=== PATIENT | female | born 1940 | race Caucasian/White ===

== ENCOUNTER 2019-12-03 08:39 | Outpatient (CLI) | payer MEDICARE, OTHER, SELFPAY ==
--- NOTE | ~2019-12-03 | MM_ITS ---
EXAMINATION: MM screening [place] [facility] w christofer HISTORY: Screening TECHNIQUE: Craniocaudal and mediolateral oblique 3-D tomosynthesis images were obtained and synthetic 2-D images were generated. CAD analysis was submitted and interpreted. COMPARISON: Comparison to multiple prior studies sequentially, with oldest reviewed study dated 02/02. BREAST PARENCHYMAL COMPOSITION: The breasts are heterogeneously dense, which may obscure small masses . FINDINGS: There stable benign breast calcifications. There is no evidence of suspicious mass, calcifi cation, or architectural distortion to suggest malignancy in either breast. There has been no suspici ous interval change. IMPRESSION: 1. No mammographic evidence of malignancy. 2. Recommend routine screening mammography in one year. BI-RADS Category 2: Benign finding(s). Reviewed, dictated and finalized at location A.
== END 2019-12-03 08:40 | disposition home or self-care (01) ==
PROVIDERS: PCP Obstetrics & Gynecology; Visit Provider Obstetrics & Gynecology
DX: Z12.31 Encounter for screening mammogram for malignant neoplasm of breast (principal)
CPT/HCPCS: 77063; 77067

== ENCOUNTER 2020-08-28 22:29 | Inpatient (IN) | payer MEDICARE, OTHER, SELFPAY ==
--- NOTE | ~2020-08-28 | US_ITS ---
EXAMINATION: US renal BI DATE: 08/29/2020 14:56 INDICATION: Severe right hydronephrosis TECHNIQUE: Multiple ultrasound grayscale images of the kidneys were obtained. COMPARISON: CT dated 08/28/2020 FINDINGS: The right kidney measures 12.4 x 5.9 x 7.7 cm. The left kidney which was severely atrophic with mild hydronephrosis on the prior CT images was unable to be visualized. There is increased cortical echoge nicity at the right kidney consistent with medical renal disease. 9 mm anechoic cyst at the lateral l ower pole of the right kidney. No shadowing nephrolithiasis. There is diffuse mild wall thickening th e bladder which remains fluid-filled despite the presence of a Hammer catheter. Some mobile hypoechoic clot is also seen within the bladder. IMPRESSION: 1. Slight improvement in still moderate right hydronephrosis which may be related to outlet obstruct ion with persistent fluid within the bladder despite the presence of a Hammer catheter. There is also some potentially obstructing hypoechoic clot within the bladder and would consider bladder irrigation . 2. Increased right renal cortical echogenicity consistent with medical renal disease. 3. Nonvisualized left kidney likely due to severe atrophy as seen on prior CT. Reviewed, dictated and finalized at location A. IMPRESSION: 1. Slight improvement in still moderate right hydronephrosis which may be rela stan to outlet obstruction with persistent fluid within the bladder despite the presence of a Hammer catheter. There is also some potentially obstructing hypoec hoic clot within the bladder and would consider bladder irrigation. 2. Increased right renal cortical echogenicity consistent with medical renal di sease. 3. Nonvisualized left kidney likely due to severe atrophy as seen on prior CT.
--- NOTE | ~2020-08-28 | CT_ITS ---
EXAMINATION: CT abdomen pelvis wo con DATE: 08/28/2020 23:31 INDICATION: Abdominal pain TECHNIQUE: Computed tomography (CT) of the abdomen and pelvis was performed without intravenous contr ast. The dose-length product was 417.58 mGy-cm. Automated exposure control and iterative reconstructi on technique were employed. COMPARISON: None. FINDINGS: There is right lower lobe atelectasis. Cardiomegaly. Small pericardial effusion. No signifi cant pleural effusion. There are extensive surgical changes in the upper abdomen suggesting gastric b ypass surgery. The liver, pancreas, adrenal glands are unremarkable. Severely atrophic left kidney wi th dilated renal pelvis. Possible left UPJ obstruction. There is severe right hydroureteronephrosis. The distal aspect of the ureter is not identifiable due to severe distention of the bladder. The this creates significant mass effect on the surrounding bowel. There is questionable gas in the posterior bladder wall, suspicious for emphysematous cystitis. There is a bone marrow donor site along the rig ht ilium. There are fusion changes at L5-S1 with bilateral cage prosthetic disc devices at L3-4 and L 4-5. IMPRESSION: 1. Severely dilated bladder with possible emphysematous cystitis. 2: Severe right hydroureteronephrosis. Distal aspect of the right ureter is not well visualized due t o bladder distention. 3: Severely atrophic left kidney with possible left UPJ obstruction. 4: Cardiomegaly with small pericardial effusion. Reviewed, dictated and finalized at location A. IMPRESSION: 1. Severely dilated bladder with possible emphysematous cystitis. 2: Severe right hydroureteronephrosis. Distal aspect of the right ureter is not well visualized due to bladder distention. 3: Severely atrophic left kidney with possible left UPJ obstruction. 4: Cardiomegaly with small pericardial effusion.
[2020-08-28 22:30] VITALS: BP 164/96; PULSE 72; RESP 20; TEMP 36.5; O2SAT 99
--- NOTE | 2020-08-28 22:40 | ED.ABDPAIN ---
HPI - Abdominal Pain General Chief Complaint: Abdominal Pain Stated Complaint: abd pain Time Seen by Provider: 08/28/20 22:40 Source: patient and family Mode of arrival: ambulatory Limitations: no limitations History of Present Illness HPI narrative: Patient is a 80-year-old female with a history of ischemic stroke 08/14/20, hospitalized at [facility], gastric bypass, bowel obstruction, hypertension who presents for evaluation of abdominal pain and distension. Patient has significant expressive aphasia secondary to her recent CVA, thus family provides the history. Patient reportedly has had lower abdominal pain and distention this evening with moaning and grimacing towards the abdomen. She has had decreased oral intake. No vomiting. Family is unsure the last time the patient had a bowel movement. She does have history of bowel obstruction in the past secondary to her gastric bypass surgery many years ago. Family is unsure the hospital that performed the gastric bypass. No fever, chills, cough or shortness of breath. Patient has been compliant with her medication. Pt with recent CVA, was given TPA and thrombectomy at [facility] with pt discharged home two weeks ago. Related Data Home Medications Medication Instructions Recorded Confirmed ascorbic acid (vitamin C) 500 mg mg PO 11/05/19 capsule atenolol 50 mg tablet 50 mg PO DAILY 11/05/19 calcium citrate 315 mg-vitamin D3 1 tablet PO TID 11/05/19 5 mcg (200 unit) tablet cholecalciferol (vitamin D3) 10 10 mcg PO DAILY 11/05/19 mcg (400 unit) capsule losartan 50 mg-hydrochlorothiazide 1 tablet PO DAILY 11/05/19 12.5 mg tablet mecobalamin (vitamin B12) 1,000 1,000 mcg SUBLINGUAL DAILY 11/05/19 mcg disintegrating tablet,sublingual misoprostol 200 mcg tablet 200 mcg PO QAM AND QHS 11/05/19 multivit with min-folic 1 tablet PO DAILY 11/05/19 acid-lutein 400 mcg-250 mcg chewable tablet omega 9-tch-ycz-fish oil 1,200 mg cap PO 11/05/19 (144 mg-216 mg) capsule vitamin B complex 1 tablet PO DAILY 11/05/19 vitamin E (dl, acetate) 90 mg (200 200 unit PO DAILY 11/05/19 unit) capsule Allergies Allergy/AdvReac Type Severity Reaction Status Date / Time naproxen Allergy Severe cardiac Verified 11/05/19 09:24 arrest NSAIDS (Non-Steroidal Allergy Severe cardiac Verified 11/05/19 09:24 Anti-Inflamma arrest morphine Allergy Mild unknown Verified 11/05/19 09:24 Review of Systems Review of Systems: ROS unobtainable: Yes unobtainable due to medical condition PMFSH Past Medical History Medical History History of gastroscopy 08/18/09, 09/09/09, with structure Hypertension Iron (Fe) deficiency anemia Kidney congenitally absent, 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 Vaginal delivery [birth year], , full term, female, 7#10 1970, , full term, female, 7#10 Surgical History Surgical History H/O rectal polypectomy 11/13/08, 08/27/03 H/O right heart catheterization 12/17/08 unsure if lt or rt History of breast biopsy 06/09/10, stereotactic, biopsy rt breast History of cholecystectomy 05/09/09 History of endoscopy 12/16/09, 02/10/10, 08/25/10, 04/26/18 History of esophagogastroduodenoscopy (EGD) 04/25/12, with upper GI History of eye surgery 11/05/14 cataract right eye, 11/20/14 cataract left eye, 07/28/18 bilateral removal of scar tissue 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pinal fusion 03/14/98 cervical discectomy and fusion of c4-6
[2020-08-28 22:50] LABS: Basophils Absolute Auto 0.1 K/mm3 (0.0-0.1); Basophils Percent Auto 0.7 % (0.2-1.2); Eosinophils Absolute Auto 0.2 K/mm3 (0-0.3); Eosinophils Percent Auto 2.2 % (0-4.4); Hematocrit 34.6 % (37.0-47.0); Hemoglobin 11.5 g/dL (12.0-15.0); Immature Granulocyte Absolute 0.04 K/mm3 (0.00-0.031); Immature Granulocyte Percent A 0.4 % (0-0.5); Lymphocytes Absolute Auto 1.35 K/mm3 (0.9-3.2); Lymphocytes Percent Auto 14.8 % (18.3-44.2); Mean Corpuscular HGB Conc 33.2 g/dl (32-36); Mean Corpuscular Hemoglobin 30.6 pg (26-34); Mean Platelet Volume 9.6 fl (7.4-10.4); Monocytes Absolute Auto 0.9 K/mm3 (0.1-0.6); Monocytes Percent Auto 9.4 % (2.6-8.5); Neutrophils Absolute Auto 6.6 K/mm3 (1.3-6.7); Neutrophils Percent Auto 72.5 % (45.5-73.1); Platelet Count Result 334 k/mm3 (150-375); Red Blood Count 3.76 M/mm3 (4.2-5.4); Red Cell Distribution Width 11.8 % (11.5-14.5); White Blood Count 9.1 K/mm3 (4.5-10.0)
[2020-08-28 23:00] LABS: Alanine Aminotransferase 12 U/L (4-35); Albumin Level 3.5 g/dL (3.5-5.1); Alkaline Phosphatase 85 U/L (38-126); Anion Gap 8 mmol/L (8-16); Aspartate Amino Transferase 23 U/L (14-36); Bilirubin,Total 0.6 mg/dL (0.2-1.3); Blood Urea Nitrogen 36 mg/dL (7-17); Carbon Dioxide 26 mmol/L (22-30); Chloride 101 mmol/L (98-107); Estimated CRCL calculation 10 ml/min; Estimated Glomerular Filt Rate 14; Glucose 124 mg/dL (65-105); Lipase 126 U/L (23-300); Sodium 135 mmol/L (137-145)
[2020-08-28 23:04] LABS: Atypical Lymphocytes Present; Platelet Estimate Adequate (Adequate)
[2020-08-28] MEDS: ONDANSETRON INJ 4 MG/2 ML VIAL IV PUSH (23:08)
[2020-08-28] MEDS: SODIUM CHLORIDE 0.9% IV 1,000 ML 999 ML IV CONT (23:08)
[2020-08-28] MEDS: HYDROmorphone HCL INJ (*CRX) 1 MG/ML SYR 0.5 MG IV PUSH (23:14)
--- NOTE | 2020-08-28 23:57 | PC.NURSE ---
2500ml of urine out via catheter at this time. sample sent to lab for UA and culture. RN clamped catheter at this time.
[2020-08-29] VITALS (8 sets, daily range): BP systolic 146–166; BP diastolic 67–83; PULSE 63–78; RESP 12–18; TEMP 35.8–36.6; O2SAT 94–99; BMI 23.0
[2020-08-29 00:17] LABS: Add Urine Microscopic? YES; Appearance Urine Clear (Clear); Bacteria Urine Trace /hpf; Bilirubin Urine Negative (Negative); Blood Urine Negative (Negative); Color Urine Straw (Yellow); Glucose Urine UA Negative (Negative); Ketones Urine Negative (Negative); Leukocyte Esterase Ur 2+ LEU/UL (Negative); Nitrate Urine Negative (Negative); Protein Urine Negative (Negative); Specific Grav Ur 1.006 (1.001-1.035); Squamous Epithelial Cell Urine Rare /hpf (Few); Urobilinogen Urine Negative mg/dL (<2.0); WBC Urine 16-20 /hpf
[2020-08-29 00:45] LABS: Lactic Acid Reflex 0.7 mmol/L (0.7-2.1)
--- NOTE | 2020-08-29 01:33 | PC.NURSE ---
Pt arrived from personal residence c daughter who reports pt has increased c/o abd pain and discomfort today. Per daughter, pt had a cva 07/2020 and was given tpa. currently lives at home c 24hour care. daughter denies that pt has any physical deficits, and pt able to ambulate independently. pt does have delayed speech, unsure if expressive or receptive aphasia. pt able to answer yes or no questions appropriately. abd hard on arrival. stone placed with output of >2500 ml urine. pt reports to this RN she feels better. Pt's daughter at bedside.
--- NOTE | 2020-08-29 02:10 | ADMGEN ---
This patient, Nicole Patricia, was admitted to Medical Room 347-01. Patient/family oriented to hospital policies and general routines including ID bracelet, bed and alarms, visiting hours, pain management, procedures, bathroom and other care routines, personal items, smoking policy, room service/diet, and visiting hours. Information on how to activate the Rapid Response Team has been discussed. Patient/Family are encouraged to report perceived risks to care and to ask questions if they do not understand what they are told or what they should do.
--- NOTE | 2020-08-29 02:18 | PC.NURSE ---
Prior to transport to Room 347-1, this RN was getting pt ready and upon assessing stone bag output, urine noted to now be bright red with visible clots approx size of a dime in catheter tubing. prior to this, urine appeared clear and yellow. ED MD Vaz notified of change, as well as admitting RN. No new orders provided. pt denies pain and does not appear to be in any distress. pt transported to 347 without difficulty.
--- NOTE | 2020-08-29 03:06 | PC.NURSE ---
Tried to obtain health history from patient when doing admission but patient kept saying no for every question and does not know home medications. Call placed to Patient's daughter and a message was left asking her to call us back at the nursing station to go over patients past medical history and medications. Will await call from daughter and then complete admission.
--- NOTE | 2020-08-29 06:40 | WPDURCON ---
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 Right hydronephrosis and renal dysfunction likely resulting from incomplete bladder emptying. Await repeat labs to see if her renal function is improved with bladder drainage. Will also schedule a renal ultrasound to follow-up on right hydronephrosis. This may not completely resolve if she has had long-standing upper tract distention. Complete atrophy of her left kidney appears to be a longstanding process, likely resulting from ischemia. There is nothing to do for this at this point. My anticipation is that her renal function and hydronephrosis will resolve with catheter placement. She will likely need to have a catheter indwelling until she can follow-up for outpatient urodynamics. Urology Consult Note HPI Date Seen: 08/29/20 Requesting Physician: Irina Kendrick DO Primary Care Provider: FEATHER BONER PHYSICIAN Consult Narrative Narrative: Nicole Patricia is a 80 year old female, previously a known to our practice, who is confused and unable to supply a reliable history. She has multiple comorbidities as outlined elsewhere. She presented to the emergency department with suggestion of abdominal discomfort. With examination she was easily noticed to have bladder distention, confirmed by CT scan. Catheter placement her abdominal distention resolved and she appears to be feeling better. CT imaging reveals massive bladder distention with right hydronephrosis and an atrophic left kidney. 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 Vaginal delivery 1960, , full term, female, 7#10 1969, , full term, female, 7#10 Surgical History Surgical History H/O rectal polypectomy 11/13/08, 08/27/03 H/O right heart catheterization 12/17/08 unsure if lt or rt History of breast biopsy 06/09/10, stereotactic, biopsy rt breast History of cholecystectomy 05/09/09 History of endoscopy 12/16/09, 02/10/10, 08/25/10, 04/26/18 History of esophagogastroduodenoscopy (EGD) 04/25/12, with upper GI History of eye surgery 11/05/14 cataract right eye, 11/20/14 cataract left eye, 07/28/18 bilateral removal of scar tissue 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ing MARCUS L4-5, L3-4, Doscectomy/fusion lt iliac crest graft 10/12/01 cervical discectomy and fusion of c6-7 History of spinal surgery 02/10/16 lumbar decompressive laminectomy, transformal lumbar interbody fusion with PEEK spacers, posterior intertransverse fusion, posterior spinal instrumentation, harvesting bone graft History of stress incontinence procedure usin
--- NOTE | 2020-08-29 07:06 | PM.IMHP ---
H&P: HPI History of Present Illness Date/Time: 08/29/20 06:30 Chief Complaint: Abdominal pain Narrative: 80-year-old female with past medical history of ischemic stroke 08/14/2020, gastric bypass procedure of prior bowel obstruction and hypertension who presented to the ER from home with abdominal pain and distension. Source of information is ER records as the patient has significant expressive aphasia and difficulty following commands following her recent CVA. Nursing staff attempted to contact the family but there was no response. The patient's family told the ER staff that the patient had been moaning and grimacing and gesturing towards her abdomen. She had had decreased oral intake. She had not been having any vomiting. The family was unsure as to when the patient had had her last bowel movement. In the ER noncontrast CT scan was performed of the abdomen which demonstrated marked dilatation of the bladder and significant right hydroureter. Her left kidney was noted to be atrophic. 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 A Hammer catheter was placed in the ER and the patient had immediate return of 2.5 L of urine. They did not clamped the patient's Hammer catheter. By the time patient arrived to the medical floor she had bloody urine in the Hammer bag with a few blood clots. The patient was treated at [facility] for her ischemic stroke 08/14/2020. She had tPA and thrombectomy. She was discharged home 2 weeks ago. The patient has difficulty following commands with the left side of her body. 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 She mostly speaks in word salad. She will answer yes and no questions with her responses seeming appropriate. Review of Systems Review of Systems: ROS unobtainable: Yes unobtainable due to medical condition (Expressive aphasia) [facility] Past Medical History Medical History (Updated 08/29/20 @ 07:22 by Irina Kendrick DO) Atrophy of left kidney History of gastroscopy 08/18/09, 09/09/09, with structure Hypertension Iron (Fe) deficiency anemia Ischemic cerebrovascular accident (CVA) (08/14/20) Treated with tPA and thrombectomy Vaginal delivery 1960, , full term, female, 7#10 1970, , full term, female, 7#10 Surgical History Surgical History H/O rectal polypectomy 11/13/08, 08/27/03 H/O right heart catheterization 12/17/08 unsure if lt or rt History of breast biopsy 06/09/10, stereotactic, biopsy rt breast History of cholecystectomy 05/09/09 History of endoscopy 12/16/09, 02/10/10, 08/25/10, 04/26/18 History of esophagogastroduodenoscopy (EGD) 04/25/12, with upper GI History of eye surgery 11/05/14 cataract right eye, 11/20/14 cataract left eye, 07/28/18 bilateral removal of scar tissue 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ing MARCUS L4-5, L3-4, Doscectomy/fusion lt iliac crest graft 10/12/01 cervical discectomy and fusion of c6-7 History of spinal surgery 02/10/16 lumbar decompressive laminectomy, transformal lumbar interbody fusion with PEEK spacers, posterior intertransverse fusion, posterior spinal instrumentation, harvesting bone graft History of stress incontinence procedure using tension free vaginal tape 05/18/01 Hx of breast surgery 07/27/10, mastopexy Family History Family History Grandparent Family history of malignant neoplasm of ovary
[2020-08-29] MEDS: SODIUM CHLORIDE 0.9% IV 1,000 ML 100 ML IV CONT (07:47)
[2020-08-29 08:14] LABS: Anion Gap 5 mmol/L (8-16); Blood Urea Nitrogen 30 mg/dL (7-17); Calcium 8.6 mg/dL (8.4-10.2); Carbon Dioxide 29 mmol/L (22-30); Chloride 106 mmol/L (98-107); Estimated CRCL calculation 11 ml/min; Estimated Glomerular Filt Rate 15; Glucose 91 mg/dL (65-105); Potassium 4.9 mmol/L (3.4-5.0); Sodium 140 mmol/L (137-145)
[2020-08-29 08:17] LABS: Hematocrit 29.6 % (37.0-47.0); Hemoglobin 9.9 g/dL (12.0-15.0); Mean Corpuscular HGB Conc 33.4 g/dl (32-36); Mean Corpuscular Hemoglobin 30.9 pg (26-34); Mean Corpuscular Volume 92.5 fl (80-100); Mean Platelet Volume 10.3 fl (7.4-10.4); Platelet Count Result 303 k/mm3 (150-375); Red Cell Distribution Width 11.7 % (11.5-14.5); White Blood Count 6.6 K/mm3 (4.5-10.0)
--- NOTE | 2020-08-29 09:22 | PC.NURSE ---
Patient's daughter called for status update; PMH reviewed and medication list updated per daughter.
--- NOTE | 2020-08-29 11:07 | PM.IMPN ---
Progress Note: A&P Assessment and Plan (1) Hydronephrosis, right: Code(s): N13.30 - Unspecified hydronephrosis Status: Acute (2) Acute urinary retention: Code(s): R33.8 - Other retention of urine Status: Acute (3) Acute kidney injury: Code(s): N17.9 - Acute kidney failure, unspecified Status: Acute (4) Emphysematous cystitis: Code(s): N30.80 - Other cystitis without hematuria Status: Acute (5) Hematuria, gross: Code(s): R31.0 - Gross hematuria Status: Acute Additional Plan Patiet presents with abdoinal pain and found to have acute urinary retention resulting in obstructive uropathy and severe right hydronephrosis in setting with the patient with an atrophic left kidney. The patient had rapid decompression of her bladder and subsequently has developed hematuria. UA noted. She was started on Rocephin for suspected emphysematous cystitis. Urine cultures are pending. Cr 3. on admission but already trended down. Baseline Cr unknown. Will need old records to review. Urology has been consulted. Resume home medications but hold Plavix. Also on Atenolol and Coreg and will continue the latter of the two. Hold Losartan and HCTZ for now. Resume PT/OT. Subjective Date/time seen: 08/29/20 11:07 Interval history: 80yo female with hx of CVA and has expressive aphasia here for abdominal pain. Patient is alert but aphasic and have difficulty obtaining hx. She denies chest pain. No further abd pain. Eating okay and denies n/v. Exam Narrative: Exam Narrative: AF 97.7 148/80 68 17 98% ra Gen - NARD Chest - decreased BS in the bases o/w clear. nmlRR CV - RRR S1/S2 Abd - Soft, NT/ND, Positive BS - Hammer secured with gross hematuria and clots in the urine Ext - No pedal edema Neuro - Alert. aphasic. difficulty following commands. right sided 4/5 weakness. Psych - pleasant and cooperative Skin - Warm and dry Objective Data Vital Signs Vital Signs: Vital Signs - 24 hr 08/28/20 22:30 08/29/20 00:16 08/29/20 01:26 Temperature 97.7 F Pulse Rate 72 78 63 Respiratory Rate 20 12 16 Blood Pressure 164/96 H 161/80 H 162/70 H Pulse Oximetry 99 99 94 08/29/20 01:53 08/29/20 05:12 Temperature 97.7 F Pulse Rate 63 68 Respiratory Rate 16 17 Blood Pressure 150/69 H 148/80 H Pulse Oximetry 94 98 Intake/Output Intake/Output: Intake & Output 08/26/20 08/27/20 08/28/20 08/29/20 23:59 23:59 23:59 23:59 Intake Total 1170 Output Total 1550 Balance -380 Meds/Results Medications: Active Medications Generic Name Dose Route Start Last Admin Trade Name Freq PRN Reason Stop Dose Admin Sodium Chloride 1,000 mls @ 100 mls/hr 08/29/20 07:25 08/29/20 07:47 Normal Saline Iv IV CONT 100 mls/hr .Q10H MADY Administration Ceftriaxone Sodium/Dextrose 1 gm in 50 mls @ 100 mls/hr 08/30/20 05:00 Rocephin 1 Gm/D5w 50 Ml IVPB Q24H [facility] Radiology Results: ITS Impressions Abdomen/Pelvis CT 08/28/20 23:33 IMPRESSION: 1. Severely dilated bladder with possible emphysematous cystitis. 2: Severe right hydroureteronephrosis. Distal aspect of the right ureter is not well visualized due to bladder distention. 3: Severely atrophic left kidney with possible left UPJ obstruction. 4: Cardiomegaly with small pericardial effusion. Labs Labs: Laboratory Results - last 24 hr 08/28/20 08/28/20 08/28/20 22:46 22:46 23:56 WBC 9.1 RBC 3.76 L Hgb 11.5 L Hct 34.6 L MCV 92.0 MCH 30.6 MCHC 33.2 RDW 11.8 Plt Count 334 MPV 9.6 Immature Gran % (Auto) 0.4 Neut % (Auto) 72.5 Lymph % (Auto) 14.8 L [place] % (Auto) 9.4 H Eos % (Auto) 2.2 Baso % (Auto) 0.7 Lymph # (Auto) 1.35 [place] # (Auto) 0.9 H Eos # (Auto) 0.2 Baso # (Auto) 0.1 Abs Immat Gran (auto) 0.04 H Absolute Neuts (auto) 6.6 Absolute Nucleated RBC 0.0 Nucleated RBC % 0.0 Atypical Lymph
--- NOTE | 2020-08-29 14:38 | PCOTNOTE ---
OT evaluation attempted. Patient down for testing. Will attempt at later time.
[2020-08-29] MEDS: carvediloL 25 MG TABLET PO ×2 (16:18→21:13)
[2020-08-30 05:40] LABS: Hemoglobin 10.4 g/dL (12.0-15.0); Mean Corpuscular HGB Conc 33.5 g/dl (32-36); Mean Corpuscular Hemoglobin 30.7 pg (26-34); Mean Corpuscular Volume 91.4 fl (80-100); Mean Platelet Volume 9.9 fl (7.4-10.4); Platelet Count Result 321 k/mm3 (150-375); Red Blood Count 3.39 M/mm3 (4.2-5.4); Red Cell Distribution Width 11.7 % (11.5-14.5); White Blood Count 7.4 K/mm3 (4.5-10.0)
[2020-08-30 05:49] LABS: Alanine Aminotransferase 10 U/L (4-35); Albumin Level 2.9 g/dL (3.5-5.1); Alkaline Phosphatase 77 U/L (38-126); Anion Gap 4 mmol/L (8-16); Aspartate Amino Transferase 23 U/L (14-36); Bilirubin,Total 0.3 mg/dL (0.2-1.3); Blood Urea Nitrogen 25 mg/dL (7-17); Calcium 8.7 mg/dL (8.4-10.2); Carbon Dioxide 29 mmol/L (22-30); Chloride 105 mmol/L (98-107); Estimated CRCL calculation 15 ml/min; Estimated Glomerular Filt Rate 21; Glucose 97 mg/dL (65-105); Phosphorus 5.2 mg/dL (2.5-4.5); Potassium 4.6 mmol/L (3.4-5.0); Sodium 138 mmol/L (137-145)
[2020-08-30 05:55] VITALS: BP 137/83; PULSE 74; RESP 16; TEMP 36.5; O2SAT 98
--- NOTE | 2020-08-30 07:21 | WPDUROPN2 ---
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 Right hydronephrosis and renal dysfunction likely resulting from incomplete bladder emptying. Await repeat labs to see if her renal function is improved with bladder drainage. Will also schedule a renal ultrasound to follow-up on right hydronephrosis. This may not completely resolve if she has had long-standing upper tract distention. Complete atrophy of her left kidney appears to be a longstanding process, likely resulting from ischemia. There is nothing to do for this at this point. My anticipation is that her renal function and hydronephrosis will resolve with catheter placement. She will likely need to have a catheter indwelling until she can follow-up for outpatient urodynamics. 08/30/20 Yesterday, based on renal ultrasound results showing possible clots in her bladder, I irrigated several clots without difficulty at the bedside. Ever since, her urine has been draining freely and is now clear. . Serum creatinine improved significantly today. As above, will plan to leave catheter in snf, at least until she can have outpatient urodynamics. Subjective Subjective Date/Time Seen: 08/30/20 07:21 Comfortable, catheter draining well - urine clear. Review of Systems Review of Systems: ROS unobtainable: Yes unobtainable due to mental status Exam Const: General: no acute distress Resp: Effort & Inspection: normal respiratory effort GI: Inspection: non-distended GI Palp: No abdominal tenderness and No Guarding due to palpation present (GI) Auscultation: normal bowel sounds Objective Data Vital Signs Vital Signs: Vital Signs - 24 hr 08/29/20 16:01 08/29/20 16:18 08/29/20 21:12 Temperature 96.5 F L 97.8 F Pulse Rate 64 64 66 Respiratory Rate 18 15 Blood Pressure 166/83 H 146/67 H Pulse Oximetry 96 97 08/29/20 21:13 08/30/20 05:55 Temperature 97.7 F Pulse Rate 64 74 Respiratory Rate 16 Blood Pressure 137/83 Pulse Oximetry 98 Intake/Output Intake/Output: Intake & Output 08/27/20 08/28/20 08/29/20 08/30/20 23:59 23:59 23:59 23:59 Intake Total 1824 400 Output Total 3500 1999 Balance -4504 -1600 Meds/Results Medications: Active Medications Generic Name Dose Route Start Last Admin Trade Name Freq PRN Reason Stop Dose Admin Atorvastatin Calcium 80 mg 08/30/20 09:00 Atorvastatin 40 Mg Tablet PO DAILY MADY Carvedilol 25 mg 08/29/20 11:15 08/29/20 21:13 Carvedilol 25 Mg Tablet PO 25 mg Q12HR MADY Administration Ceftriaxone Sodium/Dextrose 1 gm in 50 mls @ 100 mls/hr 08/30/20 05:00 08/30/20 05:33 Rocephin 1 Gm/D5w 50 Ml IVPB Infused Q24H MADY Infusion Pantoprazole Sodium 40 mg 08/30/20 09:00 Pantoprazole 40 Mg Tablet PO DAILY [facility] Radiology Results: ITS Impressions Abdomen/Pelvis CT 08/28/20 23:33 IMPRESSION: 1. Severely dilated bladder with possible emphysematous cystitis. 2: Severe right hydroureteronephrosis. Distal aspect of the right ureter is not well visualized due to bladder distention. 3: Severely atrophic left kidney with possible left UPJ obstruction. 4: Cardiomegaly with small pericardial effusion. Renal Ultrasound 08/29/20 14:58 IMPRESSION: 1. Slight improvement in still moderate right hydronephrosis which may be related to outlet obstruction with persistent fluid within the bladder despite the p
[2020-08-30] MEDS: PANTOPRAZOLE 40 MG TABLET PO (09:27)
[2020-08-30] MEDS: ATORVASTATIN 40 MG TABLET 80 MG PO (09:27)
[2020-08-30 09:28] VITALS: PULSE 80
[2020-08-30] MEDS: carvediloL 25 MG TABLET PO ×2 (09:28→20:31)
--- NOTE | 2020-08-30 11:12 | PM.IMPN ---
Progress Note: A&P Assessment and Plan (1) Acute urinary retention: Code(s): R33.8 - Other retention of urine Status: Acute Assessment and Plan: Likely due to recent CVA--neurogenic bladder? -Hammer in place and the plan is for her to be discharged on this -Pt's bladder was decompressed rapidly which likely caused the hematuria/clots -u/s 08/29 showed slight improvement in moderate right hydronephrosis. Urology flushed the catheter and did gets some clots out. Hopefully this will improve her hydronephrosis. (2) Acute kidney injury: Code(s): N17.9 - Acute kidney failure, unspecified Status: Acute Assessment and Plan: Unclear of baseline at this time -May have some component of CKD since she has severe atrophy of her left kidney -Will give her 500mls of LR at 50mls/hr to see if this will improve her kidney function, will monitor for fluid overload. Daughter denies hx of CHF -await records -continue to hold losartan and chorthalidone at this time (3) Hydronephrosis, right: Code(s): N13.30 - Unspecified hydronephrosis Status: Acute Assessment and Plan: Likely due to urinary retention -continue ceftriaxone for possible infection although UA looks okay -Hammer catheter was flushed 08/29/20 by urology and her creatinine improved with this (4) Hematuria, gross: Code(s): R31.0 - Gross hematuria Status: Acute Assessment and Plan: As above -because of her recent stroke (07/15/20) will restart plavix and monitor for symptoms. Spoke with Dr. chávez about this plan. (5) History of recent stroke: Code(s): Z86.73 - Personal history of transient ischemic attack (TIA), and cerebral infarction without residual deficits Status: Acute Assessment and Plan: Pt [facility] 07[facility] where she had tPa and thrombectomy -She continues to have expressive aphasia but no other significant deficits -Will restart plavix at this time -continue PT/OT/ST (6) Atrophy of left kidney: Code(s): N26.1 - Atrophy of kidney (terminal) Status: Acute Assessment and Plan: Noted on imaging -she will need routine monitoring of her kidney function outpt (7) Expressive aphasia: Code(s): R47.01 - Aphasia Status: Acute Assessment and Plan: Unchanged since her stroke last month -Continue ST (8) Hypertension: Code(s): I10 - Essential (primary) hypertension Status: Acute Assessment and Plan: last bp 137/83 -continue coreg -hold losartan -plan to d/c atenolol at discharge Time Spent With Patient Time with patient: 25 - 35 minutes Subjective Date/time seen: 08/30/20 11:12 Interval history: Pt is a 80-year-old female here for hydronephrosis, MARIELLA, and bladder clots. Patient was seen today and has some baseline expressive aphasia but is able to answer yes or no questions and hold a conversation. Patient states she is doing well and is currently not in any pain. Pt denies nausea, vomiting, fevers, chills, constipation, diarrhea, chest pain, sob, or abdominal pain. She is eating and drinking well. Review of Systems Review of Systems: All systems reviewed & are unremarkable except as noted in HPI and below Exam Narrative: Exam Narrative: General: Well developed well nourished patient in NAD HEENT: normocephalic Neck: supple Neuro: Expressive aphasia. Equal strength the upper lower extremities 5/5 CV:RRR Resp:CTA Abd: Soft, non distended. No pain to palpation. Positive bowel sounds Extremities: No swelling, erythema, or pain to palpation. Objective Data Vital Signs Vital Signs: Vital Signs - 24 hr 08/29/20 16:01 08/29/20 16:18 08/29/20 21:12 Temperature 96.5 F L 97.8 F Pulse Rate 64 64 66 Respiratory Rate 18 15 Blood Pressure 166/83 H 146/67 H Pulse Oximetry 96 97 08/29/20 21:13 08/30/20 05:55 08/30/20 09:28 Temperature 97.7 F Pulse Rate 64
[2020-08-30] MEDS: CLOPIDOGREL BISULFATE 75 MG TABLET PO (12:00)
[2020-08-30] MEDS: LACTATED RINGERS 500 ML 50 ML IV CONT (12:00)
[2020-08-30 14:00] VITALS: BP 127/72; PULSE 75; RESP 16; TEMP 37; O2SAT 98
[2020-08-30] MEDS: CYCLOBENZAPRINE HCL 10 MG TABLET PO (17:21)
[2020-08-30 20:07] VITALS: BP 136/78; PULSE 76; RESP 16; TEMP 36.2; O2SAT 94
[2020-08-30 20:31] VITALS: PULSE 76
[2020-08-31 05:52] VITALS: BP 151/79; PULSE 70; RESP 16; TEMP 36; O2SAT 97
[2020-08-31 05:52] LABS: Anion Gap 3 mmol/L (8-16); Blood Urea Nitrogen 22 mg/dL (7-17); Calcium 8.5 mg/dL (8.4-10.2); Carbon Dioxide 28 mmol/L (22-30); Chloride 106 mmol/L (98-107); Estimated CRCL calculation 18 ml/min; Estimated Glomerular Filt Rate 26; Glucose 93 mg/dL (65-105); Potassium 3.8 mmol/L (3.4-5.0); Sodium 137 mmol/L (137-145)
[2020-08-31 08:09] VITALS: PULSE 78
[2020-08-31] MEDS: ATORVASTATIN 40 MG TABLET 80 MG PO (08:09)
[2020-08-31] MEDS: carvediloL 25 MG TABLET PO ×2 (08:09→20:43)
[2020-08-31] MEDS: PANTOPRAZOLE 40 MG TABLET PO (08:09)
[2020-08-31] MEDS: CLOPIDOGREL BISULFATE 75 MG TABLET PO (08:09)
--- NOTE | 2020-08-31 09:25 | WPDUROPN2 ---
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 Right hydronephrosis and renal dysfunction likely resulting from incomplete bladder emptying. Await repeat labs to see if her renal function is improved with bladder drainage. Will also schedule a renal ultrasound to follow-up on right hydronephrosis. This may not completely resolve if she has had long-standing upper tract distention. Complete atrophy of her left kidney appears to be a longstanding process, likely resulting from ischemia. There is nothing to do for this at this point. My anticipation is that her renal function and hydronephrosis will resolve with catheter placement. She will likely need to have a catheter indwelling until she can follow-up for outpatient urodynamics. 08/30/20 Yesterday, based on renal ultrasound results showing possible clots in her bladder, I irrigated several clots without difficulty at the bedside. Ever since, her urine has been draining freely and is now clear. . Serum creatinine improved significantly today. As above, will plan to leave catheter in snf, at least until she can have outpatient urodynamics. 08/31/20 Urine remains clear following resumption of anticoagulation. Subjective Subjective Date/Time Seen: 08/31/20 09:25 Exam Const: General: comfortable, no acute distress and confusion Nutritional Appearance: average body habitus Orientation/consciousness: No oriented to place, No oriented to time and confusion HENMT: Head: normal to inspection Resp: Effort & Inspection: normal respiratory effort GI: Inspection: normal to inspection and non-distended Auscultation: normal bowel sounds Urinary Catheter: Urinary Catheter: patent and draining and urine pink Neuro: General: No oriented to place, No oriented to time and confusion Objective Data Vital Signs Vital Signs: Vital Signs - 24 hr 08/30/20 09:28 08/30/20 14:00 08/30/20 20:07 Temperature 98.6 F 97.2 F L Pulse Rate 80 75 76 Respiratory Rate 16 16 Blood Pressure 127/72 136/78 Pulse Oximetry 98 94 08/30/20 20:31 08/31/20 05:52 08/31/20 08:09 Temperature 96.8 F L Pulse Rate 76 70 78 Respiratory Rate 16 Blood Pressure 151/79 H Pulse Oximetry 97 Intake/Output Intake/Output: Intake & Output 08/28/20 08/29/20 08/30/20 08/31/20 23:59 23:59 23:59 23:59 Intake Total 1824 1730 200 Output Total 3500 2850 1350 [facility] [id number] [id number] [id number] Meds/Results Medications: Active Medications Generic Name Dose Route Start Last Admin Trade Name Freq PRN Reason Stop Dose Admin Atorvastatin Calcium 80 mg 08/30/20 09:00 08/31/20 08:09 Atorvastatin 40 Mg Tablet PO 80 mg DAILY MADY Administration Carvedilol 25 mg 08/29/20 11:15 08/31/20 08:09 Carvedilol 25 Mg Tablet PO 25 mg Q12HR MADY Administration Clopidogrel Bisulfate 75 mg 08/30/20 11:20 08/31/20 08:09 Clopidogrel Bisulfate 75 Mg Tablet PO 75 mg DAILY MADY Administration Cyclobenzaprine HCl 10 mg 08/30/20 16:53 08/30/20 17:21 Cyclobenzaprine Hcl 10 Mg Tablet PO 10 mg Q8H PRN Administration Muscle Spasm Ceftriaxone Sodium/Dextrose 1 gm in 50 mls @ 100 mls/hr 08/30/20 05:00 08/31/20 04:41 Rocephin 1 Gm/D5w 50 Ml IVPB Infused Q24H MADY Infusion Pantoprazole Sodium 40 mg 08/30/20 09:00 08/31/20 08:09 Pantoprazole 40 Mg Tablet PO 40 mg DAILY MAYD Administration
--- NOTE | 2020-08-31 12:27 | PM.IMPN ---
Progress Note: A&P Assessment and Plan (1) Acute urinary retention: Code(s): R33.8 - Other retention of urine Status: Acute Assessment and Plan: Likely due to recent CVA--neurogenic/atonic bladder? -Stone in place and the plan is for her to be discharged on this -Pt's bladder was decompressed rapidly which likely caused the hematuria/clots -u/s 08/29 showed slight improvement in moderate right hydronephrosis. Urology flushed the catheter and did gets some clots out. Hopefully this will improve her hydronephrosis. (2) Acute kidney injury: Code(s): N17.9 - Acute kidney failure, unspecified Status: Acute Assessment and Plan: improving daily, Cr 1.9 today down from 3.3 on admission - Unclear of baseline at this time -May have some component of CKD since she has severe atrophy of her left kidney -Will give her another 500mls of LR at 50mls/hr to see if this will improve her kidney function, will monitor for fluid overload. Daughter denies hx of CHF -await records -continue to hold losartan and chorthalidone at this time (3) Hydronephrosis, right: Code(s): N13.30 - Unspecified hydronephrosis Status: Acute Assessment and Plan: Likely due to urinary retention -continue ceftriaxone for possible infection although UA looks okay -Stone catheter was flushed 08/29/20 by urology and her creatinine improved with this (4) Hematuria, gross: Code(s): R31.0 - Gross hematuria Status: Acute Assessment and Plan: As above -because of her recent stroke (07/15/20) plavix was restarted 08/30 -no further hematuria (5) History of recent stroke: Code(s): Z86.73 - Personal history of transient ischemic attack (TIA), and cerebral infarction without residual deficits Status: Acute Assessment and Plan: Pt had a stroke at [facility] where she had tPa and thrombectomy -She continues to have expressive aphasia but no other significant deficits -continue plavix at this time -continue PT/OT/ST (6) Atrophy of left kidney: Code(s): N26.1 - Atrophy of kidney (terminal) Status: Acute Assessment and Plan: Noted on imaging -she will need routine monitoring of her kidney function outpt (7) Expressive aphasia: Code(s): R47.01 - Aphasia Status: Acute Assessment and Plan: Unchanged since her stroke last month -Continue ST (8) Hypertension: Code(s): I10 - Essential (primary) hypertension Status: Acute Assessment and Plan: last bp 151/79 -continue coreg -hold losartan -plan to d/c atenolol at discharge Subjective Date/time seen: 08/31/20 12:27 Interval history: Pt is a 80-year-old female here for hydronephrosis, MARIELLA, and bladder clots. Patient was seen today and has some baseline expressive aphasia but is able to answer yes or no questions. Patient states she is doing well and is currently not in any pain. Pt denies nausea, vomiting, fevers, chills, constipation, diarrhea, chest pain, sob, or abdominal pain. She is eating and drinking well. Exam Narrative: Exam Narrative: General: Well developed well nourished patient in NAD HEENT: normocephalic Neck: supple Neuro: Expressive aphasia. Equal strength the upper lower extremities 5/5 CV:RRR Resp:CTA Abd: Soft, non distended. No pain to palpation. Positive bowel sounds Extremities: No swelling, erythema, or pain to palpation. stone: clear yellow urine, very few clots Objective Data Vital Signs Vital Signs: Vital Signs - 24 hr 08/30/20 14:00 08/30/20 20:07 08/30/20 20:31 Temperature 98.6 F 97.2 F L Pulse Rate 75 76 76 Respiratory Rate 16 16 Blood Pressure 127/72 136/78 Pulse Oximetry 98 94 08/31/20 05:52 08/31/20 08:09 Temperature 96.8 F L Pulse Rate 70 78 Respiratory Rate 16 Blood Pressure 151/79 H Pulse Oximetry 97 Intake/Output Intake/Output: Intake & Output 08/28/20
[2020-08-31] MEDS: LACTATED RINGERS 500 ML 50 ML IV CONT (13:31)
[2020-08-31 14:00] VITALS: BP 147/80; PULSE 84; RESP 18; TEMP 36.9; O2SAT 97
[2020-08-31] MEDS: CYCLOBENZAPRINE HCL 10 MG TABLET PO (15:23)
[2020-08-31 20:27] VITALS: BP 130/74; PULSE 87; RESP 16; TEMP 36.2; O2SAT 97
[2020-08-31 20:43] VITALS: PULSE 87
[2020-09-01 05:04] VITALS: BP 139/76; PULSE 72; RESP 16; TEMP 36.3; O2SAT 97
[2020-09-01 05:39] LABS: Hematocrit 30.8 % (37.0-47.0); Hemoglobin 10.4 g/dL (12.0-15.0)
[2020-09-01 06:01] LABS: Anion Gap 5 mmol/L (8-16); Blood Urea Nitrogen 20 mg/dL (7-17); Calcium 8.6 mg/dL (8.4-10.2); Carbon Dioxide 27 mmol/L (22-30); Chloride 103 mmol/L (98-107); Estimated CRCL calculation 21 ml/min; Estimated Glomerular Filt Rate 31; Glucose 94 mg/dL (65-105); Potassium 3.4 mmol/L (3.4-5.0); Sodium 135 mmol/L (137-145)
[2020-09-01 09:03] VITALS: PULSE 72
[2020-09-01] MEDS: carvediloL 25 MG TABLET PO (09:03)
[2020-09-01] MEDS: CLOPIDOGREL BISULFATE 75 MG TABLET PO (09:03)
[2020-09-01] MEDS: PANTOPRAZOLE 40 MG TABLET PO (09:03)
[2020-09-01] MEDS: POTASSIUM CHLORIDE 20 MEQ TABLET PO (09:03)
[2020-09-01] MEDS: ATORVASTATIN 40 MG TABLET 80 MG PO (09:03)
--- NOTE | 2020-09-01 12:32 | PM.DS ---
DS: Admitting Diagnosis Admitting Diagnosis Admitting Diagnosis: urinary retention DS: Discharge Diagnosis Discharge Diagnosis (1) Acute urinary retention: Code(s): R33.8 - Other retention of urine Status: Acute Assessment and Plan: Likely due to recent CVA--neurogenic/atonic bladder? -Hammer in place and was discharged on this until she follows up with urology for urodynamics and outpt evaluation. -Pt's bladder was decompressed rapidly when admitted which likely caused the hematuria/clots -u/s 08/29 showed slight improvement in moderate right hydronephrosis. Urology flushed the catheter and did gets some clots out. This improved her kidney function. (2) Acute kidney injury: Code(s): N17.9 - Acute kidney failure, unspecified Status: Acute Assessment and Plan: improving daily, Cr 1.6 at discharge down from 3.3 on admission -anticipate this will improve overtime. Will repeat BMP in one week and urology will follow -hold chlorthalidone and losartan for 3 days while kidneys recover then restart outpt -May have some component of CKD since she has severe atrophy of her left kidney (3) Hydronephrosis, right: Code(s): N13.30 - Unspecified hydronephrosis Status: Acute Assessment and Plan: Likely due to urinary retention -Ucx neg, she was given 4 days of abx and no further abx needed. -Hammer catheter was flushed 08/29/20 by urology and her creatinine improved with this -follow up as stated above (4) Hematuria, gross: Code(s): R31.0 - Gross hematuria Status: Acute Assessment and Plan: As above -because of her recent stroke (07/15/20) plavix was restarted 08/30 with no hematuria (5) History of recent stroke: Code(s): Z86.73 - Personal history of transient ischemic attack (TIA), and cerebral infarction without residual deficits Status: Acute Assessment and Plan: Pt had a stroke at [facility] 07/15/20 where she had tPa and thrombectomy -She continues to have expressive aphasia but no other significant deficits -continue plavix at this time -continue PT/OT/ST per outpt (6) Atrophy of left kidney: Code(s): N26.1 - Atrophy of kidney (terminal) Status: Acute Assessment and Plan: Noted on imaging -she will need routine monitoring of her kidney function outpt (7) Expressive aphasia: Code(s): R47.01 - Aphasia Status: Acute Assessment and Plan: Unchanged since her stroke last month (8) Hypertension: Code(s): I10 - Essential (primary) hypertension Status: Acute Assessment and Plan: last bp 139/76 -continue coreg -hold losartan and chlorthalidone until 09/04/20 to help kidneys recover - atenolol stopped at d/c since she was on coreg DS: Summary Hospital Course Hospital Course: Patient is a 80-year-old female with a recent history of CVA who presented to the emergency room for abdominal pain and distension found to have significant urine retention. Vitals in the ER were temperature 36.5?, pulse 72, respiratory rate 20, blood pressure 164/96, pulse ox 99 on room air. Vitals in the ER were white blood cell count 9.1, hemoglobin 11.5, hematocrit 34.6, platelets 334. BMP showed acute kidney injury with a creatinine at 3.3 and a BUN of 36. Abdominal CT showed severely distended bladder, severe right hydronephrosis, atrophic left kidney, and cardiomegaly with small pericardial effusion. Patient was admitted to the hospital service and of Hammer catheter was placed. She had rapid decompression which cause some hematuria. She was seen by Urology who flush the catheter and this improved. Her creatinine improved with the catheter placement and was 1.6 at discharge. I suspect this will continue to improve and she will need a BMP in 1 week. The results will be sent to Dr. Castanon who agreed to follow this. I also held some medications as stated above. I also stopped her
== END 2020-09-01 11:55 | disposition home or self-care (01) | DRG 690 ==
LOC: ANHED 08-29 01:13 → ANH3MED 08-29 01:21
PROVIDERS: Emergency Medicine; Internal Medicine; Physician Assistant; Admitting Provider Internal Medicine; Emergency Provider Emergency Medicine; Visit Provider Family Medicine
DX: N30.81 Other cystitis with hematuria (principal); Q60.0 Renal agenesis, unilateral; N13.30 Unspecified hydronephrosis; N17.9 Acute kidney failure, unspecified; Z98.84 Bariatric surgery status; I69.320 Aphasia following cerebral infarction; I12.9 Hypertensive chronic kidney disease with stage 1 through stage 4 chronic kidney disease, or unspecified chronic kidney disease; N18.9 Chronic kidney disease, unspecified
CPT/HCPCS: 36415; 74176; 76775; 80048; 80053; 80076; 81001; 83605; 83690; 83735; 84100; 85014; 85018; 85025; 85027; 87086; 92507; 92523; 96361; 96365; 96375; 96376; 97161; 97165; 99285; A9270; G0378; J0696; J1170; J2405; J7030; J7120

== ENCOUNTER 2020-09-01 13:26 | Emergency (ER) | payer MEDICARE, OTHER, SELFPAY ==
[2020-09-01 13:58] VITALS: BP 137/86; PULSE 75; RESP 20; TEMP 36.2; O2SAT 100
--- NOTE | 2020-09-01 16:12 | ED.GENADULT ---
HPI - General Adult General Chief complaint: Unspecified Stated complaint: GROIN PAIN Time Seen by Provider: 09/01/20 15:02 Source: patient and family Mode of arrival: wheelchair Limitations: other (History of expressive aphasia after recent stroke) History of Present Illness HPI narrative: This is a 80 year old female that presents to the ER for rectal pain since this afternoon. Patient with history of recent stroke and expressive aphasia. History given by her daughter and her boyfriend. Reports she was just released from the hospital today with a urinary catheter after having urinary retention. She had a bowel movement at home and since has been complaining of rectal pain. Is afebrile here. Denies any abdominal pain. Related Data Home Medications Medication Instructions Recorded Confirmed ascorbic acid (vitamin C) 500 mg 500 mg PO DAILY 11/05/19 08/29/20 capsule calcium citrate 315 mg-vitamin D3 1 tablet PO TID 11/05/19 08/29/20 5 mcg (200 unit) tablet cholecalciferol (vitamin D3) 10 10 mcg PO DAILY 11/05/19 08/29/20 mcg (400 unit) capsule mecobalamin (vitamin B12) 1,000 1,000 mcg SUBLINGUAL DAILY 11/05/19 08/29/20 mcg disintegrating tablet,sublingual misoprostol 200 mcg tablet 200 mcg PO QAM AND QHS 11/05/19 08/29/20 multivit with min-folic 1 tablet PO DAILY 11/05/19 08/29/20 acid-lutein 400 mcg-250 mcg chewable tablet omega 5-[id number]-mab-fish oil 1,200 mg 1 cap PO DAILY 11/05/19 08/29/20 (144 mg-216 mg) capsule vitamin B complex 1 tablet PO DAILY 11/05/19 08/29/20 vitamin E (dl, acetate) 90 mg (200 200 unit PO DAILY 11/05/19 08/29/20 unit) capsule Effer-K 20 meq PO BID 08/29/20 08/29/20 atorvastatin 80 mg PO DAILY 08/29/20 08/29/20 carvedilol 25 mg PO BID 08/29/20 08/29/20 chlorthalidone 25 mg DAILY 08/29/20 08/29/20 clopidogrel 75 mg PO DAILY 08/29/20 08/29/20 losartan 100 mg PO DAILY 08/29/20 08/29/20 pantoprazole 40 mg PO DAILY 08/29/20 08/29/20 Allergies Allergy/AdvReac Type Severity Reaction Status Date / Time naproxen Allergy Severe cardiac Verified 09/01/20 15:49 arrest NSAIDS (Non-Steroidal Allergy Severe cardiac Verified 09/01/20 15:49 Anti-Inflamma arrest morphine Allergy Mild unknown Verified 09/01/20 15:49 Review of Systems Review of Systems: Narrative: CONSTITUTIONAL: Denies fever GASTROINTESTINAL: Denies abdominal pain, nausea, vomiting All systems reviewed & are unremarkable except as noted in HPI and below PMFSH Past Medical History Medical History (Updated 09/01/20 @ 16:20 by Hilaria Patterson, PAJaidenC) Atrophy of left kidney Expressive aphasia History of gastroscopy 08/18/09, 09/09/09, with structure Hypertension Iron (Fe) deficiency anemia Ischemic cerebrovascular accident (CVA) (08/14/20) Treated with tPA and thrombectomy Vaginal delivery 1960, , full term, female, 7#10 1969, , full term, female, 7#10 Surgical History Surgical History H/O rectal polypectomy 11/13/08, 08/27/03 H/O right heart catheterization 12/17/08 unsure if lt or rt History of breast biopsy 06/09/10, stereotactic, biopsy rt breast History of cholecystectomy 05/09/09 History of endoscopy 12/16/09, 02/10/10, 08/25/10, 04/26/18 History of esophagogastroduodenoscopy (EGD) 04/25/12, with upper GI History of eye surgery 11/05/14 cataract right eye, 11/20/14 cataract left eye, 07/28/18 bilateral removal of scar tissue 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
[2020-09-01 16:25] VITALS: BP 138/75; PULSE 75; RESP 18; O2SAT 100
[2020-09-01] MEDS: ACETAMINOPHEN 500 MG TABLET 1000 MG PO (16:38)
== END 2020-09-01 16:39 | disposition home or self-care (01) ==
PROVIDERS: Emergency Provider Emergency Medicine
DX: K64.8 Other hemorrhoids (principal); I69.920 Aphasia following unspecified cerebrovascular disease; N26.1 Atrophy of kidney (terminal); I10 Essential (primary) hypertension; D50.9 Iron deficiency anemia, unspecified; Z87.19 Personal history of other diseases of the digestive system; Z98.42 Cataract extraction status, left eye; Z98.41 Cataract extraction status, right eye; Z96.653 Presence of artificial knee joint, bilateral; Z98.1 Arthrodesis status
CPT/HCPCS: 99283; A9270

== ENCOUNTER → 2020-09-19 10:32 | Outpatient (CLI) | payer MEDICARE, OTHER, SELFPAY ==
--- NOTE | ~2020-09-19 | US_ITS ---
EXAMINATION: US renal BI DATE: 09/19/2020 11:08 INDICATION: Right hydronephrosis TECHNIQUE: Multiple ultrasound grayscale images of the kidneys were obtained. COMPARISON: Ultrasound dated 08/29/[address] dated 08/28/2020. FINDINGS: The right kidney measures 10.6 x 4.0 x 4.8 cm. The left kidney is not visualized likely due to severe atrophy as seen on the prior CT. Borderline increased right renal cortical echogenicity which is iso echoic to the liver. 8 mm anechoic right renal cyst. The prior hydronephrosis of the right kidney has resolved. No stones identified. The bladder is decompressed around a Hammer catheter which limits gloria luation. IMPRESSION: 1. Resolution of prior right hydronephrosis. 2. Borderline increased right renal cortical echogenicity consistent with medical renal disease. 3. Nonvisualized left kidney likely due to severe atrophy as seen on prior CT. Reviewed, dictated and finalized at location A. IMPRESSION: 1. Resolution of prior right hydronephrosis. 2. Borderline increased right renal cortical echogenicity consistent with medic al renal disease. 3. Nonvisualized left kidney likely due to severe atrophy as seen on prior CT.
== END ==
PROVIDERS: PCP Internal Medicine Gastroenterology; Visit Provider Urology
DX: N13.30 Unspecified hydronephrosis (principal); N28.1 Cyst of kidney, acquired
CPT/HCPCS: 76775

== ENCOUNTER → 2020-09-30 11:00 | Outpatient (CLI) | payer MEDICARE, OTHER, SELFPAY ==
--- NOTE | ~2020-09-30 | CT_ITS ---
EXAMINATION: CT abdomen pelvis wo con EXAM DATE: 09/30/2020 11:16 INDICATION: Neurogenic bladder due to old stroke. One kidney from . History gastric bypass with complications. Being evaluated for suprapubic catheter. TECHNIQUE: Spiral CT of the abdomen and pelvis was performed without contrast. Axial, coronal and s agittal images of the abdomen and pelvis were reviewed. The dose-length product (DLP) for this exami nation was 221.90 mGy-cm. The exposure was tailored according to patient size (auto mA exposure cont rol), and iterative reconstruction (ASIR) was used as additional dose reduction technique. Comparison is made to prior examination from 08/28/2020. FINDINGS: The liver, spleen, adrenal glands and pancreas are unremarkable. Gallbladder is unremarkab le. No biliary obstruction. There is 2.5 mm right inferior calyceal nonobstructing stone. No hydron ephrosis. Left kidney not identified. The uterus is not identified and has likely been surgically re sected. There is Hammer catheter within a collapsed bladder. There are multiple loops of small bowel i nterposed between the collapsed bladder and the suprapubic region. The bladder is unremarkable. The re is no retroperitoneal or pelvic lymphadenopathy. There are no findings to suggest appendicitis. There are surgical changes from intact gastric bypass surgery. There is expected amount of colonic stool. There is mild sigmoid colonic diverticulosis. There is no adjacent inflammatory change to suggest diverticulitis. No free intraperitoneal gas. C ardiomegaly with left ventricular enlargement. Left basilar compressive atelectasis. There are no o steoblastic or osteolytic lesions identified. Right iliac bone harvest site. Interbody fusion L3-4 an d L4-5. Posterior fusion L5-S1, with L5 laminectomies. IMPRESSION: 1. Surgical changes. 2. Sigmoid diverticulosis. 3. Small right nephrolithiasis. 4. Left ventricular enlargement. Reviewed, dictated and finalized at location A.
== END ==
PROVIDERS: Visit Provider Urology
DX: I69.398 Other sequelae of cerebral infarction (principal); Z98.890 Other specified postprocedural states; K57.90 Diverticulosis of intestine, part unspecified, without perforation or abscess without bleeding; N20.0 Calculus of kidney; I51.7 Cardiomegaly
CPT/HCPCS: 74176

== ENCOUNTER 2020-10-27 12:30 | Outpatient (RCR) | payer MEDICARE, OTHER, SELFPAY ==
--- NOTE | 2020-08-04 11:46 | OTOPEVAL ---
OCCUPATIONAL THERAPY INITIAL EVALUATION: 08/04/2020 Thank you for referring Nicole Patricia to [facility].? The patient is scheduled to be seen for skilled occupational therapy? 1x/week for 4 weeks. Please review, sign, date and return this plan of care ANY. I agree with and certify that the following plan of care is medically necessary. Referring Physician Date Attending Provider: PHYSICIAN NOT ON STAFF Referring Provider: Stepan Grijalva *OT Outpatient Evaluation Start: 08/04/20 10:37 Freq: Status: Active Protocol: Document 08/04/20 10:35 KJL (Rec: 08/04/20 11:44 KJL [id number]) Therapy Assessment Status Assessment Status Assessment Status Evaluation Outpatient Past Medical History Neurological History Hx Cerebrovascular Accident (CVA) Yes Evaluation Information Problem Diagnosis CVA Additional Evaluation Detail Patient had a CVA July 15, 2020 received TPA at [facility] and has residual R dominant side weakness. Subjective Information Patient has expressive aphagia Query Text:As Reported By Patient/ . per daughter, patient was Family independent prior to CVA living alone, now has difficulty with R UE strength, coordination, decreased independence with cooking tasks Prior Level of Function Activity Level (Last 3 Months) Hand Dominance Right Activity of Daily Living Ability Independent Indoor/Home Mobility Independent Community Mobility Independent Stairs Ability Independent Functional Cognition (Planning, Shopping Independent , Taking Medications) Cooking Yes Cleaning Yes Laundry Yes Shopping Yes Driving Yes Home Setting Home Type House,Multiple Levels Environmental Barriers Stairs, Greater than 4 Living Situation Alone Support Available Local Family Support Mobility Assistive Devices (Used Last 3 None Months) Bathroom Environment Bathtub, Standard,Tub/Shower, Door Bathing Equipment Hand Held Shower Toileting Equipment None Comments Additional Prior Level of Function Prior to CVA patient Comments independent with all ADLs and IADLs, no device for functional mobility Pain Assessment Timing of Pain Assessment Timing of Pain Assessment Assessment Pennie
--- NOTE | 2020-08-04 13:13 | STOPEVAL ---
SPEECH THERAPY INITIAL EVALUATION: Thank you for referring Nicole Patricia to [facility].? The patient is scheduled to be seen for therapy? 2x/week for 4 weeks. Please review, sign, date and return this plan of care ANY. I agree with and certify that the following plan of care is medically necessary. Referring Physician Date Attending Provider: PHYSICIAN NOT ON STAFF Referring Provider: Stepan Grijalva Language Evaluation Auditory Comprehension Body Part Identification (% Accuracy (0- 70 100)) Object Identification (% Accuracy (0-100 33 )) Object/Picture Identification Comments identifying 5 pictures on same page via pointin% accuracy Simple Yes/No Questions (% Accuracy (0- 80 100)) Auditory Comprehension One-Step 50 Directives (% Accuracy (0-100)) Factors Limiting Auditory Comprehension Aphasia Overall Auditory Comprehension Ability mod/severe Additional Auditory Comprehension extremely perseverative and Comments echolalic; usually attempts to repeat question and direction versus answering or following through. Responses are perseverative on I can then an attempt at repeating. Pt appears to have increased level of comprehension in functional interactions versus in formal contexts. Reading Comprehension Name Recognition Yes: field of 3 Numeral Comprehension Comments Pt is unable to correctly identify numbers, letters or shapes; but was able to match a single word from a field of 2 to a picture with 75% accuracy Single Word Comprehension (% Accuracy (0 25 -100)) Comprehension of Functional Reading Severe Deficits Materials Response Latency Moderate Deficits Factors Limiting Reading Comprehension Aphasia Overall Reading Comprehension Ability Severe Deficits Verbal Expression Vowel Imitation (% Accuracy (0-100)) 25 [place] Speech Severe Deficits Automatic Cued Speech (% Accuracy (0-100 80 )) Open Ended Cued Speech (% Accuracy (0- 30 100)) WH Questions (% Accuracy (0-100)) 33 Confrontational Naming (% Accuracy (0- 40 100)) Confrontational Naming Comments very deliberate slow speech; paraphasic errors and jargon. unable to self correct. nonfluent
--- NOTE | 2020-08-11 13:29 | PTOPEVAL ---
PHYSICAL THERAPY EVALUATION/ DISCHARGE 08-11-20 Thank you for referring Nicole Patricia to [facility], s/p CVA. Mrs. Patricia is doing well with her mobility and balance; further PT treatment is not indicated. Therefore, she will be discharged from PT services. Please review, sign, date and return this evaluation/discharge ANY. I agree with and certify that the following plan of care is medically necessary. Referring Physician Date Referring Provider: Stepan Grijalva MD *PT Outpatient Evaluation/Discharge Start: 08/11/20 12:45 Document 08/11/20 12:35 TYRONE (Rec: 08/11/20 13:19 TYRONE [id number]) Outpatient Past Medical History Past Medical History Source of Past Medical History Recalled from Previous Visit, Confirmed with Patient/Family Neurological History Hx Cerebrovascular Accident (CVA) Yes: this admission, due to cardiac arrest/ had TPA Cardiovascular History Hx Hypertension Yes Gastrointestinal History Hx Cholecystectomy Yes Hx Gastric Bypass Surgery Yes Hx Hernia Yes: surgical repair Musculoskeletal History Hx Orthopedic Surgery Yes: B TKR; cervical fusion, lumbar fusion; pin R thumb Evaluation Information Problem Diagnosis s/p CVA Onset 07-15-20 Subjective Information her live in friend stated she Query Text:As Reported By Patient/ is doing well with her Family mobility at home; has not had any falls; is also receiving OT and Speech therapy services; Prior Level of Function Activity Level (Last 3 Months) Occupation works, but not able to state what she did Hand Dominance Right Activity of Daily Living Ability Independent Indoor/Home Mobility Independent Community Mobility Independent Stairs Ability Independent Functional Cognition (Planning, Shopping Independent , Taking Medications) Cooking Yes Cleaning Yes Laundry Yes Shopping Yes Driving Yes Home Setting Home Type House,Multiple Levels Environmental Barriers Stairs, Greater than 4 Living Situation With Friend Support Available Local Family Support Mobility Assistive Devices (Used Last 3 None Months) Bathroom Environment Bathtub, Standard,Tub/Shower, Door Bathing Equipment Hand Held Shower Toileting Equipment None Comments Addition
--- NOTE | 2020-09-02 14:10 | PCOTNOTE ---
Patient's daughter called & cancelled scheduled OT appointment this date due to patient being in the hospital over the weekend.
--- NOTE | 2020-09-02 16:16 | PCSTNOTE ---
Patient called & cancelled scheduled appointment this date due to being in hospital over the weekend and still feeling tired.
--- NOTE | 2020-09-03 14:10 | STOPEVAL ---
SPEECH THERAPY PROGRESS NOTE AND PLAN OF CARE UPDATE: Thank you for referring Nicole Patricia to [facility].? The patient is scheduled to be seen for therapy?3x/week for 4 weeks. Please review, sign, date and return this plan of care ANY. I agree with and certify that the following plan of care is medically necessary. Referring Physician Date Attending Provider: PHYSICIAN NOT ON STAFF Referring Provider: Stepan Grijalva * Outpatient RE Evaluation Language Evaluation: Auditory Comprehension Body Part Identification (% Accuracy (0- 90 100)) Object Identification (% Accuracy (0-100 90 )) Simple Yes/No Questions (% Accuracy (0- 70 100)) Moderate Yes/No Questions (% Accuracy (0 40 -100)) Auditory Comprehension One-Step 60 Directives (% Accuracy (0-100)) Factors Limiting Auditory Comprehension Aphasia,Apraxia Additional Auditory Comprehension Pt had has a recent hospital Comments readmission at reportedly having a bad day this date; overall, pt is progressing in the area of auditory comprehension Reading Comprehension Name Recognition Yes Numeral Comprehension Comments Pt is able to identify numbers from 1-20 from field of 4 with 100% accuracy However, letter identification in a field of 3 is at 38% accuracy. She is able to identify food words with 100% accuracy in a field of 3 but household object words with 25 % accuracy Response Latency Mild Deficits Factors Limiting Reading Comprehension Aphasia,Apraxia Overall Reading Comprehension Ability mod/severe Verbal Expression Vowel Imitation (% Accuracy (0-100)) 100 Automatic Speech Ability Moderate Deficits [place] Speech fluctuates Single Word Imitation (% Accuracy (0-100 100 )) Automatic Cued Speech (% Accuracy (0-100 90 )) Open Ended Cued Speech (% Accuracy (0- 60 100)) WH Questions (% Accuracy (0-100)) 40 Confrontational Naming (% Accuracy (0- 60 100)) Confrontational Naming Comments fluctuates Factors Limiting Verbal Function Aphasia,Apraxia Overall Verbal Expression Ability Moderate Deficits Comments Related to Verbal Expression /wh/ questions re immediate environment and/or self: 75% accuracy Written Expression Ability to Copy able to copy words; Letters to Di
--- NOTE | 2020-09-08 15:27 | PCSTNOTE ---
Patient called & cancelled scheduled appointment this date due to not feeling well and going to see the Dr ]
--- NOTE | 2020-09-10 15:52 | OTOPEVAL ---
OCCUPATIONAL THERAPY DISCHARGE SUMMARY 09/10/20 As described below, OT re-evaluation today shows improved strength and functional coordination of the right UE. No further skilled OT is indicated at this time. Thank you for referring Nicole Patricia to [facility].?Please review, sign, date and return this plan of care ANY. I agree with and certify that the following plan of care is medically necessary. Referring Physician Date Referring Provider: Stepan Grijalva MD *OT Outpatient Evaluation Start: 08/04/20 10:37 Evaluation Information Problem Diagnosis s/p CVA Onset 07-15-20 Additional Evaluation Detail Patient's initial OT evaluation was on 08/04/20. She has participated in 3 treatment sessions. Overall patient has improved to being independent with ADLs and states her strength has returned. Subjective Information Patient reports no Query Text:As Reported By Patient/ difficulties with bathing, Family dressing, and feeding herself. Pain Assessment Timing of Pain Assessment Timing of Pain Assessment Re-assessment Self Report Self Report Pain Level 0 Pain Score Pain Score 0: Self Report Upper Extremity Range of Motion General Upper Extremity Range of Motion Reason Not Measured WNL/Left,WNL/Right Upper Extremity Muscle Strength Testing General Upper Extremity Strength Reason Not Measured WNL/Left,WNL/Right Gross Upper Extremity Strength Comments Bilat UEs are 4+/5. Strength is symmetrical. Hand Scout/Pinch Strength Assessment Hand Right Scout Strength (lbs) 38.66 Lateral Pinch Strength (lbs) 9.33 Palmar Pinch Strength (lbs) 3.66 Hand Scout/Pinch Strength Comments Scout improved from 31 lbs. Lateral improved from 8 lbs. Palmar remained unchanged. 9-Hole Peg Hand Test Hand Right Hand Dominance Right Scoring Time (seconds) 31 Interpretation Within Normal Range Comments Improved by 10 seconds. OT Clinical Summary Clinical Summary Protocol: [facility]TE[facility]ODES OT Clinical Summary Patient presents for OT re- evaluation today. Strength and functional coordination have improved to normal limits and is symmetrical to the left UE. She has returned to being independent with ADLs. She states she feels stronger and is able to use her hands for
--- NOTE | 2020-09-24 14:41 | PCSTNOTE ---
Pt arrived for therapy but prior to being brought back for her session, she reported that she did not feel well and decided to leave.
--- NOTE | 2020-10-02 15:26 | STOPEVAL ---
SPEECH THERAPY PROGRESS NOTE AND PLAN OF CARE UPDATE: Thank you for referring Nicole Patricia to [facility].? Pt continues to exhibit improvement in all areas of language; therefore, continue ST is warranted. The patient is scheduled to be seen for therapy? 3x/week for 4 weeks. Please review, sign, date and return this plan of care ANY. I agree with and certify that the following plan of care is medically necessary. Referring Physician Date Attending Provider: Stepan Grijalva Referring Provider: Stepan Grijalva Language RE Evaluation Auditory Comprehension Moderate Yes/No Questions (% Accuracy (0 60 -100)) Auditory Comprehension One-Step 90 Directives (% Accuracy (0-100)) Additional Auditory Comprehension Pt is exhibiting improved Comments comprehension in conversational speech. Overall mild to moderate deficits remain Reading Comprehension Name Recognition Yes Letter Comprehension (% Accuracy (0-100) 100 ) Single Word Comprehension (% Accuracy (0 100 -100)) Comprehension: 3-4 Words (% Accuracy (0- 83 100)) Comprehension: 5-7 Words (% Accuracy (0- 25 100)) Response Latency Mild Deficits Factors Limiting Reading Comprehension Aphasia Overall Reading Comprehension Ability Moderate Deficits Comments Related to Reading Improvement is exhibited in Comprehension comprehension of phrases and short sentences Verbal Expression Vowel Imitation (% Accuracy (0-100)) 100 Automatic Speech Ability WFL [place] Speech WFL Single Word Imitation (% Accuracy (0-100 100 )) Automatic Cued Speech (% Accuracy (0-100 100 )) Open Ended Cued Speech (% Accuracy (0- 75 100)) WH Questions (% Accuracy (0-100)) 70 Confrontational Naming (% Accuracy (0- 65 100)) Confrontational Naming Comments Common objects Comments Related to Verbal Expression WH ?'s re self: 70-80% accuracy. Written Expression Ability to Copy able to copy words; Letters to Dictation (% Accuracy (0-100) 50 ) Numbers to Dictation (% Accuracy (0-100) 60 ) Single Word Dictation (% Accuracy (0-100 100 )) Written Confrontational Naming 60% accuracy common pictures Phrase Production 20 Functional Writing pt is able to write her first and last name and & age Response Latency Moderate Deficits Factors Limiting Written Function Aphasia,Apraxia Overall Written Expression Ability Moderate Deficits Co
--- NOTE | 2020-10-27 14:18 | PCSTNOTE ---
SPEECH THERAPY 10TH VISIT PROGRESS NOTE: 10th visit Progress Note: Subjective: Pleasant and very cooperative. Pt is very motivated to improve. Summary of Progress: Auditory Comprehension: Pt exhibits improved ability to follow functional conversation; however, ability to follow multi step and complex directions is inconsistent. She is able to respond accurately to complex yes/no questions within functional contexts (not as accurate in structured/out of context questions) with approximately 90% accuracy Reading Comprehension: Pt is able to comprehend 3-4 word (simple) sentence s. she to match 5-7 word sentences to a picture (field of 3) with 82% accuracy. Verbal expression: Pt presents with ability to participate in more slightly more detailed conversational exchanges; pt demonstrates less struggle behaviors, and is increasingly able to formulate sentences. Dysfluency, multi attempts, &/or paraphasic errors are exhibited but has decreased by approximately 40-50%. Written expression: Pt demonstrates ability to write phrases to dictation with 50% accuracy. Recommendations: Pt is being seen by ST 3x/week which will be continued due to progression and goal achievements.
--- NOTE | 2020-10-29 13:03 | PCSTNOTE ---
This treatment is being continued on visit number [id number]. Please see documentation on both accounts to view progress. Completed interventions, outcomes, and problems have been marked as Inactive to facilitate the copying of the Care plan routine for recurring accounts.
== END 2020-10-27 14:02 | disposition home or self-care (01) ==
LOC: ANHST 12:30
PROVIDERS: PCP Obstetrics & Gynecology
DX: I69.320 Aphasia following cerebral infarction (principal)
CPT/HCPCS: 92507; 92523; 97110; 97161; 97165; 97530

== ENCOUNTER 2020-11-18 12:06 | Emergency (ER) | payer MEDICARE, OTHER, SELFPAY ==
[2020-11-18] VITALS (8 sets, daily range): BP systolic 127–183; BP diastolic 69–77; PULSE 58–67; RESP 16–21; TEMP 36.3–37.1; O2SAT 94–100
--- NOTE | ~2020-11-18 | XR_ITS ---
EXAMINATION: XR chest 2V DATE: 11/18/2020 12:26 INDICATION: Dyspnea on exertion. TECHNIQUE: Frontal and lateral views of the chest were obtained. COMPARISON: CT abdomen and pelvis 09/22/2020 FINDINGS: There is no pneumonia, pleural effusion, or pneumothorax. Cardiomegaly is present. There is an electronic implant in left anterior chest wall. There are surgical clips in the abdomen. IMPRESSION: 1. Cardiomegaly. Reviewed, dictated and finalized at location B. IMPRESSION: 1. Cardiomegaly.
--- NOTE | 2020-11-18 12:14 | ECG_ITS ---
Measurements Intervals [place] Rate: 60 P: 55 WA: 158 QRS: 26 QRSD: 90 T: 53 QT: 430 QTc: 431 Interpretive Statements SINUS RHYTHM BORDERLINE ST-T WAVE ABNORMALITY- HIGH LATERAL LEADS BASELINE ARTIFACT- I, II, III, AVR, AVL, AVF BORDERLINE ECG Electronically Signed On 11-18-2020 12:52:07 CDT by Cristian Joya D.O.
[2020-11-18 13:11] LABS: Basophils Absolute Auto 0.1 K/mm3 (0.0-0.1); Eosinophils Absolute Auto 0.1 K/mm3 (0-0.3); Eosinophils Percent Auto 1.2 % (0-4.4); Hematocrit 26.3 % (37.0-47.0); Hemoglobin 8.5 g/dL (12.0-15.0); Immature Granulocyte Absolute 0.01 K/mm3 (0.00-0.031); Immature Granulocyte Percent A 0.2 % (0-0.5); Lymphocytes Absolute Auto 1.29 K/mm3 (0.9-3.2); Lymphocytes Percent Auto 25.1 % (18.3-44.2); Mean Corpuscular HGB Conc 32.3 g/dl (32-36); Mean Corpuscular Hemoglobin 31.5 pg (26-34); Mean Corpuscular Volume 97.4 fl (80-100); Mean Platelet Volume 10.5 fl (7.4-10.4); Monocytes Absolute Auto 0.4 K/mm3 (0.1-0.6); Monocytes Percent Auto 8.4 % (2.6-8.5); Neutrophils Absolute Auto 3.3 K/mm3 (1.3-6.7); Neutrophils Percent Auto 64.1 % (45.5-73.1); Platelet Count Result 272 k/mm3 (150-375); Red Cell Distribution Width 12.8 % (11.5-14.5); White Blood Count 5.1 K/mm3 (4.5-10.0)
[2020-11-18 13:22] LABS: Anion Gap 4 mmol/L (8-16); Blood Urea Nitrogen 19 mg/dL (7-17); Calcium 9.2 mg/dL (8.4-10.2); Carbon Dioxide 26 mmol/L (22-30); Chloride 105 mmol/L (98-107); Estimated CRCL calculation 23 ml/min; Estimated Glomerular Filt Rate 36; Glucose 104 mg/dL (65-110); Potassium 4.3 mmol/L (3.4-5.0); Sodium 135 mmol/L (137-145)
--- NOTE | 2020-11-18 15:09 | ED.SOB ---
HPI - SOB/Dyspnea General Chief Complaint: Shortness of Breath/Dyspnea Stated Complaint: SOB x 1 Month Time Seen by Provider: 11/18/20 15:03 History of Present Illness HPI Narrative: 80 yo female w/ h/o CVA presents to the ED c/o a breathing attack. She reportedly has frequent episodes of shortness of breath. These are worsened with exertion and heat. During these she will point to her mouth and throat. She also reports some epigastric discomfort. History limited by aphasia. Related Data Home Medications Medication Instructions Recorded Confirmed ascorbic acid (vitamin C) 500 mg 500 mg PO DAILY 11/05/19 08/29/20 capsule calcium citrate 315 mg-vitamin D3 1 tablet PO TID 11/05/19 08/29/20 5 mcg (200 unit) tablet cholecalciferol (vitamin D3) 10 10 mcg PO DAILY 11/05/19 08/29/20 mcg (400 unit) capsule mecobalamin (vitamin B12) 1,000 1,000 mcg SUBLINGUAL DAILY 11/05/19 08/29/20 mcg disintegrating tablet,sublingual misoprostol 200 mcg tablet 200 mcg PO QAM AND QHS 11/05/19 08/29/20 multivit with min-folic 1 tablet PO DAILY 11/05/19 08/29/20 acid-lutein 400 mcg-250 mcg chewable tablet omega 3-htk-skj-fish oil 1,200 mg 1 cap PO DAILY 11/05/19 08/29/20 (144 mg-216 mg) capsule vitamin B complex 1 tablet PO DAILY 11/05/19 08/29/20 vitamin E (dl, acetate) 90 mg (200 200 unit PO DAILY 11/05/19 08/29/20 unit) capsule Effer-K 20 meq PO BID 08/29/20 08/29/20 atorvastatin 80 mg PO DAILY 08/29/20 08/29/20 carvedilol 25 mg PO BID 08/29/20 08/29/20 chlorthalidone 25 mg DAILY 08/29/20 08/29/20 clopidogrel 75 mg PO DAILY 08/29/20 08/29/20 losartan 100 mg PO DAILY 08/29/20 08/29/20 pantoprazole 40 mg PO DAILY 08/29/20 08/29/20 Allergies Allergy/AdvReac Type Severity Reaction Status Date / Time naproxen Allergy Severe cardiac Verified 09/01/20 15:49 arrest NSAIDS (Non-Steroidal Allergy Severe cardiac Verified 09/01/20 15:49 Anti-Inflamma arrest morphine Allergy Mild unknown Verified 09/01/20 15:49 Review of Systems Review of Systems: All systems reviewed & are unremarkable except as noted in HPI and below Constitutional: Constitutional: Denies fever(s) Cardiovascular: Cardiovascular: Denies chest pain Respiratory: Respiratory: Reports dyspnea Gastrointestinal: Gastrointestinal: Reports abdominal pain, Denies nausea and Denies vomiting Genitourinary: Genitourinary: Reports no additional female genitourinary complaints Neurologic: Denies weakness [facility] Past Medical History Medical History Atrophy of left kidney Expressive aphasia History of gastroscopy 08/18/09, 09/09/09, with structure Hypertension Iron (Fe) deficiency anemia Ischemic cerebrovascular accident (CVA) (08/14/20) Treated with tPA and thrombectomy Vaginal delivery 196, , full term, female, 7#10 1969, , full term, female, 7#10 Surgical History Surgical History H/O rectal polypectomy 11/13/08, 08/27/03 H/O right heart catheterization 12/17/08 unsure if lt or rt History of breast biopsy 06/09/10, stereotactic, biopsy rt breast History of cholecystectomy 05/09/09 History of endoscopy 12/16/09, 02/10/10, 08/25/10, 04/26/18 History of esophagogastroduodenoscopy (EGD) 04/25/12, with upper GI History of eye surgery 11/05/14 cataract right eye, 11/20/14 cataract left eye, 07/28/18 bilateral removal of scar tissue 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
--- NOTE | 2020-11-18 15:50 | PC.NURSE ---
Talked to Korin in lab-15:50 to add PT INR PTT and Trop I baseline
[2020-11-18 16:13] LABS: Prothrombin Time 13.1 Seconds (11.1-14.7)
[2020-11-18 16:14] LABS: Partial Thromboplastin Time 28.3 SECONDS (22.3-36.8)
[2020-11-18 16:30] LABS: Troponin I < 0.012 ng/mL (0.000-0.034)
--- NOTE | 2020-11-18 16:51 | PC.NURSE ---
SpO2 walking test completed, remained >96% for entire walk. Denies shortness of breath.
== END 2020-11-18 17:05 | disposition home or self-care (01) ==
PROVIDERS: Emergency Medicine; Emergency Provider Emergency Medicine
DX: D64.9 Anemia, unspecified (principal); R06.02 Shortness of breath; I10 Essential (primary) hypertension
CPT/HCPCS: 36415; 71046; 80048; 84484; 85025; 85610; 85730; 93005; 99284

== ENCOUNTER 2020-12-05 08:39 | Outpatient (CLI) | payer MEDICARE, OTHER, SELFPAY ==
--- NOTE | ~2020-12-05 | MM_ITS ---
EXAMINATION: MM screening [place] [facility] w christofer HISTORY: Screening TECHNIQUE: Craniocaudal and mediolateral oblique 3-D tomosynthesis images were obtained and synthetic 2-D images were generated. CAD analysis was submitted and interpreted. COMPARISON: Comparison to multiple prior studies sequentially, with oldest reviewed study dated 02/02. BREAST PARENCHYMAL COMPOSITION: The breasts are extremely dense, which lowers the sensitivity of mamm ography FINDINGS: There is no evidence of suspicious mass, calcification, or architectural distortion to sugg est malignancy in either breast. There has been no suspicious interval change. IMPRESSION: 1. No mammographic evidence of malignancy. 2. Recommend routine screening mammography in one year. BI-RADS Category 2: Benign finding(s). Reviewed, dictated and finalized at location A.
== END 2020-12-05 08:40 | disposition home or self-care (01) ==
LOC: ANHIMG 08:41
PROVIDERS: PCP Internal Medicine Gastroenterology; Visit Provider Internal Medicine Gastroenterology
DX: Z12.31 Encounter for screening mammogram for malignant neoplasm of breast (principal)
CPT/HCPCS: 77063; 77067

== ENCOUNTER 2021-01-04 09:47 | Emergency (ER) | payer MEDICARE, OTHER, SELFPAY ==
[2021-01-04 09:51] VITALS: BP 152/84; PULSE 67; RESP 16; TEMP 36.7; O2SAT 100
--- NOTE | 2021-01-04 10:03 | PC.NURSE ---
pt seen ambulating in waiting room with wheeled walker to snack machine.
--- NOTE | 2021-01-04 11:25 | PC.NURSE ---
pt amb to desk stating she is going to leave.
== END 2021-01-04 12:54 | disposition left against medical advice (07) ==
LOC: ANHED 12:54
PROVIDERS: PCP Internal Medicine Gastroenterology
DX: M25.552 Pain in left hip (principal)
CPT/HCPCS: 99199

== ENCOUNTER 2021-01-15 14:36 | Outpatient (CLI) | payer MEDICARE, OTHER, SELFPAY ==
[2021-01-15 14:57] LABS: Basophils Absolute Auto 0.1 K/mm3 (0.0-0.1); Basophils Percent Auto 1.1 % (0.2-1.2); Eosinophils Absolute Auto 0.1 K/mm3 (0-0.3); Eosinophils Percent Auto 0.9 % (0-4.4); Hematocrit 37.8 % (37.0-47.0); Hemoglobin 12.5 g/dL (12.0-15.0); Immature Granulocyte Absolute 0.01 K/mm3 (0.00-0.031); Immature Granulocyte Percent A 0.2 % (0-0.5); Lymphocytes Absolute Auto 1.36 K/mm3 (0.9-3.2); Lymphocytes Percent Auto 21.3 % (18.3-44.2); Mean Corpuscular HGB Conc 33.1 g/dl (32-36); Mean Corpuscular Hemoglobin 31.6 pg (26-34); Mean Corpuscular Volume 95.5 fl (80-100); Mean Platelet Volume 10.5 fl (7.4-10.4); Monocytes Absolute Auto 0.5 K/mm3 (0.1-0.6); Monocytes Percent Auto 7.7 % (2.6-8.5); Neutrophils Absolute Auto 4.4 K/mm3 (1.3-6.7); Neutrophils Percent Auto 68.8 % (45.5-73.1); Platelet Count Result 225 k/mm3 (150-375); Red Blood Count 3.96 M/mm3 (4.2-5.4); Red Cell Distribution Width 11.9 % (11.5-14.5); White Blood Count 6.4 K/mm3 (4.5-10.0)
== END 2021-01-15 14:37 | disposition home or self-care (01) ==
LOC: ANHLAB 14:42
PROVIDERS: PCP Internal Medicine Gastroenterology; Visit Provider Internal Medicine Pulmonary Disease
DX: D64.9 Anemia, unspecified (principal); N17.9 Acute kidney failure, unspecified
CPT/HCPCS: 36415; 85025

== ENCOUNTER 2021-01-20 13:00 | Outpatient (RCR) | payer MEDICARE, OTHER, SELFPAY ==
--- NOTE | 2020-10-29 13:18 | PCSTNOTE ---
The treatment documented on this account is a continuation of the treatment documented on visit number [id number]. Please see documentation on both accounts to view progress. The Plan of Care has been transitioned and updated within the new V#. I have addressed and agree with the discipline specific Problems, Interventions, and Goals for the current certification period. Completed interventions, outcomes, and problems have been marked as Inactive to facilitate the copying of the Care plan routine for recurring accounts.
--- NOTE | 2020-10-29 13:36 | PCSTNOTE ---
COPY of most recent 10th visit note: Nicole Patricia Female : 1940 Emr# [id number] 10/27/20 14:18 - Speech Therapy Note by PENG Peres Previous Acct Num: [id number] Patient Age: 80 SPEECH THERAPY 10TH VISIT PROGRESS NOTE: 10th visit Progress Note: Subjective: Pleasant and very cooperative. Pt is very motivated to improve. Summary of Progress: Auditory Comprehension: Pt exhibits improved ability to follow functional conversation; however, ability to follow multi step and complex directions is inconsistent. She is able to respond accurately to complex yes/no questions within functional contexts (not as accurate in structured/out of context questions) with approximately 90% accuracy Reading Comprehension: Pt is able to comprehend 3-4 word (simple) sentence s. she to match 5-7 word sentences to a picture (field of 3) with 82% accuracy. Verbal expression: Pt presents with ability to participate in more slightly more detailed conversational exchanges; pt demonstrates less struggle behaviors, and is increasingly able to formulate sentences. Dysfluency, multi attempts, &/or paraphasic errors are exhibited but has decreased by approximately 40-50%. Written expression: Pt demonstrates ability to write phrases to dictation with 50% accuracy. Recommendations: Pt is being seen by ST 3x/week which will be continued due to progression and goal achievements. Initialized on 10/27/20 14:18 - END OF NOTE
--- NOTE | 2020-10-29 13:37 | PCSTNOTE ---
COPIED FROM PREVIOUS ACCOUNT: Nicole Patricia Female : 1940 Emr# [id number] 10/02/20 15:26 - ST OP Evaluation by Sherrie Loyd, PROCESS CONTROL SPECIALIST Acct Num: [id number] : 1940 Patient Age: 80 SPEECH THERAPY PROGRESS NOTE AND PLAN OF CARE UPDATE: Thank you for referring Nicole Patricia to [facility].? Pt continues to exhibit improvement in all areas of language; therefore, continue ST is warranted. The patient is scheduled to be seen for therapy? 3x/week for 4 weeks. Please review, sign, date and return this plan of care ANY. I agree with and certify that the following plan of care is medically necessary. Referring Physician Date Attending Provider: Stepan Grijalva Referring Provider: Stepan Grijalva Language RE Evaluation Auditory Comprehension Moderate Yes/No Questions (% Accuracy (0 60 -100)) Auditory Comprehension One-Step 90 Directives (% Accuracy (0-100)) Additional Auditory Comprehension Pt is exhibiting improved Comments comprehension in conversational speech. Overall mild to moderate deficits remain Reading Comprehension Name Recognition Yes Letter Comprehension (% Accuracy (0-100) 100 ) Single Word Comprehension (% Accuracy (0 100 -100)) Comprehension: 3-4 Words (% Accuracy (0- 83 100)) Comprehension: 5-7 Words (% Accuracy (0- 25 100)) Response Latency Mild Deficits Factors Limiting Reading Comprehension Aphasia Overall Reading Comprehension Ability Moderate Deficits Comments Related to Reading Improvement is exhibited in Comprehension comprehension of phrases and short sentences Verbal Expression Vowel Imitation (% Accuracy (0-100)) 100 Automatic Speech Ability WFL [place] Speech WFL Single Word Imitation (% Accuracy (0-100 100 )) Automatic Cued Speech (% Accuracy (0-100 100 )) Open Ended Cued Speech (% Accuracy (0- 75 100)) WH Questions (% Accuracy (0-100)) 70 Confrontational Naming (% Accuracy (0- 65 100)) Confrontational Naming Comments Common objects Comments Related to Verbal Expression WH ?'s re self: 70-80% accuracy. Written Expression Ability to Copy able to copy words; Letters to Dictation (% Accuracy (0-100) 50 ) Numbers to Dictation (% Accuracy (0-100) 60 ) Single Word Dictation (% Accuracy (0-100 100 )) Written Confrontational Naming 60% accuracy common pictures Phrase Production 20 Functional Writing pt is able to write her first and last name and
--- NOTE | 2020-11-01 12:46 | STOPEVAL ---
SPEECH THERAPY PROGRESS NOTE AND PLAN OF CARE UPDATE: Thank you for referring Nicole Patricia to [facility].? The patient is scheduled to be seen for therapy?3x/week for 4 weeks. Please review, sign, date and return this plan of care ANY. I agree with and certify that the following plan of care is medically necessary. Referring Physician Date Attending Provider: Stepan Grijalva Referring Provider: Stepan Grijalva Language RE Evaluation Auditory Comprehension Moderate Yes/No Questions (% Accuracy (0 100 -100)) Complex Yes/No Questions (% Accuracy (0- 40 100)) Auditory Comprehension of Two-Step 100 Directives (% Accuracy (0-100)) Auditory Comprehension of Three-Step 25 Directives (% Accuracy (0-100)) Factors Limiting Auditory Comprehension Aphasia Overall Auditory Comprehension Ability Mild Deficits Additional Auditory Comprehension Pt is able to accurately Comments respond to yes/no questions up to a comparative question level then accuracy decreased to 60% accuracy. Pt accurately comprehends conversations >80% of the time with only need for occasional repetitions, explanation or elaboration. Reading Comprehension Name Recognition Yes Comprehension: 5-7 Words (% Accuracy (0- 82 100)) Comprehension of Functional Reading Moderate Deficits Materials Response Latency Mild Deficits Factors Limiting Reading Comprehension Aphasia Overall Reading Comprehension Ability Mild/Mod Comments Related to Reading reading comparative yes/no Comprehension questions: (5-7- words): 73% Verbal Expression Open Ended Cued Speech (% Accuracy (0- 90 100)) WH Questions (% Accuracy (0-100)) 90 Confrontational Naming (% Accuracy (0- 90 100)) Factors Limiting Verbal Function Aphasia,Apraxia Comments Related to Verbal Expression Verbal expression has improved extensively as she now demonstrates ability to respond to simple questions. Pt continues to demonstrate mild impairment upon attempts to elaborate and explain, etc. Written Expression Single Word Dictation (% Accuracy (0-100 100 )) Phrase Production writing answers to written questions with stimulus: 94% Functional Writing pt is able to write her first and last name and & age; pt is also
--- NOTE | 2020-11-05 13:15 | PCSTNOTE ---
Patient came in for session; however, left prior to treatment due to not feeling well; scheduled appointment was cancelled this date.
--- NOTE | 2020-11-18 14:09 | PCSTNOTE ---
Patient called & cancelled scheduled appointment this date due to as she is in the ED
--- NOTE | 2020-11-25 16:00 | PCSTNOTE ---
SPEECH THERAPY 10TH VISIT PROGRESS NOTE: 10th visit Progress Note: Subjective: Pleasant and very cooperative. Pt is very motivated to improve. Summary of Progress: Auditory Comprehension: Pt exhibits improved ability to follow functional conversation; ability to follow multi step and complex directions is becoming more consistent. She is able to respond accurately to complex yes/no questions within functional contexts as well as with novel information with 90% accuracy & follows multi step directives with up to 87% accuracy. Pt continues to require repetitions at times for comprehension. Reading Comprehension: Pt is able to comprehend 6-7 word instructions using objects with 80% accuracy. Verbal expression: Pt presents with ability to participate in more detailed conversational exchanges; pt demonstrates less struggle behaviors, and is increasingly able to formulate sentences. Dysfluency, multi attempts, &/or paraphasic errors are exhibited but has decreased by approximately 50%. Written expression: Pt demonstrates ability to write phrases to dictation with 50% accuracy. Recommendations: Pt is being seen by ST 3x/week. Due to significant progression and goal achievements; ST may be reduced to 2x/week.
--- NOTE | 2020-12-01 08:33 | STOPEVAL ---
SPEECH THERAPY REEVALUATION AND PLAN OF CARE UPDATE: Thank you for referring Nicole Patricia to [facility].? The patient is scheduled to be seen for therapy? 2x/week for 4 weeks. Please review, sign, date and return this plan of care ANY. I agree with and certify that the following plan of care is medically necessary. Referring Physician Date Attending Provider: Stepan Grijalva Referring Provider: Stepan Grijalva Language Reevaluation Auditory Comprehension Complex Yes/No Questions (% Accuracy (0- 80 100)) Auditory Comprehension of Three-Step 50 Directives (% Accuracy (0-100)) Overall Auditory Comprehension Ability Mild Deficits Additional Auditory Comprehension During this re assessment, the Comments pt demonstrates improved auditory comprehension as she is able to comprehend information of increasing complexity and length. Reading Comprehension Comprehension: 5-7 Words (% Accuracy (0- 100 100)) Comprehension: 8-10 Words (% Accuracy (0 50 -100)) Comprehension of Complex Statements (% 50 Accuracy (0-100)) Comprehension of Simple Paragraphs (% 100 Accuracy (0-100)) Comprehension of Moderate Paragraphs (% 50 Accuracy (0-100)) Reading Comprehension Comments During this re assessment, the pt demonstrates improved reading comprehension as she is able to comprehend information of increasing complexity and length. Response Latency Mild Deficits Factors Limiting Reading Comprehension Aphasia Overall Reading Comprehension Ability Mild Deficits Verbal Expression Sentence Formation in Spontaneous Mild Deficits Conversation Connected Speech Mild Deficits Factors Limiting Verbal Function Aphasia,Apraxia Overall Verbal Expression Ability Mild Deficits Comments Related to Verbal Expression Pt demonstrates improved verbal expression; verbal struggle has decreased.Pt is able to fluently and intelligibly formulate sentences given a word with an MLU of 5.6. Initiation during reading tasks has improved as well. Written Expression Overall Written Expression Ability Moderate Deficits Comments Related to Written Expression writing to dictation phrases: 43% accuracy. Written expression ability remains moderately impaired. Speech Therapy Teaching
--- NOTE | 2020-12-23 15:12 | PCSTNOTE ---
Patient did not show up for scheduled appointment this date. Her daughter was notified; appointment was rescheduled for tomorrow.
--- NOTE | 2020-12-24 16:07 | PCSTNOTE ---
Patient called & cancelled scheduled appointment this date due to feeling ill.
--- NOTE | 2020-12-25 14:22 | STOPEVAL ---
SPEECH THERAPY RE EVALUATION AND PLAN OF CARE UPDATE: Thank you for referring Nicole Patricia to [facility].? The patient is scheduled to be seen for continuation of speech therapy? 2x/week for 4 weeks. Please review, sign, date and return this plan of care ANY. I agree with and certify that the following plan of care is medically necessary. Referring Physician Date Attending Provider: Stepan Grijalva Referring Provider: Stepan Grijalva Language RE-Evaluation Auditory Comprehension Auditory Comprehension of Simple 90 Paragraphs (% Accuracy (0-100)) Auditory Comprehension of Moderate 60 Paragraphs (% Accuracy (0-100)) Response Latency min/mild Additional Auditory Comprehension pt occasionally requires Comments rephrasing and extra time. Reading Comprehension Comprehension: 8-10 Words (% Accuracy (0 60 -100)) Comprehension of Simple Paragraphs (% 100 Accuracy (0-100)) Comprehension of Moderate Paragraphs (% 100 Accuracy (0-100)) Overall Reading Comprehension Ability min/mild Verbal Expression Sentence Formation in Spontaneous Mild Deficits Conversation Connected Speech Mild Deficits Response Latency Mild Deficits Factors Limiting Verbal Function Aphasia,Apraxia Overall Verbal Expression Ability mild Comments Related to Verbal Expression Pt demonstrates improvement in the area of verbal expression ; verbal struggle has decreased to minimal occurrences in therapy tasks. Pt is able to fluently and intelligibly formulate sentences given a word with an MLU of 6.1. Initiation during reading tasks has improved as well. Pt has achieved STGs for verbal expression. Written Expression Phrase Production sentence completions: 57% Functional Writing Pt is able write her first and last name, address, and phone #. Exhibits word recall difficulty in writing phrases and sentences Factors Limiting Written Function Aphasia Overall Written Expression Ability mild/mod Speech Therapy Teaching Speech Therapy Teaching Teaching Topic Swallowing/Communication Topic Component Aphasia,Apraxia As Pertains To Intervention Options,Test Results Recipient(s) of Teaching Patient Learning Preferences Demonstration,Discussion,One- on-One Instruction Barriers to Learning None
--- NOTE | 2021-01-20 15:27 | STOPEVAL ---
SPEECH THERAPY DISCHARGE: Thank you for referring Nicole Patricia to [facility].? Pt completed 54 speech therapy sessions and exhibited significant progress overall; she will be discharged at this time at her request. Refer to roslyn for specifics of Nicole' progress. Please review, sign, date and return this discharge ANY. I agree with and certify that the following plan of care is medically necessary. Referring Physician Date Attending Provider: Stepan Grijalva Referring Provider: Stepan Grijalva Language ReEvaluation Auditory Comprehension Auditory Comprehension of Moderate 88 Paragraphs (% Accuracy (0-100)) Auditory Comprehension of Complex 85 Paragraphs (% Accuracy (0-100)) Additional Auditory Comprehension Overall, auditory Comments comprehension is within functional limits for short stories and discourse. Breakdown occurs with complex instructions. Reading Comprehension Comprehension of Complex Paragraphs (% 100 Accuracy (0-100)) Reading Comprehension Comments Pt demonstrates ability to comprehend paragraphs and stories, however, with complex directions, pt exhibits significant impairment. Apraxia Evaluation Apraxia Evaluation Conversational Speech Characteristics Visible/Audible Searching Apraxia Evaluation Comments - pt fluently responds with intelligible short sentences in response to questions with 80% accuracy - pt fluently produces sentences given a word with a MLU greater that 6.5. - pt fluently produces intelligible speech while reading moderate length paragraphs with 90%+ accuracy Speech Therapy Teaching Speech Therapy Teaching Teaching Topic Swallowing/Communication Topic Component Aphasia,Apraxia As Pertains To Auditory Comprehension, Compensatory Strategies, Intervention Options,Reading Comprehension,Test Results, Verbal Expression,Written Expression Recipient(s) of Teaching Patient Learning Preferences Discussion,One-on-One Instruction Readiness to Learn Excellent Teaching Method(s) Demonstration,Discussion,One- On-One Instruction Response(s) to Teaching Verbalizes Unde
== END 2021-01-21 08:51 | disposition home or self-care (01) ==
LOC: ANHST 13:00
DX: I69.320 Aphasia following cerebral infarction (principal)
CPT/HCPCS: 92507

== ENCOUNTER 2021-02-13 12:22 | Outpatient (CLI) | payer MEDICARE, OTHER, SELFPAY ==
--- NOTE | 2021-02-13 12:45 | ECHO_ITS ---
Patient Info Name: Nicole Patricia Age: 80 years : 1940 Gender: Female Ht: 60 in Wt: 106 lbs BSA: 1.43 m2 HR: 70 bpm BP: 143 / 89 mmHg Technical Quality: Good Exam Date: 02/13/2021 1:58 PM Exam Location: [facility] Patient Status: Outpatient Admit Date: 02/13/2021 Staff Ordering Physician: Meño Minaya MD Flosser: Neetu Armstrong RDCS Attending Provider: Meño Minaya MD Referring Physician: Rei DURAND; Exam Type: CA echo doppler color flow Study Info Indications - SHORT OF BREATH Complete two-dimensional, color flow and Doppler transthoracic echocardiogram is performed. Summary 1. Complete two-dimensional, color flow and Doppler transthoracic echocardiogram is performed. 2. Left ventricular systolic function is normal, estimated at 55-60%. 3. Left ventricular chamber dimension is normal. 4. There is mildly increased left ventricular wall thickness. 5. The left ventricular diastolic function is grade I diastolic dysfunction. 6. E/e' 9 is minimally elevated. 7. Left atrial chamber dimension is moderately enlarged. 8. Right atrial chamber dimension is mildly enlarged. 9. There is mild aortic valve regurgitation. 10. The mitral valve has mildly calcified annulus. 11. There is mild mitral valve regurgitation. 12. There is mild tricuspid valve regurgitation. 13. No pulmonary hypertension, estimated pulmonary arterial systolic pressure is 27 mmHg. Left Ventricle E/e' 9 is minimally elevated. Left ventricular chamber dimension is normal. Left ventricular systolic function is normal, estimated at 55-60%. There is mildly increased left ventricular wall thickness. The left ventricular diastolic function is grade I diastolic dysfunction. Right Ventricle Right ventricular chamber dimension is normal. Right ventricular systolic function is normal. Left Atria Left atrial chamber dimension is moderately enlarged. Right Atria Right atrial chamber dimension is mildly enlarged. Aortic Valve The aortic valve is trileaflet. There is no aortic valve stenosis. There is mild aortic valve regurgitation. Pulmonic Valve There is no pulmonic regurgitation. Mitral Valve The mitral valve has mildly calcified annulus. There is no mitral valve stenosis. There is mild mitral valve regurgitation. Tricuspid Valve There is mild tricuspid valve regurgitation. No pulmonary hypertension, estimated pulmonary arterial systolic pressure is 27 mmHg. Pericardium/Pleural There is no pericardial effusion. Inferior Vena Cava Normal inferior vena cava with >50% collapse upon inspiration consistent with normal right atrial pressure, 5 mmHg. Aorta The aortic root size at the sinus of Valsalva is normal. Left Ventricular Outflow Tract Name Value Normal LVOT 2D LVOT Diameter 2.0 cm LVOT Doppler LVOT Peak Gradient 4 mmHg LVOT Mean Gradient 2 mmHg LVOT VTI 20 cm LVOT VTI/AV VTI Ratio 0.8 LVOT Stroke Volume 65 ml
--- NOTE | 2021-02-14 12:21 | WPDPFTINT ---
PFT Procedure Performed PFT Procedure Performed Spirometry with Pre/Post Bronchodilator Plethysmography (Lung Vol) Diffusing Cap (DLCO) Flow Vol Loop PFT Interpretation This is a pulmonary function test with pre and post-bronchodilator spirometry, plethysmography and diffusing capacity. The test was performed and results interpreted in accordance with the 2019 and 2005 ATS/ERS Task Force guidelines respectively using the Global Lung Function Initiative-2012 reference equations. Patient demonstrated good effort and cooperation with some difficulty following directions. Reproducibility criteria were met. The quality of the pre bronchodilator spirometry maneuver was Grade B and post bronchodilator spirometry maneuver was Grade A. Findings: Spirometry: the contour the inspiratory and expiratory flow tracing are normal. The pre bronchodilator FVC is 2.42 L, 101% predicted. The pre bronchodilator FEV1 is 1.67 L, 91% predicted. The FEV1: FVC ratio 69%. The post bronchodilator FVC is 2.61 L, representing 8% increase. The post bronchodilator FEV1 is 1.92 L, representing 18% increase. The post bronchodilator FEV1: FVC ratio is 73%. Plethysmography: The total lung capacity is 4.36 L, 92% predicted. The functional residual capacity is 2.44 L, 90% predicted. The residual volume is 1.93 L, 86% predicted. Diffusing capacity: The absolute diffusion capacity is 11.0, 59% predicted. The diffusing capacity corrected for alveolar volume is 2.81, 66% predicted. Impression: The spirometry is normal without evidence of an obstructive abnormality. There is significant improvement after inhaling a single dose of albuterol. The lung volumes are normal. The absolute diffusing capacity is mildly decreased and remains mildly decreased when corrected for alveolar volume. There are no prior studies for comparison
== END 2021-02-13 12:23 | disposition home or self-care (01) ==
PROVIDERS: PCP Internal Medicine Gastroenterology; Visit Provider Internal Medicine Pulmonary Disease
DX: R06.02 Shortness of breath (principal); I35.1 Nonrheumatic aortic (valve) insufficiency; I36.1 Nonrheumatic tricuspid (valve) insufficiency
CPT/HCPCS: 93306; 94060; 94726; 94729

== ENCOUNTER 2021-04-02 11:00 | Outpatient (RCR) | payer SELFPAY ==
[2021-01-20 11:13] VITALS: PULSE 62
== END 2021-04-06 10:41 | disposition home or self-care (01) ==
LOC: ANHCPREHAB 11:00
PROVIDERS: PCP Internal Medicine Gastroenterology
DX: I50.30 Unspecified diastolic (congestive) heart failure (principal)
CPT/HCPCS: 99199

== ENCOUNTER 2021-07-08 13:00 | Outpatient (RCR) | payer MEDICARE, OTHER, SELFPAY ==
--- NOTE | 2021-04-21 14:13 | STOPEVAL ---
SPEECH THERAPY INITIAL EVALUATION: Thank you for referring Nicole Patricia to [facility].? The patient is scheduled to be seen for therapy? 1x/week for 4 weeks. Please review, sign, date and return this plan of care ANY. I agree with and certify that the following plan of care is medically necessary. Referring Physician Date Attending Provider: Maria Del Carmen Gil, Outpatient Past Medical History Neurological History Hx Cerebrovascular Accident (CVA) Yes: 07/15/20, r/t blood clot in brain/had TPA Hx Seizures Yes: last week of March 2021 Cardiovascular History Hx Hypertension Yes Hx Internal Defibrillator Yes: possibly Respiratory History Hx Respiratory Disorders No Significant History Gastrointestinal History Hx Cholecystectomy Yes Hx Gastric Bypass Surgery Yes Hx Gastroesophageal Reflux Disease Yes: 11 esophagus surgeries Hx Hernia Yes: surgical repair Genitourinary History Hx Other Genitourinary Disorders Yes: permanent catheter Musculoskeletal History Hx Arthritis Yes Hx Orthopedic Surgery Yes: B TKR; cervical fusion, lumbar fusion; pin R thumb Hx Rheumatoid Arthritis Yes Hematological History Hx Anemia Yes Endocrine History Hx Endocrine Disorders No Significant History HEENT History Hx Cataracts Yes Hx Dental Problems Yes: dental implants Integumentary History Hx Skin Disorders No Significant History Reproductive History Hx Reproductive Disorders No Significant History Psychosocial History Hx Depression Yes Pain History History of Any Previous or Ongoing No Significant History Instance of Pain Anesthesia History Hx Post-Op Nausea/Vomiting Yes Prior Level of Function Home Setting Home Type House Living Situation With Significant Other Prior Cognition/Communication Prior Communication Level Mild Impairment Prior Ability to Handle Finances Assistance, Family,Assistance, Friend Comments Additional Prior Level of Function pt reports that since being Comments discharged from she was doing well until she suffered a seizure at the end of March,. Pain Assessment Timing of Pain Assessment Timing of Pain Assessment Assessment Self Report Self Report Pain Level 0 Pain Score Pain Score 0: Self Report Language Evaluation Auditory Comprehension Body Part Identification (% Accuracy (0- 100 100)) Object Identification (% Accuracy (0-100 100 )) Simple Yes/No Ques
--- NOTE | 2021-05-22 15:56 | STOPEVAL ---
OUTPATIENT SPEECH THERAPY RE EVALUATION AND PLAN OF CARE UPDATE: Thank you for referring Nicole Patricia to [facility].? The patient is scheduled to be seen for therapy? 1x/week for 4 weeks. Please review, sign, date and return this plan of care ANY. I agree with and certify that the following plan of care is medically necessary. Referring Physician Date Attending Provider: Maria Del Carmen Gil, Language Evaluation Auditory Comprehension Response Latency WFL Overall Auditory Comprehension Ability WFL Additional Auditory Comprehension Required slow speech & Comments repetition with the complex directives. Reading Comprehension Overall Reading Comprehension Ability WFL Verbal Expression Vowel Imitation (% Accuracy (0-100)) 100 Automatic Speech Ability No Impairments [place] Speech No Impairments Single Word Imitation (% Accuracy (0-100 100 )) Phrase Imitation (% Accuracy (0-100)) 100 Sentence Imitation (% Accuracy (0-100)) 91 Automatic Cued Speech (% Accuracy (0-100 100 )) Open Ended Cued Speech (% Accuracy (0- 100 100)) WH Questions (% Accuracy (0-100)) 100 Confrontational Naming (% Accuracy (0- 100 100)) Confrontational Naming Comments higher level namin% accuracy but hesitancy, groping and struggle behaviors were exhibited. Language is intact; Stating Object Function (% Accuracy (0- 100 100)) Sentence Formation Given a Stimulus Word 100 (% Accuracy (0-100)) Sentence Formation in Spontaneous Mild Deficits Conversation Connected Speech Mild Deficits Response Latency Mild Deficits Factors Limiting Verbal Function Apraxia Overall Verbal Expression Ability Mild Deficits Comments Related to Verbal Expression Mild verbal expression deficits are related to apraxia versus anomia or aphasia. Pt's grandson since the evaluation; since then pt's dysfluency and struggle behaviors have increased slightly. Pt has been unable to consistently complete HEP. Written Expression Overall Written Expression Ability WFL Speech Therapy Teaching Speech Therapy Teaching Teaching Topic Swallowing/Communication Topic Component Apraxia As Pertains To Compensatory Strategies,Verbal Expression Recipient(s) of Teaching Patient Learning Preferences Discussion
--- NOTE | 2021-06-18 15:52 | STOPEVAL ---
Speech Therapy Re evaluation and Plan of Care Update: Thank you for referring Nicole Patricia to [facility].? The patient is scheduled to be seen for therapy?1x/week for 4 weeks. Please review, sign, date and return this plan of care ANY. I agree with and certify that the following plan of care is medically necessary. Referring Physician Date Attending Provider: Maria Del Carmen Gil, *ST Outpatient Re Evaluation Apraxia Evaluation Apraxia Evaluation Automatic Speech (%) 100 Imitation of One-Syllable Words (%) 100 Imitation of Bi-Syllable Words (%) 100 Imitation of Multi-Syllable Words (%) 90 Sound Sequencing (%) 100 Imitating Sentences (%) 100 Conversational Speech Characteristics Abnormal Fluency,Difficulty Initiating,Error Awareness, Inconsistent Errors,Numerous Attempts,Perseverative Errors, Transposition Errors,Visible/ Audible Searching Apraxia Evaluation Comments Mild dysfluency in conversational speech; pt requires cueing to accurately utilize compensatory strategies for management of struggle behaviors. Adult Speech Apraxia Intervention Articulation Treatment Activity Syllable Shape Target Discussed & practiced use of compensatory strategies: - use of odalys, - repeating the question to ease into responses Fluency improved by 50% with use of strategies however pt remains reliant on verbal cues in order to use the strategies. At next sessions, ST will teach additional strategies, i.e. gestural/ rhythmic movements (finger or foot tapping) & visualization of the articulatory movements; & decreasing rate Position(s) Targeted Medial Context Conversation Cues Provided Verbal,Visual Clinician Facilitated Improved Accuracy Minimum with the Following Cues Conversational Speech Characteristics Abnormal Fluency,Anticipatory Errors,Difficulty Initiating, Error Awareness,Inability to Correct,Inconsistent Errors, Numerous Attempts,Perseveration Errors,Transposition Errors,
--- NOTE | 2021-07-09 11:47 | STOPEVAL ---
SPEECH THERAPY DISCHARGE: (for your records-no return signature required) Thank you for referring Nicole Patricia to [facility].? Attending Provider: Maria Del Carmen Gil, Language RE Evaluation Auditory Comprehension Complex Yes/No Questions (% Accuracy (0- 100 100)) Auditory Comprehension of Complex 90 Directives (% Accuracy (0-100)) Auditory Comprehension of Complex 100 Paragraphs (% Accuracy (0-100)) Response Latency WFL Overall Auditory Comprehension Ability WFL Reading Comprehension Comprehension of Simple Paragraphs (% 100 Accuracy (0-100)) Comprehension of Complex Paragraphs (% 100 Accuracy (0-100)) Overall Reading Comprehension Ability WFL Verbal Expression WH Questions (% Accuracy (0-100)) 100 Confrontational Naming (% Accuracy (0- 100 100)) Confrontational Naming Comments higher level namin% accuracy but hesitancy, improved overall fluency and motor speech elicited; minimal struggle behaviors were exhibited. Language is intact; Connected Speech WFL Response Latency WFL Overall Verbal Expression Ability WFL Comments Related to Verbal Expression Pt's overall dysfluency and struggle behaviors have improved; pt is able to produce conversational speech with 90%+ fluency. Apraxia RE Evaluation Apraxia Evaluation Oral Volitional Movement (%) 100 Imitation of Single Sounds (%) 100 Automatic Speech (%) 100 Imitation of One-Syllable Words (%) 100 Imitation of Bi-Syllable Words (%) 100 Imitation of Multi-Syllable Words (%) 90 Sound Sequencing (%) 100 Imitating Sentences (%) 100 Conversational Speech Characteristics Error Awareness,Transposition Errors,Visible/Audible Searching Apraxia Evaluation Comments Minimal dysfluency in conversational speech (<10% instance); pt requires minimal cues to utilize compensatory strategies for management of struggle behaviors. Speech Therapy Teaching Speech Therapy Teaching Teaching Topic Swallowing/Communication Topic Component Apraxia As Pertains To Verbal Expression Recipient(s) of Teaching Patient Learning Preferences Demonstration,Discussion,One- on-One Instruction Readiness to Learn Excellent Teaching Method(s) Demonstration,Discussion,One-
== END 2021-07-10 11:34 | disposition home or self-care (01) ==
LOC: ANHST 13:00
PROVIDERS: PCP Internal Medicine Gastroenterology; Visit Provider Internal Medicine Gastroenterology
DX: I69.120 Aphasia following nontraumatic intracerebral hemorrhage (principal)
CPT/HCPCS: 92507; 92523

== ENCOUNTER 2021-09-02 11:52 | Outpatient (CLI) | payer MEDICARE, OTHER, SELFPAY ==
--- NOTE | ~2021-09-02 | XR_ITS ---
XR chest 2V 09/02/2021 10:22 Indication: Shortness of breath Procedure: 2 view chest Comparison: 11/18/2020 Findings: Mild cardiomegaly. No focal air space disease, pulmonary edema, pleural effusion or suspect ed pneumothorax. There is atherosclerosis and ectasia of the thoracic aorta. No acute osseous abnorma lity. There are surgical changes in the left upper abdomen. The lungs are hyperinflated which is cons istent with, but not diagnostic of chronic obstructive pulmonary disease. There is calcified granulom a in the left lower lobe. Impression: 1: No acute cardiopulmonary disease. Reviewed, dictated and finalized at location A. Impression: 1: No acute cardiopulmonary disease.
[2021-09-02 13:33] LABS: Basophils Absolute Auto 0.1 K/mm3 (0.0-0.1); Basophils Percent Auto 1.4 % (0.2-1.2); Eosinophils Absolute Auto 0.1 K/mm3 (0-0.3); Eosinophils Percent Auto 2.3 % (0-4.4); Immature Granulocyte Absolute 0.02 K/mm3 (0.00-0.031); Immature Granulocyte Percent A 0.4 % (0-0.5); Lymphocytes Absolute Auto 1.56 K/mm3 (0.9-3.2); Lymphocytes Percent Auto 27.8 % (18.3-44.2); Mean Corpuscular HGB Conc 33.3 g/dl (32-36); Mean Corpuscular Hemoglobin 31.5 pg (26-34); Mean Corpuscular Volume 94.4 fl (80-100); Mean Platelet Volume 11.2 fl (7.4-10.4); Monocytes Absolute Auto 0.5 K/mm3 (0.1-0.6); Monocytes Percent Auto 8.5 % (2.6-8.5); Neutrophils Absolute Auto 3.4 K/mm3 (1.3-6.7); Neutrophils Percent Auto 59.6 % (45.5-73.1); Platelet Count Result 226 k/mm3 (150-375); Red Blood Count 4.13 M/mm3 (4.2-5.4); Red Cell Distribution Width 11.9 % (11.5-14.5); White Blood Count 5.6 K/mm3 (4.5-10.0)
[2021-09-02 13:43] LABS: Anion Gap 8 mmol/L (8-16); Blood Urea Nitrogen 24 mg/dL (7-17); Calcium 9.4 mg/dL (8.4-10.2); Carbon Dioxide 26 mmol/L (22-30); Chloride 103 mmol/L (98-107); Estimated Glomerular Filt Rate 43; Glucose 92 mg/dL (65-110); Potassium 4.5 mmol/L (3.4-5.0); Sodium 137 mmol/L (137-145)
[2021-09-02 13:51] LABS: NT Pro B Type Natriuretic Pept 754 pg/mL (5-100)
== END 2021-09-02 11:53 | disposition home or self-care (01) ==
PROVIDERS: PCP Internal Medicine Gastroenterology; Visit Provider Internal Medicine Pulmonary Disease
DX: R06.02 Shortness of breath (principal)
CPT/HCPCS: 36415; 71046; 80048; 83880; 85025

== ENCOUNTER 2021-09-07 10:34 | Outpatient (CLI) | payer MEDICARE, OTHER, SELFPAY ==
[2021-09-07 13:24] LABS: Free T4 Free Thyroxine Reflex 1.17 ng/dL (0.78-2.19)
[2021-09-07 14:10] LABS: Total Triiodothyronine (T3) 1.11 NG/ML (0.97-1.69)
== END 2021-09-07 10:35 | disposition home or self-care (01) ==
LOC: ANHLAB 10:36
PROVIDERS: PCP Internal Medicine Gastroenterology; Visit Provider Internal Medicine Pulmonary Disease
DX: D64.9 Anemia, unspecified (principal)
CPT/HCPCS: 36415; 84439; 84443; 84480

== ENCOUNTER 2021-09-23 14:43 | Outpatient (CLI) | payer MEDICARE, OTHER, SELFPAY ==
[2021-09-23 15:42] LABS: T4 Thyroxine 6.45 ug/dL (5.53-11.0)
== END 2021-09-23 14:44 | disposition home or self-care (01) ==
LOC: ANHLAB 14:48
PROVIDERS: PCP Internal Medicine Gastroenterology; Visit Provider Internal Medicine Gastroenterology
DX: E03.9 Hypothyroidism, unspecified (principal)
CPT/HCPCS: 36415; 84436; 84443

== ENCOUNTER 2021-10-17 09:06 | Emergency (ER) | payer MEDICARE, OTHER, SELFPAY ==
--- NOTE | ~2021-10-17 | XR_ITS ---
XR ankle RT min 3V DATE: 10/17/2021 09:38 INDICATION: Medial right ankle pain. No known injury. TECHNIQUE: 4 views COMPARISON: 03/28/2009 right ankle FINDINGS: No recent fracture or dislocation of the ankle or disruption of the ankle mortise. Slight r esidual old lateral malleolar healed fracture deformity. Prominent posterior and minimal plantar calcaneal enthesopathy. IMPRESSION: No recent fracture or dislocation Calcaneal enthesopathy Reviewed, dictated and finalized at location A.
[2021-10-17 09:10] VITALS: BP 140/82; PULSE 75; RESP 16; TEMP 36.4; O2SAT 100
--- NOTE | 2021-10-17 09:29 | PC.NURSE ---
EDP at bedside to assess pt.
--- NOTE | 2021-10-17 09:34 | ED.LOWEXIN ---
HPI - Extremity Injury (Lower) General Chief Complaint: Extremity Injury, Lower <Hilaria Patterson PA-C - Last Filed: 10/17/21 10:35> Stated Complaint: R foot <Hilaria Patterson PA-C - Last Filed: 10/17/21 10:35> Time Seen by Provider: 10/17/21 09:16 <Hilaria Patterson PA-C - Last Filed: 10/17/21 10:35> Source: patient <HOLLEY Garcia Last Filed: 10/17/21 10:35> Mode of arrival: ambulatory <Hilaria Patterson PA-C - Last Filed: 10/17/21 10:35> Limitations: no limitations <HOLLEY Garcia Last Filed: 10/17/21 10:35> History of Present Illness HPI Narrative: This is a 81-year-old female that presents to the emergency department for right ankle pain since yesterday. No recent injury or trauma. Reports the pain is on the medial side of the ankle. Worse with weightbearing and movement. Denies decreased range of motion or numbness. <Hilaria Patterson PA-C - Last Filed: 10/17/21 10:35> Related Data Home Medications: Home Medications Medication Instructions Recorded Confirmed ascorbic acid (vitamin C) 500 mg 500 mg PO DAILY 11/05/19 08/20/21 capsule calcium citrate 315 mg-vitamin D3 1 tablet PO TID 11/05/19 08/20/21 5 mcg (200 unit) tablet (Calcium Citrate + D) cholecalciferol (vitamin D3) 10 10 mcg PO DAILY 11/05/19 08/20/21 mcg (400 unit) capsule mecobalamin (vitamin B12) 1,000 1,000 mcg sublingual DAILY 11/05/19 08/20/21 mcg disintegrating tablet,sublingual misoprostol 200 mcg tablet 200 mcg PO QAM AND QHS 11/05/19 08/20/21 multivit with min-folic 1 tablet PO DAILY 11/05/19 08/20/21 acid-lutein 400 mcg-250 mcg chewable tablet (Centrum Silver) omega 2-ofe-cpr-fish oil 1,200 mg 1 cap PO DAILY 11/05/19 08/20/21 (144 mg-216 mg) capsule (Fish Oil) vitamin B complex (B 1 tablet PO DAILY 11/05/19 08/20/21 Complex-Vitamin B12 tablet) vitamin E (dl, acetate) 90 mg (200 200 unit PO DAILY 11/05/19 08/20/21 unit) capsule atorvastatin 80 mg tablet 80 mg PO DAILY 08/29/20 08/20/21 carvedilol 25 mg tablet 25 mg PO BID 08/29/20 08/20/21 chlorthalidone 25 mg tablet 25 mg DAILY 08/29/20 08/20/21 clopidogrel 75 mg tablet 75 mg PO DAILY 08/29/20 08/20/21 losartan 100 mg tablet 100 mg PO DAILY 08/29/20 08/20/21 pantoprazole 40 mg tablet,delayed 40 mg PO DAILY 08/29/20 08/20/21 release potassium bicarbonate-citric acid 20 meq PO BID 08/29/20 08/20/21 20 mEq effervescent tablet (Effer-K) <Hilaria Patterson PA-C - Last Filed: 10/17/21 10:35> Allergies/Adverse Reactions: Allergies Allergy/AdvReac Type Severity Reaction Status Date / Time naproxen Allergy Severe cardiac Verified 10/17/21 09:29 arrest NSAIDS (Non-Steroidal Allergy Severe cardiac Verified 10/17/21 09:29 Anti-Inflamma arrest morphine Allergy Mild unknown Verified 10/17/21 09:29 <Hilaria Patterson PA-C - Last Filed: 10/17/21 10:35> Review of Systems Review of Systems: CONSTITUTIONAL: Denies fever MUSCULOSKELETAL: Reports joint pain, and myalgia. NEUROLOGIC: Denies numbness, or weakness. <Hilaria Patterson PA-C - Last Filed: 10/17/21 10:35> All systems reviewed & are unremarkable except as noted in HPI and below <Hilaria Patterson PA-C - Last Filed: 10/17/21 10:35> [facility] Past Medical History Medical History: Medical History Atrophy of left kidney Expressive aphasia History of gastroscopy 08/18/09, 09/09/09, with structure Hypertension Iron (Fe) deficiency anemia Ischemic cerebrovascular accident (CVA) (08/14/20) Treated with tPA and thrombectomy Vaginal delivery 1960, , full term, female, 7#10 1970, , full term, female, 7#10 <Hilaria Patterson PA-C - Last Filed: 10/17/21 10:35> Surgical History Surgical History: Surgical History H/O rectal polypectomy 11/13/08, 08/27/03 H/O right heart catheterization 12/17/08 unsure if lt or
--- NOTE | 2021-10-17 09:35 | PC.NURSE ---
Radiology at bedside to obtain R ankle xray.
[2021-10-17 10:39] VITALS: RESP 16
== END 2021-10-17 10:40 | disposition home or self-care (01) ==
PROVIDERS: Emergency Provider Emergency Medicine; PCP Internal Medicine Gastroenterology
DX: M25.571 Pain in right ankle and joints of right foot (principal); I10 Essential (primary) hypertension; D50.9 Iron deficiency anemia, unspecified; I69.920 Aphasia following unspecified cerebrovascular disease; N26.1 Atrophy of kidney (terminal); Z98.42 Cataract extraction status, left eye; Z98.41 Cataract extraction status, right eye; Z98.84 Bariatric surgery status; Z96.653 Presence of artificial knee joint, bilateral; Z98.1 Arthrodesis status
CPT/HCPCS: 73610; 99283

== ENCOUNTER 2021-12-16 15:04 | Outpatient (CLI) | payer MEDICARE, OTHER, SELFPAY ==
--- NOTE | ~2021-12-16 | MM_ITS ---
EXAMINATION: MM screening [place] BI w christofer HISTORY: Screening mammogram TECHNIQUE: Craniocaudal and mediolateral oblique 3-D tomosynthesis images were obtained and synthetic 2-D images were generated. CAD analysis was submitted and interpreted. COMPARISON: 12/05/2020, 12/03/2019, 09/20/2018 bilateral screening mammogram examinations BREAST PARENCHYMAL COMPOSITION: The breasts are extremely dense, which lowers the sensitivity of mamm ography. FINDINGS: Electronic monitor device overlies the left breast, present on 12/05/2020 as well... Biopsy marker of right breast; history of prior benign right breast biopsy. There is progressive decrease in amount of fat density and size of the breasts since 2019. Scattered bilateral benign calcifications are noted. There is an asymmetric area of increased density in the anterior right breast 2 cm superior to the n ipple on MLO view. Diagnostic right mammogram is recommended, with ultrasound if required. Otherwise there is no evidence of suspicious mass, calcification, or architectural distortion to sugg est malignancy in either breast. There has been no other suspicious interval change. IMPRESSION: 1. Focal asymmetric density in the anterior right breast exam is above the nipple on MLO view 2. Diagnostic right mammogram is recommended, with ultrasound if required BI-RADS Category 0: Incomplete: Needs additional imaging evaluation. Reviewed, dictated and finalized at location A. IMPRESSION: 1. Focal asymmetric density in the anterior right breast exam is above the nipp le on MLO view 2. Diagnostic right mammogram is recommended, with ultrasound if required BI-RADS Category 0: Incomplete: Needs additional imaging evaluation.
== END 2021-12-16 15:05 | disposition home or self-care (01) ==
PROVIDERS: PCP Internal Medicine Gastroenterology; Visit Provider Internal Medicine Gastroenterology
DX: Z12.31 Encounter for screening mammogram for malignant neoplasm of breast (principal); Z98.0 Intestinal bypass and anastomosis status
CPT/HCPCS: 77063; 77067

== ENCOUNTER 2022-01-13 10:35 | Outpatient (CLI) | payer MEDICARE, OTHER, SELFPAY ==
[2022-01-13 11:36] LABS: NT Pro B Type Natriuretic Pept 818 pg/mL (5-100)
== END 2022-01-13 10:36 | disposition home or self-care (01) ==
LOC: ANHLAB 10:39
PROVIDERS: PCP Internal Medicine Gastroenterology
DX: I50.32 Chronic diastolic (congestive) heart failure (principal)
CPT/HCPCS: 36415; 83880

== ENCOUNTER 2022-02-24 11:16 | Outpatient (CLI) | payer MEDICARE, OTHER, SELFPAY ==
--- NOTE | ~2022-02-24 | MMUS_ITS ---
EXAMINATION: MM diagnostic [place] RT w christofer, US breast RT complete HISTORY: Focal asymmetric density reported in anterior right breast above the nipple on screening MLO view of 12/16/2021 TECHNIQUE: Additional 3-D tomosynthesis images of the right breast. were performed and synthetic 2-D images were generated. CAD analysis was submitted and interpreted. High resolution complete right lisa ast ultrasound examination including all 4 quadrants and subareolar area was performed. COMPARISON: 12/16/2021 screening mammogram FINDINGS: MAMMOGRAPHIC FINDINGS: No suspicious mass, architectural distortion, malignant calcification, skin thickening or retraction is detected. There are scattered benign calcifications. Very dense fibroglandular stroma throughout the breasts may obscure masses. ULTRASOUND: No suspicious mass or shadowing or other significant sonographic abnormality is noted. IMPRESSION: 1. No mammographic evidence of malignancy 2. Routine annual mammographic screening is recommended. BI-RADS Category 1: Negative Reviewed, dictated and finalized at location A. 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 No mammographic evidence of malignancy 2. Routine annual mammographic screening is recommended. BI-RADS Category 1: Negative
== END 2022-02-24 11:17 | disposition home or self-care (01) ==
PROVIDERS: PCP Internal Medicine Gastroenterology; Visit Provider Internal Medicine Gastroenterology
DX: R92.8 Other abnormal and inconclusive findings on diagnostic imaging of breast (principal)
CPT/HCPCS: 76641; 77061; 77065; G0279

== ENCOUNTER 2022-04-20 19:37 | Emergency (ER) | payer MEDICARE, OTHER, SELFPAY ==
[2022-04-20 19:48] VITALS: BP 165/111; PULSE 59; RESP 20; TEMP 36.3; O2SAT 100
--- NOTE | 2022-04-20 20:32 | PC.NURSE ---
pt with c/o lower abd pain and pain to suprapubic catheter site. states that when she drains her catheter it only drains a small amount. Bladder scan=36ml
--- NOTE | 2022-04-20 21:05 | PC.NURSE ---
suprapubic catheter irrigated with 60ml of NS without difficulty. immediate return on 60ml via gravity
[2022-04-20 21:17] LABS: Appearance Urine Slightly Cloudy (Clear); Bilirubin Urine Negative (Negative); Blood Urine 2+ (Negative); Color Urine Yellow (Yellow); Glucose Urine UA Negative (Negative); Ketones Urine Negative (Negative); Leukocyte Esterase Ur 1+ LEU/UL (Negative); Nitrate Urine Negative (Negative); Protein Urine 2+ mg/dL (Negative); Urobilinogen Urine 0.2 mg/dL (<2.0)
[2022-04-20 21:21] LABS: Bacteria Urine Trace /hpf; Mucus Urine Rare /lpf; RBC Urine >75 /hpf (0-2); Squamous Epithelial Cell Urine Rare /hpf (Few)
[2022-04-20 21:22] LABS: Add Urine Microscopic? YES
[2022-04-20 21:36] LABS: Basophils Percent Auto 0.4 % (0.2-1.2); Eosinophils Absolute Auto 0.2 K/mm3 (0-0.3); Eosinophils Percent Auto 2.5 % (0-4.4); Hematocrit 37.7 % (37.0-47.0); Hemoglobin 12.6 g/dL (12.0-15.0); Immature Granulocyte Absolute 0.03 K/mm3 (0.00-0.031); Immature Granulocyte Percent A 0.3 % (0-0.5); Lymphocytes Absolute Auto 1.37 K/mm3 (0.9-3.2); Mean Corpuscular HGB Conc 33.4 g/dl (32-36); Mean Corpuscular Hemoglobin 31.7 pg (26-34); Mean Corpuscular Volume 94.7 fl (80-100); Mean Platelet Volume 10.5 fl (7.4-10.4); Monocytes Absolute Auto 0.6 K/mm3 (0.1-0.6); Neutrophils Absolute Auto 6.8 K/mm3 (1.3-6.7); Neutrophils Percent Auto 74.8 % (45.5-73.1); Platelet Count Result 181 k/mm3 (150-375); Red Blood Count 3.98 M/mm3 (4.2-5.4); Red Cell Distribution Width 12.6 % (11.5-14.5); White Blood Count 9.1 K/mm3 (4.5-10.0)
[2022-04-20 21:49] LABS: Anion Gap 4 mmol/L (8-16); Blood Urea Nitrogen 22 mg/dL (7-17); Calcium 8.9 mg/dL (8.4-10.2); Carbon Dioxide 27 mmol/L (22-30); Chloride 102 mmol/L (98-107); Estimated CRCL calculation 30 ml/min; Estimated Glomerular Filt Rate 53; Glucose 107 mg/dL (65-110); Potassium 4.5 mmol/L (3.4-5.0); Sodium 133 mmol/L (137-145)
--- NOTE | 2022-04-20 22:27 | ED.FEMALEGU ---
HPI - Female Genitourinary General Chief complaint: Urogenital-Female Stated complaint: catheter issues Time Seen by Provider: 04/20/22 20:14 History of Present Illness HPI Narrative: Patient is a 81-year-old female who presents to the ER with cramping lower abdominal pain. She feels her may be an issue with her indwelling suprapubic catheter. She reports has been having pain for 2 to 3 days that waxes and wanes. She has no fevers or chills or sweats. She reports that she has had decreased urine output from her suprapubic catheter. She does not wear a leg bag she only removes the stopper and drains it into the toilet. She is found no aggravating or alleviating factors. No chest pain or chest pressure. Patient is due to have her suprapubic catheter exchanged at her urologist office in 3 days. Related Data Home Medications Medication Instructions Recorded Confirmed ascorbic acid (vitamin C) 500 mg 500 mg PO DAILY 11/05/19 03/08/22 capsule calcium citrate 315 mg-vitamin D3 1 tablet PO TID 11/05/19 03/08/22 5 mcg (200 unit) tablet (Calcium Citrate + D) cholecalciferol (vitamin D3) 10 10 mcg PO DAILY 11/05/19 03/08/22 mcg (400 unit) capsule mecobalamin (vitamin B12) 1,000 1,000 mcg sublingual DAILY 11/05/19 03/08/22 mcg disintegrating tablet,sublingual misoprostol 200 mcg tablet 200 mcg PO QAM AND QHS 11/05/19 03/08/22 multivit with min-folic 1 tablet PO DAILY 11/05/19 03/08/22 acid-lutein 400 mcg-250 mcg chewable tablet (Centrum Silver) omega 8-exd-csc-fish oil 1,200 mg 1 cap PO DAILY 11/05/19 03/08/22 (144 mg-216 mg) capsule (Fish Oil) vitamin B complex (B 1 tablet PO DAILY 11/05/19 03/08/22 Complex-Vitamin B12 tablet) vitamin E (dl, acetate) 90 mg (200 200 unit PO DAILY 11/05/19 03/08/22 unit) capsule atorvastatin 80 mg tablet 80 mg PO DAILY 08/29/20 03/08/22 carvedilol 25 mg tablet 25 mg PO BID 08/29/20 03/08/22 chlorthalidone 25 mg tablet 25 mg DAILY 08/29/20 03/08/22 clopidogrel 75 mg tablet 75 mg PO DAILY 08/29/20 03/08/22 losartan 100 mg tablet 100 mg PO DAILY 08/29/20 03/08/22 pantoprazole 40 mg tablet,delayed 40 mg PO DAILY 08/29/20 03/08/22 release potassium bicarbonate-citric acid 20 meq PO BID 08/29/20 03/08/22 20 mEq effervescent tablet (Effer-K) Allergies Allergy/AdvReac Type Severity Reaction Status Date / Time naproxen Allergy Severe cardiac Verified 03/08/22 10:27 arrest NSAIDS (Non-Steroidal Allergy Severe cardiac Verified 03/08/22 10:27 Anti-Inflamma arrest morphine Allergy Mild unknown Verified 03/08/22 10:27 Review of Systems Review of Systems: All systems reviewed & are unremarkable except as noted in HPI and below Constitutional: Constitutional: Denies chills and Denies fatigue Cardiovascular: Cardiovascular: Denies chest pain, Denies rapid heart rate and Denies radiating jaw, neck or arm pain Respiratory: Respiratory: Denies cough and Denies dyspnea Gastrointestinal: Gastrointestinal: Reports abdominal pain, Denies nausea and Denies vomiting Genitourinary: Genitourinary: Denies nocturia, Denies dysuria and Denies flank pain PMFSH Past Medical History Medical History Atrophy of left kidney Expressive aphasia History of gastroscopy 08/18/09, 09/09/09, with structure Hypertension Iron (Fe) deficiency anemia Ischemic cerebrovascular accident (CVA) (08/14/20) Treated with tPA and thrombectomy Vaginal delivery 1960, , full term, female, 7#10 1969, , full term, female, 7#10 Surgical History Surgical History H/O rectal polypectomy 11/13/08, 08/27/03 H/O right heart catheterization 12/17/08 unsure if lt or rt History of breast biopsy 06/09/10, stereotactic, biopsy rt breast History of cholecystectomy 05/09/09 History of endoscopy 12/16/09, 02/10/10, 08/25/10, 04/26/18 History of esophagogastroduodenoscopy (EGD) 04/25/12, with u
[2022-04-20 23:17] VITALS: BP 126/74; PULSE 71; RESP 16; O2SAT 98
== END 2022-04-20 23:22 | disposition home or self-care (01) ==
PROVIDERS: Emergency Provider Emergency Medicine; PCP Internal Medicine Gastroenterology
DX: N30.90 Cystitis, unspecified without hematuria (principal); N32.89 Other specified disorders of bladder; I10 Essential (primary) hypertension; D50.9 Iron deficiency anemia, unspecified; Z87.19 Personal history of other diseases of the digestive system; Z98.42 Cataract extraction status, left eye; Z98.41 Cataract extraction status, right eye; Z98.84 Bariatric surgery status; Z90.710 Acquired absence of both cervix and uterus; Z96.653 Presence of artificial knee joint, bilateral; Z98.1 Arthrodesis status
CPT/HCPCS: 36415; 80048; 81001; 85025; 99283

== ENCOUNTER 2022-05-11 11:30 | Inpatient (IN) | payer MEDICARE, OTHER, SELFPAY ==
[2022-05-11] VITALS (16 sets, daily range): BP systolic 76–119; BP diastolic 57–88; PULSE 57–73; RESP 11–42; TEMP 36.3–37; O2SAT 100; BMI 19.8
--- NOTE | ~2022-05-11 | NM_ITS ---
EXAMINATION: NM GI bleeding DATE: 05/12/2022 13:23 INDICATION: Gastrointestinal hemorrhage. TECHNIQUE: 24.1 mCi Tc 99m in vitro labeled red cells was administered intravenously. Scintigraphic images of the abdomen were obtained for one hour. COMPARISON: CT abdomen and pelvis 09/30/2020 FINDINGS: No pattern of abnormal activity is seen in the abdomen or pelvis to suggest gastrointestina l hemorrhage. IMPRESSION: 1. No evidence of active gastrointestinal hemorrhage. Reviewed, dictated and finalized at location A. TY ADMINISTRATOR
--- NOTE | ~2022-05-11 | US_ITS ---
EXAMINATION: US renal BI DATE: 05/11/2022 17:28 INDICATION: Acute renal insufficiency TECHNIQUE: Multiple ultrasound grayscale images of the kidneys were obtained. COMPARISON: CT dated 09/30/2020 and renal ultrasound dated 09/19/2020 FINDINGS: The left kidney is not visualized due to severe atrophy and better appreciated on the prior CT. The r ight kidney measures 9.3 x 5.7 x 5.8 cm. Small region of cortical scarring at the upper pole of the r ight kidney. A couple small anechoic right renal cysts the largest measuring 11 mm in maximal diamete r. The right kidney demonstrates normal echogenicity. No evident shadowing nephrolithiasis. No hydron ephrosis.. The bladder is normal. IMPRESSION: 1. A couple small right renal cysts and small region of cortical scarring at the upper pole likely r elated to prior infection or infarction. No hydronephrosis. 2. Nonvisualized left kidney is severe left renal atrophy evident on prior CT. Reviewed, dictated and finalized at location A. ZER IMPRESSION: 1. A couple small right renal cysts and small region of cortical scarring at t he upper pole likely related to prior infection or infarction. No hydronephrosi s. 2. Nonvisualized left kidney is severe left renal atrophy evident on prior CT.
--- NOTE | ~2022-05-11 | XR_ITS ---
EXAMINATION: XR chest 2V DATE: 05/11/2022 12:15 INDICATION: Shortness of breath. TECHNIQUE: Frontal and lateral views of the chest were obtained. COMPARISON: Chest 2 views 09/02/2021 FINDINGS: A calcified left lung nodule and calcified left hilar lymph nodes are consistent with old g ranulomatous disease. No pleural effusion or pneumothorax. Cardiomegaly is noted. There are changes o f anterior fusion procedure in cervical spine. There are surgical clips in the abdomen. There is mild anterior wedging of 2 lower thoracic vertebral bodies. IMPRESSION: 1. Cardiomegaly. Reviewed, dictated and finalized at location A. RETARDER OPERATOR IMPRESSION: 1. Cardiomegaly.
--- NOTE | 2022-05-11 11:41 | ECG_ITS ---
Measurements Intervals [place] Rate: 65 P: 60 VT: 161 QRS: 12 QRSD: 80 T: 30 QT: 400 QTc: 416 Interpretive Statements SINUS RHYTHM NONSPECIFIC ST & T-WAVE ABNORMALITY COMPARED TO ECG 11/18/2020 12:36:49 NO SIGNIFICANT CHANGES Electronically Signed On 05-11-2022 14:54:33 [employer]ATION [employer]NCE OFFICER by Lorena Willis M.D.
[2022-05-11 12:00] LABS: Basophils Absolute Auto 0.1 K/mm3 (0.0-0.1); Eosinophils Absolute Auto 0.1 K/mm3 (0-0.3); Eosinophils Percent Auto 1.6 % (0-4.4); Hematocrit 30.7 % (37.0-47.0); Hemoglobin 9.8 g/dL (12.0-15.0); Immature Granulocyte Absolute 0.04 K/mm3 (0.00-0.031); Immature Granulocyte Percent A 0.6 % (0-0.5); Lymphocytes Absolute Auto 1.43 K/mm3 (0.9-3.2); Lymphocytes Percent Auto 20.8 % (18.3-44.2); Mean Corpuscular HGB Conc 31.9 g/dl (32-36); Mean Corpuscular Hemoglobin 30.9 pg (26-34); Mean Corpuscular Volume 96.8 fl (80-100); Mean Platelet Volume 10.2 fl (7.4-10.4); Monocytes Absolute Auto 0.2 K/mm3 (0.1-0.6); Platelet Count Result 267 k/mm3 (150-375); Red Blood Count 3.17 M/mm3 (4.2-5.4); Red Cell Distribution Width 12.8 % (11.5-14.5); White Blood Count 6.9 K/mm3 (4.5-10.0)
--- NOTE | 2022-05-11 12:25 | ED.SOB ---
HPI - SOB/Dyspnea General Chief Complaint: Shortness of Breath/Dyspnea Stated Complaint: difficulty breathing Time Seen by Provider: 05/11/22 12:03 History of Present Illness HPI Narrative: Patient is an 82-year-old female with a history of ischemic stroke, hyperlipidemia, hypertension, urinary retention status post suprapubic catheter presenting with shortness of breath. Patient states that for the last 3 to 4 days she has felt persistently short of breath. States that it started while she was resting a couple days ago. States that she feels like she cannot take a deep breath. Also reports feeling mildly lightheaded. States that she has had multiple episodes like this in the past since having her stroke. She denies chest pain, palpitations, back or abdominal pain, nausea or vomiting, diarrhea, dysuria, leg swelling. Patient does report having a bright red bowel movement several days ago. States that she spoke with her GI doctor who reassured her as she does have a history of numerous hemorrhoids. Related Data Home Medications Medication Instructions Recorded Confirmed ascorbic acid (vitamin C) 500 mg 500 mg PO DAILY 11/05/19 05/11/22 capsule calcium citrate 315 mg-vitamin D3 1 tablet PO TID 11/05/19 05/11/22 5 mcg (200 unit) tablet (Calcium Citrate + D) mecobalamin (vitamin B12) 1,000 1,000 mcg sublingual DAILY 11/05/19 05/11/22 mcg disintegrating tablet,sublingual misoprostol 200 mcg tablet 200 mcg PO DAILY 11/05/19 05/11/22 multivit with min-folic 1 tablet PO DAILY 11/05/19 05/11/22 acid-lutein 400 mcg-250 mcg chewable tablet (Centrum Silver) omega 3-mzq-ozl-fish oil 1,200 mg 1 cap PO DAILY 11/05/19 05/11/22 (144 mg-216 mg) capsule (Fish Oil) vitamin B complex (B 1 tablet PO DAILY 11/05/19 05/11/22 Complex-Vitamin B12 tablet) vitamin E (dl, acetate) 90 mg (200 200 unit PO DAILY 11/05/19 05/11/22 unit) capsule atorvastatin 80 mg tablet 80 mg PO HS 08/29/20 05/11/22 pantoprazole 40 mg tablet,delayed 40 mg PO DAILY 08/29/20 05/11/22 release aspirin 81 mg chewable tablet 81 mg PO DAILY 05/11/22 05/11/22 carvedilol 12.5 mg tablet (Coreg) 12.5 mg PO BID 05/11/22 05/11/22 cephalexin 500 mg capsule 500 mg PO DAILY 05/11/22 05/11/22 citalopram 20 mg tablet 20 mg PO DAILY 05/11/22 05/11/22 levetiracetam 1,000 mg tablet 1,000 mg PO BID 05/11/22 05/11/22 sacubitril 24 mg-valsartan 26 mg 1 tablet PO BID 05/11/22 05/11/22 tablet (Entresto) Allergies Allergy/AdvReac Type Severity Reaction Status Date / Time naproxen Allergy Severe cardiac Verified 05/11/22 15:32 arrest NSAIDS (Non-Steroidal Allergy Severe cardiac Verified 05/11/22 15:32 Anti-Inflamma arrest morphine Allergy Mild unknown Verified 05/11/22 15:32 Review of Systems Review of Systems: All systems reviewed & are unremarkable except as noted in HPI and below PMFSH Past Medical History Medical History (Updated 05/12/22 @ 22:05 by Mindi Guardado MD) Acute blood loss anemia Atrophy of left kidney Expressive aphasia History of gastroscopy 08/18/09, 09/09/09, with structure Hypertension Iron (Fe) deficiency anemia Ischemic cerebrovascular accident (CVA) (08/14/20) Treated with tPA and thrombectomy Rectal bleeding Urinary incontinence Vaginal delivery 1960, , full term, female, 7#10 1969, , full term, female, 7#10 Surgical History Surgical History (Updated 05/12/22 @ 14:32 by Kevin Campbell MD) H/O rectal polypectomy 11/13/08, 08/27/03 H/O right heart catheterization 12/17/08 unsure if lt or rt History of breast biopsy 06/09/10, stereotactic, biopsy rt breast History of cholecystectomy 05/09/09 History of endoscopy 12/16/09, 02/10/10, 08/25/10, 04/26/18 History of esophagogastroduodenoscopy (EGD) 04/25/12, with upper GI History of eye surgery 11/05/14 cataract right eye, 11/20/14 cataract left eye, 07/28/18 bilateral removal of scar tissue 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
[2022-05-11 12:37] LABS: Alanine Aminotransferase 45 U/L (6-35); Albumin Level 3.3 g/dL (3.5-5.1); Alkaline Phosphatase 52 U/L (38-126); Anion Gap 5 mmol/L (8-16); Aspartate Amino Transferase 39 U/L (14-36); Bilirubin,Total 0.5 mg/dL (0.2-1.3); Blood Urea Nitrogen 48 mg/dL (7-17); Calcium 8.3 mg/dL (8.4-10.2); Carbon Dioxide 23 mmol/L (22-30); Chloride 108 mmol/L (98-107); Estimated Glomerular Filt Rate 31; Glucose 115 mg/dL (65-110); Potassium 5.4 mmol/L (3.4-5.0); Sodium 136 mmol/L (137-145)
[2022-05-11 12:54] LABS: Partial Thromboplastin Time 29.2 SECONDS (22.3-36.8)
[2022-05-11 12:55] LABS: INR 1.3; Prothrombin Time 15.3 Seconds (11.1-14.7)
[2022-05-11 12:58] LABS: D Dimer 0.62 ug/mL (<0.48)
[2022-05-11 13:09] LABS: NT Pro B Type Natriuretic Pept 626 pg/mL (19.9-100); Troponin I < 0.012 ng/mL (0.000-0.034)
[2022-05-11] MEDS: SODIUM CHLORIDE 0.9% IV 1,000 ML 999 ML IV CONT (13:31)
--- NOTE | 2022-05-11 14:41 | PM.IMHP ---
H&P: HPI History of Present Illness Date/Time: 05/11/22 14:41 Chief Complaint: Shortness of breath Narrative: This is an 82-year-old female patient who resides in her own home. Her significant other is at the bedside answering questions for her. She has a history of having a CVA with some mild expressive aphasia. She also has hyperlipidemia and hypertension. The patient has urinary retention status post suprapubic catheter. She stated that for the last 3 or 4 days she has been short of breath but is not on any oxygen at home. The patient felt like she was mildly lightheaded could take a deep breath. She has had multiple episodes of this since she has had her stroke. She also reported that she is having bright red bowel movements several days ago. Patient spoke to her GI doctors stated that it was probably just hemorrhoids and to monitor it. Her H&H is 9.8 and 30.7 compared to 12.6 and 37.7 on 04/20/2022. The patient was found to be guaiac positive. Potassium is high at 5.4 sodium 136 creatinine 1.6. Her last creatinine was normal but previously her creatinine had been anywhere from 1.2-3.00. Patient was negative for influenza A/B and COVID. Chest x-ray was read as cardiomegaly. GI has been consulted. The patient is being admitted to observation status on the date of service of 05/11/2022 Review of Systems Review of Systems: See HPI All systems reviewed & are unremarkable except as noted in HPI and below Constitutional: Constitutional: Reports as per HPI and Reports no additional constitutional complaints Eyes: Eyes: Reports as per HPI and Reports no additional eye complaints ENT: Reports system reviewed and no additional complaints, except as documented and Reports Normal hearing present Cardiovascular: Cardiovascular: Reports no additional cardiovascular complaints Respiratory: Respiratory: Reports no additional respiratory complaints and Reports no additional respiratory complaints Gastrointestinal: Gastrointestinal: Reports as per HPI and Reports no additional gastrointestinal complaints Musculoskeletal: Musculoskeletal: Reports no additional musculoskeletal complaints Integumentary/Breasts: Skin/Breast: Reports system reviewed and no additional complaints, except as docu and Reports as per HPI Neurologic: Reports system reviewed and no additional complaints, except as documented, Reports as per HPI and Reports Normal hearing present Psychiatric: Psychiatric: Reports no additional psychiatric complaints and Reports as per HPI Endocrine: Endocrine: Reports no additional endocrine complaints Hematologic/Lymphatic: Hematologic/Lymphatic: Reports no additional hematologic/lymphatic complaints Allergic/Immunologic: Allergic/Immunologic: Reports no additional allergic/immunologic complaints PMFSH Past Medical History Medical History Atrophy of left kidney Expressive aphasia History of gastroscopy 08/18/09, 09/09/09, with structure Hypertension Iron (Fe) deficiency anemia Ischemic cerebrovascular accident (CVA) (08/14/20) Treated with tPA and thrombectomy Vaginal delivery 1960, , full term, female, 7#10 1969, , full term, female, 7#10 Surgical History Surgical History H/O rectal polypectomy 11/13/08, 08/27/03 H/O right heart catheterization 12/17/08 unsure if lt or rt History of breast biopsy 06/09/10, stereotactic, biopsy rt breast History of cholecystectomy 05/09/09 History of endoscopy 12/16/09, 02/10/10, 08/25/10, 04/26/18 History of esophagogastroduodenoscopy (EGD) 04/25/12, with upper GI History of eye surgery 11/05/14 cataract right eye, 11/20/14 cataract left eye, 07/28/18 bilateral removal of scar tissue 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
[2022-05-11 14:51] LABS: Influenza A QL RT-PCR Negative (Negative); Influenza B QL RT-PCR Negative (Negative); SARS-CoV-2 RNA PCR Negative
--- NOTE | 2022-05-11 14:54 | PC.NURSE ---
Pt is A&Ox4 with delayed speech/ occasionally garbled from previous CVA. Pt is ambulatory.
--- NOTE | 2022-05-11 15:10 | ADMGEN ---
This patient, Nicole Patricia, was admitted to 2 Medical Room 249-01. Patient/family oriented to hospital policies and general routines including ID bracelet, bed and alarms, visiting hours, pain management, procedures, bathroom and other care routines, personal items, smoking policy, room service/diet, and visiting hours. Information on how to activate the Rapid Response Team has been discussed. Patient/Family are encouraged to report perceived risks to care and to ask questions if they do not understand what they are told or what they should do.
[2022-05-11 16:28] LABS: Hematocrit 24.7 % (37.0-47.0)
[2022-05-11 16:50] LABS: Troponin I < 0.012 ng/mL (0.000-0.034)
[2022-05-11] MEDS: SODIUM CHLORIDE 0.9% IV 1,000 ML 100 ML IV CONT (17:43)
[2022-05-11 18:49] LABS: Appearance Urine Slightly Cloudy (Clear); Bilirubin Urine Negative (Negative); Blood Urine Negative (Negative); Color Urine Light Yellow (Yellow); Glucose Urine UA Negative (Negative); Ketones Urine Negative (Negative); Leukocyte Esterase Ur Negative LEU/UL (NEGATIVE); Nitrate Urine Negative (Negative); Protein Urine Negative (Negative); Specific Grav Ur 1.015 (1.001-1.035); Urobilinogen Urine 0.2 mg/dL (<2.0); pH Urine 7.5 (5.0-9.0)
[2022-05-11 18:53] LABS: RBC Urine 0-2 /hpf (0-2); Squamous Epithelial Cell Urine Rare /hpf (Few); WBC Urine 0-3 /hpf (0-3)
[2022-05-11 18:59] LABS: Add Urine Microscopic? YES
[2022-05-11 19:40] LABS: Troponin I < 0.012 ng/mL (0.000-0.034)
[2022-05-11] MEDS: ATORVASTATIN 40 MG TABLET 80 MG PO (21:12)
[2022-05-11] MEDS: levETIRAcetam 500 MG TABLET 1000 MG PO (21:16)
[2022-05-12] VITALS (29 sets, daily range): BP systolic 93–207; BP diastolic 43–111; PULSE 57–108; RESP 10–25; TEMP 36.3–37.4; O2SAT 96–100
[2022-05-12 01:18] LABS: Hematocrit 21.6 % (37.0-47.0); Hemoglobin 7.2 g/dL (12.0-15.0)
[2022-05-12] MEDS: SODIUM CHLORIDE 0.9% IV 1,000 ML 100 ML IV CONT (03:38)
--- NOTE | 2022-05-12 06:28 | PC.NURSE ---
PT UP TO BR HAD LARGE BLOODY STOOL, BECAME UNRESPONSIVE AND SPIT UP SMALL BLOOD CLOT, RAPID RESPONSE CALLED
[2022-05-12 06:53] LABS: Basophils Absolute Auto 0.1 K/mm3 (0.0-0.1); Basophils Percent Auto 0.5 % (0.2-1.2); Eosinophils Absolute Auto 0.1 K/mm3 (0-0.3); Eosinophils Percent Auto 1.3 % (0-4.4); Immature Granulocyte Absolute 0.03 K/mm3 (0.00-0.031); Immature Granulocyte Percent A 0.3 % (0-0.5); Lymphocytes Absolute Auto 3.29 K/mm3 (0.9-3.2); Lymphocytes Percent Auto 35.8 % (18.3-44.2); Mean Corpuscular HGB Conc 31.9 g/dl (32-36); Mean Corpuscular Hemoglobin 31.6 pg (26-34); Mean Platelet Volume 10.5 fl (7.4-10.4); Monocytes Absolute Auto 0.6 K/mm3 (0.1-0.6); Monocytes Percent Auto 6.5 % (2.6-8.5); Neutrophils Absolute Auto 5.1 K/mm3 (1.3-6.7); Neutrophils Percent Auto 55.6 % (45.5-73.1); Platelet Count Result 196 k/mm3 (150-375); Red Blood Count 1.93 M/mm3 (4.2-5.4); Red Cell Distribution Width 13.1 % (11.5-14.5); White Blood Count 9.2 K/mm3 (4.5-10.0)
[2022-05-12 06:59] LABS: Hemoglobin 6.4 g/dL (12.0-15.0)
[2022-05-12 07:00] LABS: Hematocrit 20.1 % (37.0-47.0)
[2022-05-12 07:01] LABS: Alanine Aminotransferase 37 U/L (6-35); Albumin Level 2.4 g/dL (3.5-5.1); Alkaline Phosphatase 43 U/L (38-126); Anion Gap 5 mmol/L (8-16); Aspartate Amino Transferase 29 U/L (14-36); Bilirubin,Total 0.3 mg/dL (0.2-1.3); Blood Urea Nitrogen 47 mg/dL (7-17); Calcium 7.5 mg/dL (8.4-10.2); Carbon Dioxide 18 mmol/L (22-30); Chloride 115 mmol/L (98-107); Estimated CRCL calculation 22 ml/min; Estimated Glomerular Filt Rate 36; Glucose 138 mg/dL (65-110); Magnesium 1.9 mg/dL (1.6-2.3); Potassium 4.7 mmol/L (3.4-5.0); Sodium 138 mmol/L (137-145)
[2022-05-12 07:02] LABS: Lactic Acid Reflex 2.6 mmol/L (0.7-2.0)
[2022-05-12 07:03] LABS: Hemoglobin 6.1 g/dL (12.0-15.0)
[2022-05-12 07:04] LABS: Hematocrit 19.1 % (37.0-47.0)
--- NOTE | 2022-05-12 07:50 | PC.NURSE ---
pt transferred via bed to ICU 2
[2022-05-12 07:57] LABS: Glucose Point of Care 113 mg/dl (65-105)
--- NOTE | 2022-05-12 08:26 | PC.NURSE ---
pt passed large amount of blood with stool on bedpan at 0710 following large amount of blood loss at 0630 on toilet for shift leader, one unit of blood infusing, [address] Werner today's hospitalist to update on condition, reviewed critical labs and new developments, he will contact ICU MD to review pt condition for possible transfer, 07 Dr Jasso to bedside, 0745 pt transferred to room ICU 2, bedside report given to receiving RN, family updated on transfer, pt was alert and talking throughout morning and transfer, only c/o is mild back pain
--- NOTE | 2022-05-12 09:10 | WPDCNINT ---
Assessment and Plan Assessment and plan (1) GI bleed: Code(s): K92.2 - Gastrointestinal hemorrhage, unspecified Status: Acute Assessment and Plan: Patient with bright red blood per rectum, according to the daughter she has had this issue last year but was not as severe. She did get a colonoscopy at that time but it was inconclusive. -patient had multiple bloody bowel movements on this admission, dropped her hemoglobin to 6.1 -being transfused 2 units of packed RBCs, will recheck hemoglobin after that and will transfuse as needed -continue Protonix IV Q12H -GI has been consulted, for -patient to have a nuclear med GI bleeding scan -patient will be prepared for endoscopy and colonoscopy -hold all p.o. meds (2) Anemia: Qualifiers: Anemia type: unspecified type Qualified Code(s): D64.9 - Anemia, unspecified Code(s): D64.9 - Anemia, unspecified Status: Acute Assessment and Plan: As above Stool for occult blood was positive -transfuse packed RBCs as needed (3) Hypertension: Qualifiers: Hypertension type: primary hypertension Qualified Code(s): I10 - Essential (primary) hypertension Code(s): I10 - Essential (primary) hypertension Status: Acute Assessment and Plan: Will hold all antihypertensives (4) Expressive aphasia: Code(s): R47.01 - Aphasia Status: Acute Assessment and Plan: Patient has had a history of CVA with expressive aphasia -hold all anticoagulation (5) Acute kidney injury: Code(s): N17.9 - Acute kidney failure, unspecified Status: Acute Assessment and Plan: Patient with acute kidney injury likely related to hypovolemi -patient has a history of atrophic left kidney -urine output has been adequate -creatinine improving, almost at her baseline -continue to monitor urine output, renal function electrolytes Plan DVT prophylaxis: SCDs Stress ulcer prophylaxis: Protonix IV q.12 hours Nutrition: NPO Code Status: Full code Critical Care Time Spent: 47 minutes Discussed with patient and her daughter and updated them with patient's condition and plan of care. I spent with the GI physician is going to obtain a nuclear med bleeding scan, also will prepare her for endoscopy and colonoscopy. The are also aware that the patient is going to receive 2 units of packed RBCs, and will follow hemoglobin levels Due to a high probability of clinically significant, life threatening deterioration, the patient required my highest level of preparedness to intervene emergently and I personally spent this critical care time directly and personally managing the patient. This critical care time included obtaining a history; examining the patient; pulse oximetry; ordering and review of studies; arranging urgent treatment with development of a management plan; evaluation of patient's response to treatment; frequent reassessment; and discussions with other providers. It was exclusive of separately billable procedures and treating other patients and teaching time. Please see Assessment and Plan section and the rest of the note for further information on patient assessment and treatment This dictation may have been done utilizing a voice recognition system. Attempts have been made to correct errors. However, there may be uncorrected grammatical, spelling, and recognitions errors present. Care Professional Consult Note Consult date: 05/12/22 Reason for consult: Bright red blood per rectum, severe anemia, syncope HPI: Nicole Patricia is a 82 year old female with significant past medical history of iron deficiency anemia, CVA with residual expressive aphasia, essential hypertension, atrophy of the left kidney, multiple colonoscopies, endoscopies, bilateral knee replacements, suprapubic catheter due to urinary retention presented the ED on 05/11/2022 with complains of shortness of breath for 3-4 days prior to admission, also stated that s
[2022-05-12] MEDS: levETIRAcetam 1000MG/NACL100ML 1,000 MG/100 ML BAG 400 MG IVPB ×2 (09:33→20:48)
[2022-05-12] MEDS: SODIUM CHLORIDE 0.9% IV 250 ML 30 ML IV CONT (09:34)
[2022-05-12] MEDS: ONDANSETRON INJ 4 MG/2 ML VIAL ×2 (09:36→15:55)
[2022-05-12 09:49] LABS: Reflex Lactic Acid Yes or No Add Lactic
[2022-05-12 10:13] LABS: Lactic Acid 0.8 mmol/L (0.7-2.0)
[2022-05-12 10:49] LABS: Total Triiodothyronine (T3) 0.73 NG/ML (0.97-1.69)
--- NOTE | 2022-05-12 12:22 | PM.IMPN ---
Progress Note: A&P Assessment and Plan (1) GI bleed: Code(s): K92.2 - Gastrointestinal hemorrhage, unspecified Status: Acute Assessment and Plan: Patient with bright red blood per rectum, according to the daughter she has had this issue last year but was not as severe. She did get a colonoscopy at that time but it was inconclusive. -patient had multiple bloody bowel movements on this admission, dropped her hemoglobin to 6.1 -being transfused 2 units of packed RBCs, will recheck hemoglobin after that and will transfuse as needed -continue Protonix IV Q12H -GI has been consulted, for -patient to have a nuclear med GI bleeding scan -patient will be prepared for endoscopy and colonoscopy -hold all p.o. meds (2) Anemia: Qualifiers: Anemia type: unspecified type Qualified Code(s): D64.9 - Anemia, unspecified Code(s): D64.9 - Anemia, unspecified Status: Acute Assessment and Plan: As above Stool for occult blood was positive -transfuse packed RBCs as needed (3) Hypertension: Qualifiers: Hypertension type: primary hypertension Qualified Code(s): I10 - Essential (primary) hypertension Code(s): I10 - Essential (primary) hypertension Status: Acute Assessment and Plan: Will hold all antihypertensives (4) Expressive aphasia: Code(s): R47.01 - Aphasia Status: Acute Assessment and Plan: Patient has had a history of CVA with expressive aphasia -hold all anticoagulation (5) Acute kidney injury: Code(s): N17.9 - Acute kidney failure, unspecified Status: Acute Assessment and Plan: Patient with acute kidney injury likely related to hypovolemi -patient has a history of atrophic left kidney -urine output has been adequate -creatinine improving, almost at her baseline -continue to monitor urine output, renal function electrolytes Plan DVT prophylaxis: SCDs Stress ulcer prophylaxis: Protonix IV q.12 hours Nutrition: NPO Code Status: Full code Critical Care Time Spent: 47 minutes Discussed with patient and her daughter and updated them with patient's condition and plan of care. I spent with the GI physician is going to obtain a nuclear med bleeding scan, also will prepare her for endoscopy and colonoscopy. The are also aware that the patient is going to receive 2 units of packed RBCs, and will follow hemoglobin levels Due to a high probability of clinically significant, life threatening deterioration, the patient required my highest level of preparedness to intervene emergently and I personally spent this critical care time directly and personally managing the patient. This critical care time included obtaining a history; examining the patient; pulse oximetry; ordering and review of studies; arranging urgent treatment with development of a management plan; evaluation of patient's response to treatment; frequent reassessment; and discussions with other providers. It was exclusive of separately billable procedures and treating other patients and teaching time. Please see Assessment and Plan section and the rest of the note for further information on patient assessment and treatment This dictation may have been done utilizing a voice recognition system. Attempts have been made to correct errors. However, there may be uncorrected grammatical, spelling, and recognitions errors present. Subjective Date/time seen: 05/12/22 12:22 Episode of bleeding overnight x2. Hemoglobin 6, transfusion ordered Exam Narrative: General: Elderly female in no acute distress HEENT:? Pupils are reactive, sclera is clear, moist oral mucosa Neck:? Supple Respiratory:? Clear to auscultation bilaterally with decreased at bases, no wheezing, adequate air entry Cardiac:? S1-S2 is normal, regular rate and rhythm Abdomen:? Soft, nontender, nondistended, suprapubic catheter in place, previous surgical scar noted Extremities:? No edema, palpable pedal p
[2022-05-12] MEDS: PANTOPRAZOLE SODIUM IV 40 MG VIAL IV PUSH ×2 (13:44→20:48)
[2022-05-12] MEDS: LACTATED RINGERS 1,000 ML 150 ML IV CONT (13:55)
--- NOTE | 2022-05-12 14:04 | WPDANESEPP ---
Anes - Eval Pre Procedure Procedure: Operation Date: 05/12/22 14:30 Proposed Procedures p Esophagogastroduodenoscopy - Kevin Campbell MD Date/Time: 05/12/22 14:04 Pre Op Diagnosis: GI Bleed Patient Data Age: 82 Gender: F Height: 1.57 m Weight: 49 kg Last Vital Signs Temp 36.8 C 05/12/22 13:57 Pulse 68 05/12/22 13:57 Resp 17 05/12/22 13:57 BP 129/55 L 05/12/22 13:57 Pulse Ox 100 05/12/22 13:57 O2 Del Method Room Air 05/12/22 13:57 Allergies Allergy/AdvReac Type Severity Reaction Status Date / Time naproxen Allergy Severe cardiac Verified 05/11/22 15:32 arrest NSAIDS (Non-Steroidal Allergy Severe cardiac Verified 05/11/22 15:32 Anti-Inflamma arrest morphine Allergy Mild unknown Verified 05/11/22 15:32 Home Medications Medication Instructions Recorded Confirmed Type ascorbic acid (vitamin C) 500 mg 500 mg PO DAILY 11/05/19 05/11/22 History capsule calcium citrate 315 mg-vitamin D3 1 tablet PO TID 11/05/19 05/11/22 History 5 mcg (200 unit) tablet (Calcium Citrate + D) mecobalamin (vitamin B12) 1,000 1,000 mcg sublingual DAILY 11/05/19 05/11/22 History mcg disintegrating tablet,sublingual misoprostol 200 mcg tablet 200 mcg PO DAILY 11/05/19 05/11/22 History multivit with min-folic 1 tablet PO DAILY 11/05/19 05/11/22 History acid-lutein 400 mcg-250 mcg chewable tablet (Centrum Silver) omega 7-vbn-kpt-fish oil 1,200 mg 1 cap PO DAILY 11/05/19 05/11/22 History (144 mg-216 mg) capsule (Fish Oil) vitamin B complex (B 1 tablet PO DAILY 11/05/19 05/11/22 History Complex-Vitamin B12 tablet) vitamin E (dl, acetate) 90 mg (200 200 unit PO DAILY 11/05/19 05/11/22 History unit) capsule atorvastatin 80 mg tablet 80 mg PO HS 08/29/20 05/11/22 History pantoprazole 40 mg tablet,delayed 40 mg PO DAILY 08/29/20 05/11/22 History release aspirin 81 mg chewable tablet 81 mg PO DAILY 05/11/22 05/11/22 History carvedilol 12.5 mg tablet (Coreg) 12.5 mg PO BID 05/11/22 05/11/22 History cephalexin 500 mg capsule 500 mg PO DAILY 05/11/22 05/11/22 History citalopram 20 mg tablet 20 mg PO DAILY 05/11/22 05/11/22 History levetiracetam 1,000 mg tablet 1,000 mg PO BID 05/11/22 05/11/22 History sacubitril 24 mg-valsartan 26 mg 1 tablet PO BID 05/11/22 05/11/22 History tablet (Entresto) Laboratory Tests 05/11/22 05/11/22 05/11/22 14:10 16:02 16:02 WBC RBC Hgb 8.0 g/dL L g/dL (12.0-15.0) Hct 24.7 % L % (37.0-47.0) MCV MCH MCHC RDW Plt Count MPV Immature Gran % (Auto) Neut % (Auto) Lymph % (Auto) [place] % (Auto) Eos % (Auto) Baso % (Auto) Lymph # (Auto) [place] # (Auto) Eos # (Auto) Baso # (Auto) Abs Immat Gran (auto) Absolute Neuts (auto) Absolute Nucleated RBC Nucleated RBC % Sodium Potassium Chloride Carbon Dioxide Anion Gap BUN Creatinine Estim Creat Clear Calc Estimated GFR Glucose POC Capillary Glucose Lactic Acid Calcium Magnesium Total Bilirubin AST ALT Alkaline Phosphatase Troponin I < 0.012 ng/mL ng/mL (0.000-0.034) Total Protein Albumin TSH (Reflex) Free T4 Total T3 Urine Color Urine Appearance Urine pH Ur Specific [place] Urine Protein Urine Glucose (UA) Urine Ketones Ur Blood (Man) Urine Nitrate Urine Bilirubin Urine Urobilinogen
--- NOTE | 2022-05-12 14:26 | WPDGICN ---
Assessment and Plan Assessment and plan (1) GI bleed: Code(s): K92.2 - Gastrointestinal hemorrhage, unspecified Status: Acute Assessment and Plan: similar hospitalization at [facility], will get records family member says that could not find source will proceed with urgent EGD, GIB scan was negative today if egd is negative then will proceed with colonoscopy tomorrow (2) Rectal bleeding: Code(s): K62.5 - Hemorrhage of anus and rectum Status: Acute Assessment and Plan: may need colonoscopy if egd negative (3) Acute blood loss anemia: Code(s): D62 - Acute posthemorrhagic anemia Status: Acute Assessment and Plan: s/p blood transfusion monitor for more signs of bleeding keep hb>7 (4) Expressive aphasia: Code(s): R47.01 - Aphasia Status: Acute Assessment and Plan: from previous cva (5) History of gastric bypass: Code(s): Z98.84 - Bariatric surgery status Status: Acute Assessment and Plan: family member says that patient had problems since surgery (6) Urinary incontinence: Code(s): R32 - Unspecified urinary incontinence Status: Acute GI Consult Note Consult date/time: 05/12/22 14:26 Reason for consult: rectal bleeding HPI: Nicole Patricia is a 82 year old female with history of gastric bypass about 12 years ago, CVA 2 years ago, bladder incontinence s/p suprapubic catheter. About 8 months ago she had GIB, admitted [facility] for [facility] days and apparently unable to find source of bleeding (family member thinks that even did small bowel capsule endoscopy)- no records to review today. She came here with progressive shortness of breath for 3-4 days prior to admission, also had bright red blood per rectum with her bowel movements.?Initial hemoglobin was 9.8, stool guaiac was positive, creatinine was 1.6 but then had more bleeding with hb down to 6.1 and passed out. She received blood transfusion and transferred to ICU. I ordered stat GIB nuclear scan and negative for acute bleeding. Review of Systems Constitutional: Constitutional: Reports fatigue and Reports lethargy Eyes: Eyes: Denies blurry vision ENT: Reports Normal hearing present Cardiovascular: Cardiovascular: Denies chest pain Respiratory: Respiratory: Reports dyspnea on exertion Gastrointestinal: Gastrointestinal: Reports hematochezia Genitourinary: Comments: suprapubic catheter Musculoskeletal: Musculoskeletal: Denies myalgias Integumentary/Breasts: Skin/Breast: Denies rash Neurologic: Denies confusion Psychiatric: Psychiatric: Denies behavioral changes [facility] Past Medical History Medical History (Updated 05/12/22 @ 14:32 by Kevin Campbell MD) Acute blood loss anemia Atrophy of left kidney Expressive aphasia History of gastroscopy 08/18/09, 09/09/09, with structure Hypertension Iron (Fe) deficiency anemia Ischemic cerebrovascular accident (CVA) (08/14/20) Treated with tPA and thrombectomy Rectal bleeding Urinary incontinence Vaginal delivery 1960, , full term, female, 7#10 1969, , full term, female, 7#10 Surgical History Surgical History (Updated 05/12/22 @ 14:32 by Kevin Campbell MD) H/O rectal polypectomy 11/13/08, 08/27/03 H/O right heart catheterization 12/17/08 unsure if lt or rt History of breast biopsy 06/09/10, stereotactic, biopsy rt breast History of cholecystectomy 05/09/09 History of endoscopy 12/16/09, 02/10/10, 08/25/10, 04/26/18 History of esophagogastroduodenoscopy (EGD) 04/25/12, with upper GI History of eye surgery 11/05/14 cataract right eye, 11/20/14 cataract left eye, 07/28/18 bilateral removal of scar tissue 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on of small bowel obstruction, release of internal hernia History of meniscectomy of left kne
[2022-05-12] MEDS: EPINEPHrine INJ 1 MG/10 ML SYRINGE 0.8 MG XX (14:56)
--- NOTE | 2022-05-12 15:17 | SUR.PHASEII ---
BP of 207/[address] Steel. Per give a one time dose of 10mg of hydralazine.
[2022-05-12] MEDS: hydrALAZINE HCL 20 MG/ML VIAL 10 MG IV PUSH (15:23)
[2022-05-12] MEDS: LIDOCAINE 5% PATCH 1 PATCH TRANSDERM ×2 (16:44→17:35)
[2022-05-12 17:07] LABS: Hematocrit 28.4 % (37.0-47.0); Hemoglobin 9.5 g/dL (12.0-15.0); Mean Corpuscular HGB Conc 33.5 g/dl (32-36); Mean Corpuscular Hemoglobin 30.6 pg (26-34); Mean Corpuscular Volume 91.6 fl (80-100); Mean Platelet Volume 10.6 fl (7.4-10.4); Platelet Count Result 157 k/mm3 (150-375); Red Cell Distribution Width 14.4 % (11.5-14.5); White Blood Count 9.5 K/mm3 (4.5-10.0)
[2022-05-13] VITALS (16 sets, daily range): BP systolic 100–127; BP diastolic 44–81; PULSE 65–88; RESP 14–21; TEMP 36.3–37; O2SAT 95–100
[2022-05-13 00:23] LABS: IFOB Positive Control Positive; Immunochemical Fecal Occult Bl Positive (N)
[2022-05-13 04:28] LABS: Basophils Percent Auto 0.6 % (0.2-1.2); Eosinophils Absolute Auto 0.1 K/mm3 (0-0.3); Eosinophils Percent Auto 0.9 % (0-4.4); Hematocrit 21.3 % (37.0-47.0); Hemoglobin 7.1 g/dL (12.0-15.0); Immature Granulocyte Absolute 0.03 K/mm3 (0.00-0.031); Immature Granulocyte Percent A 0.5 % (0-0.5); Lymphocytes Absolute Auto 1.64 K/mm3 (0.9-3.2); Lymphocytes Percent Auto 25.9 % (18.3-44.2); Mean Corpuscular HGB Conc 33.3 g/dl (32-36); Mean Corpuscular Hemoglobin 31.1 pg (26-34); Mean Corpuscular Volume 93.4 fl (80-100); Mean Platelet Volume 10.5 fl (7.4-10.4); Monocytes Absolute Auto 0.5 K/mm3 (0.1-0.6); Monocytes Percent Auto 7.1 % (2.6-8.5); Neutrophils Absolute Auto 4.1 K/mm3 (1.3-6.7); Platelet Count Result 114 k/mm3 (150-375); Red Blood Count 2.28 M/mm3 (4.2-5.4); Red Cell Distribution Width 14.7 % (11.5-14.5); White Blood Count 6.3 K/mm3 (4.5-10.0)
[2022-05-13 04:41] LABS: Alanine Aminotransferase 41 U/L (6-35); Albumin Level 2.5 g/dL (3.5-5.1); Alkaline Phosphatase 40 U/L (38-126); Anion Gap 2 mmol/L (8-16); Aspartate Amino Transferase 26 U/L (14-36); Bilirubin,Total 0.8 mg/dL (0.2-1.3); Blood Urea Nitrogen 39 mg/dL (7-17); Calcium 7.7 mg/dL (8.4-10.2); Carbon Dioxide 20 mmol/L (22-30); Chloride 113 mmol/L (98-107); Estimated CRCL calculation 26 ml/min; Estimated Glomerular Filt Rate 43; Glucose 92 mg/dL (65-110); INR 1.4; Lipase 198 U/L (23-300); Magnesium 1.7 mg/dL (1.6-2.3); Phosphorus 3.7 mg/dL (2.5-4.5); Potassium 4.3 mmol/L (3.4-5.0); Prothrombin Time 16.5 Seconds (11.1-14.7); Sodium 135 mmol/L (137-145)
[2022-05-13 04:42] LABS: Partial Thromboplastin Time 35.4 SECONDS (22.3-36.8)
[2022-05-13 04:45] LABS: Lactic Acid Reflex < 0.5 mmol/L (0.7-2.0)
[2022-05-13] MEDS: SODIUM CHLORIDE 0.9% IV 250 ML 30 ML IV CONT (08:06)
--- NOTE | 2022-05-13 08:14 | WPDINTPN ---
Progress Note: A&P Assessment and Plan (1) GI bleed: Code(s): K92.2 - Gastrointestinal hemorrhage, unspecified Status: Acute Assessment and Plan: Patient with bright red blood per rectum, according to the daughter she has had this issue last year but was not as severe. She did get a colonoscopy at that time but it was inconclusive. -05/12: patient had multiple bloody bowel movements on this admission, dropped her hemoglobin to 6.1 -05/12 received total of 3 units of packed RBCs, -continue Protonix IV Q12H - appreciate GI evaluation -05/12: upper endoscopy revealed - source of active bleeding from ulcer at gastrojejunal anastomosis treated with gold probe and epinephrine injection -05/12: nuclear med GI bleeding scan was negative - on clear liquid diet (2) Anemia: Qualifiers: Anemia type: unspecified type Qualified Code(s): D64.9 - Anemia, unspecified Code(s): D64.9 - Anemia, unspecified Status: Acute Assessment and Plan: As above Stool for occult blood was positive - 05/13: patient did drop her hemoglobin this morning to 7.1 from 9.5 yesterday, will transfuse 1 unit of packed RBCs - will monitor H&H and transfuse as needed (3) Hypertension: Qualifiers: Hypertension type: primary hypertension Qualified Code(s): I10 - Essential (primary) hypertension Code(s): I10 - Essential (primary) hypertension Status: Acute Assessment and Plan: hold all antihypertensives (4) Expressive aphasia: Code(s): R47.01 - Aphasia Status: Acute Assessment and Plan: Patient has had a history of CVA with expressive aphasia -hold all anticoagulation (5) Acute kidney injury: Code(s): N17.9 - Acute kidney failure, unspecified Status: Acute Assessment and Plan: Patient with acute kidney injury likely related to hypovolemi -patient has a history of atrophic left kidney -urine output has been adequate -creatinine improving, almost at her baseline -continue to monitor urine output, renal function electrolytes Plan DVT prophylaxis: SCDs Stress ulcer prophylaxis: Protonix IV q.12 hours Nutrition: clear liquid diet Code Status: Full code Critical Care Time Spent: 33 minutes Discussed with patient and her daughter and updated them with patient's condition and plan of care. I spent with the GI physician is going to obtain a nuclear med bleeding scan, also will prepare her for endoscopy and colonoscopy. The are also aware that the patient is going to receive 2 units of packed RBCs, and will follow hemoglobin levels Due to a high probability of clinically significant, life threatening deterioration, the patient required my highest level of preparedness to intervene emergently and I personally spent this critical care time directly and personally managing the patient. This critical care time included obtaining a history; examining the patient; pulse oximetry; ordering and review of studies; arranging urgent treatment with development of a management plan; evaluation of patient's response to treatment; frequent reassessment; and discussions with other providers. It was exclusive of separately billable procedures and treating other patients and teaching time. Please see Assessment and Plan section and the rest of the note for further information on patient assessment and treatment This dictation may have been done utilizing a voice recognition system. Attempts have been made to correct errors. However, there may be uncorrected grammatical, spelling, and recognitions errors present. Subjective Date/time seen: 05/13/22 08:14 Interval history: Reason for consult: Bright red blood per rectum, severe anemia, syncope - 05/12/2022: endoscopy showed source of active bleeding from ulcer at gastrojejunal anastomosis treated with gold probe and epinephrine injection 05/13/2022: Patient seen and examined the ICU, no mobility bowel move
[2022-05-13] MEDS: LIDOCAINE 5% PATCH 1 PATCH TRANSDERM ×2 (08:22)
[2022-05-13] MEDS: levETIRAcetam 1000MG/NACL100ML 1,000 MG/100 ML BAG 400 MG IVPB ×2 (08:32→20:20)
[2022-05-13] MEDS: PANTOPRAZOLE SODIUM IV 40 MG VIAL IV PUSH ×2 (08:33→20:20)
[2022-05-13 13:12] LABS: Hematocrit 24.9 % (37.0-47.0); Hemoglobin 8.1 g/dL (12.0-15.0)
--- NOTE | 2022-05-13 15:50 | WPDGIPROGNO ---
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 Status: Acute Assessment and Plan: treated endoscopically continue with iv protonix bid advance diet as tolerated (2) Acute blood loss anemia: Code(s): D62 - Acute posthemorrhagic anemia Status: Acute Assessment and Plan: monitor for more signs of bleeding trend h/h (3) History of gastric bypass: Code(s): Z98.84 - Bariatric surgery status Status: Acute (4) Expressive aphasia: Code(s): R47.01 - Aphasia Status: Acute Subjective Date/time seen: 05/13/22 15:50 Interval history: egd showed active bleeding from gastrojejunal anastomosis ulcer treated with gold probe and epi no more active bleeding but required more blood she is feeling better Review of Systems Review of Systems: All systems reviewed & are unremarkable except as noted in HPI and below Exam Const: General: no acute distress Other: elderly resting HENMT: Face/Nose/Sinus: Normal nares present Eyes: General: appearance normal, both eyes and all related structures Neck: Neck: no JVD Resp: Auscultation: clear to auscultation bilaterally Cardio: Rate: regular rate Rhythm: regular rhythm GI: Inspection: non-distended GI Palp: Yes Soft to palpation, No Tenderness to palpation present (GI) and No Guarding due to palpation present (GI) Urinary Catheter: Urinary Catheter: other (suprapubic catheter) Skin: General skin exam: normal color Neuro: Speech: normal speech Extrem: General: normal to inspection Psych: Mental Status: mental status grossly normal Objective Data Vital Signs Vital Signs: Vital Signs - 24 hr 05/12/22 16:00 05/12/22 16:00 05/12/22 17:00 Temperature 98 F 97.6 F Pulse Rate 99 101 H 94 Respiratory Rate 22 H 18 Blood Pressure 113/65 160/71 H Pulse Oximetry 100 100 Oxygen Delivery 05/12/22 18:00 05/12/22 20:00 05/12/22 20:00 Temperature 98 F 98 F Pulse Rate 99 72 78 Respiratory Rate 22 H 22 H Blood Pressure 120/65 103/77 Pulse Oximetry 100 96 Oxygen Delivery 05/12/22 22:00 05/13/22 00:00 05/13/22 02:00 Temperature 97.8 F Pulse Rate 81 75 88 Respiratory Rate 20 20 20 Blood Pressure 105/71 100/77 103/73 Pulse Oximetry 96 96 96 Oxygen Delivery 05/13/22 00:00 05/13/22 03:52 05/13/22 05:41 Temperature 98.1 F Pulse Rate 75 82 68 Respiratory Rate 20 14 Blood Pressure 115/65 103/53 L Pulse Oximetry 95 100 Oxygen Delivery 05/13/22 07:57 05/13/22 08:00 05/13/22 08:00 Temperature 97.5 F L 98.0 F Pulse Rate 75 68 Respiratory Rate 18 15 Blood Pressure 122/81 108/67 Pulse Oximetry 100 99 Oxygen Delivery Room Air 05/13/22 08:00 05/13/22 09:15 05/13/22 09:54 Temperature 97.3 F L 97.7 F Pulse Rate 70 81 67 Respiratory Rate 17 18 Blood Pressure 109/64 116/60 Pulse Oximetry 100 95 Oxygen Delivery 05/13/22 10:00 05/13/22 12:00 05/13/22 12:00 Temperature 97.8 F 98.1 F Pulse Rate 78 84 78 Respiratory Rate 18 20 Blood Pressure 127/75 104/58 L Pulse Oximetry 98 100 Oxygen Delivery 05/13/22 12:00 05/13/22 14:00 Temperature 98.6 F Pulse Rate 86 Respiratory Rate 18 Blood Pressure 124/65 Pulse Oximetry 99 Oxygen Delivery Room Air Intake/Output Intake/Output: Intake & Output 05/10/22 05/11/22 05/12/22 05/13/22 23:59 23:59 23:59 23:59 Intake Total 1660 1960 1483 Output Total 90 1275 1175 Balance 1570 685 308 Meds/Results Medications: Active Medications Generic Name Dose Route Start Last Admin Trade Name Freq PRN Reason Stop Dose Admin Ascorbic Acid 500 mg 05/12/22 09:00 Ascorbic Acid 500 Mg Tablet PO DAILY [facility] Aspirin 81 mg 05/12/22 09:00 Aspirin 81 Mg Chewable Tablet PO DAILY [facility]AD[facility] Atorvastatin Calcium 80 mg 05/11/22 21:00 05/11/22 21:12 Atorvastatin 40 Mg Ta
[2022-05-14] VITALS (9 sets, daily range): BP systolic 102–138; BP diastolic 53–83; PULSE 63–85; RESP 14–19; TEMP 36.6–37.2; O2SAT 97–100
--- NOTE | 2022-05-14 07:48 | WPDGIPROGNO ---
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 Status: Acute Assessment and Plan: treated endoscopically, bleeding was controlled continue with iv protonix bid, will need longterm on discharge tolerating diet consider to repeat another EGD in 3 months to assess healing (2) Acute blood loss anemia: Code(s): D62 - Acute posthemorrhagic anemia Status: Acute Assessment and Plan: no more obvious signs of bleeding trend h/h (3) History of gastric bypass: Code(s): Z98.84 - Bariatric surgery status Status: Acute (4) Expressive aphasia: Code(s): R47.01 - Aphasia Status: Acute Subjective Date/time seen: 05/14/22 07:48 Interval history: doing well, no more signs of bleeding Review of Systems Review of Systems: All systems reviewed & are unremarkable except as noted in HPI and below Exam Const: General: comfortable and no acute distress HENMT: Face/Nose/Sinus: Normal nares present Eyes: General: appearance normal, both eyes and all related structures Neck: Neck: no JVD Resp: Auscultation: clear to auscultation bilaterally Cardio: Rate: regular rate Rhythm: regular rhythm GI: Inspection: non-distended GI Palp: Yes Soft to palpation, No Tenderness to palpation present (GI) and No Guarding due to palpation present (GI) Urinary Catheter: Urinary Catheter: other (suprapubic catheter) Skin: General skin exam: normal color Neuro: Speech: normal speech Extrem: General: normal to inspection Psych: Mental Status: mental status grossly normal Objective Data Vital Signs Vital Signs: Vital Signs - 24 hr 05/13/22 07:57 05/13/22 08:00 05/13/22 08:00 Temperature 97.5 F L 98.0 F Pulse Rate 75 68 Respiratory Rate 18 15 Blood Pressure 122/81 108/67 Pulse Oximetry 100 99 Oxygen Delivery Room Air 05/13/22 08:00 05/13/22 09:15 05/13/22 09:54 Temperature 97.3 F L 97.7 F Pulse Rate 70 81 67 Respiratory Rate 17 18 Blood Pressure 109/64 116/60 Pulse Oximetry 100 95 Oxygen Delivery 05/13/22 10:00 05/13/22 12:00 05/13/22 12:00 Temperature 97.8 F 98.1 F Pulse Rate 78 84 78 Respiratory Rate 18 20 Blood Pressure 127/75 104/58 L Pulse Oximetry 98 100 Oxygen Delivery 05/13/22 12:00 05/13/22 14:00 05/13/22 16:00 Temperature 98.6 F 98.2 F Pulse Rate 86 84 Respiratory Rate 18 20 Blood Pressure 124/65 115/75 Pulse Oximetry 99 99 Oxygen Delivery Room Air 05/13/22 16:00 05/13/22 16:00 05/13/22 18:00 Temperature Pulse Rate 83 75 Respiratory Rate 21 H Blood Pressure 101/44 L Pulse Oximetry 100 Oxygen Delivery Room Air 05/13/22 20:00 05/13/22 20:00 05/13/22 20:00 Temperature 98.2 F Pulse Rate 65 65 65 Respiratory Rate 21 H 21 H Blood Pressure 107/56 L Pulse Oximetry 100 100 Oxygen Delivery Room Air 05/13/22 22:00 05/14/22 00:00 05/14/22 00:00 Temperature 98.9 F Pulse Rate 72 70 70 Respiratory Rate 20 18 Blood Pressure 102/68 110/53 L Pulse Oximetry 98 98 Oxygen Delivery 05/14/22 00:00 05/14/22 02:00 05/14/22 04:00 Temperature Pulse Rate 70 70 69 Respiratory Rate 18 15 Blood Pressure 123/54 L Pulse Oximetry 98 97 Oxygen Delivery Room Air 05/14/22 04:00 05/14/22 04:00 05/14/22 06:00 Temperature 97.9 F Pulse Rate 69 67 68 Respiratory Rate 15 17 14 Blood Pressure 122/55 L 110/59 L Pulse Oximetry 97 98 98 Oxygen Delivery Room Air 05/13/22 20:01 Temperature Pulse Rate Respiratory Rate Blood Pressure Pulse Oximetry 98 Oxygen Delivery Room Air Intake/Output Intake/Output: Intake & Output 05/11/22 05/12/22 05/13/22 05/14/22 23:59 23:59 23:59 23:59 Intake Total 1660 1960 1723 100 Output Total 90 1275 1575 600 Balance 1570 685 148 -500 Meds/Results Medications: Active Medications Generic Name Dose Rout
[2022-05-14] MEDS: PANTOPRAZOLE SODIUM IV 40 MG VIAL IV PUSH ×2 (08:27→21:47)
[2022-05-14] MEDS: LIDOCAINE 5% PATCH 1 PATCH TRANSDERM ×2 (08:27→08:28)
[2022-05-14] MEDS: levETIRAcetam 1000MG/NACL100ML 1,000 MG/100 ML BAG 400 MG IVPB ×2 (08:29→21:47)
--- NOTE | 2022-05-14 19:42 | PC.NURSE ---
Patient has transferred from ICU to room 240. She is settled into room.
[2022-05-15] VITALS (8 sets, daily range): BP systolic 124–144; BP diastolic 61–69; PULSE 63–74; RESP 16–18; TEMP 37–37.2; O2SAT 97–100
[2022-05-15 05:47] LABS: Basophils Percent Auto 0.8 % (0.2-1.2); Eosinophils Absolute Auto 0.3 K/mm3 (0-0.3); Eosinophils Percent Auto 6.1 % (0-4.4); Hematocrit 25.6 % (37.0-47.0); Hemoglobin 8.7 g/dL (12.0-15.0); Immature Granulocyte Absolute 0.02 K/mm3 (0.00-0.031); Immature Granulocyte Percent A 0.4 % (0-0.5); Immature Platelet Fraction Pct 5.1 % (0.9-11.2); Lymphocytes Percent Auto 29.7 % (18.3-44.2); Mean Corpuscular Hemoglobin 31.5 pg (26-34); Mean Corpuscular Volume 92.8 fl (80-100); Mean Platelet Volume 10.8 fl (7.4-10.4); Monocytes Absolute Auto 0.5 K/mm3 (0.1-0.6); Monocytes Percent Auto 9.5 % (2.6-8.5); Neutrophils Absolute Auto 2.7 K/mm3 (1.3-6.7); Neutrophils Percent Auto 53.5 % (45.5-73.1); Platelet Count Result 144 k/mm3 (150-375); Red Blood Count 2.76 M/mm3 (4.2-5.4); Red Cell Distribution Width 14.2 % (11.5-14.5); White Blood Count 5.1 K/mm3 (4.5-10.0)
--- NOTE | 2022-05-15 09:33 | WPDGIPROGNO ---
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 Nasty moderate ulcer noted at the gastro jejunal junction. History of previous gastric bypass. Plan to continue pantoprazole 40 mg p.o. b.i.d.. Avoid NSAIDs. Loud diet as tolerated at this time. Follow-up EGD with Dr. Schwarz since several months is anticipated. Disposition per primary care service. (2) History of gastric bypass: Code(s): Z98.84 - Bariatric surgery status Status: Acute (3) Expressive aphasia: Code(s): R47.01 - Aphasia Status: Acute Subjective Date/time seen: 05/15/22 09:33 Interval history: Patient alert comfortable this morning. Tolerating diet. Denies abdominal pain. No signs for additional blood loss reported. Review of Systems Review of Systems: Review of systems noncontributory. Exam Narrative: Physical exam reveals patient be alert comfortable at rest. Vital signs stable. HEENT exam unremarkable. Lungs are clear. Heart without murmur. Abdomen bowel sounds present soft nontender. Objective Data Vital Signs Vital Signs: Vital Signs - 24 hr 05/14/22 12:00 05/14/22 12:00 05/14/22 16:00 Temperature 98.2 F Pulse Rate 85 84 63 Respiratory Rate 19 16 Blood Pressure 102/55 L 108/83 Pulse Oximetry 100 100 Oxygen Delivery 05/14/22 16:00 05/14/22 20:00 05/14/22 20:00 Temperature 98.7 F Pulse Rate 65 72 66 Respiratory Rate 16 16 Blood Pressure 138/65 Pulse Oximetry 100 98 Oxygen Delivery Room Air 05/15/22 00:00 05/15/22 00:00 05/15/22 04:00 Temperature 98.6 F Pulse Rate 67 65 68 Respiratory Rate 16 Blood Pressure 124/69 Pulse Oximetry 98 Oxygen Delivery 05/15/22 04:00 05/15/22 08:02 05/15/22 08:00 Temperature 98.9 F Pulse Rate 69 73 Respiratory Rate 16 Blood Pressure 144/67 H Pulse Oximetry 97 98 Oxygen Delivery Room Air Intake/Output Intake/Output: Intake & Output 05/12/22 05/13/22 05/14/2223 23:59 23:59 23:59 23:59 Intake Total 1960 1723 1480 Output Total 5540 8616 9018 700 Balance 685 741 -970 -700 Meds/Results Medications: Active Medications Generic Name Dose Route Start Last Admin Trade Name Magdi PRN Reason Stop Dose Admin Ascorbic Acid 500 mg 05/12/22 09:00 Ascorbic Acid 500 Mg Tablet PO DAILY [facility] Aspirin 81 mg 05/12/22 09:00 Aspirin 81 Mg Chewable Tablet PO DAILY [facility] Atorvastatin Calcium 80 mg 05/11/22 21:00 05/11/22 21:12 Atorvastatin 40 Mg Tablet PO 80 mg HS [facility] Administration Calcium Citrate 1 tablet 05/12/22 09:00 Calcium Citrate 315 Mg/Vitamin D 250 Units Tab PO TID [facility] Carvedilol 12.5 mg 05/12/22 09:00 Carvedilol 12.5 Mg Tablet PO Q12HR [facility] Citalopram Hydrobromide 20 mg 05/12/22 09:00 Citalopram Hydrobromide 20 Mg Tablet PO DAILY [facility] Fish Oil 1 gm 05/12/22 09:00 [place] 3 Polyunsat Fatty Acids 1 Gm Cap PO DAILY [facility] Levetiracetam 1,000 mg in 100 mls @ 400 mls/hr 05/12/22 09:00 05/14/22 22:02 Keppra Iv IVPB 0 mls/hr Q12HR [facility] Infusion Levetiracetam 1,000 mg 05/11/22 21:00 05/11/22 21:16 Levetiracetam 500 Mg Tablet PO 1,000 mg Q12HR [facility] Administration Lidocaine 1 patch 05/12/22 16:20 05/14/22 08:27 Lidocaine 5% Patch TRANSDERM 1 patch DAILY [facility] Administration Lidocaine 1 patch 05/12/22 17:25 05/14/22 08:28 Lidocaine 5% Patch TRANSDERM 1 patch DAILY [facility] Administration Misoprostol 200 mcg 05/12/22 09:00 Misoprostol 200 Mcg Tablet PO DAILY [facility] Multivitamins/Minerals 1 tab 05/12/22 09:00 Multivitamins /C Lutein (Centrum Silver) Tablet *Bkc PO 06/11/22 08:59 DAILY [facility] Ondansetron HCl 4 mg 05/12/22 15:54 Ondansetron Inj 4 Mg/2 Ml Vial I
[2022-05-15] MEDS: levETIRAcetam 1000MG/NACL100ML 1,000 MG/100 ML BAG 400 MG IVPB ×2 (10:04→21:12)
[2022-05-15] MEDS: LIDOCAINE 5% PATCH 1 PATCH TRANSDERM ×2 (10:05→10:14)
[2022-05-15] MEDS: PANTOPRAZOLE SODIUM IV 40 MG VIAL IV PUSH ×2 (10:06→21:12)
--- NOTE | 2022-05-15 11:23 | PM.IMPN ---
Progress Note: A&P Assessment and Plan (1) GI bleed: Code(s): K92.2 - Gastrointestinal hemorrhage, unspecified Status: Acute Assessment and Plan: Patient with bright red blood per rectum, according to the daughter she has had this issue last year but was not as severe. She did get a colonoscopy at that time but it was inconclusive. -05/12: patient had multiple bloody bowel movements on this admission, dropped her hemoglobin to 6.1 -05/12 received total of 3 units of packed RBCs, -continue Protonix IV Q12H - appreciate GI evaluation -05/12: upper endoscopy revealed - source of active bleeding from ulcer at gastrojejunal anastomosis treated with gold probe and epinephrine injection -05/12: nuclear med GI bleeding scan was negative - on clear liquid diet (2) Anemia: Qualifiers: Anemia type: unspecified type Qualified Code(s): D64.9 - Anemia, unspecified Code(s): D64.9 - Anemia, unspecified Status: Acute Assessment and Plan: As above Stool for occult blood was positive - 05/13: patient did drop her hemoglobin this morning to 7.1 from 9.5 yesterday, will transfuse 1 unit of packed RBCs - will monitor H&H and transfuse as needed (3) Hypertension: Qualifiers: Hypertension type: primary hypertension Qualified Code(s): I10 - Essential (primary) hypertension Code(s): I10 - Essential (primary) hypertension Status: Acute Assessment and Plan: hold all antihypertensives (4) Expressive aphasia: Code(s): R47.01 - Aphasia Status: Acute Assessment and Plan: Patient has had a history of CVA with expressive aphasia -hold all anticoagulation (5) Acute kidney injury: Code(s): N17.9 - Acute kidney failure, unspecified Status: Acute Assessment and Plan: Patient with acute kidney injury likely related to hypovolemi -patient has a history of atrophic left kidney -urine output has been adequate -creatinine improving, almost at her baseline -continue to monitor urine output, renal function electrolytes Plan DVT prophylaxis: SCDs Stress ulcer prophylaxis: Protonix IV q.12 hours Nutrition: clear liquid diet Code Status: Full code Critical Care Time Spent: 33 minutes Discussed with patient and her daughter and updated them with patient's condition and plan of care. I spent with the GI physician is going to obtain a nuclear med bleeding scan, also will prepare her for endoscopy and colonoscopy. The are also aware that the patient is going to receive 2 units of packed RBCs, and will follow hemoglobin levels Due to a high probability of clinically significant, life threatening deterioration, the patient required my highest level of preparedness to intervene emergently and I personally spent this critical care time directly and personally managing the patient. This critical care time included obtaining a history; examining the patient; pulse oximetry; ordering and review of studies; arranging urgent treatment with development of a management plan; evaluation of patient's response to treatment; frequent reassessment; and discussions with other providers. It was exclusive of separately billable procedures and treating other patients and teaching time. Please see Assessment and Plan section and the rest of the note for further information on patient assessment and treatment This dictation may have been done utilizing a voice recognition system. Attempts have been made to correct errors. However, there may be uncorrected grammatical, spelling, and recognitions errors present. Subjective Date/time seen: 05/15/22 11:23 No new complaints Exam Narrative: General: Elderly female in no acute distress HEENT:? Pupils are reactive, sclera is clear, moist oral mucosa Neck:? Supple Respiratory:? Clear to auscultation bilaterally with decreased at bases, no wheezing, adequate air entry Cardiac:? S1-S2 is normal, regular rate and rhy
[2022-05-16] VITALS: PULSE 73
[2022-05-16 04:00] VITALS: PULSE 77
[2022-05-16 05:13] VITALS: BP 131/63; PULSE 77; RESP 16; TEMP 37.2; O2SAT 99
[2022-05-16 08:00] VITALS: PULSE 75
[2022-05-16 08:15] LABS: Basophils Percent Auto 0.6 % (0.2-1.2); Eosinophils Absolute Auto 0.2 K/mm3 (0-0.3); Eosinophils Percent Auto 3.4 % (0-4.4); Hematocrit 27.9 % (37.0-47.0); Hemoglobin 9.2 g/dL (12.0-15.0); Lymphocytes Absolute Auto 0.92 K/mm3 (0.9-3.2); Lymphocytes Percent Auto 17.5 % (18.3-44.2); Mean Corpuscular Hemoglobin 31.3 pg (26-34); Mean Corpuscular Volume 94.9 fl (80-100); Mean Platelet Volume 9.8 fl (7.4-10.4); Monocytes Absolute Auto 0.4 K/mm3 (0.1-0.6); Monocytes Percent Auto 8.2 % (2.6-8.5); Neutrophils Absolute Auto 3.7 K/mm3 (1.3-6.7); Neutrophils Percent Auto 70.3 % (45.5-73.1); Platelet Count Result 136 k/mm3 (150-375); Red Blood Count 2.94 M/mm3 (4.2-5.4); White Blood Count 5.3 K/mm3 (4.5-10.0)
[2022-05-16] MEDS: PANTOPRAZOLE SODIUM IV 40 MG VIAL IV PUSH (08:16)
[2022-05-16] MEDS: LIDOCAINE 5% PATCH 1 PATCH TRANSDERM ×2 (08:16)
[2022-05-16] MEDS: levETIRAcetam 1000MG/NACL100ML 1,000 MG/100 ML BAG 400 MG IVPB (08:19)
--- NOTE | 2022-05-16 08:41 | WPDGIPROGNO ---
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 Currently this appears stable. No active bleeding present. Plan to discharge on regular diet. Continue PPI therapy. Avoid NSAIDs. Follow-up EGD with Dr. Chong Daly in 3 months. (2) Acute blood loss anemia: Code(s): D62 - Acute posthemorrhagic anemia Status: Acute Assessment and Plan: Hemoglobin stable no additional bleeding noted. (3) History of gastric bypass: Code(s): Z98.84 - Bariatric surgery status Status: Acute (4) Expressive aphasia: Code(s): R47.01 - Aphasia Status: Acute Subjective Date/time seen: 05/16/22 08:41 Interval history: Patient alert comfortable this morning. Tolerating regular diet with no pain. No obvious bleeding. Review of Systems Review of Systems: Review of systems noncontributory. Exam Narrative: Physical exam reveals patient be alert. Vital signs stable. HEENT exam reveals no icterus. Lungs are clear to auscultation and percussion. Heart is without murmur or extra sounds. Abdomen bowel sounds are present soft nontender with no organomegaly. Objective Data Vital Signs Vital Signs: Vital Signs - 24 hr 05/15/22 10:00 05/15/22 14:24 05/15/22 16:00 Temperature 98.6 F Pulse Rate 63 63 Respiratory Rate 18 Blood Pressure 125/61 Pulse Oximetry 97 Oxygen Delivery Room Air 05/15/22 21:16 05/15/22 20:00 05/15/22 20:00 Temperature 98.8 F Pulse Rate 72 72 74 Respiratory Rate 16 16 Blood Pressure 132/66 Pulse Oximetry 100 100 Oxygen Delivery Room Air 05/16/22 05:13 05/16/22 00:00 05/16/22 04:00 Temperature 98.9 F Pulse Rate 77 73 77 Respiratory Rate 16 Blood Pressure 131/63 Pulse Oximetry 99 Oxygen Delivery Intake/Output Intake/Output: Intake & Output 05/13/22 05/14/22 05/15/22 05/16/22 23:59 23:59 23:59 23:59 Intake Total 1723 1480 1200 150 Output Total 1575 2450 1600 570 Balance 148 -970 -400 -420 Meds/Results Medications: Active Medications Generic Name Dose Route Start Last Admin Trade Name Freq PRN Reason Stop Dose Admin Ascorbic Acid 500 mg 05/12/22 09:00 Ascorbic Acid 500 Mg Tablet PO DAILY [facility] Aspirin 81 mg 05/12/22 09:00 Aspirin 81 Mg Chewable Tablet PO DAILY [facility] Atorvastatin Calcium 80 mg 05/11/22 21:00 05/11/22 21:12 Atorvastatin 40 Mg Tablet PO 80 mg HS [facility] Administration Calcium Citrate 1 tablet 05/12/22 09:00 Calcium Citrate 315 Mg/Vitamin D 250 Units Tab PO TID [facility] Carvedilol 12.5 mg 05/12/22 09:00 Carvedilol 12.5 Mg Tablet PO Q12HR [facility] Citalopram Hydrobromide 20 mg 05/12/22 09:00 Citalopram Hydrobromide 20 Mg Tablet PO DAILY [facility] Fish Oil 1 gm 05/12/22 09:00 [place] 3 Polyunsat Fatty Acids 1 Gm Cap PO DAILY [facility] Levetiracetam 1,000 mg in 100 mls @ 400 mls/hr 05/12/22 09:00 05/16/22 08:19 Keppra Iv IVPB 400 mls/hr Q12HR [facility] Administration Levetiracetam 1,000 mg 05/11/22 21:00 05/11/22 21:16 Levetiracetam 500 Mg Tablet PO 1,000 mg Q12HR [facility] Administration Lidocaine 1 patch 05/12/22 16:20 05/16/22 08:16 Lidocaine 5% Patch TRANSDERM 1 patch DAILY [facility] Administration Lidocaine 1 patch 05/12/22 17:25 05/16/22 08:16 Lidocaine 5% Patch TRANSDERM 1 patch DAILY [facility] Administration Misoprostol 200 mcg 05/12/22 09:00 Misoprostol 200 Mcg Tablet PO DAILY [facility] Multivitamins/Minerals 1 tab 05/12/22 09:00 Multivitamins /C Lutein (Centrum Silver) Tablet *Bkc PO 06/11/22 08:59 DAILY [facility] Ondansetron HCl 4 mg 05/12/22 15:54 Ondansetron Inj 4 Mg/2 Ml Vial IV PUSH Q6H PRN Nausea And Vomiting Pantoprazole Sodiu
--- NOTE | 2022-05-16 11:05 | PM.DS ---
DS: Admitting Diagnosis Discharge Date May 16, 2022 Admitting Diagnosis GI bleed DS: Discharge Diagnosis Discharge Diagnosis (1) GI bleed: Code(s): K92.2 - Gastrointestinal hemorrhage, unspecified Status: Acute Assessment and Plan: PPI b.i.d. on discharge follow-up with GI (2) Anemia: Qualifiers: Anemia type: unspecified type Qualified Code(s): D64.9 - Anemia, unspecified Code(s): D64.9 - Anemia, unspecified Status: Acute Assessment and Plan: As above Stool for occult blood was positive - 05/13: patient did drop her hemoglobin this morning to 7.1 from 9.5 yesterday, will transfuse 1 unit of packed RBCs - will monitor H&H and transfuse as needed (3) Hypertension: Qualifiers: Hypertension type: primary hypertension Qualified Code(s): I10 - Essential (primary) hypertension Code(s): I10 - Essential (primary) hypertension Status: Acute Assessment and Plan: hold all antihypertensives (4) Expressive aphasia: Code(s): R47.01 - Aphasia Status: Acute Assessment and Plan: Patient has had a history of CVA with expressive aphasia -hold all anticoagulation (5) Acute kidney injury: Code(s): N17.9 - Acute kidney failure, unspecified Status: Acute Assessment and Plan: Patient with acute kidney injury likely related to hypovolemi -patient has a history of atrophic left kidney -urine output has been adequate -creatinine improving, almost at her baseline -continue to monitor urine output, renal function electrolytes Plan DVT prophylaxis: SCDs Stress ulcer prophylaxis: Protonix IV q.12 hours Nutrition: clear liquid diet Code Status: Full code Critical Care Time Spent: 33 minutes Discussed with patient and her daughter and updated them with patient's condition and plan of care. I spent with the GI physician is going to obtain a nuclear med bleeding scan, also will prepare her for endoscopy and colonoscopy. The are also aware that the patient is going to receive 2 units of packed RBCs, and will follow hemoglobin levels Due to a high probability of clinically significant, life threatening deterioration, the patient required my highest level of preparedness to intervene emergently and I personally spent this critical care time directly and personally managing the patient. This critical care time included obtaining a history; examining the patient; pulse oximetry; ordering and review of studies; arranging urgent treatment with development of a management plan; evaluation of patient's response to treatment; frequent reassessment; and discussions with other providers. It was exclusive of separately billable procedures and treating other patients and teaching time. Please see Assessment and Plan section and the rest of the note for further information on patient assessment and treatment This dictation may have been done utilizing a voice recognition system. Attempts have been made to correct errors. However, there may be uncorrected grammatical, spelling, and recognitions errors present. DS: Summary Hospital Course Hospital Course: Admitted for anemia and found have GI bleed. Did require transfusion. And having endoscopic procedure performed. Will need to follow-up with GI. Ppi b.i.d. Time Spent with Patient Time attestation: Total time spent providing and/or coordinating discharge services: Exam Narrative: General: Elderly female in no acute distress HEENT:? Pupils are reactive, sclera is clear, moist oral mucosa Neck:? Supple Respiratory:? Clear to auscultation bilaterally with decreased at bases, no wheezing, adequate air entry Cardiac:? S1-S2 is normal, regular rate and rhythm Abdomen:? Soft, nontender, nondistended, suprapubic catheter in place, previous surgical scar noted Extremities:? No edema, palpable pedal pulses Neuro:? Patient is awake, alert, oriented, answers to questions appropriately a
[2022-05-16 12:04] VITALS: PULSE 93
== END 2022-05-16 13:57 | disposition home or self-care (01) | DRG 378 ==
LOC: ANHED 12:11 → ANH2MED 14:59 → ANHICU 05-12 07:49 → ANH2MED 05-14 20:03
PROVIDERS: Emergency Medicine; Internal Medicine; Internal Medicine Gastroenterology; Nurse Practitioner; Admitting Provider Internal Medicine; Emergency Provider Emergency Medicine; PCP Internal Medicine Gastroenterology; Visit Provider Chiropractor
PROC: 0DJ08ZZ Inspection of Upper Intestinal Tract, Via Natural or Artificial Opening Endoscopic (ICD-10-PCS; CPT 43235; principal; 2022-05-12 14:30)
DX: K28.4 Chronic or unspecified gastrojejunal ulcer with hemorrhage (principal); D62 Acute posthemorrhagic anemia; N17.9 Acute kidney failure, unspecified; K44.9 Diaphragmatic hernia without obstruction or gangrene; E86.1 Hypovolemia; I10 Essential (primary) hypertension; R33.8 Other retention of urine; Z20.822 Contact with and (suspected) exposure to COVID-19; E78.5 Hyperlipidemia, unspecified; Z96.653 Presence of artificial knee joint, bilateral; Z90.49 Acquired absence of other specified parts of digestive tract; Z98.84 Bariatric surgery status; Z90.710 Acquired absence of both cervix and uterus; Z98.1 Arthrodesis status; I69.320 Aphasia following cerebral infarction
CPT/HCPCS: 36415; 36430; 71046; 76775; 78278; 80053; 81001; 82274; 82948; 83605; 83690; 83735; 83880; 84100; 84439; 84443; 84480; 84484; 85014; 85018; 85025; 85027; 85055; 85380; 85610; 85730; 86850; 86900; 86901; 86923; 87040; 87081; 87086; 87636; 93005; 96360; 96361; 97110; 97116; 97161; 97165; 99285; A9270; A9560; C9113; G0378; J0171; J0360; J1953; J2405; J2704; J7030; J7050; J7120; P9016

== ENCOUNTER 2022-05-22 16:21 | Emergency (ER) | payer MEDICARE, OTHER, SELFPAY ==
[2022-05-22 16:27] VITALS: BP 131/63; PULSE 66; RESP 16; TEMP 36.3; O2SAT 100
--- NOTE | 2022-05-22 16:33 | ECG_ITS ---
Measurements Intervals [place] Rate: 59 P: 62 UT: 180 QRS: 7 QRSD: 86 T: 31 QT: 453 QTc: 452 Interpretive Statements SINUS BRADYCARDIA BASELINE ARTIFACT NONSPECIFIC ST ABNORMALITY BORDERLINE ECG COMPARED TO ECG 05/11/2022 11:43:42 HEART RATE HAS DECREASED Electronically Signed On 05-22-2022 17:05:04 GLASS CALIBRATOR by Kilo Wallace M.D.
[2022-05-22 16:44] LABS: Appearance Urine Clear (Clear); Basophils Absolute Auto 0.1 K/mm3 (0.0-0.1); Bilirubin Urine Negative (Negative); Blood Urine Trace-intact (Negative); Color Urine Yellow (Yellow); Eosinophils Absolute Auto 0.2 K/mm3 (0-0.3); Glucose Urine UA Negative (Negative); Hematocrit 28.1 % (37.0-47.0); Hemoglobin 8.8 g/dL (12.0-15.0); Immature Granulocyte Absolute 0.01 K/mm3 (0.00-0.031); Immature Granulocyte Percent A 0.2 % (0-0.5); Ketones Urine Negative (Negative); Leukocyte Esterase Ur 2+ LEU/UL (Negative); Lymphocytes Absolute Auto 1.41 K/mm3 (0.9-3.2); Lymphocytes Percent Auto 28.3 % (18.3-44.2); Mean Corpuscular HGB Conc 31.3 g/dl (32-36); Mean Corpuscular Volume 98.9 fl (80-100); Mean Platelet Volume 9.8 fl (7.4-10.4); Monocytes Absolute Auto 0.7 K/mm3 (0.1-0.6); Monocytes Percent Auto 13.6 % (2.6-8.5); Neutrophils Absolute Auto 2.7 K/mm3 (1.3-6.7); Neutrophils Percent Auto 53.9 % (45.5-73.1); Nitrate Urine Negative (Negative); Platelet Count Result 254 k/mm3 (150-375); Protein Urine Negative (Negative); Red Blood Count 2.84 M/mm3 (4.2-5.4); Red Cell Distribution Width 13.6 % (11.5-14.5); Urobilinogen Urine 0.2 mg/dL (<2.0); pH Urine 7.5 (5.0-9.0)
[2022-05-22 16:47] LABS: Bacteria Urine Trace /hpf; WBC Urine 0-3 /hpf
[2022-05-22 16:54] LABS: INR 1.1; Prothrombin Time 14.1 Seconds (11.1-14.7)
[2022-05-22 16:55] LABS: Partial Thromboplastin Time 26.2 SECONDS (22.3-36.8)
[2022-05-22 17:00] LABS: Add Urine Microscopic? YES
[2022-05-22 17:02] LABS: Lactic Acid Reflex 0.7 mmol/L (0.7-2.0)
[2022-05-22 17:03] LABS: Alanine Aminotransferase 26 U/L (6-35); Alkaline Phosphatase 56 U/L (38-126); Anion Gap 1 mmol/L (8-16); Aspartate Amino Transferase 25 U/L (14-36); Bilirubin,Total 0.3 mg/dL (0.2-1.3); Blood Urea Nitrogen 23 mg/dL (7-17); Calcium 7.9 mg/dL (8.4-10.2); Carbon Dioxide 28 mmol/L (22-30); Chloride 108 mmol/L (98-107); Estimated Glomerular Filt Rate 48; Glucose 67 mg/dL (65-110); Potassium 4.2 mmol/L (3.4-5.0); Sodium 137 mmol/L (137-145)
[2022-05-22 17:08] VITALS: BP 123/66; PULSE 60; RESP 20; O2SAT 100
[2022-05-22 17:09] VITALS: PULSE 57
--- NOTE | 2022-05-22 18:20 | ED.AMS ---
HPI - Altered Mental Status General Chief Complaint: Altered Mental Status Stated Complaint: AMS Time Seen by Provider: 05/22/22 16:35 History of Present Illness HPI narrative: Patient is an 82-year-old female who presents ER with an episode of confusion. Family reports patient was sitting on the couch staring off. She began to normalize when EMS arrived. No obvious seizure activity. No recent fevers or chills or sweats. Patient was recently hospitalized due to a bleeding ulcer at the antrum anastomotic site of her previous gastric bypass. She has had no additional bloody stools. No vomiting. No fevers or chills or sweats. Patient has mild expressive aphasia. No additional complaints. Related Data Home Medications Medication Instructions Recorded Confirmed ascorbic acid (vitamin C) 500 mg 500 mg PO DAILY 11/05/19 05/11/22 capsule calcium citrate 315 mg-vitamin D3 1 tablet PO TID 11/05/19 05/11/22 5 mcg (200 unit) tablet (Calcium Citrate + D) mecobalamin (vitamin B12) 1,000 1,000 mcg sublingual DAILY 11/05/19 05/11/22 mcg disintegrating tablet,sublingual misoprostol 200 mcg tablet 200 mcg PO DAILY 11/05/19 05/11/22 multivit with min-folic 1 tablet PO DAILY 11/05/19 05/11/22 acid-lutein 400 mcg-250 mcg chewable tablet (Centrum Silver) omega 9-nzq-cek-fish oil 1,200 mg 1 cap PO DAILY 11/05/19 05/11/22 (144 mg-216 mg) capsule (Fish Oil) vitamin B complex (B 1 tablet PO DAILY 11/05/19 05/11/22 Complex-Vitamin B12 tablet) vitamin E (dl, acetate) 90 mg (200 200 unit PO DAILY 11/05/19 05/11/22 unit) capsule atorvastatin 80 mg tablet 80 mg PO HS 08/29/20 05/11/22 aspirin 81 mg chewable tablet 81 mg PO DAILY 05/11/22 05/11/22 carvedilol 12.5 mg tablet (Coreg) 12.5 mg PO BID 05/11/22 05/11/22 cephalexin 500 mg capsule 500 mg PO DAILY 05/11/22 05/11/22 citalopram 20 mg tablet 20 mg PO DAILY 05/11/22 05/11/22 levetiracetam 1,000 mg tablet 1,000 mg PO BID 05/11/22 05/11/22 sacubitril 24 mg-valsartan 26 mg 1 tablet PO BID 05/11/22 05/11/22 tablet (Entresto) Allergies Allergy/AdvReac Type Severity Reaction Status Date / Time naproxen Allergy Severe cardiac Verified 05/11/22 15:32 arrest NSAIDS (Non-Steroidal Allergy Severe cardiac Verified 05/11/22 15:32 Anti-Inflamma arrest morphine Allergy Mild unknown Verified 05/11/22 15:32 Review of Systems Respiratory: Respiratory: Denies cough and Denies dyspnea Gastrointestinal: Gastrointestinal: Denies abdominal pain, Denies diarrhea, Denies nausea and Denies vomiting Comments: No blood in stool Genitourinary: Genitourinary: Denies nocturia and Denies dysuria Neurologic: Reports confusion, Denies syncope, Denies focal weakness and Denies tingling Comments: Expressive aphasia PMFSH Past Medical History Medical History (Updated 05/22/22 @ 18:22 by Erik Valentino MD) Acute blood loss anemia Atrophy of left kidney Expressive aphasia Gastrojejunal ulcer with hemorrhage History of gastroscopy 08/18/09, 09/09/09, with structure Hypertension Iron (Fe) deficiency anemia Ischemic cerebrovascular accident (CVA) (08/14/20) Treated with tPA and thrombectomy Rectal bleeding Urinary incontinence Vaginal delivery 1960, , full term, female, 7#10 1969, , full term, female, 7#10 Surgical History Surgical History (Updated 05/12/22 @ 14:32 by Kevin Campbell MD) H/O rectal polypectomy 11/13/08, 08/27/03 H/O right heart catheterization 12/17/08 unsure if lt or rt History of breast biopsy 06/09/10, stereotactic, biopsy rt breast History of cholecystectomy 05/09/09 History of endoscopy 12/16/09, 02/10/10, 08/25/10, 04/26/18 History of esophagogastroduodenoscopy (EGD) 04/25/12, with upper GI History of eye surgery 11/05/14 cataract right eye, 11/20/14 cataract left eye, 07/28/18 bilateral removal of scar tissue 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 History of hysterectomy 07/1982 total History of knee r
[2022-05-22 18:56] VITALS: BP 130/71; PULSE 68; RESP 18; O2SAT 100
== END 2022-05-22 18:57 | disposition home or self-care (01) ==
PROVIDERS: Emergency Medicine; Emergency Provider Emergency Medicine; PCP Internal Medicine Gastroenterology
DX: R41.0 Disorientation, unspecified (principal); I10 Essential (primary) hypertension; D50.9 Iron deficiency anemia, unspecified; N26.1 Atrophy of kidney (terminal); R47.01 Aphasia; Z96.653 Presence of artificial knee joint, bilateral; Z98.1 Arthrodesis status; Z98.84 Bariatric surgery status; Z90.710 Acquired absence of both cervix and uterus; Z86.73 Personal history of transient ischemic attack (TIA), and cerebral infarction without residual deficits; Z87.19 Personal history of other diseases of the digestive system; Z79.82 Long term (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; R00.1 Bradycardia, unspecified; R94.31 Abnormal electrocardiogram [ECG] [EKG]
CPT/HCPCS: 36415; 80053; 81001; 83605; 85025; 85610; 85730; 93005; 99284

== ENCOUNTER 2022-06-02 10:48 | Emergency (ER) | payer MEDICARE, OTHER, SELFPAY ==
--- NOTE | ~2022-06-02 | XR_ITS ---
XR chest 2V 06/02/2022 12:52 Indication: Shortness of breath Procedure: 2 view chest Comparison: 05/11/2022 Findings: Cardiomegaly. There is atherosclerosis and ectasia of the aorta. No focal air space disease , pulmonary edema, pleural effusion or suspected pneumothorax. There are surgical changes in the left upper abdomen. Impression: 1: Cardiomegaly. Reviewed, dictated and finalized at location [facility]. [employer] MANUFACTURING CONSULTANT Impression: 1: Cardiomegaly.
[2022-06-02 11:39] VITALS: BP 159/62; PULSE 70; RESP 18; TEMP 36.6; O2SAT 100
--- NOTE | 2022-06-02 12:25 | ECG_ITS ---
Measurements Intervals [place] Rate: 62 P: 66 [place]: 156 QRS: 54 QRSD: 76 T: 61 QT: 430 QTc: 438 Interpretive Statements SINUS RHYTHM BORDERLINE T WAVE ABNORMALITY- ANTERIOR LEADS BASELINE ARTIFACT- AVR, AVL, AVF, V3, V6 BORDERLINE ECG COMPARED TO ECG 05/22/2022 16:33:32 SINUS RHYTHM NOW PRESENT Electronically Signed On 06-02-2022 12:44:24 PHYSIOLOGIST by Cristian Joya D.O.
[2022-06-02 12:44] LABS: Basophils Percent Auto 0.5 % (0.2-1.2); Eosinophils Absolute Auto 0.1 K/mm3 (0-0.3); Eosinophils Percent Auto 1.8 % (0-4.4); Hematocrit 33.7 % (37.0-47.0); Hemoglobin 10.7 g/dL (12.0-15.0); Immature Granulocyte Absolute 0.02 K/mm3 (0.00-0.031); Immature Granulocyte Percent A 0.3 % (0-0.5); Lymphocytes Absolute Auto 1.45 K/mm3 (0.9-3.2); Lymphocytes Percent Auto 23.7 % (18.3-44.2); Mean Corpuscular HGB Conc 31.8 g/dl (32-36); Mean Corpuscular Hemoglobin 30.7 pg (26-34); Mean Corpuscular Volume 96.8 fl (80-100); Mean Platelet Volume 9.7 fl (7.4-10.4); Monocytes Absolute Auto 0.4 K/mm3 (0.1-0.6); Monocytes Percent Auto 6.2 % (2.6-8.5); Neutrophils Absolute Auto 4.1 K/mm3 (1.3-6.7); Neutrophils Percent Auto 67.5 % (45.5-73.1); Platelet Count Result 244 k/mm3 (150-375); Red Blood Count 3.48 M/mm3 (4.2-5.4); Red Cell Distribution Width 13.5 % (11.5-14.5); White Blood Count 6.1 K/mm3 (4.5-10.0)
[2022-06-02 12:59] LABS: Alanine Aminotransferase 28 U/L (6-35); Albumin Level 3.8 g/dL (3.5-5.1); Alkaline Phosphatase 60 U/L (38-126); Anion Gap 5 mmol/L (8-16); Aspartate Amino Transferase 22 U/L (14-36); Bilirubin,Total 0.5 mg/dL (0.2-1.3); Blood Urea Nitrogen 20 mg/dL (7-17); Calcium 8.7 mg/dL (8.4-10.2); Carbon Dioxide 25 mmol/L (22-30); Chloride 104 mmol/L (98-107); Estimated Glomerular Filt Rate 48; Glucose 141 mg/dL (65-110); Potassium 4.3 mmol/L (3.4-5.0); Sodium 134 mmol/L (137-145)
[2022-06-02 13:26] VITALS: PULSE 87
--- NOTE | 2022-06-02 14:18 | ED.GENADULT ---
HPI - General Adult General Chief complaint: Shortness of Breath/Dyspnea Stated complaint: SOB Time Seen by Provider: 06/02/22 14:06 History of Present Illness HPI narrative: Patient is an 82-year-old female with a history of prior stroke w/ residual seizures and expressive aphasia, hypertension, hyperlipidemia, recent GI bleed presenting with an episode of confusion. Patient's partner is at bedside and he states that the patient was doing strange things this morning. States that she tried to take down her pants randomly. States he is concerned that she had a seizure because she has had seizures related to a prior stroke. Denies any seizure activity. Patient denies any of these complaints. She states that she knows when she has seizures and she did not have one this morning. No bladder or bowel incontinence or tongue biting. Triage note states that the patient is coming in with shortness of breath. The patient states that she has not short of breath. In fact, her breathing feels better than it has in a long time. 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 Currently, the patient denies any complaints whatsoever and she would like to go home. Related Data Home Medications Medication Instructions Recorded Confirmed ascorbic acid (vitamin C) 500 mg 500 mg PO DAILY 11/05/19 05/11/22 capsule calcium citrate 315 mg-vitamin D3 1 tablet PO TID 11/05/19 05/11/22 5 mcg (200 unit) tablet (Calcium Citrate + D) mecobalamin (vitamin B12) 1,000 1,000 mcg sublingual DAILY 11/05/19 05/11/22 mcg disintegrating tablet,sublingual misoprostol 200 mcg tablet 200 mcg PO DAILY 11/05/19 05/11/22 multivit with min-folic 1 tablet PO DAILY 11/05/19 05/11/22 acid-lutein 400 mcg-250 mcg chewable tablet (Centrum Silver) omega 7-dek-umf-fish oil 1,200 mg 1 cap PO DAILY 11/05/19 05/11/22 (144 mg-216 mg) capsule (Fish Oil) vitamin B complex (B 1 tablet PO DAILY 11/05/19 05/11/22 Complex-Vitamin B12 tablet) vitamin E (dl, acetate) 90 mg (200 200 unit PO DAILY 11/05/19 05/11/22 unit) capsule atorvastatin 80 mg tablet 80 mg PO HS 08/29/20 05/11/22 aspirin 81 mg chewable tablet 81 mg PO DAILY 05/11/22 05/11/22 carvedilol 12.5 mg tablet (Coreg) 12.5 mg PO BID 05/11/22 05/11/22 cephalexin 500 mg capsule 500 mg PO DAILY 05/11/22 05/11/22 citalopram 20 mg tablet 20 mg PO DAILY 05/11/22 05/11/22 levetiracetam 1,000 mg tablet 1,000 mg PO BID 05/11/22 05/11/22 sacubitril 24 mg-valsartan 26 mg 1 tablet PO BID 05/11/22 05/11/22 tablet (Entresto) Allergies Allergy/AdvReac Type Severity Reaction Status Date / Time naproxen Allergy Severe cardiac Verified 06/02/22 13:27 arrest NSAIDS (Non-Steroidal Allergy Severe cardiac Verified 06/02/22 13:27 Anti-Inflamma arrest morphine Allergy Mild unknown Verified 06/02/22 13:27 Review of Systems Review of Systems: All systems reviewed & are unremarkable except as noted in HPI and below PMFSH Past Medical History Medical History Acute blood loss anemia Atrophy of left kidney Expressive aphasia Gastrojejunal ulcer with hemorrhage History of gastroscopy 08/18/09, 09/09/09, with structure Hypertension Iron (Fe) deficiency anemia Ischemic cerebrovascular accident (CVA) (08/14/20) Treated with tPA and thrombectomy Rectal bleeding Urinary incontinence Vaginal delivery 1960, , full term, female, 7#10 1969, , full term, female, 7#10 Surgical History Surgical History H/O rectal polypectomy 11/13/08, 08/27/03 H/O right heart catheterization 12/17/08 unsure if lt or rt History of breast biopsy 06/09/10, stereotactic, biopsy rt breast History of cholecystectomy 05/09/09 History of endoscopy 12/16/09, 02/10/10, 08/25/10, 04/26/18 History of esophagogastroduodenoscopy (EGD)
[2022-06-02 15:48] VITALS: BP 129/90; PULSE 60; RESP 20; O2SAT 100
== END 2022-06-02 15:49 | disposition home or self-care (01) ==
PROVIDERS: Emergency Medicine; Emergency Provider Emergency Medicine; PCP Internal Medicine Gastroenterology
DX: R41.0 Disorientation, unspecified (principal); I10 Essential (primary) hypertension; D64.9 Anemia, unspecified
CPT/HCPCS: 36415; 71046; 80053; 85025; 93005; 99284

== ENCOUNTER 2022-08-18 12:30 | Outpatient (RCR) | payer MEDICARE, OTHER, SELFPAY ==
--- NOTE | 2022-07-20 15:14 | STOPEVAL1 ---
Assessment and note entered by Annie Payan, COVER INSPECTOR Evaluation Information Assessment Status Evaluation Diagnosis Aphasia/Apraxia Onset 2020 Subjective Information The patient reports that she feels that she has a stuttering problem, that she has a lapse in my words and I can't get them out. She expressed that it's very flustrating. Patient reported that she had had Speech Therapy in the past and reported that the therapist just left me go, that she couldn't do anything else for me. She reports that she feels that her ability to think of words and to produce them has deteriorated. She stated that she gets bouts where she can't speak at all, and other times I do really well. She cannot describe why sometimes are worse than others; stated that she can be good in the morning and other times good in the evening. Expresses frustration that sometimes she wants to say something special and just can't get it. Reported Pain Level Pain Score 0: Self Report Assessment ST Clinical Summary Speech and Language Evaluation This patient was seen for a Speech and Language Evaluation and expressed frustration with current speech/language skills. The patient was seen at this facility in the past and was discharged after reaching maximum potential at that time. Patient indicated that she felt her ability to communicate had deteriorated since discharge from Speech Therapy and she is desiring direct Speech Therapy to assist with improving her ability to verbally communicate. Today the patient was noted to have mild-moderate auditory comprehension deficit characterized as moderately reduced ability to comprehend complex information and mildly reduced ability to produce certain sounds and words; most notable hesitancy was observed with /h,w/ sounds in the initial position of words. Additionally, intelligibility reduced as length and complexity of words increased. 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 Audible/ visual searching and posturing noted on several words including words with /h/ and /w/ in the initial position of
--- NOTE | 2022-08-18 15:09 | STOPDC ---
Assessment and note entered by Annie Payan CLOTH MENDER Evaluation Information Assessment Status Progress Reported Pain Level Pain Score 0: Self Report Assessment ST Clinical Summary TREATMENT SUMMARY AND DISCHARGE SUMMARY The patient was seen for an initial evaluation on 07/20 and eight treatment sessions focusing on word-retrieval, intelligible and fluent speech, and adequate, appropriate sentence structure. Patient had been seen in the past by Speech Therapy at this facility and made amazing progress however she returned for additional Speech Therapy as she stated she was still having trouble saying the words that she wanted to say and still exhibited dysfluency including hesitations and word repetitions as she was attempting to think of words. When asked if this month's therapy has been helpful, patient stated, Yes, its been really great. Patient stated, I can...I don't... I can do the stuttering, that's better; I can speak with my speech. Patient reported she wants to continue and she wants to get better speech. When asked to be more specific, she stated, I can ...I can...see I can't talk. I really want my speech better. When asked how so, she said, I just can't get my words out any better. With therapist cues, she restated that she felt this last four weeks of Speech Therapy has significantly helped but she is not where she wants it to be, still becomes frustrated by her impairments. Today the patient was re-evaluated using portions of the [facility] outpatient language evaluation and the Cookie [employer] Theft picture from the [facility]. Patient exhibited minute improvement in two area, confrontational naming of less familiar items ( increase from 9/10 correct to 10/10 correct) and being able to say scissors on first attempt. She exhibited no significant change in the areas of sentence creation and description of the [employer] Theft picture which decreased significantly from 26 appropriate words to 11 appropriate words describing what she saw in the picture. Patient was really unable to describe why items were more difficult to complete other than her breath.
== END 2022-08-19 09:41 | disposition home or self-care (01) ==
LOC: ANHST 12:30
PROVIDERS: PCP Internal Medicine Gastroenterology; Visit Provider Internal Medicine Gastroenterology
DX: R41.89 Other symptoms and signs involving cognitive functions and awareness (principal); Z86.73 Personal history of transient ischemic attack (TIA), and cerebral infarction without residual deficits
CPT/HCPCS: 92507; 92523

== ENCOUNTER 2023-01-04 12:11 | Observation (INO) | payer MEDICARE, OTHER, SELFPAY ==
[2023-01-04] VITALS (15 sets, daily range): BP systolic 94–190; BP diastolic 48–88; PULSE 59–111; RESP 14–29; TEMP 36.3–36.9; O2SAT 94–100; BMI 19.3
--- NOTE | ~2023-01-04 | CT_ITS ---
EXAMINATION: CT soft tissue neck wo con DATE: 01/06/2023 14:51 INDICATION: Laryngospasm. Dyspnea. TECHNIQUE: Computed tomography (CT) of the neck was performed without intravenous contrast. Automated exposure control and iterative reconstruction technique were employed. The dose-length product was 2 71.69 mGy-cm. COMPARISON: Chest 2 views 06/02/2022 FINDINGS: There are likely changes of bilateral lens replacement procedures. There are no pathologica lly enlarged lymph nodes. Calcified left hilar lymph nodes are consistent with old granulomatous dise ase. The pharynx and larynx are unremarkable. Aortic atherosclerosis is noted. There are changes of a nterior fusion procedure from C4 to C7. There is a chronic burst fracture of T5. There is mild chroni c anterior wedging of T1. IMPRESSION: 1. No etiology for the patient's symptoms. Reviewed, dictated and finalized at location E.
--- NOTE | ~2023-01-04 | CT_ITS ---
Non-contrast CT scan of the Abdomen and Pelvis Clinical indication: Suprapubic pain Technique: 2.5 mm axial scans were obtained through the abdomen and pelvis without intravenous or or al contrast. Dose reduction technique was used on this scan by utilizing automated exposure control a nd iterative reconstruction technique. The dose-length product (DLP) was 186.79 mGy-cm. COMPARISON: 09/30/2020 Findings: Images through the lung bases reveal no abnormalities. Left kidney is markedly atrophic, unchanged. There is compensatory hypertrophy of the right kidney, w ith probable small nonobstructing right lower pole stone versus vascular calcification.. The liver, spleen, pancreas, and adrenals appear normal. Gallbladder not clearly visualized. There is no aortic aneurysm. There is no evidence of bowel obstruction. There is a 1.3 cm metallic linear foreign body just anteri or to the distal sacrum/proximal coccyx, possibly within bowel (axial image 135). No definite free ai r or abscess. Images through the pelvis were performed. There is no evidence of ascites or lymphadenopathy. Suprapu bic catheter in place. Urinary bladder otherwise unremarkable. No adnexal mass seen. No ascites. Impression: 1.3 cm metallic linear foreign body just anterior to the distal sacrum/proximal coccyx, possibly with in bowel. No bowel obstruction, free air, or abscess. Correlate with procedural/surgical history and/ or any abnormal foreign body ingestion. Superpubic catheter in place. Urinary bladder otherwise unremarkable. Probable small right lower pole nonobstructing stone. Left kidney is markedly atrophic. Reviewed, dictated and finalized at [facility]. Impression: 1.3 cm metallic linear foreign body just anterior to the distal sacrum/proximal coccyx, possibly within bowel. No bowel obstruction, free air, or abscess. Cor relate with procedural/surgical history and/or any abnormal foreign body ingest ion. Superpubic catheter in place. Urinary bladder otherwise unremarkable. Probable small right lower pole nonobstructing stone. Left kidney is markedly a trophic.
--- NOTE | ~2023-01-04 | XR_ITS ---
Supine portable view of of the abdomen Clinical history: Left lower quadrant pain Findings: Bowel gas pattern is nonspecific. No evidence for obstruction or free air. No abnormal mass lesion or calcification is seen. There is lumbosacral spinal fixation hardware. Impression: Nonspecific bowel gas pattern. Reviewed, dictated and finalized at [facility]. Impression: Nonspecific bowel gas pattern.
--- NOTE | 2023-01-04 12:20 | ED.FEMALEGU ---
HPI - Female Genitourinary General Chief complaint: Urogenital-Female <Cheri Krishnamurthy PA-C - Last Filed: 01/04/23 12:24> Stated complaint: bleeding on urination <Cheri Krishnamurthy PA-C - Last Filed: 01/04/23 12:24> Time Seen by Provider: 01/04/23 12:18 <Cheri Krishnamurthy PA-C - Last Filed: 01/04/23 12:24> Source: patient <Cheri Krishnamurthy PA-C - Last Filed: 01/04/23 12:24> Mode of arrival: ambulatory <Cheri Krishnamurthy PA-C - Last Filed: 01/04/23 12:24> Limitations: no limitations <Cheri Krishnamurthy PA-C - Last Filed: 01/04/23 12:24> History of Present Illness HPI Narrative: Patient is an 82-year-old female, with past medical history of CVA with aphasia, suprapubic catheter, who presents to the ED with report of hematuria. Patient states she has had urinary frequency and urgency, and noticed hematuria coming from her suprapubic catheter today. She complains of lower abdominal pain. Denies back pain, fevers, nausea, vomiting. Denies diarrhea. <Cheri Krishnamurthy PA-C - Last Filed: 01/04/23 12:24> Patient is an 82-year-old female, with past medical history of CVA with aphasia, suprapubic catheter, who presents to the ED with report of hematuria. Patient states she has had urinary frequency and urgency, and noticed blood coming from her suprapubic catheter today. She complains of lower abdominal pain. Denies back pain, fevers, nausea, vomiting. Denies diarrhea. <Nithya Mosley MD - Last Filed: 01/04/23 16:52> Related Data Home medications: Home Medications Medication Instructions Recorded Confirmed ascorbic acid (vitamin C) 500 mg 500 mg PO DAILY 11/05/19 05/11/22 capsule calcium citrate 315 mg-vitamin D3 1 tablet PO TID 11/05/19 05/11/22 5 mcg (200 unit) tablet (Calcium Citrate + D) mecobalamin (vitamin B12) 1,000 1,000 mcg sublingual DAILY 11/05/19 05/11/22 mcg disintegrating tablet,sublingual misoprostol 200 mcg tablet 200 mcg PO DAILY 11/05/19 05/11/22 multivit with min-folic 1 tablet PO DAILY 11/05/19 05/11/22 acid-lutein 400 mcg-250 mcg chewable tablet (Centrum Silver) omega 3-uml-hxe-fish oil 1,200 mg 1 cap PO DAILY 11/05/19 05/11/22 (144 mg-216 mg) capsule (Fish Oil) vitamin B complex (B 1 tablet PO DAILY 11/05/19 05/11/22 Complex-Vitamin B12 tablet) vitamin E (dl, acetate) 90 mg (200 200 unit PO DAILY 11/05/19 05/11/22 unit) capsule atorvastatin 80 mg tablet 80 mg PO HS 08/29/20 05/11/22 aspirin 81 mg chewable tablet 81 mg PO DAILY 05/11/22 05/11/22 carvedilol 12.5 mg tablet (Coreg) 12.5 mg PO BID 05/11/22 05/11/22 cephalexin 500 mg capsule 500 mg PO DAILY 05/11/22 05/11/22 citalopram 20 mg tablet 20 mg PO DAILY 05/11/22 05/11/22 levetiracetam 1,000 mg tablet 1,000 mg PO BID 05/11/22 05/11/22 sacubitril 24 mg-valsartan 26 mg 1 tablet PO BID 05/11/22 05/11/22 tablet (Entresto) <Cheri Krishnamurthy PA-C - Last Filed: 01/04/23 12:24> Allergies/Adverse reactions: Allergies Allergy/AdvReac Type Severity Reaction Status Date / Time naproxen Allergy Severe cardiac Verified 06/02/22 13:27 arrest NSAIDS (Non-Steroidal Allergy Severe cardiac Verified 06/02/22 13:27 Anti-Inflamma arrest morphine Allergy Mild unknown Verified 06/02/22 13:27 <Cheri Krishnamurthy PA-C - Last Filed: 01/04/23 12:24> Review of Systems Review of Systems: CONSTITUTIONAL: Denies fever, chills, or sweats. GASTROINTESTINAL: See HPI. GENITOURINARY: See HPI. SKIN: Denies rash or itching. MUSCULOSKELETAL: Denies back pain. <Cheri Krishnamurthy PA-C - Last Filed: 01/04/23 12:24> All systems reviewed & are unremarkable except as noted in HPI and below <Cheri Krishnamutrhy PA-C - Last Filed: 01/04/23 12:24> [facility] Past Medical History Medical History: Medical History (Updated 01/04/23 @ 16:52 by Nithya Mosley MD) Acute blood loss anemia Atrophy of left kidney Expressive aphasia Gastrojejunal ulcer w
[2023-01-04 12:38] LABS: Basophils Absolute Auto 0.1 K/mm3 (0.0-0.1); Basophils Percent Auto 0.6 % (0.2-1.2); Eosinophils Percent Auto 0.2 % (0-4.4); Hematocrit 29.6 % (37.0-47.0); Hemoglobin 9.6 g/dL (12.0-15.0); Immature Granulocyte Absolute 0.04 K/mm3 (0.00-0.031); Immature Granulocyte Percent A 0.4 % (0-0.5); Lymphocytes Absolute Auto 1.73 K/mm3 (0.9-3.2); Lymphocytes Percent Auto 18.1 % (18.3-44.2); Mean Corpuscular HGB Conc 32.4 g/dl (32-36); Mean Corpuscular Hemoglobin 31.3 pg (26-34); Mean Corpuscular Volume 96.4 fl (80-100); Mean Platelet Volume 10.9 fl (7.4-10.4); Monocytes Absolute Auto 0.5 K/mm3 (0.1-0.6); Monocytes Percent Auto 4.7 % (2.6-8.5); Neutrophils Absolute Auto 7.3 K/mm3 (1.3-6.7); Platelet Count Result 211 k/mm3 (150-375); Red Blood Count 3.07 M/mm3 (4.2-5.4); Red Cell Distribution Width 12.1 % (11.5-14.5); White Blood Count 9.6 K/mm3 (4.5-10.0)
[2023-01-04 12:54] LABS: Alanine Aminotransferase 45 U/L (6-35); Albumin Level 3.9 g/dL (3.5-5.1); Alkaline Phosphatase 67 U/L (38-126); Anion Gap 7 mmol/L (8-16); Aspartate Amino Transferase 47 U/L (14-36); Bilirubin,Total 0.5 mg/dL (0.2-1.3); Blood Urea Nitrogen 57 mg/dL (7-17); Calcium 8.2 mg/dL (8.4-10.2); Carbon Dioxide 22 mmol/L (22-30); Chloride 105 mmol/L (98-107); Estimated Glomerular Filt Rate 33; Glucose 102 mg/dL (65-110); Sodium 134 mmol/L (137-145)
[2023-01-04 13:11] LABS: Appearance Urine Clear (Clear); Bacteria Urine 1+ /hpf; Bilirubin Urine Negative (Negative); Blood Urine 3+ (Negative); Color Urine Light Red (Yellow); Glucose Urine UA Negative (Negative); Ketones Urine Negative (Negative); Leukocyte Esterase Ur 1+ LEU/UL (Negative); Need Manual Microscopic Reviewed; Nitrate Urine Negative (Negative); Non Pathogenic Casts 0-2; Protein Urine 1+ mg/dL (Negative); Specific Grav Ur 1.001 (1.001-1.035); Squamous Epithelial Cell Urine None seen /hpf (Few); Urobilinogen Urine 0.2 mg/dL (<2.0); WBC Urine 0-5 /hpf; pH Urine 7.5 (5.0-9.0)
[2023-01-04 13:12] LABS: Add Urine Microscopic? YES
[2023-01-04 13:45] LABS: Creatine Kinase 70 U/L (30-135)
--- NOTE | 2023-01-04 14:45 | PC.NURSE ---
patient called RN to bathroom. large dark red stool noted. provider aware and observed.
--- NOTE | 2023-01-04 15:06 | ECG_ITS ---
Measurements Intervals [place] Rate: 62 P: 68 [place]: 148 QRS: 46 QRSD: 78 T: 62 QT: 408 QTc: 417 Interpretive Statements SINUS RHYTHM NONSPECIFIC ST & T-WAVE ABNORMALITY COMPARED TO ECG 06/02/2022 12:34:08 NO SIGNIFICANT CHANGES Electronically Signed On 01-04-2023 15:53:43 CDT by Lorena Willis M.D.
[2023-01-04] MEDS: LACTATED RINGERS 1,000 ML 999 ML IV CONT ×2 (15:24→20:55)
[2023-01-04] MEDS: PANTOPRAZOLE SODIUM IV 40 MG VIAL IV PUSH (15:24)
--- NOTE | 2023-01-04 16:24 | WPDGICN ---
Assessment and Plan Assessment and plan (1) GI bleed: Code(s): K92.2 - Gastrointestinal hemorrhage, unspecified Status: Acute Assessment and Plan: Bleeding began this morning, the patient it is nurse states that she passed large amount here in the emergency department. The patient denies pain (2) History of gastric bypass: Code(s): Z98.84 - Bariatric surgery status Status: Acute Assessment and Plan: She had a bypass many years ago. 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 Since then has been no sign of bleeding. She denies any abdominal pain. She has been maintained on pantoprazole. Apparently she also takes misoprostol daily (4) Ischemic cerebrovascular accident (CVA): Onset Date: 08/14/20 Code(s): I63.9 - Cerebral infarction, unspecified Status: Acute Assessment and Plan: She has residual expressive aphasia. Aspirin will be held while she is here. Plan She will be admitted H&H will be followed serially Potassium which is elevated will be corrected Tomorrow we will begin prep for colonoscopy GI Consult Note Consult date/time: 01/04/23 16:24 HPI: Nicole Ptaricia is a 82 year old female who was brought to the hospital because of rectal bleeding which started this morning. According to her and her she began passing blood per rectum he had was dark red blood with some stool at 1st. She denies having any abdominal pain or rectal pain. The emergency room note says states that she has had bleeding from a suprapubic catheter but the patient denies that. Her hemoglobin is 9.6. This is about her normal range of of 8-10. She denies sweating or lightheadedness. She denies nausea or vomiting. She does take an aspirin tablet daily because she has had a stroke. Review of Systems Review of Systems: All systems reviewed & are unremarkable except as noted in HPI and below [facility] Past Medical History Medical History (Updated 01/04/23 @ 16:36 by Eduardo Vazquez MD) Acute blood loss anemia Atrophy of left kidney Expressive aphasia Gastrojejunal ulcer with hemorrhage History of gastroscopy 08/18/09, 09/09/09, with structure Hypertension Iron (Fe) deficiency anemia Ischemic cerebrovascular accident (CVA) (08/14/20) Treated with tPA and thrombectomy Rectal bleeding Urinary incontinence Vaginal delivery 1960, , full term, female, 7#10 1969, , full term, female, 7#10 Surgical History Surgical History H/O rectal polypectomy 11/13/08, 08/27/03 H/O right heart catheterization 12/17/08 unsure if lt or rt History of breast biopsy 06/09/10, stereotactic, biopsy rt breast History of cholecystectomy 05/09/09 History of endoscopy 12/16/09, 02/10/10, 08/25/10, 04/26/18 History of esophagogastroduodenoscopy (EGD) 04/25/12, with upper GI History of eye surgery 11/05/14 cataract right eye, 11/20/14 cataract left eye, 07/28/18 bilateral removal of scar tissue 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ing MARCUS L4-5, L3-4, Doscectomy/fusion lt iliac crest graft 10/12/01 cervical discectomy and fusion of c6-7 History of spinal surgery 02/10/16 lumbar decompressive laminectomy, transformal lumbar interbody fusion with
[2023-01-04 16:52] LABS: Potassium 4.9 mmol/L (3.4-5.0)
--- NOTE | 2023-01-04 18:03 | ADMGEN ---
This patient, Nicole Patricia, was admitted to Medical Room 253-01. Patient/family oriented to hospital policies and general routines including ID bracelet, bed and alarms, visiting hours, pain management, procedures, bathroom and other care routines, personal items, smoking policy, room service/diet, and visiting hours. Information on how to activate the Rapid Response Team has been discussed. Patient/Family are encouraged to report perceived risks to care and to ask questions if they do not understand what they are told or what they should do.
--- NOTE | 2023-01-04 18:29 | PM.IMHP ---
H&P: HPI History of Present Illness Date/Time: 01/04/23 18:29 Chief Complaint: Hematemesis and blood per rectum Narrative: female presents here bloody bowel movement x3 and minimum times today with past medical history CVA with residual word-finding difficulties and dysarthria, PUD, suprapubic catheter, gastric bypass. Patient presents to the ED with 3 bloody bowel movements this morning - described as coffee-ground/dark and bright red blood. Patient passed 1 bloody bowel movement while in the emergency department. Also had large volume hematemesis x5 at home. She described it as coffee-ground. Associated with increased fatigue and dizziness. No prior history of heavy alcohol use. She reports having a similar episode and was diagnosed with a gastrojejunal ulcer with hemorrhage requiring ablation. Now on p.o. pantoprazole at home and Cytotec. Last colonoscopy in 2021. Review of Systems Review of Systems: She denies chest pain, palpitations, syncope. All systems reviewed & are unremarkable except as noted in HPI and below [facility] Past Medical History Medical History Acute blood loss anemia Atrophy of left kidney Expressive aphasia Gastrojejunal ulcer with hemorrhage History of gastroscopy 08/18/09, 09/09/09, with structure Hypertension Iron (Fe) deficiency anemia Ischemic cerebrovascular accident (CVA) (08/14/20) Treated with tPA and thrombectomy Rectal bleeding Urinary incontinence Vaginal delivery 1960, , full term, female, 7#10 1969, , full term, female, 7#10 Surgical History Surgical History H/O rectal polypectomy 11/13/08, 08/27/03 H/O right heart catheterization 12/17/08 unsure if lt or rt History of breast biopsy 06/09/10, stereotactic, biopsy rt breast History of cholecystectomy 05/09/09 History of endoscopy 12/16/09, 02/10/10, 08/25/10, 04/26/18 History of esophagogastroduodenoscopy (EGD) 04/25/12, with upper GI History of eye surgery 11/05/14 cataract right eye, 11/20/14 cataract left eye, 07/28/18 bilateral removal of scar tissue 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ing MARCUS L4-5, L3-4, Doscectomy/fusion lt iliac crest graft 10/12/01 cervical discectomy and fusion of c6-7 History of spinal surgery 02/10/16 lumbar decompressive laminectomy, transformal lumbar interbody fusion with PEEK spacers, posterior intertransverse fusion, posterior spinal instrumentation, harvesting bone graft History of stress incontinence procedure using tension free vaginal tape 05/18/01 Hx of breast surgery 07/27/10, mastopexy Family History Family History Grandparent Family history of malignant neoplasm of ovary Father Family history of lung cancer Sibling Family history of lung cancer Social History Social History (Updated 01/05/23 @ 02:12 by Ramya Johnson APRN) Social History: The patient is and has 2 daughters she now has a significant other. She currently lives with her significant other. 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 She is a lifelong nonsmoker. Full Code Smoking status: Never smoker Alcohol intake: never Substance use: never Substance use type: does not use Lack of Transportation: No Lack of Food: Never True Current Housing: I Have Housing Concerned About Future Housing: No Difficulty Paying Gas/Electric Bills:
[2023-01-04] MEDS: BISACODYL 5 MG TABLET EC 10 MG PO (20:19)
--- NOTE | 2023-01-04 20:43 | ECG_ITS ---
Measurements Intervals [place] Rate: 92 P: 66 [place]: 141 QRS: 47 QRSD: 78 T: 60 QT: 386 QTc: 479 Interpretive Statements SINUS RHYTHM ST DEVIATION AND MODERATE T-WAVE ABNORMALITY, CONSIDER LATERAL ISCHEMIA [-0.1+ mV T WAVE IN I/aVL/V5/V6] COMPARED TO ECG 01/04/2023 15:21:[address] SEGMENT CHANGES ARE SOMEWHAT MORE PRONOUNCED Electronically Signed On 01-05-2023 15:41:53 CDT by Christa Moreno M.D.
[2023-01-04 21:04] LABS: Mean Corpuscular Hemoglobin 31.6 pg (26-34); Mean Corpuscular Volume 95.6 fl (80-100); Mean Platelet Volume 10.7 fl (7.4-10.4); Platelet Count Result 151 k/mm3 (150-375); Red Blood Count 2.06 M/mm3 (4.2-5.4); Red Cell Distribution Width 12.3 % (11.5-14.5)
[2023-01-04 21:09] LABS: Hemoglobin 6.5 g/dL (12.0-15.0)
[2023-01-04 21:10] LABS: Hematocrit 19.7 % (37.0-47.0)
[2023-01-04 22:24] LABS: Glucose Point of Care 146 mg/dl (65-105)
[2023-01-05] VITALS (22 sets, daily range): BP systolic 114–153; BP diastolic 53–84; PULSE 68–85; RESP 14–22; TEMP 36.2–36.9; O2SAT 91–100
[2023-01-05] MEDS: TUBING, BLOOD PLUM PUMP TUBING 1 EACH XX (00:59)
[2023-01-05] MEDS: CALCIUM GLUC 2,000 MG/NS 100ML 2,000 MG/100 ML BAG 100 MG IVPB (02:50)
--- NOTE | 2023-01-05 03:15 | PC.NURSE ---
This patient, Nicole Patricia, was received from [ [phone]] on 01/04/23 at 2342. Patient/family oriented to unit policies and routines
[2023-01-05] MEDS: PANTOPRAZOLE SODIUM IV 80 MG in SODIUM CHLORIDE 0.9% IV 500 ML 50 MG IV CONT ×2 (03:27→14:10)
[2023-01-05 05:11] LABS: Hematocrit 26.1 % (37.0-47.0); Hemoglobin 8.6 g/dL (12.0-15.0)
--- NOTE | 2023-01-05 07:18 | WPDGIPROGNO ---
Progress Note: A&P Assessment and Plan (1) GI bleed: Code(s): K92.2 - Gastrointestinal hemorrhage, unspecified Status: Acute Assessment and Plan: Bleeding began this morning, the patient it is nurse states that she passed large amount here in the emergency department. The patient denies pain 01/05/2023 hemoglobin dropped to 6.4 last night. After transfusion with 2 units she is up to 8.6. She denies any pain. (2) History of gastric bypass: Code(s): Z98.84 - Bariatric surgery status Status: Acute Assessment and Plan: She had a bypass many years ago. 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 Since then has been no sign of bleeding. She denies any abdominal pain. She has been maintained on pantoprazole. Apparently she also takes misoprostol daily (4) Ischemic cerebrovascular accident (CVA): Onset Date: 08/14/20 Code(s): I63.9 - Cerebral infarction, unspecified Status: Acute Assessment and Plan: She has residual expressive aphasia. Aspirin will be held while she is here. Plan She will be admitted H&H will be followed serially Potassium which is elevated will be corrected Tomorrow we will begin prep for colonoscopy EGD and colonoscopy to be done morning. Subjective Date/time seen: 01/05/23 07:18 No complaints today except back ache. She denies abdominal pain. She was hoping to get some breakfast. I explained her that she will be on clear liquids today. Vital signs are stable. Exam Const: General: cooperative and healthy appearing Orientation/consciousness: patient oriented x3 HENMT: Head: normal to inspection Ears: hearing grossly normal bilaterally Mouth: Yes Normal oral and palatal mucosa present Eyes: General: appearance normal, both eyes and all related structures Neck: Neck: normal visual inspection Chest: Chest palpation & inspection: normal inspection of the chest Resp: Effort & Inspection: normal respiratory effort Auscultation: clear to auscultation bilaterally Cardio: Rate: regular rate Rhythm: regular rhythm GI: Inspection: normal to inspection and other (Suprapubic catheter) Auscultation: normal bowel sounds Urinary Catheter: Urinary Catheter: other (Suprapubic) Skin: General skin exam: normal color and no jaundice Neuro: General: patient oriented x3 Speech: Expressive aphasia present Objective Data Vital Signs Vital Signs: Vital Signs - 24 hr 01/04/23 12:14 01/04/23 13:17 01/04/23 14:00 Temperature 36.8 C Pulse Rate 68 59 L 64 Respiratory Rate 20 29 H 16 Blood Pressure 114/48 L 141/64 H 94/65 L Pulse Oximetry 98 100 97 Oxygen Delivery Room Air 01/04/23 15:00 01/04/23 14:30 01/04/23 18:37 Temperature Pulse Rate 68 62 Respiratory Rate 16 16 Blood Pressure 142/71 H 160/70 H Pulse Oximetry 98 97 Oxygen Delivery Room Air 01/04/23 18:01 01/04/23 20:45 01/04/23 21:45 Temperature 36.4 C L 36.3 C L 36.4 C Pulse Rate 80 111 H 79 Respiratory Rate 16 16 Blood Pressure 147/79 H 149/74 H 146/65 H Pulse Oximetry 100 100 98 Oxygen Delivery 01/04/23 22:05 01/04/23 22:20 01/04/23 20:00 Temperature 36.6 C 36.8 C Pulse Rate 75 75 85 Respiratory Rate 16 16 Blood Pressure 144/62 H 137/62 Pulse Oximetry 100 99 Oxygen Delivery 01/04/23 20:00 01/04/23 23:20 01/04/23 20:19 Temperature 36.9 C 36.3 C L Pulse Rate 75 77 Respiratory Rate 16 14 16 Blood Pressure 137/65 190/88 H Pulse Oximetry 99 94 100 Oxygen Delivery Room Air 01/04/23 23:40 01/04/23 23:45 01/05/23 00:20 Temperature 36.6 C 36.3 C L 36.5 C Pulse Rate 80 77 Respiratory Rate 18 18 Blood Pressure 149/74 H 142/70 H 124/69 Pulse Oximetry 100 100 99 Oxygen Delivery
[2023-01-05 08:04] LABS: Hematocrit 26.9 % (37.0-47.0); Hemoglobin 8.8 g/dL (12.0-15.0)
[2023-01-05 08:13] LABS: INR 1.2; Partial Thromboplastin Time 25.9 SECONDS (22.3-36.8); Prothrombin Time 16.3 Seconds (11.1-14.7)
[2023-01-05] MEDS: levETIRAcetam 500 MG TABLET 1500 MG PO ×2 (11:58→20:17)
[2023-01-05] MEDS: miSOPROStol 200 MCG TABLET PO (11:58)
[2023-01-05] MEDS: CITALOPRAM HYDROBROMIDE 20 MG TABLET PO (11:59)
[2023-01-05] MEDS: busPIRone HCL 5 MG TABLET 15 MG PO ×2 (11:59→13:00)
[2023-01-05] MEDS: carvediloL 12.5 MG TABLET PO ×2 (12:00→20:17)
[2023-01-05] MEDS: PYRIDOXINE HCL 50 MG TABLET 100 MG PO (12:01)
[2023-01-05] MEDS: SULFAMETHOXAZOLE/TRIMETHOPRIM 800/160 MG DS TABLET 1 TAB PO ×2 (12:01→18:07)
[2023-01-05 12:41] LABS: Hematocrit 25.1 % (37.0-47.0); Hemoglobin 8.1 g/dL (12.0-15.0)
[2023-01-05 13:02] LABS: Alanine Aminotransferase 31 U/L (6-35); Albumin Level 2.7 g/dL (3.5-5.1); Alkaline Phosphatase 45 U/L (38-126); Anion Gap 9 mmol/L (8-16); Aspartate Amino Transferase 24 U/L (14-36); Bilirubin,Total 0.5 mg/dL (0.2-1.3); Blood Urea Nitrogen 43 mg/dL (7-17); Calcium 7.9 mg/dL (8.4-10.2); Carbon Dioxide 16 mmol/L (22-30); Chloride 108 mmol/L (98-107); Estimated CRCL calculation 25 ml/min; Estimated Glomerular Filt Rate 43; Glucose 178 mg/dL (65-110); Potassium 3.9 mmol/L (3.4-5.0); Sodium 133 mmol/L (137-145)
--- NOTE | 2023-01-05 15:41 | PC.NURSE ---
Spoke with Dr. Nichols regarding multiple laryngeal spasms within a 15 minute period. Per MD call respiratory for Racemic epinephrine, and 0.5mg of IV push ativan stat.
[2023-01-05] MEDS: racEPINEPHrine 2.25% NEBU SOLN 0.5 ML VIAL.NEB INHALATION (15:55)
[2023-01-05] MEDS: LORazepam INJ (*CRX) 2 MG/ML VIAL (16:01)
--- NOTE | 2023-01-05 16:21 | PM.IMPN ---
Progress Note: A&P Assessment and Plan (1) Hematochezia: Code(s): K92.1 - Melena Status: Acute (2) Hematemesis: Code(s): K92.0 - Hematemesis Status: Acute (3) Hyperkalemia: Code(s): E87.5 - Hyperkalemia Status: Acute (4) Expressive aphasia: Code(s): R47.01 - Aphasia Status: Acute Plan Problem List 1. Hematochezia Past medical history of PUD with bleed, required cauterization and was also anemic at that time Trend CBC q.4 - initially 9.6 NPO Consult to GI - George. Recommended holding aspirin, prepped for colonoscopy tomorrow and bisacodyl. Given pantoprazole 40 IV in the ED. Continue, pantoprazole IV continuous 15 mL/hour. Type and screen sent Vital signs q.4 Positive blood per ED physician digital rectal exam Verbal consent for blood in the case of emergency, if not emergent obtain written consent 01/05: still bleeding, appreciate GI consult, hemoglobin stable for now 2. Hematemesis See above 3. Hyperkalemia Patient reports she takes 2 pills b.i.d. of potassium, hold home medication EKG impression SINUS RHYTHM NONSPECIFIC ST & T-WAVE ABNORMALITY COMPARED TO ECG 06/02/2022 12:34:08 NO SIGNIFICANT CHANGES Given 1 L of IV fluids and ED. creatinine currently 1.5, previously 1.1. Baseline appears to be between 1.1 and 1.4. Continue to trend. Initially 6, repeated and 4.9 Trend, add magnesium and phosphate 4. Expressive aphasia Baseline post previous CVA Chronic Conditions -currently receiving treatment for UTI: Continue cephalexin and Bactrim -Will hold home p.o. pantoprazole -continue BuSpar, vitamin B6, atorvastatin, Keppra, Celexa, carvedilol, Cytotec as tolerated by patient Diet: NPO GI Prophylaxis: Pantoprazole IV, continuous DVT Prophylaxis: SCDs. Pharmacological contraindicated due to active bleeding Lines: pIV Code Status: DNR Subjective Date/time seen: 01/05/23 16:21 Interval history: No overnight events noted. No chest pain or shortness of breath. No nausea, vomiting or diarrhea. No fevers or chills. Review of Systems Review of Systems: 12 point review of systems was assessed and was negative except as noted in the HPI Exam Narrative: General: No acute distress, alert and oriented per baseline HEENT: Atraumatic, normocephalic, mucous membranes moist CV: Regular rate and rhythm, S1, S2 Lungs: Clear to auscultation bilaterally, no rales or crackles noted, no wheezes, good air entry Abdomen: Soft, nontender, nondistended Extremities: Normal to inspection Skin: No rashes noted, no lesions or wounds seen Psych: Euthymic, normal affect Objective Data Vital Signs Vital Signs: Vital Signs - 24 hr 01/04/23 18:37 01/04/23 18:01 01/04/23 20:45 Temperature 97.5 F L 97.4 F L Pulse Rate 80 111 H Respiratory Rate 16 Blood Pressure 147/79 H 149/74 H Pulse Oximetry 100 100 Oxygen Delivery Room Air 01/04/23 21:45 01/04/23 22:05 01/04/23 22:20 Temperature 97.6 F 97.8 F 98.2 F Pulse Rate 79 75 75 Respiratory Rate 16 16 16 Blood Pressure 146/65 H 144/62 H 137/62 Pulse Oximetry 98 100 99 Oxygen Delivery 01/04/23 20:00 01/04/23 20:00 01/04/23 23:20 Temperature 98.5 F Pulse Rate 85 75 77 Respiratory Rate 16 14 Blood Pressure 137/65 Pulse Oximetry 99 94 Oxygen Delivery Room Air 01/04/23 20:19 01/04/23 23:40 01/04/23 23:45 Temperature 97.4 F L 97.8 F 97.4 F L Pulse Rate 80 Respiratory Rate 16 18 Blood Pressure 190/88 H 149/74 H 142/70 H Pulse Oximetry 100 100 100 Oxygen Delivery 01/05/23 00:20 01/05/23 00:35 01/05/23 00:00 Temperature 97.7 F 97.2 F L Pulse Rate 77 76 Respiratory Rate 18 18 Blood Pressure 124/69 144/76 H Pulse Oximetry 99 99 99 Oxygen Delivery Room Air 01/05/23 00:51 01/05/23 00:00 01/05/23 01:51 Temperature 97.6 F 97.5 F L Pulse Rate 82 75 79 Respiratory Rate 18 18 Blood Pressure 147/72 H 151/78 H Pu
[2023-01-05 16:56] LABS: Hematocrit 24.3 % (37.0-47.0)
[2023-01-05] MEDS: polyethylene glycoL 3350 238 GM BOTTLE PO (18:43)
[2023-01-05 20:17] LABS: Hematocrit 24.1 % (37.0-47.0); Hemoglobin 7.7 g/dL (12.0-15.0)
[2023-01-05] MEDS: ATORVASTATIN 40 MG TABLET 80 MG PO (20:17)
[2023-01-06] VITALS (26 sets, daily range): BP systolic 114–170; BP diastolic 51–88; PULSE 55–72; RESP 12–28; TEMP 36.1–36.6; O2SAT 100
[2023-01-06] MEDS: PANTOPRAZOLE SODIUM IV 80 MG in SODIUM CHLORIDE 0.9% IV 500 ML 50 MG IV CONT (00:16)
[2023-01-06 00:43] LABS: Hematocrit 22.5 % (37.0-47.0); Hemoglobin 7.4 g/dL (12.0-15.0)
[2023-01-06 03:16] LABS: Basophils Percent Auto 0.4 % (0.2-1.2); Eosinophils Absolute Auto 0.1 K/mm3 (0-0.3); Eosinophils Percent Auto 1.5 % (0-4.4); Hematocrit 23.2 % (37.0-47.0); Hemoglobin 7.6 g/dL (12.0-15.0); Immature Granulocyte Absolute 0.01 K/mm3 (0.00-0.031); Immature Granulocyte Percent A 0.2 % (0-0.5); Lymphocytes Absolute Auto 1.86 K/mm3 (0.9-3.2); Lymphocytes Percent Auto 38.9 % (18.3-44.2); Mean Corpuscular HGB Conc 32.8 g/dl (32-36); Mean Corpuscular Volume 94.7 fl (80-100); Mean Platelet Volume 10.8 fl (7.4-10.4); Monocytes Absolute Auto 0.5 K/mm3 (0.1-0.6); Monocytes Percent Auto 10.3 % (2.6-8.5); Neutrophils Absolute Auto 2.3 K/mm3 (1.3-6.7); Neutrophils Percent Auto 48.7 % (45.5-73.1); Platelet Count Result 105 k/mm3 (150-375); Red Blood Count 2.45 M/mm3 (4.2-5.4); Red Cell Distribution Width 13.8 % (11.5-14.5); White Blood Count 4.8 K/mm3 (4.5-10.0)
[2023-01-06 03:38] LABS: Alanine Aminotransferase 32 U/L (6-35); Albumin Level 2.6 g/dL (3.5-5.1); Alkaline Phosphatase 50 U/L (38-126); Anion Gap 2 mmol/L (8-16); Aspartate Amino Transferase 24 U/L (14-36); Bilirubin,Total 0.4 mg/dL (0.2-1.3); Blood Urea Nitrogen 28 mg/dL (7-17); Calcium 7.9 mg/dL (8.4-10.2); Carbon Dioxide 21 mmol/L (22-30); Chloride 112 mmol/L (98-107); Estimated CRCL calculation 23 ml/min; Estimated Glomerular Filt Rate 39; Glucose 94 mg/dL (65-110); Magnesium 1.6 mg/dL (1.6-2.3); Phosphorus 4.2 mg/dL (2.5-4.5); Potassium 4.1 mmol/L (3.4-5.0); Sodium 135 mmol/L (137-145)
[2023-01-06] MEDS: MAGNESIUM SULF 2 GM/WATER 50ML 2 GM/50 ML BAG IVPB (06:33)
--- NOTE | 2023-01-06 08:51 | PM.IMPN ---
Progress Note: A&P Assessment and Plan (1) Hematochezia: Code(s): K92.1 - Melena Status: Acute Assessment and Plan: Past medical history of PUD with bleed, required cauterization and was also anemic at that time Trend CBC q.4 - initially 9.6 NPO Consult to DUSTIN - George. Recommended holding aspirin, prepped for colonoscopy tomorrow and bisacodyl. Given pantoprazole 40 IV in the ED. Continue, pantoprazole IV continuous 15 mL/hour. Type and screen sent Vital signs q.4 Positive blood per ED physician digital rectal exam Verbal consent for blood in the case of emergency, if not emergent obtain written consent 01/05: still bleeding, appreciate GI consult, hemoglobin stable for now 01/06: EGD + colonoscopy today, hgb remains stable (2) Hematemesis: Code(s): K92.0 - Hematemesis Status: Acute Assessment and Plan: resolved (3) Hyperkalemia: Code(s): E87.5 - Hyperkalemia Status: Acute Assessment and Plan: Patient reports she takes 2 pills b.i.d. of potassium, hold home medication EKG impression SINUS RHYTHM NONSPECIFIC ST & T-WAVE ABNORMALITY COMPARED TO ECG 06/02/2022 12:34:08 NO SIGNIFICANT CHANGES Given 1 L of IV fluids and ED. creatinine currently 1.5, previously 1.1. Baseline appears to be between 1.1 and 1.4. Continue to trend. Initially 6, repeated and 4.9 Trend, add magnesium and phosphate resolved, monitor (4) Expressive aphasia: Code(s): R47.01 - Aphasia Status: Acute Assessment and Plan: Baseline post previous CVA (5) Laryngospasm: Code(s): J38.5 - Laryngeal spasm Status: Acute Assessment and Plan: Check CT soft tissue neck, consider ENT consult Plan Chronic Conditions -currently receiving treatment for UTI: Continue cephalexin and Bactrim -Will hold home p.o. pantoprazole -continue BuSpar, vitamin B6, atorvastatin, Keppra, Celexa, carvedilol, Cytotec as tolerated by patient Diet: NPO GI Prophylaxis: Pantoprazole IV, continuous DVT Prophylaxis: SCDs. 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 No overnight events noted. No chest pain or shortness of breath. No nausea, vomiting or diarrhea. No fevers or chills. Patient does report intermittent episodes of difficulty breathing or she feels like her throat is spasming closed. Vital signs remained stable during these episodes. She states she has had these since her stroke and gets them once or twice a month momin for the last 7 months, however, they have been much more frequent since her admission. She received a dose of racemic epinephrine inhaled yesterday with minimal improvement. Ativan has been helping, as well. Review of Systems Review of Systems: 12 point review of systems was assessed and was negative except as noted in the HPI Exam Narrative: General: No acute distress, alert and oriented per baseline HEENT: Atraumatic, normocephalic, mucous membranes moist CV: Regular rate and rhythm, S1, S2 Lungs: Clear to auscultation bilaterally, no rales or crackles noted, no wheezes, good air entry Abdomen: Soft, nontender, nondistended Extremities: Normal to inspection Skin: No rashes noted, no lesions or wounds seen Psych: Euthymic, normal affect Objective Data Vital Signs Vital Signs: Vital Signs - 24 hr 01/05/23 09:08 01/05/23 11:48 01/05/23 12:00 Temperature 97.4 F L Pulse Rate 76 76 Respiratory Rate 18 Blood Pressure 152/80 H Pulse Oximetry 94 98 Oxygen Delivery Room Air Room Air 01/05/23 10:00 01/05/23 12:00 01/05/23 14:00 Temperature Pulse Rate 72 83 73 Respiratory Rate Blood P
[2023-01-06 08:54] LABS: Hematocrit 24.1 % (37.0-47.0); Hemoglobin 7.8 g/dL (12.0-15.0)
[2023-01-06] MEDS: levETIRAcetam 500 MG TABLET 1500 MG PO ×2 (10:19→20:34)
[2023-01-06] MEDS: busPIRone HCL 5 MG TABLET 15 MG PO ×2 (10:19→16:49)
[2023-01-06] MEDS: CITALOPRAM HYDROBROMIDE 20 MG TABLET PO (10:19)
[2023-01-06] MEDS: SULFAMETHOXAZOLE/TRIMETHOPRIM 800/160 MG DS TABLET 1 TAB PO ×2 (10:21→16:49)
--- NOTE | 2023-01-06 12:24 | PC.NURSE ---
Patient transported to GI lab at 1224 per GI RN team. GI lab to continue monitoring patient at this time.
--- NOTE | 2023-01-06 12:35 | WPDANESEPPF ---
Anes - Initial Pre Proc Eval Procedure: Operation Date: 01/06/23 13:30 Proposed Procedures p Esophagogastroduodenoscopy & Colonoscopy - Eduardo Vazquez MD Date/Time: 01/06/23 12:35 Surgeon: Seble Ernst MD Pre Op Diagnosis: LGIB/HyperK Patient Data Age: 82 Gender: F Height: 1.57 m Weight: 48 kg Last Vital Signs Temp 97.8 F 01/06/23 12:00 Pulse 61 01/06/23 12:00 Resp 16 01/06/23 12:00 BP 125/59 L 01/06/23 12:00 Pulse Ox 100 01/06/23 12:00 O2 Del Method Nasal Cannula 01/06/23 11:14 O2 Flow Rate 1 01/06/23 11:14 Allergies Allergy/AdvReac Type Severity Reaction Status Date / Time naproxen Allergy Severe cardiac Verified 01/06/23 12:38 arrest NSAIDS (Non-Steroidal Allergy Severe cardiac Verified 01/06/23 12:38 Anti-Inflamma arrest morphine Allergy Mild unknown Verified 01/06/23 12:38 Home Medications Medication Instructions Recorded Confirmed Type misoprostol 200 mcg tablet 200 mcg PO DAILY 11/05/19 01/04/23 History atorvastatin 80 mg tablet 80 mg PO HS 08/29/20 01/04/23 History aspirin 81 mg chewable tablet 81 mg PO DAILY 05/11/22 01/04/23 History carvedilol 12.5 mg tablet (Coreg) 12.5 mg PO BID 05/11/22 01/04/23 History cephalexin 500 mg capsule 250 mg PO BID 05/11/22 01/04/23 History citalopram 20 mg tablet 20 mg PO DAILY 05/11/22 01/04/23 History levetiracetam 1,000 mg tablet 1,500 mg PO BID 05/11/22 01/04/23 History buspirone 15 mg tablet 15 mg PO TID 01/04/23 01/04/23 History pantoprazole 40 mg tablet,delayed 40 mg PO BID 01/04/23 01/04/23 History release pyridoxine (vitamin B6) 100 mg 100 mg PO DAILY 01/04/23 01/04/23 History tablet sulfamethoxazole 800 1 tablet PO BID 01/04/23 01/04/23 History mg-trimethoprim 160 mg tablet Laboratory Tests 01/05/23 01/05/23 01/05/23 12:32 16:34 19:48 WBC RBC Hgb 8.1 L g/dL 8.0 L g/dL 7.7 L g/dL (12.0-15.0) (12.0-15.0) (12.0-15.0) Hct 25.1 L % 24.3 L % 24.1 L % (37.0-47.0) (37.0-47.0) (37.0-47.0) MCV MCH MCHC RDW Plt Count MPV Immature Gran % (Auto) Neut % (Auto) Lymph % (Auto) Stevens % (Auto) Eos % (Auto) Baso % (Auto) Lymph # (Auto) Stevens # (Auto) Eos # (Auto) Baso # (Auto) Abs Immat Gran (auto) Absolute Neuts (auto) Absolute Nucleated RBC Nucleated RBC % Sodium 133 L mmol/L (137-145) Potassium 3.9 mmol/L (3.4-5.0) Chloride 108 H mmol/L (98-107) Carbon Dioxide 16 L mmol/L (22-30) Anion Gap 9 mmol/L (8-16) BUN 43 H D mg/dL (7-17) Creatinine 1.20 H mg/dL (0.7-1.0) Estim Creat Clear Calc 25 ml/min Estimated GFR 43 L (59 - ) Glucose 178 H mg/dL (65-110) Calcium 7.9 L mg/dL (8.4-10.2) Phosphorus Magnesium Total Bilirubin 0.5 mg/dL (0.2-1.3) AST 24 U/L (14-36) ALT 31 U/L (6-35) Alkaline Phosphatase 45 U/L (38-126) Total Protein 5.0 L g/dL (6.3-8.2) Albumin 2.7 L g/dL (3.5-5.1) 01/06/23 01/06/23 01/06/23 00:38 03:10 08:19 WBC 4.8 K/mm3 (4.5-10.0) RBC 2.45 L M/mm3 (4.2-5.4) Hgb 7.4 L g/dL 7.6 L g/dL 7.8 L g/dL (12.0-15.0) (12.0-15.0) (12.0-15.0) Hct 22.5 L % 23.2 L % 24.1 L % (37.0-47.0) (37.0-47.0) (37.0-47.0) MCV 94.7 fl (80-100) MCH 31.0 pg (26-34) MCHC 32.8 g/dl (32-36) RDW 13.8 % (11.5-14.5) Plt Count 105 L k/mm3 (150-375) MPV 10.8 H fl (7.4-10.4) Immature Gran % (Auto) 0.2 % (0-0.5) Neut % (Auto) 48.7 % (45.5-73.1) Lymph % (Auto) 38.9 %
[2023-01-06] MEDS: LACTATED RINGERS 1,000 ML 150 ML IV CONT (12:45)
[2023-01-06] MEDS: EPINEPHrine INJ 1 MG/10 ML SYRINGE 0.2 MG XX (13:24)
--- NOTE | 2023-01-06 13:52 | SUR.OPER ---
EGD: START 1314, END 1320 COLONOSCOPY: START 1326, END 1352 CECAL POLYP UNRETRIEVED, DR PERAZA AWARE, NO NEW ORDERS
--- NOTE | 2023-01-06 13:59 | PC.NURSE ---
Report received with update from GI lab. Patient in recovery now. still under observation on GI team.
--- NOTE | 2023-01-06 14:35 | SUR.PHASEII ---
Pt transferred to CT. CONNIE Alejandro made aware.
--- NOTE | 2023-01-06 15:01 | PC.NURSE ---
Patient arrived back in room at 1457. This RN to resume patient care.
[2023-01-06] MEDS: ATORVASTATIN 40 MG TABLET 80 MG PO (20:33)
[2023-01-06] MEDS: carvediloL 12.5 MG TABLET PO (20:34)
[2023-01-06] MEDS: SUCRALFATE 1 GM TABLET PO (20:34)
[2023-01-07] VITALS (16 sets, daily range): BP systolic 115–133; BP diastolic 57–69; PULSE 60–80; RESP 12–20; TEMP 36.1–37; O2SAT 97–100
[2023-01-07] MEDS: SUCRALFATE 1 GM TABLET PO ×4 (05:53→20:46)
--- NOTE | 2023-01-07 07:16 | WPDANESPN ---
Anes - Prog Note Post-Op Date/Time: 01/07/23 07:16 Cardiovascular status: normal Respiratory status: normal Airway patency: baseline Mental status: baseline Post-Op hydration status: normal Vital Signs: Last Vital Signs Temp 97 F L 01/07/23 03:56 Pulse 64 01/07/23 05:26 Resp 16 01/07/23 04:00 BP 115/62 01/07/23 03:56 Pulse Ox 100 01/07/23 04:00 O2 Del Method Nasal Cannula 01/07/23 04:00 O2 Flow Rate 1 01/07/23 04:00 Pain Score (VAS): 0/10 I/O: Intake & Output 01/06/23 01/06/23 01/07/23 15:59 23:59 07:59 Intake Total 50 360 100 Output Total 350 1000 Balance 50 10 -900 Laboratory Tests 01/06/23 08:19 01/06/23 03:10 01/06/23 08:19 Hgb 7.8 L Hct 24.1 L Post-procedural complaints: none Patient Feedback: Patient satisfied with anesthetic care.
[2023-01-07] MEDS: miSOPROStol 200 MCG TABLET PO (08:57)
[2023-01-07] MEDS: SULFAMETHOXAZOLE/TRIMETHOPRIM 800/160 MG DS TABLET 1 TAB PO ×2 (08:57→16:37)
[2023-01-07] MEDS: levETIRAcetam 500 MG TABLET 1500 MG PO ×2 (08:57→20:48)
[2023-01-07] MEDS: busPIRone HCL 5 MG TABLET 15 MG PO ×3 (08:58→16:37)
[2023-01-07] MEDS: CITALOPRAM HYDROBROMIDE 20 MG TABLET PO (08:58)
[2023-01-07] MEDS: PYRIDOXINE HCL 50 MG TABLET 100 MG PO (08:58)
[2023-01-07] MEDS: carvediloL 12.5 MG TABLET PO ×2 (08:58→20:46)
[2023-01-07] MEDS: DICYCLOMINE HCL 10 MG CAPSULE 20 MG PO (11:09)
--- NOTE | 2023-01-07 11:42 | PM.DS ---
DS: Admitting Diagnosis Discharge Date 01/08/23 Admitting Diagnosis Blood in stool DS: Discharge Diagnosis Discharge Diagnosis (1) Hematochezia: Code(s): K92.1 - Melena Status: Acute Assessment and Plan: Past medical history of PUD with bleed, required cauterization and was also anemic at that time Trend CBC q.4 - initially 9.6 NPO Consult to GI - Vazquez. Recommended holding aspirin, prepped for colonoscopy tomorrow and bisacodyl. Given pantoprazole 40 IV in the ED. Continue, pantoprazole IV continuous 15 mL/hour. Type and screen sent Vital signs q.4 Positive blood per ED physician digital rectal exam Verbal consent for blood in the case of emergency, if not emergent obtain written consent 01/05: still bleeding, appreciate GI consult, hemoglobin stable for now 01/06: EGD + colonoscopy, hgb remains stable 01/07: EGD showed intestinal ulcers, recommended Carafate 1 g t.i.d. indefinitely for chronic ulcers, colonoscopy showed diverticulosis, hemorrhoids and cecal polyps, follow-up with biopsy results and avoid aspirin and NSAIDs for 1 week (2) Hematemesis: Code(s): K92.0 - Hematemesis Status: Acute Assessment and Plan: resolved (3) Hyperkalemia: Code(s): E87.5 - Hyperkalemia Status: Acute Assessment and Plan: Patient reports she takes 2 pills b.i.d. of potassium, hold home medication EKG impression SINUS RHYTHM NONSPECIFIC ST & T-WAVE ABNORMALITY COMPARED TO ECG 06/02/2022 12:34:08 NO SIGNIFICANT CHANGES Given 1 L of IV fluids and ED. creatinine currently 1.5, previously 1.1. Baseline appears to be between 1.1 and 1.4. Continue to trend. Initially 6, repeated and 4.9 Trend, add magnesium and phosphate resolved, monitor (4) Expressive aphasia: Code(s): R47.01 - Aphasia Status: Acute Assessment and Plan: Baseline post previous CVA (5) Laryngospasm: Code(s): J38.5 - Laryngeal spasm Status: Acute Assessment and Plan: Check CT soft tissue neck, consider ENT consult Plan Chronic Conditions -currently receiving treatment for UTI: Continue cephalexin and Bactrim -Will hold home p.o. pantoprazole -continue BuSpar, vitamin B6, atorvastatin, Keppra, Celexa, carvedilol, Cytotec as tolerated by patient Diet: NPO GI Prophylaxis: Pantoprazole IV, continuous DVT Prophylaxis: SCDs. 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 Patient does report intermittent episodes of difficulty breathing or she feels like her throat is spasming closed.? Vital signs remained stable during these episodes.? She states she has had these since her stroke and gets them once or twice a month momin for the last 7 months, however, they have been much more frequent since her admission. She received a dose of racemic epinephrine inhaled yesterday with minimal improvement. Ativan has been helping, as well. CT soft tissue neck as well as EGD both found no etiology for the patient's sensations. There are also no derangements on vital signs. Suspect variation of anxiety/panic attack. EGD and colonoscopy were performed 01/06 and recommendations were for Carafate 1 g t.i.d. and to follow up for biopsy results outpatient. Please see above and med rec for details. Time Spent with Patient Time attestation: Total time spent providing and/or coordinating discharge services: Exam Narrative: General: No acute distress, alert and oriented per baseline HEENT: Atraumatic, normocephalic, mucous membranes moist CV: Regular rate and rhythm, S1, S2 Lungs: Clear to auscultation bilaterally, no rales or crackles noted, no wheezes, good air entry Abdomen: Soft, nonte
--- NOTE | 2023-01-07 16:48 | WPDGIPROGNO ---
Progress Note: A&P Assessment and Plan (1) GI bleed: Code(s): K92.2 - Gastrointestinal hemorrhage, unspecified Status: Acute Assessment and Plan: Bleeding began this morning, the patient it is nurse states that she passed large amount here in the emergency department. The patient denies pain 01/05/2023 hemoglobin dropped to 6.4 last night. After transfusion with 2 units she is up to 8.6. She denies any pain. 01/07/2023 no further bleeding. Hemoglobin is stable. (2) History of gastric bypass: Code(s): Z98.84 - Bariatric surgery status Status: Acute Assessment and Plan: She had a bypass many years ago. 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 Since then has been no sign of bleeding. She denies any abdominal pain. She has been maintained on pantoprazole. Apparently she also takes misoprostol daily. 01/07/2023 because of the location of her ulcer which is likely chronic. Will maintain her on sucralfate indefinitely. (4) Ischemic cerebrovascular accident (CVA): Onset Date: 08/14/20 Code(s): I63.9 - Cerebral infarction, unspecified Status: Acute Assessment and Plan: She has residual expressive aphasia. Aspirin will be held while she is here. (5) Left upper quadrant pain: Code(s): R10.12 - Left upper quadrant pain Status: Acute Assessment and Plan: this is a new pain that developed at 4:00 a.m. this morning. It has waxed and waned throughout the day. Seem to dissipate completely after she received oral dicyclomine but now has returned that was not as bad. KUB was done which was normal. She denies nausea. Will continue dicyclomine Q 6 hours and obtain CBC to rule out infectious process Plan She will be admitted H&H will be followed serially Potassium which is elevated will be corrected Tomorrow we will begin prep for colonoscopy EGD and colonoscopy to be done morning. Subjective Date/time seen: 01/07/23 16:48 there is no further bleeding evident. She has been tolerating her diet. She began having a pain in the mid upper left abdomen radiating towards the back about 4:00 a.m. this morning. She states that it has been coming and going. She was about to be discharged when she had formed a nurse that it was about an 8 or 10. I suggested been till. She received a been till tablet and had significant relief within an hour. The pain however has returned. Is a vaguely localized discomfort in the mid to upper abdomen. She has had no bowel movements today. Exam Const: General: cooperative and healthy appearing Orientation/consciousness: patient oriented x3 HENMT: Head: normal to inspection Ears: hearing grossly normal bilaterally Mouth: Yes Normal oral and palatal mucosa present Eyes: General: appearance normal, both eyes and all related structures Neck: Neck: normal visual inspection Chest: Chest palpation & inspection: normal inspection of the chest Resp: Effort & Inspection: normal respiratory effort Auscultation: clear to auscultation bilaterally Cardio: Rate: regular rate Rhythm: regular rhythm GI: Inspection: normal to inspection and other (Suprapubic catheter) GI Palp: Yes Soft to palpation, Yes Tenderness to palpation present (GI) ( Left mid abdomen and left upper quadrant.) and Yes No hepatosplenomegaly present Auscultation: normal bowel sounds Urinary Catheter: Urinary Catheter: other (Suprapubic) Skin: General skin exam: normal color and no jaundice Neuro: General: patient oriented x3 Speech: Expressive aphasia present Objective Data Vital Signs Vital Signs: Vital Signs - 24 hr 01/06/23 18:00 01/06/23 17:00 01/06/23 19:49 Temperature 36.2 C L Pulse Rate 65
[2023-01-07 17:07] LABS: Hematocrit 25.1 % (37.0-47.0); Hemoglobin 7.8 g/dL (12.0-15.0); Immature Platelet Fraction Pct 6.4 % (0.9-11.2); Mean Corpuscular HGB Conc 31.1 g/dl (32-36); Mean Corpuscular Hemoglobin 31.1 pg (26-34); Mean Platelet Volume 11.2 fl (7.4-10.4); Platelet Count Result 140 k/mm3 (150-375); Red Blood Count 2.51 M/mm3 (4.2-5.4); Red Cell Distribution Width 13.3 % (11.5-14.5); White Blood Count 6.9 K/mm3 (4.5-10.0)
--- NOTE | 2023-01-07 18:10 | PC.NURSE ---
This patient, Nicole Patricia, was transferred to [facility] on 01/07/23 at 1810. Personal belongings sent with patient. Appropriate documentation sent with patient.
--- NOTE | 2023-01-07 18:14 | PC.NURSE ---
Pt received from IMU into room 305-2 at 1810. Pt oriented to unit's policies and procedures.
--- NOTE | 2023-01-07 19:37 | PC.NURSE ---
Pt received from IMU on this nurse's shift. Pt was supposed to discharge home but was having unresolved abdominal pain. Dr. Vazquez aware and ordered bentyl PO x1 with relief of symptoms after administration, however symptoms returned later. Current plan is to be kept overnight with monitoring of her symptoms with bentyl available if needed for her pain. Discharge order cancelled for today
[2023-01-07] MEDS: DICYCLOMINE HCL 10 MG CAPSULE PO (20:46)
[2023-01-07] MEDS: ATORVASTATIN 40 MG TABLET 80 MG PO (20:48)
[2023-01-08 00:14] VITALS: O2SAT 98
[2023-01-08 04:00] VITALS: BP 134/58; PULSE 67; RESP 13; TEMP 36.6; O2SAT 99
[2023-01-08] MEDS: SUCRALFATE 1 GM TABLET PO ×2 (06:06→10:53)
--- NOTE | 2023-01-08 07:10 | WPDGIPROGNO ---
Progress Note: A&P Assessment and Plan (1) GI bleed: Code(s): K92.2 - Gastrointestinal hemorrhage, unspecified Status: Acute Assessment and Plan: Bleeding began this morning, the patient it is nurse states that she passed large amount here in the emergency department. The patient denies pain 01/05/2023 hemoglobin dropped to 6.4 last night. After transfusion with 2 units she is up to 8.6. She denies any pain. 01/07/2023 no further bleeding. Hemoglobin is stable. (2) History of gastric bypass: Code(s): Z98.84 - Bariatric surgery status Status: Acute Assessment and Plan: She had a bypass many years ago. 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 Since then has been no sign of bleeding. She denies any abdominal pain. She has been maintained on pantoprazole. Apparently she also takes misoprostol daily. 01/07/2023 because of the location of her ulcer which is likely chronic. Will maintain her on sucralfate indefinitely. (4) Ischemic cerebrovascular accident (CVA): Onset Date: 08/14/20 Code(s): I63.9 - Cerebral infarction, unspecified Status: Acute Assessment and Plan: She has residual expressive aphasia. Aspirin will be held while she is here. (5) Left upper quadrant pain: Code(s): R10.12 - Left upper quadrant pain Status: Acute Assessment and Plan: this is a new pain that developed at 4:00 a.m. this morning. It has waxed and waned throughout the day. Seem to dissipate completely after she received oral dicyclomine but now has returned that was not as bad. KUB was done which was normal. She denies nausea. Will continue dicyclomine Q 6 hours and obtain CBC to rule out infectious process 01/08/2023 today she states that the discomfort she had yesterday is gone except that she is tender just above into the left of her suprapubic catheter. She has not been followed by anybody from urology. The catheter was placed a little over 2 years ago. I will see if SHIKHA can see her today Plan after discharge we will keep her on sucralfate indefinitely. 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 She has had he did an EGD a few months ago and did not see an ulcer as far she can recall. It however appears similar to the 1 that was found at our institution by Dr. Schwarz 7 months ago. Subjective Date/time seen: 01/08/23 07:10 this severe pain that she was experiencing yesterday is gone but she says now she is simply sore in insure so above her suprapubic catheter. It is she says somewhat tender to the touch but been till seems to be helping. She would like to eat solid food. She has no nausea. Exam Const: General: cooperative and healthy appearing Orientation/consciousness: patient oriented x3 HENMT: Head: normal to inspection Ears: hearing grossly normal bilaterally Mouth: Yes Normal oral and palatal mucosa present Eyes: General: appearance normal, both eyes and all related structures Neck: Neck: normal visual inspection Chest: Chest palpation & inspection: normal inspection of the chest Resp: Effort & Inspection: normal respiratory effort Auscultation: clear to auscultation bilaterally Cardio: Rate: regular rate Rhythm: regular rhythm GI: Inspection: normal to inspection and other (Suprapubic catheter) Auscultation: normal bowel sounds Urinary Catheter: Urinary Catheter: other (Suprapubic) Skin: General skin exam: normal color and no jaundice Neuro: General: patient oriented x3 Speech: Expressive aphasia present Objective Data Vital Signs Vital Signs: Vital Signs - 24 hr 01/07/23 08:00 01/07/23 08:16 01/07/23 08:58 Temperature 36.1 C L Pul
[2023-01-08] MEDS: levETIRAcetam 500 MG TABLET 1500 MG PO (08:21)
[2023-01-08] MEDS: carvediloL 12.5 MG TABLET PO (08:21)
[2023-01-08] MEDS: PYRIDOXINE HCL 50 MG TABLET 100 MG PO (08:21)
[2023-01-08] MEDS: CITALOPRAM HYDROBROMIDE 20 MG TABLET PO (08:22)
[2023-01-08] MEDS: busPIRone HCL 5 MG TABLET 15 MG PO (08:22)
[2023-01-08] MEDS: SULFAMETHOXAZOLE/TRIMETHOPRIM 800/160 MG DS TABLET 1 TAB PO (08:22)
[2023-01-08] MEDS: miSOPROStol 200 MCG TABLET PO (08:22)
--- NOTE | 2023-01-08 09:28 | PM.IMPN ---
Progress Note: A&P Assessment and Plan (1) Hematochezia: Code(s): K92.1 - Melena Status: Acute Assessment and Plan: Past medical history of PUD with bleed, required cauterization and was also anemic at that time Trend CBC q.4 - initially 9.6 NPO Consult to GI - George. Recommended holding aspirin, prepped for colonoscopy tomorrow and bisacodyl. Given pantoprazole 40 IV in the ED. Continue, pantoprazole IV continuous 15 mL/hour. Type and screen sent Vital signs q.4 Positive blood per ED physician digital rectal exam Verbal consent for blood in the case of emergency, if not emergent obtain written consent 01/05: still bleeding, appreciate GI consult, hemoglobin stable for now 01/06: EGD + colonoscopy, hgb remains stable 01/07: EGD showed intestinal ulcers, recommended Carafate 1 g t.i.d. indefinitely for chronic ulcers, colonoscopy showed diverticulosis, hemorrhoids and cecal polyps, follow-up with biopsy results and avoid aspirin and NSAIDs for 1 week (2) Hematemesis: Code(s): K92.0 - Hematemesis Status: Acute Assessment and Plan: resolved (3) Hyperkalemia: Code(s): E87.5 - Hyperkalemia Status: Acute Assessment and Plan: Patient reports she takes 2 pills b.i.d. of potassium, hold home medication EKG impression SINUS RHYTHM NONSPECIFIC ST & T-WAVE ABNORMALITY COMPARED TO ECG 06/02/2022 12:34:08 NO SIGNIFICANT CHANGES Given 1 L of IV fluids and ED. creatinine currently 1.5, previously 1.1. Baseline appears to be between 1.1 and 1.4. Continue to trend. Initially 6, repeated and 4.9 Trend, add magnesium and phosphate resolved, monitor (4) Expressive aphasia: Code(s): R47.01 - Aphasia Status: Acute Assessment and Plan: Baseline post previous CVA (5) Laryngospasm: Code(s): J38.5 - Laryngeal spasm Status: Acute Assessment and Plan: Check CT soft tissue neck, consider ENT consult Plan Chronic Conditions -currently receiving treatment for UTI: Continue cephalexin and Bactrim -Will hold home p.o. pantoprazole -continue BuSpar, vitamin B6, atorvastatin, Keppra, Celexa, carvedilol, Cytotec as tolerated by patient Diet: NPO GI Prophylaxis: Pantoprazole IV, continuous DVT Prophylaxis: SCDs. Pharmacological contraindicated due to active bleeding Code Status: DNR Subjective Date/time seen: 01/08/23 09:28 Interval history: 82 year old female with past medical history CVA with residual word-finding difficulties and dysarthria, PUD, suprapubic catheter, gastric bypass presents with bloody bowel movement x3. No overnight events noted. No chest pain or shortness of breath. No nausea, vomiting or diarrhea. No fevers or chills. Patient does report intermittent episodes of difficulty breathing or she feels like her throat is spasming closed. Vital signs remained stable during these episodes. She states she has had these since her stroke and gets them once or twice a month momin for the last 7 months, however, they have been much more frequent since her admission. She received a dose of racemic epinephrine inhaled yesterday with minimal improvement. Ativan has been helping, as well. Review of Systems Review of Systems: 12 point review of systems was assessed and was negative except as noted in the HPI Exam Narrative: General: No acute distress, alert and oriented per baseline HEENT: Atraumatic, normocephalic, mucous membranes moist CV: Regular rate and rhythm, S1, S2 Lungs: Clear to auscultation bilaterally, no rales or crackles noted, no wheezes, good air entry Abdomen: Soft, nontender, nondistended Extremities: Normal to inspection Skin: No rashes noted, no lesions or wounds seen Psych: Euthymic, normal affect Objective Data Vital Signs Vital Signs: Vital Signs - 24 hr 01/07/23 10:00 01/07/23 11:49 01/07/23 12:00 Temperature 97.8 F Pulse Rate 62
--- NOTE | 2023-01-08 20:20 | PC.NURSE ---
Patient called with questions regarding medications. All questions answered.
== END 2023-01-08 12:25 | disposition home or self-care (01) ==
LOC: ANHED 16:51 → ANHIMU 01-05 10:38 → ANH3MEDSUR 01-08 11:57 → ANH2MED 01-10 12:20 → ANH3MEDSUR 01-10 12:20 → ANHIMU 01-10 12:20
PROVIDERS: Internal Medicine; Internal Medicine Gastroenterology; Physician Assistant; Student in an Organized Health Care Education/Training Program; Admitting Provider Family Medicine; Emergency Provider Emergency Medicine; PCP Internal Medicine Gastroenterology; Visit Provider Student in an Organized Health Care Education/Training Program
PROC: 0DJ08ZZ Inspection of Upper Intestinal Tract, Via Natural or Artificial Opening Endoscopic (ICD-10-PCS; CPT 43235; principal; 2023-01-06 13:30)
DX: K31.89 Other diseases of stomach and duodenum (principal); K63.3 Ulcer of intestine; K92.1 Melena; Z98.84 Bariatric surgery status; D12.0 Benign neoplasm of cecum; K57.30 Diverticulosis of large intestine without perforation or abscess without bleeding; K64.4 Residual hemorrhoidal skin tags; Z86.010 Personal history of colon polyps
CPT/HCPCS: 43236; 45385; 45380; 43255; 36415; 36430; 70490; 74018; 74176; 80053; 81001; 82550; 82948; 83735; 84100; 84132; 85014; 85018; 85025; 85027; 85055; 85610; 85730; 86850; 86900; 86901; 86923; 88305; 93005; 96361; 96374; 99285; A9270; C9113; G0378; J0171; J0613; J2060; J2704; J3475; J7040; J7120; P9016

== ENCOUNTER 2023-01-31 09:43 | Inpatient (IN) | payer MEDICARE, OTHER, SELFPAY ==
[2023-01-31] VITALS (27 sets, daily range): BP systolic 123–169; BP diastolic 62–93; PULSE 64–86; RESP 14–31; TEMP 36.4–37.2; O2SAT 98–100; BMI 20.7
--- NOTE | ~2023-01-31 | XR_ITS ---
EXAMINATION: XR chest 1V portable DATE: 02/02/2023 14:15 INDICATION: Sudden onset chest pain and increasing shortness of breath TECHNIQUE: Portable AP view of the chest was obtained. COMPARISON: Chest radiograph date FINDINGS: Calcified nodules in the left mid and lower lung zone consistent with old granulomatous disease. No o ther airspace opacities, pulmonary edema, pleural effusion or pneumothorax. Mild cardiomegaly. Postop erative change of anterior spinal fusion with graft cage projecting over the cervicothoracic junction . Left pectoral implantable phototypesetting equipment monitor. Postoperative changes with multiple surgical clips and a suture line in the left upper quadrant. IMPRESSION: 1. Mild cardio likely. No acute cardiopulmonary disease. Reviewed, dictated and finalized at location A.
--- NOTE | ~2023-01-31 | CT_ITS ---
EXAMINATION: CT abdomen pelvis w con DATE: 01/31/2023 11:30 INDICATION: Epigastric abdominal pain TECHNIQUE: Computed tomography (CT) of the abdomen and pelvis was performed with 100 CC Omnipaque 350 intravenous contrast. Automated exposure control and iterative reconstruction technique were employe d. Exam dose: 201.22 mGy-cm total exam DLP. COMPARISON: 01/07/2023 KUB 01/04/2023 CT abdomen pelvis FINDINGS: The lung bases are clear of infiltrate or consolidation. Left lower lobe calcified pulmonar y granuloma. Cardiomegaly. No pericardial or pleural effusion. The gallbladder is absent, likely resulting in the mild prominence of the intrahepatic bile ducts, bi le duct dilatation up to approximately 9 mm. No hepatic space-occupying mass lesion. Normal splenic size. Multiple splenic calcified granulomas. M ild prominence of pancreatic duct diameter is within normal range. Approximately 11 x 20 mm hypoattenuating lesion of the pancreatic head/uncinate process with attenuat ion of approximately 20 Hounsfield units. Consider MRI for further evaluation. Normal morphology of the adrenal glands. There is right renal scarring. There are occasional cysts of the right kidney, measuring up to approx imately 12 mm maximal dimension. There is an approximately 2 mm nonobstructing lower pole right renal calculus. No ureteral calculus or hydroureteronephrosis is noted The left kidney is very severely atrophic. There is a suprapubic Hammer catheter within the urinary bladder. Mild diffuse bladder wall thickening . Postoperative change in the left upper quadrant and left midabdomen likely related to gastric bypass surgery. There is a prominent of fecal material in the rectosigmoid area. No bowel obstruction is not ed. Normal caliber of the abdominal aorta. No intraperitoneal or retroperitoneal or pelvic mass lesion or adenopathy or ascites. Again noted is a metallic density in the posterior lower right pelvic area Postoperative change from anterior and posterior lumbosacral surgical fusion. IMPRESSION: Cardiomegaly Status post cholecystectomy Probable gastric bypass surgery Nonspecific cystic area at the pancreatic head/uncinate process; consider MRI for further evaluation Severe left renal atrophy Small nonobstructing lower pole right renal calculus Small right renal cysts Suprapubic urinary bladder catheter Reviewed, dictated and finalized at [facility]. Reviewed, dictated and finalized at [facility]. IMPRESSION: Cardiomegaly Status post cholecystectomy Probable gastric bypass surgery Nonspecific cystic area at the pancreatic head/uncinate process; consider MRI f or further evaluation Severe left renal atrophy Small nonobstructing lower pole right renal calculus Small right renal cysts Suprapubic urinary bladder catheter
--- NOTE | 2023-01-31 10:03 | ECG_ITS ---
Measurements Intervals [place] Rate: 67 P: 73 CO: 166 QRS: 43 QRSD: 80 T: 61 QT: 402 QTc: 427 Interpretive Statements SINUS RHYTHM NONSPECIFIC ST & T-WAVE ABNORMALITY COMPARED TO ECG 01/04/2023 20:57:53 ABNORMAL ECG NO SIGNIFICANT CHANGES Electronically Signed On 01-31-2023 11:12:38 CDT by Cornelio Weinberg M.D.
[2023-01-31 10:13] LABS: Basophils Percent Auto 0.3 % (0.2-1.2); Immature Granulocyte Absolute 0.04 K/mm3 (0.00-0.031); Immature Granulocyte Percent A 0.6 % (0-0.5); Lymphocytes Absolute Auto 1.37 K/mm3 (0.9-3.2); Lymphocytes Percent Auto 19.5 % (18.3-44.2); Mean Corpuscular HGB Conc 30.7 g/dl (32-36); Mean Corpuscular Hemoglobin 28.2 pg (26-34); Mean Corpuscular Volume 91.7 fl (80-100); Mean Platelet Volume 10.6 fl (7.4-10.4); Monocytes Absolute Auto 0.4 K/mm3 (0.1-0.6); Neutrophils Absolute Auto 5.2 K/mm3 (1.3-6.7); Neutrophils Percent Auto 73.6 % (45.5-73.1); Platelet Count Result 224 k/mm3 (150-375); Red Blood Count 2.06 M/mm3 (4.2-5.4); Red Cell Distribution Width 13.9 % (11.5-14.5)
[2023-01-31] MEDS: SODIUM CHLORIDE 0.9% IV 1,000 ML 999 ML IV CONT (10:18)
[2023-01-31 10:19] LABS: Hematocrit 18.9 % (37.0-47.0); Hemoglobin 5.8 g/dL (12.0-15.0)
[2023-01-31] MEDS: fentaNYL CITRATE INJ (*CRX) 100 MCG/2 ML VIAL 50 MCG IV PUSH (10:19)
[2023-01-31] MEDS: PANTOPRAZOLE SODIUM IV 40 MG VIAL 80 MG IV PUSH (10:20)
[2023-01-31 10:28] LABS: INR 1.3; Prothrombin Time 16.5 Seconds (11.1-14.7)
[2023-01-31 10:29] LABS: Partial Thromboplastin Time 24.1 SECONDS (22.3-36.8)
[2023-01-31 10:40] LABS: Anion Gap 6 mmol/L (8-16); Blood Urea Nitrogen 46 mg/dL (7-17); Carbon Dioxide 22 mmol/L (22-30); Chloride 105 mmol/L (98-107); Estimated CRCL calculation 29 ml/min; Potassium 4.8 mmol/L (3.4-5.0); Sodium 133 mmol/L (137-145)
[2023-01-31 10:41] LABS: Alanine Aminotransferase 29 U/L (6-35); Albumin Level 3.2 g/dL (3.5-5.1); Alkaline Phosphatase 54 U/L (38-126); Aspartate Amino Transferase 23 U/L (14-36); Bilirubin,Total 0.3 mg/dL (0.2-1.3); Calcium 8.4 mg/dL (8.4-10.2); Estimated Glomerular Filt Rate 53; Glucose 129 mg/dL (65-110)
[2023-01-31] MEDS: SODIUM CHLORIDE 0.9% IV 250 ML 30 ML IV CONT ×2 (11:48→20:53)
--- NOTE | 2023-01-31 12:19 | PC.NURSE ---
Per DR Lyn the first unit RBC were given to the patient at an increased rate, but still through a pump. Second unit is running at 125ml/hr
[2023-01-31] MEDS: TUBING, BLOOD PLUM PUMP TUBING 1 EACH XX ×2 (12:32)
--- NOTE | 2023-01-31 12:34 | ED.GIBLEED ---
HPI - GI Bleed General Chief complaint: GI Bleed Stated complaint: GI bleed Time Seen by Provider: 01/31/23 09:50 History of Present Illness HPI Narrative: HPI obtained from the patient's daughter due to patient's baseline aphasia This is an 82-year-old female, with history of stroke and GI bleed (most recently 25 days ago at which time she underwent ulcer ablation), who returns to the emergency department with melenic stools and confusion. The patient's daughter states the patient called her saying that she needed help. On arrival. The patient's daughter noted the patient had a large melanotic stool. She was also complaining of abdominal pain. It is difficult to assess severity, though the patient appeared to be in distress. Related Data Home Medications Medication Instructions Recorded Confirmed misoprostol 200 mcg tablet 200 mcg PO DAILY 11/05/19 01/31/23 atorvastatin 80 mg tablet 80 mg PO HS 08/29/20 01/31/23 aspirin 81 mg chewable tablet 81 mg PO DAILY 05/11/22 01/31/23 carvedilol 12.5 mg tablet (Coreg) 12.5 mg PO BID 05/11/22 01/31/23 citalopram 20 mg tablet 20 mg PO DAILY 05/11/22 01/31/23 levetiracetam 1,000 mg tablet 1,500 mg PO BID 05/11/22 01/31/23 buspirone 15 mg tablet 15 mg PO TID 01/04/23 01/31/23 pantoprazole 40 mg tablet,delayed 40 mg PO BID 01/04/23 01/31/23 release pyridoxine (vitamin B6) 100 mg 100 mg PO DAILY 01/04/23 01/31/23 tablet cephalexin 250 mg capsule 250 mg PO BID 01/31/23 01/31/23 potassium bicarbonate-citric acid 25 meq PO BID 01/31/23 01/31/23 25 mEq effervescent tablet (Klor-Con/EF) Allergies Allergy/AdvReac Type Severity Reaction Status Date / Time naproxen Allergy Severe cardiac Verified 01/31/23 10:32 arrest NSAIDS (Non-Steroidal Allergy Severe cardiac Verified 01/31/23 09:57 Anti-Inflamma arrest morphine Allergy Mild unknown Verified 01/31/23 09:57 Review of Systems Review of Systems: Limited and obtained through the patient's daughter due to patient's aphasia CONSTITUTIONAL: Denies fever, chills, or sweats. CARDIOVASCULAR: Denies chest pain, palpitations, or edema. RESPIRATORY: Denies cough or dyspnea. GASTROINTESTINAL: Abdominal pain, melena denies nausea, vomiting, or diarrhea. NEUROLOGIC: Denies headache, or weakness. [facility] Past Medical History Medical History (Updated 01/31/23 @ 14:29 by Alicia Hernandez PA-C) Atrophy of left kidney Expressive aphasia Gastrojejunal ulcer with hemorrhage History of gastroscopy 08/18/09, 09/09/09, with structure Hypertension Iron (Fe) deficiency anemia Ischemic cerebrovascular accident (CVA) (08/14/20) Treated with tPA and thrombectomy Seizure disorder Urinary incontinence Vaginal delivery 1960, , full term, female, 7#10 1969, , full term, female, 7#10 Surgical History Surgical History H/O rectal polypectomy 11/13/08, 08/27/03 H/O right heart catheterization 12/17/08 unsure if lt or rt History of breast biopsy 06/09/10, stereotactic, biopsy rt breast History of cholecystectomy 05/09/09 History of endoscopy 12/16/09, 02/10/10, 08/25/10, 04/26/18 History of esophagogastroduodenoscopy (EGD) 04/25/12, with upper GI History of eye surgery 11/05/14 cataract right eye, 11/20/14 cataract left eye, 07/28/18 bilateral removal of scar tissue 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ing MARCUS L4-5, L3-4, Doscectomy/fusion lt iliac crest graft 10/12/01 cervical discectomy and fusion
[2023-01-31 13:09] LABS: Hematocrit 19.5 % (37.0-47.0); Hemoglobin 6.2 g/dL (12.0-15.0)
--- NOTE | 2023-01-31 13:55 | PM.IMHP ---
H&P: HPI History of Present Illness Date/Time: 01/31/23 13:05 Chief Complaint: Dark stools. Narrative: This is a very pleasant 82-year-old female status post Marlee-en-Y in January 2009 with history of recurrent GI bleed who presented to the emergency department via private vehicle from home for evaluation of dark stools. The patient is able to provide a fairly good history however she suffers from mild expressive aphasia and her daughter provides additional information, with the patient's permission. She was admitted to the hospital at the beginning of this month with melena, found to have evidence of intestinal ulcers near the site of her prior gastric bypass. It was felt that these ulcers were chronic and she was told that she needed to continue on Carafate long-term. She had been doing okay since that time up until about 01:00 when she had a sudden urge to have a bowel movement reports passing a large black stool associated with brief loss of consciousness while on the toilet. She has had several other dark stool since that time. Blood pressure has been stable since arrival to the ED. Her hemoglobin hematocrit were 5.8 and 18.9% respectively. She was transfused 2 units packed red blood cells in the ED and she is being admitted to the IMU in this setting for close monitoring and GI consultation. Review of Systems Review of Systems: Twelve systems were reviewed. No fever, chills, or sweats. No cold or flu symptoms. No chest pain or shortness of breath. She denies nausea, vomiting, and hematemesis. No epigastric or abdominal pain. Except as documented, all other systems were reviewed and are negative. [facility] Past Medical History Medical History (Updated 01/31/23 @ 14:29 by Alicia Hernandez PA-C) Atrophy of left kidney Expressive aphasia Gastrojejunal ulcer with hemorrhage History of gastroscopy 08/18/09, 09/09/09, with structure Hypertension Iron (Fe) deficiency anemia Ischemic cerebrovascular accident (CVA) (08/14/20) Treated with tPA and thrombectomy Seizure disorder Urinary incontinence Vaginal delivery 1960, , full term, female, 7#10 1969, , full term, female, 7#10 Surgical History Surgical History H/O rectal polypectomy 11/13/08, 08/27/03 H/O right heart catheterization 12/17/08 unsure if lt or rt History of breast biopsy 06/09/10, stereotactic, biopsy rt breast History of cholecystectomy 05/09/09 History of endoscopy 12/16/09, 02/10/10, 08/25/10, 04/26/18 History of esophagogastroduodenoscopy (EGD) 04/25/12, with upper GI History of eye surgery 11/05/14 cataract right eye, 11/20/14 cataract left eye, 07/28/18 bilateral removal of scar tissue 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, laparoscopic, [id number]-[id number] History of hysterectomy 07/1982 total History of knee replacement 03/31/04 bilateral History of laparoscopy 03/17/10, reduction of small bowel obstruction, release of internal hernia History of meniscectomy of left knee 05/18/00 orthoscopic with lateral release History of meniscectomy of right knee 03/29/03 orthoscopic with lateral release History of spinal fusion 03/14/98 cervical discectomy and fusion of c4-6 10/27/98 anterior interbody fusion level using MARCUS L4-5, L3-4, Doscectomy/fusion lt iliac crest graft 10/12/01 cervical discectomy and fusion of c6-7 History of spinal surgery 02/10/16 lumbar decompressive laminectomy, transformal lumbar interbody fusion with PEEK spacers, posterior intertransverse fusion, posterior spinal instrumentation, harvesting bone graft History of stress incontinence procedure using tension free vaginal tape 05/18/01 Hx of breast surgery 07/27/10, mastopexy Family History Family History Grandparent Family history of malignant neoplasm of ovary Father Family history of lung cancer Sibling Family history of lung cancer Social History Social History (Updated
--- NOTE | 2023-01-31 14:01 | ADMGEN ---
This patient, Nicole Patricia, was admitted to IMU Room 202-01. Patient/family oriented to hospital policies and general routines including ID bracelet, bed and alarms, visiting hours, pain management, procedures, bathroom and other care routines, personal items, smoking policy, room service/diet, and visiting hours. Information on how to activate the Rapid Response Team has been discussed. Patient/Family are encouraged to report perceived risks to care and to ask questions if they do not understand what they are told or what they should do.
--- NOTE | 2023-01-31 14:08 | WPDGICN ---
Assessment and Plan Assessment and plan (1) GI bleed: Qualifiers: GI bleed type/associated pathology: melena Qualified Code(s): K92.1 - Melena Code(s): K92.2 - Gastrointestinal hemorrhage, unspecified Status: Acute Assessment and Plan: Bleeding began last evening. It continued this morning. The patient denies pain . She has a known gastrojejunal ulcer, at the anastomosis from previous gastric bypass. she has just finished receiving her 2nd unit of blood. Initial hemoglobin was 5.8. It is have her discharge about 3 weeks ago it was 7.8. (2) History of gastric bypass: Code(s): Z98.84 - Bariatric surgery status Status: Acute Assessment and Plan: She had a bypass many years ago. 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 And she was readmitted abut 4 weeks ago and ulcer was again treated. She has been maintained on pantoprazole. Apparently she also takes misoprostol daily (4) Ischemic cerebrovascular accident (CVA): Onset Date: 08/14/20 Code(s): I63.9 - Cerebral infarction, unspecified Status: Acute Assessment and Plan: She has residual expressive aphasia. Aspirin will be held while she is here. Plan She will be admitted H&H will be followed serially EGD tomorrow GI Consult Note Consult date/time: 01/31/23 14:08 HPI: Nicole Patricia is a 82 year old female who came to the emergency room this morning with history of having had melanotic stools, very dark red since yesterday. The same thing happened about 4 weeks ago. At that time when she was found have a gastrojejunal ulcer, anastomotic ulcer due to previous gastric bypass. The same past ulcer had been seen in May this year by Dr. Schwarz. She had been maintained on pantoprazole and we added sucralfate. Also she takes misoprostol daily. She had her surgery about 11 years ago in-hospital which is no longer in existence in [place]. Her daughter states she has had several esophageal dilatation treatments over the years. She denies abdominal pain or nausea. She would like to have something to drink. I discussed with her previously that these type ulcers tend not to heal and she may at some point require revision of her anastomosis which would need to be done by a surgeon who is proficient in gastric bypasses. [facility] Past Medical History Medical History Acute blood loss anemia Atrophy of left kidney Expressive aphasia Gastrojejunal ulcer with hemorrhage History of gastroscopy 08/18/09, 09/09/09, with structure Hypertension Iron (Fe) deficiency anemia Ischemic cerebrovascular accident (CVA) (08/14/20) Treated with tPA and thrombectomy Rectal bleeding Urinary incontinence Vaginal delivery 1960, , full term, female, 7#10 1969, , full term, female, 7#10 Surgical History Surgical History H/O rectal polypectomy 11/13/08, 08/27/03 H/O right heart catheterization 12/17/08 unsure if lt or rt History of breast biopsy 06/09/10, stereotactic, biopsy rt breast History of cholecystectomy 05/09/09 History of endoscopy 12/16/09, 02/10/10, 08/25/10, 04/26/18 History of esophagogastroduodenoscopy (EGD) 04/25/12, with upper GI History of eye surgery 11/05/14 cataract right eye, 11/20/14 cataract left eye, 07/28/18 bilateral removal of scar tissue 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on of small bowel obstruction, release of internal hernia History of meniscectomy of left knee 05/18/00 orthoscopic with lat
--- NOTE | 2023-01-31 14:55 | PC.NURSE ---
Pt admitted with supra-pubic catheter. Urinary catheter bag attached to catheter for drainage while hospitalized.
[2023-01-31 15:02] LABS: Hematocrit 22.1 % (37.0-47.0); Hemoglobin 7.1 g/dL (12.0-15.0)
[2023-01-31 15:57] LABS: Appearance Urine Clear (Clear); Bacteria Urine None Seen /hpf; Bilirubin Urine Negative (Negative); Blood Urine Negative (Negative); Color Urine Yellow (Yellow); Glucose Urine UA Negative (Negative); Ketones Urine Negative (Negative); Leukocyte Esterase Ur Trace LEU/UL (Negative); Nitrate Urine Negative (Negative); Non Pathogenic Casts 0-2; Protein Urine Negative (Negative); RBC Urine 0-2 /hpf (0-2); Squamous Epithelial Cell Urine None seen /hpf (Few); Urobilinogen Urine 0.2 mg/dL (<2.0); WBC Urine 0-5 /hpf
[2023-01-31 16:17] LABS: Add Urine Microscopic? YES; Specific Grav Ur 1.038 (1.001-1.035)
[2023-01-31 19:25] LABS: Hemoglobin 6.8 g/dL (12.0-15.0)
[2023-01-31] MEDS: PANTOPRAZOLE SODIUM IV 40 MG VIAL IV PUSH (20:53)
[2023-01-31] MEDS: levETIRAcetam 500 MG TABLET 1500 MG PO (21:03)
[2023-01-31] MEDS: carvediloL 12.5 MG TABLET PO (21:04)
[2023-01-31] MEDS: SUCRALFATE 1 GM TABLET PO (21:04)
[2023-02-01] VITALS (27 sets, daily range): BP systolic 118–153; BP diastolic 58–83; PULSE 63–82; RESP 16–21; TEMP 36.2–37.1; O2SAT 94–100
[2023-02-01 05:02] LABS: Hematocrit 25.2 % (37.0-47.0); Hemoglobin 8.2 g/dL (12.0-15.0); Mean Corpuscular HGB Conc 32.5 g/dl (32-36); Mean Corpuscular Hemoglobin 28.7 pg (26-34); Mean Corpuscular Volume 88.1 fl (80-100); Mean Platelet Volume 10.6 fl (7.4-10.4); Platelet Count Result 159 k/mm3 (150-375); Red Blood Count 2.86 M/mm3 (4.2-5.4); Red Cell Distribution Width 14.9 % (11.5-14.5); White Blood Count 5.5 K/mm3 (4.5-10.0)
[2023-02-01 05:30] LABS: Anion Gap 3 mmol/L (8-16); Blood Urea Nitrogen 27 mg/dL (7-17); Calcium 8.2 mg/dL (8.4-10.2); Carbon Dioxide 24 mmol/L (22-30); Chloride 106 mmol/L (98-107); Estimated CRCL calculation 26 ml/min; Estimated Glomerular Filt Rate 48; Glucose 90 mg/dL (65-110); Magnesium 1.7 mg/dL (1.6-2.3); Potassium 3.9 mmol/L (3.4-5.0); Sodium 133 mmol/L (137-145)
[2023-02-01] MEDS: SUCRALFATE 1 GM TABLET PO ×3 (06:31→20:35)
[2023-02-01] MEDS: carvediloL 12.5 MG TABLET PO ×2 (08:36→20:33)
[2023-02-01] MEDS: levETIRAcetam 500 MG TABLET 1500 MG PO ×2 (08:39→20:35)
[2023-02-01] MEDS: PANTOPRAZOLE SODIUM IV 40 MG VIAL IV PUSH ×2 (08:39→20:35)
--- NOTE | 2023-02-01 11:20 | PC.NURSE ---
1115- to GI lab via stretcher with GI staff
[2023-02-01] MEDS: LACTATED RINGERS 1,000 ML 150 ML IV CONT (11:31)
[2023-02-01] MEDS: EPINEPHrine INJ 1 MG/10 ML SYRINGE 0.2 MG XX (12:26)
--- NOTE | 2023-02-01 13:26 | PC.NURSE ---
1300 - returned ot room from GI lab- EGD completed- awake alert- VSS monitor SR 65- full liquid diet
[2023-02-01] MEDS: miSOPROStol 200 MCG TABLET PO (14:59)
--- NOTE | 2023-02-01 17:33 | PM.IMPN ---
Progress Note: A&P Assessment and Plan (1) GI bleed: Qualifiers: GI bleed type/associated pathology: melena Qualified Code(s): K92.1 - Melena Code(s): K92.2 - Gastrointestinal hemorrhage, unspecified Status: Acute Assessment and Plan: The patient presented to the emergency department for evaluation of melena. EGD on 01/06 showing singled crated ulcer with a visible non-bleeding vessel in the proximal jejunum that was injected and cauterized. CT Abd/Pelvis showing gastric bypass, left renal atrophy (known), and pancreatic cystic lesion. Hgb was 5.8 on admission and she was transfused 2U. Hgb climbed to 8.2. GI consulted. Repeat EGD today showing singled crated ulcer in the proximal jejunum. There was a flat spot and the lesion was cauterized and epi injected. It appeared slightly smaller in size then in 01/06 She had a colonoscopy on 01/06 which showed cecal polyp that was removed, external hemorrhoids and diverticulosis. Continue Protonix, Sucralfate and misoprostol. MRI for pancreatic mass as outpatient Appreciate GI input. (2) Acute blood loss anemia: Code(s): D62 - Acute posthemorrhagic anemia Status: Acute Assessment and Plan: As above. Follow HH to ensure stability (3) History of stroke: Code(s): Z86.73 - Personal history of transient ischemic attack (TIA), and cerebral infarction without residual deficits Status: Acute Assessment and Plan: She has a history of ischemic stroke with residual expressive aphasia Aspirin is on hold. Resume Lipitor Will also resume her buspirone and citalopram (4) Seizure disorder: Code(s): G40.909 - Epilepsy, unspecified, not intractable, without status epilepticus Status: Acute Assessment and Plan: No history of recent seizures. Continue levetiracetam. Plan DVT Prophylaxis - SCDs Code status- DNR Subjective Date/time seen: 02/01/23 0900 Interval history: 82yo female with hx of CVA, suprapubic cath for retention(?), seizures and status post Marlee-en-Y in January 2009 with history of recurrent GI bleed who presented to the emergency department via private vehicle from home for evaluation of dark stools.? Slept well. Having abdominal pain and black stools prior to admission. No CP or SOB. She has word finding problems and gets words mixed up. Exam Narrative: AF 97.8 153/79 63 16 100% ra Gen - NARD Chest - CTA bilaterally, nml RR CV - RRR S1/S2. Tele showing PVCs and NSVT Abd - Soft, NT/ND, Positive BS. SP cath secured Ext - No pedal edema Neuro - Alert and appropriate. stuttering speech. word confusion Psych - Nml mood and affect Skin - Warm and dry Objective Data Vital Signs Vital Signs: Vital Signs - 24 hr 01/31/23 18:00 01/31/23 19:39 01/31/23 21:04 Temperature 98.7 F Pulse Rate 74 73 80 Respiratory Rate 14 Blood Pressure 123/67 Pulse Oximetry 100 Oxygen Delivery 01/31/23 20:00 01/31/23 20:00 01/31/23 22:00 Temperature Pulse Rate 73 73 70 Respiratory Rate 14 Blood Pressure Pulse Oximetry 100 Oxygen Delivery Room Air 01/31/23 22:58 01/31/23 23:51 01/31/23 23:51 Temperature 99 F Pulse Rate 79 76 76 Respiratory Rate 18 18 Blood Pressure 129/64 Pulse Oximetry 100 100 Oxygen Delivery Room Air 02/01/23 00:16 02/01/23 00:35 02/01/23 01:35 Temperature 97.9 F 98.7 F 98.6 F Pulse Rate 82 72 69 Respiratory Rate 18 18 16 Blood Pressure 139/83 131/77 124/68 Pulse Oximetry 98 98 96 Oxygen Delivery 02/01/23 02:00 02/01/23 02:35 02/01/23 03:01 Temperature 98.4 F 97.1 F L Pulse Rate 78 75 68 Respiratory Rate 16 18 Blood Pressure 145/65 H 137/66 Pulse Oximetry 100 97 Oxygen Delivery 02/01/23 03:11 02/01/23 03:31 02/01/23 03:31 Temperature Pulse Rate 68 66 66 Respiratory Rate 18 Blood Pressure Pulse Oximetry 97 Oxygen Delivery Room Air 02/01/23 06:00 02/01/23 07:5
[2023-02-01 18:31] LABS: Hematocrit 23.3 % (37.0-47.0); Hemoglobin 7.5 g/dL (12.0-15.0)
[2023-02-01] MEDS: ATORVASTATIN 40 MG TABLET 80 MG PO (20:33)
[2023-02-02] VITALS (23 sets, daily range): BP systolic 97–147; BP diastolic 60–77; PULSE 60–75; RESP 14–34; TEMP 36.2–36.9; O2SAT 98–100
[2023-02-02 01:11] LABS: Hematocrit 23.8 % (37.0-47.0); Hemoglobin 7.8 g/dL (12.0-15.0)
[2023-02-02 05:12] LABS: Hematocrit 24.3 % (37.0-47.0); Hemoglobin 7.8 g/dL (12.0-15.0); Mean Corpuscular HGB Conc 32.1 g/dl (32-36); Mean Corpuscular Hemoglobin 28.1 pg (26-34); Mean Corpuscular Volume 87.4 fl (80-100); Mean Platelet Volume 11.1 fl (7.4-10.4); Platelet Count Result 157 k/mm3 (150-375); Red Blood Count 2.78 M/mm3 (4.2-5.4); Red Cell Distribution Width 14.7 % (11.5-14.5); White Blood Count 5.3 K/mm3 (4.5-10.0)
[2023-02-02 05:40] LABS: Anion Gap 1 mmol/L (8-16); Blood Urea Nitrogen 16 mg/dL (7-17); Calcium 8.1 mg/dL (8.4-10.2); Carbon Dioxide 25 mmol/L (22-30); Chloride 107 mmol/L (98-107); Estimated CRCL calculation 28 ml/min; Estimated Glomerular Filt Rate 53; Glucose 88 mg/dL (65-110); Potassium 3.7 mmol/L (3.4-5.0); Sodium 133 mmol/L (137-145)
[2023-02-02] MEDS: SUCRALFATE 1 GM TABLET PO ×4 (05:44→21:14)
--- NOTE | 2023-02-02 07:54 | PM.IMPN ---
Progress Note: A&P Assessment and Plan (1) GI bleed: Qualifiers: GI bleed type/associated pathology: melena Qualified Code(s): K92.1 - Melena Code(s): K92.2 - Gastrointestinal hemorrhage, unspecified Status: Acute Assessment and Plan: The patient presented to the emergency department for evaluation of melena. EGD on 01/06 showing singled crated ulcer with a visible non-bleeding vessel in the proximal jejunum that was injected and cauterized. CT Abd/Pelvis showing gastric bypass, left renal atrophy (known), and pancreatic cystic lesion. Hgb was 5.8 on admission and she was transfused 2u. Hgb climbed to 8.2. GI consulted. Repeat EGD today showing singled crated ulcer in the proximal jejunum. There was a flat spot and the lesion was cauterized and epi injected. It appeared slightly smaller in size then in 01/06 She had a colonoscopy on 01/06 which showed cecal polyp that was removed, external hemorrhoids and diverticulosis. Continue Protonix, Sucralfate and misoprostol. MRI for pancreatic mass as outpatient Appreciate GI input. (2) Acute blood loss anemia: Code(s): D62 - Acute posthemorrhagic anemia Status: Acute Assessment and Plan: As above. Follow HH to ensure stability Still with melena, monitor closely (3) History of stroke: Code(s): Z86.73 - Personal history of transient ischemic attack (TIA), and cerebral infarction without residual deficits Status: Acute Assessment and Plan: She has a history of ischemic stroke with residual expressive aphasia Aspirin is on hold. Resume Lipitor Will also resume her buspirone and citalopram (4) Seizure disorder: Code(s): G40.909 - Epilepsy, unspecified, not intractable, without status epilepticus Status: Acute Assessment and Plan: No history of recent seizures. Continue levetiracetam. Plan Disposition likely home tomorrow DVT Prophylaxis - SCDs Code status- DNR Subjective Date/time seen: 02/02/23 07:54 Interval history: 82yo female with hx of CVA, suprapubic cath for retention(?), seizures and status post Marlee-en-Y in January 2009 with history of recurrent GI bleed who presented to the emergency department via private vehicle from home for evaluation of dark stools.? No overnight events noted. No chest pain or shortness of breath. No nausea, vomiting or diarrhea. No fevers or chills. Still having melena. Had an episode of dyspnea with normal vital signs earlier today. Review of Systems Review of Systems: 12 point review of systems was assessed and was negative except as noted in the HPI Exam Narrative: General: No acute distress, alert and oriented per baseline HEENT: Atraumatic, normocephalic, mucous membranes moist CV: Regular rate and rhythm, S1, S2 Lungs: Clear to auscultation bilaterally, no rales or crackles noted, no wheezes, good air entry Abdomen: Soft, nontender, nondistended Extremities: Normal to inspection Skin: No rashes noted, no lesions or wounds seen Psych: Euthymic, normal affect Objective Data Vital Signs Vital Signs: Vital Signs - 24 hr 02/01/23 08:36 02/01/23 08:47 02/01/23 08:47 Temperature Pulse Rate 71 66 Respiratory Rate Blood Pressure Pulse Oximetry 98 Oxygen Delivery Room Air 02/01/23 10:00 02/01/23 11:33 02/01/23 12:28 Temperature 98.5 F Pulse Rate 64 64 67 Respiratory Rate 18 18 Blood Pressure 149/65 H 118/58 L Pulse Oximetry 100 98 Oxygen Delivery Room Air Room Air 02/01/23 12:38 02/01/23 12:48 02/01/23 13:25 Temperature 97.6 F Pulse Rate 66 63 63 Respiratory Rate 21 H 18 18 Blood Pressure 142/76 H 143/77 H 151/74 H Pulse Oximetry 94 100 100 Oxygen Delivery Room Air Room Air 02/01/23 13:00 02/01/23 14:00 02/01/23 16:00 Temperature Pulse Rate 64 67 72 Respiratory Rate Blood Pressure Pulse Oximetry Oxygen Delivery 02/01/23 16:00 10
[2023-02-02] MEDS: busPIRone HCL 5 MG TABLET 15 MG PO ×3 (08:29→17:16)
[2023-02-02] MEDS: levETIRAcetam 500 MG TABLET 1500 MG PO ×2 (08:29→21:13)
[2023-02-02] MEDS: miSOPROStol 200 MCG TABLET PO (08:30)
[2023-02-02] MEDS: carvediloL 12.5 MG TABLET PO ×2 (08:30→21:14)
[2023-02-02] MEDS: PANTOPRAZOLE SODIUM IV 40 MG VIAL IV PUSH ×3 (08:30→21:14)
[2023-02-02] MEDS: CITALOPRAM HYDROBROMIDE 20 MG TABLET PO (08:30)
--- NOTE | 2023-02-02 13:18 | WPDGIPROGNO ---
Progress Note: A&P Assessment and Plan (1) GI bleed: Qualifiers: GI bleed type/associated pathology: melena Qualified Code(s): K92.1 - Melena Code(s): K92.2 - Gastrointestinal hemorrhage, unspecified Status: Acute Assessment and Plan: Bleeding began last evening. It continued this morning. The patient denies pain . She has a known gastrojejunal ulcer, at the anastomosis from previous gastric bypass. she has just finished receiving her 2nd unit of blood. Initial hemoglobin was 5.8. It is have her discharge about 3 weeks ago it was 7.8. 02/02/2023 her hemoglobin is holding steady at 7.8. (2) History of gastric bypass: Code(s): Z98.84 - Bariatric surgery status Status: Acute Assessment and Plan: She had a bypass many years ago. Both the physician who performed surgery in hospital where was performed are gone. I told her that she may need to see a gastric bypass specialist such as at [facility] if she has recurrent bleeding, for revision. 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 And she was readmitted abut 4 weeks ago and ulcer was again treated. She has been maintained on pantoprazole. Apparently she also takes misoprostol daily (4) Ischemic cerebrovascular accident (CVA): Onset Date: 08/14/20 Code(s): I63.9 - Cerebral infarction, unspecified Status: Acute Assessment and Plan: She has residual expressive aphasia. Aspirin will be held while she is here. Plan there appears to be no further bleeding at this time. From my perspective she could be discharged. I told her to be sure follow-up with Dr. 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 She is tolerating her diet. Denies abdominal pain. Exam Const: General: cooperative and healthy appearing Orientation/consciousness: patient oriented x3 HENMT: Head: normal to inspection Ears: hearing grossly normal bilaterally Mouth: Yes Normal oral and palatal mucosa present Eyes: General: appearance normal, both eyes and all related structures Neck: Neck: normal visual inspection Chest: Chest palpation & inspection: normal inspection of the chest Resp: Effort & Inspection: normal respiratory effort Auscultation: clear to auscultation bilaterally Cardio: Rate: regular rate Rhythm: regular rhythm GI: Inspection: normal to inspection and other (Suprapubic catheter) Auscultation: normal bowel sounds Urinary Catheter: Urinary Catheter: other (Suprapubic) Skin: General skin exam: normal color and no jaundice Neuro: General: patient oriented x3 Speech: Expressive aphasia present Objective Data Vital Signs Vital Signs: Vital Signs - 24 hr 02/01/23 13:25 02/01/23 14:00 02/01/23 16:00 Temperature 36.4 C Pulse Rate 63 67 72 Respiratory Rate 18 Blood Pressure 151/74 H Pulse Oximetry 100 Oxygen Delivery 02/01/23 16:00 02/01/23 16:00 02/01/23 18:00 Temperature 36.6 C Pulse Rate 63 74 Respiratory Rate 16 Blood Pressure 153/79 H Pulse Oximetry 100 100 Oxygen Delivery Room Air 02/01/23 19:33 02/01/23 20:33 02/01/23 20:00 Temperature 36.3 C L Pulse Rate 70 82 67 Respiratory Rate 16 Blood Pressure 141/76 H Pulse Oximetry 98 Oxygen Delivery 02/01/23 20:00 02/01/23 22:00 02/01/23 23:20 Temperature 36.8 C Pulse Rate 67 70 68 Respiratory Rate 16 16 Blood Pressure 128/65 Pulse Oximetry 98 100 Oxygen Delivery Room Air 02/02/23 00:00 02/02/23 00:00 02/02/23 02:00 Temperature Pulse Rate 64 64 66 Respiratory Rate 16 Blood Pressure Pulse Oximetry 100 Oxygen Delivery Room Air 02/02
--- NOTE | 2023-02-02 13:59 | ECG_ITS ---
Measurements Intervals Dawn Rate: 65 P: 56 FL: 164 QRS: 19 QRSD: 84 T: 34 QT: 414 QTc: 432 Interpretive Statements SINUS RHYTHM CANNOT RULE OUT SEPTAL INFARCT, AGE INDETERMINATE BASELINE ARTIFACT- I, III, AVL ABNORMAL ECG COMPARED TO ECG 01/31/2023 10:06:22 NO SIGNIFICANT CHANGES Electronically Signed On 02-02-2023 14:22:56 CDT by Cristian Joya D.O.
[2023-02-02] MEDS: LORazepam INJ (*CRX) 2 MG/ML VIAL 1 MG IV PUSH (14:42)
[2023-02-02 14:52] LABS: Hematocrit 25.8 % (37.0-47.0); Hemoglobin 8.2 g/dL (12.0-15.0); Mean Corpuscular HGB Conc 31.8 g/dl (32-36); Mean Corpuscular Hemoglobin 28.3 pg (26-34); Mean Platelet Volume 10.3 fl (7.4-10.4); Platelet Count Result 159 k/mm3 (150-375); Red Cell Distribution Width 14.6 % (11.5-14.5); White Blood Count 5.1 K/mm3 (4.5-10.0)
[2023-02-02 15:13] LABS: Troponin I < 0.012 ng/mL (0.000-0.034)
--- NOTE | 2023-02-02 20:04 | PC.NURSE ---
1350- pt sitting up in chair- used call light and stated help me-help me -upon entering room pt color pale / dry ; BP 97/70- HR 69 spo2 100% and anxious 1355-pt placed back in bed - pt anxious and saying help me - when asked if she was in pain she stated her chest hurts - and c/o nausea BP 118/65 1405- dr. Cohen called and notified of pts condition-- informed of BP 123/68 HR 70 spo2 99%- new orders received- stat EKG, PCXR, troponin, CBC 1430- dr. Cohen called and informed of test results- pt remains anxious-- resp @ 32-36 shallow-spo2 99% on RA, BP 117/60 hr 64- new orders received; Ativan given as ordered 1455- pt calm/relaxed VSS- resp 20's denies pain or nausea- daughter called and updated on event; pt stated I'm better
[2023-02-02] MEDS: ATORVASTATIN 40 MG TABLET 80 MG PO (21:14)
[2023-02-03] VITALS (8 sets, daily range): BP systolic 129–149; BP diastolic 73–77; PULSE 52–71; RESP 16–18; TEMP 36.3–36.6; O2SAT 97–100
[2023-02-03] MEDS: SUCRALFATE 1 GM TABLET PO (06:16)
[2023-02-03] MEDS: busPIRone HCL 5 MG TABLET 15 MG PO ×2 (08:53→12:48)
[2023-02-03] MEDS: levETIRAcetam 500 MG TABLET 1500 MG PO (08:53)
[2023-02-03] MEDS: CITALOPRAM HYDROBROMIDE 20 MG TABLET PO (08:55)
[2023-02-03] MEDS: carvediloL 12.5 MG TABLET PO (08:55)
[2023-02-03] MEDS: miSOPROStol 200 MCG TABLET PO (08:55)
[2023-02-03] MEDS: PANTOPRAZOLE SODIUM IV 40 MG VIAL IV PUSH (08:55)
[2023-02-03 11:06] LABS: Basophils Percent Auto 0.7 % (0.2-1.2); Eosinophils Absolute Auto 0.1 K/mm3 (0-0.3); Eosinophils Percent Auto 1.3 % (0-4.4); Hematocrit 28.7 % (37.0-47.0); Hemoglobin 9.1 g/dL (12.0-15.0); Immature Granulocyte Absolute 0.01 K/mm3 (0.00-0.031); Immature Granulocyte Percent A 0.2 % (0-0.5); Lymphocytes Absolute Auto 0.81 K/mm3 (0.9-3.2); Mean Corpuscular HGB Conc 31.7 g/dl (32-36); Mean Corpuscular Hemoglobin 28.5 pg (26-34); Mean Platelet Volume 10.7 fl (7.4-10.4); Monocytes Absolute Auto 0.3 K/mm3 (0.1-0.6); Monocytes Percent Auto 6.7 % (2.6-8.5); Neutrophils Absolute Auto 3.3 K/mm3 (1.3-6.7); Neutrophils Percent Auto 73.1 % (45.5-73.1); Platelet Count Result 189 k/mm3 (150-375); Red Blood Count 3.19 M/mm3 (4.2-5.4); Red Cell Distribution Width 14.4 % (11.5-14.5); White Blood Count 4.5 K/mm3 (4.5-10.0)
[2023-02-03 11:22] LABS: Alanine Aminotransferase 29 U/L (6-35); Albumin Level 2.9 g/dL (3.5-5.1); Alkaline Phosphatase 57 U/L (38-126); Anion Gap 4 mmol/L (8-16); Aspartate Amino Transferase 22 U/L (14-36); Bilirubin,Total 0.4 mg/dL (0.2-1.3); Blood Urea Nitrogen 16 mg/dL (7-17); Calcium 8.1 mg/dL (8.4-10.2); Carbon Dioxide 24 mmol/L (22-30); Chloride 107 mmol/L (98-107); Estimated CRCL calculation 26 ml/min; Estimated Glomerular Filt Rate 48; Glucose 180 mg/dL (65-110); Potassium 3.6 mmol/L (3.4-5.0); Sodium 135 mmol/L (137-145)
--- NOTE | 2023-02-03 17:04 | PM.DS ---
DS: Admitting Diagnosis Discharge Date 02/03/23 Admitting Diagnosis GI bleed DS: Discharge Diagnosis Discharge Diagnosis (1) GI bleed: Qualifiers: GI bleed type/associated pathology: melena Qualified Code(s): K92.1 - Melena Code(s): K92.2 - Gastrointestinal hemorrhage, unspecified Status: Acute Assessment and Plan: The patient presented to the emergency department for evaluation of melena. EGD on 01/06 showing singled crated ulcer with a visible non-bleeding vessel in the proximal jejunum that was injected and cauterized. CT Abd/Pelvis showing gastric bypass, left renal atrophy (known), and pancreatic cystic lesion. Hgb was 5.8 on admission and she was transfused 2u. Hgb climbed to 8.2. GI consulted. Repeat EGD today showing singled crated ulcer in the proximal jejunum. There was a flat spot and the lesion was cauterized and epi injected. It appeared slightly smaller in size then in 01/06 She had a colonoscopy on 01/06 which showed cecal polyp that was removed, external hemorrhoids and diverticulosis. Continue Protonix, Sucralfate and misoprostol. MRI for pancreatic mass as outpatient Appreciate GI input. (2) Acute blood loss anemia: Code(s): D62 - Acute posthemorrhagic anemia Status: Acute Assessment and Plan: As above. Follow HH to ensure stability Still with melena, monitor closely (3) History of stroke: Code(s): Z86.73 - Personal history of transient ischemic attack (TIA), and cerebral infarction without residual deficits Status: Acute Assessment and Plan: She has a history of ischemic stroke with residual expressive aphasia Aspirin is on hold. Resume Lipitor Will also resume her buspirone and citalopram (4) Seizure disorder: Code(s): G40.909 - Epilepsy, unspecified, not intractable, without status epilepticus Status: Acute Assessment and Plan: No history of recent seizures. Continue levetiracetam. Plan Disposition likely home tomorrow DVT Prophylaxis - SCDs Code status- DNR DS: Summary Hospital Course Hospital Course: 82yo female with hx of CVA, suprapubic cath for retention(?), seizures and status post Marlee-en-Y in January 2009 with history of recurrent GI bleed who presented to the emergency department via private vehicle from home for evaluation of dark stools.? The patient presented to the emergency department for evaluation of melena. EGD on 01/06 showing singled crated ulcer with a visible non-bleeding vessel in the proximal jejunum that was injected and cauterized. CT Abd/Pelvis showing gastric bypass, left renal atrophy (known), and pancreatic cystic lesion. Hgb was 5.8 on admission and she was transfused 2u. Hgb climbed to 8.2. GI consulted. Repeat EGD today showing singled crated ulcer in the proximal jejunum. There was a flat spot and the lesion was cauterized and epi injected. It appeared slightly smaller in size then in 01/06 She had a colonoscopy on 01/06 which showed cecal polyp that was removed, external hemorrhoids and diverticulosis. Continue Protonix, Sucralfate and misoprostol. MRI for pancreatic mass as outpatient Appreciate GI input. Patient was stable for discharge. No further bleeding noted. Please see above and med rec for details. Time Spent with Patient Time attestation: Total time spent providing and/or coordinating discharge services: Exam Narrative: General: No acute distress, alert and oriented per baseline HEENT: Atraumatic, normocephalic, mucous membranes moist CV: Regular rate and rhythm, S1, S2 Lungs: Clear to auscultation bilaterally, no rales or crackles noted, no wheezes, good air entry Abdomen: Soft, nontender, nondistended Extremities: Normal to inspection Skin: No rashes noted, no lesions or wounds seen Psych: Euthymic, normal affect DS: Data Data Completed and Pending Labs on day of discharge: Labs from last 24 hours 02/03/23 10:53
== END 2023-02-03 14:42 | disposition home or self-care (01) | DRG 378 ==
LOC: ANHED 12:40 → ANHIMU 13:21
PROVIDERS: Internal Medicine; Internal Medicine Gastroenterology; Physician Assistant; Student in an Organized Health Care Education/Training Program; Admitting Provider General Practice; Emergency Provider Preventive Medicine Aerospace Medicine; PCP Internal Medicine Gastroenterology; Visit Provider General Practice
PROC: 0DJ08ZZ Inspection of Upper Intestinal Tract, Via Natural or Artificial Opening Endoscopic (ICD-10-PCS; CPT 43235; principal; 2023-02-01 12:30)
DX: K28.4 Chronic or unspecified gastrojejunal ulcer with hemorrhage (principal); D62 Acute posthemorrhagic anemia; K21.9 Gastro-esophageal reflux disease without esophagitis; K31.89 Other diseases of stomach and duodenum; Z98.84 Bariatric surgery status; G40.909 Epilepsy, unspecified, not intractable, without status epilepticus; R32 Unspecified urinary incontinence; I10 Essential (primary) hypertension; D50.9 Iron deficiency anemia, unspecified; Z96.653 Presence of artificial knee joint, bilateral; Z66 Do not resuscitate; I69.320 Aphasia following cerebral infarction; Z90.49 Acquired absence of other specified parts of digestive tract; Z90.710 Acquired absence of both cervix and uterus; Z98.1 Arthrodesis status; Z79.82 Long term (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
CPT/HCPCS: 36415; 36430; 71045; 74177; 80048; 80053; 81001; 83735; 84484; 85014; 85018; 85025; 85027; 85610; 85730; 86850; 86900; 86901; 86923; 93005; 96361; 96374; 96375; 97161; 97165; 99285; A9270; C9113; G0378; J0171; J2060; J2704; J3010; J7030; J7050; J7120; P9016; Q9967

== ENCOUNTER 2023-04-09 16:54 | Emergency (ER) | payer MEDICARE, OTHER, SELFPAY ==
--- NOTE | ~2023-04-09 | CT_ITS ---
CT of the Abdomen and Pelvis: Indication: Abdominal pain Technique: 2.5 mm axial scans were obtained through the abdomen and pelvis following intravenous adm inistration of 100 cc of Omnipaque 350. Dose reduction technique was used on this scan by utilizing a utomated exposure control and iterative reconstruction technique. The dose-length product (DLP) was 1 81.25 mGy-cm. COMPARISON: 01/31/2023 Findings: Scans through the lung bases are unremarkable. The liver, spleen, and adrenals are within normal limits. Possible mild right hydronephrosis. Stable cystic mass at the uncinate process of the pancreas. Stable severely atrophic left kidney. Gallbladde r not visualized. No evidence of aortic aneurysm. No lymphadenopathy. No bowel obstruction or bowel wall thickening. There is no evidence to suggest acute appendicitis. Pr ominent stool suggests constipation. Images through the pelvis were performed. Questionable urinary bladder wall thickening with suprapubi c catheter in place. Impression: Possible urinary bladder wall thickening with superior pubic catheter. Correlate for cystitis. Prominent stool suggests constipation. Suspected mild right hydronephrosis, similar to prior exam. Stable severely atrophic left kidney. Stable cystic mass at the uncinate process of the pancreas. Reviewed, dictated and finalized at location . CARRIER Impression: Possible urinary bladder wall thickening with superior pubic catheter. Correlat e for cystitis. Prominent stool suggests constipation. Suspected mild right hydronephrosis, similar to prior exam. Stable severely atr ophic left kidney. Stable cystic mass at the uncinate process of the pancreas.
--- NOTE | 2023-04-09 17:14 | ED.FEMALEGU ---
HPI - Female Genitourinary General Chief complaint: Urogenital-Female Stated complaint: catheter removal Time Seen by Provider: 04/09/23 17:02 Source: patient and old records reviewed Mode of arrival: ambulatory Limitations: no limitations and language barrier History of Present Illness HPI Narrative: Patient is an 82 y/o female, with PMH of CVA with residual expressive aphasia, suprapubic catheter, who presents to the ED with report of pain to her suprapubic catheter. Patient reports she has the catheter changed monthly in the outpatient urology office. She last had it changed last Tuesday. Patient reports having ongoing pain to her catheter/lower abdomen since Tuesday of this week. The catheter has been draining appropriately. Patient denies hematuria. Denies nausea, vomiting, fevers. Related Data Home Medications Medication Instructions Recorded Confirmed misoprostol 200 mcg tablet 200 mcg PO DAILY 11/05/19 01/31/23 atorvastatin 80 mg tablet 80 mg PO HS 08/29/20 01/31/23 aspirin 81 mg chewable tablet 81 mg PO DAILY 05/11/22 01/31/23 carvedilol 12.5 mg tablet (Coreg) 12.5 mg PO BID 05/11/22 01/31/23 citalopram 20 mg tablet 20 mg PO DAILY 05/11/22 01/31/23 levetiracetam 1,000 mg tablet 1,500 mg PO BID 05/11/22 01/31/23 buspirone 15 mg tablet 15 mg PO TID 01/04/23 01/31/23 pantoprazole 40 mg tablet,delayed 40 mg PO BID 01/04/23 01/31/23 release pyridoxine (vitamin B6) 100 mg 100 mg PO DAILY 01/04/23 01/31/23 tablet cephalexin 250 mg capsule 250 mg PO BID 01/31/23 01/31/23 potassium bicarbonate-citric acid 25 meq PO BID 01/31/23 01/31/23 25 mEq effervescent tablet (Klor-Con/EF) Allergies Allergy/AdvReac Type Severity Reaction Status Date / Time naproxen Allergy Severe cardiac Verified 04/09/23 18:14 arrest NSAIDS (Non-Steroidal Allergy Severe cardiac Verified 04/09/23 18:14 Anti-Inflamma arrest morphine Allergy Mild unknown Verified 04/09/23 18:14 Review of Systems Review of Systems: CONSTITUTIONAL: Denies fever, chills, or sweats. GASTROINTESTINAL: See HPI. GENITOURINARY: See HPI. MUSCULOSKELETAL: Denies back pain, extremity pain, myalgia. All systems reviewed & are unremarkable except as noted in HPI and below PMFSH Past Medical History Medical History Atrophy of left kidney Expressive aphasia Gastrojejunal ulcer with hemorrhage History of gastroscopy 08/18/09, 09/09/09, with structure Hypertension Iron (Fe) deficiency anemia Ischemic cerebrovascular accident (CVA) (08/14/20) Treated with tPA and thrombectomy Seizure disorder Urinary incontinence Vaginal delivery 1960, , full term, female, 7#10 1969, , full term, female, 7#10 Surgical History Surgical History H/O rectal polypectomy 11/13/08, 08/27/03 H/O right heart catheterization 12/17/08 unsure if lt or rt History of breast biopsy 06/09/10, stereotactic, biopsy rt breast History of cholecystectomy 05/09/09 History of endoscopy 12/16/09, 02/10/10, 08/25/10, 04/26/18 History of esophagogastroduodenoscopy (EGD) 04/25/12, with upper GI History of eye surgery 11/05/14 cataract right eye, 11/20/14 cataract left eye, 07/28/18 bilateral removal of scar tissue 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ing MARCUS L4-5, L3-4, Doscectomy/fusion lt iliac crest graft 10/12/01 cervical discectomy and fusion of c6-7 History of spinal surgery 11
[2023-04-09 17:40] VITALS: BP 153/77; PULSE 66; RESP 16; TEMP 36.7; O2SAT 99
--- NOTE | 2023-04-09 17:50 | PC.NURSE ---
[place] light removed old suprapubic and replaced with new 16 fr. pt states pain is improved but still does have some discomfort.
[2023-04-09 18:11] LABS: Basophils Absolute Auto 0.1 K/mm3 (0.0-0.1); Basophils Percent Auto 0.9 % (0.2-1.2); Eosinophils Absolute Auto 0.1 K/mm3 (0-0.3); Eosinophils Percent Auto 1.5 % (0-4.4); Hematocrit 27.9 % (37.0-47.0); Hemoglobin 8.2 g/dL (12.0-15.0); Immature Granulocyte Absolute 0.01 K/mm3 (0.00-0.031); Immature Granulocyte Percent A 0.2 % (0-0.5); Lymphocytes Absolute Auto 1.79 K/mm3 (0.9-3.2); Lymphocytes Percent Auto 33.4 % (18.3-44.2); Mean Corpuscular HGB Conc 29.4 g/dl (32-36); Mean Corpuscular Hemoglobin 23.8 pg (26-34); Mean Corpuscular Volume 81.1 fl (80-100); Mean Platelet Volume 10.3 fl (7.4-10.4); Monocytes Absolute Auto 0.6 K/mm3 (0.1-0.6); Monocytes Percent Auto 10.8 % (2.6-8.5); Neutrophils Absolute Auto 2.9 K/mm3 (1.3-6.7); Neutrophils Percent Auto 53.2 % (45.5-73.1); Platelet Count Result 248 k/mm3 (150-375); Red Blood Count 3.44 M/mm3 (4.2-5.4); White Blood Count 5.4 K/mm3 (4.5-10.0)
[2023-04-09 18:22] LABS: Platelet Estimate Adequate (Adequate)
[2023-04-09 18:24] LABS: Hypochromasia 1+ (NORMAL); Schistocytes None Seen (NORMAL)
[2023-04-09 18:25] LABS: Anisocytosis 2+ (NORMAL)
[2023-04-09 18:30] LABS: Alanine Aminotransferase 36 U/L (6-35); Albumin Level 3.7 g/dL (3.5-5.1); Alkaline Phosphatase 67 U/L (38-126); Anion Gap 6 mmol/L (8-16); Aspartate Amino Transferase 35 U/L (14-36); Bilirubin,Total 0.3 mg/dL (0.2-1.3); Blood Urea Nitrogen 20 mg/dL (7-17); Calcium 8.8 mg/dL (8.4-10.2); Carbon Dioxide 27 mmol/L (22-30); Chloride 105 mmol/L (98-107); Estimated CRCL calculation 26 ml/min; Estimated Glomerular Filt Rate 43; Glucose 91 mg/dL (65-110); Potassium 5.3 mmol/L (3.4-5.0); Sodium 138 mmol/L (137-145)
[2023-04-09] MEDS: ONDANSETRON INJ 4 MG/2 ML VIAL IV PUSH (18:33)
[2023-04-09] MEDS: SODIUM CHLORIDE 0.9% IV 1,000 ML 999 ML IV CONT ×2 (18:34→19:43)
[2023-04-09] MEDS: fentaNYL CITRATE INJ (*CRX) 100 MCG/2 ML VIAL 25 MCG IV PUSH (18:34)
[2023-04-09 19:16] LABS: Appearance Urine Clear (Clear); Bacteria Urine None Seen /hpf; Bilirubin Urine Negative (Negative); Blood Urine Negative (Negative); Color Urine Yellow (Yellow); Glucose Urine UA Negative (Negative); Ketones Urine Negative (Negative); Leukocyte Esterase Ur Trace LEU/UL (Negative); Need Manual Microscopic Reviewed; Nitrate Urine Negative (Negative); Non Pathogenic Casts 0-2; Protein Urine 1+ mg/dL (Negative); Specific Grav Ur 1.015 (1.001-1.035); Squamous Epithelial Cell Urine None seen /hpf (Few); Urobilinogen Urine 0.2 mg/dL (<2.0); pH Urine >=9.0 (5.0-9.0)
[2023-04-09 19:17] LABS: Add Urine Microscopic? YES
[2023-04-09 20:07] LABS: Anion Gap 6 mmol/L (8-16); Blood Urea Nitrogen 18 mg/dL (7-17); Calcium 8.2 mg/dL (8.4-10.2); Carbon Dioxide 24 mmol/L (22-30); Chloride 106 mmol/L (98-107); Estimated CRCL calculation 29 ml/min; Estimated Glomerular Filt Rate 48; Glucose 91 mg/dL (65-110); Potassium 4.1 mmol/L (3.4-5.0); Sodium 136 mmol/L (137-145)
[2023-04-09 20:16] VITALS: BP 171/84; PULSE 87; RESP 15; O2SAT 99
[2023-04-09 21:01] VITALS: BP 135/96; PULSE 99; RESP 17; O2SAT 96
== END 2023-04-09 21:03 | disposition home or self-care (01) ==
PROVIDERS: Emergency Provider Physician Assistant; PCP Internal Medicine Gastroenterology
DX: T83.84XA Pain due to genitourinary prosthetic devices, implants and grafts, initial encounter (principal); N39.0 Urinary tract infection, site not specified; E87.5 Hyperkalemia; I69.920 Aphasia following unspecified cerebrovascular disease; Z79.82 Long term (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; I10 Essential (primary) hypertension; D50.9 Iron deficiency anemia, unspecified; G40.909 Epilepsy, unspecified, not intractable, without status epilepticus; Z87.19 Personal history of other diseases of the digestive system; Z90.49 Acquired absence of other specified parts of digestive tract; Z98.84 Bariatric surgery status; Z90.710 Acquired absence of both cervix and uterus; Z96.653 Presence of artificial knee joint, bilateral; Z98.1 Arthrodesis status
CPT/HCPCS: 36415; 51705; 74177; 80048; 80053; 81001; 85025; 87077; 87086; 87147; 87186; 96361; 96365; 96375; 99284; J0696; J2405; J3010; J7030; Q9967

== ENCOUNTER 2023-05-17 15:26 | Inpatient (IN) | payer MEDICARE, OTHER, SELFPAY ==
[2023-05-17] VITALS (11 sets, daily range): BP systolic 102–154; BP diastolic 58–89; PULSE 72–103; RESP 15–30; TEMP 36.3–37.2; O2SAT 92–100
--- NOTE | ~2023-05-17 | CT_ITS ---
EXAMINATION: CT brain wo con DATE: 05/17/2023 21:48 INDICATION: Aphasia TECHNIQUE: Computed tomography (CT) of the head was performed without intravenous contrast. Sagittal and coronal reconstructions were performed. The mA was adjusted according to patient size. Iterative reconstruction technique was employed. The dose-length product was 529.67 mGy-cm. COMPARISON: None FINDINGS: Large region of encephalomalacia in the left frontal, parietal and temporal lobes as well as the left insula consistent with chronic infarct in the vascular distribution of the left middle cerebral kimberlyn ry vascular distribution. No acute intracranial hemorrhage, acute infarction or abnormal extra axial fluid collection. 2.2 x 2.2 x 1.6 cm extra-axial calcified mass at the vertex to the left of the falx consistent with a meningioma. Ventricles are normal and symmetric. Intracranial calcified cerebral a therosclerosis is noted. There is residual intravascular contrast related to the earlier contrast-enh anced CT of the abdomen and pelvis performed 4 hours prior. Changes of bilateral intraocular lens rep lacement. The orbits, paranasal sinuses and mastoid air cells are normal. IMPRESSION: 1. No acute intracranial process. 2. Large region of encephalomalacia consistent with chronic infarct in the left middle cerebral arter y vascular distribution. 3. 2.2 cm ossified extra-axial mass at the left vertex most consistent with a meningioma. Reviewed, dictated and finalized at location A. GE LOADER IMPRESSION: 1. No acute intracranial process. 2. Large region of encephalomalacia consistent with chronic infarct in the left middle cerebral artery vascular distribution. 3. 2.2 cm ossified extra-axial mass at the left vertex most consistent with a m eningioma.
--- NOTE | ~2023-05-17 | XR_ITS ---
EXAMINATION: XR chest 1V portable DATE: 05/19/2023 13:37 INDICATION: Rib pain. TECHNIQUE: A single frontal view of the chest was obtained. COMPARISON: Chest single view 05/17/2023 FINDINGS: There is mild atelectasis in left lower lung zone. No pleural effusion or pneumothorax. Car diomegaly is noted. There is an electronic implant overlying left chest. There are surgical clips in the abdomen. IMPRESSION: 1. Mild atelectasis in left lower lung zone. 2. Cardiomegaly. Reviewed, dictated and finalized at location A. SC[employer] GLASS
--- NOTE | ~2023-05-17 | CT_ITS ---
EXAMINATION: CTA abdomen pelvis DATE: 05/17/2023 17:42 INDICATION: Gastrointestinal bleed TECHNIQUE: Computed tomographic angiography (CTA) of the abdomen and pelvis was performed with 100 mL Omnipaque-350 intravenous contrast. Additional 3D reconstructions utilizing rotating maximum intensi ty projection (MIP) were performed. Automated exposure control and iterative reconstruction technique were employed. The dose-length product was 200.67 mGy-cm. COMPARISON: 04/09/2023 FINDINGS: Lung bases are clear. Cardiomegaly. No pericardial or pleural effusion. Postoperative change of prior Marlee-en-Y gastric bypass procedure with jejunojejunal anastomosis in the left abdomen. Again seen is mild dilation of the common bile duct without intrahepatic biliary ductal dilation likely related to prior cholecystectomy. 2.4 x 1.1 cm simple appearing cystic lesion at the uncinate process of the pa ncreas which without significant interval change in back to CT dated 08/28/2020 without evident solid soft tissue component. Multiple calcific granulomata in the spleen. Normal bilateral adrenal glands. Severe left renal atrophy. There are small regions of cortical scarring in the right kidney. 2 mm non obstructing stone at the lower pole of the right kidney. Small amount of gas and suprapubic Hammer cat heter in the bladder. The uterus is not identified and has likely been surgically resected. Gas and fluid filling a few borderline dilated loops of small bowel in the right abdomen which measur e up to 3.4 cm in maximal diameter. There is a transition to decompressed bowel in the inferior right hemipelvis. No evident no active contrast extravasation into the bowels. Large amount of stool at th e rectum. Abdominal aorta is normal in caliber with no aneurysm or dissection. There is minimal scatt ered atherosclerotic plaque along the aorta including at the origins of the celiac axis, superior mes enteric and right renal arteries without hemodynamically significant stenosis. No free intraperitonea l gas or fluid. No pathologically enlarged abdominal or pelvic lymphadenopathy. L3-S1 anterior spinal fusion with interbody bone graft cages and L5-S1 posterior spinal fusion with bilateral vertical edwardo and pedicle screw fixation. IMPRESSION: 1. Borderline dilation of a few gas and fluid-filled loops of small bowel in the right abdomen with t ransition point in the inferior right pelvis which could be due to ileus, enteritis or less likely ea rly/partial small bowel obstruction. 2. Small amount of gas and suprapubic Hammer catheter within the otherwise unremarkable bladder. Corre late with urinalysis. 3. 2 mm nonobstructing stone at the lower pole of the right kidney. Severe left renal atrophy. 4. No significant change since 2020 and a likely benign 3.4 x 1.1 cm simple appearing cystic lesion a t the uncinate process of the pancreas. Reviewed, dictated and finalized at location A. [employer] IMPRESSION: 1. Borderline dilation of a few gas and fluid-filled loops of small bowel in th e right abdomen with transition point in the inferior right pelvis which could be due to ileus, enteritis or less likely early/partial small bowel obstruction . 2. Small amount of gas and suprapubic Hammer catheter within the otherwise unrem arkable bladder. Correlate with urinalysis. 3. 2 mm nonobstructing stone at the lower pole of the right kidney. Severe left renal atrophy. 4. No significant change since 2020 and a likely benign 3.4 x 1.1 cm simple mike earing cystic lesion at the uncinate process of the pancreas.
--- NOTE | ~2023-05-17 | XR_ITS ---
EXAMINATION: XR chest 1V portable DATE: 05/17/2023 18:17 INDICATION: Anemia TECHNIQUE: frontal view of the chest was obtained. COMPARISON: Chest radiograph dated 02/02/2023 FINDINGS: Again seen are couple calcified nodules in the left mid and lower lung zones consistent with old gran ulomatous disease. No focal airspace opacities, pulmonary edema, pleural effusion or pneumothorax. Ca rdiomegaly. Postoperative changes in left upper quadrant. C6-7 anterior spinal fusion with interbody bone graft cage. Left pectoral implantable court monitor. IMPRESSION: 1. Cardiomegaly. No acute cardiopulmonary disease. Reviewed, dictated and finalized at location A. AND SEAFOOD CLERK
[2023-05-17 16:48] LABS: Basophils Percent Auto 0.1 % (0.2-1.2); Immature Granulocyte Absolute 0.07 K/mm3 (0.00-0.031); Immature Granulocyte Percent A 0.8 % (0-0.5); Lymphocytes Percent Auto 6.5 % (18.3-44.2); Mean Corpuscular HGB Conc 29.7 g/dl (32-36); Mean Corpuscular Hemoglobin 23.6 pg (26-34); Mean Corpuscular Volume 79.3 fl (80-100); Mean Platelet Volume 10.7 fl (7.4-10.4); Monocytes Absolute Auto 0.3 K/mm3 (0.1-0.6); Monocytes Percent Auto 2.7 % (2.6-8.5); Neutrophils Absolute Auto 8.3 K/mm3 (1.3-6.7); Neutrophils Percent Auto 89.9 % (45.5-73.1); Platelet Count Result 202 k/mm3 (150-375); Red Blood Count 2.08 M/mm3 (4.2-5.4); Red Cell Distribution Width 17.2 % (11.5-14.5); White Blood Count 9.2 K/mm3 (4.5-10.0)
[2023-05-17 17:01] LABS: Alanine Aminotransferase 32 U/L (6-35); Albumin Level 3.3 g/dL (3.5-5.1); Alkaline Phosphatase 60 U/L (38-126); Anion Gap 9 mmol/L (8-16); Aspartate Amino Transferase 29 U/L (14-36); Bilirubin,Total 0.2 mg/dL (0.2-1.3); Blood Urea Nitrogen 60 mg/dL (7-17); Calcium 8.6 mg/dL (8.4-10.2); Carbon Dioxide 21 mmol/L (22-30); Chloride 108 mmol/L (98-107); Estimated Glomerular Filt Rate 43; Glucose 138 mg/dL (65-110); Lipase 92 U/L (23-300); Sodium 138 mmol/L (137-145)
[2023-05-17 17:03] LABS: Hematocrit 16.5 % (37.0-47.0); Hemoglobin 4.9 g/dL (12.0-15.0); Platelet Estimate Adequate (Adequate)
[2023-05-17 17:04] LABS: Anisocytosis 1+ (NORMAL); Hypochromasia 2+ (NORMAL); Ovalocytes 1+ (NORMAL)
[2023-05-17 17:05] LABS: Crenated RBC 2+ (NORMAL); Schistocytes 1+ (NORMAL)
--- NOTE | 2023-05-17 17:07 | ECG_ITS ---
Measurements Intervals [place] Rate: 77 P: 77 VT: 163 QRS: 66 QRSD: 82 T: -83 QT: 396 QTc: 450 Interpretive Statements SINUS RHYTHM LEFT VENTRICULAR HYPERTROPHY AND ST-T CHANGE [VOLTAGE CRITERIA PLUS ST/T ABNORMALITY] ABNORMAL ECG COMPARED TO ECG 02/02/2023 14:03:10 LEFT VENTRICULAR HYPERTROPHY NOW PRESENT ST (T WAVE) DEVIATION NOW PRESENT Electronically Signed On 05-18-2023 11:42:45 MECHANIC RECOVERY by Cornelio Weinberg M.D.
[2023-05-17 17:11] LABS: Potassium 5.1 mmol/L (3.4-5.0)
[2023-05-17] MEDS: SODIUM CHLORIDE 0.9% IV 500 ML 999 ML IV CONT (17:18)
--- NOTE | 2023-05-17 17:53 | ED.ABDPAIN ---
HPI - Abdominal Pain General Chief Complaint: Abdominal Pain Stated Complaint: abd pain Time Seen by Provider: 05/17/23 17:06 Source: patient and other (boyfriend) Limitations: other (chronic expressive aphasia) History of Present Illness HPI narrative: Patient is an 83-year-old female presents to the emergency department accompanied by her boyfriend for abdominal discomfort. Patient states that she is epigastric turning sensation for the past couple days, not gone away, denies history is the past. Patient is to history of low blood counts and has a history of ulcers in her stomach and has had a blood transfusion as recently as a couple months ago and has had multiple blood transfusions for this in the past. Patient has not noticed any bloody bowel movements, melena, hematochezia, urinary discomfort, cough, fever, chest pain, difficulty breathing, recent injuries, use of blood thinners, new or change medications. Patient admits to some slight lightheadedness. . Patient denies any radiation of the abdominal discomfort and admits to nausea without vomiting. Patient admits to history of colonoscopies. Related Data Home Medications Medication Instructions Recorded Confirmed misoprostol 200 mcg tablet 200 mcg PO DAILY 11/05/19 01/31/23 atorvastatin 80 mg tablet 80 mg PO HS 08/29/20 01/31/23 aspirin 81 mg chewable tablet 81 mg PO DAILY 05/11/22 01/31/23 carvedilol 12.5 mg tablet (Coreg) 12.5 mg PO BID 05/11/22 01/31/23 citalopram 20 mg tablet 20 mg PO DAILY 05/11/22 01/31/23 levetiracetam 1,000 mg tablet 1,500 mg PO BID 05/11/22 01/31/23 buspirone 15 mg tablet 15 mg PO TID 01/04/23 01/31/23 pantoprazole 40 mg tablet,delayed 40 mg PO BID 01/04/23 01/31/23 release pyridoxine (vitamin B6) 100 mg 100 mg PO DAILY 01/04/23 01/31/23 tablet cephalexin 250 mg capsule 250 mg PO BID 01/31/23 01/31/23 potassium bicarbonate-citric acid 25 meq PO BID 01/31/23 01/31/23 25 mEq effervescent tablet (Klor-Con/EF) Allergies Allergy/AdvReac Type Severity Reaction Status Date / Time naproxen Allergy Severe cardiac Verified 05/17/23 16:35 arrest NSAIDS (Non-Steroidal Allergy Severe cardiac Verified 05/17/23 16:35 Anti-Inflamma arrest morphine Allergy Mild unknown Verified 05/17/23 16:35 Review of Systems Review of Systems: A 10 system review of systems was completed on the patient and is negative except for what is stated in the HPI. Nursing and ancillary documentation was reviewed. FORMERLY [facility] Past Medical History Medical History Atrophy of left kidney Expressive aphasia Gastrojejunal ulcer with hemorrhage History of gastroscopy 08/18/09, 09/09/09, with structure Hypertension Iron (Fe) deficiency anemia Ischemic cerebrovascular accident (CVA) (08/14/20) Treated with tPA and thrombectomy Seizure disorder Urinary incontinence Vaginal delivery 1960, , full term, female, 7#10 1969, , full term, female, 7#10 Surgical History Surgical History H/O rectal polypectomy 11/13/08, 08/27/03 H/O right heart catheterization 12/17/08 unsure if lt or rt History of breast biopsy 06/09/10, stereotactic, biopsy rt breast History of cholecystectomy 05/09/09 History of endoscopy 12/16/09, 02/10/10, 08/25/10, 04/26/18 History of esophagogastroduodenoscopy (EGD) 04/25/12, with upper GI History of eye surgery 11/05/14 cataract right eye, 11/20/14 cataract left eye, 07/28/18 bilateral removal of scar tissue 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
[2023-05-17] MEDS: PANTOPRAZOLE SODIUM IV 40 MG VIAL IV PUSH (18:07)
[2023-05-17 18:21] LABS: Appearance Urine Clear (Clear); Bacteria Urine None Seen /hpf; Bilirubin Urine Negative (Negative); Blood Urine Negative (Negative); Color Urine Yellow (Yellow); Glucose Urine UA Negative (Negative); Ketones Urine Negative (Negative); Leukocyte Esterase Ur Trace LEU/UL (Negative); Nitrate Urine Negative (Negative); Protein Urine Negative (Negative); RBC Urine 0-2 /hpf (0-2); Specific Grav Ur 1.026 (1.001-1.035); Squamous Epithelial Cell Urine None seen /hpf (Few); Urobilinogen Urine 0.2 mg/dL (<2.0); WBC Urine 0-5 /hpf; pH Urine 5.5 (5.0-9.0)
[2023-05-17] MEDS: ONDANSETRON INJ 4 MG/2 ML VIAL IV PUSH (18:23)
[2023-05-17 18:24] LABS: Add Urine Microscopic? YES
[2023-05-17] MEDS: SODIUM BICARBONATE 8.4% 50 MEQ/50 ML SYRINGE IV PUSH (18:31)
[2023-05-17 18:32] LABS: INR 1.2; Prothrombin Time 15.3 Seconds (11.1-14.7)
[2023-05-17 18:35] LABS: Glucose Point of Care 107 mg/dl (65-105)
[2023-05-17] MEDS: DEXTROSE 50% 25 GM/50 ML SYRINGE IV PUSH (18:35)
[2023-05-17] MEDS: INSULIN HUMAN REGULAR (*BKC) 100 UNITS/ML 10 UNITS IV PUSH (18:37)
[2023-05-17] MEDS: SODIUM POLYSTYRENE SULFONONATE 15 GM/60 ML BTL 30 GM PO (18:38)
[2023-05-17 18:45] LABS: Lactic Acid Reflex 2.5 mmol/L (0.7-2.0)
--- NOTE | 2023-05-17 19:19 | PC.NURSE ---
Report given to Aurelio ROSALES, all questions answered
--- NOTE | 2023-05-17 19:23 | PC.NURSE ---
Assumed care of pt from CONNIE Conrad at this time.
[2023-05-17 19:29] LABS: Influenza A QL RT-PCR Negative (Negative); Influenza B QL RT-PCR Negative (Negative); RSV RNA, RT-PCR Negative (Negative); SARS-CoV-2 RNA PCR Negative (Negative)
[2023-05-17] MEDS: KETAMINE HCL (*CRX) 500 MG/10 ML VIAL 5.4 MG IV PUSH (19:34)
[2023-05-17 19:39] LABS: Glucose Point of Care 159 mg/dl (65-105)
[2023-05-17 19:52] LABS: Partial Thromboplastin Time 26.2 SECONDS (22.3-36.8)
--- NOTE | 2023-05-17 20:44 | PM.IMHP ---
H&P: HPI History of Present Illness Date/Time: 05/17/23 20:44 Chief Complaint: abdominal discomfort Narrative: Patient is an 83-year-old female with history of stomach also on multiple blood transfusion in the past who presents to the emergency department accompanied by her boyfriend for abdominal discomfort.? History is limited due to inability of this patient to give clear details, most of the details obtained from review of ED physician documentation, patient states that she is epigastric turning sensation for the past couple days, not gone away, denies history is the past.?.? Patient has not noticed any bloody bowel movements, melena, hematochezia, urinary discomfort, cough, fever, chest pain, difficulty breathing, recent injuries, use of blood thinners, new or change medications.? Patient admits to some slight lightheadedness. .? Patient denies any radiation of the abdominal discomfort and admits to nausea without vomiting.? Patient admits to history of colonoscopies. She was evaluated in the ER and found to have positive Hemoccult stool and hemoglobin of 4.9 and hematocrit of 16.5. CTA of the abdomen and pelvis showed gas and fluid-filled dilated loop of small bowel with transition point at the right pelvis, 2 units of packed RBC was ordered and general surgeon consulted. Patient was confused at bedside, unable to give me a clear history, her vital signs were stable. Review of Systems Review of Systems: All systems reviewed & are unremarkable except as noted in HPI and below PMFSH Past Medical History Medical History Atrophy of left kidney Expressive aphasia Gastrojejunal ulcer with hemorrhage History of gastroscopy 08/18/09, 09/09/09, with structure Hypertension Iron (Fe) deficiency anemia Ischemic cerebrovascular accident (CVA) (08/14/20) Treated with tPA and thrombectomy Seizure disorder Urinary incontinence Vaginal delivery 1960, , full term, female, 7#10 1969, , full term, female, 7#10 Surgical History Surgical History H/O rectal polypectomy 11/13/08, 08/27/03 H/O right heart catheterization 12/17/08 unsure if lt or rt History of breast biopsy 06/09/10, stereotactic, biopsy rt breast History of cholecystectomy 05/09/09 History of endoscopy 12/16/09, 02/10/10, 08/25/10, 04/26/18 History of esophagogastroduodenoscopy (EGD) 04/25/12, with upper GI History of eye surgery 11/05/14 cataract right eye, 11/20/14 cataract left eye, 07/28/18 bilateral removal of scar tissue 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ing MARCUS L4-5, L3-4, Doscectomy/fusion lt iliac crest graft 10/12/01 cervical discectomy and fusion of c6-7 History of spinal surgery 02/10/16 lumbar decompressive laminectomy, transformal lumbar interbody fusion with PEEK spacers, posterior intertransverse fusion, posterior spinal instrumentation, harvesting bone graft History of stress incontinence procedure using tension free vaginal tape 05/18/01 Hx of breast surgery 07/27/10, mastopexy Family History Family History Grandparent Family history of malignant neoplasm of ovary Father Family history of lung cancer Sibling Family history of lung cancer Social History Social History Social History: Code status: Full code. Smoking status: Never smok
[2023-05-17 20:50] LABS: Troponin I 0.018 ng/mL (0.000-0.034)
[2023-05-17] MEDS: SODIUM CHLORIDE 0.9% IV 250 ML 30 ML IV CONT (20:50)
[2023-05-17] MEDS: TUBING, BLOOD PLUM PUMP TUBING 1 EACH XX (20:50)
--- NOTE | 2023-05-17 21:15 | ADMGEN ---
This patient, Nicole Patricia, was admitted to IMU Room 200-01. Patient/family oriented to hospital policies and general routines including ID bracelet, bed and alarms, visiting hours, pain management, procedures, bathroom and other care routines, personal items, smoking policy, room service/diet, and visiting hours. Information on how to activate the Rapid Response Team has been discussed. Patient/Family are encouraged to report perceived risks to care and to ask questions if they do not understand what they are told or what they should do.
[2023-05-17 21:30] LABS: Glucose Point of Care 97 mg/dl (65-105)
[2023-05-17 21:33] LABS: Reflex Lactic Acid Yes or No Add Lactic
--- NOTE | 2023-05-17 21:45 | PC.NURSE ---
Pt arrived to IMU, tearful and having difficulty with her speech. Staffed asked pt if this is her normal way of speaking, pt clearly stated no. NIHSS attempted. Pt had difficulty following directions, but was able to move all extremities with equal strength. Pupils PERRL. Pt has slight facial droop noted to the right side of her mouth. Dr. Johnston notified. States that he saw pt in the ER and was told she was given Ketamine. States he believes her difficultly with speech could be a result of the medication. Head CT was ultimately ordered. ortho tech and house calls nurse at pt's beside. Staff nurse accompanied pt to CT.
[2023-05-17 22:25] LABS: Lactic Acid 2.6 mmol/L (0.7-2.0)
[2023-05-17] MEDS: PANTOPRAZOLE SODIUM IV 80 MG in SODIUM CHLORIDE 0.9% IV 500 ML 50 MG IV CONT (22:29)
--- NOTE | 2023-05-17 22:40 | PC.NURSE ---
Pt c/o SOB. O2 @2L NC applied. Notified Dr. Johnston current condition: 92% room air, improved to 100% with 2L, respiratory rate 28-32. Pt has order for second unit of blood without a Lasix ordered. Dr. Johnston ordered one time dose Lasix 20 mg IVP. CBC to be ordered following infusion of second unit of blood. Dr. Johnston notified of lactic acid result. No new orders.
[2023-05-17] MEDS: FUROSEMIDE INJ 40 MG/4 ML VIAL 20 MG IV PUSH (23:18)
[2023-05-18] VITALS (30 sets, daily range): BP systolic 115–154; BP diastolic 53–101; PULSE 68–93; RESP 16–28; TEMP 36.5–37.2; O2SAT 92–100; BMI 30.6
[2023-05-18 00:06] LABS: Troponin I 0.028 ng/mL (0.000-0.034)
[2023-05-18 00:41] LABS: Glucose Point of Care 131 mg/dl (65-105)
[2023-05-18 03:57] LABS: Basophils Percent Auto 0.4 % (0.2-1.2); Hemoglobin 7.3 g/dL (12.0-15.0); Immature Granulocyte Absolute 0.03 K/mm3 (0.00-0.031); Immature Granulocyte Percent A 0.3 % (0-0.5); Lymphocytes Absolute Auto 1.29 K/mm3 (0.9-3.2); Lymphocytes Percent Auto 14.2 % (18.3-44.2); Mean Corpuscular HGB Conc 31.7 g/dl (32-36); Mean Corpuscular Hemoglobin 24.7 pg (26-34); Mean Platelet Volume 9.8 fl (7.4-10.4); Monocytes Absolute Auto 0.9 K/mm3 (0.1-0.6); Monocytes Percent Auto 10.4 % (2.6-8.5); Neutrophils Absolute Auto 6.8 K/mm3 (1.3-6.7); Neutrophils Percent Auto 74.7 % (45.5-73.1); Platelet Count Result 160 k/mm3 (150-375); Red Blood Count 2.95 M/mm3 (4.2-5.4); Red Cell Distribution Width 17.6 % (11.5-14.5); White Blood Count 9.1 K/mm3 (4.5-10.0)
[2023-05-18 04:21] LABS: Anion Gap 5 mmol/L (8-16); Blood Urea Nitrogen 49 mg/dL (7-17); Calcium 8.2 mg/dL (8.4-10.2); Carbon Dioxide 25 mmol/L (22-30); Chloride 112 mmol/L (98-107); Estimated Glomerular Filt Rate 36; Glucose 118 mg/dL (65-110); Potassium 3.5 mmol/L (3.4-5.0); Sodium 142 mmol/L (137-145)
[2023-05-18 05:31] LABS: Glucose Point of Care 119 mg/dl (65-105)
[2023-05-18] MEDS: PANTOPRAZOLE SODIUM IV 80 MG in SODIUM CHLORIDE 0.9% IV 500 ML 50 MG IV CONT (08:57)
--- NOTE | 2023-05-18 09:47 | PM.CNGS ---
Assessment and Plan Assessment and plan (1) Enteritis: Code(s): K52.9 - Noninfective gastroenteritis and colitis, unspecified Status: Acute Assessment and Plan: Patient presented with diarrhea and abdominal pain. CT suggests more likely ileus/enteritis. She has not had any nausea or vomiting. Abdominal exam benign and no clinical evidence of a high-grade small bowel obstruction. Continue with medical management. She is NPO with IV fluids for EGD today. (2) GI bleed: Qualifiers: GI bleed type/associated pathology: melena Qualified Code(s): K92.1 - Melena Code(s): K92.2 - Gastrointestinal hemorrhage, unspecified Status: Acute Assessment and Plan: Presented again with profound anemia and recurrent GI bleed. GI planning EGD today. Will await results. (3) Anemia: Qualifiers: Anemia type: unspecified type Qualified Code(s): D64.9 - Anemia, unspecified Code(s): D64.9 - Anemia, unspecified Status: Acute Assessment and Plan: Continue to transfuse as needed, serial labs, EGD today (4) History of gastric bypass: Code(s): Z98.84 - Bariatric surgery status Status: Acute Assessment and Plan: Marlee-en-Y gastric bypass in 2008 (5) History of stroke: Code(s): Z86.73 - Personal history of transient ischemic attack (TIA), and cerebral infarction without residual deficits Status: Acute Plan I have discussed the patient's case and plan of care with Dr. Vogel. History of Present Illness Consult details Consult date: 05/18/23 Reason for consult: other (GI bleed) Requesting physician: Juan F Mora DO Narrative: This is an 83-year-old woman with a history of intestinal ulcers and anemia, who presented to the ER yesterday with complaints of abdominal pain. She has a history of a stroke with expressive aphasia and history is somewhat limited. History is also obtained by review of her electronic medical record. She reports having upper abdominal pain for the past 4 days. She reports having diarrhea at home over the past few days. She denies noticing melena or hematochezia. No nausea or vomiting. her boyfriend, whom she lives with, brought her into the ER for evaluation due to the abdominal pain. She has a history of Marlee-en-Y gastric bypass in 2008 and recurrent GI bleeding that has required transfusions multiple times in the past year. She has had multiple upper endoscopies that showed intestinal ulcers at her gastrojejunal anastomosis and proximal jejunum. Most recently, she had an EGD on 02/01/2023 that showed a proximal jejunal ulcer that was cauterized and epinephrine was injected. Workup in the ER yesterday showed profound anemia with a hemoglobin of 4.9 and hematocrit 16.5. CTA of the abdomen and pelvis showed borderline dilation of a few gas and fluid-filled loops of small bowel in the right abdomen with transition point in the inferior right pelvis which could be due to ileus, enteritis, or less likely early/partial small bowel obstruction. Also noted was a small amount of gas and suprapubic Hammer catheter, 2 mm nonobstructing stone in the lower pole of the right kidney, severe left renal atrophy, benign-appearing cystic lesion in the pancreas. CT of the head with no acute intracranial changes. She was admitted to the hospitalist service. She was transfused with 2 units of packed red blood cells. Hemoglobin was up to 7.3 around 3:00 a.m. this morning. GI and our service was consulted for the GI bleeding. She is scheduled to have an EGD today. She is seen in the IMU. She reports flatus. She believes her last bowel movement was yesterday and she had multiple liquid stools. She reports generalized abdominal pain on both sides of her abdomen, but this has improved. Denies any nausea. No other complaints at this time. Review of Systems Review of Systems: ROS unobtainable: Yes unobtainable due to mental status PMFSH Past Me
--- NOTE | 2023-05-18 10:05 | PM.IMPN ---
Progress Note: A&P Assessment and Plan (1) Acute GI bleeding: Code(s): K92.2 - Gastrointestinal hemorrhage, unspecified Status: Acute (2) Symptomatic anemia: Code(s): D64.9 - Anemia, unspecified Status: Acute (3) Anemia: Qualifiers: Anemia type: unspecified type Qualified Code(s): D64.9 - Anemia, unspecified Code(s): D64.9 - Anemia, unspecified Status: Acute (4) Small bowel obstruction: Code(s): K56.609 - Unspecified intestinal obstruction, unspecified as to partial versus complete obstruction Status: Acute Plan ?Patient is an 83-year-old female presents to the emergency department accompanied by her boyfriend for abdominal discomfort.? Patient states that she is epigastric turning sensation for the past couple days, not gone away, denies history is the past.? Patient is to history of low blood counts and has a history of ulcers in her stomach and has had a blood transfusion as recently as a couple months ago and has had multiple blood transfusions for this in the past.? Patient has not noticed any bloody bowel movements, melena, hematochezia, urinary discomfort, cough, fever, chest pain, difficulty breathing, recent injuries, use of blood thinners, new or change medications.? Patient admits to some slight lightheadedness.? Profound anemia Patient will be admitted for further management, transfuse 2 packed RBC, f/u hemoglobin q6h continue IV Protonix infusion, monitor vital signs closely. 05/18, hemoglobin dropped back to 6.9, transfuse 1 pack RBC Acute GI bleeding? 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 Most recently, she had an EGD on 02/01/2023 that showed a proximal jejunal ulcer that was cauterized and epinephrine was injected.? Workup in the ER yesterday showed profound anemia with a hemoglobin of 4.9 and hematocrit 16.5.? GI and and general surgeon were consulted for the GI bleeding.? scheduled to have an EGD that shows benign ulcer without active bleeding and gastric jejunal anastomosis Follow-up ferritin and iron panel Small-bowel obstruction CTA of the abdomen and pelvis showed borderline dilation of a few gas and fluid-filled loops of small bowel in the right abdomen with transition point in the inferior right pelvis which could be due to ileus, enteritis, or less likely early/partial small bowel obstruction.? Keep patient Consult general surgeon Subjective Date/time seen: 05/18/23 10:05 Interval history: I saw and exam patient today. Patient underwent EGD today, at also was found have single benign ulcer and gastric jejunal anastomosis without active bleeding. Patient denies nausea vomiting or diarrhea. Repeated hemoglobin dropped back to 6.9, order 1 pack RBC. Patient is afebrile, hemodynamically stable Exam Narrative: ?CONST: No acute distress. Well nourished. HENMT: Head is normocephalic and atraumatic. No posterior oropharynx erythema. EYES: No conjunctival icterus, injection. PERRL.? Moderate conjunctival pallor. NECK: No meningeal signs. RESP: Able to speak in full sentences. Normal respiratory effort. CTAB. CARDIO: Regular rate. Regular rhythm. 2+ DP and radial pulses bilaterally. GI: Nondistended. Soft. ? Mild tenderness palpation in the epigastric region without rebound or guarding or rigidity.? Negative Garcia sign.? No McBurney's point tenderness to palpation.? No palpable masses or hernias. : No CVA tenderness to palpation.? SKIN: No rashes or lesions noted on exposed skin. NEURO: Moves all extremities. ? Expressive aphasia. EXTREM/MSK/BACK: No pedal edema. PSYCH: Normal affect. Objective Data Vital Signs Vital Signs: Vital Signs - 24 hr 05/17/23 15:31 05/17/23 16:36 05/17/23 17:21 Temperature 97.4 F L Pulse Rate 72 80 75 Respiratory Rate 24 H 19 18 Blood Pressure 102/89 140/71 113/71 Pulse Oximetry 100 100 100 Oxygen Delivery Room
[2023-05-18 10:38] LABS: Hematocrit 22.2 % (37.0-47.0)
[2023-05-18 10:48] LABS: Hemoglobin 6.9 g/dL (12.0-15.0)
--- NOTE | 2023-05-18 11:22 | PC.NURSE ---
Pt off floor for EGD via stretcher
[2023-05-18] MEDS: LACTATED RINGERS 1,000 ML 150 ML IV CONT (11:38)
--- NOTE | 2023-05-18 11:51 | WPDANESEPPF ---
Anes - Initial Pre Proc Eval Procedure: Operation Date: 05/18/23 12:30 Proposed Procedures p Esophagogastroduodenoscopy - Kevin Campbell MD Date/Time: 05/18/23 11:51 Surgeon: Shruthi Johnston MD Pre Op Diagnosis: GI Bleed Patient Data Age: 83 Gender: F Height: 1.27 m Weight: 49.1 kg Last Vital Signs Temp 98.5 F 05/18/23 11:35 Pulse 79 05/18/23 11:35 Resp 18 05/18/23 11:35 BP 147/101 H 05/18/23 11:35 Pulse Ox 100 05/18/23 11:35 O2 Del Method Nasal Cannula 05/18/23 11:35 O2 Flow Rate 2 05/18/23 11:35 Allergies Allergy/AdvReac Type Severity Reaction Status Date / Time naproxen Allergy Severe cardiac Verified 05/18/23 11:33 arrest NSAIDS (Non-Steroidal Allergy Severe cardiac Verified 05/18/23 11:33 Anti-Inflamma arrest morphine Allergy Mild unknown Verified 05/18/23 11:33 Home Medications Medication Instructions Recorded Confirmed Type misoprostol 200 mcg tablet 200 mcg PO DAILY 11/05/19 05/18/23 History atorvastatin 80 mg tablet 80 mg PO HS 08/29/20 05/18/23 History aspirin 81 mg chewable tablet 81 mg PO DAILY 05/11/22 05/18/23 History carvedilol 12.5 mg tablet (Coreg) 12.5 mg PO BID 05/11/22 05/18/23 History citalopram 20 mg tablet 20 mg PO DAILY 05/11/22 05/18/23 History levetiracetam 1,000 mg tablet 1,500 mg PO BID 05/11/22 05/18/23 History buspirone 15 mg tablet 15 mg PO TID 01/04/23 05/18/23 History pantoprazole 40 mg tablet,delayed 40 mg PO BID 01/04/23 05/18/23 History release pyridoxine (vitamin B6) 100 mg 100 mg PO DAILY 01/04/23 05/18/23 History tablet cephalexin 250 mg capsule 250 mg PO BID 01/31/23 05/18/23 History potassium bicarbonate-citric acid 25 meq PO BID 01/31/23 05/18/23 History 25 mEq effervescent tablet (Klor-Con/EF) Laboratory Tests 05/17/23 05/17/23 05/17/23 16:42 18:12 18:27 WBC 9.2 K/mm3 (4.5-10.0) RBC 2.08 L M/mm3 (4.2-5.4) Hgb 4.9 L* D g/dL (12.0-15.0) Hct 16.5 L* % (37.0-47.0) MCV 79.3 L fl (80-100) MCH 23.6 L pg (26-34) MCHC 29.7 L g/dl (32-36) RDW 17.2 H % (11.5-14.5) Plt Count 202 k/mm3 (150-375) MPV 10.7 H fl (7.4-10.4) Immature Gran % (Auto) 0.8 H % (0-0.5) Neut % (Auto) 89.9 H % (45.5-73.1) Lymph % (Auto) 6.5 L % (18.3-44.2) [place] % (Auto) 2.7 % (2.6-8.5) Eos % (Auto) 0.0 % (0-4.4) Baso % (Auto) 0.1 L % (0.2-1.2) Lymph # (Auto) 0.60 L K/mm3 (0.9-3.2) [place] # (Auto) 0.3 K/mm3 (0.1-0.6) Eos # (Auto) 0.0 K/mm3 (0-0.3) Baso # (Auto) 0.0 K/mm3 (0.0-0.1) Abs Immat Gran (auto) 0.07 H K/mm3 (0.00-0.031) Absolute Neuts (auto) 8.3 H K/mm3 (1.3-6.7) Absolute Nucleated RBC 0.0 K/mm3 (0.0-0.012) Nucleated RBC % 0.0 % (0.0-0.2) Platelet Estimate Adequate (Adequate) Hypochromasia 2+ (NORMAL) Anisocytosis 1+ (NORMAL) Ovalocytes 1+ (NORMAL) Crenated Cell 2+ (NORMAL) Schistocytes 1+ (NORMAL) PT 15.3 H Seconds (11.1-14.7) INR 1.2 APTT 26.2 SECONDS (22.3-36.8) Sodium 138 mmol/L (137-145) Potassium 5.1 H mmol/L (3.4-5.0) Chloride 108 H mmol/L (98-107) Carbon Dioxide 21 L mmol/L (22-30) Anion Gap 9 mmol/L (8-16) BUN 60 H D mg/dL (7-17) Creatinine 1.20 H mg/dL (0.7-1.0) Estim Creat Clear Calc Not Reportable Estimated GFR 43 L (59 - ) Glucose 138 H mg/dL (65-110) POC Capillary Glucose Lactic Acid 2.5 H mmol/L (0.7-2.0) Calcium 8.6 mg/dL (8.4-10.2) Magnesium 2.0 mg/dL (1.6-2.3) Total Bilirubin 0.2 mg/dL (0.2-1.3) AST 29 U/L (14-36) AL
--- NOTE | 2023-05-18 12:21 | WPDGICN ---
Assessment and Plan Assessment and plan (1) Acute GI bleeding: Code(s): K92.2 - Gastrointestinal hemorrhage, unspecified Status: Acute Assessment and Plan: known history of peptic ulcer disease that required endoscopic intervention and blood transfusion, last egd showed jejunal ulcer that required intervention s/o blood transfusion iv protonix egd today (2) Acute on chronic blood loss anemia: Code(s): D62 - Acute posthemorrhagic anemia Status: Acute Assessment and Plan: keep hgb >7 avoid nsaid's (3) Abdominal pain: Qualifiers: Abdominal location: epigastric Qualified Code(s): R10.13 - Epigastric pain Code(s): R10.9 - Unspecified abdominal pain Status: Acute (4) Gastrojejunal ulcer with hemorrhage: Code(s): K28.4 - Chronic or unspecified gastrojejunal ulcer with hemorrhage Status: Acute Assessment and Plan: will reassess with egdd (5) Ischemic cerebrovascular accident (CVA): Onset Date: 08/14/20 Code(s): I63.9 - Cerebral infarction, unspecified Status: Acute (6) Expressive aphasia: Code(s): R47.01 - Aphasia Status: Acute Assessment and Plan: she is confused (7) History of gastric bypass: Code(s): Z98.84 - Bariatric surgery status Status: Acute (8) Chronic suprapubic catheter: Code(s): Z93.59 - Other cystostomy status Status: Acute GI Consult Note Consult date/time: 05/18/23 12:21 Reason for consult: melena, acute on chronic anemia, previous PUD HPI: Nicole Patricia is a 83 year old female here for melena and anemia. She has a history of a stroke with expressive aphasia, also baseline confusion and unable to get accurate history from her, history is obtained from electronic medical record.?She started complaining of 4 days of abdominal pain and boyfriend brought her to the ER for evaluation due to the abdominal pain.? She has a history of Marlee-en-Y gastric bypass in 2008 and recurrent GI bleeding that has required transfusions multiple times in the past year.? Most recently, she had an EGD on 02/01/[address] Vazquez that showed a proximal jejunal ulcer that was cauterized and epinephrine was injected.? She was found to have profound anemia with a hemoglobin of 4.9 and hematocrit 16.5.? CTA of the abdomen and pelvis showed borderline dilation of a few gas and fluid-filled loops of small bowel in the right abdomen with transition point in the inferior right pelvis which could be due to ileus, enteritis, or less likely early/partial small bowel obstruction.? Also noted was a small amount of gas and suprapubic Hammer catheter, 2 mm nonobstructing stone in the lower pole of the right kidney, severe left renal atrophy, benign-appearing cystic lesion in the pancreas.? CT of the head with no acute intracranial changes. She received blood transfusion. Review of Systems Review of Systems: ROS unobtainable: Yes unobtainable due to mental status PMFSH Past Medical History Medical History (Updated 05/18/23 @ 12:27 by Kevin Campbell MD) Acute on chronic blood loss anemia Atrophy of left kidney Expressive aphasia Gastrojejunal ulcer with hemorrhage History of gastroscopy 08/18/09, 09/09/09, with structure Hypertension Iron (Fe) deficiency anemia Ischemic cerebrovascular accident (CVA) (08/14/20) Treated with tPA and thrombectomy Seizure disorder Urinary incontinence Vaginal delivery 1960, , full term, female, 7#10 1969, , full term, female, 7#10 Surgical History Surgical History (Updated 05/18/23 @ 12:27 by Kevin Campbell MD) Chronic suprapubic catheter H/O rectal polypectomy 11/13/08, 08/27/03 H/O right heart catheterization 12/17/08 unsure if lt or rt History of breast biopsy 06/09/10, stereotactic, biopsy rt breast History of cholecystectomy 05/09/09 History of endoscopy 12/16/09, 02/10/10, 08/25/10, 04/26/18 History of esophagogastroduoden
[2023-05-18] MEDS: SODIUM CHLORIDE 0.9% IV 250 ML 30 ML IV CONT (15:00)
[2023-05-18] MEDS: TUBING, BLOOD PLUM PUMP TUBING 1 EACH XX (15:00)
--- NOTE | 2023-05-18 16:00 | PC.NURSE ---
Dr. Wright was at
[2023-05-18] MEDS: SUCRALFATE SUSP 100 MG/ML 10 ML UDC 1000 MG PO ×2 (16:30→21:13)
[2023-05-18 17:14] LABS: Hematocrit 26.6 % (37.0-47.0); Hemoglobin 8.3 g/dL (12.0-15.0)
[2023-05-18 17:25] LABS: Iron 48 ug/dL (37-170)
[2023-05-18 17:34] LABS: Percent Iron Saturation 12 % (20-50)
--- NOTE | 2023-05-18 18:29 | PC.NURSE ---
Dr. Wright at bedside. This RN reported to him that no home meds have been ordered for patient. Awaiting orders
[2023-05-18 19:34] LABS: Glucose Point of Care 109 mg/dl (65-105)
[2023-05-18] MEDS: busPIRone HCL 5 MG TABLET 15 MG PO (21:06)
[2023-05-18] MEDS: ATORVASTATIN 40 MG TABLET 80 MG PO (21:07)
[2023-05-18] MEDS: carvediloL 12.5 MG TABLET PO (21:07)
[2023-05-18] MEDS: levETIRAcetam 500 MG TABLET 1500 MG PO (21:08)
[2023-05-18] MEDS: PANTOPRAZOLE SODIUM IV 40 MG VIAL IV PUSH (21:13)
[2023-05-18 23:04] LABS: Hematocrit 24.5 % (37.0-47.0); Hemoglobin 7.6 g/dL (12.0-15.0)
[2023-05-19] VITALS (15 sets, daily range): BP systolic 123–149; BP diastolic 59–72; PULSE 59–79; RESP 16–22; TEMP 36.3–36.6; O2SAT 97–100
[2023-05-19 01:13] LABS: Glucose Point of Care 107 mg/dl (65-105)
[2023-05-19 04:35] LABS: Hematocrit 24.9 % (37.0-47.0); Hemoglobin 7.7 g/dL (12.0-15.0)
[2023-05-19] MEDS: SUCRALFATE SUSP 100 MG/ML 10 ML UDC 1000 MG PO ×4 (05:54→20:57)
[2023-05-19] MEDS: CEPHALEXIN 250 MG CAPSULE PO ×2 (08:40→18:25)
[2023-05-19] MEDS: CITALOPRAM HYDROBROMIDE 20 MG TABLET PO (08:40)
[2023-05-19] MEDS: busPIRone HCL 5 MG TABLET 15 MG PO (08:40)
[2023-05-19] MEDS: levETIRAcetam 500 MG TABLET 1500 MG PO ×2 (08:40→18:25)
[2023-05-19] MEDS: PYRIDOXINE HCL 50 MG TABLET 100 MG PO (08:41)
[2023-05-19] MEDS: POTASSIUM BICARBONATE 25 MEQ TABEF PO ×2 (08:41→18:25)
[2023-05-19] MEDS: carvediloL 12.5 MG TABLET PO ×2 (08:41→18:25)
[2023-05-19] MEDS: PANTOPRAZOLE SODIUM IV 40 MG VIAL IV PUSH ×2 (08:42→20:57)
[2023-05-19] MEDS: miSOPROStol 200 MCG TABLET PO (08:42)
--- NOTE | 2023-05-19 09:19 | PM.PNGS ---
Progress Note: A&P Assessment and Plan (1) Small bowel obstruction: Code(s): K56.609 - Unspecified intestinal obstruction, unspecified as to partial versus complete obstruction Status: Acute Assessment and Plan: resolved, exam benign, +bowel fxn, ADAT (2) Acute GI bleeding: Code(s): K92.2 - Gastrointestinal hemorrhage, unspecified Status: Acute Assessment and Plan: EGD reviewed, H/H stable s/p 2 units, cont PPI Subjective Subjective Date/Time Seen: 05/19/23 09:19 Interval history: no acute issues overnight, having bowel movt this am Review of Systems Review of Systems: All systems reviewed & are unremarkable except as noted in HPI and below Exam Const: General: cooperative, comfortable, no acute distress and ill appearing Resp: Auscultation: diminished lung sounds Cardio: Rate: regular rate Rhythm: regular rhythm GI: Inspection: normal to inspection and distended GI Palp: Yes abdominal tenderness, Yes Soft to palpation, Yes Tenderness to palpation present (GI), No Guarding due to palpation present (GI) and No Rigid due to palpation Objective Data Vital Signs Vital Signs: Vital Signs - 24 hr 05/18/23 10:00 05/18/23 11:20 05/18/23 11:35 Temperature 36.6 C 36.9 C Pulse Rate 74 75 79 Respiratory Rate 18 18 Blood Pressure 115/72 147/101 H Pulse Oximetry 100 100 Oxygen Delivery Nasal Cannula Oxygen Flow Rate 2 05/18/23 12:45 05/18/23 12:55 05/18/23 13:05 Temperature Pulse Rate 73 77 76 Respiratory Rate 18 18 22 H Blood Pressure 137/71 150/79 H 148/86 H Pulse Oximetry 100 100 100 Oxygen Delivery Nasal Cannula Nasal Cannula Nasal Cannula Oxygen Flow Rate 2 2 2 05/18/23 13:59 05/18/23 14:14 05/18/23 14:17 Temperature 36.5 C 37.1 C 37.1 C Pulse Rate 85 76 81 Respiratory Rate 22 H 20 20 Blood Pressure 154/67 H 151/79 H 151/79 H Pulse Oximetry 100 100 100 Oxygen Delivery Oxygen Flow Rate 05/18/23 13:30 05/18/23 14:00 05/18/23 15:17 Temperature 36.9 C Pulse Rate 85 77 Respiratory Rate 20 Blood Pressure 152/67 H Pulse Oximetry 100 92 Oxygen Delivery Nasal Cannula Oxygen Flow Rate 2 05/18/23 16:00 05/18/23 16:00 05/18/23 16:00 Temperature 37.0 C Pulse Rate 73 92 Respiratory Rate 20 Blood Pressure 154/68 H Pulse Oximetry 100 99 Oxygen Delivery Nasal Cannula Oxygen Flow Rate 2 05/18/23 16:17 05/18/23 16:21 05/18/23 20:00 Temperature 37.0 C 37.0 C 36.7 C Pulse Rate 92 92 75 Respiratory Rate 20 20 16 Blood Pressure 154/68 H 154/68 H 145/76 H Pulse Oximetry 99 99 100 Oxygen Delivery Oxygen Flow Rate 05/18/23 21:07 05/18/23 20:00 05/18/23 20:00 Temperature Pulse Rate 82 75 75 Respiratory Rate 16 Blood Pressure Pulse Oximetry 100 Oxygen Delivery Nasal Cannula Oxygen Flow Rate 2 05/18/23 22:00 05/18/23 23:30 05/18/23 23:51 Temperature 36.8 C Pulse Rate 74 68 70 Respiratory Rate 16 Blood Pressure 133/71 Pulse Oximetry 100 Oxygen Delivery Oxygen Flow Rate 05/18/23 23:51 05/19/23 02:00 05/19/23 04:00 Temperature 36.3 C L Pulse Rate 70 72 71 Respiratory Rate 16 16 Blood Pressure 141/64 H Pulse Oximetry 100 100 Oxygen Delivery Nasal Cannula Oxygen Flow Rate 2 05/19/23 04:00 05/19/23 04:00 05/19/23 06:00 Temperature Pulse Rate 72 72 74 Respiratory Rate 16 Blood Pressure Pulse Oximetry 100 Oxygen Delivery Nasal Cannula Oxygen Flow Rate 2 05/19/23 08:00 05/19/23 08:41 05/19/23 08:55 Temperature 36.4 C Pulse Rate 1 L 79 Respiratory Rate 20 Blood Pressure 149/72 H Pulse Oximetry 98 98 Oxygen Delivery Nasal Cannula Oxygen Flow Rate 2 05/19/23 09:02 Temperature Pulse Rate Respiratory Rate Blood Pressure Pulse Oximetry 97 Oxygen Delivery Nasal Cannula Oxygen Flow Rate 1 Intake/Output Intake/Output: Intake & Output 05/16/23 05/17/23 05/18/23 05/19/23 23:59 23:59 23:59 23:59 Int
--- NOTE | 2023-05-19 09:37 | PM.IMPN ---
Progress Note: A&P Assessment and Plan (1) Acute GI bleeding: Code(s): K92.2 - Gastrointestinal hemorrhage, unspecified Status: Acute (2) Symptomatic anemia: Code(s): D64.9 - Anemia, unspecified Status: Acute (3) Anemia: Qualifiers: Anemia type: unspecified type Qualified Code(s): D64.9 - Anemia, unspecified Code(s): D64.9 - Anemia, unspecified Status: Acute (4) Small bowel obstruction: Code(s): K56.609 - Unspecified intestinal obstruction, unspecified as to partial versus complete obstruction Status: Acute Plan ?Patient is an 83-year-old female presents to the emergency department accompanied by her boyfriend for abdominal discomfort.? Patient states that she is epigastric turning sensation for the past couple days, not gone away, denies history is the past.? Patient is to history of low blood counts and has a history of ulcers in her stomach and has had a blood transfusion as recently as a couple months ago and has had multiple blood transfusions for this in the past.? Patient has not noticed any bloody bowel movements, melena, hematochezia, urinary discomfort, cough, fever, chest pain, difficulty breathing, recent injuries, use of blood thinners, new or change medications.? Patient admits to some slight lightheadedness.? Profound anemia Patient will be admitted for further management, transfuse 2 packed RBC, f/u hemoglobin q6h continue IV Protonix infusion, monitor vital signs closely. 05/18, hemoglobin dropped back to 6.9, transfuse 1 pack RBC 2/15 H/H stable Acute GI bleeding? 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 Most recently, she had an EGD on 02/01/2023 that showed a proximal jejunal ulcer that was cauterized and epinephrine was injected.? Workup in the ER yesterday showed profound anemia with a hemoglobin of 4.9 and hematocrit 16.5.? GI and and general surgeon were consulted for the GI bleeding.? scheduled to have an EGD that shows benign ulcer without active bleeding and gastric jejunal anastomosis 05/19/23 Follow-up ferritin and iron panel, ferritin 5.8, low iron saturation including iron deficiency Start Venofer 100 mg daily IV Small-bowel obstruction CTA of the abdomen and pelvis showed borderline dilation of a few gas and fluid-filled loops of small bowel in the right abdomen with transition point in the inferior right pelvis which could be due to ileus, enteritis, or less likely early/partial small bowel obstruction.? Keep patient Consult general surgeon Subjective Date/time seen: 05/19/23 09:37 Interval history: I saw and examined the patient today in presents of patient's family, patient feels better, denies lightheadedness, chest pain shortness breast. Patient is afebrile, hemodynamically stable, hemoglobin stable, Exam Narrative: ?CONST: No acute distress. Well nourished. HENMT: Head is normocephalic and atraumatic. No posterior oropharynx erythema. EYES: No conjunctival icterus, injection. PERRL.? Moderate conjunctival pallor. NECK: No meningeal signs. RESP: Able to speak in full sentences. Normal respiratory effort. CTAB. CARDIO: Regular rate. Regular rhythm. 2+ DP and radial pulses bilaterally. GI: Nondistended. Soft. ? Mild tenderness palpation in the epigastric region without rebound or guarding or rigidity.? Negative Garcia sign.? No McBurney's point tenderness to palpation.? No palpable masses or hernias. : No CVA tenderness to palpation.? SKIN: No rashes or lesions noted on exposed skin. NEURO: Moves all extremities. ? Expressive aphasia. EXTREM/MSK/BACK: No pedal edema. PSYCH: Normal affect. Objective Data Vital Signs Vital Signs: Vital Signs - 24 hr 05/18/23 10:00 05/18/23 11:20 05/18/23 11:35 Temperature 98 F 98.5 F Pulse Rate 74 75 79 Respiratory Rate 18 18 Blood Pressure 115/72 147/101 H Pulse Oximetry 100 100 Oxygen Deliv
[2023-05-19 10:26] LABS: Basophils Percent Auto 0.5 % (0.2-1.2); Eosinophils Percent Auto 0.4 % (0-4.4); Hematocrit 26.5 % (37.0-47.0); Hemoglobin 8.1 g/dL (12.0-15.0); Immature Granulocyte Absolute 0.01 K/mm3 (0.00-0.031); Immature Granulocyte Percent A 0.2 % (0-0.5); Immature Platelet Fraction Pct 6.6 % (0.9-11.2); Lymphocytes Absolute Auto 0.97 K/mm3 (0.9-3.2); Lymphocytes Percent Auto 17.2 % (18.3-44.2); Mean Corpuscular HGB Conc 30.6 g/dl (32-36); Mean Corpuscular Hemoglobin 25.6 pg (26-34); Mean Corpuscular Volume 83.6 fl (80-100); Mean Platelet Volume 10.4 fl (7.4-10.4); Monocytes Absolute Auto 0.6 K/mm3 (0.1-0.6); Monocytes Percent Auto 9.9 % (2.6-8.5); Neutrophils Percent Auto 71.8 % (45.5-73.1); Platelet Count Result 137 k/mm3 (150-375); Red Blood Count 3.17 M/mm3 (4.2-5.4); Red Cell Distribution Width 18.2 % (11.5-14.5); White Blood Count 5.6 K/mm3 (4.5-10.0)
[2023-05-19 10:47] LABS: Anion Gap 2 mmol/L (8-16); Blood Urea Nitrogen 27 mg/dL (7-17); Calcium 8.1 mg/dL (8.4-10.2); Carbon Dioxide 28 mmol/L (22-30); Chloride 106 mmol/L (98-107); Estimated Glomerular Filt Rate 43; Glucose 112 mg/dL (65-110); Potassium 4.1 mmol/L (3.4-5.0); Sodium 136 mmol/L (137-145)
--- NOTE | 2023-05-19 11:37 | WPDANESPN ---
Anes - Prog Note Post-Op Date/Time: 05/19/23 11:37 Cardiovascular status: normal Respiratory status: normal Airway patency: baseline Mental status: baseline Post-Op hydration status: normal Vital Signs: Last Vital Signs Temp 36.4 C 05/19/23 08:00 Pulse 79 05/19/23 08:41 Resp 20 05/19/23 08:00 BP 149/72 H 05/19/23 08:00 Pulse Ox 97 05/19/23 09:02 O2 Del Method Nasal Cannula 05/19/23 09:02 O2 Flow Rate 1 05/19/23 09:02 Pain Score (VAS): 04/13 I/O: Intake & Output 05/18/23 05/19/23 05/19/23 23:59 07:59 15:59 Intake Total 670 500 Output Total 750 650 Balance -80 -150 Laboratory Tests 05/19/23 09:59 05/19/23 09:59 05/17/23 05/18/23 05/18/23 18:27 16:57 18:58 WBC RBC Hgb 8.3 L Hct 26.6 L MCV MCH MCHC RDW Plt Count MPV Immature Gran % (Auto) Neut % (Auto) Lymph % (Auto) [place] % (Auto) Eos % (Auto) Baso % (Auto) Lymph # (Auto) [place] # (Auto) Eos # (Auto) Baso # (Auto) Abs Immat Gran (auto) Absolute Neuts (auto) Absolute Nucleated RBC Nucleated RBC % % Immature Plt Fraction Sodium Potassium Chloride Carbon Dioxide Anion Gap BUN Creatinine Estim Creat Clear Calc Estimated GFR Glucose POC Capillary Glucose 109 H Calcium Iron 48 TIBC 409 % Saturation 12 L Ferritin 5.80 L Blood Type A Positive Antibody Screen Negative Crossmatch See Detail 05/18/23 05/18/23 05/19/23 22:58 23:33 03:53 WBC RBC Hgb 7.6 L 7.7 L Hct 24.5 L 24.9 L MCV MCH MCHC RDW Plt Count MPV Immature Gran % (Auto) Neut % (Auto) Lymph % (Auto) [place] % (Auto) Eos % (Auto) Baso % (Auto) Lymph # (Auto) [place] # (Auto) Eos # (Auto) Baso # (Auto) Abs Immat Gran (auto) Absolute Neuts (auto) Absolute Nucleated RBC Nucleated RBC % % Immature Plt Fraction Sodium Potassium Chloride Carbon Dioxide Anion Gap BUN Creatinine Estim Creat Clear Calc Estimated GFR Glucose POC Capillary Glucose 107 H Calcium Iron TIBC % Saturation Ferritin Blood Type Antibody Screen Crossmatch 05/19/23 09:59 WBC 5.6 RBC 3.17 L Hgb 8.1 L Hct 26.5 L MCV 83.6 D MCH 25.6 L MCHC 30.6 L RDW 18.2 H Plt Count 137 L MPV 10.4 Immature Gran % (Auto) 0.2 Neut % (Auto) 71.8 Lymph % (Auto) 17.2 L [place] % (Auto) 9.9 H Eos % (Auto) 0.4 Baso % (Auto) 0.5 Lymph # (Auto) 0.97 [place] # (Auto) 0.6 Eos # (Auto) 0.0 Baso # (Auto) 0.0 Abs Immat Gran (auto) 0.01 Absolute Neuts (auto) 4.0 Absolute Nucleated RBC 0.0 Nucleated RBC % 0.0 % Immature Plt Fraction 6.6 Sodium 136 L Potassium 4.1 Chloride 106 Carbon Dioxide 28 Anion Gap 2 L BUN 27 H D Creatinine 1.20 H Estim Creat Clear Calc Not Reportable Estimated GFR 43 L Glucose 112 H POC Capillary Glucose Calcium 8.1 L Iron TIBC % Saturation Ferritin Blood Type Antibody Screen Crossmatch Post-procedural complaints: none Patient Feedback: Patient satisfied with anesthetic care.
--- NOTE | 2023-05-19 12:54 | WPDGIPROGNO ---
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, also iron h/h improved after blood transfusion (3) History of gastric bypass: Code(s): Z98.84 - Bariatric surgery status Status: Acute Assessment and Plan: multiple GI issues since surgery (4) Expressive aphasia: Code(s): R47.01 - Aphasia Status: Acute (5) Acute kidney injury: Code(s): N17.9 - Acute kidney failure, unspecified Status: Acute Assessment and Plan: improving Subjective Date/time seen: 05/19/23 12:54 Interval history: egd yesterday with non bleeding ulcer at GJ anastomosis, no signs of active bleeding, s/p gastric bypass no more bleeding, several family members here Review of Systems Review of Systems: All systems reviewed & are unremarkable except as noted in HPI and below Exam Const: General: comfortable and no acute distress Nutritional Appearance: average body habitus Orientation/consciousness: oriented to person Other: pleasantly confused HENMT: Head: normocephalic and atraumatic Mouth: Yes moist mucous membranes Eyes: General: appearance normal, both eyes and all related structures Sclera: sclerae normal Neck: Neck: supple Resp: Effort & Inspection: no respiratory distress Auscultation: clear to auscultation bilaterally Cardio: Rate: regular rate Rhythm: regular rhythm Heart sounds: S1 normal heart sound present and S2 normal heart sound present GI: Inspection: non-distended, scar (midline), no visible herniation and other (suprapubic urinary catheter with clear urine) GI Palp: Yes Soft to palpation, Yes Tenderness to palpation present (GI) (LLQ), No Guarding due to palpation present (GI) and No Rebound tenderness present Auscultation: Hypoactive bowel sounds present : Other: suprapubic catheter in place Skin: General skin exam: no rashes or lesions noted Neuro: General: moves all extremities and no focal motor deficits Speech: Expressive aphasia present Other: pleasant but confused Extrem: General: normal to inspection and no edema Psych: Attitude: cooperative Objective Data Vital Signs Vital Signs: Vital Signs - 24 hr 05/18/23 12:55 05/18/23 13:05 05/18/23 13:59 Temperature 97.7 F Pulse Rate 77 76 85 Respiratory Rate 18 22 H 22 H Blood Pressure 150/79 H 148/86 H 154/67 H Pulse Oximetry 100 100 100 Oxygen Delivery Nasal Cannula Nasal Cannula Oxygen Flow Rate 2 2 05/18/23 14:14 05/18/23 14:17 05/18/23 13:30 Temperature 98.8 F 98.8 F Pulse Rate 76 81 Respiratory Rate 20 20 Blood Pressure 151/79 H 151/79 H Pulse Oximetry 100 100 100 Oxygen Delivery Nasal Cannula Oxygen Flow Rate 2 05/18/23 14:00 05/18/23 15:17 05/18/23 16:00 Temperature 98.5 F Pulse Rate 85 77 73 Respiratory Rate 20 Blood Pressure 152/67 H Pulse Oximetry 92 Oxygen Delivery Oxygen Flow Rate 05/18/23 16:00 05/18/23 16:00 05/18/23 16:17 Temperature 98.6 F 98.6 F Pulse Rate 92 92 Respiratory Rate 20 20 Blood Pressure 154/68 H 154/68 H Pulse Oximetry 100 99 99 Oxygen Delivery Nasal Cannula Oxygen Flow Rate 2 05/18/23 16:21 05/18/23 20:00 05/18/23 21:07 Temperature 98.6 F 98.1 F Pulse Rate 92 75 82 Respiratory Rate 20 16 Blood Pressure 154/68 H 145/76 H Pulse Oximetry 99 100 Oxygen Delivery Oxygen Flow Rate 05/18/23 20:00 05/18/23 20:00 05/18/23 22:00 Temperature
[2023-05-19] MEDS: IRON SUCROSE COMPLEX 100 MG in SODIUM CHLORIDE 0.9% IV 50 ML 220 MG IVPB (13:40)
[2023-05-19] MEDS: ACETAMINOPHEN 325 MG TABLET 650 MG PO (18:24)
[2023-05-19] MEDS: ATORVASTATIN 40 MG TABLET 80 MG PO (20:57)
[2023-05-20] VITALS (15 sets, daily range): BP systolic 117–151; BP diastolic 50–87; PULSE 60–74; RESP 14–18; TEMP 36.1–37.5; O2SAT 96–98
[2023-05-20] MEDS: SUCRALFATE SUSP 100 MG/ML 10 ML UDC 1000 MG PO ×3 (05:54→16:38)
--- NOTE | 2023-05-20 07:41 | PM.IMPN ---
Progress Note: A&P Assessment and Plan (1) Acute GI bleeding: Code(s): K92.2 - Gastrointestinal hemorrhage, unspecified Status: Acute (2) Symptomatic anemia: Code(s): D64.9 - Anemia, unspecified Status: Acute (3) Anemia: Qualifiers: Anemia type: unspecified type Qualified Code(s): D64.9 - Anemia, unspecified Code(s): D64.9 - Anemia, unspecified Status: Acute (4) Small bowel obstruction: Code(s): K56.609 - Unspecified intestinal obstruction, unspecified as to partial versus complete obstruction Status: Acute Plan ?Patient is an 83-year-old female presents to the emergency department accompanied by her boyfriend for abdominal discomfort.? Patient states that she is epigastric turning sensation for the past couple days, not gone away, denies history is the past.? Patient is to history of low blood counts and has a history of ulcers in her stomach and has had a blood transfusion as recently as a couple months ago and has had multiple blood transfusions for this in the past.? Patient has not noticed any bloody bowel movements, melena, hematochezia, urinary discomfort, cough, fever, chest pain, difficulty breathing, recent injuries, use of blood thinners, new or change medications.? Patient admits to some slight lightheadedness.? Profound anemia Patient will be admitted for further management, transfuse 2 packed RBC, f/u hemoglobin q6h continue IV Protonix infusion, monitor vital signs closely. 05/18, hemoglobin dropped back to 6.9, transfuse 1 pack RBC /15 H/H stable 05/20 H/H trends up Acute GI bleeding? 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 Most recently, she had an EGD on 02/01/2023 that showed a proximal jejunal ulcer that was cauterized and epinephrine was injected.? Workup in the ER yesterday showed profound anemia with a hemoglobin of 4.9 and hematocrit 16.5.? GI and and general surgeon were consulted for the GI bleeding.? scheduled to have an EGD that shows benign ulcer without active bleeding and gastric jejunal anastomosis 05/19/23 Follow-up ferritin and iron panel, ferritin 5.8, low iron saturation including iron deficiency Starteg Venofer 100 mg daily IV change to ferrous sulfate at discharge Small-bowel obstruction CTA of the abdomen and pelvis showed borderline dilation of a few gas and fluid-filled loops of small bowel in the right abdomen with transition point in the inferior right pelvis which could be due to ileus, enteritis, or less likely early/partial small bowel the Consult general surgeon Resolved Patient tolerated diet well, had a bowel movement today Plan to discharge patient home with home health today when it is approved by GI and general surgeon. I have discussed discharge plan with patient's nurse in the IMU Subjective Date/time seen: 05/20/23 07:41 Interval history: I saw and examined the patient today in presents of patient's family, patient feels better, denies lightheadedness, chest pain shortness breast. Patient is afebrile, hemodynamically stable, hemoglobin stable, Exam Narrative: ?CONST: No acute distress. Well nourished. HENMT: Head is normocephalic and atraumatic. No posterior oropharynx erythema. EYES: No conjunctival icterus, injection. PERRL.? Moderate conjunctival pallor. NECK: No meningeal signs. RESP: Able to speak in full sentences. Normal respiratory effort. CTAB. CARDIO: Regular rate. Regular rhythm. 2+ DP and radial pulses bilaterally. GI: Nondistended. Soft. ? Mild tenderness palpation in the epigastric region without rebound or guarding or rigidity.? Negative Garcia sign.? No McBurney's point tenderness to palpation.? No palpable masses or hernias. : No CVA tenderness to palpation.? SKIN: No rashes or lesions noted on exposed skin. NEURO: Moves all extremities. ? Expressive aphasia. EXTREM/MSK/BACK: No pedal edema. PSYCH: Norm
--- NOTE | 2023-05-20 07:51 | PM.DS ---
DS: Admitting Diagnosis Discharge Date 05/20/23 Admitting Diagnosis (1) Acute GI bleeding: ?Code(s): K92.2 - Gastrointestinal hemorrhage, unspecified ?Status:?Acute (2) Symptomatic anemia: ?Code(s): D64.9 - Anemia, unspecified ?Status:?Acute (3) Anemia: ?Qualifiers: ?Anemia type:?unspecified type? Qualified Code(s):?D64.9 - Anemia, unspecified ?Code(s): D64.9 - Anemia, unspecified ?Status:?Acute (4) Small bowel obstruction: ?Code(s): K56.609 - Unspecified intestinal obstruction, unspecified as to partial versus complete obstruction ?Status:?Acute DS: Discharge Diagnosis Discharge Diagnosis (1) Acute GI bleeding: Code(s): K92.2 - Gastrointestinal hemorrhage, unspecified Status: Acute (2) Symptomatic anemia: Code(s): D64.9 - Anemia, unspecified Status: Acute (3) Anemia: Qualifiers: Anemia type: unspecified type Qualified Code(s): D64.9 - Anemia, unspecified Code(s): D64.9 - Anemia, unspecified Status: Acute (4) Small bowel obstruction: Code(s): K56.609 - Unspecified intestinal obstruction, unspecified as to partial versus complete obstruction Status: Acute DS: Summary Hospital Course Hospital Course: ?Patient is an 83-year-old female presents to the emergency department accompanied by her boyfriend for abdominal discomfort.? Patient states that she is epigastric turning sensation for the past couple days, not gone away, denies history is the past.? Patient is to history of low blood counts and has a history of ulcers in her stomach and has had a blood transfusion as recently as a couple months ago and has had multiple blood transfusions for this in the past.? Patient has not noticed any bloody bowel movements, melena, hematochezia, urinary discomfort, cough, fever, chest pain, difficulty breathing, recent injuries, use of blood thinners, new or change medications.? Patient admits to some slight lightheadedness.? Profound anemia Patient will be admitted for further management, transfuse 2 packed RBC, f/u hemoglobin q6h continue IV Protonix infusion, monitor vital signs closely. 05/18, hemoglobin dropped back to 6.9, transfuse 1 pack RBC 05/19 H/H stable 05/20 H/H trends up Acute GI bleeding? 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 Most recently, she had an EGD on 02/01/2023 that showed a proximal jejunal ulcer that was cauterized and epinephrine was injected.? Workup in the ER yesterday showed profound anemia with a hemoglobin of 4.9 and hematocrit 16.5.? GI and and general surgeon were consulted for the GI bleeding.? scheduled to have an EGD that shows benign ulcer without active bleeding and gastric jejunal anastomosis 05/19/23 Follow-up ferritin and iron panel, ferritin 5.8, low iron saturation including iron deficiency Start Venofer 100 mg daily IV change to ferrous sulfate at discharge Small-bowel obstruction CTA of the abdomen and pelvis showed borderline dilation of a few gas and fluid-filled loops of small bowel in the right abdomen with transition point in the inferior right pelvis which could be due to ileus, enteritis, or less likely early/partial small bowel the Consult general surgeon resulted Time Spent with Patient Time attestation: Total time spent providing and/or coordinating discharge services: Exam Narrative: ?CONST: No acute distress. Well nourished. HENMT: Head is normocephalic and atraumatic. No posterior oropharynx erythema. EYES: No conjunctival icterus, injection. PERRL.? Moderate conjunctival pallor. NECK: No meningeal signs. RESP: Able to speak in full sentences. Normal respiratory effort. CTAB. CARDIO: Regular rate. Regular rhythm. 2+ DP and radial pulses bilaterally. GI: Nondistended. Soft. ? Mild tenderness palpation in the epigastric region without rebound or guarding or rigidity.? Neg
[2023-05-20] MEDS: IRON SUCROSE COMPLEX 100 MG in SODIUM CHLORIDE 0.9% IV 50 ML 220 MG IVPB (08:21)
[2023-05-20] MEDS: PANTOPRAZOLE SODIUM IV 40 MG VIAL IV PUSH (08:21)
[2023-05-20] MEDS: miSOPROStol 200 MCG TABLET PO (08:24)
[2023-05-20] MEDS: POTASSIUM BICARBONATE 25 MEQ TABEF PO ×2 (08:25→16:39)
[2023-05-20] MEDS: carvediloL 12.5 MG TABLET PO ×2 (08:25→16:41)
[2023-05-20] MEDS: PYRIDOXINE HCL 50 MG TABLET 100 MG PO (08:25)
[2023-05-20] MEDS: CITALOPRAM HYDROBROMIDE 20 MG TABLET PO (08:25)
[2023-05-20] MEDS: levETIRAcetam 500 MG TABLET 1500 MG PO ×2 (08:25→16:39)
[2023-05-20] MEDS: CEPHALEXIN 250 MG CAPSULE PO ×2 (08:25→16:41)
[2023-05-20 08:34] LABS: Basophils Percent Auto 0.6 % (0.2-1.2); Eosinophils Absolute Auto 0.1 K/mm3 (0-0.3); Eosinophils Percent Auto 1.5 % (0-4.4); Hematocrit 29.6 % (37.0-47.0); Immature Granulocyte Absolute 0.04 K/mm3 (0.00-0.031); Immature Granulocyte Percent A 0.6 % (0-0.5); Lymphocytes Absolute Auto 1.06 K/mm3 (0.9-3.2); Lymphocytes Percent Auto 17.1 % (18.3-44.2); Mean Corpuscular HGB Conc 30.4 g/dl (32-36); Mean Corpuscular Hemoglobin 25.8 pg (26-34); Mean Corpuscular Volume 84.8 fl (80-100); Monocytes Absolute Auto 0.4 K/mm3 (0.1-0.6); Monocytes Percent Auto 5.6 % (2.6-8.5); Neutrophils Absolute Auto 4.6 K/mm3 (1.3-6.7); Neutrophils Percent Auto 74.6 % (45.5-73.1); Platelet Count Result 150 k/mm3 (150-375); Red Blood Count 3.49 M/mm3 (4.2-5.4); Red Cell Distribution Width 18.5 % (11.5-14.5); White Blood Count 6.2 K/mm3 (4.5-10.0)
[2023-05-20 08:44] LABS: Anion Gap 5 mmol/L (8-16); Blood Urea Nitrogen 21 mg/dL (7-17); Calcium 8.1 mg/dL (8.4-10.2); Carbon Dioxide 24 mmol/L (22-30); Chloride 106 mmol/L (98-107); Estimated Glomerular Filt Rate 53; Glucose 191 mg/dL (65-110); Potassium 3.8 mmol/L (3.4-5.0); Sodium 135 mmol/L (137-145)
[2023-05-20] MEDS: ACETAMINOPHEN 325 MG TABLET 650 MG PO (10:52)
--- NOTE | 2023-05-20 12:12 | PM.PNGS ---
Progress Note: A&P Assessment and Plan (1) Small bowel obstruction: Code(s): K56.609 - Unspecified intestinal obstruction, unspecified as to partial versus complete obstruction Status: Acute Assessment and Plan: resolved, cont to isaias diet and have bowel fxn, ok to dc from surgical standpoint (2) Acute GI bleeding: Code(s): K92.2 - Gastrointestinal hemorrhage, unspecified Status: Acute Assessment and Plan: resolved, cont PPI per GI Subjective Subjective Date/Time Seen: 05/20/23 12:12 Interval history: no acute issues, feels ok, isaias diet, no further bleeding noted Review of Systems Review of Systems: All systems reviewed & are unremarkable except as noted in HPI and below Exam Const: General: cooperative, comfortable and no acute distress Resp: Auscultation: diminished lung sounds Cardio: Rate: regular rate Rhythm: regular rhythm GI: Inspection: normal to inspection and non-distended GI Palp: No abdominal tenderness, Yes Soft to palpation and No Tenderness to palpation present (GI) Objective Data Vital Signs Vital Signs: Vital Signs - 24 hr 05/19/23 15:05 05/19/23 15:39 05/19/23 14:00 Temperature Pulse Rate 68 Respiratory Rate Blood Pressure Pulse Oximetry Oxygen Delivery Nasal Cannula Nasal Cannula Oxygen Flow Rate 1 1 05/19/23 16:00 05/19/23 16:00 05/19/23 16:00 Temperature 36.6 C Pulse Rate 72 64 Respiratory Rate 20 Blood Pressure 136/66 Pulse Oximetry 99 100 Oxygen Delivery Nasal Cannula Oxygen Flow Rate 2 05/19/23 18:25 05/19/23 18:00 05/19/23 20:00 Temperature 36.6 C Pulse Rate 66 72 65 Respiratory Rate 20 Blood Pressure 123/59 L Pulse Oximetry 97 Oxygen Delivery Oxygen Flow Rate 05/19/23 20:00 05/19/23 20:00 05/19/23 22:00 Temperature Pulse Rate 63 63 72 Respiratory Rate 20 Blood Pressure Pulse Oximetry 97 Oxygen Delivery Nasal Cannula Oxygen Flow Rate 2 05/20/23 00:00 05/20/23 00:00 05/20/23 00:00 Temperature 36.1 C L Pulse Rate 64 72 72 Respiratory Rate 18 18 Blood Pressure 128/73 Pulse Oximetry 97 97 Oxygen Delivery Nasal Cannula Oxygen Flow Rate 2 05/20/23 02:00 05/20/23 03:17 05/20/23 03:17 Temperature Pulse Rate 68 66 66 Respiratory Rate 18 Blood Pressure Pulse Oximetry 97 Oxygen Delivery Nasal Cannula Oxygen Flow Rate 2 05/20/23 04:00 05/20/23 05:22 05/20/23 07:24 Temperature 36.3 C L 37.1 C Pulse Rate 67 60 60 Respiratory Rate 16 18 Blood Pressure 137/73 151/74 H Pulse Oximetry 98 97 Oxygen Delivery Oxygen Flow Rate 05/20/23 08:25 05/20/23 08:00 05/20/23 08:00 Temperature Pulse Rate 70 69 Respiratory Rate Blood Pressure Pulse Oximetry 97 Oxygen Delivery Room Air Oxygen Flow Rate 05/20/23 10:00 Temperature Pulse Rate 62 Respiratory Rate Blood Pressure Pulse Oximetry Oxygen Delivery Oxygen Flow Rate Intake/Output Intake/Output: Intake & Output 05/17/23 05/18/23 05/19/23 05/20/23 23:59 23:59 23:59 23:59 Intake Total 850 1670 1660 455 Output Total 2550 1850 400 Balance 850 -880 -190 55 Meds/Results Medications: Active Medications Generic Name Dose Route Start Last Admin Trade Name Freq PRN Reason Stop Dose Admin Acetaminophen 650 mg 05/19/23 09:06 05/20/23 10:52 Acetaminophen 325 Mg Tablet PO 650 mg Q6H PRN Administration Mild Pain (1-3) or Fever Atorvastatin Calcium 80 mg 05/18/23 21:00 05/19/23 20:57 Atorvastatin 40 Mg Tablet PO 80 mg HS MADY Administration Carvedilol 12.5 mg 05/18/23 20:20 05/20/23 08:25 Carvedilol 12.5 Mg Tablet PO 12.5 mg BID MADY Administration Cephalexin HCl 250 mg 05/19/23 09:00 05/20/23 08:25 Cephalexin 250 Mg Capsule PO 250 mg BID MADY Administration Citalopram Hydrobromide 20 mg 05/19/23 09:00 05/20/23 08:25 Citalopram Hydrobromide 20 Mg Tablet PO 20 mg ELVIA
--- NOTE | 2023-05-20 13:34 | WPDGIPROGNO ---
Progress Note: A&P Assessment and Plan (1) Acute on chronic blood loss anemia: Code(s): D62 - Acute posthemorrhagic anemia Status: Acute Assessment and Plan: combination of anemia from previous gastric surgery/malabsorption (about 12 years ago), recurrent ulcer at GJ- this time did not require endoscopic intervention tolerating diet and hg responded to blood transfusion no objections to discharge by GI standpoint (2) Gastrojejunal ulcer with hemorrhage: Code(s): K28.4 - Chronic or unspecified gastrojejunal ulcer with hemorrhage Status: Acute Assessment and Plan: non bleeding ulcer will need terminal block assembler ppi bid, also iron h/h improved after blood transfusion (3) History of gastric bypass: Code(s): Z98.84 - Bariatric surgery status Status: Acute Assessment and Plan: multiple GI issues since surgery (4) Expressive aphasia: Code(s): R47.01 - Aphasia Status: Acute Subjective Date/time seen: 05/20/23 13:34 Interval history: doing well, tolerating lunch, no signs of bleeding Review of Systems Review of Systems: All systems reviewed & are unremarkable except as noted in HPI and below Exam Const: General: cooperative, comfortable and no acute distress HENMT: Face/Nose/Sinus: Normal nares present Eyes: Sclera: sclerae normal Neck: Neck: supple Resp: Auscultation: diminished lung sounds Cardio: Rate: regular rate Rhythm: regular rhythm GI: Inspection: normal to inspection and non-distended GI Palp: No abdominal tenderness, Yes Soft to palpation and No Tenderness to palpation present (GI) Skin: General skin exam: normal color Neuro: Other: aphasia, no changes Extrem: General: normal to inspection Objective Data Vital Signs Vital Signs: Vital Signs - 24 hr 05/19/23 15:05 05/19/23 15:39 05/19/23 14:00 Temperature Pulse Rate 68 Respiratory Rate Blood Pressure Pulse Oximetry Oxygen Delivery Nasal Cannula Nasal Cannula Oxygen Flow Rate 1 1 05/19/23 16:00 05/19/23 16:00 05/19/23 16:00 Temperature 98 F Pulse Rate 72 64 Respiratory Rate 20 Blood Pressure 136/66 Pulse Oximetry 99 100 Oxygen Delivery Nasal Cannula Oxygen Flow Rate 2 05/19/23 18:25 05/19/23 18:00 05/19/23 20:00 Temperature 97.9 F Pulse Rate 66 72 65 Respiratory Rate 20 Blood Pressure 123/59 L Pulse Oximetry 97 Oxygen Delivery Oxygen Flow Rate 05/19/23 20:00 05/19/23 20:00 05/19/23 22:00 Temperature Pulse Rate 63 63 72 Respiratory Rate 20 Blood Pressure Pulse Oximetry 97 Oxygen Delivery Nasal Cannula Oxygen Flow Rate 2 05/20/23 00:00 05/20/23 00:00 05/20/23 00:00 Temperature 96.9 F L Pulse Rate 64 72 72 Respiratory Rate 18 18 Blood Pressure 128/73 Pulse Oximetry 97 97 Oxygen Delivery Nasal Cannula Oxygen Flow Rate 2 05/20/23 02:00 05/20/23 03:17 05/20/23 03:17 Temperature Pulse Rate 68 66 66 Respiratory Rate 18 Blood Pressure Pulse Oximetry 97 Oxygen Delivery Nasal Cannula Oxygen Flow Rate 2 05/20/23 04:00 05/20/23 05:22 05/20/23 07:24 Temperature 97.3 F L 98.8 F Pulse Rate 67 60 60 Respiratory Rate 16 18 Blood Pressure 137/73 151/74 H Pulse Oximetry 98 97 Oxygen Delivery Oxygen Flow Rate 05/20/23 08:25 05/20/23 08:00 05/20/23 08:00 Temperature Pulse Rate 70 69 Respiratory Rate Blood Pressure Pulse Oximetry 97 Oxygen Delivery Room Air Oxygen Flow Rate 05/20/23 10:00 05/20/23 12:00 05/20/23 12:00 Temperature 99.5 F Pulse Rate 62 74 68 Respiratory Rate 16 Blood Pressure 117/50 L Pulse Oximetry 97 Oxygen Delivery Oxygen Flow Rate Intake/Output Intake/Output: Intake & Output 05/17/23 05/18/23 05/19/23 05/20/23 23:59 23:59 23:59 23:59 Intake Total 850 1670 1660 695 Output Total 2550 1850 400 Balance 850 -638 -205 557 Meds/Results Medications: Active Medica
--- NOTE | 2023-05-20 13:53 | PC.NURSE ---
Updated Pavithra, daughter, on discharge plan.
--- NOTE | 2023-05-20 18:58 | PC.NURSE ---
Daughter notified of discharge, family to call nursing station when they are at the front door. Daughter states please send paperwork and I will read it tomorrow
[2023-05-20 19:26] LABS: Hepatitis B Surface Antigen Negative (Negative)
[2023-05-20 19:43] LABS: Hepatitis B Surface Anti Res Negative
== END 2023-05-20 19:02 | disposition home health service (06) | DRG 378 ==
LOC: ANHED 19:10 → ANHIMU 20:18
PROVIDERS: Internal Medicine Gastroenterology; Internal Medicine Nephrology; Nurse Practitioner Family; Admitting Provider Student in an Organized Health Care Education/Training Program; Emergency Provider Student in an Organized Health Care Education/Training Program; PCP Internal Medicine Gastroenterology; Visit Provider Hospitalist
PROC: 0DJ08ZZ Inspection of Upper Intestinal Tract, Via Natural or Artificial Opening Endoscopic (ICD-10-PCS; CPT 43235; principal; 2023-05-18 12:30)
DX: K92.2 Gastrointestinal hemorrhage, unspecified (principal); D62 Acute posthemorrhagic anemia; K56.609 Unspecified intestinal obstruction, unspecified as to partial versus complete obstruction; K28.7 Chronic gastrojejunal ulcer without hemorrhage or perforation; K52.9 Noninfective gastroenteritis and colitis, unspecified; I10 Essential (primary) hypertension; E87.5 Hyperkalemia; D50.9 Iron deficiency anemia, unspecified; G40.909 Epilepsy, unspecified, not intractable, without status epilepticus; Z20.822 Contact with and (suspected) exposure to COVID-19; Z96.659 Presence of unspecified artificial knee joint; Z98.1 Arthrodesis status; Z79.82 Long term (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; Z98.84 Bariatric surgery status; I69.320 Aphasia following cerebral infarction; Z93.6 Other artificial openings of urinary tract status
CPT/HCPCS: 36415; 36430; 70450; 71045; 74174; 80048; 80053; 81001; 82728; 82948; 83540; 83550; 83605; 83690; 83735; 84484; 85014; 85018; 85025; 85055; 85610; 85730; 86706; 86850; 86900; 86901; 86923; 87340; 87637; 93005; 96361; 96365; 96366; 96375; 97110; 97116; 97161; 97165; 97530; 97535; 99285; A9270; C9113; G0378; J1756; J1815; J1940; J2270; J2405; J7040; J7050; J7120; P9016; Q9967

== ENCOUNTER 2023-05-23 11:34 | Emergency (ER) | payer MEDICARE, OTHER, SELFPAY ==
[2023-05-23] VITALS (14 sets, daily range): BP systolic 143–170; BP diastolic 74–126; PULSE 63–79; RESP 13–26; TEMP 36.6; O2SAT 97–100
[2023-05-23 12:30] LABS: Basophils Percent Auto 0.6 % (0.2-1.2); Eosinophils Absolute Auto 0.1 K/mm3 (0-0.3); Eosinophils Percent Auto 1.3 % (0-4.4); Hemoglobin 9.4 g/dL (12.0-15.0); Immature Granulocyte Absolute 0.03 K/mm3 (0.00-0.031); Immature Granulocyte Percent A 0.5 % (0-0.5); Lymphocytes Absolute Auto 0.99 K/mm3 (0.9-3.2); Lymphocytes Percent Auto 15.6 % (18.3-44.2); Mean Corpuscular HGB Conc 30.3 g/dl (32-36); Mean Corpuscular Hemoglobin 26.3 pg (26-34); Mean Corpuscular Volume 86.6 fl (80-100); Mean Platelet Volume 10.6 fl (7.4-10.4); Monocytes Absolute Auto 0.4 K/mm3 (0.1-0.6); Monocytes Percent Auto 6.3 % (2.6-8.5); Neutrophils Absolute Auto 4.8 K/mm3 (1.3-6.7); Neutrophils Percent Auto 75.7 % (45.5-73.1); Platelet Count Result 264 k/mm3 (150-375); Red Blood Count 3.58 M/mm3 (4.2-5.4); Red Cell Distribution Width 19.3 % (11.5-14.5); White Blood Count 6.3 K/mm3 (4.5-10.0)
[2023-05-23 12:40] LABS: INR 1.1; Prothrombin Time 14.3 Seconds (11.1-14.7)
[2023-05-23 12:41] LABS: Partial Thromboplastin Time 28.4 SECONDS (22.3-36.8)
[2023-05-23 12:42] LABS: Alanine Aminotransferase 29 U/L (6-35); Albumin Level 4.1 g/dL (3.5-5.1); Alkaline Phosphatase 80 U/L (38-126); Anion Gap 4 mmol/L (8-16); Aspartate Amino Transferase 23 U/L (14-36); Bilirubin,Total 0.5 mg/dL (0.2-1.3); Blood Urea Nitrogen 17 mg/dL (7-17); Carbon Dioxide 28 mmol/L (22-30); Chloride 104 mmol/L (98-107); Estimated CRCL calculation 30 ml/min; Estimated Glomerular Filt Rate 53; Glucose 122 mg/dL (65-110); Potassium 4.5 mmol/L (3.4-5.0); Sodium 136 mmol/L (137-145)
--- NOTE | 2023-05-23 13:26 | ED.GIBLEED ---
HPI - GI Bleed General Chief complaint: GI Bleed Stated complaint: rectal bleeding Time Seen by Provider: 05/23/23 13:25 History of Present Illness HPI Narrative: Patient is an 83-year-old female with history of recurrent intestinal ulcers and anemia, Marlee-en-Y gastric bypass in 2008, stroke here with dark stools. Boyfriend at bedside helps with history. They note that she was recently hospitalized, discharged about 3 days ago. During that hospitalization she had been having some concern for bleeding ulcers, no source of bleeding was found on endoscopy. She did have to have a blood transfusion during this last hospitalization. She notes that since being discharged home she has had hard stools which have been dark black in color. Patient and her boyfriend came in today for additional evaluation because they were unsure if she was bleeding again and may require a blood transfusion. Denies any bright red blood per rectum. She denies associated abdominal pain. She does believe she was started on Iron supplements at time of her discharge. Related Data Home Medications Medication Instructions Recorded Confirmed misoprostol 200 mcg tablet 200 mcg PO DAILY 11/05/19 05/18/23 atorvastatin 80 mg tablet 80 mg PO HS 08/29/20 05/18/23 carvedilol 12.5 mg tablet (Coreg) 12.5 mg PO BID 05/11/22 05/18/23 citalopram 20 mg tablet 20 mg PO DAILY 05/11/22 05/18/23 levetiracetam 1,000 mg tablet 1,500 mg PO BID 05/11/22 05/18/23 buspirone 15 mg tablet 15 mg PO TID 01/04/23 05/18/23 pyridoxine (vitamin B6) 100 mg 100 mg PO DAILY 01/04/23 05/18/23 tablet cephalexin 250 mg capsule 250 mg PO BID 01/31/23 05/18/23 potassium bicarbonate-citric acid 25 meq PO BID 01/31/23 05/18/23 25 mEq effervescent tablet (Klor-Con/EF) Allergies Allergy/AdvReac Type Severity Reaction Status Date / Time naproxen Allergy Severe cardiac Verified 05/23/23 11:36 arrest NSAIDS (Non-Steroidal Allergy Severe cardiac Verified 05/23/23 11:36 Anti-Inflamma arrest morphine Allergy Mild unknown Verified 05/23/23 11:36 Review of Systems Review of Systems: All systems reviewed & are unremarkable except as noted in HPI and below PMFSH Past Medical History Medical History (Updated 05/23/23 @ 14:21 by Karla Randolph MD) Acute on chronic blood loss anemia Atrophy of left kidney Expressive aphasia Gastrojejunal ulcer with hemorrhage History of gastroscopy 08/18/09, 09/09/09, with structure Hypertension Iron (Fe) deficiency anemia Ischemic cerebrovascular accident (CVA) (08/14/20) Treated with tPA and thrombectomy Seizure disorder Urinary incontinence Vaginal delivery 1960, , full term, female, 7#10 1970, , full term, female, 7#10 Surgical History Surgical History (Updated 05/18/23 @ 12:27 by Kevin Campbell MD) Chronic suprapubic catheter H/O rectal polypectomy 11/13/08, 08/27/03 H/O right heart catheterization 12/17/08 unsure if lt or rt History of breast biopsy 06/09/10, stereotactic, biopsy rt breast History of cholecystectomy 05/09/09 History of endoscopy 12/16/09, 02/10/10, 08/25/10, 04/26/18 History of esophagogastroduodenoscopy (EGD) 04/25/12, with upper GI History of eye surgery 11/05/14 cataract right eye, 11/20/14 cataract left eye, 07/28/18 bilateral removal of scar tissue 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, laparoscopic, marlee-en-y History of hysterectomy 07/1982 total History of knee replacement 03/31/04 bilateral History of laparoscopy 03/17/10, reduction of small bowel obstruction, release of internal hernia History of meniscectomy of left knee 05/18/00 orthoscopic with lateral release History of meniscectomy of right knee 03/29/03 orthoscopic with lateral release History of spinal fusion 03/14/98 cervical discectomy and fusion of c4-6 10/27/98 anterior interbody fusion level using MARCUS L4-5, L3-4, Doscectomy/fusion lt iliac crest graft 10/12/01 cervical discectomy and fusion of c6-7 History of spinal surgery 02/10/16 jesus
== END 2023-05-23 14:41 | disposition home or self-care (01) ==
PROVIDERS: Emergency Medicine; Emergency Provider Student in an Organized Health Care Education/Training Program; PCP Internal Medicine Gastroenterology
DX: R19.5 Other fecal abnormalities (principal); K64.9 Unspecified hemorrhoids; I10 Essential (primary) hypertension; I69.920 Aphasia following unspecified cerebrovascular disease; D50.9 Iron deficiency anemia, unspecified; R32 Unspecified urinary incontinence; Z98.84 Bariatric surgery status; Z96.653 Presence of artificial knee joint, bilateral; Z90.49 Acquired absence of other specified parts of digestive tract; Z90.710 Acquired absence of both cervix and uterus; Z98.1 Arthrodesis status
CPT/HCPCS: 36415; 80053; 85025; 85610; 85730; 86850; 86900; 86901; 99283

== ENCOUNTER 2023-06-18 12:25 | Inpatient (IN) | payer MEDICARE, OTHER, SELFPAY ==
[2023-06-18] VITALS (15 sets, daily range): BP systolic 117–149; BP diastolic 59–86; PULSE 62–104; RESP 14–19; TEMP 36.6–37.2; O2SAT 94–100; BMI 20.8
[2023-06-18 13:23] LABS: Basophils Percent Auto 0.6 % (0.2-1.2); Eosinophils Absolute Auto 0.1 K/mm3 (0-0.3); Eosinophils Percent Auto 1.1 % (0-4.4); Hematocrit 23.1 % (37.0-47.0); Hemoglobin 7.2 g/dL (12.0-15.0); Immature Granulocyte Absolute 0.02 K/mm3 (0.00-0.031); Immature Granulocyte Percent A 0.4 % (0-0.5); Lymphocytes Absolute Auto 1.49 K/mm3 (0.9-3.2); Mean Corpuscular HGB Conc 31.2 g/dl (32-36); Mean Corpuscular Volume 83.4 fl (80-100); Mean Platelet Volume 10.5 fl (7.4-10.4); Monocytes Absolute Auto 0.4 K/mm3 (0.1-0.6); Monocytes Percent Auto 7.7 % (2.6-8.5); Neutrophils Absolute Auto 3.3 K/mm3 (1.3-6.7); Neutrophils Percent Auto 62.2 % (45.5-73.1); Platelet Count Result 194 k/mm3 (150-375); Red Blood Count 2.77 M/mm3 (4.2-5.4); Red Cell Distribution Width 18.1 % (11.5-14.5); White Blood Count 5.3 K/mm3 (4.5-10.0)
[2023-06-18 13:33] LABS: INR 1.2; Prothrombin Time 15.5 Seconds (11.1-14.7)
[2023-06-18 13:34] LABS: Partial Thromboplastin Time 28.1 Seconds (22.3-36.8)
[2023-06-18 13:38] LABS: Alanine Aminotransferase 26 U/L (6-35); Albumin Level 3.7 g/dL (3.5-5.1); Alkaline Phosphatase 76 U/L (38-126); Anion Gap 3 mmol/L (8-16); Aspartate Amino Transferase 25 U/L (14-36); Bilirubin,Total 0.2 mg/dL (0.2-1.3); Blood Urea Nitrogen 33 mg/dL (7-17); Calcium 8.8 mg/dL (8.4-10.2); Carbon Dioxide 27 mmol/L (22-30); Chloride 107 mmol/L (98-107); Estimated CRCL calculation 23 ml/min; Estimated Glomerular Filt Rate 39; Glucose 82 mg/dL (65-110); Potassium 4.7 mmol/L (3.4-5.0); Sodium 137 mmol/L (137-145)
--- NOTE | 2023-06-18 13:44 | ED.GIBLEED ---
HPI - GI Bleed General Chief complaint: GI Bleed Stated complaint: Rectal Bleeding Time Seen by Provider: 06/18/23 13:06 History of Present Illness HPI Narrative: Patient is an 83-year-old female who presents ER with rectal bleeding. Three or in stools today. Has history of upper GI bleed in the past. She takes a baby aspirin daily. No syncope. She does have some weakness. No chest pain or chest pressure. She gets occasional abdominal cramping. No alleviating factors. Related Data Home Medications Medication Instructions Recorded Confirmed misoprostol 200 mcg tablet 200 mcg PO DAILY 11/05/19 05/18/23 atorvastatin 80 mg tablet 80 mg PO HS 08/29/20 05/18/23 carvedilol 12.5 mg tablet (Coreg) 12.5 mg PO BID 05/11/22 05/18/23 citalopram 20 mg tablet 20 mg PO DAILY 05/11/22 05/18/23 levetiracetam 1,000 mg tablet 1,500 mg PO BID 05/11/22 05/18/23 buspirone 15 mg tablet 15 mg PO TID 01/04/23 05/18/23 pyridoxine (vitamin B6) 100 mg 100 mg PO DAILY 01/04/23 05/18/23 tablet cephalexin 250 mg capsule 250 mg PO BID 01/31/23 05/18/23 potassium bicarbonate-citric acid 25 meq PO BID 01/31/23 05/18/23 25 mEq effervescent tablet (Klor-Con/EF) Allergies Allergy/AdvReac Type Severity Reaction Status Date / Time naproxen Allergy Severe cardiac Verified 05/23/23 11:36 arrest NSAIDS (Non-Steroidal Allergy Severe cardiac Verified 05/23/23 11:36 Anti-Inflamma arrest morphine Allergy Mild unknown Verified 05/23/23 11:36 Review of Systems Review of Systems: All systems reviewed & are unremarkable except as noted in HPI and below Constitutional: Constitutional: Reports no additional constitutional complaints ENT: Reports system reviewed and no additional complaints, except as documented Cardiovascular: Cardiovascular: Reports no additional cardiovascular complaints Respiratory: Respiratory: Reports no additional respiratory complaints Gastrointestinal: Gastrointestinal: Denies abdominal pain, Denies diarrhea, Denies nausea and Denies vomiting Comments: Rectal bleeding PMFSH Past Medical History Medical History (Updated 06/18/23 @ 14:00 by Erik Valentino MD) Acute on chronic blood loss anemia Atrophy of left kidney Expressive aphasia Gastrojejunal ulcer with hemorrhage History of gastroscopy 08/18/09, 09/09/09, with structure Hypertension Iron (Fe) deficiency anemia Ischemic cerebrovascular accident (CVA) (08/14/20) Treated with tPA and thrombectomy Seizure disorder Urinary incontinence Vaginal delivery 1960, , full term, female, 7#10 1969, , full term, female, 7#10 Surgical History Surgical History (Updated 05/18/23 @ 12:27 by Kevin Campbell MD) Chronic suprapubic catheter H/O rectal polypectomy 11/13/08, 08/27/03 H/O right heart catheterization 12/17/08 unsure if lt or rt History of breast biopsy 06/09/10, stereotactic, biopsy rt breast History of cholecystectomy 05/09/09 History of endoscopy 12/16/09, 02/10/10, 08/25/10, 04/26/18 History of esophagogastroduodenoscopy (EGD) 04/25/12, with upper GI History of eye surgery 11/05/14 cataract right eye, 11/20/14 cataract left eye, 07/28/18 bilateral removal of scar tissue 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ing MARCUS L4-5, L3-4, Doscectomy/fusion lt iliac crest graft 10/12/01 cervical discectomy and fusion of c6-7 History of spinal surgery 02/10/16 lumbar decompressive laminectomy, transformal lumbar interbody fusion with PEEK spacers, posterior in
[2023-06-18] MEDS: PANTOPRAZOLE SODIUM IV 40 MG VIAL 80 MG IV PUSH (13:51)
[2023-06-18] MEDS: PANTOPRAZOLE SODIUM IV 80 MG in SODIUM CHLORIDE 0.9% IV 500 ML 50 MG IV CONT (14:15)
--- NOTE | 2023-06-18 15:00 | ADMGEN ---
This patient, Nicole Patricia, was admitted to 3 Med Surg Room 307-02 @ 1500. Patient/family oriented to hospital policies and general routines including ID bracelet, bed and alarms, visiting hours, pain management, procedures, bathroom and other care routines, personal items, smoking policy, room service/diet, and visiting hours. Information on how to activate the Rapid Response Team has been discussed. Patient/Family are encouraged to report perceived risks to care and to ask questions if they do not understand what they are told or what they should do.
--- NOTE | 2023-06-18 15:40 | PM.IMHP ---
H&P: HPI History of Present Illness Date/Time: 06/18/23 15:40 Chief Complaint: Rectal Bleeding Narrative: 83 y/o F presents here with rectal bleeding with PMH of acute on chronic blood loss anemia, CVA (thrombectomy and TPA, 2020, residual expressive aphasia), GJ ulcer with hemorrhage, HTN, SHAMEKA, urinary incontinence, and seizure disorder. Patient presented here for evaluation of rectal bleeding from home. Patient reports that she began today, has passed 3 bloody stools. Described as dark/black, some mixture of bright, and formed. No nausea or vomiting. No abdominal pain or indigestion. Reports history of gastrojejunal ulcer with hemorrhage previously, follows with GI. Last evaluated by industrial economics teacher here during her last admission at [facility]. Seen from 05/17/23-05/20/23 for abdominal discomfort, found to be profoundly anemic which required 2 units transfused, and had an SBO. EGD done on 05/18/2023 which showed no esophagitis, evidence of prior gastric bypass without obvious signs of gastritis, no signs of active bleeding, a single benign ulcer measuring 8 mm at the JG anastomosis without signs of bleeding. contributed to history with patient's permission due to patient's expressive aphasia. Initial VS at presentation: None 97.8 F, HR 104, R 18, 128/86, 98% on RA. ED workup showed: No leukocytosis, Hgb 7.2, and creatinine 1.3 (previously 1.0 on 05/23/2023, however appears to run between 1.1 and 1.4). [facility] Past Medical History Medical History (Updated 06/18/23 @ 14:00 by Erik Valentino MD) Acute on chronic blood loss anemia Atrophy of left kidney Expressive aphasia Gastrojejunal ulcer with hemorrhage History of gastroscopy 08/18/09, 09/09/09, with structure Hypertension Iron (Fe) deficiency anemia Ischemic cerebrovascular accident (CVA) (08/14/20) Treated with tPA and thrombectomy Seizure disorder Urinary incontinence Vaginal delivery 1960, , full term, female, 7#10 1970, , full term, female, 7#10 Surgical History Surgical History (Updated 06/18/23 @ 16:11 by Ramya Johnson APRN) Chronic suprapubic catheter secondary to CVA H/O rectal polypectomy 11/13/08, 08/27/03 H/O right heart catheterization 12/17/08 unsure if lt or rt History of breast biopsy 06/09/10, stereotactic, biopsy rt breast History of cholecystectomy 05/09/09 History of endoscopy 12/16/09, 02/10/10, 08/25/10, 04/26/18 History of esophagogastroduodenoscopy (EGD) 04/25/12, with upper GI History of eye surgery 11/05/14 cataract right eye, 11/20/14 cataract left eye, 07/28/18 bilateral removal of scar tissue 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ing MARCUS L4-5, L3-4, Doscectomy/fusion lt iliac crest graft 10/12/01 cervical discectomy and fusion of c6-7 History of spinal surgery 02/10/16 lumbar decompressive laminectomy, transformal lumbar interbody fusion with PEEK spacers, posterior intertransverse fusion, posterior spinal instrumentation, harvesting bone graft History of stress incontinence procedure using tension free vaginal tape 05/18/01 Hx of breast surgery 07/27/10, mastopexy Family History Family History Grandparent Family history of malignant neoplasm of ovary Father Family history of lung cancer Sibling Family history of lung cancer Social History Social History Social History: Code status: Full code. Smoking status: Chin
[2023-06-18 16:07] LABS: Hematocrit 21.5 % (37.0-47.0)
[2023-06-18 16:23] LABS: Hemoglobin 6.4 g/dL (12.0-15.0)
[2023-06-18] MEDS: TUBING, BLOOD PLUM PUMP TUBING 1 EACH XX ×2 (17:37→23:32)
[2023-06-18] MEDS: SODIUM CHLORIDE 0.9% IV 250 ML 30 ML IV CONT (17:37)
[2023-06-18] MEDS: carvediloL 12.5 MG TABLET PO (19:59)
[2023-06-18] MEDS: SUCRALFATE SUSP 100 MG/ML 10 ML UDC 1000 MG PO (19:59)
[2023-06-18] MEDS: levETIRAcetam 500 MG TABLET 1500 MG PO (19:59)
[2023-06-19] VITALS (13 sets, daily range): BP systolic 116–158; BP diastolic 75–81; PULSE 58–69; RESP 14–18; TEMP 36.1–37; O2SAT 95–99
[2023-06-19 03:11] LABS: Hematocrit 29.3 % (37.0-47.0); Hemoglobin 9.4 g/dL (12.0-15.0)
[2023-06-19] MEDS: SUCRALFATE SUSP 100 MG/ML 10 ML UDC 1000 MG PO ×4 (05:41→20:14)
[2023-06-19 08:27] LABS: Basophils Percent Auto 0.7 % (0.2-1.2); Eosinophils Absolute Auto 0.1 K/mm3 (0-0.3); Eosinophils Percent Auto 2.1 % (0-4.4); Hematocrit 30.8 % (37.0-47.0); Hemoglobin 9.7 g/dL (12.0-15.0); Immature Granulocyte Absolute 0.01 K/mm3 (0.00-0.031); Immature Granulocyte Percent A 0.2 % (0-0.5); Lymphocytes Absolute Auto 1.34 K/mm3 (0.9-3.2); Lymphocytes Percent Auto 31.9 % (18.3-44.2); Mean Corpuscular HGB Conc 31.5 g/dl (32-36); Mean Corpuscular Hemoglobin 27.2 pg (26-34); Mean Corpuscular Volume 86.3 fl (80-100); Mean Platelet Volume 10.4 fl (7.4-10.4); Monocytes Absolute Auto 0.4 K/mm3 (0.1-0.6); Monocytes Percent Auto 9.3 % (2.6-8.5); Neutrophils Absolute Auto 2.3 K/mm3 (1.3-6.7); Neutrophils Percent Auto 55.8 % (45.5-73.1); Platelet Count Result 151 k/mm3 (150-375); Red Blood Count 3.57 M/mm3 (4.2-5.4); Red Cell Distribution Width 16.5 % (11.5-14.5); White Blood Count 4.2 K/mm3 (4.5-10.0)
[2023-06-19] MEDS: levETIRAcetam 500 MG TABLET 1500 MG PO ×2 (08:43→20:12)
[2023-06-19] MEDS: carvediloL 12.5 MG TABLET PO ×2 (08:43→20:13)
[2023-06-19 08:49] LABS: Alanine Aminotransferase 26 U/L (6-35); Alkaline Phosphatase 73 U/L (38-126); Anion Gap 3 mmol/L (8-16); Aspartate Amino Transferase 26 U/L (14-36); Bilirubin,Total 0.3 mg/dL (0.2-1.3); Blood Urea Nitrogen 20 mg/dL (7-17); Calcium 8.7 mg/dL (8.4-10.2); Carbon Dioxide 24 mmol/L (22-30); Chloride 109 mmol/L (98-107); Estimated CRCL calculation 27 ml/min; Estimated Glomerular Filt Rate 48; Glucose 90 mg/dL (65-110); Potassium 4.4 mmol/L (3.4-5.0); Sodium 136 mmol/L (137-145)
--- NOTE | 2023-06-19 14:18 | PM.IMPN ---
Progress Note: A&P Assessment and Plan (1) Acute upper gastrointestinal bleeding: Code(s): K92.2 - Gastrointestinal hemorrhage, unspecified Status: Acute Assessment and Plan: Hgb 7.2 -> 6.4 -> 9.4 -> 9.7 - previously 9.4 on 05/23/23 - started on Protonix IV 40 mg BID started with 80 IVP bolus - continue sucralfate - transfused 2 units on 06/17, repeat CBC - anemia labs not drawn prior to transfusion - GI consulted plan for EGD on 06/19 - EGD (05/18/23): Esophagus examined and makers was normal with a normal Z-line, no ulcers or masses. No esophagitis Z line located at 39 cm from the incisors Evidence of prior gastric bypass with small gastric pouch, no obvious signs of gastritis or signs of active bleeding. Single benign ulcer measuring 8 mm was visualized at the JG anastomosis. Ulcer was clean based without signs of bleeding. No need for endoscopic intervention at that time. - NPO - trend labs, monitor VS (2) Anemia: Qualifiers: Anemia type: unspecified type Qualified Code(s): D64.9 - Anemia, unspecified Code(s): D64.9 - Anemia, unspecified Status: Acute Assessment and Plan: - currently acute/chronic, some underlying SHAMEKA but currently experiencing a suspected upper GI bleed given history - hemoglobin 7.2 on presentation - 2 units PRBC given on 06/17 - hold supplementation at present - trend blood counts - monitor vitals (3) Hypertension: Qualifiers: Hypertension type: primary hypertension Qualified Code(s): I10 - Essential (primary) hypertension Code(s): I10 - Essential (primary) hypertension Status: Acute Assessment and Plan: - chronic, currently 122/63 - continue home medications: Carvedilol 12.5 mg b.i.d. - monitor Subjective Date/time seen: 06/19/23 14:18 Interval history: Patient doing well today. I discussed plans with GI doc and will do EGD tomorrow. Patient started a diet. She denies abdominal pain, nausea, vomiting, dizziness, lightheadedness or shortness of breath. She states that she is not having any diarrhea her stools are black. Patient recently had EGD last month showing a 8 mm ulcer. Exam Narrative: GENERAL: Comfortable, no acute distress HENMT: moist mucous membranes EYES: EOM intact b/l NECK: no lymphadenopathy RESPIRATORY: clear to auscultation CARDIO: RRR GI: soft, nontender, bowel sounds present SKIN: no rashes EXTREMITIES: no edema, redness or tenderness Objective Data Vital Signs Vital Signs: Vital Signs - 24 hr 06/18/23 14:32 06/18/23 14:46 06/18/23 16:00 Temperature 98.2 F Pulse Rate 66 79 70 Respiratory Rate 16 19 18 Blood Pressure 126/63 122/63 142/63 H Pulse Oximetry 100 99 Oxygen Delivery 06/18/23 17:37 06/18/23 17:53 06/18/23 15:00 Temperature 98.9 F 98.9 F Pulse Rate 73 65 Respiratory Rate 17 16 Blood Pressure 138/59 L 125/61 Pulse Oximetry 94 100 Oxygen Delivery Room Air 06/18/23 18:53 06/18/23 16:00 06/18/23 20:00 Temperature 98.5 F Pulse Rate 69 71 82 Respiratory Rate 16 Blood Pressure 146/72 H Pulse Oximetry 99 Oxygen Delivery 06/18/23 20:00 06/18/23 20:45 06/18/23 22:43 Temperature 98.7 F 98.5 F Pulse Rate 65 63 Respiratory Rate 16 16 Blood Pressure 149/61 H 144/73 H Pulse Oximetry 100 96 Oxygen Delivery Room Air 06/18/23 22:58 06/18/23 23:58 06/19/23 00:00 Temperature 98.7 F 98.7 F Pulse Rate 62 65 66 Respiratory Rate 16 16 Blood Pressure 142/80 H 142/75 H Pulse Oximetry 98 96 Oxygen Delivery 06/19/23 00:58 06/19/23 01:40 06/19/23 04:00 Temperature 98.2 F 98.6 F Pulse Rate 62 65 62 Respiratory Rate 16 16 Blood Pressure 149/78 H 151/81 H Pulse Oximetry 97 95 Oxygen Delivery 06/19/23 05:35 06/19/23 08:43 06/19/23 08:40 Temperature 97 F L Pulse Rate 63 65 Respiratory Rate 16 Blood Pressure 158/81 H Pulse Oximetry 99 Oxygen Delivery Room Air Inta
--- NOTE | 2023-06-19 14:47 | WPDGICN ---
Assessment and Plan Assessment and plan (1) Acute upper gastrointestinal bleeding: Code(s): K92.2 - Gastrointestinal hemorrhage, unspecified Status: Acute Assessment and Plan: known GJ ulcer from previous gastric surgery she has been dealing with this for some time will repeat EGD in am continue with ppi twice daily (will need terminal gauger), consideration to see again bariatric surgery (her surgeon moved away) (2) Acute on chronic blood loss anemia: Code(s): D62 - Acute posthemorrhagic anemia Status: Acute Assessment and Plan: she has baseline anemia, probably from malabsorption but also chronic ulcer at anastomosis transfuse as needed if hgb<7 (3) Gastrojejunal ulcer with hemorrhage: Code(s): K28.4 - Chronic or unspecified gastrojejunal ulcer with hemorrhage Status: Acute (4) Ischemic cerebrovascular accident (CVA): Onset Date: 08/14/20 Code(s): I63.9 - Cerebral infarction, unspecified Status: Acute (5) Expressive aphasia: Code(s): R47.01 - Aphasia Status: Acute (6) Chronic suprapubic catheter: Code(s): Z93.59 - Other cystostomy status Status: Acute GI Consult Note Consult date/time: 06/19/23 14:47 Reason for consult: melena HPI: Nicole Patricia is a 83 year old female with history of a stroke with expressive aphasia (thrombectomy and TPA, 2020), and bladder retention now with suprapubic catheter. She has a history of Johny-en-Y gastric bypass in 2008 as bariatric procedure since she had GI issues including recurrent GI bleeding that has required transfusions multiple times.? EGD on 02/01/[address] Vazquez that showed a proximal jejunal ulcer that was cauterized and epinephrine was injected. Last hospitalization 05/2023 with GJ ulcer at anastomosis but that time did not required intervention. This time again with dark stools and admitted to hospital. No nausea or vomiting, actually just had lunch because she was hungry. At home she is supposed to be on ppi bid and carafate. hgb 6.4 and given transfusion (baseline ~9). Daughter is at bedside Review of Systems Constitutional: Constitutional: Denies chills Eyes: Eyes: Denies blurry vision ENT: Reports Normal hearing present Cardiovascular: Cardiovascular: Denies chest pain Respiratory: Respiratory: Denies cough Gastrointestinal: Gastrointestinal: Reports melena Genitourinary: Comments: suprapubic catheter Musculoskeletal: Musculoskeletal: Denies neck pain Integumentary/Breasts: Skin/Breast: Denies rash Neurologic: Reports Abnormal speech present Psychiatric: Psychiatric: Denies behavioral changes [facility] Past Medical History Medical History (Updated 06/18/23 @ 14:00 by Erik Valentino MD) Acute on chronic blood loss anemia Atrophy of left kidney Expressive aphasia Gastrojejunal ulcer with hemorrhage History of gastroscopy 08/18/09, 09/09/09, with structure Hypertension Iron (Fe) deficiency anemia Ischemic cerebrovascular accident (CVA) (08/14/20) Treated with tPA and thrombectomy Seizure disorder Urinary incontinence Vaginal delivery 1960, , full term, female, 7#10 1969, , full term, female, 7#10 Surgical History Surgical History (Updated 06/18/23 @ 16:11 by Ramya Johnson, BODYWORK THERAPIST) Chronic suprapubic catheter secondary to CVA H/O rectal polypectomy 11/13/08, 08/27/03 H/O right heart catheterization 12/17/08 unsure if lt or rt History of breast biopsy 06/09/10, stereotactic, biopsy rt breast History of cholecystectomy 05/09/09 History of endoscopy 12/16/09, 02/10/10, 08/25/10, 04/26/18 History of esophagogastroduodenoscopy (EGD) 04/25/12, with upper GI History of eye surgery 11/05/14 cataract right eye, 11/20/14 cataract left eye, 07/28/18 bilateral removal of scar tissue 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
[2023-06-19 19:09] LABS: Hemoglobin 9.7 g/dL (12.0-15.0)
[2023-06-19] MEDS: CEPHALEXIN 250 MG CAPSULE PO (20:12)
[2023-06-19] MEDS: PANTOPRAZOLE SODIUM IV 40 MG VIAL IV PUSH (20:14)
[2023-06-20] VITALS (13 sets, daily range): BP systolic 125–151; BP diastolic 71–83; PULSE 52–65; RESP 16–20; TEMP 36.3–36.7; O2SAT 95–100
[2023-06-20 06:42] LABS: Anion Gap 3 mmol/L (8-16); Blood Urea Nitrogen 19 mg/dL (7-17); Calcium 8.5 mg/dL (8.4-10.2); Carbon Dioxide 26 mmol/L (22-30); Chloride 108 mmol/L (98-107); Estimated CRCL calculation 27 ml/min; Estimated Glomerular Filt Rate 48; Glucose 90 mg/dL (65-110); Potassium 3.9 mmol/L (3.4-5.0); Sodium 137 mmol/L (137-145)
[2023-06-20 06:45] LABS: Hemoglobin 9.9 g/dL (12.0-15.0); Mean Corpuscular HGB Conc 31.9 g/dl (32-36); Mean Corpuscular Hemoglobin 27.5 pg (26-34); Mean Corpuscular Volume 86.1 fl (80-100); Mean Platelet Volume 10.6 fl (7.4-10.4); Platelet Count Result 162 k/mm3 (150-375); Red Cell Distribution Width 16.6 % (11.5-14.5); White Blood Count 4.5 K/mm3 (4.5-10.0)
--- NOTE | 2023-06-20 07:56 | PC.NURSE ---
To GI Lab per [ ], IV [18 L ac and 22 R wrist ]. Report given to [PORTER]. scheduled time at 1030
[2023-06-20] MEDS: levETIRAcetam 500 MG TABLET 1500 MG PO ×2 (08:01→20:21)
[2023-06-20] MEDS: carvediloL 12.5 MG TABLET PO ×2 (08:02→20:23)
[2023-06-20] MEDS: PANTOPRAZOLE SODIUM IV 40 MG VIAL IV PUSH ×2 (08:02→20:23)
[2023-06-20] MEDS: LACTATED RINGERS 1,000 ML 150 ML IV CONT (09:15)
--- NOTE | 2023-06-20 09:57 | WPDANESEPPF ---
Anes - Initial Pre Proc Eval Procedure: Operation Date: 06/20/23 16:00 Proposed Procedures p Esophagogastroduodenoscopy - Kevin Campbell MD Date/Time: 06/20/23 09:57 Surgeon: Ajit Miller MD Pre Op Diagnosis: Upper GI Bleed/Anemia Patient Data Age: 83 Gender: F Height: 1.55 m Weight: 50 kg Last Vital Signs Temp 97.6 F 06/20/23 09:12 Pulse 52 L 06/20/23 09:12 Resp 18 06/20/23 09:12 BP 151/82 H 06/20/23 09:12 Pulse Ox 95 06/20/23 09:12 O2 Del Method Room Air 06/20/23 09:12 Allergies Allergy/AdvReac Type Severity Reaction Status Date / Time naproxen Allergy Severe cardiac Verified 06/20/23 09:09 arrest NSAIDS (Non-Steroidal Allergy Severe cardiac Verified 06/20/23 09:09 Anti-Inflamma arrest morphine Allergy Mild unknown Verified 06/20/23 09:09 Home Medications Medication Instructions Recorded Confirmed Type misoprostol 200 mcg tablet 200 mcg PO DAILY 11/05/19 06/18/23 History atorvastatin 80 mg tablet 80 mg PO HS 08/29/20 06/18/23 History carvedilol 12.5 mg tablet (Coreg) 12.5 mg PO BID 05/11/22 06/18/23 History citalopram 20 mg tablet 20 mg PO DAILY 05/11/22 06/18/23 History levetiracetam 1,000 mg tablet 1,500 mg PO BID 05/11/22 06/18/23 History buspirone 15 mg tablet 15 mg PO TID 01/04/23 06/18/23 History pyridoxine (vitamin B6) 100 mg 100 mg PO DAILY 01/04/23 06/18/23 History tablet cephalexin 250 mg capsule 250 mg PO BID 01/31/23 06/18/23 History potassium bicarbonate-citric acid 25 meq PO BID 01/31/23 06/18/23 History 25 mEq effervescent tablet (Klor-Con/EF) ferrous sulfate 325 mg (65 mg 325 mg PO BID #60 tabs 05/20/23 06/18/23 Rx iron) tablet pantoprazole 40 mg tablet,delayed 40 mg PO BID #60 tabs 05/20/23 06/18/23 Rx release sucralfate 100 mg/mL oral 1,000 mg (10 mL) PO ACHS #1,000 mL 05/20/23 06/18/23 Rx suspension Laboratory Tests 06/19/23 06/20/23 19:03 06:08 WBC 4.5 K/mm3 (4.5-10.0) RBC 3.60 L M/mm3 (4.2-5.4) Hgb 9.7 L g/dL 9.9 L g/dL (12.0-15.0) (12.0-15.0) Hct 30.0 L % 31.0 L % (37.0-47.0) (37.0-47.0) MCV 86.1 fl (80-100) MCH 27.5 pg (26-34) MCHC 31.9 L g/dl (32-36) RDW 16.6 H % (11.5-14.5) Plt Count 162 k/mm3 (150-375) MPV 10.6 H fl (7.4-10.4) Sodium 137 mmol/L (137-145) Potassium 3.9 mmol/L (3.4-5.0) Chloride 108 H mmol/L (98-107) Carbon Dioxide 26 mmol/L (22-30) Anion Gap 3 L mmol/L (8-16) BUN 19 H mg/dL (7-17) Creatinine 1.10 H mg/dL (0.7-1.0) Estim Creat Clear Calc 27 ml/min Estimated GFR 48 L (59 - ) Glucose 90 mg/dL (65-110) Calcium 8.5 mg/dL (8.4-10.2) Patient hx anesthesia problems: none Family hx anesthesia problems: none Results Review: All pre-operative results and documents have been reviewed as part of the pre-operative evaluation. [facility] Past Medical History Medical History (Updated 06/18/23 @ 14:00 by Erik Valentino MD) Acute on chronic blood loss anemia Atrophy of left kidney Expressive aphasia Gastrojejunal ulcer with hemorrhage History of gastroscopy 08/18/09, 09/09/09, with structure Hypertension Iron (Fe) deficiency anemia Ischemic cerebrovascular accident (CVA) (08/14/20) Treated with tPA and thrombectomy Seizure disorder Urinary incontinence Vaginal delivery 1960, , full term, female, 7#10 1969, , full term, female, 7#10 Surgical History Surgical History (Updated 06/18/23 @ 16:11 by Ramya Johnson APRN) Chronic suprapubic catheter secondary to CVA H/O rectal polypectomy 11/13/08, 08/27/03 H/O right heart catheterization 12/17/08 unsure if lt or rt History of breast biopsy 06/09/10, stereotactic, biopsy rt breast History of cholecystectomy 05/09/09 History of endoscopy 12/16/09, 02/10/10, 08/25/10, 04/26/18 History of esophagogastroduodenoscopy (EGD) 04/25/12, with upper
[2023-06-20] MEDS: SUCRALFATE SUSP 100 MG/ML 10 ML UDC 1000 MG PO ×3 (11:00→20:22)
--- NOTE | 2023-06-20 14:46 | PC.NURSE ---
Returned from GI Lab. Report received from [Cheri ].
--- NOTE | 2023-06-20 16:06 | PM.IMPN ---
Progress Note: A&P Assessment and Plan (1) Acute upper gastrointestinal bleeding: Code(s): K92.2 - Gastrointestinal hemorrhage, unspecified Status: Acute Assessment and Plan: Hgb 7.2 -> 6.4 -> 9.4 -> 9.7 -> 9.9 - previously 9.4 on 05/23/23 - started on Protonix IV 40 mg BID started with 80 IVP bolus - continue sucralfate - transfused 2 units on 06/17, repeat CBC - anemia labs not drawn prior to transfusion - EGD (05/18/23): Esophagus examined and makers was normal with a normal Z-line, no ulcers or masses. No esophagitis Z line located at 39 cm from the incisors Evidence of prior gastric bypass with small gastric pouch, no obvious signs of gastritis or signs of active bleeding. Single benign ulcer measuring 8 mm was visualized at the JG anastomosis. Ulcer was clean based without signs of bleeding. No need for endoscopic intervention at that time. - EGD on 06/19 similar to EGD as above but ulcer measuring 7 mm. No active bleeding noted. - trend labs, monitor VS - GI recommending continuation of Protonix and Carafate as well as bariatric surgery revision. 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 (2) Anemia: Qualifiers: Anemia type: unspecified type Qualified Code(s): D64.9 - Anemia, unspecified Code(s): D64.9 - Anemia, unspecified Status: Acute Assessment and Plan: - currently acute/chronic, some underlying SHAMEKA but currently experiencing a suspected upper GI bleed given history - hemoglobin 7.2 on presentation - 2 units PRBC given on 06/17 - hold supplementation at present - trend blood counts - monitor vitals (3) Hypertension: Qualifiers: Hypertension type: primary hypertension Qualified Code(s): I10 - Essential (primary) hypertension Code(s): I10 - Essential (primary) hypertension Status: Acute Assessment and Plan: - chronic, currently 122/63 - continue home medications: Carvedilol 12.5 mg b.i.d. - monitor Subjective Date/time seen: 06/20/23 16:06 Interval history: Daughter is at bedside. Answered all of patient's and daughter's questions to the best my ability. Discussed findings of EGD with the patient and her daughter. Will advance patient's diet. If her hemoglobin continues to be stable and she tolerates food well plan on discharge tomorrow. Exam Narrative: GENERAL: Comfortable, no acute distress HENMT: moist mucous membranes EYES: EOM intact b/l NECK: no lymphadenopathy RESPIRATORY: clear to auscultation CARDIO: RRR GI: soft, nontender, bowel sounds present SKIN: no rashes EXTREMITIES: no edema, redness or tenderness Objective Data Vital Signs Vital Signs: Vital Signs - 24 hr 06/19/23 20:13 06/19/23 20:28 06/19/23 20:00 Temperature 97.9 F Pulse Rate 64 65 Respiratory Rate 18 Blood Pressure 130/78 Pulse Oximetry 99 Oxygen Delivery Room Air Oxygen Flow Rate 06/19/23 20:00 06/20/23 00:00 06/20/23 04:00 Temperature Pulse Rate 69 61 57 L Respiratory Rate Blood Pressure Pulse Oximetry Oxygen Delivery Oxygen Flow Rate 06/20/23 05:52 06/20/23 08:02 06/20/23 09:12 Temperature 97.3 F L 97.6 F Pulse Rate 61 58 L 52 L Respiratory Rate 18 18 Blood Pressure 150/83 H 151/82 H Pulse Oximetry 97 95 Oxygen Delivery Room Air Oxygen Flow Rate 06/20/23 08:00 06/20/23 10:16 06/20/23 10:26 Temperature Pulse Rate 56 L 58 L 60 Respiratory Rate 18 18 Blood Pressure 127/71 128/71 Pulse Oximetry 100 100 Oxygen Delivery Nasal Cannula Room Air Oxygen Flow Rate 3 06/20/23 10:36 06/20/23 12:00 06/20/23 14:00 Temperature 97.6 F Pulse Rate 60 63 57 L Respiratory Rate 19 16 Blood Pressure 125/81 144/77 H Pulse Oximetry 100 95 Oxygen Delivery Room Air Oxygen Flow Rate Intake/Output Intake/Output: Intake & Output 06/17/23 06/18/2306/18
[2023-06-20] MEDS: CEPHALEXIN 250 MG CAPSULE PO (20:22)
[2023-06-21 05:51] VITALS: BP 129/74; PULSE 63; RESP 17; TEMP 36.5; O2SAT 97
[2023-06-21] MEDS: SUCRALFATE SUSP 100 MG/ML 10 ML UDC 1000 MG PO ×2 (06:00→10:31)
[2023-06-21 06:55] LABS: Hematocrit 31.6 % (37.0-47.0); Hemoglobin 9.9 g/dL (12.0-15.0); Mean Corpuscular HGB Conc 31.3 g/dl (32-36); Mean Corpuscular Volume 86.3 fl (80-100); Platelet Count Result 176 k/mm3 (150-375); Red Blood Count 3.66 M/mm3 (4.2-5.4); Red Cell Distribution Width 16.7 % (11.5-14.5); White Blood Count 4.5 K/mm3 (4.5-10.0)
[2023-06-21 07:04] LABS: Anion Gap 1 mmol/L (8-16); Blood Urea Nitrogen 18 mg/dL (7-17); Calcium 8.6 mg/dL (8.4-10.2); Carbon Dioxide 26 mmol/L (22-30); Chloride 109 mmol/L (98-107); Estimated CRCL calculation 29 ml/min; Estimated Glomerular Filt Rate 53; Glucose 92 mg/dL (65-110); Potassium 3.8 mmol/L (3.4-5.0); Sodium 136 mmol/L (137-145)
[2023-06-21 08:00] VITALS: PULSE 66; O2SAT 97
[2023-06-21] MEDS: PANTOPRAZOLE SODIUM IV 40 MG VIAL IV PUSH (09:48)
[2023-06-21 09:49] VITALS: PULSE 66
[2023-06-21] MEDS: levETIRAcetam 500 MG TABLET 1500 MG PO (09:49)
[2023-06-21] MEDS: carvediloL 12.5 MG TABLET PO (09:49)
--- NOTE | 2023-06-21 12:18 | WPDGIPROGNO ---
Progress Note: A&P Assessment and Plan (1) Acute upper gastrointestinal bleeding: Code(s): K92.2 - Gastrointestinal hemorrhage, unspecified Status: Acute Assessment and Plan: no signs of active bleeding she has similar ulcer at GJ anastomosis, sequela after previous bariatric surgery continue with care home PPI twice daily consider to follow-up with bariatric surgeon given non healing ulcer ok to go home by gi standpoint (2) Acute on chronic blood loss anemia: Code(s): D62 - Acute posthemorrhagic anemia Status: Acute Assessment and Plan: h/h stable after transfusion she also has known chronic anemia will need iron supplement and probably hematology evaluation as outpatient (3) Gastrojejunal ulcer with hemorrhage: Code(s): K28.4 - Chronic or unspecified gastrojejunal ulcer with hemorrhage Status: Acute (4) Chronic suprapubic catheter: Code(s): Z93.59 - Other cystostomy status Status: Acute (5) Ischemic cerebrovascular accident (CVA): Onset Date: 08/14/20 Code(s): I63.9 - Cerebral infarction, unspecified Status: Acute Subjective Date/time seen: 06/21/23 12:18 Interval history: she is comfortable egd found chronic non bleeding ulcer at GJ anastomosis Review of Systems Review of Systems: All systems reviewed & are unremarkable except as noted in HPI and below Exam Const: General: comfortable HENMT: Face/Nose/Sinus: Normal nares present Mouth: Yes dry mucous membranes Eyes: General: appearance normal, both eyes and all related structures Sclera: sclerae normal Neck: Neck: supple Resp: Effort & Inspection: normal respiratory effort Auscultation: clear to auscultation bilaterally Cardio: Rate: regular rate Rhythm: regular rhythm GI: GI Palp: Yes Soft to palpation and No Guarding due to palpation present (GI) Auscultation: normal bowel sounds Other: suprapubic catheter in place Urinary Catheter: Urinary Catheter: patent and draining and other (suprapubic) Skin: General skin exam: no rashes or lesions noted Neuro: Motor exam (neuro): 5/5 motor strength present throughout Sensory Exam: normal sensation Other: +expressive aphasia Extrem: General: normal to inspection Psych: Mental Status: mental status grossly normal Affect: normal affect Other: Good insight and judgment, pleasant Objective Data Vital Signs Vital Signs: Vital Signs - 24 hr 06/20/23 14:00 06/20/23 20:09 06/20/23 20:23 Temperature 97.6 F 98.1 F Pulse Rate 57 L 64 65 Respiratory Rate 16 20 Blood Pressure 144/77 H 135/73 Pulse Oximetry 95 96 Oxygen Delivery 06/20/23 20:00 06/21/23 05:51 06/21/23 09:49 Temperature 97.7 F Pulse Rate 63 66 Respiratory Rate 17 Blood Pressure 129/74 Pulse Oximetry 97 Oxygen Delivery Room Air 06/21/23 08:00 Temperature Pulse Rate 66 Respiratory Rate Blood Pressure Pulse Oximetry 97 Oxygen Delivery Room Air Intake/Output Intake/Output: Intake & Output 06/18/23 06/19/23 06/20/23 06/21/23 23:59 23:59 23:59 23:59 Intake Total 350 1400 1210 240 Output Total 2500 2706 0955 Balance 279 -0105 -1615 -835 Meds/Results Medications: Active Medications Generic Name Dose Route Start Last Admin Trade Name Freq PRN Reason Stop Dose Admin Carvedilol 12.5 mg 06/18/23 21:00 06/21/23 09:49 Carvedilol 12.5 Mg Tablet PO 12.5 mg Q12HR MADY Administration Cephalexin HCl 250 mg 06/19/23 21:00 06/20/23 20:22 Cephalexin 250 Mg Capsule PO 250 mg HS MADY Administration Levetiracetam 1,500 mg 06/18/23 21:00 06/21/23 09:49 Levetiracetam 500 Mg Tablet PO 1,500 mg Q12HR MADY Administration Ondansetron HCl 4 mg 06/18/23 13:52 Ondansetron Inj 4 Mg/2 Ml Vial IV PUSH Q4H PRN Nausea Pantoprazole Sodium 40 mg 06/19/23 21:00 06/21/23 09:48 Pantoprazole Sodium Iv 40 Mg Vial IV PUSH 40 mg Q12HR MADY Administration
--- NOTE | 2023-06-21 12:29 | PM.DS ---
DS: Admitting Diagnosis Discharge Date 06/21/23 Admitting Diagnosis Anemia DS: Discharge Diagnosis Discharge Diagnosis (1) Acute upper gastrointestinal bleeding: Code(s): K92.2 - Gastrointestinal hemorrhage, unspecified Status: Acute (2) Anemia: Qualifiers: Anemia type: unspecified type Qualified Code(s): D64.9 - Anemia, unspecified Code(s): D64.9 - Anemia, unspecified Status: Acute (3) Hypertension: Qualifiers: Hypertension type: primary hypertension Qualified Code(s): I10 - Essential (primary) hypertension Code(s): I10 - Essential (primary) hypertension Status: Acute DS: Summary Hospital Course Hospital Course: this is an 83-year-old female with past medical history of acute on chronic anemia, CVA with residual expressive aphasia, chronic GGO ulcer with hemorrhage, hypertension, IgA, urinary incontinence and seizure disorder that presents to the hospital due to passing 3 bloody stools at home. Patient describes her stools as dark and black. She was recently seen in the hospital due to abdominal comfort and was found to be anemic and required 2 units of PRBCs. An EGD done on 05/18/2023 revealed an 8 mm ulcer at the GJ and a stenosis without active bleeding. When patient arrived to the hospital she was found have a hemoglobin hematocrit 6.4/21.5. She received 2 units of PRBCs during this admission. She was admitted here for another GI consult and EGD. Patient underwent EGD on 06/20/2023 that did not show any acute change from previous EGD. GI recommending patient continue with Protonix twice daily and Carafate, iron supplement and follow up with a bariatric surgeon. 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 also consider Hematology evaluation due to chronic anemia. Patient's hemoglobin stabilized during hospital stay. She tolerated her diet well. Also educated patient that iron can make stool dark as well. Her labs and vital signs were stable and she is medically clear for discharge at this time. Time Spent with Patient Time attestation: Total time spent providing and/or coordinating discharge services: Exam Narrative: GENERAL: Comfortable, no acute distress HENMT: moist mucous membranes EYES: EOM intact b/l NECK: no lymphadenopathy RESPIRATORY: clear to auscultation CARDIO: RRR GI: soft, nontender, bowel sounds present SKIN: no rashes EXTREMITIES: no edema, redness or tenderness DS: Data Data Completed and Pending Labs on day of discharge: Labs from last 24 hours 06/21/23 06:32 WBC 4.5 RBC 3.66 L Hgb 9.9 L Hct 31.6 L MCV 86.3 MCH 27.0 MCHC 31.3 L RDW 16.7 H Plt Count 176 MPV 11.0 H Sodium 136 L Potassium 3.8 Chloride 109 H Carbon Dioxide 26 Anion Gap 1 L BUN 18 H Creatinine 1.00 Estim Creat Clear Calc 29 Estimated GFR 53 L Glucose 92 Calcium 8.6 Discharge Plan Discharge Attending physician on discharge: Kelli Paz Consulting providers: Kevin Campbell Discharging Clinician: Elisa Thomas Patient Disposition: Home, Self-Care Activity: as tolerated Diet: regular Discharge Instructions: Discharge disposition: Take medications as prescribed Advise iron supplementation as an outpatient. To help with constipation can take MiraLax or Colace tablet as needed. Please take Vitamin C with iron supplement Do not take Iron supplement with milk Monitor blood pressures Avoid social areas, you wear a mask when in social settings Encouraged to continue with yearly vaccinations Return to the emergency department if he developed sudden shortness of breath, chest pain, dizziness, loss of consciousness, nausea, vomiting, upset stomach or intractable diarrhea Return to the emergency department if you develop fever greater than 100.4
== END 2023-06-21 13:33 | disposition home or self-care (01) | DRG 378 ==
LOC: ANHED 14:00 → ANH3MEDSUR 14:23
PROVIDERS: Internal Medicine Gastroenterology; Student in an Organized Health Care Education/Training Program; Admitting Provider Internal Medicine; Emergency Provider Emergency Medicine; PCP Internal Medicine Gastroenterology; Visit Provider Internal Medicine Critical Care Medicine
PROC: 0DJ08ZZ Inspection of Upper Intestinal Tract, Via Natural or Artificial Opening Endoscopic (ICD-10-PCS; CPT 43235; principal; 2023-06-20 16:00)
DX: K92.2 Gastrointestinal hemorrhage, unspecified (principal); D62 Acute posthemorrhagic anemia; K91.2 Postsurgical malabsorption, not elsewhere classified; K28.7 Chronic gastrojejunal ulcer without hemorrhage or perforation; D50.9 Iron deficiency anemia, unspecified; I10 Essential (primary) hypertension; G40.909 Epilepsy, unspecified, not intractable, without status epilepticus; Z96.653 Presence of artificial knee joint, bilateral; I69.320 Aphasia following cerebral infarction; Z79.82 Long term (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; Z98.84 Bariatric surgery status; Z87.11 Personal history of peptic ulcer disease; Z98.1 Arthrodesis status; Z93.59 Other cystostomy status
CPT/HCPCS: 36415; 36430; 80048; 80053; 85014; 85018; 85025; 85027; 85610; 85730; 86850; 86900; 86901; 86923; 96374; 96375; 99285; A9270; C9113; G0378; J2704; J7040; J7050; J7120; P9016

== ENCOUNTER 2023-06-29 09:25 | Outpatient (CLI) | payer MEDICARE, OTHER, SELFPAY ==
--- NOTE | ~2023-06-29 | MM_ITS ---
EXAMINATION: MM screening [place] [facility] w christofer HISTORY: Screening mammogram TECHNIQUE: Craniocaudal and mediolateral oblique 3-D tomosynthesis images were obtained and synthetic 2-D images were generated. CAD analysis was submitted and interpreted. COMPARISON: 02/24/2022 diagnostic right mammogram and complete right breast ultrasound examination, r eported negative 12/16/2021, 12/05/2020 bilateral screening mammogram examinations BREAST PARENCHYMAL COMPOSITION: The breasts are extremely dense, which lowers the sensitivity of mamm ography. FINDINGS: Electronic monitor device overlies the left breast. Biopsy marker on the right; history of prior benign right breast biopsy. Scattered bilateral benign calcifications including bilateral arterial calcifications. There is no ev idence of suspicious mass, calcification, or architectural distortion to suggest malignancy in either breast. There has been no suspicious interval change. IMPRESSION: 1. No mammographic evidence of malignancy. 2. Recommend routine screening mammography in one year. BI-RADS Category 2: Benign finding(s). Reviewed, dictated and finalized at location A.
== END 2023-06-29 09:26 | disposition home or self-care (01) ==
LOC: ANHIMG 09:32
PROVIDERS: PCP Internal Medicine Gastroenterology; Visit Provider Internal Medicine Gastroenterology
DX: Z12.31 Encounter for screening mammogram for malignant neoplasm of breast (principal)
CPT/HCPCS: 77063; 77067

== ENCOUNTER 2023-07-04 12:58 | Emergency (ER) | payer MEDICARE, OTHER, SELFPAY ==
--- NOTE | ~2023-07-04 | CT_ITS ---
EXAMINATION: CT abdomen pelvis w con DATE: 07/04/2023 18:51 INDICATION: LOWER ABD PAIN, DARK BLOODY STOOLS TECHNIQUE: Computed tomography (CT) of the abdomen and pelvis was performed with 100 mL Omnipaque-350 intravenous contrast. Automated exposure control and iterative reconstruction technique were employe d. The dose-length product was 172.52 mGy-cm. COMPARISON: 04/09/2023; CTA abdomen pelvis 05/17/2023 . FINDINGS: Lower thorax: Cardiomegaly. Left lower lobe granuloma/hamartoma. Liver: Normal. Biliary/Gallbladder: Gallbladder is absent. Mild extrahepatic duct dilation probably normal for age a nd status post cholecystectomy. Pancreas: Stable pancreatic cyst. Spleen: Normal. Adrenals:Normal. Kidneys: Severely atrophic left kidney. Right cortical scarring. Multiple right simple cysts and hypo densities that are too small to characterize. Punctate right nonobstructing calcification. No hydrone phrosis. GI tract: Status post Marlee-en-Y. No small or large bowel dilation. Appendix not confidently visualize d. Diverticulosis without diverticulitis. Mesentery/Peritoneum: No ascites, mass, or free air. Retroperitoneum: No mass. Atherosclerotic abdominal aortic and/or arterial calcifications. Pelvis: Suprapubic catheter, in good position. Absent uterus. Ovaries not confidently visualized.. Soft Tissues: Soft tissues and body wall unremarkable. Bones: No acute osseous finding. Uncomplicated lumbar fusion hardware. IMPRESSION: No acute abdominopelvic process detected. Reviewed, dictated and finalized at location K.
[2023-07-04 13:44] VITALS: BP 111/72; PULSE 80; RESP 18; TEMP 36.8; O2SAT 99
--- NOTE | 2023-07-04 16:13 | ED.GIBLEED ---
HPI - GI Bleed General Chief complaint: GI Bleed <HOLLEY Ochoa Last Filed: 07/04/23 16:18> Stated complaint: bloody stool <HOLLEY Ochoa Last Filed: 07/04/23 16:18> Time Seen by Provider: 07/04/23 16:13 <HOLLEY Ochoa Last Filed: 07/04/23 16:18> Focused HPI: Patient is an 83 y/o female, with PMH of CVA with aphasia, suprapubic catheter, who presents to the ED with c/o melanotic stools. Patient reports she had an episode of dark brown tarry stool today. States it was very dark with some bright red blood mixed. Also c/o lower abdominal pain. Denies N/V, fevers, urinary trouble, hematuria. She is not on any blood thinners. GENERAL: Elderly, thin, and in no acute distress. HEAD: Normocephalic, atraumatic. CHEST: Clear to auscultation. ?No respiratory distress. HEART: Regular rate and rhythm.? ABD: Mild tenderness in suprapubic region, normoactive BS. NEURO: ?Alert and oriented x3. Aphasia. Patient screened in triage and initial orders placed.? ?Additional care and disposition to be based upon?diagnostic testing and treatment. <HOLLEY Ochoa Last Filed: 07/04/23 16:18> Source: patient <HOLLEY Ochoa Last Filed: 07/04/23 16:18> Mode of arrival: ambulatory <HOLLEY Ochoa Last Filed: 07/04/23 16:18> Limitations: no limitations <HOLLEY Ochoa Last Filed: 07/04/23 16:18> History of Present Illness HPI Narrative: 83-year-old with a history of gastric ulcer status post gastric bypass several years ago here with a complaint of black color stool on and off for past several weeks. Patient was recently admitted to the hospital and was evaluated by GI doctor. She caused some complaints of left lower abdominal pain since this morning. She denies any nausea or vomiting <Chino Harmon MD - Last Filed: 07/04/23 18:59> MD complaint: melena <Chino Harmon MD - Last Filed: 07/04/23 18:59> Onset (ago): week(s) <Chino Harmon MD - Last Filed: 07/04/23 18:59> Pain Consistency: intermittent <Chino Harmon MD - Last Filed: 07/04/23 18:59> Severity: moderate <Chino Harmon MD - Last Filed: 07/04/23 18:59> Relieving factors: none <Chino Harmon MD - Last Filed: 07/04/23 18:59> Context: history of GI bleed <Chino Harmon MD - Last Filed: 07/04/23 18:59> Associated symptoms: abdominal pain <Chino Harmon MD - Last Filed: 07/04/23 18:59> Related Data Home medications: Home Medications Medication Instructions Recorded Confirmed misoprostol 200 mcg tablet 200 mcg PO DAILY 11/05/19 06/18/23 atorvastatin 80 mg tablet 80 mg PO HS 08/29/20 06/18/23 carvedilol 12.5 mg tablet (Coreg) 12.5 mg PO BID 05/11/22 06/18/23 citalopram 20 mg tablet 20 mg PO DAILY 05/11/22 06/18/23 levetiracetam 1,000 mg tablet 1,500 mg PO BID 05/11/22 06/18/23 buspirone 15 mg tablet 15 mg PO TID 01/04/23 06/18/23 pyridoxine (vitamin B6) 100 mg 100 mg PO DAILY 01/04/23 06/18/23 tablet cephalexin 250 mg capsule 250 mg PO BID 01/31/23 06/18/23 potassium bicarbonate-citric acid 25 meq PO BID 01/31/23 06/18/23 25 mEq effervescent tablet (Klor-Con/EF) <Cheri Krishnamurthy PA-C - Last Filed: 07/04/23 16:18> Allergies/Adverse reactions: Allergies Allergy/AdvReac Type Severity Reaction Status Date / Time naproxen Allergy Severe cardiac Verified 07/04/23 13:46 arrest NSAIDS (Non-Steroidal Allergy Severe cardiac Verified 07/04/23 13:46 Anti-Inflamma arrest morphine Allergy Mild unknown Verified 07/04/23 13:46 <Cheri Krishnamurthy PA-C - Last Filed: 07/04/23 16:18> Review of Systems Review of Systems: All systems reviewed & are unremarkable except as noted in HPI and below <Chino Harmon MD - Last Filed: 07/04/23 18:59> Constitutional: Constitutional: Reports no additional constitutional complaints <Chino Harmon MD - Last Filed: 07/04/23
[2023-07-04 16:33] LABS: Basophils Percent Auto 0.8 % (0.2-1.2); Eosinophils Absolute Auto 0.1 K/mm3 (0-0.3); Eosinophils Percent Auto 1.3 % (0-4.4); Hematocrit 30.5 % (37.0-47.0); Hemoglobin 9.5 g/dL (12.0-15.0); Immature Granulocyte Absolute 0.02 K/mm3 (0.00-0.031); Immature Granulocyte Percent A 0.4 % (0-0.5); Lymphocytes Absolute Auto 1.56 K/mm3 (0.9-3.2); Lymphocytes Percent Auto 29.8 % (18.3-44.2); Mean Corpuscular HGB Conc 31.1 g/dl (32-36); Mean Corpuscular Hemoglobin 27.1 pg (26-34); Mean Corpuscular Volume 86.9 fl (80-100); Mean Platelet Volume 10.8 fl (7.4-10.4); Monocytes Absolute Auto 0.4 K/mm3 (0.1-0.6); Monocytes Percent Auto 7.1 % (2.6-8.5); Neutrophils Absolute Auto 3.2 K/mm3 (1.3-6.7); Neutrophils Percent Auto 60.6 % (45.5-73.1); Platelet Count Result 258 k/mm3 (150-375); Red Blood Count 3.51 M/mm3 (4.2-5.4); Red Cell Distribution Width 16.8 % (11.5-14.5); White Blood Count 5.2 K/mm3 (4.5-10.0)
[2023-07-04 16:41] LABS: Alanine Aminotransferase 25 U/L (6-35); Albumin Level 3.9 g/dL (3.5-5.1); Alkaline Phosphatase 72 U/L (38-126); Anion Gap 3 mmol/L (4-12); Aspartate Amino Transferase 21 U/L (14-36); Bilirubin,Total 0.4 mg/dL (0.2-1.3); Blood Urea Nitrogen 54 mg/dL (7-17); Calcium 8.9 mg/dL (8.4-10.2); Carbon Dioxide 27 mmol/L (22-30); Chloride 106 mmol/L (98-107); Estimated CRCL calculation 26 ml/min; Estimated Glomerular Filt Rate 48; Glucose 122 mg/dL (65-110); Potassium 4.6 mmol/L (3.4-5.0); Sodium 136 mmol/L (137-145)
[2023-07-04 16:46] LABS: INR 1.1; Partial Thromboplastin Time 27.4 Seconds (22.3-36.8); Prothrombin Time 14.8 Seconds (11.1-14.7)
[2023-07-04 17:48] VITALS: BP 145/78; PULSE 71; RESP 20; O2SAT 100
[2023-07-04] MEDS: PANTOPRAZOLE SODIUM IV 40 MG VIAL IV PUSH (17:52)
[2023-07-04] MEDS: SODIUM CHLORIDE 0.9% IV 1,000 ML 999 ML IV CONT (18:31)
[2023-07-04 18:54] VITALS: BP 151/73; PULSE 65; RESP 20
[2023-07-04 19:43] LABS: Appearance Urine Clear (Clear); Bacteria Urine 4+ /hpf; Bilirubin Urine Negative (Negative); Blood Urine 1+ (Negative); Color Urine Yellow (Yellow); Glucose Urine UA Negative (Negative); Ketones Urine Negative (Negative); Leukocyte Esterase Ur 2+ LEU/UL (Negative); Need Manual Microscopic Reviewed; Nitrate Urine Positive (Negative); Non Pathogenic Casts 0-2; Protein Urine Negative (Negative); RBC Urine 0-2 /hpf (0-2); Squamous Epithelial Cell Urine None Seen /hpf (Few); Urobilinogen Urine 0.2 mg/dL (<2.0); WBC Urine 21-50 /hpf (0-3); pH Urine 6.5 (5.0-9.0)
[2023-07-04 19:44] LABS: Specific Grav Ur 1.041 (1.001-1.035)
[2023-07-04 19:45] LABS: Add Urine Microscopic? YES
[2023-07-04 19:56] VITALS: BP 145/90; PULSE 74; RESP 20; O2SAT 100
== END 2023-07-04 19:57 | disposition home or self-care (01) ==
PROVIDERS: Physician Assistant; Emergency Provider Emergency Medicine; PCP Internal Medicine Gastroenterology
DX: N39.0 Urinary tract infection, site not specified (principal); K92.1 Melena; I10 Essential (primary) hypertension; D64.9 Anemia, unspecified; G40.909 Epilepsy, unspecified, not intractable, without status epilepticus
CPT/HCPCS: 36415; 74177; 80053; 81001; 85025; 85610; 85730; 86850; 86900; 86901; 87077; 87086; 87088; 87186; 96361; 96374; 99284; C9113; J7030; Q9967

== ENCOUNTER 2023-07-05 11:29 | Observation (INO) | payer MEDICARE, OTHER, SELFPAY ==
[2023-07-05] VITALS (11 sets, daily range): BP systolic 109–146; BP diastolic 52–89; PULSE 63–87; RESP 14–18; TEMP 36.2–36.9; O2SAT 98–100; BMI 18.5
--- NOTE | ~2023-07-05 | CT_ITS ---
EXAMINATION: CTA abdomen pelvis DATE: 07/05/2023 14:36 INDICATION: Abdominal pain. Blood in stool. TECHNIQUE: Computed tomographic angiography (CTA) of the abdomen and pelvis was performed with 100 mL Omnipaque-350 intravenous contrast. Automated exposure control and iterative reconstruction techniqu e were employed. The dose-length product was 231.11 mGy-cm. Maximum intensity projection 3D-reconstru ctions of the aorta and other arteries were constructed by the technologist on a separate workstation . COMPARISON: CT abdomen and pelvis 07/04/2023, 09/30/20 FINDINGS: The visualized portions of the lung bases demonstrate mild atelectasis. A calcified left jesus ng nodule and calcified left hilar lymph nodes are consistent with old radial metaphysis disease. No pleural effusion. Cardiomegaly is noted. There are coronary artery calcifications. No pericardial eff usion. There is a small sliding hiatal hernia. There are surgical changes in the stomach. The liver i s normal. There are changes of cholecystectomy. Calcifications in the spleen are consistent with old granulomatous disease. There is a 2.4 cm cystic lesion in the pancreas, stable from 09/30/20, likely b enign. The adrenal glands are normal. There is mild atrophy of right kidney and severe atrophy of lef t kidney. There are cysts in right kidney measuring up to 11 mm . A suprapubic catheter is seen. Ther e are no dilated loops of bowel. The appendix is not visualized. Aortic atherosclerosis is noted. The re is no significant stenosis of celiac axis, superior mesenteric artery, right renal artery, or infe rior mesenteric artery. There are changes of anterior and posterior fusion procedures in lumbar spine . There is severe thoracic and lumbar spondylosis. IMPRESSION: 1. No etiology for the patient's symptoms. Reviewed, dictated and finalized at location A.
--- NOTE | ~2023-07-05 | XR_ITS ---
EXAMINATION: XR chest 1V portable DATE: 07/05/2023 14:54 INDICATION: Chest pain. TECHNIQUE: A single frontal view of the chest was obtained. COMPARISON: Chest one view 05/19/2023 FINDINGS: Calcified left lung nodules and calcified left hilar lymph nodes are consistent with old gr anulomatous disease. No pleural effusion or pneumothorax. Cardiomegaly is noted. There is electronic implant overlying left chest. There are surgical clips in the abdomen. IMPRESSION: 1. Cardiomegaly. Reviewed, dictated and finalized at location A. IMPRESSION: 1. Cardiomegaly.
--- NOTE | ~2023-07-05 | XR_ITS ---
Portable chest x-ray Comparison: 05/19/2023 Clinical History: Shortness of breath Findings: Lungs are clear, without focal consolidation or pleural effusion. Cardiomediastinal silho uette is stable, with loop recorder. Bones and soft tissues are unremarkable. Impression: Clear lungs. Reviewed, dictated and finalized at location . Impression: Clear lungs.
--- NOTE | 2023-07-05 11:38 | ECG_ITS ---
Measurements Intervals [place] Rate: 64 P: 53 CT: 166 QRS: 60 QRSD: 84 T: 134 QT: 414 QTc: 427 Interpretive Statements SINUS RHYTHM BASELIEN ARTIFACT LEFT VENTRICULAR HYPERTROPHY AND ST-T CHANGE [VOLTAGE CRITERIA PLUS ST/T ABNORMALITY] COMPARED TO ECG 05/17/2023 17:25:50 NO SIGNIFICANT CHANGES Electronically Signed On 07-05-2023 12:38:24 CDT by Lorena Willis M.D.
[2023-07-05 11:53] LABS: Basophils Percent Auto 0.4 % (0.2-1.2); Eosinophils Percent Auto 0.4 % (0-4.4); Immature Granulocyte Absolute 0.03 K/mm3 (0.00-0.031); Immature Granulocyte Percent A 0.5 % (0-0.5); Lymphocytes Absolute Auto 0.89 K/mm3 (0.9-3.2); Lymphocytes Percent Auto 16.3 % (18.3-44.2); Mean Corpuscular HGB Conc 30.9 g/dl (32-36); Mean Corpuscular Hemoglobin 27.4 pg (26-34); Mean Corpuscular Volume 88.7 fl (80-100); Mean Platelet Volume 11.6 fl (7.4-10.4); Monocytes Absolute Auto 0.2 K/mm3 (0.1-0.6); Monocytes Percent Auto 4.4 % (2.6-8.5); Neutrophils Absolute Auto 4.3 K/mm3 (1.3-6.7); Platelet Count Result 193 k/mm3 (150-375); Red Cell Distribution Width 17.2 % (11.5-14.5); White Blood Count 5.5 K/mm3 (4.5-10.0)
[2023-07-05 11:55] LABS: Hematocrit 20.4 % (37.0-47.0); Hemoglobin 6.3 g/dL (12.0-15.0)
[2023-07-05 12:03] LABS: INR 1.2
[2023-07-05 12:09] LABS: Alanine Aminotransferase 21 U/L (6-35); Albumin Level 3.1 g/dL (3.5-5.1); Alkaline Phosphatase 57 U/L (38-126); Anion Gap 5 mmol/L (4-12); Aspartate Amino Transferase 20 U/L (14-36); Bilirubin,Total 0.2 mg/dL (0.2-1.3); Blood Urea Nitrogen 58 mg/dL (7-17); Calcium 8.6 mg/dL (8.4-10.2); Carbon Dioxide 21 mmol/L (22-30); Chloride 110 mmol/L (98-107); Estimated CRCL calculation 28 ml/min; Estimated Glomerular Filt Rate 48; Glucose 125 mg/dL (65-110); Potassium 4.7 mmol/L (3.4-5.0); Sodium 136 mmol/L (137-145)
--- NOTE | 2023-07-05 13:42 | ED.GIBLEED ---
HPI - GI Bleed General Chief complaint: GI Bleed Stated complaint: GI bleed Time Seen by Provider: 07/05/23 13:14 Source: patient and family (daughter) Limitations: other (some expressive aphasia s/p CVA) History of Present Illness HPI Narrative: Patient is an 83-year-old female who presents with complaints of epigastric abdominal pain and bloody stools. daughter presents with a picture on her phone of the bloody stool from today. She was complaining of some abdominal cramping earlier. Of note patient was seen for similar yesterday. She was signed out to the oncoming evening physician and discharged home in stable condition as she reported she was feeling better CT imaging is otherwise negative. Of note this is her 5th episode in several months. She previously saw GI specialist Prosper Barakat in [place]. History of ulcer and history of gastric bypass. patient denies chest pain when asked multiple times however she keeps saying - my heart. She does have a history of expressive aphasia after a stroke approximately 3 years ago which does limit history. she questionably has a loop recorder or some other device the family does not believe it is a pacemaker defibrillator. Related Data Home Medications Medication Instructions Recorded Confirmed misoprostol 200 mcg tablet 200 mcg PO DAILY 11/05/19 07/05/23 atorvastatin 80 mg tablet 80 mg PO HS 08/29/20 07/05/23 carvedilol 12.5 mg tablet (Coreg) 12.5 mg PO BID 05/11/22 07/05/23 citalopram 20 mg tablet 20 mg PO DAILY 05/11/22 07/05/23 levetiracetam 1,000 mg tablet 1,500 mg PO BID 05/11/22 07/05/23 buspirone 15 mg tablet 15 mg PO TID 01/04/23 07/05/23 pyridoxine (vitamin B6) 100 mg 100 mg PO DAILY 01/04/23 07/05/23 tablet cephalexin 250 mg capsule 250 mg PO BID 01/31/23 07/05/23 potassium bicarbonate-citric acid 25 meq PO BID 01/31/23 07/05/23 25 mEq effervescent tablet (Klor-Con/EF) Allergies Allergy/AdvReac Type Severity Reaction Status Date / Time naproxen Allergy Severe cardiac Verified 07/05/23 18:14 arrest NSAIDS (Non-Steroidal Allergy Severe cardiac Verified 07/05/23 18:14 Anti-Inflamma arrest morphine Allergy Mild unknown Verified 07/05/23 18:14 [facility] Past Medical History Medical History (Updated 07/06/23 @ 10:54 by Jess Lazcano MD) Atrophy of left kidney Expressive aphasia Gastrojejunal ulcer with hemorrhage History of gastroscopy 08/18/09, 09/09/09, with structure Hypertension Iron (Fe) deficiency anemia Ischemic cerebrovascular accident (CVA) (08/14/20) Treated with tPA and thrombectomy Seizure disorder Urinary incontinence Vaginal delivery 1960, , full term, female, 7#10 1969, , full term, female, 7#10 Surgical History Surgical History (Updated 07/05/23 @ 18:08 by Alicia Hernandez PA-C) H/O rectal polypectomy 11/13/08, 08/27/03 H/O right heart catheterization 12/17/08 unsure if lt or rt History of breast biopsy 06/09/10, stereotactic, biopsy rt breast History of cholecystectomy 05/09/09 History of endoscopy 12/16/09, 02/10/10, 08/25/10, 04/26/18 History of esophagogastroduodenoscopy (EGD) 04/25/12, with upper GI History of eye surgery 11/05/14 cataract right eye, 11/20/14 cataract left eye, 07/28/18 bilateral removal of scar tissue 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ing MARCUS L4-5, L3-4, Doscectomy/fusion lt iliac crest graft 10/12/01 cervical discectomy and fusion of c6-7 History of spinal surgery 02/10/16 lumbar decompressive laminectomy
[2023-07-05 14:54] LABS: Troponin I < 0.012 ng/mL (0.000-0.034)
--- NOTE | 2023-07-05 15:36 | PC.NURSE ---
PRBC infusion initiated. Pt POA signed consent. Pt & POA voice understanding.
[2023-07-05] MEDS: SODIUM CHLORIDE 0.9% IV 250 ML 30 ML IV CONT (15:41)
[2023-07-05 15:55] LABS: Lactic Acid Reflex 1.5 mmol/L (0.7-2.0)
[2023-07-05] MEDS: PANTOPRAZOLE SODIUM IV 40 MG VIAL 80 MG IV PUSH (16:15)
--- NOTE | 2023-07-05 16:49 | PC.NURSE ---
Pt assisted to bedpan. voided without difficulty
--- NOTE | 2023-07-05 17:12 | PC.NURSE ---
Pt transfusion completed. Tolerated well without any S/S of reaction.
--- NOTE | 2023-07-05 17:43 | PC.NURSE ---
Pt arrived to ER with supra-pubic catheter intact with stone plug. Pt & family states she drains independently when she feels the need to void
--- NOTE | 2023-07-05 17:59 | ADMGEN ---
This patient, Nicole Patricia, was admitted to Medical Room 340-01. Patient/family oriented to hospital policies and general routines including ID bracelet, bed and alarms, visiting hours, pain management, procedures, bathroom and other care routines, personal items, smoking policy, room service/diet, and visiting hours. Information on how to activate the Rapid Response Team has been discussed. Patient/Family are encouraged to report perceived risks to care and to ask questions if they do not understand what they are told or what they should do.
--- NOTE | 2023-07-05 18:07 | PM.IMHP ---
H&P: HPI History of Present Illness Date/Time: 07/05/23 18:50 Chief Complaint: Abdominal pain and bloody stools. Narrative: This is a very pleasant 83-year-old female status post Johny-en-Y in January 2009 with history of recurrent GI bleeding related to chronic ulcer at the GJ anastomosis, hypertension, hyperlipidemia, seizure disorder, chronic kidney disease, and iron deficiency anemia who presented to the emergency department from home for evaluation of abdominal pain and bloody stools. She is able to provide a fairly good history however suffers from mild expressive aphasia and some of the following is supplemented via a review of her EMR. She has been admitted to the hospital several times under similar circumstances over the past year and most recently she was admitted on 06/18/2023 with GI bleeding and anemia. EGD per Dr. 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 She was started on Protonix and Carafate and it was felt that she would benefit from seeing her bariatric surgeon for possible revision. Unfortunately that surgeon has since moved to [place]. In any event, she started passing dark tarry stools yesterday associated with diffuse lower abdominal discomfort and she was seen in the ED for the symptoms last night. Her hemoglobin was stable at that time and CT scan did not show any acute process. She was able to be discharged with instructions to follow-up with GI. She was given a prescription for suspected urinary tract infection as well. Several hours after returning home she once again developed diffuse abdominal cramping and passed four large dark tarry stools and she returned. In the ED: She was afebrile on arrival and her blood pressures have been stable. Labs were significant for hemoglobin 6.3, BUN 58, creatinine 1.10, lactic acid 1.5, total protein 5.0, albumin 3.1. CTA of the abdomen and pelvis showed no etiology for the patient's symptoms. She was given 80 mg IV pantoprazole and is being admitted in this setting for blood transfusion. Review of Systems Review of Systems: 12 systems were reviewed and are negative except for as per HPI. [facility] Past Medical History Medical History (Updated 07/05/23 @ 18:08 by Alicia Hernandez PA-C) Atrophy of left kidney Expressive aphasia Gastrojejunal ulcer with hemorrhage History of gastroscopy 08/18/09, 6/8/10, with structure Hypertension Iron (Fe) deficiency anemia Ischemic cerebrovascular accident (CVA) (08/14/20) Treated with tPA and thrombectomy Seizure disorder Urinary incontinence Vaginal delivery 1960, , full term, female, 7#10 1969, , full term, female, 7#10 Surgical History Surgical History (Updated 07/05/23 @ 18:08 by Alicia Hernandez PAJaidenC) H/O rectal polypectomy 11/13/08, 08/27/03 H/O right heart catheterization 12/17/08 unsure if lt or rt History of breast biopsy 06/09/10, stereotactic, biopsy rt breast History of cholecystectomy 05/09/09 History of endoscopy 12/16/09, 02/10/10, 08/25/10, 04/26/18 History of esophagogastroduodenoscopy (EGD) 04/25/12, with upper GI History of eye surgery 11/05/14 cataract right eye, 11/20/14 cataract left eye, 07/28/18 bilateral removal of scar tissue 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ing MARCUS L4-5, L3-4, Doscectomy/fusion lt iliac crest graft 10/12/01 cervical discectomy and fusion of c6-7 History of spinal surgery 02/10/16 lumbar decompressive laminectomy, transformal lumbar interbody fusion with
[2023-07-05] MEDS: levETIRAcetam 500 MG TABLET 1500 MG PO (20:55)
[2023-07-05] MEDS: ATORVASTATIN 40 MG TABLET 80 MG PO (20:55)
[2023-07-05] MEDS: busPIRone HCL 5 MG TABLET 15 MG PO (20:55)
[2023-07-05] MEDS: PANTOPRAZOLE SODIUM IV 40 MG VIAL IV PUSH (20:56)
[2023-07-05] MEDS: SUCRALFATE SUSP 100 MG/ML 10 ML UDC 1000 MG PO (20:56)
[2023-07-06] VITALS (21 sets, daily range): BP systolic 112–155; BP diastolic 57–82; PULSE 60–89; RESP 16–20; TEMP 36.3–37; O2SAT 98–100; BMI 18.4
[2023-07-06] MEDS: SUCRALFATE SUSP 100 MG/ML 10 ML UDC 1000 MG PO ×4 (05:30→20:22)
[2023-07-06 05:37] LABS: Hemoglobin 7.3 g/dL (12.0-15.0); Mean Corpuscular HGB Conc 31.7 g/dl (32-36); Mean Corpuscular Hemoglobin 28.2 pg (26-34); Mean Corpuscular Volume 88.8 fl (80-100); Mean Platelet Volume 10.6 fl (7.4-10.4); Platelet Count Result 154 k/mm3 (150-375); Red Blood Count 2.59 M/mm3 (4.2-5.4); Red Cell Distribution Width 16.5 % (11.5-14.5)
[2023-07-06 05:53] LABS: Anion Gap 2 mmol/L (4-12); Blood Urea Nitrogen 40 mg/dL (7-17); Calcium 8.6 mg/dL (8.4-10.2); Carbon Dioxide 23 mmol/L (22-30); Chloride 112 mmol/L (98-107); Estimated CRCL calculation 25 ml/min; Estimated Glomerular Filt Rate 43; Glucose 98 mg/dL (65-110); Magnesium 1.9 mg/dL (1.6-2.3); Potassium 3.9 mmol/L (3.4-5.0); Sodium 137 mmol/L (137-145)
[2023-07-06] MEDS: CITALOPRAM HYDROBROMIDE 20 MG TABLET PO (08:45)
[2023-07-06] MEDS: miSOPROStol 200 MCG TABLET PO (08:45)
[2023-07-06] MEDS: PYRIDOXINE HCL 50 MG TABLET 100 MG PO (08:45)
[2023-07-06] MEDS: levETIRAcetam 500 MG TABLET 1500 MG PO ×2 (08:45→17:31)
[2023-07-06] MEDS: busPIRone HCL 5 MG TABLET 15 MG PO ×3 (08:45→17:30)
[2023-07-06] MEDS: FERROUS SULFATE 325 MG TABLET DR PO ×2 (08:45→17:31)
[2023-07-06] MEDS: PANTOPRAZOLE SODIUM IV 40 MG VIAL IV PUSH ×2 (08:46→20:22)
[2023-07-06] MEDS: CEPHALEXIN 250 MG CAPSULE PO ×2 (08:46→17:31)
[2023-07-06] MEDS: POTASSIUM BICARBONATE 25 MEQ TABEF PO ×2 (08:46→17:31)
[2023-07-06] MEDS: carvediloL 12.5 MG TABLET PO ×2 (08:47→17:31)
--- NOTE | 2023-07-06 13:35 | PM.IMPN ---
Progress Note: A&P Assessment and Plan (1) Acute blood loss anemia: Code(s): D62 - Acute posthemorrhagic anemia Status: Acute (2) GI bleed: Code(s): K92.2 - Gastrointestinal hemorrhage, unspecified Status: Acute (3) History of stroke: Code(s): Z86.73 - Personal history of transient ischemic attack (TIA), and cerebral infarction without residual deficits Status: Acute (4) Seizure disorder: Code(s): G40.909 - Epilepsy, unspecified, not intractable, without status epilepticus Status: Acute Plan The patient presented to the emergency department for evaluation of abdominal pain and bloody stools as detailed in HPI Labs, imaging, EKG, and all reports were personally reviewed. Unfortunately this is been an ongoing issue for her. Once again she has acute on chronic anemia which is in part due to malabsorption however worsened due to presumed intermittent but ongoing occult bleeding from chronic ulcer at GJ anastomosis noted on recent EGD. She and will be transfused to a stable hemoglobin. Continue Protonix and Carafate. Trial full liquid diet. She needs to be referred to a local bariatric surgeon for follow-up and possible revision and ideally we would speak with one directly prior to discharge so she may see them in follow-up expeditiously. Hb is 7 this am ok to tranfuse await GI assessment ? EGD in am. 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 She is able to provide a fairly good history however suffers from mild expressive aphasia and some of the following is supplemented via a review of her EMR. She has been admitted to the hospital several times under similar circumstances over the past year and most recently she was admitted on 06/18/2023 with GI bleeding and anemia. EGD per Dr. 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 She was started on Protonix and Carafate and it was felt that she would benefit from seeing her bariatric surgeon for possible revision. Unfortunately that surgeon has since moved to [place]. In any event, she started passing dark tarry stools yesterday associated with diffuse lower abdominal discomfort and she was seen in the ED for the symptoms last night.? hb is low today at 7 ok to tranfuse blood and stabilise ? egd in am pt is on clear diet presently Review of Systems Review of Systems: no specific complaints Exam Narrative: General:?elderly lady Respiratory:?Lungs are clear to auscultation bilaterally. Cardiovascular:??Regular rate and rhythm with S1-S2. Gastrointestinal:??Abdomen is soft and nondistended with positive bowel sounds. Mild tenderness to palpation, mainly throughout the lower abdomen. No guarding or rebound tenderness. Genitourinary:?Catheter draining clear yellow urine. Skin:??Warm and dry. Generalized pallor. Extremities:??No cyanosis, clubbing, or edema. Radial and pedal pulses intact. Neurological:??Alert.? Cranial nerves 2-12 are grossly intact. Has expressive aphasia. No gross focal deficits to casual conversation. Psychiatric:??Pleasant and cooperative with appropriate mood and affect. Objective Data Vital Signs Vital Signs: Vital Signs - 24 hr 07/05/23 15:27 07/05/23 15:44 07/05/23 15:45 Temperature 36.9 C 36.9 C 36.9 C Pulse Rate 73 69 69 Respiratory Rate 18 18 18 Blood Pressure 122/64 137/69 137/69 Pulse Oximetry 100 100 100 Oxygen Delivery 07/05/23 16:45 07/05/23 17:03 07/05/23 17:30 Temperature 36.8 C 36.8 C 36.8 C Pulse Rate 75 87 66 Respiratory Rate 18 18 18 Blood
[2023-07-06] MEDS: SODIUM CHLORIDE 0.9% IV 250 ML 30 ML IV CONT (13:58)
[2023-07-06] MEDS: FUROSEMIDE INJ 40 MG/4 ML VIAL 20 MG IV PUSH (18:01)
--- NOTE | 2023-07-06 18:56 | WPDGICN ---
Assessment and Plan Assessment and plan (1) Acute upper gastrointestinal bleeding: Code(s): K92.2 - Gastrointestinal hemorrhage, unspecified Status: Acute Assessment and Plan: recurrent bleeding iv protonix bid will do another EGD tomorrow, this was discussed again with family. They understand that we have limited options, she has non healing ulcer at GJ anastomosis, recommend surgical evaluation but at same time she has too many comorbidities and family think that she is too weak anyway to withstand surgery. (2) Acute on chronic blood loss anemia: Code(s): D62 - Acute posthemorrhagic anemia Status: Acute Assessment and Plan: keep hgb >7 iv protonix egd in am (3) Gastrojejunal ulcer with hemorrhage: Code(s): K28.4 - Chronic or unspecified gastrojejunal ulcer with hemorrhage Status: Acute (4) History of gastric bypass: Code(s): Z98.84 - Bariatric surgery status Status: Acute (5) Expressive aphasia: Code(s): R47.01 - Aphasia Status: Acute Assessment and Plan: difficult to communicate more confused than usual per family GI Consult Note Consult date/time: 07/06/23 18:56 Reason for consult: melena, symptomatic anemia, known ulcer at GJ anastomosis HPI: Nicole Patricia is a 83 year old female with history of a stroke with expressive aphasia (thrombectomy and TPA, 2020), chronic anemia, and bladder retention now with suprapubic catheter.? She is well known to me because recurrent GIB. She has a history of Johny-en-Y gastric bypass in 2008 as bariatric procedure since she had GI issues including recurrent GI bleeding that has required transfusions multiple times.? EGD on 02/01/[address] Vazquez that showed a proximal jejunal ulcer that was cauterized and epinephrine was injected. Recurrent admission with GIB and had more EGD's 05/2023 and 06/2023 with GJ ulcer at anastomosis, did not require intervention (clear ulcer without stigmata of active bleeding).? This time again with dark stools and generalized weakness, hgb down to 6.3 (baseline 9), s/p transfusion. CTA abdomen no acute findings. Several family members at bedside, she has expressive aphasia but more confused than usual. Review of Systems Constitutional: Constitutional: Denies chills Eyes: Eyes: Denies blurry vision ENT: Reports Normal hearing present Cardiovascular: Cardiovascular: Denies chest pain Respiratory: Respiratory: Denies cough Gastrointestinal: Gastrointestinal: Reports melena Genitourinary: Comments: suprapubic catheter Musculoskeletal: Musculoskeletal: Denies neck pain Integumentary/Breasts: Skin/Breast: Denies rash Neurologic: Reports Abnormal speech present Psychiatric: Psychiatric: Reports confusion PMFSH Past Medical History Medical History (Updated 07/06/23 @ 10:54 by Jess Lazcano MD) Atrophy of left kidney Expressive aphasia Gastrojejunal ulcer with hemorrhage History of gastroscopy 08/18/09, 09/09/09, with structure Hypertension Iron (Fe) deficiency anemia Ischemic cerebrovascular accident (CVA) (08/14/20) Treated with tPA and thrombectomy Seizure disorder Urinary incontinence Vaginal delivery 1960, , full term, female, 7#10 1970, , full term, female, 7#10 Surgical History Surgical History (Updated 07/05/23 @ 18:08 by FABIO FieldsC) H/O rectal polypectomy 11/13/08, 08/27/03 H/O right heart catheterization 12/17/08 unsure if lt or rt History of breast biopsy 06/09/10, stereotactic, biopsy rt breast History of cholecystectomy 05/09/09 History of endoscopy 12/16/09, 02/10/10, 08/25/10, 04/26/18 History of esophagogastroduodenoscopy (EGD) 04/25/12, with upper GI History of eye surgery 11/05/14 cataract right eye, 11/20/14 cataract left eye, 07/28/18 bilateral removal of scar tissue 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-y History of hysterectomy 07/1982 total History of knee replacement
[2023-07-06] MEDS: ATORVASTATIN 40 MG TABLET 80 MG PO (20:22)
[2023-07-07] VITALS (18 sets, daily range): BP systolic 102–168; BP diastolic 52–83; PULSE 57–76; RESP 16–24; TEMP 36.5–36.7; O2SAT 96–100
[2023-07-07] MEDS: SUCRALFATE SUSP 100 MG/ML 10 ML UDC 1000 MG PO ×3 (05:48→20:06)
[2023-07-07 06:00] LABS: Hematocrit 28.3 % (37.0-47.0); Hemoglobin 9.2 g/dL (12.0-15.0); Mean Corpuscular HGB Conc 32.5 g/dl (32-36); Mean Corpuscular Hemoglobin 28.3 pg (26-34); Mean Corpuscular Volume 87.1 fl (80-100); Mean Platelet Volume 10.8 fl (7.4-10.4); Platelet Count Result 172 k/mm3 (150-375); Red Blood Count 3.25 M/mm3 (4.2-5.4); White Blood Count 4.5 K/mm3 (4.5-10.0)
[2023-07-07 06:19] LABS: Anion Gap 2 mmol/L (4-12); Blood Urea Nitrogen 24 mg/dL (7-17); Calcium 8.5 mg/dL (8.4-10.2); Carbon Dioxide 26 mmol/L (22-30); Chloride 107 mmol/L (98-107); Estimated CRCL calculation 25 ml/min; Estimated Glomerular Filt Rate 43; Glucose 90 mg/dL (65-110); Potassium 3.9 mmol/L (3.4-5.0); Sodium 135 mmol/L (137-145)
[2023-07-07] MEDS: POTASSIUM BICARBONATE 25 MEQ TABEF PO ×2 (09:50→16:27)
[2023-07-07] MEDS: miSOPROStol 200 MCG TABLET PO (09:50)
[2023-07-07] MEDS: busPIRone HCL 5 MG TABLET 15 MG PO ×3 (09:51→16:28)
[2023-07-07] MEDS: CITALOPRAM HYDROBROMIDE 20 MG TABLET PO (09:51)
[2023-07-07] MEDS: PANTOPRAZOLE SODIUM IV 40 MG VIAL IV PUSH ×2 (09:51→20:06)
[2023-07-07] MEDS: levETIRAcetam 500 MG TABLET 1500 MG PO ×2 (09:51→16:28)
[2023-07-07] MEDS: CEPHALEXIN 250 MG CAPSULE PO ×2 (09:51→16:27)
[2023-07-07] MEDS: PYRIDOXINE HCL 50 MG TABLET 100 MG PO (09:51)
[2023-07-07] MEDS: carvediloL 12.5 MG TABLET PO ×2 (09:52→16:27)
--- NOTE | 2023-07-07 12:32 | PM.IMPN ---
Progress Note: A&P Assessment and Plan (1) Acute blood loss anemia: Code(s): D62 - Acute posthemorrhagic anemia Status: Acute (2) GI bleed: Code(s): K92.2 - Gastrointestinal hemorrhage, unspecified Status: Acute (3) History of stroke: Code(s): Z86.73 - Personal history of transient ischemic attack (TIA), and cerebral infarction without residual deficits Status: Acute (4) Seizure disorder: Code(s): G40.909 - Epilepsy, unspecified, not intractable, without status epilepticus Status: Acute Plan The patient presented to the emergency department for evaluation of abdominal pain and bloody stools as detailed in HPI Labs, imaging, EKG, and all reports were personally reviewed. Unfortunately this is been an ongoing issue for her. Once again she has acute on chronic anemia which is in part due to malabsorption however worsened due to presumed intermittent but ongoing occult bleeding from chronic ulcer at GJ anastomosis noted on recent EGD. She and will be transfused to a stable hemoglobin. Continue Protonix and Carafate. Trial full liquid diet. She needs to be referred to a local bariatric surgeon for follow-up and possible revision and ideally we would speak with one directly prior to discharge so she may see them in follow-up expeditiously. 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 She is able to provide a fairly good history however suffers from mild expressive aphasia and some of the following is supplemented via a review of her EMR. She has been admitted to the hospital several times under similar circumstances over the past year and most recently she was admitted on 06/18/2023 with GI bleeding and anemia. EGD per Dr. 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 She was started on Protonix and Carafate and it was felt that she would benefit from seeing her bariatric surgeon for possible revision. Unfortunately that surgeon has since moved to [place]. In any event, she started passing dark tarry stools yesterday associated with diffuse lower abdominal discomfort and she was seen in the ED for the symptoms last night.? 4/3 hb is low today at 7 ok to tranfuse blood and stabilise ? 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 Pt was SOb after tranfusion needed IV lasix not SOB mentioned today Review of Systems Review of Systems: No concerns Exam Narrative: General:?elderly lady Respiratory:?Lungs are clear to auscultation bilaterally. Cardiovascular:??Regular rate and rhythm with S1-S2. Gastrointestinal:??Abdomen is soft and nondistended with positive bowel sounds. Mild tenderness to palpation, mainly throughout the lower abdomen. No guarding or rebound tenderness. Genitourinary:?Catheter draining clear yellow urine. Skin:??Warm and dry. Generalized pallor. Extremities:??No cyanosis, clubbing, or edema. Radial and pedal pulses intact. Neurological:??Alert.? Cranial nerves 2-12 are grossly intact. Has expressive aphasia. No gross focal deficits to casual conversation. Psychiatric:??Pleasant and cooperative with appropriate mood and affect. Objective Data Vital Signs Vital Signs: Vital Signs - 24 hr 07/06/23 14:03 07/06/23 14:20 07/06/23 14:00 Temperature 36.8 C 36.6 C 36.8 C Pulse Rate 76 69 76 Respiratory Rate 17 16 17 Blood Pressure 134/57 L 125/58 L 134/57 L Pulse Oximetry 100
[2023-07-07] MEDS: LACTATED RINGERS 1,000 ML 150 ML IV CONT (14:11)
--- NOTE | 2023-07-07 14:16 | WPDANESEPPF ---
Anes - Initial Pre Proc Eval Procedure: Operation Date: 07/07/23 15:00 Proposed Procedures p Esophagogastroduodenoscopy - Kevin Campbell MD Date/Time: 07/07/23 14:16 Surgeon: Yola Wright MD Pre Op Diagnosis: GI bleed Patient Data Age: 83 Gender: F Height: 1.63 m Weight: 48.8 kg Last Vital Signs Temp 36.5 C 07/07/23 13:16 Pulse 59 L 07/07/23 13:16 Resp 18 07/07/23 13:16 BP 115/62 07/07/23 13:16 Pulse Ox 100 07/07/23 13:16 O2 Del Method Room Air 07/07/23 08:00 Allergies Allergy/AdvReac Type Severity Reaction Status Date / Time naproxen Allergy Severe cardiac Verified 07/05/23 18:14 arrest NSAIDS (Non-Steroidal Allergy Severe cardiac Verified 07/05/23 18:14 Anti-Inflamma arrest morphine Allergy Mild unknown Verified 07/05/23 18:14 Home Medications Medication Instructions Recorded Confirmed Type misoprostol 200 mcg tablet 200 mcg PO DAILY 11/05/19 07/05/23 History atorvastatin 80 mg tablet 80 mg PO HS 08/29/20 07/05/23 History carvedilol 12.5 mg tablet (Coreg) 12.5 mg PO BID 05/11/22 07/05/23 History citalopram 20 mg tablet 20 mg PO DAILY 05/11/22 07/05/23 History levetiracetam 1,000 mg tablet 1,500 mg PO BID 05/11/22 07/05/23 History buspirone 15 mg tablet 15 mg PO TID 01/04/23 07/05/23 History pyridoxine (vitamin B6) 100 mg 100 mg PO DAILY 01/04/23 07/05/23 History tablet cephalexin 250 mg capsule 250 mg PO BID 01/31/23 07/05/23 History potassium bicarbonate-citric acid 25 meq PO BID 01/31/23 07/05/23 History 25 mEq effervescent tablet (Klor-Con/EF) ferrous sulfate 325 mg (65 mg 325 mg PO BID #60 tabs 05/20/23 07/05/23 Rx iron) tablet pantoprazole 40 mg tablet,delayed 40 mg PO BID #60 tabs 05/20/23 07/05/23 Rx release sucralfate 100 mg/mL oral 1,000 mg (10 mL) PO ACHS #1,000 mL 05/20/23 07/05/23 Rx suspension Laboratory Tests 07/06/23 07/07/23 12:09 05:18 WBC 4.5 K/mm3 (4.5-10.0) RBC 3.25 L M/mm3 (4.2-5.4) Hgb 9.2 L g/dL (12.0-15.0) Hct 28.3 L % (37.0-47.0) MCV 87.1 fl (80-100) MCH 28.3 pg (26-34) MCHC 32.5 g/dl (32-36) RDW 16.0 H % (11.5-14.5) Plt Count 172 k/mm3 (150-375) MPV 10.8 H fl (7.4-10.4) Sodium 135 L mmol/L (137-145) Potassium 3.9 mmol/L (3.4-5.0) Chloride 107 mmol/L (98-107) Carbon Dioxide 26 mmol/L (22-30) Anion Gap 2 L mmol/L (4-12) BUN 24 H D mg/dL (7-17) Creatinine 1.20 H mg/dL (0.7-1.0) Estim Creat Clear Calc 25 ml/min Estimated GFR 43 L (59 - ) Glucose 90 mg/dL (65-110) Calcium 8.5 mg/dL (8.4-10.2) Crossmatch See Detail Patient hx anesthesia problems: none Family hx anesthesia problems: none Results Review: All pre-operative results and documents have been reviewed as part of the pre-operative evaluation. [facility] Past Medical History Medical History (Updated 07/06/23 @ 10:54 by Jess Lazcano MD) Atrophy of left kidney Expressive aphasia Gastrojejunal ulcer with hemorrhage History of gastroscopy 08/18/09, 09/09/09, with structure Hypertension Iron (Fe) deficiency anemia Ischemic cerebrovascular accident (CVA) (08/14/20) Treated with tPA and thrombectomy Seizure disorder Urinary incontinence Vaginal delivery 1960, , full term, female, 7#10 1970, , full term, female, 7#10 Surgical History Surgical History (Updated 07/05/23 @ 18:08 by Alicia Hernandez PA-C) H/O rectal polypectomy 11/13/08, 08/27/03 H/O right heart catheterization 12/17/08 unsure if lt or rt History of breast biopsy 06/09/10, stereotactic, biopsy rt breast History of cholecystectomy 05/09/09 History of endoscopy 12/16/09, 02/10/10, 08/25/10, 04/26/18 History of esophagogastroduodenoscopy (EGD) 04/25/12, with upper GI History of eye surgery 11/05/14 cataract right eye, 11/20/14 cataract left eye, 07/28/18 bilatera
[2023-07-07] MEDS: FERROUS SULFATE 325 MG TABLET DR PO (16:27)
[2023-07-07] MEDS: ATORVASTATIN 40 MG TABLET 80 MG PO (20:06)
[2023-07-08] VITALS (13 sets, daily range): BP systolic 97–168; BP diastolic 61–76; PULSE 60–83; RESP 16–18; TEMP 36.5–36.8; O2SAT 96–100
[2023-07-08] MEDS: SUCRALFATE SUSP 100 MG/ML 10 ML UDC 1000 MG PO ×4 (06:13→20:09)
--- NOTE | 2023-07-08 08:13 | WPDANESPN ---
Anes - Prog Note Post-Op Date/Time: 07/08/23 08:13 Cardiovascular status: normal Respiratory status: normal Airway patency: baseline Mental status: baseline Post-Op hydration status: normal Vital Signs: Last Vital Signs Temp 36.5 C 07/08/23 06:00 Pulse 63 07/08/23 06:00 Resp 18 07/08/23 06:00 BP 128/72 07/08/23 06:00 Pulse Ox 97 07/08/23 06:00 O2 Del Method Room Air 07/07/23 21:05 Pain Score (VAS): Patient asleep, no nonverbal signs of pain present at this time. I/O: Intake & Output 07/07/23 07/08/23 07/08/23 23:59 07:59 15:59 Intake Total 480 Output Total 500 950 Balance -20 -950 Laboratory Tests 07/07/23 05:18 07/07/23 05:18 Post-procedural complaints: none Patient Feedback: Patient satisfied with anesthetic care.
[2023-07-08] MEDS: levETIRAcetam 500 MG TABLET 1500 MG PO ×2 (08:48→17:16)
[2023-07-08] MEDS: busPIRone HCL 5 MG TABLET 15 MG PO ×3 (08:49→17:16)
[2023-07-08] MEDS: PYRIDOXINE HCL 50 MG TABLET 100 MG PO (08:49)
[2023-07-08] MEDS: miSOPROStol 200 MCG TABLET PO (08:50)
[2023-07-08] MEDS: CITALOPRAM HYDROBROMIDE 20 MG TABLET PO (08:50)
[2023-07-08] MEDS: FERROUS SULFATE 325 MG TABLET DR PO ×2 (08:50→17:15)
[2023-07-08] MEDS: carvediloL 12.5 MG TABLET PO ×2 (08:50→17:15)
[2023-07-08] MEDS: PANTOPRAZOLE SODIUM IV 40 MG VIAL IV PUSH (08:52)
[2023-07-08] MEDS: POTASSIUM BICARBONATE 25 MEQ TABEF PO ×2 (08:52→17:15)
[2023-07-08] MEDS: CEPHALEXIN 250 MG CAPSULE PO ×2 (08:56→17:15)
--- NOTE | 2023-07-08 14:38 | PM.IMPN ---
Progress Note: A&P Assessment and Plan (1) Acute blood loss anemia: Code(s): D62 - Acute posthemorrhagic anemia Status: Acute (2) GI bleed: Code(s): K92.2 - Gastrointestinal hemorrhage, unspecified Status: Acute (3) History of stroke: Code(s): Z86.73 - Personal history of transient ischemic attack (TIA), and cerebral infarction without residual deficits Status: Acute (4) Seizure disorder: Code(s): G40.909 - Epilepsy, unspecified, not intractable, without status epilepticus Status: Acute Plan The patient presented to the emergency department for evaluation of abdominal pain and bloody stools that started a day prior to admission with associated diffuse abdominal discomfort in the lower abdomen. Her hemoglobin was stable CT scan did show any acute process was discharged however returned back to the ER several hours later with recurrence of diffuse abdominal cramping and passing 4 large dark tarry stool. . 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 Hypertension hyperlipidemia seizure disorder chronic kidney disease iron deficiency anemia. She has underlying mild expressive aphasia which is baseline. Previous EGD showed a chronic ulcer at GJ anastomosis from prior gastric bypass. She had been on for his and Carafate. Rules felt to benefit from seeing her bariatric surgeon for possible revision. Unfortunately that surgeon is since moved to [place]. She had acute on chronic anemia needing transfusion. Underwent EGD 07/07/2023 with previous gastric surgery with intestinal ulcer. Two deep ulcers measuring 5-10 mm were visual GJ anastomosis. Flat spot noted on. The ulcer was cauterized with gold probe. Jejunal limb otherwise normal with no active signs of bleeding. She will continue on Protonix and Carafate. On full liquid diet. Advancement of diet per GI. Will check H pylori H&H remained stable. 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 She is able to provide a fairly good history however suffers from mild expressive aphasia and some of the following is supplemented via a review of her EMR. She has been admitted to the hospital several times under similar circumstances over the past year and most recently she was admitted on 06/18/2023 with GI bleeding and anemia. EGD per Dr. 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 She was started on Protonix and Carafate and it was felt that she would benefit from seeing her bariatric surgeon for possible revision. Unfortunately that surgeon has since moved to [place]. Review of Systems Review of Systems: All systems reviewed & are unremarkable except as noted in HPI and below Exam Narrative: General:?elderly lady not in acute distress Respiratory:?Lungs are clear to auscultation bilaterally. No respiratory distress Cardiovascular:??Regular rate and rhythm with S1-S2. Gastrointestinal:??Abdomen is soft and nondistended with positive bowel sounds. Mild tenderness to palpation, mainly throughout the lower abdomen. No guarding or rebound tenderness. Genitourinary:?Catheter draining clear yellow urine. Suprapubic catheter in place Skin:??Warm and dry. Generalized pallor. Extremities:??No cyanosis, clubbing, or edema. Radial and pedal pulses intact. Neurological:??Alert.? Cranial nerves 2-12 are grossly intact. Has expressive aphasia. No gross focal deficits to casual conversation. Psychiatric:??Pleasant a bit anxious Objective Data Vital Signs
[2023-07-08 15:18] LABS: Basophils Absolute Auto 0.1 K/mm3 (0.0-0.1); Basophils Percent Auto 0.8 % (0.2-1.2); Eosinophils Absolute Auto 0.2 K/mm3 (0-0.3); Eosinophils Percent Auto 2.6 % (0-4.4); Hemoglobin 9.6 g/dL (12.0-15.0); Immature Granulocyte Absolute 0.01 K/mm3 (0.00-0.031); Immature Granulocyte Percent A 0.2 % (0-0.5); Lymphocytes Absolute Auto 1.23 K/mm3 (0.9-3.2); Lymphocytes Percent Auto 18.7 % (18.3-44.2); Mean Corpuscular Hemoglobin 28.8 pg (26-34); Mean Corpuscular Volume 90.1 fl (80-100); Mean Platelet Volume 11.2 fl (7.4-10.4); Monocytes Absolute Auto 0.7 K/mm3 (0.1-0.6); Monocytes Percent Auto 9.9 % (2.6-8.5); Neutrophils Absolute Auto 4.5 K/mm3 (1.3-6.7); Neutrophils Percent Auto 67.8 % (45.5-73.1); Platelet Count Result 183 k/mm3 (150-375); Red Blood Count 3.33 M/mm3 (4.2-5.4); Red Cell Distribution Width 15.9 % (11.5-14.5); White Blood Count 6.6 K/mm3 (4.5-10.0)
[2023-07-08 15:33] LABS: Alanine Aminotransferase 28 U/L (6-35); Albumin Level 3.2 g/dL (3.5-5.1); Alkaline Phosphatase 68 U/L (38-126); Anion Gap 4 mmol/L (4-12); Aspartate Amino Transferase 24 U/L (14-36); Bilirubin,Total 0.4 mg/dL (0.2-1.3); Blood Urea Nitrogen 16 mg/dL (7-17); Calcium 8.3 mg/dL (8.4-10.2); Carbon Dioxide 22 mmol/L (22-30); Chloride 107 mmol/L (98-107); Estimated CRCL calculation 31 ml/min; Estimated Glomerular Filt Rate 53; Glucose 97 mg/dL (65-110); Potassium 4.2 mmol/L (3.4-5.0); Sodium 133 mmol/L (137-145)
[2023-07-08 15:38] LABS: Magnesium 1.9 mg/dL (1.6-2.3)
--- NOTE | 2023-07-08 16:51 | WPDGIPROGNO ---
Progress Note: A&P Assessment and Plan (1) Acute on chronic blood loss anemia: Code(s): D62 - Acute posthemorrhagic anemia Status: Acute Assessment and Plan: from non-healing ulcer at GJ anastomosis this time used gold probe continue with protonix bid will need to see bariatric surgery at some point (2) Acute upper gastrointestinal bleeding: Code(s): K92.2 - Gastrointestinal hemorrhage, unspecified Status: Acute Assessment and Plan: resolved (3) Gastrojejunal ulcer with hemorrhage: Code(s): K28.4 - Chronic or unspecified gastrojejunal ulcer with hemorrhage Status: Acute (4) Chronic suprapubic catheter: Code(s): Z93.59 - Other cystostomy status Status: Acute (5) Expressive aphasia: Code(s): R47.01 - Aphasia Status: Acute (6) History of gastric bypass: Code(s): Z98.84 - Bariatric surgery status Status: Acute Subjective Date/time seen: 07/08/23 16:51 Interval history: egd yesterday with gold probe of ulcer at GJ anastomosis (no obvious bleeding, found flat spot) no more sign of bleeding and she is comfortable today Review of Systems Review of Systems: All systems reviewed & are unremarkable except as noted in HPI and below Exam Const: Other: elderly, chronically ill appearing HENMT: Face/Nose/Sinus: Normal nares present Eyes: General: appearance normal, both eyes and all related structures Sclera: sclerae normal Neck: Neck: supple Resp: Effort & Inspection: normal respiratory effort Auscultation: clear to auscultation bilaterally Cardio: Rate: regular rate Rhythm: regular rhythm GI: GI Palp: Yes Soft to palpation and No Guarding due to palpation present (GI) Auscultation: normal bowel sounds Other: suprapubic catheter in place Urinary Catheter: Urinary Catheter: patent and draining and other (suprapubic) Skin: General skin exam: no rashes or lesions noted Neuro: Motor exam (neuro): 5/5 motor strength present throughout Other: +expressive aphasia Extrem: General: normal to inspection Psych: Affect: Anxious affect present Other: Good insight and judgment, pleasant Objective Data Vital Signs Vital Signs: Vital Signs - 24 hr 07/07/23 17:05 07/07/23 20:00 07/07/23 20:00 Temperature 98.1 F Pulse Rate 62 60 Respiratory Rate 16 Blood Pressure 165/83 H Pulse Oximetry 100 Oxygen Delivery Room Air 07/07/23 21:05 07/07/23 21:46 07/07/23 20:00 Temperature 97.8 F Pulse Rate 60 63 Respiratory Rate 18 Blood Pressure 141/75 H 158/71 H Pulse Oximetry 96 97 Oxygen Delivery Room Air 07/07/23 21:59 07/07/23 21:59 07/08/23 00:00 Temperature Pulse Rate 71 70 64 Respiratory Rate Blood Pressure 144/80 H 150/70 H Pulse Oximetry Oxygen Delivery 07/08/23 04:00 07/08/23 06:00 07/08/23 08:50 Temperature 97.7 F Pulse Rate 63 63 72 Respiratory Rate 18 Blood Pressure 128/72 Pulse Oximetry 97 Oxygen Delivery 07/08/23 08:50 07/08/23 15:15 Temperature 98.2 F Pulse Rate 65 Respiratory Rate 16 Blood Pressure 168/76 H Pulse Oximetry 100 Oxygen Delivery Room Air Intake/Output Intake/Output: Intake & Output 07/05/23 07/06/23 07/07/23 07/08/23 23:59 23:59 23:59 23:59 Intake Total 850 990 822.5 600 Output Total 1325 3050 950 Balance 850 -515 -2227.5 -350 Meds/Results Medications: Active Medications Generic Name Dose Route Start Last Admin Trade Name Freq PRN Reason Stop Dose Admin Acetaminophen 650 mg 07/05/23 16:40 Acetaminophen 325 Mg Tablet PO Q4H PRN Mild Pain (1-3) or Fever Atorvastatin Calcium 80 mg 07/05/23 21:00 07/07/23 20:06 Atorvastatin 40 Mg Tablet PO 80 mg HS MADY Administration Buspirone HCl 15 mg 07/05/23 19:35 07/08/23 12:06 Buspirone Hcl 5 Mg Tablet PO 15 mg TID MADY Administration Carvedilol 12.5 mg 07/06/23 09:00 07/08/23 08:50 Carv
[2023-07-08] MEDS: PANTOPRAZOLE 40 MG TABLET PO (20:09)
[2023-07-08] MEDS: ATORVASTATIN 40 MG TABLET 80 MG PO (20:09)
[2023-07-09] VITALS (9 sets, daily range): BP systolic 113–142; BP diastolic 60–80; PULSE 59–74; RESP 14–16; TEMP 36.4–36.7; O2SAT 96–98
[2023-07-09 05:00] LABS: Basophils Percent Auto 0.5 % (0.2-1.2); Eosinophils Absolute Auto 0.2 K/mm3 (0-0.3); Eosinophils Percent Auto 4.1 % (0-4.4); Hematocrit 29.4 % (37.0-47.0); Hemoglobin 9.5 g/dL (12.0-15.0); Immature Granulocyte Absolute 0.02 K/mm3 (0.00-0.031); Immature Granulocyte Percent A 0.4 % (0-0.5); Lymphocytes Absolute Auto 1.28 K/mm3 (0.9-3.2); Lymphocytes Percent Auto 22.8 % (18.3-44.2); Mean Corpuscular HGB Conc 32.3 g/dl (32-36); Mean Corpuscular Volume 89.6 fl (80-100); Mean Platelet Volume 10.8 fl (7.4-10.4); Monocytes Absolute Auto 0.6 K/mm3 (0.1-0.6); Neutrophils Absolute Auto 3.5 K/mm3 (1.3-6.7); Neutrophils Percent Auto 62.2 % (45.5-73.1); Platelet Count Result 197 k/mm3 (150-375); Red Blood Count 3.28 M/mm3 (4.2-5.4); Red Cell Distribution Width 15.9 % (11.5-14.5); White Blood Count 5.6 K/mm3 (4.5-10.0)
[2023-07-09 05:09] LABS: Alanine Aminotransferase 28 U/L (6-35); Albumin Level 3.1 g/dL (3.5-5.1); Alkaline Phosphatase 77 U/L (38-126); Anion Gap 0 mmol/L (4-12); Aspartate Amino Transferase 20 U/L (14-36); Bilirubin,Total 0.5 mg/dL (0.2-1.3); Blood Urea Nitrogen 12 mg/dL (7-17); Calcium 8.6 mg/dL (8.4-10.2); Carbon Dioxide 29 mmol/L (22-30); Chloride 107 mmol/L (98-107); Estimated CRCL calculation 29 ml/min; Estimated Glomerular Filt Rate 48; Glucose 97 mg/dL (65-110); Potassium 4.7 mmol/L (3.4-5.0); Sodium 136 mmol/L (137-145)
[2023-07-09] MEDS: SUCRALFATE SUSP 100 MG/ML 10 ML UDC 1000 MG PO ×2 (05:44→12:04)
[2023-07-09] MEDS: POTASSIUM BICARBONATE 25 MEQ TABEF PO (08:24)
[2023-07-09] MEDS: PANTOPRAZOLE 40 MG TABLET PO (08:25)
[2023-07-09] MEDS: levETIRAcetam 500 MG TABLET 1500 MG PO (08:25)
[2023-07-09] MEDS: busPIRone HCL 5 MG TABLET 15 MG PO ×2 (08:25→12:04)
[2023-07-09] MEDS: FERROUS SULFATE 325 MG TABLET DR PO (08:25)
[2023-07-09] MEDS: carvediloL 12.5 MG TABLET PO (08:25)
[2023-07-09] MEDS: miSOPROStol 200 MCG TABLET PO (08:25)
[2023-07-09] MEDS: CEPHALEXIN 250 MG CAPSULE PO (08:26)
[2023-07-09] MEDS: PYRIDOXINE HCL 50 MG TABLET 100 MG PO (08:26)
[2023-07-09] MEDS: CITALOPRAM HYDROBROMIDE 20 MG TABLET PO (08:26)
--- NOTE | 2023-07-09 12:22 | WPDGIPROGNO ---
Progress Note: A&P Assessment and Plan (1) Acute on chronic blood loss anemia: Code(s): D62 - Acute posthemorrhagic anemia Status: Acute Assessment and Plan: from non-healing ulcer at GJ anastomosis this time used gold probe continue with protonix bid will make a referral to see surgery as outpatient h/h stable and no more report of gib no objections to discharge by gi standpoint (2) Acute upper gastrointestinal bleeding: Code(s): K92.2 - Gastrointestinal hemorrhage, unspecified Status: Acute Assessment and Plan: resolved (3) Gastrojejunal ulcer with hemorrhage: Code(s): K28.4 - Chronic or unspecified gastrojejunal ulcer with hemorrhage Status: Acute Assessment and Plan: persistent ulcer, non-healing (4) Chronic suprapubic catheter: Code(s): Z93.59 - Other cystostomy status Status: Acute (5) Expressive aphasia: Code(s): R47.01 - Aphasia Status: Acute Assessment and Plan: baseline after stroke (6) History of gastric bypass: Code(s): Z98.84 - Bariatric surgery status Status: Acute Subjective Date/time seen: 07/09/23 12:22 Interval history: she is comfortable, family member at bedside, no more report of bleeding Review of Systems Review of Systems: All systems reviewed & are unremarkable except as noted in HPI and below Exam Const: Other: elderly, chronically ill appearing she is in good spirits today HENMT: Face/Nose/Sinus: Normal nares present Eyes: General: appearance normal, both eyes and all related structures Sclera: sclerae normal Neck: Neck: supple Resp: Effort & Inspection: normal respiratory effort Auscultation: clear to auscultation bilaterally Cardio: Rate: regular rate Rhythm: regular rhythm GI: GI Palp: Yes Soft to palpation and No Guarding due to palpation present (GI) Auscultation: normal bowel sounds Other: suprapubic catheter in place Urinary Catheter: Urinary Catheter: patent and draining and other (suprapubic) Skin: General skin exam: no rashes or lesions noted Neuro: Motor exam (neuro): 5/5 motor strength present throughout Other: +expressive aphasia Extrem: General: normal to inspection Psych: Affect: Anxious affect present Other: Good insight and judgment, pleasant Objective Data Vital Signs Vital Signs: Vital Signs - 24 hr 07/08/23 15:15 07/08/23 17:15 07/08/23 16:00 Temperature 98.2 F Pulse Rate 65 74 66 Respiratory Rate 16 Blood Pressure 168/76 H Pulse Oximetry 100 Oxygen Delivery 07/08/23 20:00 07/08/23 20:03 07/08/23 20:05 Temperature 98.1 F Pulse Rate 65 72 83 Respiratory Rate 16 Blood Pressure 124/64 105/61 97/61 L Pulse Oximetry 96 97 98 Oxygen Delivery 07/08/23 20:00 07/08/23 20:00 07/09/23 00:00 Temperature Pulse Rate 72 83 66 Respiratory Rate 16 Blood Pressure Pulse Oximetry 98 Oxygen Delivery Room Air 07/08/23 23:10 07/09/23 04:00 07/09/23 05:41 Temperature 97.5 F L Pulse Rate 59 L 61 Respiratory Rate 14 Blood Pressure 138/75 Pulse Oximetry 98 98 Oxygen Delivery Room Air 07/09/23 08:12 07/09/23 08:12 07/09/23 08:13 Temperature Pulse Rate Respiratory Rate Blood Pressure 142/80 H 113/75 126/67 Pulse Oximetry Oxygen Delivery 07/09/23 08:25 07/09/23 08:25 07/09/23 11:11 Temperature Pulse Rate 74 Respiratory Rate Blood Pressure Pulse Oximetry Oxygen Delivery Room Air Room Air Intake/Output Intake/Output: Intake & Output 07/06/23 07/07/23 07/08/23 07/09/23 23:59 23:59 23:59 23:59 Intake Total 990 822.5 1140 480 Output Total 1325 3050 2200 1100 Balance -335 -2227.5 -1060 -620 Meds/Results Medications: Active Medications Generic Name Dose Route Start Last Admin Trade Name Freq PRN Reason Stop Dose Admin Acetaminophen 650 mg 07/05/23 16:40 Acetaminophen 325 Mg Tablet PO Q4
--- NOTE | 2023-07-09 15:19 | PM.DS ---
DS: Admitting Diagnosis Discharge Date 07/09/2023 Admitting Diagnosis Bloody stool DS: Discharge Diagnosis Discharge Diagnosis (1) Acute blood loss anemia: Code(s): D62 - Acute posthemorrhagic anemia Status: Acute (2) GI bleed: Code(s): K92.2 - Gastrointestinal hemorrhage, unspecified Status: Acute (3) History of stroke: Code(s): Z86.73 - Personal history of transient ischemic attack (TIA), and cerebral infarction without residual deficits Status: Acute (4) Seizure disorder: Code(s): G40.909 - Epilepsy, unspecified, not intractable, without status epilepticus Status: Acute DS: Summary Hospital Course Hospital Course: The patient presented to the emergency department for evaluation of abdominal pain and bloody stools that started a day prior to admission with associated diffuse abdominal discomfort in the lower abdomen.? Her hemoglobin was stable CT scan did show any acute process was discharged however returned back to the ER several hours later with recurrence of diffuse abdominal cramping and passing 4 large dark tarry stool. .? 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 Hypertension hyperlipidemia seizure disorder chronic kidney disease iron deficiency anemia.? She has underlying mild expressive aphasia which is baseline.? Previous EGD showed a chronic ulcer at GJ anastomosis from prior gastric bypass.? She had been on for his and Carafate.? Rules felt to benefit from seeing her bariatric surgeon for possible revision.? Unfortunately that surgeon is since moved to [place].? She had acute on chronic anemia needing transfusion.? Underwent EGD 07/07/2023 with previous gastric surgery with intestinal ulcer.? Two deep ulcers measuring 5-10 mm were visual GJ anastomosis.? Flat spot noted on.? The ulcer was cauterized with gold probe.? Jejunal limb otherwise normal with no active signs of bleeding.? She will continue on Protonix and Carafate. I have advised her to take no NSAIDs at all.? H pylori stool antigen was ordered and sample was obtained however results were pending at the time of discharge. If tested positive will need to be treated for H pylori H&H remained stable. Okay per GI to discharge Time Spent with Patient Time attestation: Total time spent providing and/or coordinating discharge services:35 mins Exam Narrative: General:?elderly lady not in acute distress Respiratory:?Lungs are clear to auscultation bilaterally. No respiratory distress Cardiovascular:??Regular rate and rhythm with S1-S2. Gastrointestinal:??Abdomen is soft and nondistended with positive bowel sounds. Mild tenderness to palpation, mainly throughout the lower abdomen. No guarding or rebound tenderness. Genitourinary:?Catheter draining clear yellow urine. Suprapubic catheter in place Skin:??Warm and dry. Generalized pallor. Extremities:??No cyanosis, clubbing, or edema. Radial and pedal pulses intact. Neurological:??Alert.? Cranial nerves 2-12 are grossly intact. Has expressive aphasia. No gross focal deficits to casual conversation. Psychiatric:??Pleasant normal mood DS: Data Data Completed and Pending Labs on day of discharge: Labs from last 24 hours 07/09/23 07/09/23 07/08/23 09:31 04:46 15:13 WBC 5.6 6.6 RBC 3.28 L 3.33 L Hgb 9.5 L 9.6 L Hct 29.4 L 30.0 L MCV 89.6 90.1 MCH 29.0 28.8 MCHC 32.3 32.0 RDW 15.9 H 15.9 H Plt Count 197 183 MPV 10.8 H 11.2 H Immature Gran % (Auto) 0.4 0.2 Neut % (Auto) 62.2 67.8 Lymph % (Auto) 22.8 18.7 [place] % (Auto) 10.0 H 9.9 H Eos % (Auto) 4.1 2.6 Baso % (Auto) 0.5 0.8 Lymph # (Auto) 1.28 1.23 [place] # (Auto) 0.6 0.7 H Eos # (Auto) 0.2 0.2 Baso # (Auto) 0.0 0.1 Abs Immat Gran (auto) 0.02 0.01 Absolute Neuts (auto) 3.5 4.5 Absolute Nucleated RBC 0.000 0.000 Nucleated RBC % 0.0 0.0 Sodium 136 L 13
[2023-07-13 17:37] LABS: H pylori Ag Stool Not Detected (Not Detected)
== END 2023-07-09 16:09 | disposition home or self-care (01) ==
LOC: ANHED 14:07 → ANH3MED 17:50
PROVIDERS: Emergency Medicine; Family Medicine; Internal Medicine Gastroenterology; Physician Assistant; Admitting Provider Hospitalist; Emergency Provider Student in an Organized Health Care Education/Training Program; PCP Internal Medicine Gastroenterology; Visit Provider Internal Medicine
PROC: 0DJ08ZZ Inspection of Upper Intestinal Tract, Via Natural or Artificial Opening Endoscopic (ICD-10-PCS; CPT 43235; principal; 2023-07-07 15:00)
DX: K28.7 Chronic gastrojejunal ulcer without hemorrhage or perforation (principal); Z98.0 Intestinal bypass and anastomosis status; Z93.59 Other cystostomy status; D62 Acute posthemorrhagic anemia; Z98.84 Bariatric surgery status; I69.320 Aphasia following cerebral infarction; I69.398 Other sequelae of cerebral infarction; E78.5 Hyperlipidemia, unspecified; I12.9 Hypertensive chronic kidney disease with stage 1 through stage 4 chronic kidney disease, or unspecified chronic kidney disease; N18.9 Chronic kidney disease, unspecified; G40.909 Epilepsy, unspecified, not intractable, without status epilepticus; Z96.653 Presence of artificial knee joint, bilateral; Z79.899 Other long term (current) drug therapy
CPT/HCPCS: 43270; 36415; 36430; 71045; 74174; 80048; 80053; 83605; 83735; 84484; 85025; 85027; 85610; 85730; 86850; 86900; 86901; 86923; 87338; 93005; 96361; 96374; 97161; 97165; 99285; A9270; C9113; G0378; J1940; J2001; J2704; J7050; J7120; P9016; Q9967

== ENCOUNTER 2024-02-03 18:32 | Observation (INO) | payer MEDICARE, OTHER, SELFPAY ==
--- NOTE | ~2024-02-03 | MR_ITS ---
EXAMINATION: MR brain/brain stem wo/w con DATE: 02/08/2024 14:44 INDICATION: Seizure disorder. Meningioma. TECHNIQUE: Magnetic resonance imaging (MRI) of the brain and brainstem was performed without and with 10 mL MultiHance intravenous contrast. COMPARISON: Head CT 02/03/2024 FINDINGS: There is chronic encephalomalacia in left frontal and parietal lobes, left insula, and left basal ganglia with old blood products. There is a 2.4 x 2.4 cm enhancing extra-axial mass at the fal x superomedial to left parietal lobe, consistent with a meningioma. There is a small old infarct in l eft cerebellum. There are scattered areas of nonspecific increased T2-weighted signal intensity in th e cerebral white matter. There is no acute ischemic infarct. There is expected dilatation of left lat eral ventricle. There are likely changes of ocular lens replacement surgeries. The paranasal sinuses are clear. The mastoid air cells are normal. IMPRESSION: 1. 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 2. Chronic encephalomalacia involving the left frontal and parietal lobes, left insula, and left basa l ganglia. Small old infarct in left cerebellum. Reviewed, dictated and finalized at location A. [employer] IMPRESSION: 1. 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 2. Chronic encephalomalacia involving the left frontal and parietal lobes, left insula, and left basal ganglia. Small old infarct in left cerebellum.
--- NOTE | ~2024-02-03 | CT_ITS ---
CT brain wo con Ordering provider: Mandeep Garcia History: 83 years Female with . altered mental status . Comparison: May 17, 2023 Technique: CT of the head without contrast. Radiation reduction technique utilized.The dose-length product was 681 mGy-cm. FINDINGS: BRAIN PARENCHYMA AND CSF SPACES: Mild leukoaraiosis and diffuse cortical atrophy. Mild atheromatous d isease. Encephalomalacia is seen in the left temporal frontal area. No midline shift, mass effect or hemorrhage. The brain parenchyma and CSF spaces are otherwise normal. Calcified meningioma is seen in the parasagittal area of the left upper frontal area unchanged from previous examination VISUALIZED PARANASAL SINUSES: Well aerated. MASTOIDS: Well aerated. BONES: The bones appear intact. SOFT TISSUES: Visualized nasopharynx is normal. Superficial soft tissues are normal. IMPRESSION: No acute intracranial findings. Left parasagittal calcified meningioma unchanged. 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 Reviewed, dictated and finalized at location A. IMPRESSION: No acute intracranial findings. Left parasagittal calcified meningioma unchanged. Encephalomalacia in the left temporofrontal area [facility]
--- NOTE | ~2024-02-03 | XR_ITS ---
XR chest 1V portable Ordering provider: Mandeep Garcia MD History: 83 years Female with . altered mental status . Comparison: None. FINDINGS: MEDIASTINUM: The cardiac silhouette is slightly enlarged. Device is projected over the left hemithora x. LUNGS: No infiltrates, effusions or pneumothorax. OTHER: No free air under the diaphragm. Degenerative spine. Metallic object is projected over the lower cervical spine unchanged. IMPRESSION: No acute cardiopulmonary pathology. Reviewed, dictated and finalized at location A.
--- NOTE | ~2024-02-03 | CT_ITS ---
EXAMINATION: CTA BRAIN/CAROTID DATE: 02/04/2024 00:07 INDICATION: Episode of slurred speech and altered mental status TECHNIQUE: Computed tomographic angiography (CTA) of the head and neck was performed with 100 mL Omni paque-350 intravenous contrast. Multiplanar reconstructions and maximum intensity projection 3D-recon structions of the carotid arteries and of the intracranial arteries were created by the technologist on a separate workstation. Automated exposure control and iterative reconstruction technique were emp loyed.The dose-length product was 940.02 mGy-cm. COMPARISON: CT neck dated 01/06/2023 FINDINGS: Carotid arteries: Visualized aortic arch is normal in caliber with no dissection. There is enlargement of the visualize d portion of the pulmonary arteries consistent with pulmonary arterial hypertension. There is minimal atherosclerotic plaque with 0% stenosis of the right and left carotid bulbs relative to normal dista l artery lumen diameter (NASCET criteria). Left vertebral artery is dominant. Moderate cervical and m oderate to severe upper thoracic spondylosis. C4-C7 anterior spinal fusion with interbody bone graft cage at C6-C7. Chronic T5 compression fracture with one third anterior vertebral body height loss. Vi sualized upper lungs are clear. Intracranial arteries Left vertebral artery is dominant. There is a small amount of nonhemodynamically significant atherosc lerotic plaque at the bilateral carotid siphons. 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 There is no hemodynamically significant stenosis in the vertebral, bas ilar and internal carotid arteries. Both A1 and P1 segments are patent. The bilateral P1 segments are diminutive with majority vascular flow to the posterior cerebral artery supplied from the internal c arotid arteries via a larger caliber patent bilateral posterior commuting arteries. There is also a p atent anterior to indicating artery. Cerebral arterial arborization appears symmetric. IMPRESSION: 1. Minimal atherosclerotic plaque with 0% stenosis of the right and left carotid bulbs relative to no rmal distal artery lumen diameter (NASCET criteria). 2. 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 No cerebral art denisha hemodynamic significant stenosis or thrombosis. Reviewed, dictated and finalized at location A. IMPRESSION: 1. Minimal atherosclerotic plaque with 0% stenosis of the right and left caroti d bulbs relative to normal distal artery lumen diameter (NASCET criteria). 2. 2 mm saccular aneurysm at the lacerum segment of the left internal carotid a rtery. No cerebral artery hemodynamic significant stenosis or thrombosis.
[2024-02-03 18:34] VITALS: BP 177/76; PULSE 62; RESP 17; TEMP 36.6; O2SAT 100
[2024-02-03 18:48] VITALS: O2SAT 100
[2024-02-03 18:54] VITALS: BP 175/97; PULSE 58; RESP 20; O2SAT 100
[2024-02-03 18:57] VITALS: BP 175/97; PULSE 60; RESP 17; TEMP 36.6; O2SAT 100
--- NOTE | 2024-02-03 20:32 | ECG_ITS ---
Test Date: 2024-02-03 22:46:35 Measurements Intervals [place] Rate: 55 P: 74 MT: 158 QRS: 29 QRSD: 88 T: 37 QT: 418 QTc: 402 Interpretive Statements SINUS BRADYCARDIA DELAYED PRECORDIAL R/S TRANSITION LEFT VENTRICULAR HYPERTROPHY AND ST-T CHANGE BORDERLINE ST-T WAVE ABNORMALITY- INF/HIGH LAT LEADS BASELINE ARTIFACT- I, II, AVR, AVL BORDERLINE ECG No previous ECG available for comparison Electronically Signed On 02-04-2024 07:54:46 CDT by Cristian Joya D.O.
[2024-02-03 21:04] LABS: Basophils Absolute Auto 0.1 K/mm3 (0.0-0.1); Basophils Percent Auto 0.9 % (0.2-1.2); Eosinophils Absolute Auto 0.1 K/mm3 (0-0.3); Eosinophils Percent Auto 1.6 % (0-4.4); Hemoglobin 12.1 g/dL (12.0-15.0); Immature Granulocyte Absolute 0.01 K/mm3 (0.00-0.031); Immature Granulocyte Percent A 0.2 % (0-0.5); Immature Platelet Fraction Pct 5.9 % (0.9-11.2); Lymphocytes Absolute Auto 1.52 K/mm3 (0.9-3.2); Lymphocytes Percent Auto 26.4 % (18.3-44.2); Mean Corpuscular HGB Conc 32.7 g/dl (32-36); Mean Corpuscular Hemoglobin 26.3 pg (26-34); Mean Corpuscular Volume 80.4 fl (80-100); Monocytes Absolute Auto 0.5 K/mm3 (0.1-0.6); Neutrophils Absolute Auto 3.6 K/mm3 (1.3-6.7); Neutrophils Percent Auto 61.9 % (45.5-73.1); Platelet Count Result 193 k/mm3 (150-375); White Blood Count 5.8 K/mm3 (4.5-10.0)
[2024-02-03 21:12] LABS: Alanine Aminotransferase 39 U/L (6-35); Albumin Level 4.3 g/dL (3.5-5.1); Alkaline Phosphatase 102 U/L (38-126); Anion Gap 8 mmol/L (4-12); Aspartate Amino Transferase 29 U/L (14-36); Bilirubin,Total 0.3 mg/dL (0.2-1.3); Blood Urea Nitrogen 19 mg/dL (7-17); Carbon Dioxide 25 mmol/L (22-30); Chloride 106 mmol/L (98-107); Estimated CRCL calculation 28 ml/min; Estimated Glomerular Filt Rate 48; Glucose 93 mg/dL (65-110); Potassium 4.1 mmol/L (3.4-5.0); Sodium 139 mmol/L (137-145)
[2024-02-03 21:13] LABS: Lactic Acid Reflex 1.1 mmol/L (0.7-2.0)
[2024-02-03 21:17] LABS: INR 1.1; Partial Thromboplastin Time 30.5 Seconds (22.3-36.8); Prothrombin Time 14.5 Seconds (11.1-14.7)
[2024-02-03 21:19] LABS: Platelet Estimate Adequate (Adequate); Schistocytes Rare
[2024-02-03 21:20] LABS: Anisocytosis 2+
[2024-02-03 21:22] LABS: Acanthocytes 1+
[2024-02-03 21:24] LABS: Troponin I 0.016 ng/mL (0.000-0.034)
--- NOTE | 2024-02-03 21:36 | ED.GENADULT ---
HPI - General Adult General Chief complaint: Altered Mental Status Stated complaint: altered mental status Time Seen by Provider: 02/03/24 20:21 History of Present Illness HPI narrative: Patient is 83-year-old female who presents emergency department with chief complaint of altered mental status. Patient has prior history of stroke with last one being 2 years ago the patient was at home today went to her daughter's house was normal and then when she got to her house she was having an episode of confusion she had difficulty getting words out patient had no motor weakness in her arms or legs family reports symptoms lasted until she arrived to the emergency department and the patient has returned back to her baseline. Related Data Home Medications Medication Instructions Recorded Confirmed misoprostol 200 mcg tablet 200 mcg PO DAILY 11/05/19 07/05/23 atorvastatin 80 mg tablet 80 mg PO HS 08/29/20 07/05/23 carvedilol 12.5 mg tablet (Coreg) 12.5 mg PO BID 05/11/22 07/05/23 citalopram 20 mg tablet 20 mg PO DAILY 05/11/22 07/05/23 levetiracetam 1,000 mg tablet 1,500 mg PO BID 05/11/22 07/05/23 buspirone 15 mg tablet 15 mg PO TID 01/04/23 07/05/23 pyridoxine (vitamin B6) 100 mg 100 mg PO DAILY 01/04/23 07/05/23 tablet cephalexin 250 mg capsule 250 mg PO BID 01/31/23 07/05/23 potassium bicarbonate-citric acid 25 meq PO BID 01/31/23 07/05/23 25 mEq effervescent tablet (Klor-Con/EF) Allergies Allergy/AdvReac Type Severity Reaction Status Date / Time naproxen Allergy Severe cardiac Verified 07/05/23 18:14 arrest NSAIDS (Non-Steroidal Allergy Severe cardiac Verified 07/05/23 18:14 Anti-Inflamma arrest morphine Allergy Mild unknown Verified 07/05/23 18:14 Review of Systems Review of Systems: A 10 system review of systems was completed on the patient and is negative except for what is stated in the HPI. Nursing and ancillary documentation was reviewed. [facility] Past Medical History Medical History Atrophy of left kidney Expressive aphasia Gastrojejunal ulcer with hemorrhage History of gastroscopy 08/18/09, 09/09/09, with structure Hypertension Iron (Fe) deficiency anemia Ischemic cerebrovascular accident (CVA) (08/14/20) Treated with tPA and thrombectomy Seizure disorder Urinary incontinence Vaginal delivery 1960, , full term, female, 7#10 1969, , full term, female, 7#10 Surgical History Surgical History H/O rectal polypectomy 11/13/08, 08/27/03 H/O right heart catheterization 12/17/08 unsure if lt or rt History of breast biopsy 06/09/10, stereotactic, biopsy rt breast History of cholecystectomy 05/09/09 History of endoscopy 12/16/09, 02/10/10, 08/25/10, 04/26/18 History of esophagogastroduodenoscopy (EGD) 04/25/12, with upper GI History of eye surgery 11/05/14 cataract right eye, 11/20/14 cataract left eye, 07/28/18 bilateral removal of scar tissue 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ing MARCUS L4-5, L3-4, Doscectomy/fusion lt iliac crest graft 10/12/01 cervical discectomy and fusion of c6-7 History of spinal surgery 02/10/16 lumbar decompressive laminectomy, transformal lumbar interbody fusion with PEEK spacers, posterior intertransverse fusion, posterior spinal instrumentation, harvesting bone graft History of stress incontinence procedure using tension free vaginal tape 05/18/01 Hx of breast surgery 07/27/10, mastopexy Family History Family History Grandparent Family history of malignant neoplasm of ovary Father Family history of lung cancer Sibling Family history of lung cancer Social History Social History Social History: Code status: Full code. Smoking status: Never smoker Alcohol intake: never Substance use: never Substance use type: does not use Do You Feel Safe in your Home?: Yes Lack of Transportation: No Lack of Food: Never True Current Housing: I Have Housing Concerned About Future Housing: No Difficulty Paying Gas/Electric Bills: No Difficulty Paying for Meds: No Currently Unemployed: No Education: Decline to Answer Difficulty w/ Childcare or Family Care: No Additional living arrangements comments: with 2 children. She lives with her significant other in [place]. 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 Spiritual care concerns: No Exam Narrative: GENERAL: Well-appearing, well-nourished, and in no acute distress. HEAD: Normocephalic, atraumatic. EYES: PERRLA and EOMI. ENT: Nares clear, no rhinorrhea or epistaxis. Mucous membranes moist. NECK: Supple. CHEST: Clear to auscultation. No respiratory distress. HEART: Regular rate and rhythm. No murmur heard. Normal peripheral pulses. ABDOMEN: Soft, nontender, nondistended, normal active bowel sounds. EXTREMITIES: Normal range of motion. No edema. SKIN: Warm, dry, no rash. NEURO: No focal deficits. Alert and oriented x3. PSYCH: Normal mood and affect. Course Vital Signs Vital signs: Vital Signs Temperature 36.6 C 02/03/24 18:34 Pulse Rate 62 02/03/24 18:34 Respiratory Rate 17 02/03/24 18:34 Blood Pressure 177/76 H 02/03/24 18:34 Pulse Oximetry 100 02/03/24 18:34 Oxygen Delivery Room Air 02/03/24 18:34 Temperature 36.6 C 02/03/24 18:57 Pulse Rate 60 02/03/24 18:57 Respiratory Rate 17 02/03/24 18:57 Blood Pressure 175/97 H 02/03/24 18:57 Pulse Oximetry 100 02/03/24 18:57 Oxygen Delivery Room Air 02/03/24 18:48 Medical Decision Making MDM Narrative Medical decision making narrative: Differential diagnosis includes seizure, syncope, electrolyte abnormality, UTI pneumonia CT head showed no acute abnormalities it redemonstrated her previous stroke the case was discussed with the hospitalists we do not have neurology coverage this weekend the case was discussed with the patient's primary neurology team at [facility] who recommended that the patient could be observed locally and they will follow the patient in the clinic they recommended no immediate changes to her anti left take therapy Vital Signs Vital Signs: Vital Signs Temperature 36.6 C 02/03/24 18:34 Pulse Rate 62 02/03/24 18:34 Respiratory Rate 17 02/03/24 18:34 Blood Pressure 177/76 H 02/03/24 18:34 Pulse Oximetry 100 02/03/24 18:34 Oxygen Delivery Room Air 02/03/24 18:34 Temperature 36.6 C 02/03/24 18:57 Pulse Rate 60 02/03/24 18:57 Respiratory Rate 17 02/03/24 18:57 Blood Pressure 175/97 H 02/03/24 18:57 Pulse Oximetry 100 02/03/24 18:57 Oxygen Delivery Room Air 02/03/24 18:48 Lab Data 02/03/24 20:54 02/03/24 20:54 Labs: Lab Results 02/03/24 02/03/24 02/03/24 Range/Units 20:54 22:41 22:42 WBC 5.8 (4.5-10.0) K/mm3 RBC 4.60 (4.2-5.4) M/mm3 Hgb 12.1 (12.0-15.0) g/dL Hct 37.0 (37.0-47.0) % MCV 80.4 (80-100) fl MCH 26.3 (26-34) pg MCHC 32.7 (32-36) g/dl RDW TNP Plt Count 193 (150-375) k/mm3 MPV 10.0 (7.4-10.4) fl Immature Gran % (Auto) 0.2 (0-0.5) % Neut % (Auto) 61.9 (45.5-73.1) % Lymph % (Auto) 26.4 (18.3-44.2) % [place] % (Auto) 9.0 H (2.6-8.5) % Eos % (Auto) 1.6 (0-4.4) % Baso % (Auto) 0.9 (0.2-1.2) % Lymph # (Auto) 1.52 (0.9-3.2) K/mm3 [place] # (Auto) 0.5 (0.1-0.6) K/mm3 Eos # (Auto) 0.1 (0-0.3) K/mm3 Baso # (Auto) 0.1 (0.0-0.1) K/mm3 Abs Immat Gran (auto) 0.01 (0.00-0.031) K/mm3 Absolute Neuts (auto) 3.6 (1.3-6.7) K/mm3 Absolute Nucleated RBC 0.000 (0.0-0.012) K/mm3 Nucleated RBC % 0.0 (0.0-0.2) % Platelet Estimate Adequate (Adequate) % Immature Plt Fraction 5.9 (0.9-11.2) % Anisocytosis 2+ Acanthocytes (Spur) 1+ Schistocytes Rare PT 14.5 (11.1-14.7) Seconds INR 1.1 APTT 30.5 (22.3-36.8) Seconds Sodium 139 (137-145) mmol/L Potassium 4.1 (3.4-5.0) mmol/L Chloride 106 (98-107) mmol/L Carbon Dioxide 25 (22-30) mmol/L Anion Gap 8 (4-12) mmol/L BUN 19 H (7-17) mg/dL Creatinine 1.10 H (0.7-1.0) mg/dL Estim Creat Clear Calc 28 ml/min Estimated GFR 48 L (59 - ) Glucose 93 (65-110) mg/dL Lactic Acid 1.1 (0.7-2.0) mmol/L Calcium 9.0 (8.4-10.2) mg/dL Magnesium 2.0 (1.6-2.3) mg/dL Total Bilirubin 0.3 (0.2-1.3) mg/dL AST 29 (14-36) U/L ALT 39 H (6-35) U/L Alkaline Phosphatase 102 (38-126) U/L Troponin I 0.016 0.014 (0.000-0.034) ng/mL Total Protein 7.0 (6.3-8.2) g/dL Albumin 4.3 (3.5-5.1) g/dL Urine Color Yellow (Yellow) Urine Appearance Clear (Clear) Urine pH 8.0 (5.0-9.0) Ur Specific [place] 1.004 (1.001-1.035) Urine Protein Negative (Negative) mg/dL Urine Glucose (UA) Negative (Negative) mg/dL Urine Ketones Negative (Negative) mg/dL Ur Blood (Man) Negative (Negative) Urine Nitrate Positive H (Negative) Urine Bilirubin Negative (Negative) Urine Urobilinogen 0.2 (<2.0) mg/dL Add Ur Microanalysis Reviewed Leukocyte Esterase Rfl 2+ H (Negative) ISIDRO/UL Urine RBC 0-2 (0-2) /hpf Urine WBC 6-10 H (0-3) /hpf Ur Squamous Epith Cells None seen (Few) /hpf Urine Bacteria 2+ H /hpf Urine Casts 0-2 Influenza A (RT-PCR) Negative (Negative) Influenza B (RT-PCR) Negative (Negative) RSV (RT-PCR) Negative (Negative) SARS-CoV-2 RNA (RT-PCR) Negative (Negative) Discharge Plan Discharge Clinical Impression: Altered mental status Patient Disposition: Still a Patient Condition: Stable Prescriptions: No Action misoprostol 200 mcg tablet 200 mcg PO DAILY Rx Instructions: administer with meal carvedilol [Coreg] 12.5 mg Tablet 12.5 mg PO BID Rx Instructions: must administer with a meal/food citalopram 20 mg Tablet 20 mg PO DAILY levetiracetam 1,000 mg Tablet 1,500 mg PO BID Klor-Con/EF 25 mEq tablet, effervescent 25 meq PO BID cephalexin 250 mg capsule 250 mg PO BID cephalexin 500 mg capsule 500 mg PO Q12H Qty: 10 0RF atorvastatin 80 mg tablet 80 mg PO HS pyridoxine (vitamin B6) 100 mg tablet 100 mg PO DAILY buspirone 15 mg tablet 15 mg PO TID sucralfate 100 mg/mL Suspension 1,000 mg PO ACHS Qty: 1000 1RF ferrous sulfate 325 mg (65 mg iron) tablet 325 mg PO BID Qty: 60 0RF pantoprazole 40 mg tablet,delayed release (DR/EC) 40 mg PO BID Qty: 60 11RF Follow-up/Referrals: Jeffery,Maria Del Carmen Horton MD [Primary Care Provider] - Time of Disposition: 01:23
[2024-02-03 21:38] LABS: Influenza A QL RT-PCR Negative (Negative); Influenza B QL RT-PCR Negative (Negative); RSV RNA, RT-PCR Negative (Negative); SARS-CoV-2 RNA PCR Negative (Negative)
[2024-02-03 23:09] LABS: Add Urine Microscopic? YES; Appearance Urine Clear (Clear); Bacteria Urine 2+ /hpf; Bilirubin Urine Negative (Negative); Blood Urine Negative (Negative); Color Urine Yellow (Yellow); Glucose Urine UA Negative (Negative); Ketones Urine Negative (Negative); Leukocyte Esterase Ur 2+ LEU/UL (Negative); Need Manual Microscopic Reviewed; Nitrate Urine Positive (Negative); Non Pathogenic Casts 0-2; Protein Urine Negative (Negative); RBC Urine 0-2 /hpf (0-2); Specific Grav Ur 1.004 (1.001-1.035); Squamous Epithelial Cell Urine None Seen /hpf (Few); Urobilinogen Urine 0.2 mg/dL (<2.0)
[2024-02-03 23:12] LABS: Troponin I 0.014 ng/mL (0.000-0.034)
[2024-02-04] VITALS (12 sets, daily range): BP systolic 144–174; BP diastolic 80–104; PULSE 59–79; RESP 13–30; TEMP 36.5–36.8; O2SAT 95–97; BMI 18.9
--- NOTE | 2024-02-04 01:20 | P.HP_ITS ---
H&P: HPI History of Present Illness Date/Time: 02/04/24 00:30 Chief Complaint: Altered mental status. 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 She is a fair historian due to chronic expressive aphasia and evidence of some memory loss and her daughter Pavithra provides additional information with the patient's permission. The patient lives with her significant other and he has noticed that over the past 1 week or so she has been having frequent episodes where she becomes unresponsive however she seems alert as her eyes are open. At times she leans over to the side during these episodes but is able to right herself quickly when she comes too. Today she went to visit her grandchildren and she seemed to be fine at that time however Pavithra states that she seemed more quiet than usual. Back at home another daughter came to visit and reports the patient had another episode where she became unresponsive though her eyes were open she was not following commands or tracking with her eyes. There were no reports of tremors, tongue bite, or incontinence. One she started to respond, she was unable to answer questions appropriately such as what she had done earlier in the day and she was brought in for evaluation. At the time of my evaluation the patient is alert and has no complaints. She is asking when she can go home. She denies vertigo, headache, visual changes, focal weakness, paresthesias, difficulty swallowing, chest pain, palpitations, nausea, vomiting, diarrhea, and dysuria. She has not had any recent falls or head trauma. She reports taking her medications as prescribed. Of note, she has a routine appointment with her neurologist at [facility] on 02/21/2024. Her daughters are concerned that she may have underlying dementia as she has increasing episodes of confusion and has personality changes with reports of ?becoming irate easily. ? In the ED: Vital signs were stable on arrival though blood pressures have been running a bit high. CMP and CBC were reviewed and are consistent with her baseline labs. Urinalysis was nitrate and leukocyte esterase positive with 6 to 10 wbc's per high-power field and 2+ bacteria. She tested negative for influenza, RSV, and COVID. Head CT and CTA of the head and neck did not show any acute findings. ED physician spoke with the on-call neurologist at [facility]. At this time he does not recommend any changes in her levetiracetam and close monitoring overnight. She can follow-up with them as scheduled on 02/21/2024. Review of Systems Review of Systems: 12 systems were reviewed and are negativ e except for as per HPI. [facility] Past Medical History Medical History (Updated 02/04/24 @ 05:51 by Alicia Hernandez PA-C) Atrophy of left kidney Chronic kidney disease Expressive aphasia Gastrojejunal ulcer with hemorrhage History of gastroscopy 08/18/09, 09/09/09, with structure Hypertension Iron (Fe) deficiency anemia Ischemic cerebrovascular accident (CVA) (08/14/20) Treated with tPA and thrombectomy Meningioma Seizure disorder Urinary incontinence Vaginal delivery 1960, , full term, female, 7#10 1969, , full term, female, 7#10 Surgical History Surgical History H/O rectal polypectomy 11/13/08, 08/27/03 H/O right heart catheterization 12/17/08 unsure if lt or rt History of breast biopsy 06/09/10, stereotactic, biopsy rt breast History of cholecystectomy 05/09/09 History of endoscopy 12/16/09, 02/10/10, 08/25/10, 04/26/18 History of esophagogastroduodenoscopy (EGD) 04/25/12, with upper GI History of eye surgery 11/05/14 cataract right eye, 11/20/14 cataract left eye, 07/28/18 bilateral removal of scar tissue 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ing MARCUS L4-5, L3-4, Doscectomy/fusion lt iliac crest graft 10/12/01 cervical discectomy and fusion of c6-7 History of spinal surgery 02/10/16 lumbar decompressive laminectomy, transformal lumbar interbody fusion with PEEK spacers, posterior intertransverse fusion, posterior spinal instrumentation, harvesting bone graft History of stress incontinence procedure using tension free vaginal tape 05/18/01 Hx of breast surgery 07/27/10, mastopexy Family History Family History Grandparent Family history of malignant neoplasm of ovary Father Family history of lung cancer Sibling Family history of lung cancer Social History Social History (Updated 02/04/24 @ 05:45 by Alicia Hernandez PA-C) Social History: Surrogate medical decision maker: Pavithra Vargas ([phone]), daughter. Code status: Full code. Smoking status: Never smoker Alcohol intake: never Substance use: never Substance use type: does not use Do You Feel Safe in your Home?: Yes Lack of Transportation: No Lack of Food: Never True Current Housing: I Have Housing Concerned About Future Housing: No Difficulty Paying Gas/Electric Bills: No Difficulty Paying for Meds: No Currently Unemployed: No Education: High School Diploma/GED Difficulty w/ Childcare or Family Care: No Living arrangements: with family Additional living arrangements comments: with 2 children. She lives with her significant other in [place]. 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 Spiritual care concerns: No Meds Home Medications and Allergies Home Medications Medication Instructions Recorded Confirmed Type misoprostol 200 mcg tablet 200 mcg PO DAILY 11/05/19 02/04/24 History atorvastatin 80 mg tablet 80 mg PO HS 08/29/20 02/04/24 History citalopram 20 mg tablet 20 mg PO DAILY 05/11/22 02/04/24 History levetiracetam 1,000 mg tablet 1,500 mg PO BID 05/11/22 02/04/24 History buspirone 15 mg tablet 15 mg PO TID 01/04/23 02/04/24 History pyridoxine (vitamin B6) 100 mg 100 mg PO DAILY 01/04/23 02/04/24 History tablet ferrous sulfate 325 mg (65 mg 325 mg PO BID #60 tabs 05/20/23 02/04/24 Rx iron) tablet sucralfate 100 mg/mL oral 1,000 mg (10 mL) PO ACHS #1,000 mL 05/20/23 02/04/24 Rx suspension pantoprazole 40 mg tablet,delayed 40 mg PO BID #60 tabs 07/09/23 02/04/24 Rx release potassium bicarbonate-citric acid 25 meq PO BID 02/04/24 02/04/24 History 25 mEq effervescent tablet (Effer-K) Allergies Allergy/AdvReac Type Severity Reaction Status Date / Time naproxen Allergy Severe cardiac Verified 07/05/23 18:14 arrest NSAIDS (Non-Steroidal Allergy Severe cardiac Verified 07/05/23 18:14 Anti-Inflamma arrest morphine Allergy Mild unknown Verified 07/05/23 18:14 Vital Signs Vital Signs - 24 hr 02/03/24 18:34 02/03/24 18:48 02/03/24 18:57 Temperature 97.8 F 97.9 F Pulse Rate 62 60 Respiratory Rate 17 17 Blood Pressure 177/76 H 175/97 H Pulse Oximetry 100 100 100 Oxygen Delivery Room Air Room Air 02/03/24 18:54 Temperature Pulse Rate 58 L Respiratory Rate 20 Blood Pressure 175/97 H Pulse Oximetry 100 Oxygen Delivery Exam Narrative: General:?Frail elderly female supine in bed in no acute distress. Weight: 48.6 kg. BMI: 19.0. HEENT:??PERRL, EOMI. Sclera anicteric. Tacky mucous membranes. Neck:??Supple. No carotid bruits. Respiratory:?Lungs are clear to auscultation bilaterally. Cardiovascular:??Regular rate and rhythm with S1-S2. Gastrointestinal:??Abdomen is soft, nontender, and nondistended with positive bowel sounds. Skin:??Warm and dry. Extremities:??No cyanosis, clubbing, or edema. Radial and pedal pulses intact. Neurological:??Alert to name and date of . She is aware that she is in the hospital but is not able to provide me in what contacts she was brought here. Disoriented to time.? Cranial nerves 2-12 are grossly intact. Expressive aphasia which seems similar to when I have seen this patient previously. No facial asymmetry. Hand director service and foot pushes equal bilaterally. No pronator drift. Psychiatric:??Pleasant and cooperative with appropriate mood and affect. Seems a bit forgetful. H&P: Results Labs Labs: Short CBC 02/03/24 Range/Units 20:54 WBC 5.8 (4.5-10.0) K/mm3 Hgb 12.1 (12.0-15.0) g/dL Hct 37.0 (37.0-47.0) % Plt Count 193 (150-375) k/mm3 BMP 02/03/24 20:54 Sodium 139 Potassium 4.1 Chloride 106 Carbon Dioxide 25 BUN 19 H Creatinine 1.10 H Glucose 93 Calcium 9.0 Cardiac Enzymes 02/03/24 02/03/24 Range/Units 20:54 22:42 Troponin I 0.016 0.014 (0.000-0.034) ng/mL Liver Function 02/03/24 Range/Units 20:54 Total Bilirubin 0.3 (0.2-1.3) mg/dL AST 29 (14-36) U/L ALT 39 H (6-35) U/L Alkaline Phosphatase 102 (38-126) U/L Albumin 4.3 (3.5-5.1) g/dL Urine 02/03/24 Range/Units 22:41 Urine Color Yellow (Yellow) Urine Appearance Clear (Clear) Urine pH 8.0 (5.0-9.0) Ur Specific [place] 1.004 (1.001-1.035) Urine Protein Negative (Negative) mg/dL Urine Glucose (UA) Negative (Negative) mg/dL Imaging Chest X-Ray 02/03/24 21:19 IMPRESSION: No acute cardiopulmonary pathology. Head CT 02/03/24 22:07 IMPRESSION: No acute intracranial findings. Left parasagittal calcified meningioma unchanged. 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 Assessment and Plan Assessment and plan (1) Altered mental status: Code(s): R41.82 - Altered mental status, unspecified Status: Acute (2) Seizure disorder: Code(s): G40.909 - Epilepsy, unspecified, not intractable, without status epilepticus Status: Acute (3) Meningioma: Code(s): D32.9 - Benign neoplasm of meninges, unspecified Status: Acute (4) Chronic kidney disease: Code(s): N18.9 - Chronic kidney disease, unspecified Status: Acute Plan The patient presented to the emergency department for evaluation of altered mental status as detailed in HPI. Labs, imaging, EKG, and all reports were personally reviewed. It sounds as though the patient may be having seizures with reports of unresponsiveness though appears awake. Family members are also concerned that she has be come more forgetful and has some personality changes. ED physician spoke with on-call neurologist at [facility] who did not recommend any changes in medications and they will see her in follow-up on 02/21/2024. She will be monitored overnight. Brain MRI ordered to rule out anything acute though she does not have any focal findings on exam which are different from her baseline. Vital signs were reviewed and they are stable. Kidney function is stable on review of previous labs. Her home medications will be reviewed and resumed as appropriate. Findings and treatment plan were discussed with the patient. Questions were solicited and answered to satisfaction. The patient's medical management will be taken over by the hospitalist team in a.m. Quality VTE Prophylaxis VTE prophylaxis: mechanical ordered The patient has been admitted under observation status. Hospitalist MIPS Advance Care Plan I have confirmed that the patient's Advanced Care Plan is present, code status is documented, or surrogate decision maker is listed in patient medical record.: Yes Medication Reconciliation I have utilized all available resources to obtain, update and review the patients current medications (includes all prescriptions, OTC, herbals, cannabis, and nutritional supplements).: Yes
--- NOTE | 2024-02-04 01:26 | PC.NURSE ---
Food and water given to pt. Ok per Hospitalist.
--- NOTE | 2024-02-04 02:59 | ADMGEN ---
This patient, Nicole Patricia, was admitted to 3 Med Surg Room 304-02. Patient/family oriented to hospital policies and general routines including ID bracelet, bed and alarms, visiting hours, pain management, procedures, bathroom and other care routines, personal items, smoking policy, room service/diet, and visiting hours. Information on how to activate the Rapid Response Team has been discussed. Patient/Family are encouraged to report perceived risks to care and to ask questions if they do not understand what they are told or what they should do.
[2024-02-04] MEDS: SUCRALFATE SUSP 100 MG/ML 10 ML UDC 1000 MG PO ×4 (06:07→21:08)
[2024-02-04] MEDS: levETIRAcetam 500 MG TABLET 1500 MG PO ×2 (08:16→21:07)
[2024-02-04] MEDS: CITALOPRAM HYDROBROMIDE 20 MG TABLET PO (08:16)
[2024-02-04] MEDS: POTASSIUM BICARBONATE 25 MEQ TABEF PO ×2 (08:16→16:19)
[2024-02-04] MEDS: busPIRone HCL 5 MG TABLET 15 MG PO ×3 (08:16→16:19)
[2024-02-04] MEDS: PYRIDOXINE HCL 50 MG TABLET 100 MG PO (08:17)
[2024-02-04] MEDS: FERROUS SULFATE 325 MG TABLET DR BY MOUTH ×2 (08:17→16:19)
[2024-02-04] MEDS: PANTOPRAZOLE 40 MG TABLET PO ×2 (08:17→16:19)
[2024-02-04] MEDS: miSOPROStol 200 MCG TABLET PO (08:17)
--- NOTE | 2024-02-04 08:31 | PM.IMPN ---
Progress Note: A&P Assessment and Plan (1) Altered mental status: Code(s): R41.82 - Altered mental status, unspecified Status: Acute Assessment and Plan: Per family, patient has been having frequent episodes where she becomes unresponsive though her eyes were open she was not following commands or tracking with her eyes. There were no reports of tremors, tongue bite, or incontinence. One she started to respond, she was unable to answer questions appropriately. Family members are also concerned that she has be come more forgetful and has some personality changes, possibly related to underlying dementia. - Per chart review, ED physician spoke with the on-call neurologist at [facility]. At this time he does not recommend any changes in her levetiracetam and close monitoring overnight. She can follow-up with them as scheduled on 02/21/2024. 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 She gives no history to suggest underlying infection. No indication for antibiotics at this time. - Head CT: No acute intracranial findings. Left parasagittal calcified meningioma unchanged. 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 - Brain MRI ordered waiting on [facility] records for loop recorder (2) Seizure disorder: Code(s): G40.909 - Epilepsy, unspecified, not intractable, without status epilepticus Status: Acute Assessment and Plan: Chronic, follows neurology at [facility]. Appointment scheduled for 02/20. - Per chart review, ED physician spoke with the on-call neurologist at [facility]. At this time he does not recommend any changes in her levetiracetam and close monitoring overnight. She can follow-up with them as scheduled on 02/21/2024. - Continue Keppra 1500 BID - Seizure precautions - Monitor (3) Meningioma: Code(s): D32.9 - Benign neoplasm of meninges, unspecified Status: Acute Assessment and Plan: Chronic. - Head CT: Left parasagittal calcified meningioma unchanged (4) Chronic kidney disease: Code(s): N18.9 - Chronic kidney disease, unspecified Status: Acute Assessment and Plan: BUN/Cr 19/1.1 on admission. Appears at baseline. - Monitor I/O - Monitor electrolytes - Avoid nephrotoxic medications - Renally dose medications Time Spent With Patient Time with patient: 25 - 35 minutes Subjective Date/time seen: 02/04/24 08:31 Interval history: 83-year-old female with history of seizure disorder, hypertension, hyperlipidemia, chronic kidney disease, iron deficiency anemia, meningioma, and Marlee-en-Y in January 2009 with history of GI bleeding related to a chronic ulcer at the GJ anastomosis who presented to the hospital for evaluation of altered mental status. Patient is pleasant lying comfortably in bed. She is alert and oriented x3 with expressive aphasia at time assessment. There is no noted seizure activity throughout assessment. Discussed patient with nursing and they have not seeing any seizure activity either. Will continue seizure precautions and neuro checks. Patient is waiting on a brain MRI to further rule out stroke. waiting on [facility] records for loop recorder before moving forward with the MRI. patient has no complaints at this time denying chest pain, shortness breast, nausea/vomiting, changes in bowel bladder and abdominal pain. Review of Systems Review of Systems: All systems reviewed & are unremarkable except as noted in HPI and below Exam Narrative: AF HR 74 RR 18 SPO2 97 BP 148/93 General: female in no acute respiratory distress who is nontoxic appearing, lying semi recumbent in bed. HEENT: Normocephalic. Atraumatic. Pupils equal round reactive to light. Extraocular movement intact. Sclera clear and anicteric. No facial asymmetry. Chest: Lungs are clear to auscultation bilaterally. No wheezes or crackles. CV: Heart was regular rate and rhythm. S1-S2. No murmurs, gallops, or rubs. Abd: Abdomen was soft. Nontender. Nondistended. Positive bowel sounds. No organomegaly or masses. Ext: No clubbing, cyanosis, or edema. 2+ DP pulses bilaterally. Neuro: Patient is alert and oriented x4. Expressive aphasia, chronic from chart review. Strength is 5/5 in both upper and lower extremities. No upper extremity drift. finger to nose test normal. Cranial nerves 2-12 are intact. Speech is clear. Objective Data Vital Signs Vital Signs: Vital Signs - 24 hr 02/03/24 18:34 02/03/24 18:48 02/03/24 18:57 Temperature 97.8 F 97.9 F Pulse Rate 62 60 Respiratory Rate 17 17 Blood Pressure 177/76 H 175/97 H Pulse Oximetry 100 100 100 Oxygen Delivery Room Air Room Air 02/03/24 18:54 02/04/24 01:54 02/04/24 03:22 Temperature 98.2 F Pulse Rate 58 L 71 63 Respiratory Rate 20 13 16 Blood Pressure 175/97 H 148/84 H 150/82 H Pulse Oximetry 100 97 97 Oxygen Delivery 02/04/24 03:56 02/04/24 04:00 Temperature Pulse Rate 59 L Respiratory Rate Blood Pressure Pulse Oximetry Oxygen Delivery Room Air Meds/Results Medications: Active Medications Generic Name Dose Route Start Last Admin Trade Name Magdi PRN Reason Stop Dose Admin Atorvastatin Calcium 80 mg 02/04/24 21:00 Atorvastatin 40 Mg Tablet PO HS MADY Buspirone HCl 15 mg 02/04/24 09:00 02/04/24 08:16 Buspirone Hcl 5 Mg Tablet PO 15 mg TID MADY Administration Citalopram Hydrobromide 20 mg 02/04/24 09:00 02/04/24 08:16 Citalopram Hydrobromide 20 Mg Tablet PO 20 mg DAILY MADY Administration Ferrous Sulfate 325 mg 02/04/24 09:00 02/04/24 08:17 Ferrous Sulfate [address] BY MOUTH 325 mg BID MADY Administration Levetiracetam 1,500 mg 02/04/24 09:00 02/04/24 08:16 Levetiracetam 500 Mg Tablet PO 1,500 mg Q12HR MADY Administration Misoprostol 200 mcg 02/04/24 08:00 02/04/24 08:17 Misoprostol 200 Mcg Tablet PO 200 mcg DAILY@0800 MADY Administration Pantoprazole Sodium 40 mg 02/04/24 09:00 02/04/24 08:17 Pantoprazole 40 Mg Tablet PO 40 mg BID MADY Administration Potassium Bicarbonate 25 meq 02/04/24 09:00 02/04/24 08:16 Potassium Bicarbonate 25 Meq Tabef PO 25 meq BID MADY Administration Pyridoxine HCl 100 mg 02/04/24 09:00 02/04/24 08:17 Pyridoxine Hcl 50 Mg Tablet PO 100 mg QAM MADY Administration Sucralfate 1,000 mg 02/04/24 07:00 02/04/24 06:07 Sucralfate Susp 100 Mg/Ml 10 Ml Udc PO 1,000 mg 0700,1100,1600,2100 MADY Administration Radiology Results: ITS Impressions Chest X-Ray 02/03/24 21:19 IMPRESSION: No acute cardiopulmonary pathology. Head CT 02/03/24 22:07 IMPRESSION: No acute intracranial findings. Left parasagittal calcified meningioma unchanged. 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 Labs Labs: Laboratory Results - last 24 hr 02/03/24 02/03/24 02/03/24 20:54 22:41 22:42 WBC 5.8 RBC 4.60 Hgb 12.1 Hct 37.0 MCV 80.4 MCH 26.3 MCHC 32.7 RDW TNP Plt Count 193 MPV 10.0 Immature Gran % (Auto) 0.2 Neut % (Auto) 61.9 Lymph % (Auto) 26.4 [place] % (Auto) 9.0 H Eos % (Auto) 1.6 Baso % (Auto) 0.9 Lymph # (Auto) 1.52 [place] # (Auto) 0.5 Eos # (Auto) 0.1 Baso # (Auto) 0.1 Abs Immat Gran (auto) 0.01 Absolute Neuts (auto) 3.6 Absolute Nucleated RBC 0.000 Nucleated RBC % 0.0 Platelet Estimate Adequate % Immature Plt Fraction 5.9 Anisocytosis 2+ Acanthocytes (Spur) 1+ Schistocytes Rare PT 14.5 INR 1.1 APTT 30.5 Sodium 139 Potassium 4.1 Chloride 106 Carbon Dioxide 25 Anion Gap 8 BUN 19 H Creatinine 1.10 H Estim Creat Clear Calc 28 Estimated GFR 48 L Glucose 93 Lactic Acid 1.1 Calcium 9.0 Magnesium 2.0 Total Bilirubin 0.3 AST 29 ALT 39 H Alkaline Phosphatase 102 Troponin I 0.016 0.014 Total Protein 7.0 Albumin 4.3 Urine Color Yellow Urine Appearance Clear Urine pH 8.0 Ur Specific Kaiser 1.004 Urine Protein Negative Urine Glucose (UA) Negative Urine Ketones Negative Ur Blood (Man) Negative Urine Nitrate Positive H Urine Bilirubin Negative Urine Urobilinogen 0.2 Add Ur Microanalysis Reviewed Leukocyte Esterase Rfl 2+ H Urine RBC 0-2 Urine WBC 6-10 H Ur Squamous Epith Cells None seen Urine Bacteria 2+ H Urine Casts 0-2 Influenza A (RT-PCR) Negative Influenza B (RT-PCR) Negative RSV (RT-PCR) Negative SARS-CoV-2 RNA (RT-PCR) Negative Quality VTE Prophylaxis VTE prophylaxis: pharmacologic ordered
--- NOTE | 2024-02-04 14:19 | PC.NURSE ---
Requested medical records from [facility] from Dr. Joaquin Plascencia for patient's loop recorder. Request for information form filled out with patient's POA/daughter, Pavithra. Form faxed over to [facility] after speaking with house cleaner supervisor there. Awaiting fax back from [facility] with records.
[2024-02-04] MEDS: ATORVASTATIN 40 MG TABLET 80 MG PO (21:07)
[2024-02-05] VITALS (9 sets, daily range): BP systolic 130–178; BP diastolic 87–98; PULSE 62–79; RESP 16–22; TEMP 36.6–37.3; O2SAT 93–97
--- NOTE | 2024-02-05 01:26 | PC.NURSE ---
Daylight Savings Time For Daylight Savings Time Ending in the Fall - Clocks are moved back. For Daylight Savings Time Beginning in the Spring - Clocks are moved ahead. For [facility], the time of change occurs at 0200 hrs. Time is taken from the gravity meter observer. This entry on the patient's chart recognizes the change in time reflected during documentation. Example: 2 entries for vital signs may be charted for 0200 hrs.
[2024-02-05 06:32] LABS: Basophils Percent Auto 0.8 % (0.2-1.2); Eosinophils Absolute Auto 0.1 K/mm3 (0-0.3); Eosinophils Percent Auto 2.1 % (0-4.4); Hematocrit 37.2 % (37.0-47.0); Hemoglobin 12.1 g/dL (12.0-15.0); Immature Granulocyte Absolute 0.01 K/mm3 (0.00-0.031); Immature Granulocyte Percent A 0.2 % (0-0.5); Lymphocytes Absolute Auto 1.44 K/mm3 (0.9-3.2); Lymphocytes Percent Auto 30.6 % (18.3-44.2); Mean Corpuscular HGB Conc 32.5 g/dl (32-36); Mean Corpuscular Hemoglobin 26.4 pg (26-34); Mean Corpuscular Volume 81.2 fl (80-100); Mean Platelet Volume 10.3 fl (7.4-10.4); Monocytes Absolute Auto 0.5 K/mm3 (0.1-0.6); Monocytes Percent Auto 11.3 % (2.6-8.5); Neutrophils Absolute Auto 2.6 K/mm3 (1.3-6.7); Platelet Count Result 178 k/mm3 (150-375); Red Blood Count 4.58 M/mm3 (4.2-5.4); Red Cell Distribution Width 25.5 % (11.5-14.5); White Blood Count 4.7 K/mm3 (4.5-10.0)
[2024-02-05 06:43] LABS: Alanine Aminotransferase 39 U/L (6-35); Albumin Level 3.6 g/dL (3.5-5.1); Alkaline Phosphatase 82 U/L (38-126); Anion Gap 7 mmol/L (4-12); Aspartate Amino Transferase 27 U/L (14-36); Bilirubin,Total 0.4 mg/dL (0.2-1.3); Blood Urea Nitrogen 18 mg/dL (7-17); Carbon Dioxide 26 mmol/L (22-30); Chloride 104 mmol/L (98-107); Estimated CRCL calculation 26 ml/min; Estimated Glomerular Filt Rate 43; Glucose 90 mg/dL (65-110); Potassium 4.2 mmol/L (3.4-5.0); Sodium 137 mmol/L (137-145)
[2024-02-05 07:05] LABS: Acanthocytes 1+; Anisocytosis 2+; Platelet Estimate Adequate (Adequate); Poikilocytosis 1+; Schistocytes 1+
--- NOTE | 2024-02-05 08:38 | P.PNIM_ITS ---
Progress Note: A&P Assessment and Plan (1) Altered mental status: Code(s): R41.82 - Altered mental status, unspecified Status: Acute Assessment and Plan: Per family, patient has been having frequent episodes where she becomes unresponsive though her eyes were open she was not following commands or tracking with her eyes. There were no reports of tremors, tongue bite, or incontinence. Once she started to respond, she was unable to answer questions appropriately. Family members are also concerned that she has be come more forgetful and has some personality changes, possibly related to underlying dementia. - Per chart review, ED physician spoke with the on-call neurologist at [facility]. At this time he does not recommend any changes in her levetiracetam and close monitoring overnight. She can follow-up with them as scheduled on 02/21/2024. 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 She gives no history to suggest underlying infection. No indication for antibiotics at this time. - Head CT: No acute intracranial findings. Left parasagittal calcified meningioma unchanged. 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 - Head/neck CTA: Minimal atherosclerotic plaque with 0% stenosis of the right and left carotid bulbs relative to normal distal artery lumen diameter (NASCET criteria). 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 No cerebral artery hemodynamic significant stenosis or thrombosis. - Brain MRI ordered waiting on [facility] records for loop recorder (2) Seizure disorder: Code(s): G40.909 - Epilepsy, unspecified, not intractable, without status epilepticus Status: Acute Assessment and Plan: Chronic, follows neurology at [facility]. Appointment scheduled for 02/20. - Per chart review, ED physician spoke with the on-call neurologist at [facility]. At this time he does not recommend any changes in her levetiracetam and close monitoring overnight. She can follow-up with them as pedrito eduled on 02/21/2024. - Continue Keppra 1500 BID - Seizure precautions - Monitor (3) Hypertension: Qualifiers: Hypertension type: primary hypertension Qualified Code(s): I10 - Essential (primary) hypertension Code(s): I10 - Essential (primary) hypertension Status: Acute Assessment and Plan: BP have been consistently elevated with systolics ranging from the 150-160s. HR has been in the lower 60s. - Started on losartan 12.5 mg daily - Monitor (4) Meningioma: Code(s): D32.9 - Benign neoplasm of meninges, unspecified Status: Acute Assessment and Plan: Chronic. - Head CT: Left parasagittal calcified meningioma unchanged (5) Chronic kidney disease: Code(s): N18.9 - Chronic kidney disease, unspecified Status: Acute Assessment and Plan: BUN/Cr 19/1.1 on admission. Appears at baseline. 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 patient is pleasant lying comfortably in bed. We are still waiting on [facility] records for loop recorder to get a brain MRI. Discussed with patient and she states understands. She has no complaints at this time, denying weakness, numbness/tingling, chest pain, shortness of breath, nausea/vomiting and abdominal pain. She continues to have elevated blood pressures, will start her on a low dose losartan and monitor. Review of Systems Review of Systems: All systems reviewed & are unremarkable except as noted in HPI and below Exam Narrative: AF HR 63 RR 16 SpO2 93 BP 158/98 General: female in no acute respiratory distress who is nontoxic appearing, lying semi recumbent in bed. HEENT: Normocephalic. Atraumatic. Extraocular movement intact. Sclera clear and anicteric. No facial asymmetry. Chest: Lungs are clear to auscultation bilaterally. No wheezes or crackles. CV: Heart was regular rate and rhythm. S1-S2. No murmurs, gallops, or rubs. Abd: Abdomen was soft. Nontender. Nondistended. Positive bowel sounds. No organomegaly or masses. Ext: No clubbing, cyanosis, or edema. 2+ DP pulses bilaterally. Neuro: Patient is alert and oriented x4. Expressive aphasia, chronic from chart review. Strength is 5/5 in both upper and lower extremities with push/pulls. No upper extremity drift. Cranial nerves 2-12 are intact. Speech is clear. Objective Data Vital Signs Vital Signs: Vital Signs - 24 hr 02/04/24 11:32 02/04/24 11:32 02/04/24 11:35 Temperature 98.2 F 98.2 F Pulse Rate 65 65 74 Respiratory Rate 18 18 Blood Pressure 159/90 H 159/90 H 148/93 H Pulse Oximetry 96 96 97 Oxygen Delivery 02/04/24 11:35 02/04/24 11:38 02/04/24 12:00 Temperature Pulse Rate 74 79 71 Respiratory Rate Blood Pressure 148/93 H 161/96 H Pulse Oximetry 97 96 Oxygen Delivery 02/04/24 14:25 02/04/24 16:00 02/04/24 20:00 Temperature 97.7 F 98.3 F Pulse Rate 74 69 67 Respiratory Rate 16 30 H Blood Pressure 174/94 H 159/80 H Pulse Oximetry 95 97 Oxygen Delivery 02/04/24 20:28 02/04/24 20:28 02/04/24 20:00 Temperature Pulse Rate 77 79 Respiratory Rate Blood Pressure 144/92 H 154/104 H Pulse Oximetry 97 97 Oxygen Delivery Room Air 02/05/24 00:00 02/04/24 20:00 02/05/24 00:00 Temperature 99 F Pulse Rate 65 78 71 Respiratory Rate 16 Blood Pressure 176/91 H Pulse Oximetry 94 Oxygen Delivery 02/05/24 04:00 02/05/24 04:00 02/05/24 08:07 Temperature 98 F Pulse Rate 66 63 Respiratory Rate 16 Blood Pressure 165/88 H Pulse Oximetry 95 Oxygen Delivery Room Air Intake/Output Intake/Output: Intake & Output 02/02/24 02/03/24 02/04/24 02/05/24 23:59 23:59 23:59 22:59 Intake Total 980 Output Total 850 525 Balance 130 -525 Meds/Results Medications: Active Medications Generic Name Dose Route Start Last Admin Trade Name Freq PRN Reason Stop Dose Admin Atorvastatin Calcium 80 mg 02/04/24 21:00 02/04/24 21:07 Atorvastatin 40 Mg Tablet PO 80 mg HS PEDRITO Administration Buspirone HCl 15 mg 02/04/24 09:00 02/04/24 16:19 Buspirone Hcl 5 Mg Tablet PO 15 mg TID PEDRITO Administration Citalopram Hydrobromide 20 mg 02/04/24 09:00 02/04/24 08:16 Citalopram Hydrobromide 20 Mg Tablet PO 20 mg DAILY PEDRITO Administration Enoxaparin Sodium 30 mg 02/05/24 09:00 Enoxaparin 30 Mg/0.3 Ml Syringe SUB-Q DAILY [facility] Ferrous Sulfate 325 mg 02/04/24 09:00 02/04/24 16:19 Ferrous Sulfate [address] BY MOUTH 325 mg BID PEDRITO Administration Levetiracetam 1,500 mg 02/04/24 09:00 02/04/24 21:07 Levetiracetam 500 Mg Tablet PO 1,500 mg Q12HR PEDRITO Administration Misoprostol 200 mcg 02/04/24 08:00 02/04/24 08:17 Misoprostol 200 Mcg Tablet PO 200 mcg DAILY@0800 PEDRITO Administration Pantoprazole Sodium 40 mg 02/04/24 09:00 02/04/24 16:19 Pantoprazole 40 Mg Tablet PO 40 mg BID PEDRITO Administration Potassium Bicarbonate 25 meq 02/04/24 09:00 02/04/24 16:19 Potassium Bicarbonate 25 Meq Tabef PO 25 meq BID PEDRITO Administration Pyridoxine HCl 100 mg 02/04/24 09:00 02/04/24 08:17 Pyridoxine Hcl 50 Mg Tablet PO 100 mg QAM PEDRITO Administration Sucralfate 1,000 mg 02/04/24 07:00 02/04/24 21:08 Sucralfate Susp 100 Mg/Ml 10 Ml Udc PO 1,000 mg 0700,1100,1600,2100 PEDRITO Administration Radiology Results: ITS Impressions Chest X-Ray 02/03/24 21:19 IMPRESSION: No acute cardiopulmonary pathology. Head CT 02/03/24 22:07 IMPRESSION: No acute intracranial findings. Left parasagittal calcified meningioma unchanged. 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 Head/Neck CTA 02/04/24 11:47 IMPRESSION: 1. Minimal atherosclerotic plaque with 0% stenosis of the right and left carotid bulbs relative to normal distal artery lumen diameter (NASCET criteria). 2. 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 No cerebral artery hemodynamic significant stenosis or thrombosis. Labs Labs: Laboratory Results - last 24 hr 02/05/24 06:07 WBC 4.7 RBC 4.58 Hgb 12.1 Hct 37.2 MCV 81.2 MCH 26.4 MCHC 32.5 RDW 25.5 H Plt Count 178 MPV 10.3 Immature Gran % (Auto) 0.2 Neut % (Auto) 55.0 Lymph % (Auto) 30.6 [place] % (Auto) 11.3 H Eos % (Auto) 2.1 Baso % (Auto) 0.8 Lymph # (Auto) 1.44 [place] # (Auto) 0.5 Eos # (Auto) 0.1 Baso # (Auto) 0.0 Abs Immat Gran (auto) 0.01 Absolute Neuts (auto) 2.6 Absolute Nucleated RBC 0.000 Nucleated RBC % 0.0 Platelet Estimate Adequate Poikilocytosis 1+ Anisocytosis 2+ Acanthocytes (Spur) 1+ Schistocytes 1+ Sodium 137 Potassium 4.2 Chloride 104 Carbon Dioxide 26 Anion Gap 7 BUN 18 H Creatinine 1.20 H Estim Creat Clear Calc 26 Estimated GFR 43 L Glucose 90 Calcium 9.0 Total Bilirubin 0.4 AST 27 ALT 39 H Alkaline Phosphatase 82 Total Protein 7.0 Albumin 3.6 Quality VTE Prophylaxis VTE prophylaxis: pharmacologic ordered
[2024-02-05] MEDS: levETIRAcetam 500 MG TABLET 1500 MG PO ×2 (08:50→20:56)
[2024-02-05] MEDS: busPIRone HCL 5 MG TABLET 15 MG PO ×3 (08:50→17:24)
[2024-02-05] MEDS: PANTOPRAZOLE 40 MG TABLET PO ×2 (08:50→17:25)
[2024-02-05] MEDS: PYRIDOXINE HCL 50 MG TABLET 100 MG PO (08:50)
[2024-02-05] MEDS: FERROUS SULFATE 325 MG TABLET DR BY MOUTH ×2 (08:50→17:25)
[2024-02-05] MEDS: SUCRALFATE SUSP 100 MG/ML 10 ML UDC 1000 MG PO ×4 (08:50→20:56)
[2024-02-05] MEDS: POTASSIUM BICARBONATE 25 MEQ TABEF PO ×2 (08:50→17:25)
[2024-02-05] MEDS: CITALOPRAM HYDROBROMIDE 20 MG TABLET PO (08:50)
[2024-02-05] MEDS: miSOPROStol 200 MCG TABLET PO (08:50)
[2024-02-05] MEDS: ENOXAPARIN 30 MG/0.3 ML SYRINGE SUB-Q (08:50)
[2024-02-05] MEDS: ATORVASTATIN 40 MG TABLET 80 MG PO (20:56)
[2024-02-06] VITALS (12 sets, daily range): BP systolic 107–181; BP diastolic 65–92; PULSE 61–86; RESP 14–24; TEMP 36.4–37; O2SAT 94–99
[2024-02-06] MEDS: hydrALAZINE HCL 20 MG/ML VIAL 10 MG IV PUSH (05:59)
--- NOTE | 2024-02-06 06:25 | ECG_ITS ---
Test Date: 2024-02-06 06:31:26 Measurements Intervals Rudd Rate: 80 P: 51 AR: 157 QRS: 33 QRSD: 88 T: 63 QT: 380 QTc: 439 Interpretive Statements SINUS RHYTHM DELAYED PRECORDIAL R/S TRANSITION ST-T WAVE ABNORMALITY IN INF/LAT LEADS- CONSIDER ISCHEMIA BASELINE ARTIFACT- II, III, AVF, V1-V3 ABNORMAL ECG Compared to ECG 02/03/2024 22:46:35 HEART RATE HAS INCREASED Electronically Signed On 02-06-2024 08:06:56 [employer] SUPER[employer] by Cristian Joya D.O.
[2024-02-06 07:12] LABS: Basophils Absolute Auto 0.1 K/mm3 (0.0-0.1); Basophils Percent Auto 1.2 % (0.2-1.2); Eosinophils Absolute Auto 0.1 K/mm3 (0-0.3); Eosinophils Percent Auto 1.9 % (0-4.4); Hemoglobin 12.1 g/dL (12.0-15.0); Immature Granulocyte Absolute 0.01 K/mm3 (0.00-0.031); Immature Granulocyte Percent A 0.2 % (0-0.5); Immature Platelet Fraction Pct 6.2 % (0.9-11.2); Lymphocytes Absolute Auto 1.47 K/mm3 (0.9-3.2); Lymphocytes Percent Auto 28.4 % (18.3-44.2); Mean Corpuscular HGB Conc 31.8 g/dl (32-36); Mean Corpuscular Volume 81.5 fl (80-100); Monocytes Absolute Auto 0.4 K/mm3 (0.1-0.6); Monocytes Percent Auto 8.1 % (2.6-8.5); Neutrophils Absolute Auto 3.1 K/mm3 (1.3-6.7); Neutrophils Percent Auto 60.2 % (45.5-73.1); Platelet Count Result 184 k/mm3 (150-375); Red Blood Count 4.66 M/mm3 (4.2-5.4); White Blood Count 5.2 K/mm3 (4.5-10.0)
[2024-02-06 07:22] LABS: Alanine Aminotransferase 37 U/L (6-35); Albumin Level 3.8 g/dL (3.5-5.1); Alkaline Phosphatase 84 U/L (38-126); Anion Gap 8 mmol/L (4-12); Aspartate Amino Transferase 28 U/L (14-36); Bilirubin,Total 0.4 mg/dL (0.2-1.3); Blood Urea Nitrogen 15 mg/dL (7-17); Calcium 9.1 mg/dL (8.4-10.2); Carbon Dioxide 22 mmol/L (22-30); Chloride 107 mmol/L (98-107); Estimated CRCL calculation 31 ml/min; Estimated Glomerular Filt Rate 53; Glucose 88 mg/dL (65-110); Potassium 4.2 mmol/L (3.4-5.0); Sodium 137 mmol/L (137-145)
[2024-02-06 08:08] LABS: Anisocytosis 1+; Burr Cells 1+; Hypochromasia 1+; Large Platelets Present; Ovalocytes 1+; Platelet Estimate Adequate (Adequate)
[2024-02-06 08:09] LABS: Schistocytes Rare
--- NOTE | 2024-02-06 08:31 | P.PNIM_ITS ---
Progress Note: A&P Assessment and Plan (1) Altered mental status: Code(s): R41.82 - Altered mental status, unspecified Status: Acute Assessment and Plan: Per family, patient has been having frequent episodes where she becomes unresponsive though her eyes were open she was not following commands or tracking with her eyes. There were no reports of tremors, tongue bite, or incontinence. Once she started to respond, she was unable to answer questions appropriately. Family members are also concerned that she has be come more forgetful and has some personality changes, possibly related to underlying dementia. - Per chart review, ED physician spoke with the on-call neurologist at [facility]. At this time he does not recommend any changes in her levetiracetam and close monitoring overnight. She can follow-up with them as scheduled on 02/21/2024. 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 She gives no history to suggest underlying infection. No indication for antibiotics at this time. - Head CT: No acute intracranial findings. Left parasagittal calcified meningioma unchanged. 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 - Head/neck CTA: Minimal atherosclerotic plaque with 0% stenosis of the right and left carotid bulbs relative to normal distal artery lumen diameter (NASCET criteria). 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 No cerebral artery hemodynamic significant stenosis or thrombosis. - Brain MRI ordered waiting on [facility] records for loop recorder - Neuro consulted Discussed patient with neuro and she is to stay inpatient to have the Brain MRI performed to rule out worsening stroke vs postictal state She remains on keppra 1500 BID, she is to follow up with her neurologist in the outpatient setting for potential dose adjustments Due to patient prior CVA and new symptoms she is to be started on plavix 75 mg daily, no ASA given prior GI bleed (2) Seizure disorder: Code(s): G40.909 - Epilepsy, unspecified, not intractable, without status epilepticus Status: Acute Assessment and Plan: Chronic, follows neurology at [facility]. Appointment scheduled for 02/20. - Per chart review, ED physician spoke with the on-call neurologist at [facility]. At this time he does not recommend any changes in her levetiracetam and close monitoring overnight. She can follow-up with them as scheduled on 02/21/2024. - Continue Keppra 1500 BID - Seizure precautions - Monitor (3) Hypertension: Qualifiers: Hypertension type: primary hypertension Qualified Code(s): I10 - Essential (primary) hypertension Code(s): I10 - Essential (primary) hypertension Status: Acute Assessment and Plan: BP have been consistently elevated with systolics ranging from the 150-160s. HR has been in the lower 60s. - Started on losartan 25 mg mg daily - Monitor (4) Meningioma: Code(s): D32.9 - Benign neoplasm of meninges, unspecified Status: Acute Assessment and Plan: Chronic. - Head CT: Left parasagittal calcified meningioma unchanged (5) Chronic kidney disease: Code(s): N18.9 - Chronic kidney disease, unspecified Status: Acute Assessment and Plan: BUN/Cr 19/1.1 on admission. Appears at baseline. 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 Patient is pleasant lying comfortably in bed with her family at bedside. assessment was done with Neurology in the room. Patient had no complaints, denying chest pain, shortness a breath, nausea /vomiting, abdominal pain. Discussed patient with neuro and she is to stay inpatient to have the Brain MRI performed to rule out worsening stroke vs postictal state. She remains on keppra 1500 BID, she is to follow up with her neurologist in the outpatient setting for potential dose adjustments. Due to patient prior CVA and new symptoms she is to be started on plavix 75 mg daily, no ASA given prior GI bleed. Review of Systems Review of Systems: All systems reviewed & are unremarkable except as noted in HPI and below Exam Narrative: AF HR 86 RR 22 Spo2 97 BP 139/70 General: female in no acute respiratory distress who is nontoxic appearing, lying semi recumbent in bed. HEENT: Normocephalic. Atraumatic. Extraocular movement intact. Sclera clear and anicteric. No facial asymmetry. Chest: Lungs are clear to auscultation bilaterally. No wheezes or crackles. CV: Heart was regular rate and rhythm. S1-S2. No murmurs, gallops, or rubs. Abd: Abdomen was soft. Nontender. Nondistended. Positive bowel sounds. No organomegaly or masses. Ext: No clubbing, cyanosis, or edema. 2+ DP pulses bilaterally. Neuro: Patient is alert and oriented x4. Expressive aphasia, chronic from chart review. Strength is 5/5 in both upper and lower extremities with push/pulls. No upper extremity drift. Cranial nerves 2-12 are intact. Speech is clear. Objective Data Vital Signs Vital Signs: Vital Signs - 24 hr 02/05/24 08:40 02/05/24 12:24 02/05/24 16:00 Temperature 99.2 F Pulse Rate 67 Respiratory Rate 18 Blood Pressure 158/98 H 156/90 H Pulse Oximetry 93 94 Oxygen Delivery Room Air Fraction of Inspired Oxygen 21 02/05/24 20:00 02/05/24 20:00 02/05/24 20:05 Temperature 98.0 F Pulse Rate 62 62 67 Respiratory Rate 22 H Blood Pressure 178/92 H 178/92 H 147/95 H Pulse Oximetry 97 Oxygen Delivery Fraction of Inspired Oxygen 02/05/24 20:10 02/05/24 20:00 02/06/24 00:00 Temperature 97.6 F Pulse Rate 74 63 Respiratory Rate 18 Blood Pressure 161/87 H 153/82 H Pulse Oximetry 96 Oxygen Delivery Room Air Fraction of Inspired Oxygen 02/05/24 20:00 02/06/24 00:00 02/06/24 04:00 Temperature Pulse Rate 67 67 61 Respiratory Rate Blood Pressure Pulse Oximetry Oxygen Delivery Fraction of Inspired Oxygen 02/06/24 05:16 02/06/24 04:00 02/06/24 08:00 Temperature 97.6 F 97.6 F Pulse Rate 64 70 Respiratory Rate 18 24 H Blood Pressure 181/92 H 181/92 H 134/89 Pulse Oximetry 94 99 Oxygen Delivery Fraction of Inspired Oxygen Intake/Output Intake/Output: Intake & Output 02/04/24 02/05/24 02/05/24 02/06/24 00:59 00:59 23:59 23:59 Intake Total 100 Output Total 450 Balance -350 Meds/Results Medications: Active Medications Generic Name Dose Route Start Last Admin Trade Name Brandonq PRN Reason Stop Dose Admin Atorvastatin Calcium 80 mg 02/04/24 21:00 02/05/24 20:56 Atorvastatin 40 Mg Tablet PO 80 mg HS MADY Administration Buspirone HCl 15 mg 02/04/24 09:00 02/05/24 17:24 Buspirone Hcl 5 Mg Tablet PO 15 mg TID MADY Administration Citalopram Hydrobromide 20 mg 02/04/24 09:00 02/05/24 08:50 Citalopram Hydrobromide 20 Mg Tablet PO 20 mg DAILY MADY Administration Enoxaparin Sodium 30 mg 02/05/24 09:00 02/05/24 08:50 Enoxaparin 30 Mg/0.3 Ml Syringe SUB-Q 30 mg DAILY MADY Administration Ferrous Sulfate 325 mg 02/04/24 09:00 02/05/24 17:25 Ferrous Sulfate [address] BY MOUTH 325 mg BID MADY Administration Levetiracetam 1,500 mg 02/04/24 09:00 02/05/24 20:56 Levetiracetam 500 Mg Tablet PO 1,500 mg Q12HR MADY Administration Losartan Potassium 25 mg 02/06/24 09:00 Losartan Potassium 25 Mg Tablet PO DAILY [facility] Misoprostol 200 mcg 02/04/24 08:00 02/05/24 08:50 Misoprostol 200 Mcg Tablet PO 200 mcg DAILY@0800 MADY Administration Pantoprazole Sodium 40 mg 02/04/24 09:00 02/05/24 17:25 Pantoprazole 40 Mg Tablet PO 40 mg BID MADY Administration Potassium Bicarbonate 25 meq 02/04/24 09:00 02/05/24 17:25 Potassium Bicarbonate 25 Meq Tabef PO 25 meq BID MADY Administration Pyridoxine HCl 100 mg 02/04/24 09:00 02/05/24 08:50 Pyridoxine Hcl 50 Mg Tablet PO 100 mg QAM MADY Administration Sucralfate 1,000 mg 02/04/24 07:00 02/05/24 20:56 Sucralfate Susp 100 Mg/Ml 10 Ml Udc PO 1,000 mg 0700,1100,1600,2100 MADY Administration Radiology Results: ITS Impressions Chest X-Ray 02/03/24 21:19 IMPRESSION: No acute cardiopulmonary pathology. Head CT 02/03/24 22:07 IMPRESSION: No acute intracranial findings. Left parasagittal calcified meningioma unchanged. 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 Head/Neck CTA 02/04/24 11:47 IMPRESSION: 1. Minimal atherosclerotic plaque with 0% stenosis of the right and left carotid bulbs relative to normal distal artery lumen diameter (NASCET criteria). 2. 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 No cerebral artery hemodynamic significant stenosis or thrombosis. Labs Labs: Laboratory Results - last 24 hr 02/06/24 06:26 WBC 5.2 RBC 4.66 Hgb 12.1 Hct 38.0 MCV 81.5 MCH 26.0 MCHC 31.8 L RDW TNP Plt Count 184 MPV TNP Immature Gran % (Auto) 0.2 Neut % (Auto) 60.2 Lymph % (Auto) 28.4 [place] % (Auto) 8.1 Eos % (Auto) 1.9 Baso % (Auto) 1.2 Lymph # (Auto) 1.47 [place] # (Auto) 0.4 Eos # (Auto) 0.1 Baso # (Auto) 0.1 Abs Immat Gran (auto) 0.01 Absolute Neuts (auto) 3.1 Absolute Nucleated RBC 0.000 Nucleated RBC % 0.0 Platelet Estimate Adequate Large Platelets Present % Immature Plt Fraction 6.2 Hypochromasia 1+ Anisocytosis 1+ Ovalocytes 1+ [place] Cells 1+ Schistocytes Rare Sodium 137 Potassium 4.2 Chloride 107 Carbon Dioxide 22 Anion Gap 8 BUN 15 Creatinine 1.00 Estim Creat Clear Calc 31 Estimated GFR 53 L Glucose 88 Calcium 9.1 Total Bilirubin 0.4 AST 28 ALT 37 H Alkaline Phosphatase 84 Total Protein 7.0 Albumin 3.8 Quality VTE Prophylaxis VTE prophylaxis: pharmacologic ordered
[2024-02-06] MEDS: PANTOPRAZOLE 40 MG TABLET PO ×2 (08:32→17:30)
[2024-02-06] MEDS: POTASSIUM BICARBONATE 25 MEQ TABEF PO ×2 (08:32→17:30)
[2024-02-06] MEDS: busPIRone HCL 5 MG TABLET 15 MG PO ×3 (08:32→17:30)
[2024-02-06] MEDS: miSOPROStol 200 MCG TABLET PO (08:32)
[2024-02-06] MEDS: ENOXAPARIN 30 MG/0.3 ML SYRINGE SUB-Q (08:32)
[2024-02-06] MEDS: FERROUS SULFATE 325 MG TABLET DR BY MOUTH ×2 (08:32→17:30)
[2024-02-06] MEDS: PYRIDOXINE HCL 50 MG TABLET 100 MG PO (08:32)
[2024-02-06] MEDS: SUCRALFATE SUSP 100 MG/ML 10 ML UDC 1000 MG PO ×4 (08:32→20:24)
[2024-02-06] MEDS: CITALOPRAM HYDROBROMIDE 20 MG TABLET PO (08:32)
[2024-02-06] MEDS: levETIRAcetam 500 MG TABLET 1500 MG PO ×2 (08:32→20:24)
[2024-02-06] MEDS: LOSARTAN POTASSIUM 25 MG TABLET PO (08:44)
--- NOTE | 2024-02-06 17:55 | P.CONNEU_ITS ---
Assessment and Plan Assessment and plan (1) Seizure disorder: Code(s): G40.909 - Epilepsy, unspecified, not intractable, without status epilepticus Status: Acute (2) Left-sided cerebrovascular accident (CVA): Code(s): I63.9 - Cerebral infarction, unspecified Status: Acute Assessment and Plan: she has a large infarct in the left middle cerebral artery distribution read residual mixed aphasia predominantly expressive features (3) Meningioma: Code(s): D32.9 - Benign neoplasm of meninges, unspecified Status: Acute (4) Expressive aphasia: Code(s): R47.01 - Aphasia Status: Acute (5) Chronic kidney disease: Code(s): N18.9 - Chronic kidney disease, unspecified Status: Acute Plan The question is whether she is having epileptic aphasia or aphasia due to extension of the stroke and I agree that an MRI would be the best way to resolve this question. In the meanwhile I agree with adding Plavix since there is a question about use of aspirin can lead to some issue since he has had some surgery in the stomach. That would certainly give her some more protection from the stroke point of view. She should be on a statin. As anticonvulsants he is already on Keppra 1500 mg twice a day and seems to be stable and with regard to adding another drug or increasing Keppra to 3500 mg a day I discussed with this with the hospitalist and the in discussion with the [facility] and I certainly this up to them and if I could be of any further assistance here I shall be glad to assist. We are waiting to clear from the Cardiology whether she can have an MRI while the loop recorder is in place however the CT scan of the brain did not show any new infarcts or extension of the infarct and the CT angiogram of the head and neck did not show any large vessel occlusion. Patient is already on atorvastatin 80 mg a day however I have ordered a lipid profile, B12 and folic acid level and vitamin-D level and Keppra level. Consult date: 02/06/24 HPI: Nicole Patricia is a 83 year old female with history seizures and left CVA with residual aphasia admitted to the hospital with possible seizure-like spells. She is having spells where she suddenly loses a speech and thereafter that it seems to come back. She is known to have a calcified large meningioma in the left parasagittal region. In addition there is also a large area of ence phalomalacia in the left middle cerebral artery distribution. She is also known to have chronic kidney disease and she follows up at to [facility]. She is on Keppra 3000 mg a day. The emergency room as well as the hospitalist has contacted over there and they decided to continue on the same medications. They did suggest an MRI of the brain and to add Plavix since the possibility of extension of the stroke does exist. I agree with that. The MRI is on hold because there is a question regarding since he had a loop recorder in place and whether it is safe for her to have that done or not his. The loop recorder is also under care of brass molder helper at [facility] and the nursing staff were trying to clear that from them. In the meanwhile the patient is a on the floor and is stable although she has had a few spells every now and then. Patient's family members were present and 1 of the daughter also subsequently ostomy if the mother is getting some dementia and I told her that since he had speech problems it may be difficult to decide on a single evalu ation. Also at this time the real question is that he see having extension of the stroke or is he having epileptic aphasia. In either case giving antiplatelets or extending the antiseizure therapy could be an option Review of Systems Review of Systems: All systems reviewed & are unremarkable except as noted in HPI and below PMFSH Past Medical History Medical History (Updated 02/06/24 @ 18:03 by Hima Watts MD) Atrophy of left kidney Chronic kidney disease Expressive aphasia Gastrojejunal ulcer with hemorrhage History of gastroscopy 08/18/09, 09/09/09, with structure Hypertension Iron (Fe) deficiency anemia Ischemic cerebrovascular accident (CVA) (08/14/20) Treated with tPA and thrombectomy Left-sided cerebrovascular accident (CVA) Meningioma Seizure disorder Urinary incontinence Vaginal delivery 1960, , full term, female, 7#10 1969, , full term, female, 7#10 Surgical History Surgical History H/O rectal polypectomy 11/13/08, 08/27/03 H/O right heart catheterization 12/17/08 unsure if lt or rt History of breast biopsy 3/8/11, stereotactic, biopsy rt breast History of cholecystectomy 05/09/09 History of endoscopy 12/16/09, 02/10/10, 08/25/10, 04/26/18 History of esophagogastroduodenoscopy (EGD) 04/25/12, with upper GI History of eye surgery 11/05/14 cataract right eye, 11/20/14 cataract left eye, 07/28/18 bilateral removal of scar tissue 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ing MARCUS L4-5, L3-4, Doscectomy/fusion lt iliac crest graft 10/12/01 cervical discectomy and fusion of c6-7 History of spinal surgery 02/10/16 lumbar decompressive laminectomy, transformal lumbar interbody fusion with PEEK spacers, posterior intertransverse fusion, posterior spinal instrumentation, harvesting bone graft History of stress incontinence procedure using tension free vaginal tape 05/18/01 Hx of breast surgery 07/27/10, mastopexy Family History Family History Grandparent Family history of malignant neoplasm of ovary Father Family history of lung cancer Sibling Family history of lung cancer Social History Social History Social History: Surrogate medical decision maker: Pavithra Vargas ([phone]), daughter. Code status: Full code. Smoking status: Never smoker Alcohol intake: never Substance use: never Substance use type: does not use Do You Feel Safe in your Home?: Yes Lack of Transportation: No Lack of Food: Never True Current Housing: I Have Housing Concerned About Future Housing: No Difficulty Paying Gas/Electric Bills: No Difficulty Paying for Meds: No Currently Unemployed: No Education: High School Diploma/GED Difficulty w/ Childcare or Family Care: No Living arrangements: with family Additional living arrangements comments: with 2 children. She lives with her significant other in [place]. 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 Spiritual care concerns: No Meds Home Medications and Allergies Home Medications Medication Instructions Recorded Confirmed Type misoprostol 200 mcg tablet 200 mcg PO DAILY 11/05/19 02/04/24 History atorvastatin 80 mg tablet 80 mg PO HS 08/29/20 02/04/24 History citalopram 20 mg tablet 20 mg PO DAILY 05/11/22 02/04/24 History levetiracetam 1,000 mg tablet 1,500 mg PO BID 05/11/22 02/04/24 History buspirone 15 mg tablet 15 mg PO TID 01/04/23 02/04/24 History pyridoxine (vitamin B6) 100 mg 100 mg PO DAILY 01/04/23 02/04/24 History tablet ferrous sulfate 325 mg (65 mg 325 mg PO BID #60 tabs 05/20/23 02/04/24 Rx iron) tablet sucralfate 100 mg/mL oral 1,000 mg (10 mL) PO ACHS #1,000 mL 05/20/23 02/04/24 Rx suspension pantoprazole 40 mg tablet,delayed 40 mg PO BID #60 tabs 07/09/23 02/04/24 Rx release potassium bicarbonate-citric acid 25 meq PO BID 02/04/24 02/04/24 History 25 mEq effervescent tablet (Effer-K) Allergies Allergy/AdvReac Type Severity Reaction Status Date / Time naproxen Allergy Severe cardiac Verified 07/05/23 18:14 arrest NSAIDS (Non-Steroidal Allergy Severe cardiac Verified 07/05/23 18:14 Anti-Inflamma arrest morphine Allergy Mild unknown Verified 07/05/23 18:14 Vital Signs Vital Signs - 24 hr 02/05/24 20:00 02/05/24 20:00 02/05/24 20:05 Temperature 98.0 F Pulse Rate 62 62 67 Respiratory Rate 22 H Blood Pressure 178/92 H 178/92 H 147/95 H Pulse Oximetry 97 Oxygen Delivery 02/05/24 20:10 02/05/24 20:00 02/06/24 00:00 Temperature 97.6 F Pulse Rate 74 63 Respiratory Rate 18 Blood Pressure 161/87 H 153/82 H Pulse Oximetry 96 Oxygen Delivery Room Air 02/05/24 20:00 02/06/24 00:00 02/06/24 04:00 Temperature Pulse Rate 67 67 61 Respiratory Rate Blood Pressure Pulse Oximetry Oxygen Delivery 02/06/24 05:16 02/06/24 04:00 02/06/24 08:00 Temperature 97.6 F 97.6 F Pulse Rate 64 70 Respiratory Rate 18 24 H Blood Pressure 181/92 H 181/92 H 134/89 Pulse Oximetry 94 99 Oxygen Delivery 02/06/24 08:00 02/06/24 12:00 02/06/24 11:09 Temperature 97.9 F 98.0 F Pulse Rate 81 86 Respiratory Rate 14 22 H Blood Pressure 145/78 H 139/70 107/65 Pulse Oximetry 97 97 Oxygen Delivery 02/06/24 11:09 02/06/24 08:03 02/06/24 12:02 Temperature Pulse Rate 70 78 Respiratory Rate Blood Pressure 109/65 Pulse Oximetry Oxygen Delivery 02/06/24 08:00 Temperature Pulse Rate Respiratory Rate Blood Pressure Pulse Oximetry Oxygen Delivery Room Air Exam Narrative: fully conscious alert. Patient appears to have mild mixed aphasia more predominant expressive aphasia. She is unable to follow two-step commands. She does seem to be trying follow. Visual kwok could not reliably performed. No evidence of external head trauma. Nuchal rigidity. No carotid bruit. No facial asymmetry. Was midline. Motor system normal power in both upper and lower limbs. No involuntary movements seen. Deep tendon reflexes did not show any significant asymmetry. Plantars were downgoing. Sensory is grossly intact. Results Labs 02/06/24 06:26 02/06/24 06:26 Labs: Short CBC 02/06/24 Range/Units 06:26 WBC 5.2 (4.5-10.0) K/mm3 Hgb 12.1 (12.0-15.0) g/dL Hct 38.0 (37.0-47.0) % Plt Count 184 (150-375) k/mm3 BMP 02/06/24 06:26 Sodium 137 Potassium 4.2 Chloride 107 Carbon Dioxide 22 BUN 15 Creatinine 1.00 Glucose 88 Calcium 9.1 Liver Function 02/06/24 Range/Units 06:26 Total Bilirubin 0.4 (0.2-1.3) mg/dL AST 28 (14-36) U/L ALT 37 H (6-35) U/L Alkaline Phosphatase 84 (38-126) U/L Albumin 3.8 (3.5-5.1) g/dL Imaging Attestation: I personally reviewed and interpreted this imaging study as follows: ( CT scan of the brain and CT angiogram of the head and neck) My impression: Sagittal meningioma with calcification and a large area of encephalomalacia in the left middle cerebral artery distribution noted Radiologist's impression: same as above
[2024-02-06 20:15] LABS: Cholesterol 127 mg/dL (0-200); HDL Direct 78 mg/dL; Triglycerides 45 mg/dL (<150)
[2024-02-06] MEDS: ATORVASTATIN 40 MG TABLET 80 MG PO (20:24)
[2024-02-06 20:27] LABS: LDL Cholesterol Direct 31 mg/dL
[2024-02-06 20:35] LABS: Vitamin D 25 Hydroxy 44.9 ng/mL
[2024-02-06 21:23] LABS: Folic Acid 5.3 ng/mL (2.76->20)
[2024-02-07] VITALS (10 sets, daily range): BP systolic 119–165; BP diastolic 63–100; PULSE 61–75; RESP 16–18; TEMP 36.2–36.9; O2SAT 98–99
[2024-02-07] MEDS: SUCRALFATE SUSP 100 MG/ML 10 ML UDC 1000 MG PO ×4 (06:19→20:33)
[2024-02-07 06:31] LABS: Basophils Percent Auto 0.7 % (0.2-1.2); Eosinophils Absolute Auto 0.1 K/mm3 (0-0.3); Hematocrit 36.6 % (37.0-47.0); Hemoglobin 11.9 g/dL (12.0-15.0); Immature Platelet Fraction Pct 6.4 % (0.9-11.2); Lymphocytes Absolute Auto 1.13 K/mm3 (0.9-3.2); Lymphocytes Percent Auto 25.5 % (18.3-44.2); Mean Corpuscular HGB Conc 32.5 g/dl (32-36); Mean Corpuscular Hemoglobin 26.9 pg (26-34); Mean Corpuscular Volume 82.6 fl (80-100); Mean Platelet Volume 10.7 fl (7.4-10.4); Monocytes Absolute Auto 0.5 K/mm3 (0.1-0.6); Monocytes Percent Auto 10.4 % (2.6-8.5); Neutrophils Absolute Auto 2.7 K/mm3 (1.3-6.7); Neutrophils Percent Auto 61.4 % (45.5-73.1); Platelet Count Result 167 k/mm3 (150-375); Red Blood Count 4.43 M/mm3 (4.2-5.4); White Blood Count 4.4 K/mm3 (4.5-10.0)
[2024-02-07 06:42] LABS: Alanine Aminotransferase 33 U/L (6-35); Albumin Level 3.6 g/dL (3.5-5.1); Alkaline Phosphatase 82 U/L (38-126); Anion Gap 7 mmol/L (4-12); Aspartate Amino Transferase 27 U/L (14-36); Bilirubin,Total 0.5 mg/dL (0.2-1.3); Blood Urea Nitrogen 16 mg/dL (7-17); Calcium 8.9 mg/dL (8.4-10.2); Carbon Dioxide 24 mmol/L (22-30); Chloride 104 mmol/L (98-107); Estimated CRCL calculation 26 ml/min; Estimated Glomerular Filt Rate 43; Glucose 87 mg/dL (65-110); Potassium 4.1 mmol/L (3.4-5.0); Sodium 135 mmol/L (137-145)
[2024-02-07] MEDS: PANTOPRAZOLE 40 MG TABLET PO ×2 (08:25→16:30)
[2024-02-07] MEDS: PYRIDOXINE HCL 50 MG TABLET 100 MG PO (08:25)
[2024-02-07] MEDS: CLOPIDOGREL BISULFATE 75 MG TABLET PO (08:25)
[2024-02-07] MEDS: CITALOPRAM HYDROBROMIDE 20 MG TABLET PO (08:25)
[2024-02-07] MEDS: LOSARTAN POTASSIUM 25 MG TABLET PO (08:26)
[2024-02-07] MEDS: ENOXAPARIN 30 MG/0.3 ML SYRINGE SUB-Q (08:26)
[2024-02-07] MEDS: POTASSIUM BICARBONATE 25 MEQ TABEF PO ×2 (08:26→16:30)
[2024-02-07] MEDS: busPIRone HCL 5 MG TABLET 15 MG PO ×3 (08:26→16:30)
[2024-02-07] MEDS: levETIRAcetam 500 MG TABLET 1500 MG PO ×2 (08:26→20:33)
[2024-02-07] MEDS: FERROUS SULFATE 325 MG TABLET DR BY MOUTH ×2 (08:26→16:30)
[2024-02-07] MEDS: miSOPROStol 200 MCG TABLET PO (08:26)
--- NOTE | 2024-02-07 08:49 | P.PNIM_ITS ---
Progress Note: A&P Assessment and Plan (1) Altered mental status: Code(s): R41.82 - Altered mental status, unspecified Status: Acute Assessment and Plan: Per family, patient has been having frequent episodes where she becomes unresponsive though her eyes were open she was not following commands or tracking with her eyes. There were no reports of tremors, tongue bite, or incontinence. Once she started to respond, she was unable to answer questions appropriately. Family members are also concerned that she has be come more forgetful and has some personality changes, possibly related to underlying dementia. - Per chart review, ED physician spoke with the on-call neurologist at [facility]. At this time he does not recommend any changes in her levetiracetam and close monitoring overnight. She can follow-up with them as scheduled on 02/21/2024. 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 She gives no history to suggest underlying infection. No indication for antibiotics at this time. - Head CT: No acute intracranial findings. Left parasagittal calcified meningioma unchanged. 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 - Head/neck CTA: Minimal atherosclerotic plaque with 0% stenosis of the right and left carotid bulbs relative to normal distal artery lumen diameter (NASCET criteria). 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 No cerebral artery hemodynamic significant stenosis or thrombosis. - Brain MRI ordered waiting on [facility] records for loop recorder - Neuro consulted Discussed patient with neuro and she is to stay inpatient to have the Brain MRI performed to rule out epileptic aphasia or aphasia due to extension of the stroke She remains on keppra 1500 BID, she is to follow up with her neurologist in the outpatient setting for potential dose adjustments Due to patient prior CVA and new symptoms she is to be started on plavix 75 mg daily, no ASA given prior GI bleed (2) Seizure disorder: Code(s): G40.909 - Epilepsy, unspecified, not intractable, without status epilepticus Status: Acute Assessment and Plan: Chronic, follows neurology at [facility]. Appointment scheduled for 02/20. - Per chart review, ED physician spoke with the on-call neurologist at [facility]. At this time he does not recommend any changes in her levetiracetam and close monitoring overnight. She can follow-up with them as scheduled on 02/21/2024. - Continue Keppra 1500 BID - Seizure precautions - Monitor (3) Hypertension: Qualifiers: Hypertension type: primary hypertension Qualified Code(s): I10 - Essential (primary) hypertension Code(s): I10 - Essential (primary) hypertension Status: Acute Assessment and Plan: BP have been consistently elevated with systolics ranging from the 150-160s. HR has been in the lower 60s. - Started on losartan 25 mg mg daily - Monitor (4) Meningioma: Code(s): D32.9 - Benign neoplasm of meninges, unspecified Status: Acute Assessment and Plan: Chronic. - Head CT: Left parasagittal calcified meningioma unchanged (5) Chronic kidney disease: Code(s): N18.9 - Chronic kidney disease, unspecified Status: Acute Assessment and Plan: BUN/Cr 19/1.1 on admission. Appears at baseline. 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 Patient is pleasant lying comfortably in bed. She has no complaints at this time denying chest pain, shortness a breath, nausea/ vomiting, and abdominal pain. Records were received from [facility] today, however per MRI they do not give the information required about the loop recorder. Neurology is wanting patient to have the MRI done while here. Discussed with RN and he is calling [facility] again to obtain the correct records. Review of Systems Review of Systems: All systems reviewed & are unremarkable except as noted in HPI and below Exam Narrative: AF HR 67 RR 16 SpO2 98 BP 119/63 General: female in no acute respiratory distress who is nontoxic appearing, lying semi recumbent in bed. HEENT: Normocephalic. Atraumatic. Extraocular movement intact. Sclera clear and anicteric. No facial asymmetry. Chest: Lungs are clear to auscultation bilaterally. No wheezes or crackles. CV: Heart was regular rate and rhythm. S1-S2. No murmurs, gallops, or rubs. Abd: Abdomen was soft. Nontender. Nondistended. Positive bowel sounds. No organomegaly or masses. Ext: No clubbing, cyanosis, or edema. 2+ DP pulses bilaterally. Neuro: Patient is alert and oriented x4. Expressive aphasia, chronic from chart review. Strength is 5/5 in both upper and lower extremities with push/pulls. No upper extremity drift. Cranial nerves 2-12 are intact. Objective Data Vital Signs Vital Signs: Vital Signs - 24 hr 02/06/24 12:00 02/06/24 11:09 02/06/24 11:09 Temperature 98.0 F Pulse Rate 86 Respiratory Rate 22 H Blood Pressure 139/70 107/65 109/65 Pulse Oximetry 97 Oxygen Delivery 02/06/24 12:02 02/06/24 16:03 02/06/24 20:00 Temperature 98.6 F Pulse Rate 78 70 65 Respiratory Rate 22 H Blood Pressure 160/92 H Pulse Oximetry 99 Oxygen Delivery 02/06/24 20:00 02/06/24 20:05 02/06/24 20:10 Temperature Pulse Rate Respiratory Rate Blood Pressure 160/92 H 156/92 H 150/90 H Pulse Oximetry Oxygen Delivery 02/06/24 20:00 02/06/24 20:00 02/07/24 00:00 Temperature Pulse Rate 66 69 Respiratory Rate Blood Pressure Pulse Oximetry Oxygen Delivery Room Air 02/07/24 04:00 02/07/24 04:00 02/07/24 08:00 Temperature 98.5 F Pulse Rate 61 65 Respiratory Rate 18 Blood Pressure 160/91 H 153/86 H Pulse Oximetry 99 Oxygen Delivery 02/07/24 08:00 02/07/24 08:06 02/07/24 08:06 Temperature 98.2 F Pulse Rate 68 Respiratory Rate 16 Blood Pressure 153/86 H 147/83 H 138/100 H Pulse Oximetry 98 Oxygen Delivery Intake/Output Intake/Output: Intake & Output 02/05/24 02/05/24 02/06/24 02/07/24 00:59 23:59 23:59 23:59 Intake Total 817 0 Output Total 450 1100 Balance 367 -1100 Meds/Results Medications: Active Medications Generic Name Dose Route Start Last Admin Trade Name Freq PRN Reason Stop Dose Admin Atorvastatin Calcium 80 mg 02/04/24 21:00 02/06/24 20:24 Atorvastatin 40 Mg Tablet PO 80 mg HS MADY Administration Buspirone HCl 15 mg 02/04/24 09:00 02/07/24 08:26 Buspirone Hcl 5 Mg Tablet PO 15 mg TID MADY Administration Citalopram Hydrobromide 20 mg 02/04/24 09:00 02/07/24 08:25 Citalopram Hydrobromide 20 Mg Tablet PO 20 mg DAILY MADY Administration Clopidogrel Bisulfate 75 mg 02/07/24 09:00 02/07/24 08:25 Clopidogrel Bisulfate 75 Mg Tablet PO 75 mg QAM MADY Administration Enoxaparin Sodium 30 mg 02/05/24 09:00 02/07/24 08:26 Enoxaparin 30 Mg/0.3 Ml Syringe SUB-Q 30 mg DAILY MADY Administration Ferrous Sulfate 325 mg 02/04/24 09:00 02/06/24 17:30 Ferrous Sulfate [address] BY MOUTH 325 mg BID MADY Administration Levetiracetam 1,500 mg 02/04/24 09:00 02/07/24 08:26 Levetiracetam 500 Mg Tablet PO 1,500 mg Q12HR MADY Administration Losartan Potassium 25 mg 02/06/24 09:00 02/07/24 08:26 Losartan Potassium 25 Mg Tablet PO 25 mg DAILY MADY Administration Misoprostol 200 mcg 02/04/24 08:00 02/07/24 08:26 Misoprostol 200 Mcg Tablet PO 200 mcg DAILY@0800 MADY Administration Pantoprazole Sodium 40 mg 02/04/24 09:00 02/07/24 08:25 Pantoprazole 40 Mg Tablet PO 40 mg BID MADY Administration Potassium Bicarbonate 25 meq 02/04/24 09:00 02/07/24 08:26 Potassium Bicarbonate 25 Meq Tabef PO 25 meq BID MADY Administration Pyridoxine HCl 100 mg 02/04/24 09:00 02/07/24 08:25 Pyridoxine Hcl 50 Mg Tablet PO 100 mg QAM MADY Administration Sucralfate 1,000 mg 02/04/24 07:00 02/07/24 06:19 Sucralfate Susp 100 Mg/Ml 10 Ml Udc PO 1,000 mg 0700,1100,1600,2100 MADY Administration Radiology Results: ITS Impressions Chest X-Ray 02/03/24 21:19 IMPRESSION: No acute cardiopulmonary pathology. Head CT 02/03/24 22:07 IMPRESSION: No acute intracranial findings. Left parasagittal calcified meningioma unchanged. 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 Head/Neck CTA 02/04/24 11:47 IMPRESSION: 1. Minimal atherosclerotic plaque with 0% stenosis of the right and left carotid bulbs relative to normal distal artery lumen diameter (NASCET criteria). 2. 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 No cerebral artery hemodynamic significant stenosis or thrombosis. Labs Labs: Laboratory Results - last 24 hr 02/06/24 02/07/24 19:42 05:49 Sodium 135 L Potassium 4.1 Chloride 104 Carbon Dioxide 24 Anion Gap 7 BUN 16 Creatinine 1.20 H Estim Creat Clear Calc 26 Estimated GFR 43 L Glucose 87 Calcium 8.9 Total Bilirubin 0.5 AST 27 ALT 33 Alkaline Phosphatase 82 Total Protein 7.0 Albumin 3.6 Triglycerides 45 Cholesterol 127 LDL Cholesterol Direct 31 HDL Direct 78 Vitamin B12 449.0 Vitamin D 25-Hydroxy 44.9 Folate 5.3 Quality VTE Prophylaxis VTE prophylaxis: pharmacologic ordered
[2024-02-07 08:52] LABS: Large Platelets Present; Platelet Estimate Adequate (Adequate)
[2024-02-07 08:54] LABS: Poikilocytosis 1+
[2024-02-07 09:47] LABS: Schistocytes None Seen
[2024-02-07] MEDS: ATORVASTATIN 40 MG TABLET 80 MG PO (20:33)
--- NOTE | 2024-02-07 22:11 | PC.NURSE ---
pt endorses burning/itching of the genitals and states she has a history of UTIs and yeast infections
[2024-02-08] VITALS (11 sets, daily range): BP systolic 128–176; BP diastolic 68–100; PULSE 65–88; RESP 14–24; TEMP 36–36.7; O2SAT 94–100
--- NOTE | 2024-02-08 | ECHO_ITS ---
Patient Info Name: Nicole Patricia Age: 83 years : 1940 Gender: Female Ht: 63 in Wt: 110 lbs BSA: 1.49 m2 HR: 83 bpm BP: 176 / 68 mmHg Heart Rhythm: Sinus Rhythm Technical Quality: Good Exam Date: 02/08/2024 3:55 PM Exam Location: Echo Lab Patient Status: Inpatient Admit Date: 02/04/2024 Staff Ordering Physician: Yanet Garcia APRN [employer] Applicator: Joellen Samuels RDCS Attending Provider: Kassandra Gu PA-C Referring Physician: Jose GRACE; Exam Type: CA echo doppler color flow Study Info Indications - altered mental status Complete two-dimensional, color flow and Doppler transthoracic echocardiogram is performed. Summary 1. Complete two-dimensional, color flow and Doppler transthoracic echocardiogram is performed. 2. Left ventricular chamber dimension is normal. 3. Left ventricular systolic function is normal, estimated at 55-60%. 4. There is moderate concentric increased left ventricular wall thickness. 5. The left ventricular diastolic function is grade I diastolic dysfunction. 6. E/e' 15 is elevated. 7. Left atrial chamber dimension is moderately enlarged. 8. There is mild aortic valve sclerosis. 9. There is mild aortic valve regurgitation. 10. The mitral valve has moderately calcified annulus. 11. There is mild mitral valve regurgitation. 12. There is trace tricuspid valve regurgitation. 13. No pulmonary hypertension, estimated pulmonary arterial systolic pressure is 22 mmHg. 14. There is trivial pericardial effusion. Left Ventricle E/e' 15 is elevated. Left ventricular chamber dimension is normal. Left ventricular systolic function is normal, estimated at 55-60%. There is moderate concentric increased left ventricular wall thickness. The left ventricular diastolic function is grade I diastolic dysfunction. Right Ventricle Right ventricular chamber dimension is normal. Right ventricular systolic function is normal. Left Atria Left atrial chamber dimension is moderately enlarged. Right Atria Right atrial chamber dimension is normal. Aortic Valve The aortic valve is trileaflet. There is mild aortic valve sclerosis. There is no aortic valve stenosis. There is mild aortic valve regurgitation. Pulmonic Valve There is no pulmonic regurgitation. Mitral Valve The mitral valve has moderately calcified annulus. There is no mitral valve stenosis. There is mild mitral valve regurgitation. Tricuspid Valve There is trace tricuspid valve regurgitation. No pulmonary hypertension, estimated pulmonary arterial systolic pressure is 22 mmHg. Pericardium/Pleural There is trivial pericardial effusion. Inferior Vena Cava Normal inferior vena cava with >50% collapse upon inspiration consistent with normal right atrial pressure, 5 mmHg. Aorta The aortic root size at the sinus of Valsalva is normal. Left Ventricular Outflow Tract Name Value Normal LVOT 2D LVOT Diameter 2.0 cm LVOT Doppler LVOT Peak Gradient 2 mmHg LVOT Mean Gradient 1 mmHg LVOT VTI 12 cm LVOT VTI/AV VTI Ratio 0.6 LVOT Stroke Volume 38 ml LVOT CO 2.5 l/min LVOT CI 1.7 l/min/m2 Pulmonic Valve Name Value Normal RVOT Doppler RVOT Peak Gradient 1 mmHg PV Doppler PV Peak Gradient 2 mmHg Mitral Valve Name Value Normal MV Doppler MV Decel Pitt 170 cm/s2 MV PHT 83 ms MV Area (PHT) 2.6 cm2 4.0-5.0 MV Diastolic Function MV E Peak Velocity 49 cm/s MV A Peak Velocity 60 cm/s MV E/A 0.8 MV Decel Time 288 ms MV Annular TDI MV E/e' (Septal) 15.1 <=8.0 MV E/e' (Lateral) 14.9 <=8.0 MV E/e' (Average) 15.0 Tricuspid Valve Name Value Normal TV Regurgitation Doppler TR Peak Velocity 207 cm/s TR Peak Gradient 17 mmHg Estimated PAP/RSVP RA Pressure 5 mmHg <=5 PA Systolic Pressure 22 mmHg <36 RV Systolic Pressure 22 mmHg <36 Aorta Name Value Normal Ascending Aorta Ao Root Diameter (MM) 2.6 cm Ao Root Diam Index (MM) 1.8 cm/m2 Aortic Valve Name Value Normal AV Doppler AV Peak Velocity 106 cm/s AV Peak Gradient 4 mmHg AV Mean Gradient 3 mmHg AV VTI 21 cm AV Area (Cont Eq VTI) 1.8 cm2 >=3.0 AV Area (Cont Eq Yovanny) 1.9 cm2 AV Regurgitation 2D LVOT Area 3.1 cm2 AV Regurgitation Doppler AR Decel Time 2,439 ms AR Decel Pitt 193 cm/s2 AR PHT 707 ms Ventricles Name Value Normal LV Dimensions 2D/MM IVS Diastolic Thickness (2D) 1.2 cm 0.6-1.0 LVID Diastole (2D) 4.8 cm 3.8-5.2 LVIW Diastolic Thickness (2D) 1.2 cm 0.6-0.9 LVID Systole (2D) 3.1 cm 2.2-3.5 LVOT Diameter 2.0 cm LV Mass (2D Cubed) 214.74 g 67.00-162.00 LV Mass Index (2D Cubed) 145 g/m2 43-95 Relative Wall Thickness (2D) 0.50 LV Fractional Shortening/Ejection Fraction 2D/MM LV Fractional Shortening (2D) 35 % 27-45 LV EF (2D Teicholz) 64 % 54-74 LV Diastolic Volume (4C MOD) 88 ml LV EF (4C MOD) 60 % LV Diastolic Volume (2C MOD) 63 ml LV EF (2C MOD) 54 % LV Diastolic Volume (BP MOD) 75 ml 46-106 LV Diastolic Volume Index (BP MOD) 50 ml/m2 29-61 LV Systolic Volume (BP MOD) 31 ml 14-42 LV Systolic Volume Index (BP MOD) 21 ml/m2 8-24 LV EF (BP MOD) 58 % 54-74 LV Diastolic Length (4C) 7.7 cm LV Systolic Length (4C) 6.7 cm LV Stroke Volume (4C MOD) 53 ml Atria Name Value Normal LA Dimensions LA Dimension (MM) 3.6 cm 2.7-3.8 LA Volume (4C A-L) 52 ml LA Volume (BP A-L) 61 ml RA Dimensions RA Area (4C) 11.9 cm2 <=18.0 Report Signatures
[2024-02-08 06:26] LABS: Basophils Absolute Auto 0.1 K/mm3 (0.0-0.1); Basophils Percent Auto 1.1 % (0.2-1.2); Eosinophils Absolute Auto 0.1 K/mm3 (0-0.3); Eosinophils Percent Auto 2.5 % (0-4.4); Hematocrit 37.7 % (37.0-47.0); Hemoglobin 11.8 g/dL (12.0-15.0); Immature Granulocyte Absolute 0.01 K/mm3 (0.00-0.031); Immature Granulocyte Percent A 0.2 % (0-0.5); Lymphocytes Absolute Auto 1.41 K/mm3 (0.9-3.2); Lymphocytes Percent Auto 32.3 % (18.3-44.2); Mean Corpuscular HGB Conc 31.3 g/dl (32-36); Mean Corpuscular Hemoglobin 25.8 pg (26-34); Mean Corpuscular Volume 82.5 fl (80-100); Monocytes Absolute Auto 0.5 K/mm3 (0.1-0.6); Monocytes Percent Auto 10.3 % (2.6-8.5); Neutrophils Absolute Auto 2.3 K/mm3 (1.3-6.7); Neutrophils Percent Auto 53.6 % (45.5-73.1); Platelet Count Result 176 k/mm3 (150-375); Red Blood Count 4.57 M/mm3 (4.2-5.4); White Blood Count 4.4 K/mm3 (4.5-10.0)
[2024-02-08 06:41] LABS: Alanine Aminotransferase 30 U/L (6-35); Albumin Level 3.6 g/dL (3.5-5.1); Alkaline Phosphatase 75 U/L (38-126); Anion Gap 5 mmol/L (4-12); Aspartate Amino Transferase 28 U/L (14-36); Bilirubin,Total 0.5 mg/dL (0.2-1.3); Blood Urea Nitrogen 20 mg/dL (7-17); Calcium 8.8 mg/dL (8.4-10.2); Carbon Dioxide 26 mmol/L (22-30); Chloride 104 mmol/L (98-107); Estimated CRCL calculation 26 ml/min; Estimated Glomerular Filt Rate 43; Glucose 81 mg/dL (65-110); Potassium 4.2 mmol/L (3.4-5.0); Sodium 135 mmol/L (137-145)
[2024-02-08 06:51] LABS: Red Cell Distribution Width 24.8 % (11.5-14.5)
[2024-02-08 06:53] LABS: Anisocytosis 1+; Platelet Estimate Adequate (Adequate); Poikilocytosis 1+
[2024-02-08 06:54] LABS: Burr Cells 1+; Ovalocytes 1+; Schistocytes None Seen
[2024-02-08 08:08] LABS: Levetiracetam Keppra 54.4 mcg/mL (6.0-46.0)
[2024-02-08] MEDS: ENOXAPARIN 30 MG/0.3 ML SYRINGE SUB-Q (08:10)
[2024-02-08] MEDS: levETIRAcetam 500 MG TABLET 1500 MG PO (08:10)
[2024-02-08] MEDS: miSOPROStol 200 MCG TABLET PO (08:10)
[2024-02-08] MEDS: FERROUS SULFATE 325 MG TABLET DR BY MOUTH ×2 (08:10→16:28)
[2024-02-08] MEDS: POTASSIUM BICARBONATE 25 MEQ TABEF PO ×2 (08:10→16:28)
[2024-02-08] MEDS: CLOPIDOGREL BISULFATE 75 MG TABLET PO (08:11)
[2024-02-08] MEDS: busPIRone HCL 5 MG TABLET 15 MG PO ×3 (08:11→16:28)
[2024-02-08] MEDS: CITALOPRAM HYDROBROMIDE 20 MG TABLET PO (08:11)
[2024-02-08] MEDS: LOSARTAN POTASSIUM 25 MG TABLET PO (08:11)
[2024-02-08] MEDS: PYRIDOXINE HCL 50 MG TABLET 100 MG PO (08:11)
[2024-02-08] MEDS: PANTOPRAZOLE 40 MG TABLET PO ×2 (08:11→16:28)
--- NOTE | 2024-02-08 11:27 | PM.IMPN ---
Progress Note: A&P Assessment and Plan (1) Altered mental status: Code(s): R41.82 - Altered mental status, unspecified Status: Acute Assessment and Plan: Per family, patient has been having frequent episodes where she becomes unresponsive though her eyes were open she was not following commands or tracking with her eyes. There were no reports of tremors, tongue bite, or incontinence. Once she started to respond, she was unable to answer questions appropriately. Family members are also concerned that she has be come more forgetful and has some personality changes, possibly related to underlying dementia. - Per chart review, ED physician spoke with the on-call neurologist at [facility]. At this time he does not recommend any changes in her levetiracetam and close monitoring overnight. She can follow-up with them as scheduled on 02/21/2024. 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 She gives no history to suggest underlying infection. No indication for antibiotics at this time. - Head CT: No acute intracranial findings. Left parasagittal calcified meningioma unchanged. 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 - Head/neck CTA: Minimal atherosclerotic plaque with 0% stenosis of the right and left carotid bulbs relative to normal distal artery lumen diameter (NASCET criteria). 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 No cerebral artery hemodynamic significant stenosis or thrombosis. - Brain MRI ordered, received [facility] loop recorder records to proceed. - Neuro consulted Discussed patient with neuro and she is to stay inpatient to have the Brain MRI performed to rule out epileptic aphasia or aphasia due to extension of the stroke -Keppra dose decreased 1,000 mg PO BID per Neurology Dr. Harris due to Keppra level of 54.4. -Due to patient prior CVA and new symptoms she is to be started on plavix 75 mg daily, no ASA given prior GI bleed - MRI of brain today showed: FINDINGS: There is chronic encephalomalacia in left frontal and parietal lobes, left insula, and left basal ganglia with old blood products. There is a 2.4 x 2.4 cm enhancing extra-axial mass at the falx superomedial to left parietal lobe, consistent with a meningioma. There is a small old infarct in left cerebellum. There are scattered areas of nonspecific increased T2-weighted signal intensity in the cerebral white matter. There is no acute ischemic infarct. There is expected dilatation of left lateral ventricle. There are likely changes of ocular lens replacement surgeries. The paranasal sinuses are clear. The mastoid air cells are normal. IMPRESSION: 1. 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 2. Chronic encephalomalacia involving the left frontal and parietal lobes, left insula, and left basal ganglia. Small old infarct in left cerebellum. - Echo ordered per Neurology request. (2) Seizure disorder: Code(s): G40.909 - Epilepsy, unspecified, not intractable, without status epilepticus Status: Acute Assessment and Plan: Chronic, follows neurology at [facility]. Appointment scheduled for 02/20. - Per chart review, ED physician spoke with the on-call neurologist at [facility]. At this time he does not recommend any changes in her levetiracetam and close monitoring overnight. She can follow-up with them as scheduled on 02/21/2024. - Keppra dose decreased 1,000 mg PO BID per Neurology Dr. Harris due to Keppra level of 54.4. - Seizure precautions - Monitor (3) Hypertension: Qualifiers: Hypertension type: primary hypertension Qualified Code(s): I10 - Essential (primary) hypertension Code(s): I10 - Essential (primary) hypertension Status: Acute Assessment and Plan: BP have been consistently elevated with systolics ranging from the 150-160s. HR has been in the lower 60s. - Started on losartan 25 mg mg daily - Monitor (4) Meningioma: Code(s): D32.9 - Benign neoplasm of meninges, unspecified Status: Acute Assessment and Plan: Chronic. - Head CT: Left parasagittal calcified meningioma unchanged - MRI of brain today showed: FINDINGS: There is chronic encephalomalacia in left frontal and parietal lobes, left insula, and left basal ganglia with old blood products. There is a 2.4 x 2.4 cm enhancing extra-axial mass at the falx superomedial to left parietal lobe, consistent with a meningioma. There is a small old infarct in left cerebellum. There are scattered areas of nonspecific increased T2-weighted signal intensity in the cerebral white matter. There is no acute ischemic infarct. There is expected dilatation of left lateral ventricle. There are likely changes of ocular lens replacement surgeries. The paranasal sinuses are clear. The mastoid air cells are normal. IMPRESSION: 1. 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 2. Chronic encephalomalacia involving the left frontal and parietal lobes, left insula, and left basal ganglia. Small old infarct in left cerebellum. (5) Chronic kidney disease: Code(s): N18.9 - Chronic kidney disease, unspecified Status: Acute Assessment and Plan: BUN/Cr 19/1.1 on admission. Appears at baseline. - Monitor I/O - Monitor electrolytes - Avoid nephrotoxic medications - Renally dose medications - Today BUN 20, Creatinine 1.20, & GFR 43. Subjective Date/time seen: 02/08/24 11:27 Interval history: Patient denies chest pain, palpitations, shortness of breath, headache, or dizziness. Received records with information regarding loop recorder faxed to radiology so that patient can be approved for MRI. Family at bedside. Review of Systems Review of Systems: All systems reviewed & are unremarkable except as noted in HPI and below Exam Const: General: comfortable and no acute distress Eyes: Sclera: sclerae normal Resp: Effort & Inspection: normal respiratory effort Auscultation: clear to auscultation bilaterally Cardio: Rate: regular rate Rhythm: regular rhythm Other: Telemetry- SR 95. GI: GI Palp: Yes Soft to palpation Auscultation: normal bowel sounds Other: Last BM 02/08/24 Skin: General skin exam: no rashes or lesions noted Neuro: Other: Chronic expressive aphasia. Extrem: General: normal to inspection Psych: Mental Status: mental status grossly normal Affect: normal affect Objective Data Vital Signs Vital Signs: Vital Signs - 24 hr 02/07/24 12:00 02/07/24 12:00 02/07/24 16:00 Temperature 97.6 F 97.1 F L Pulse Rate 71 67 75 Respiratory Rate 16 16 Blood Pressure 119/63 155/99 H Pulse Oximetry 98 98 Oxygen Delivery 02/07/24 16:00 02/07/24 20:00 02/07/24 20:00 Temperature 98.2 F Pulse Rate 67 64 Respiratory Rate 18 Blood Pressure 165/95 H Pulse Oximetry 98 Oxygen Delivery Room Air 02/07/24 20:00 02/07/24 20:05 02/07/24 20:10 Temperature Pulse Rate Respiratory Rate Blood Pressure 165/95 H 150/87 H 159/91 H Pulse Oximetry Oxygen Delivery 02/07/24 20:00 11/06/24 00:00 02/08/24 00:00 Temperature 97.7 F Pulse Rate 66 66 65 Respiratory Rate 16 Blood Pressure 157/92 H Pulse Oximetry 94 Oxygen Delivery 02/08/24 04:00 02/08/24 04:00 02/08/24 08:00 Temperature 97.6 F Pulse Rate 71 88 Respiratory Rate 18 Blood Pressure 154/90 H 143/90 H Pulse Oximetry 98 Oxygen Delivery 02/08/24 08:00 02/08/24 08:38 02/08/24 08:38 Temperature 96.8 F L Pulse Rate 66 Respiratory Rate 14 Blood Pressure 143/90 H 128/88 143/81 H Pulse Oximetry 99 Oxygen Delivery 02/08/24 08:10 02/08/24 08:10 Temperature Pulse Rate 65 Respiratory Rate Blood Pressure Pulse Oximetry Oxygen Delivery Room Air Intake/Output Intake/Output: Intake & Output 02/05/24 02/06/24 02/07/24 02/08/24 23:59 23:59 23:59 23:59 Intake Total 817 720 168 Output Total 450 2100 550 Balance 618 -6913 -384 Meds/Results Medications: Active Medications Generic Name Dose Route Start Last Admin Trade Name Freq PRN Reason Stop Dose Admin Atorvastatin Calcium 80 mg 02/04/24 21:00 02/07/24 20:33 Atorvastatin 40 Mg Tablet PO 80 mg HS MADY Administration Buspirone HCl 15 mg 02/04/24 09:00 02/08/24 08:11 Buspirone Hcl 5 Mg Tablet PO 15 mg TID MADY Administration Citalopram Hydrobromide 20 mg 02/04/24 09:00 02/08/24 08:11 Citalopram Hydrobromide 20 Mg Tablet PO 20 mg DAILY MADY Administration Clopidogrel Bisulfate 75 mg 02/07/24 09:00 02/08/24 08:11 Clopidogrel Bisulfate 75 Mg Tablet PO 75 mg QAM MADY Administration Enoxaparin Sodium 30 mg 02/05/24 09:00 02/08/24 08:10 Enoxaparin 30 Mg/0.3 Ml Syringe SUB-Q 30 mg DAILY MADY Administration Ferrous Sulfate 325 mg 02/04/24 09:00 02/08/24 08:10 Ferrous Sulfate [address] BY MOUTH 325 mg BID MADY Administration Levetiracetam 1,500 mg 02/04/24 09:00 02/08/24 08:10 Levetiracetam 500 Mg Tablet PO 1,500 mg Q12HR MADY Administration Losartan Potassium 25 mg 02/06/24 09:00 02/08/24 08:11 Losartan Potassium 25 Mg Tablet PO 25 mg DAILY MADY Administration Misoprostol 200 mcg 02/04/24 08:00 02/08/24 08:10 Misoprostol 200 Mcg Tablet PO 200 mcg DAILY@0800 [facility] Administration Pantoprazole Sodium 40 mg 02/04/24 09:00 02/08/24 08:11 Pantoprazole 40 Mg Tablet PO 40 mg BID MADY Administration Potassium Bicarbonate 25 meq 02/04/24 09:00 02/08/24 08:10 Potassium Bicarbonate 25 Meq Tabef PO 25 meq BID [facility] Administration Pyridoxine HCl 100 mg 02/04/24 09:00 02/08/24 08:11 Pyridoxine Hcl 50 Mg Tablet PO 100 mg QAM MADY Administration Sucralfate 1,000 mg 02/04/24 07:00 02/08/24 06:34 Sucralfate Susp 100 Mg/Ml 10 Ml Udc PO Not Given 0700,1100,1600,2100 [facility] Radiology Results: ITS Impressions Chest X-Ray 02/03/24 21:19 IMPRESSION: No acute cardiopulmonary pathology. Head CT 02/03/24 22:07 IMPRESSION: No acute intracranial findings. Left parasagittal calcified meningioma unchanged. 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 Head/Neck CTA 02/04/24 11:47 IMPRESSION: 1. Minimal atherosclerotic plaque with 0% stenosis of the right and left carotid bulbs relative to normal distal artery lumen diameter (NASCET criteria). 2. 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 No cerebral artery hemodynamic significant stenosis or thrombosis. Labs Labs: Laboratory Results - last 24 hr 02/06/24 02/08/24 19:42 05:18 WBC 4.4 L RBC 4.57 Hgb 11.8 L Hct 37.7 MCV 82.5 MCH 25.8 L MCHC 31.3 L RDW 24.8 H Plt Count 176 MPV TNP Immature Gran % (Auto) 0.2 Neut % (Auto) 53.6 Lymph % (Auto) 32.3 [place] % (Auto) 10.3 H Eos % (Auto) 2.5 Baso % (Auto) 1.1 Lymph # (Auto) 1.41 [place] # (Auto) 0.5 Eos # (Auto) 0.1 Baso # (Auto) 0.1 Abs Immat Gran (auto) 0.01 Absolute Neuts (auto) 2.3 Absolute Nucleated RBC 0.000 Nucleated RBC % 0.0 Platelet Estimate Adequate % Immature Plt Fraction 8.0 Poikilocytosis 1+ Anisocytosis 1+ Ovalocytes 1+ [place] Cells 1+ Schistocytes None seen Sodium 135 L Potassium 4.2 Chloride 104 Carbon Dioxide 26 Anion Gap 5 BUN 20 H Creatinine 1.20 H Estim Creat Clear Calc 26 Estimated GFR 43 L Glucose 81 Calcium 8.8 Total Bilirubin 0.5 AST 28 ALT 30 Alkaline Phosphatase 75 Total Protein 7.0 Albumin 3.6 Levetiracetam 54.4 H Quality VTE Prophylaxis VTE prophylaxis: pharmacologic ordered
[2024-02-08] MEDS: SUCRALFATE SUSP 100 MG/ML 10 ML UDC 1000 MG PO ×3 (11:53→20:25)
[2024-02-08] MEDS: levETIRAcetam 500 MG TABLET 1000 MG PO (20:25)
[2024-02-08] MEDS: ATORVASTATIN 40 MG TABLET 80 MG PO (20:26)
[2024-02-09] VITALS: PULSE 66
[2024-02-09 04:00] VITALS: BP 180/100; PULSE 61; PULSE 70; RESP 18; TEMP 37.1; O2SAT 97
[2024-02-09] MEDS: LOSARTAN POTASSIUM 25 MG TABLET PO ×2 (05:37→11:00)
[2024-02-09] MEDS: SUCRALFATE SUSP 100 MG/ML 10 ML UDC 1000 MG PO ×2 (05:38→11:18)
[2024-02-09 06:42] LABS: Basophils Percent Auto 0.8 % (0.2-1.2); Eosinophils Absolute Auto 0.1 K/mm3 (0-0.3); Eosinophils Percent Auto 2.5 % (0-4.4); Hematocrit 36.8 % (37.0-47.0); Hemoglobin 12.2 g/dL (12.0-15.0); Lymphocytes Absolute Auto 1.29 K/mm3 (0.9-3.2); Lymphocytes Percent Auto 26.9 % (18.3-44.2); Mean Corpuscular HGB Conc 33.2 g/dl (32-36); Mean Corpuscular Hemoglobin 27.1 pg (26-34); Mean Corpuscular Volume 81.8 fl (80-100); Mean Platelet Volume 10.6 fl (7.4-10.4); Monocytes Absolute Auto 0.5 K/mm3 (0.1-0.6); Neutrophils Absolute Auto 2.9 K/mm3 (1.3-6.7); Neutrophils Percent Auto 59.8 % (45.5-73.1); Platelet Count Result 173 k/mm3 (150-375); Red Cell Distribution Width 24.1 % (11.5-14.5); White Blood Count 4.8 K/mm3 (4.5-10.0)
[2024-02-09 07:00] LABS: Alanine Aminotransferase 30 U/L (6-35); Albumin Level 3.8 g/dL (3.5-5.1); Alkaline Phosphatase 89 U/L (38-126); Anion Gap 4 mmol/L (4-12); Aspartate Amino Transferase 27 U/L (14-36); Bilirubin,Total 0.5 mg/dL (0.2-1.3); Blood Urea Nitrogen 17 mg/dL (7-17); Calcium 9.2 mg/dL (8.4-10.2); Carbon Dioxide 24 mmol/L (22-30); Chloride 106 mmol/L (98-107); Estimated CRCL calculation 28 ml/min; Estimated Glomerular Filt Rate 48; Glucose 91 mg/dL (65-110); Potassium 4.1 mmol/L (3.4-5.0); Sodium 134 mmol/L (137-145)
[2024-02-09 07:49] LABS: Large Platelets Present; Platelet Estimate Adequate (Adequate)
[2024-02-09 07:51] LABS: Burr Cells 1+; Ovalocytes 1+; Schistocytes Rare
[2024-02-09 08:00] VITALS: BP 161/113; BP 175/96; PULSE 68; PULSE 78; RESP 14; TEMP 36.4; O2SAT 100
[2024-02-09 08:14] VITALS: BP 145/109; PULSE 83; RESP 14; TEMP 36.4; O2SAT 99
[2024-02-09] MEDS: PYRIDOXINE HCL 50 MG TABLET 100 MG PO (08:21)
[2024-02-09] MEDS: busPIRone HCL 5 MG TABLET 15 MG PO (08:22)
[2024-02-09] MEDS: CLOPIDOGREL BISULFATE 75 MG TABLET PO (08:22)
[2024-02-09] MEDS: PANTOPRAZOLE 40 MG TABLET PO (08:23)
[2024-02-09] MEDS: miSOPROStol 200 MCG TABLET PO (08:23)
[2024-02-09] MEDS: CITALOPRAM HYDROBROMIDE 20 MG TABLET PO (08:23)
[2024-02-09] MEDS: POTASSIUM BICARBONATE 25 MEQ TABEF PO (08:23)
[2024-02-09] MEDS: levETIRAcetam 500 MG TABLET 1000 MG PO (08:23)
[2024-02-09] MEDS: FERROUS SULFATE 325 MG TABLET DR BY MOUTH (08:23)
[2024-02-09] MEDS: ENOXAPARIN 30 MG/0.3 ML SYRINGE SUB-Q (08:34)
--- NOTE | 2024-02-09 11:12 | P.DS_ITS ---
DS: Admitting Diagnosis Discharge Date 02/09/2024 Admitting Diagnosis Altered mental status DS: Discharge Diagnosis Discharge Diagnosis (1) Altered mental status: Code(s): R41.82 - Altered mental status, unspecified Status: Acute (2) Seizure disorder: Code(s): G40.909 - Epilepsy, unspecified, not intractable, without status epilepticus Status: Acute (3) Hypertension: Qualifiers: Hypertension type: primary hypertension Qualified Code(s): I10 - Essential (primary) hypertension Code(s): I10 - Essential (primary) hypertension Status: Acute (4) Chronic kidney disease: Code(s): N18.9 - Chronic kidney disease, unspecified Status: Acute (5) Meningioma: Code(s): D32.9 - Benign neoplasm of meninges, unspecified Status: Acute DS: Summary Hospital Course Hospital Course: Patient admitted with altered mental status. Patient improved. Chest X-ray No acute cardiopulmonary pathology. Head CT showed: IMPRESSION: No acute intracranial findings. Left parasagittal calcified meningioma unchanged. 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 Neck head CTA showed: IMPRESSION: 1. Minimal atherosclerotic plaque with 0% stenosis of the right and left carotid bulbs relative to normal distal artery lumen diameter (NASCET criteria). 2. 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 No cerebral artery hemodynamic significant stenosis or thrombosis. Brain MRI showed: IMPRESSION: 1. 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 2. Chronic encephalomalacia involving the left frontal and parietal lobes, left insula, and left basal ganglia. Small old infarct in left cerebellum. Keppra level elevated at 54.4. Keppra decreased to 1,000 mg PO BID per neurology. Patient also started on [id number] mg PO daily. Patient received PT/OT. Patient with elevated blood pressure, Losartan 50 mg PO daily. Status at Discharge Functional status at discharge: independent ambulation Overall status at discharge: patient is progressing back to baseline Time Spent with Patient Time attestation: Total time spent providing and/or coordinating discharge services: Time spent: Greater than 30 minutes Exam Const: General: comfortable and no acute distress Eyes: Sclera: sclerae normal Resp: Effort & Inspection: normal respiratory effort Auscultation: clear to auscultation bilaterally Cardio: Rate: regular rate Rhythm: regular rhythm GI: GI Palp: Yes Soft to palpation Auscultation: normal bowel sounds Urinary Catheter: Urinary Catheter: patent and draining (suprapubic catheter) and urine clear Skin: General skin exam: no rashes or lesions noted Neuro: Other: Chronic expressive aphasia. Extrem: General: normal to inspection Psych: Mental Status: mental status grossly normal Affect: normal affect DS: Data Data Completed and Pending Labs on day of discharge: Labs from last 24 hours 02/09/24 05:48 WBC 4.8 RBC 4.50 Hgb 12.2 Hct 36.8 L MCV 81.8 MCH 27.1 D MCHC 33.2 RDW 24.1 H Plt Count 173 MPV 10.6 H Immature Gran % (Auto) 0.0 Neut % (Auto) 59.8 Lymph % (Auto) 26.9 [place] % (Auto) 10.0 H Eos % (Auto) 2.5 Baso % (Auto) 0.8 Lymph # (Auto) 1.29 [place] # (Auto) 0.5 Eos # (Auto) 0.1 Baso # (Auto) 0.0 Abs Immat Gran (auto) 0.00 Absolute Neuts (auto) 2.9 Absolute Nucleated RBC 0.000 Nucleated RBC % 0.0 Platelet Estimate Adequate Large Platelets Present % Immature Plt Fraction 7.0 Ovalocytes 1+ [place] Cells 1+ Schistocytes Rare Sodium 134 L Potassium 4.1 Chloride 106 Carbon Dioxide 24 Anion Gap 4 BUN 17 Creatinine 1.10 H Estim Creat Clear Calc 28 Estimated GFR 48 L Glucose 91 Calcium 9.2 Total Bilirubin 0.5 AST 27 ALT 30 Alkaline Phosphatase 89 Total Protein 7.0 Albumin 3.8 Discharge Plan Discharge Attending physician on discharge: Mandeep Hewitt Consulting providers: Hima Watts Discharging Clinician: Yanet Garcia Anticipated Discharge Date/Time: 02/09/24 14:00 Patient Disposition: Home, Self-Care Activity: may shower Diet: heart healthy Discharge Instructions: * U neurologist appointment on 02/21/24 * Check blood pressure daily and record. Take blood pressure readings to your primary visit. Patient Instructions: Antibiotic Form, Heart Healthy Diet (DC), Pain Management (DC), Hypertension in the Older Adult (DC) Stand Alone Forms: General Discharge Information Follow-up/Referrals: Jeffery,Maria Del Carmen Horton MD [Primary Care Provider] - 1 Week Discharge Medications: New losartan 50 mg tablet 50 mg PO DAILY Qty: 30 0RF levetiracetam 1,000 mg tablet 1,000 mg PO BID Qty: 60 0RF clopidogrel 75 mg Tablet 75 mg PO QAM Qty: 30 0RF Continued misoprostol 200 mcg tablet 200 mcg PO DAILY Rx Instructions: administer with meal citalopram 20 mg Tablet 20 mg PO DAILY atorvastatin 80 mg tablet 80 mg PO HS pyridoxine (vitamin B6) 100 mg tablet 100 mg PO DAILY buspirone 15 mg tablet 15 mg PO TID sucralfate 100 mg/mL Suspension 1,000 mg PO ACHS Qty: 1000 1RF ferrous sulfate 325 mg (65 mg iron) tablet 325 mg PO BID Qty: 60 0RF Effer-K 25 mEq tablet, effervescent 25 meq PO BID pantoprazole 40 mg tablet,delayed release (DR/EC) 40 mg PO BID Qty: 60 11RF Discontinued levetiracetam 1,000 mg Tablet 1,500 mg PO BID Date of admission: 02/04/24 01:28 Primary Care Provider: Jeffery,Maria Del Carmen Horton Admitting Provider: Kieran Osborne Attending physician on admission: Kassandra Gu Condition: Stable Hospitalist MIPS Heart Failure (Exclusion) Patient has history of Heart Transplant or Left Ventricular Assistive Device?: No IF YES, STOP HERE Heart Failure (Qualifier) Patient has current or prior documentation of LVEF less than or equal to 40%, or mod/servere depressed LVSF?: No IF NO, STOP HERE
[2024-02-09 12:00] VITALS: BP 164/90; PULSE 77; RESP 18; TEMP 35.8; O2SAT 97
== END 2024-02-09 13:45 | disposition home or self-care (01) ==
LOC: ANHED 02-04 01:23 → ANH3MEDSUR 02-04 02:20
PROVIDERS: Psychiatry & Neurology Neurology; Student in an Organized Health Care Education/Training Program; Admitting Provider Internal Medicine; Emergency Provider Emergency Medicine; PCP Internal Medicine Gastroenterology; Visit Provider Nurse Practitioner Family
DX: R41.82 Altered mental status, unspecified (principal); G40.909 Epilepsy, unspecified, not intractable, without status epilepticus; D32.9 Benign neoplasm of meninges, unspecified; R47.01 Aphasia; I12.9 Hypertensive chronic kidney disease with stage 1 through stage 4 chronic kidney disease, or unspecified chronic kidney disease; N18.9 Chronic kidney disease, unspecified; D50.9 Iron deficiency anemia, unspecified; R82.90 Unspecified abnormal findings in urine; E78.5 Hyperlipidemia, unspecified; Z86.73 Personal history of transient ischemic attack (TIA), and cerebral infarction without residual deficits; Z20.822 Contact with and (suspected) exposure to COVID-19; Z79.899 Other long term (current) drug therapy; Z96.0 Presence of urogenital implants; Z98.1 Arthrodesis status; Z96.653 Presence of artificial knee joint, bilateral
CPT/HCPCS: 36415; 70450; 70496; 70498; 70553; 71045; 80053; 80061; 80177; 81001; 82306; 82607; 82746; 83605; 83735; 84484; 85025; 85055; 85610; 85730; 87086; 87637; 93005; 93306; 96372; 96374; 97110; 97161; 97165; 97530; 99285; A9270; A9577; G0378; J0360; J1650; Q9967

== ENCOUNTER 2024-02-28 16:38 | Emergency (ER) | payer MEDICARE, OTHER, SELFPAY ==
[2024-02-28 16:47] VITALS: BP 180/97; PULSE 68; RESP 16; TEMP 36.4; O2SAT 98
--- NOTE | 2024-02-28 16:57 | ED.FEMALEGU ---
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 She reports she has had burning when she urinates for the past 3-4 days. Patient reports she has not noticed any blood in her urine. She denies back pain. Patient also has a history of expressive aphasia due to a previous stroke. She denies any recent fevers, chest pain, shortness a breath. GENERAL: Well-appearing, well-nourished, and in no acute distress. HEAD: Normocephalic, atraumatic. CHEST: Clear to auscultation. ?No respiratory distress. HEART: Regular rate and rhythm.? NEURO: ?Alert and oriented x3. Patient screened in triage and initial orders placed.? ?Additional care and disposition to be based upon?diagnostic testing and treatment. <Basia Valencia APRN - Last Filed: 02/28/24 16:58> Related Data Home medications: Home Medications Medication Instructions Recorded Confirmed misoprostol 200 mcg tablet 200 mcg PO DAILY 11/05/19 02/04/24 atorvastatin 80 mg tablet 80 mg PO HS 08/29/20 02/04/24 citalopram 20 mg tablet 20 mg PO DAILY 05/11/22 02/04/24 buspirone 15 mg tablet 15 mg PO TID 01/04/23 02/04/24 pyridoxine (vitamin B6) 100 mg 100 mg PO DAILY 01/04/23 02/04/24 tablet potassium bicarbonate-citric acid 25 meq PO BID 02/04/24 02/04/24 25 mEq effervescent tablet (Effer-K) <Basia Valencia APRN - Last Filed: 02/28/24 16:58> Allergies/Adverse reactions: Allergies Allergy/AdvReac Type Severity Reaction Status Date / Time naproxen Allergy Severe cardiac Verified 07/05/23 18:14 arrest NSAIDS (Non-Steroidal Allergy Severe cardiac Verified 07/05/23 18:14 Anti-Inflamma arrest morphine Allergy Mild unknown Verified 07/05/23 18:14 <Basia Valencia APRN - Last Filed: 02/28/24 16:58> Review of Systems Review of Systems: CONSTITUTIONAL: Denies fever GASTROINTESTINAL: Denies flank pain, nausea, vomiting GENITOURINARY: Reports dysuria. Denies hematuria. <Hilaria Patterson PA-C - Last Filed: 02/28/24 21:27> All systems reviewed & are unremarkable except as noted in HPI and below <Hilaria Patterson PA-C - Last Filed: 02/28/24 21:27> [facility] Past Medical History Medical History: Medical History (Updated 02/28/24 @ 21:26 by Hilaria Patterson PA-C) Atrophy of left kidney Chronic kidney disease Expressive aphasia Gastrojejunal ulcer with hemorrhage History of gastroscopy 08/18/09, 09/09/09, with structure Hypertension Iron (Fe) deficiency anemia Ischemic cerebrovascular accident (CVA) (08/14/20) Treated with tPA and thrombectomy Left-sided cerebrovascular accident (CVA) Meningioma Seizure disorder Urinary incontinence Vaginal delivery 1960, , full term, female, 7#10 1969, , full term, female, 7#10 <Basia Valencia, KIRSTEN - Last Filed: 02/28/24 16:58> Surgical History Surgical History: Surgical History H/O rectal polypectomy 11/13/08, 08/27/03 H/O right heart catheterization 12/17/08 unsure if lt or rt History of breast biopsy 06/09/10, stereotactic, biopsy rt breast History of cholecystectomy 05/09/09 History of endoscopy 12/16/09, 02/10/10, 08/25/10, 04/26/18 History of esophagogastroduodenoscopy (EGD) 04/25/12, with upper GI History of eye surgery 11/05/14 cataract right eye, 11/20/14 cataract left eye, 07/28/18 bilateral removal of scar tissue 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ing MARCUS L4-5, L3-4, Doscectomy/fusion lt iliac crest graft 10/12/01 cervical discectomy and fusion of c6-7 History of spinal surgery 02/10/16 lumbar decompressive laminectomy, transformal lumbar interbody fusion with PEEK spacers, posterior intertransverse fusion, posterior spinal instrumentation, harvesting bone graft History of stress incontinence procedure using tension free vaginal tape 05/18/01 Hx of breast surgery 07/27/10, mastopexy <Basia Valencia, POLISH COMPOUNDER - Last Filed: 02/28/24 16:58> Family History Family History: Family History Grandparent Family history of malignant neoplasm of ovary Father Family history of lung cancer Sibling Family history of lung cancer <Bsaia Valencia, POLISH COMPOUNDER - Last Filed: 02/28/24 16:58> Social History Social History: Social History Social History: Surrogate medical decision maker: Pavithra Vargas ([phone]), daughter. Code status: Full code. Smoking status: Never smoker Alcohol intake: never Substance use: never Substance use type: does not use Do You Feel Safe in your Home?: Yes Lack of Transportation: No Lack of Food: Never True Current Housing: I Have Housing Concerned About Future Housing: No Difficulty Paying Gas/Electric Bills: No Difficulty Paying for Meds: No Currently Unemployed: No Education: High School Diploma/GED Difficulty w/ Childcare or Family Care: No Living arrangements: with family Additional living arrangements comments: with 2 children. She lives with her significant other in [place]. 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 Spiritual care concerns: No <Basia Valencia, POLISH COMPOUNDER - Last Filed: 02/28/24 16:58> Exam Narrative: GENERAL: Well-appearing, well-nourished, and in no acute distress. HEAD: Normocephalic, atraumatic. EYES: EOMI. CHEST: Clear to auscultation. No respiratory distress. No wheezes rales or rhonchi HEART: Regular rate and rhythm. No murmur heard. Normal peripheral pulses. ABDOMEN: Soft, nontender, nondistended, normal active bowel sounds. No CVA tenderness EXTREMITIES: Normal range of motion. No edema. SKIN: Warm, dry, no rash. NEURO: No focal deficits. Alert and oriented x3. PSYCH: Normal mood and affect <Hilaria Patterson PA-C - Last Filed: 02/28/24 21:27> Course Course Emergency Course: Patient and family updated on workup and agree with plan of care <Hilaria Patterson PA-C - Last Filed: 02/28/24 21:27> Vital Signs Vital signs: Vital Signs Temperature 97.6 F 02/28/24 16:47 Pulse Rate 68 02/28/24 16:47 Respiratory Rate 16 02/28/24 16:47 Blood Pressure 180/97 H 02/28/24 16:47 Pulse Oximetry 98 02/28/24 16:47 Oxygen Delivery Room Air 02/28/24 16:47 Temperature 97.6 F 02/28/24 16:47 Pulse Rate 68 02/28/24 16:47 Respiratory Rate 16 02/28/24 16:47 Blood Pressure 180/97 H 02/28/24 16:47 Pulse Oximetry 98 02/28/24 16:47 Oxygen Delivery Room Air 02/28/24 16:47 <Basia Valencia, POLISH COMPOUNDER - Last Filed: 02/28/24 16:58> Vital Signs Temperature 97.6 F 02/28/24 16:47 Pulse Rate 68 02/28/24 16:47 Respiratory Rate 16 02/28/24 16:47 Blood Pressure 180/97 H 02/28/24 16:47 Pulse Oximetry 98 02/28/24 16:47 Oxygen Delivery Room Air 02/28/24 16:47 Temperature 97.6 F 02/28/24 16:47 Pulse Rate 68 02/28/24 16:47 Respiratory Rate 16 02/28/24 16:47 Blood Pressure 180/97 H 02/28/24 16:47 Pulse Oximetry 98 02/28/24 16:47 Oxygen Delivery Room Air 02/28/24 16:47 <Hilaria Patterson PA-C - Last Filed: 02/28/24 21:27> MDM - Female Genitourinary MDM Narrative Medical decision making narrative: Patient presents to the ER for dysuria. She is afebrile and nontoxic appearing. Abdomen is soft. No CVA tenderness. Cbc without leukocytosis. Kidney function appears around baseline. Urine with evidence of infection. This will be sent for culture. Patient and family updated on workup. She will be started on oral antibiotics. She is to follow up with primary provider. She was given warnings to return to the ER <Hilaria Patterson PA-C - Last Filed: 02/28/24 21:27> Differential Diagnosis Differential diagnosis: Likely urinary tract infection and vaginitis <Hilaria Patterson PA-C - Last Filed: 02/28/24 21:27> Lab Data Attestation: I reviewed the patient's lab results. <Hilaria Patterson PA-C - Last Filed: 02/28/24 21:27> Result diagrams: 02/28/24 20:41 02/28/24 20:41 <Basia Valencia APRN - Last Filed: 02/28/24 16:58> Labs: Lab Results 02/28/24 02/28/24 Range/Units 17:38 20:41 WBC 6.1 (4.5-10.0) K/mm3 RBC 4.06 L (4.2-5.4) M/mm3 Hgb 11.2 L (12.0-15.0) g/dL Hct 34.1 L (37.0-47.0) % MCV 84.0 (80-100) fl MCH 27.6 (26-34) pg MCHC 32.8 (32-36) g/dl RDW 19.2 H (11.5-14.5) % Plt Count 187 (150-375) k/mm3 MPV 10.3 (7.4-10.4) fl Immature Gran % (Auto) 0.2 (0-0.5) % Neut % (Auto) 66.2 (45.5-73.1) % Lymph % (Auto) 22.0 (18.3-44.2) % Floyd % (Auto) 9.6 H (2.6-8.5) % Eos % (Auto) 1.5 (0-4.4) % Baso % (Auto) 0.5 (0.2-1.2) % Lymph # (Auto) 1.33 (0.9-3.2) K/mm3 Floyd # (Auto) 0.6 (0.1-0.6) K/mm3 Eos # (Auto) 0.1 (0-0.3) K/mm3 Baso # (Auto) 0.0 (0.0-0.1) K/mm3 Abs Immat Gran (auto) 0.01 (0.00-0.031) K/mm3 Absolute Neuts (auto) 4.0 (1.3-6.7) K/mm3 Absolute Nucleated RBC 0.000 (0.0-0.012) K/mm3 Nucleated RBC % 0.0 (0.0-0.2) % % Immature Plt Fraction 5.3 (0.9-11.2) % Sodium 137 (137-145) mmol/L Potassium 4.1 (3.4-5.0) mmol/L Chloride 106 (98-107) mmol/L Carbon Dioxide 28 (22-30) mmol/L Anion Gap 3 L (4-12) mmol/L BUN 16 (7-17) mg/dL Creatinine 1.10 H (0.7-1.0) mg/dL Estim Creat Clear Calc Not Reportable Estimated GFR 48 L (59 - ) Glucose 109 (65-110) mg/dL Calcium 8.9 (8.4-10.2) mg/dL Urine Color Yellow (Yellow) Urine Appearance Cloudy H (Clear) Urine pH 7.0 (5.0-9.0) Ur Specific Solomon 1.025 (1.001-1.035) Urine Protein 4+ H (Negative) mg/dL Urine Glucose (UA) Negative (Negative) mg/dL Urine Ketones Trace H (Negative) mg/dL Ur Blood (Man) 2+ H (Negative) Urine Nitrate Negative (Negative) Urine Bilirubin Negative (Negative) Urine Urobilinogen 1.0 (<2.0) mg/dL Leukocyte Esterase Rfl 2+ H (Negative) ISIDRO/UL Urine RBC >100 H (0-2) /hpf Urine WBC >100 H (0-3) /hpf Ur Squamous Epith Cells None seen (Few) /hpf Urine Bacteria None seen /hpf Urine Casts 3-5 <Basia Valencia, POLISH COMPOUNDER - Last Filed: 02/28/24 16:58> Lab Results 02/28/24 02/28/24 Range/Units 17:38 20:41 WBC 6.1 (4.5-10.0) K/mm3 RBC 4.06 L (4.2-5.4) M/mm3 Hgb 11.2 L (12.0-15.0) g/dL Hct 34.1 L (37.0-47.0) % MCV 84.0 (80-100) fl MCH 27.6 (26-34) pg MCHC 32.8 (32-36) g/dl RDW 19.2 H (11.5-14.5) % Plt Count 187 (150-375) k/mm3 MPV 10.3 (7.4-10.4) fl Immature Gran % (Auto) 0.2 (0-0.5) % Neut % (Auto) 66.2 (45.5-73.1) % Lymph % (Auto) 22.0 (18.3-44.2) % Floyd % (Auto) 9.6 H (2.6-8.5) % Eos % (Auto) 1.5 (0-4.4) % Baso % (Auto) 0.5 (0.2-1.2) % Lymph # (Auto) 1.33 (0.9-3.2) K/mm3 Floyd # (Auto) 0.6 (0.1-0.6) K/mm3 Eos # (Auto) 0.1 (0-0.3) K/mm3 Baso # (Auto) 0.0 (0.0-0.1) K/mm3 Abs Immat Gran (auto) 0.01 (0.00-0.031) K/mm3 Absolute Neuts (auto) 4.0 (1.3-6.7) K/mm3 Absolute Nucleated RBC 0.000 (0.0-0.012) K/mm3 Nucleated RBC % 0.0 (0.0-0.2) % % Immature Plt Fraction 5.3 (0.9-11.2) % Sodium 137 (137-145) mmol/L Potassium 4.1 (3.4-5.0) mmol/L Chloride 106 (98-107) mmol/L Carbon Dioxide 28 (22-30) mmol/L Anion Gap 3 L (4-12) mmol/L BUN 16 (7-17) mg/dL Creatinine 1.10 H (0.7-1.0) mg/dL Estim Creat Clear Calc Not Reportable Estimated GFR 48 L (59 - ) Glucose 109 (65-110) mg/dL Calcium 8.9 (8.4-10.2) mg/dL Urine Color Yellow (Yellow) Urine Appearance Cloudy H (Clear) Urine pH 7.0 (5.0-9.0) Ur Specific Solomon 1.025 (1.001-1.035) Urine Protein 4+ H (Negative) mg/dL Urine Glucose (UA) Negative (Negative) mg/dL Urine Ketones Trace H (Negative) mg/dL Ur Blood (Man) 2+ H (Negative) Urine Nitrate Negative (Negative) Urine Bilirubin Negative (Negative) Urine Urobilinogen 1.0 (<2.0) mg/dL Leukocyte Esterase Rfl 2+ H (Negative) ISIDRO/UL Urine RBC >100 H (0-2) /hpf Urine WBC >100 H (0-3) /hpf Ur Squamous Epith Cells None seen (Few) /hpf Urine Bacteria None seen /hpf Urine Casts 3-5 <Hilaria Patterson PA-C - Last Filed: 02/28/24 21:27> Critical Care Time Critical Care Time Critical Care Time: No <Hilaria Patterson PA-C - Last Filed: 02/28/24 21:27> Discharge Plan Discharge Clinical Impression: Acute UTI <Basia Valencia APRN - Last Filed: 02/28/24 16:58> Patient Disposition: Home, Self-Care <Basia Valencia APRN - Last Filed: 02/28/24 16:58> Condition: Stable <Basia Valencia APRN - Last Filed: 02/28/24 16:58> Instructions: Antibiotic Form, Urinary Tract Infection in Older Adults (ED) <Basia Valencia APRN - Last Filed: 02/28/24 16:58> Additional Instructions: Return to the ER if you experience fever, abdominal pain with nausea and vomiting, you are unable to keep down liquids or solids, blood in the urine or any other symptoms that are concerning to you Remain well hydrated. Take oral antibiotics as prescribed Follow up with primary care doctor <Basia Valencia APRN - Last Filed: 02/28/24 16:58> Prescriptions: New cefdinir 300 mg capsule 300 mg PO Q12H 7 Days Qty: 14 0RF No Action misoprostol 200 mcg tablet 200 mcg PO DAILY Rx Instructions: administer with meal citalopram 20 mg Tablet 20 mg PO DAILY atorvastatin 80 mg tablet 80 mg PO HS pyridoxine (vitamin B6) 100 mg tablet 100 mg PO DAILY buspirone 15 mg tablet 15 mg PO TID sucralfate 100 mg/mL Suspension 1,000 mg PO ACHS Qty: 1000 1RF ferrous sulfate 325 mg (65 mg iron) tablet 325 mg PO BID Qty: 60 0RF Effer-K 25 mEq tablet, effervescent 25 meq PO BID losartan 50 mg tablet 50 mg PO DAILY Qty: 30 0RF levetiracetam 1,000 mg tablet 1,000 mg PO BID Qty: 60 0RF clopidogrel 75 mg Tablet 75 mg PO QAM Qty: 30 0RF pantoprazole 40 mg tablet,delayed release (DR/EC) 40 mg PO BID Qty: 60 11RF <Basia Valencia APRN - Last Filed: 02/28/24 16:58> Follow-up/Referrals: Jeffery,Maria Del Carmen Horton MD [Primary Care Provider] - <Basia Valencia APRN - Last Filed: 02/28/24 16:58>
[2024-02-28 17:53] LABS: Add Urine Microscopic? YES; Appearance Urine Cloudy (Clear); Bacteria Urine None Seen /hpf; Bilirubin Urine Negative (Negative); Blood Urine 2+ (Negative); Color Urine Yellow (Yellow); Glucose Urine UA Negative (Negative); Ketones Urine Trace mg/dL (Negative); Leukocyte Esterase Ur 2+ LEU/UL (Negative); Nitrate Urine Negative (Negative); Protein Urine 4+ mg/dL (Negative); RBC Urine >100 /hpf (0-2); Specific Grav Ur 1.025 (1.001-1.035); Squamous Epithelial Cell Urine None Seen /hpf (Few); WBC Urine >100 /hpf (0-3)
[2024-02-28] MEDS: FLUCONAZOLE 150 MG TABLET PO (19:44)
[2024-02-28 20:49] LABS: Basophils Percent Auto 0.5 % (0.2-1.2); Eosinophils Absolute Auto 0.1 K/mm3 (0-0.3); Eosinophils Percent Auto 1.5 % (0-4.4); Hematocrit 34.1 % (37.0-47.0); Hemoglobin 11.2 g/dL (12.0-15.0); Immature Granulocyte Absolute 0.01 K/mm3 (0.00-0.031); Immature Granulocyte Percent A 0.2 % (0-0.5); Immature Platelet Fraction Pct 5.3 % (0.9-11.2); Lymphocytes Absolute Auto 1.33 K/mm3 (0.9-3.2); Mean Corpuscular HGB Conc 32.8 g/dl (32-36); Mean Corpuscular Hemoglobin 27.6 pg (26-34); Mean Platelet Volume 10.3 fl (7.4-10.4); Monocytes Absolute Auto 0.6 K/mm3 (0.1-0.6); Monocytes Percent Auto 9.6 % (2.6-8.5); Neutrophils Percent Auto 66.2 % (45.5-73.1); Platelet Count Result 187 k/mm3 (150-375); Red Blood Count 4.06 M/mm3 (4.2-5.4); Red Cell Distribution Width 19.2 % (11.5-14.5); White Blood Count 6.1 K/mm3 (4.5-10.0)
[2024-02-28 20:59] LABS: Anion Gap 3 mmol/L (4-12); Blood Urea Nitrogen 16 mg/dL (7-17); Calcium 8.9 mg/dL (8.4-10.2); Carbon Dioxide 28 mmol/L (22-30); Chloride 106 mmol/L (98-107); Estimated Glomerular Filt Rate 48; Glucose 109 mg/dL (65-110); Potassium 4.1 mmol/L (3.4-5.0); Sodium 137 mmol/L (137-145)
[2024-02-28] MEDS: CEFDINIR 300 MG CAPSULE PO (21:34)
[2024-02-28 21:39] VITALS: BP 131/88; PULSE 66; RESP 16; O2SAT 97
== END 2024-02-28 21:40 | disposition home or self-care (01) ==
PROVIDERS: Registered Nurse; Emergency Provider Physician Assistant; PCP Internal Medicine Gastroenterology
DX: N39.0 Urinary tract infection, site not specified (principal); I12.9 Hypertensive chronic kidney disease with stage 1 through stage 4 chronic kidney disease, or unspecified chronic kidney disease; N18.9 Chronic kidney disease, unspecified; D50.9 Iron deficiency anemia, unspecified; G40.909 Epilepsy, unspecified, not intractable, without status epilepticus; Z98.84 Bariatric surgery status; Z98.1 Arthrodesis status; Z96.653 Presence of artificial knee joint, bilateral; Z90.49 Acquired absence of other specified parts of digestive tract; Z79.899 Other long term (current) drug therapy; Z79.02 Long term (current) use of antithrombotics/antiplatelets
CPT/HCPCS: 36415; 80048; 81001; 85025; 85055; 87086; 99283; A9270

== ENCOUNTER 2024-07-13 10:30 | Emergency (ER) | payer MEDICARE, OTHER, SELFPAY ==
[2024-07-13 10:31] VITALS: BP 196/92; PULSE 75; RESP 16; TEMP 36.6; O2SAT 99
--- OUTSIDE RECORDS SUMMARY | 2024-07-13 11:06 | XMS_ITS | Clinical Summary ---
Author Organization [facility] Address [address] [place] [address] Care Team Providers Care Foundry Operator Name Role Phone Maria Del Carmen Gil MD Primary Care Provider Allergies Active Allergy Reactions Criticality Noted Date Comments Morphine Unknown 11/06/2020 Naproxen Other (see comment) 11/06/2020 NSAIDS cardiac arrest Medications carvedilol 25 MG tablet Take 25 mg by mouth 2 (two) times daily. Active clopidogrel 75 MG tablet Take 75 mg by mouth daily. Active potassium chloride 20 MEQ packet Take 20 mEq by mouth 2 (two) times daily. Active pantoprazole EC 40 MG tablet Take 40 mg by mouth daily. Active atorvastatin 80 MG tablet Take 80 mg by mouth nightly at bedtime. Active losartan 100 MG tablet Take 100 mg by mouth daily. Active chlorthalidone 25 MG tablet Take 25 mg by mouth daily. Active B Complex Vitamins (VITAMIN B COMPLEX OR) Take 1 tablet by mouth daily. Active Multiple Vitamin (MULTIVITAMIN OR) Take 1 capsule by mouth daily. Active acetaminophen 325 MG tablet Take 650 mg by mouth every 4 (four) hours as needed. 07/22/2020 Active [place]-3 Fatty Acids (OMEGA-3 FISH OIL OR) Take 1 capsule by mouth daily. Active VITAMIN E HIGH POTENCY OR Take 200 Units by mouth daily. Active calcium carbonate 1250 (500 Ca) MG chewable tablet Chew 500 mg by mouth daily. 07/31/2020 Active calcium citrate 950 (200 CA) MG Tab tablet Take 950 mg by mouth daily. 07/23/2020 Active vitamin D3, cholecalciferol , (VITAMIN D-3) 10 MCG (400 UNIT) tablet Take 400 Units by mouth daily. Active vitamin B-12 1000 MCG tablet Take 1,000 mcg by mouth daily. 07/31/2020 Active ferrous sulfate EC 324 MG tablet Take 65 mg by mouth. Active magnesium oxide 400 MG tablet Take 400 mg by mouth 3 (three) times daily. 07/31/2020 Active Pyridoxine HCl 25 MG Tab Take 1 tablet by mouth daily. Active thiamine 100 MG Tab Take 1 tablet by mouth daily. 07/31/2020 Active Active Problems Problem Noted Date Diagnosed Date Neurogenic bladder due to old stroke 11/12/2020 Family History Medical History Relation Comments No Known Problems Father No Known Problems Mother Relation Status Comments Father Mother Social History Tobacco Use Types Packs/Day Years Used Date Smoking Tobacco: Never Smokeless Tobacco: Never Alcohol Use Standard Drinks/Week Comments Not Currently 0 (1 standard drink = 0.6 oz pur e alcohol) Comments No Sex and Gender Information Value Date Recorded Sex Assigned at Not on file Legal Sex Female 9:47 AM CDT Gender Identity Not on file Sexual Orientation Not on file Last Filed Vital Signs Vital Sign Reading Time Taken Comments Blood Pressure 152/75 11/12/2020 9:30 AM CDT Pulse 72 11/12/2020 9:30 AM CDT Temperature 36.4 C (97.5 F) 11/12/2020 9:30 AM CDT Respiratory Rate 16 11/12/2020 9:30 AM CDT Oxygen Saturation 100% 11/12/2020 9:30 AM CDT Inhaled Oxygen Concentration - - Weight 49.5 kg (109 lb 2 oz) 11/12/2020 6:21 AM CDT Height 157.5 cm (5' 2 ) 11/12/2020 6:21 AM CDT Body Mass Index 19.96 11/12/2020 6:21 AM CDT Plan of Treatment Health Maintenance Due Date Last Done Comments DTaP, Tdap and Td Vaccines ( 1 - Tdap) 1961 Zoster Vaccines (1 of 2) 1992 Annual Medicare Wellness Visit 2007 Dexa Scan (General) 2007 Pneumococcal Vaccine: 65+ Years (1 of 1 - PCV) 2007 RSV Immunization or 60+ Years (1 - 1-dose 75+ series) 2017 COVID-19 Vaccine (3 - 2023-2 5 season) 2023 06/25/2020, 06/03/2020 Meningococcal B Vaccine Aged Out No l onger eligible based on patient's age to complete this topic Meningococcal Vaccine Aged Out No rip gale eligible based on patient's age to complete this topic RSV Immunizations Under 20 Months Aged Out No longer eligible b ased on patient's age to complete this topic Insurance [facility] Care Teams Foundry Operator Relationship Specialty Start Date End Date Maria Del Carmen Gil MD [address] [place] [address] PCP - General INTERNAL MEDICINE 11/06/20
--- OUTSIDE RECORDS SUMMARY | 2024-07-13 11:06 | XMS_ITS | Referral Summary ---
Author Organization [facility] Address [address] [place] [address] Care Team Providers Care Party Plan Sales Director Name Role Phone Fernando Caputo MD Primary Care Provider [phone] Encounters Date Type Department Care Team Description 06/15/2024 Telephone [facility] [address] [place] [address] Ann Jaimes, RN from Last 3 Months Allergies Active Allergy Reactions Criticality Noted Date Comments Ibuprofen Anaphylaxis High Morphine Nausea & Vomiting,Nausea And Vomiting,Other (See comments),Rash,Unknown Medium 06/18/2014 DIFFICULT TO WAKE UP FROM DIFFICULT TO WAKE UP FROM Difficult to wake up from (imported from other chart) DIFFICULT TO WAKE UP FROM Difficult to wake up from (imported from other chart) Naproxen Anaphylaxis,Other (S ee comments) High 09/12/2018 NSAIDS cardiac arrest Nsaids (Non-Steroidal Anti-Inflammatory Drug) Anaphylaxis,Other (See comments) High 01/17/2019 Imported from other chart. Reported to cause cardiac arrest? Medications atenolol (TENORMIN) 50 mg tablet 9 Active cyanocobalamin (Vitamin B-12) 1,000 mcg tablet Take 1,000 mcg by mouth Active losartan-hydroC HLOROthiazide (HYZAAR) 50-12.5 mg per tablet 9 Active omega 4-gpr-vun-fish oil (FISH OIL) 60-90-500 mg capsule Take by mouth Active pantoprazole (PROTONIX) 40 mg EC tablet 9 Active multivitamin capsule Take 1 capsule by mouth daily Active b complex vitamins capsule Take 1 capsule by mouth daily Active pyridoxine (VITAMIN B-6) 500 mg tablet Take 1 tablet (500 mg total) by mouth daily Active thiamine (VITAMIN B-1) 100 mg tablet Take 100 mg by mouth daily Active magnesium oxide 500 mg capsule Take by mouth A ctive ferrous sulfate ER 324 mg (65 mg iron) EC tabletIndicatio ns:Iron Deficiency Anemia Take 65 mg by mouth Active tiZANidine (ZANAFLEX) 4 mg tabletIndicatio ns:Muscle Spasm Take 1 tablet (4 mg total) by mouth every 6 (six) hours as needed for muscle spasms 90 tablet 2 9 Active Additional Information Patient not taking.Reported on 09/23/2023 Active Problems Problem Noted Date Diagnosed Date Spinal stenosis of lumbar re gion with neurogenic claudication 06/21/2018 Assessment & Plan (08/02/2018 12:25 PM CDT): Assessment Healed fusion L3-S1 with no significant adjacent level abnormalities Plan Acceptance of condition. She was given Zanaflex for occasional muscle spasm and told to follow up with her primary care if she needed refill Assessment & Plan (06/21/2018 10:28 AM CDT): Assessment Status post fusion L3-S1 with continued pain but no radicular symptoms Plan CT scan lumbar spine and re-evaluation Social History Tobacco Use Types Packs/Day Years Used Date Smoking Tobacco: Never Passive Smoke Exposure: Never Smokeless Tobacco: Never Tobacco Cessation:Counseling Given: No Alcohol Use Standard Drinks/Week Comments Never 0 (1 standard drink = 0.6 oz pur e alcohol) AUDIT-C Answer Date Recorded Q1: How often do you have a drink containing alcohol? Never 10/31/2023 Q2: How many drinks containi ng alcohol do you have on a typical day when you are drinking? Patient does not drink Q3: How often do you have si x or more drinks on one occasion? Never 10/31/2023 PHQ-2 Answer Date Recorded PHQ-2 Score 0 11/25/2018 Personal Safety Answer Date Recorded Have you ever been in or are you currently in a harmful physical or emotional relationship or is someone making you feel afraid or unsafe? 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 Gender Identity Not on file Sexual Orientation Not on file Occupation Industry Job Start Date Job End Date RETIRED Not on file Not on file Not on file Last Filed Vital Signs Vital Sign Reading Time Taken Comments Blood Pressure 164/84 10/31/2023 12:40 PM CDT Pulse 65 10/31/2023 12:40 PM CDT Temperature 36.3 C (97.3 F) 10/31/2023 12:20 PM CDT Respiratory Rate 17 10/31/2023 12:40 PM CDT Oxygen Saturation 96% 10/31/2023 12:40 PM CDT Inhaled Oxygen Concentration - - Weight 47.2 kg (104 lb) 10/31/2023 10:55 AM CDT Height 149.9 cm (4' 11 ) 10/31/2023 10:55 AM CDT Body Mass Index 21.01 10/31/2023 10:55 AM CDT Plan of Treatment Not on file Insurance [facility] PPO MEDICARE [facility] Address: [address] [address] [place] [address] [address] MEDICARE T [facility] Advance Directives For more information, please contact: [phone] * Full Code (Latest Code Status on File) Date Activated Date Inactivated Comments 10/31/2023 10:54 AM 10/31/2023 5:10 PM Care Teams Party Plan Sales Director Relationship Specialty Start Date End Date Fernando Caputo MD [address] [place] [address] PCP - General Internal Medicine 06/15/24
--- OUTSIDE RECORDS SUMMARY | 2024-07-13 11:06 | XMS_ITS | Clinical Summary ---
Author Organization [facility] Address [address] [place], [place] [id number] Care Team Providers Care Crayon Molding Machine Operator Name Role Phone Unavailable Primary Care Provider Unavailabl e Allergies Active Allergy Reactions Criticality Noted Date Comments Ibuprofen Anaphylaxis High 01/17/2019 Morphine Nausea And Vomiting,Rash,Other (See Comments) Low 06/18/2014 DIFFICULT TO WAKE UP FROM Difficult to wake up from (imported from other chart) DIFFICULT TO WAKE UP FROM Naproxen Anaphylaxis High 09/12/2018 Nsaids Anaphylaxis High 01/17/2019 Medications acetaminophen (TYLENOL) 325 MG tablet Take 2 tablets (650 mg total) by mouth every 4 (four) hours as needed for mild pain or Temp > or equal to 101F (38.3C). 0 07/30/2020 Active calcium carbonate (TUMS) 500 MG chewable tablet Chew 1 tablet (500 mg total) daily. 0 07/31/2020 Active cyclobenzaprine (FLEXERIL) 10 MG tablet Take 1 tablet (10 mg total) by mouth 3 (three) times a day as needed for muscle spasms. 30 tablet 07/30/2020 Active ferrous sulfate 325 (65 FE) MG tablet Take 1 tablet by mouth daily. 0 07/31/2020 Active magnesium oxide 400 (240 Mg) MG tablet Take 1 each (400 mg total) by mouth 3 (three) times a day with meals. 0 07/31/2020 Active multivitamin w/ minerals (THERA M PLUS) tablet tablet Take 1 tablet by mouth daily. 0 07/31/2020 Active senna-docusate (SENOKOT-S) 8.6-50 MG Take 1 tablet by mouth 2 (two) times a day as needed for constipation . 0 07/30/2020 Active thiamine (thiamine) 100 MG tablet Take 1 tablet (100 mg total) by mouth daily. 0 07/31/2020 Active vitamin B-12 (cyanocobalamin ) 1000 MCG tablet Take 1 tablet (1,000 mcg total) by mouth daily. 0 07/31/2020 Active vitamin B-6 (B-6) 50 MG tablet Take 1 tablet (50 mg total) by mouth daily. 0 07/31/2020 Active Active Problems Problem Noted Date Diagnosed Date Cerebrovascular accident 07/22/2020 Social History Tobacco Use Types Packs/Day Years Used Date Smoking Tobacco: Never Smokeless Tobacco: Never Alcohol Use Standard Drinks/Week Comments Not Currently 0 (1 standard drink = 0.6 oz pur e alcohol) Comments Unknown Sex and Gender Information Value Date Recorded Sex Assigned at Not on file Legal Sex Female 12:50 PM EDT Gender Identity Not on file Sexual Orientation Not on file Last Filed Vital Signs Vital Sign Reading Time Taken Comments Blood Pressure 127/76 07/31/2020 8:00 AM CDT Pulse 69 07/31/2020 8:00 AM CDT Temperature 36.4 C (97.5 F) 07/31/2020 8:00 AM CDT Respiratory Rate 18 07/31/2020 8:00 AM CDT Oxygen Saturation 98% 07/31/2020 8:00 AM CDT Inhaled Oxygen Concentration - - Weight 56.3 kg (124 lb 3.2 oz) 07/29/2020 4:05 P M CDT Height 157.5 cm (5' 2 ) 07/22/2020 5:06 PM CDT Body Mass Index 22.72 07/22/2020 5:06 PM CDT Plan of Treatment Not on file Advance Directives * Full Resuscitation (Latest Code Status on File) Date Activated Date Inactivated Comments 07/22/2020 5:56 PM 07/31/2020 2:47 PM
--- OUTSIDE RECORDS SUMMARY | 2024-07-13 11:06 | XMS_ITS | Encounter Summary ---
Author Organization [facility] Address [address] [place] [address] Care Team Providers Care Surveyor Helper Name Role Phone Maria Del Carmen Gil MD Primary Care Provider Encounter Details Date Type Department Care Team (Late st Contact Info) Description 11/12/2020 Prep for Procedure [facility] Pre-Admission Testing [address] [place], [place] [id number] Bradley Turner MD 3 [facility] [place] [address] Social History Tobacco Use Types Packs/Day Years Used Date Smoking Tobacco: Never Smokeless Tobacco: Never Alcohol Use Standard Drinks/Week Comments Not Currently 0 (1 standard drink = 0.6 oz pur e alcohol) Comments No Sex and Gender Information Value Date Recorded Sex Assigned at Not on file Legal Sex Female 9:47 AM CDT Gender Identity Not on file Sexual Orientation Not on file COVID-19 Exposure Response Date Recorded In the last month, have you been in contact with someone who was confirmed or suspected to have Coronavirus / COVID-19? No / Unsure 11/11/2020 2:01 PM CDT documented as of this encounter Plan of Treatment Not on file documented as of this encounter Results * XR CHEST PA+LAT (11/11/2020 2:12 PM CDT) Anatomical Region Laterality Modality Chest Radiographic Tresa ging 11/11/2020 2:18 PM CDT Impressions 11/11/2020 2:19 PM CDT IMPRESSION: No acute findings Referred By: BRADLEY TURNER Interpreted By: Oni Flower MD, 11/11/2020 2:18 PM Narrative 11/11/2020 2:19 PM CDT 2 VIEWS OF THE CHEST Clinical history: Shortness of breath Comparison: None 2 views of the chest demonstrate mild cardiomegaly. The pulmonary vessels are normally distributed. The Lungs are clear. No consolidations or effusions are seen. Procedure Note Oni Flower MD - 11/11/2020 2 VIEWS OF THE CHEST Clinical history: Shortness of breath Comparison: None 2 views of the chest demonstrate mild cardiomegaly. The pulmonary vesselsare normally distributed. The Lungs are clear. No consolidations oreffusions are seen. IMPRESSION: No acute findings Referred By: BRADLEY TURNER Interpreted By: Oni Flower MD, 11/11/2020 2:18 PM Bradley Turner MD GENERAL IMAGING Kori l Result * PTT, PARTIAL THROMBOPLASTIN TIME (11/10/2020 9:37 AM CDT) PTT 28.5 25.1 - 36.5 SEC 11/10/2020 10:28 AM CDT [facility] 11/10/2020 9:37 AM CDT Bradley Turner MD LABORATORY Kori l Result [facility] [address] [place] [address], [place] [phone] * (ABNORMAL) PROTIME/INR, VENOUS (11/10/2020 9:37 AM CDT) Pathologist [facility] PROTIME 13.0(H) 10.2 - 12.9 SEC 11/10/2020 10:28 AM CDT [facility] INR 1.1 11/10/2020 10:28 AM CDT [facility] Comment: Recommended INR Therapeutic Goals: 2.0-3.0 Routine Therapy 2.5-3.5 Mechanical Prosthetic Valves (High Risk) 11/10/2020 9:37 AM CDT Bradley Turner MD LABORATORY Kori l Result [facility] [address] [place] [address], * (ABNORMAL) BASIC METABOLIC PANEL (11/10/2020 9:37 AM CDT) Pathologist [facility] GLUCOSE 98 70 - 99 MG/DL 11/10/2020 10:17 AM CDT [facility] BUN 29(H) 7 - 18 MG/DL 11/10/2020 10:17 AM CDT [facility] CREATININE S/P/B 1.38(H) 0.55 - 1.02 MG/DL 11/10/2020 10:17 AM CDT [facility] SODIUM S/P/B 138 136 - 145 MMOL/L 11/10/2020 10:17 AM CDT [facility] POTASSIUM S/P/B 4.8 3.5 - 5.1 MMOL/L 11/10/2020 10:17 AM CDT [facility] CHLORIDE S/P/B 108 100 - 108 MMOL/L 11/10/2020 10:17 AM CDT [facility] CO2 24.5 21 - 32 MMOL/L 11/10/2020 10:17 AM CDT [facility] CALCIUM S/P/B 9.0 8.5 - 10.1 MG/DL 11/10/2020 10:17 AM CDT [facility] ANION GAP 5.5 5 - 15 MMOL/L 11/10/2020 10:17 AM CDT [facility] BUN CREATININE RATIO 21.0 6 - 26 11/10/2020 10:17 AM CDT [facility] EGFR NON-AFR. AMER. 37(L) >90 ML/MIN/1.7 3 M2 11/10/2020 10:17 AM CDT [facility] EGFR AFR. AMER. 42(L) >90 ML/MIN/1.7 3 M2 11/10/2020 10:17 AM CDT [facility] Comment: NOTE: eGFR is not calculated for patients <18 years of age. This is an estimated GFR (CKD EPI) and should not be used for calculating drug doses. 11/10/2020 9:37 AM CDT Bradley Turner MD LABORATORY Kori renteria Result [facility] [address] [place] [address], [place] [phone] * (ABNORMAL) CBC W/DIFF AUTOMATED (11/10/2020 9:37 AM CDT) WBC 5.8 4.5 - 11.0 x10'3/uL 11/10/2020 9:57 AM CDT [facility] RBC 3.54(L) 4.20 - 5.40 x10'6/uL 11/10/2020 9:57 AM CDT [facility] HGB 11.1(L) 12.0 - 16.0 G/DL 11/10/2020 9:57 AM CDT [facility] HCT 34.2(L) 38.0 - 48.0 % 11/10/2020 9:57 AM CDT [facility] MCV 96.6 81.0 - 99.0 FL 11/10/2020 9:57 AM CDT [facility] MCH 31.4(H) 27.0 - 31.0 PG 11/10/2020 9:57 AM CDT [facility] MCHC 32.5 32.0 - 36.0 G/DL 11/10/2020 9:57 AM CDT [facility] RDW 12.4 11.5 - 14.5 % 11/10/2020 9:57 AM CDT [facility] PLT 217 130 - 400 x10'3/uL 11/10/2020 9:57 AM CDT [facility] MPV 10.5 9.3 - 12.2 FL 11/10/2020 9:57 AM CDT [facility] DIFFERENTIAL TYPE AUTOMATED DIFFERENTIAL 11/10/2020 9:57 AM CDT [facility] NEUTROPHILS % 65.7 % 11/10/2020 9:57 AM CDT [facility] LYMPHOCYTES % 24.1 % 11/10/2020 9:57 AM CDT [facility] MONOCYTES % 6.9 % 11/10/2020 9:57 AM CDT [facility] EOSINOPHILS 1.9 % 11/10/2020 9:57 AM CDT [facility] BASOPHILS 1.2 % 11/10/2020 9:57 AM CDT [facility] IMMATURE GRANS % 0.2 % 11/11/19 9:57 AM CDT [facility] ABS. NEUTROPHILS TOTAL 3.79 1.80 - 7.70 x10'3/uL 11/10/2020 9:57 AM CDT [facility] ABS. LYMPHOCYTES 1.39 1.00 - 4.80 x10'3/uL 11/10/2020 9:57 AM CDT [facility] ABS. MONOCYTES 0.40 0.24 - 0.86 x10'3/uL 11/10/2020 9:57 AM CDT [facility] ABS. EOSINOPHILS 0.11 0.04 - 0.36 x10'3/uL 11/10/2020 9:57 AM CDT [facility] ABS. BASOPHILS 0.07 0.01 - 0.08 x10'3/uL 11/10/2020 9:57 AM CDT [facility] ABS. IMMATURE GRANULOCYTES 0.01 0.00 - 0.49 x10'3/uL 11/10/2020 9:57 AM CDT [facility] 11/10/2020 9:37 AM CDT Bradley Turner MD LABORATORY Kori l Result Performing Organization Address City/State/[facility] Co de Phone Number [facility] [address] [place] [address], documented in this encounter Visit Diagnoses Diagnosis Neurogenic bladder due to old stroke Preoperative testing Preoperative examination, unspecified Neurogenic bladder due to old stroke- Primary Preoperative testing Preoperative examination, unspecified documented in this encounter Care Teams Surveyor Helper Relationship Specialty Start Date End Date Maria Del Carmen Gil MD [address] [address] PCP - General INTERNAL MEDICINE 11/06/20 documented as of this encounter
--- OUTSIDE RECORDS SUMMARY | 2024-07-13 11:06 | XMS_ITS | Continuity of Care Document ---
Author Organization [facility] Address [address] [place] [address] Phone Care Team Providers Care Electrical Continuity Inspector Name Role Phone Brisa ORO, Tyler Unavailable Unavailable Allergies, Adverse Reactions, Alerts Substance Reaction Status Criticality ibuprofen Active No Information naproxen Active No Information Medications Medication Instructions Dosage Effective Dates (start - stop) Status Comments CALCIUM CITRATE (unknown strength) Not Available - Active LOSARTAN-HYDROCHLOROTHI AZIDE (unknown strength) Not Available - Active ATENOLOL (unknown strength) Not Available - Active PANTOPRAZOLE SODIUM (unknown strength) Not Available - Active LECITHIN (unknown strength) Not Available - Active Advance Directives Directive Yes / No Effective Date File Name No Information Encounters Encounter Description Practice Location Reason(s) For Visit Diagnoses Date Provider Providers Copied on Encounter [facility], [address], [facility], tel:[phone] [facility] No Information 2 Brisa Scott. [address] [facility] [place], [id number] . tel: [phone] [facility], [address] [place] [address], [facility], tel:[phone] [facility] CervicalgiaPain, Low Back 2 Brisa Scott. [address], [place], [place], [id number] . tel: [phone] [facility], [address] [place] [address], [facility], tel:[phone] [facility] No Information 2 Brisa Scott. [address], [place], [place], [id number] . tel:[phone] [facility], [address], [place], [address], tel:[phone] [facility] My back hurts (chief complaint) CervicalgiaCervic al StrainPain, Low Back 2 Brisa Scott. [address], [place], [place], [id number] . tel:[phone] Referring Provider: [address], [place], [address] . tel:[phone] Family History Family Member Type Diagnosis Age At Onset No Information Payers Payer name Insurance type Covered libertarian ID Authoriza tion(s) No Information Social History Type Description Quantity Date Captured Comments Sex Female Smoking Status No Information Chief Complaint And Reason For Visit No Information Reason For Referral Reason For Referral No Information Plan Of Treatment Date Type Action Status Referral Ordered: RADEX SPI LUMBOSAC 2/3 VIEWS ordered Referral Ordered: RADEX SPI CRV 2/3 VIEWS ordered History Of Present Illness Encounter Date Complaint History Of Prese nt Illness No Information Functional Status Date Functional Assessmen t No Information Instructions Date Instruction Additional Infor mation No Information Assessments Type Assessment Date No Information Patient Care Teams Name Effective Dates (start - stop) Status Members No Information
--- OUTSIDE RECORDS SUMMARY | 2024-07-13 11:06 | XMS_ITS | Clinical Summary ---
Author Organization [facility] Address [address] [place] [address] Care Team Providers Care Air Traffic Control Specialist Name Role Phone Maria Del Carmen Gil MD Primary Care Provider Allergies Active Allergy Reactions Criticality Noted Date Comments Ibuprofen Anaphylaxis High 01/17/2019 Morphine Nausea and Vomiting,Other (See Comments) Low 06/18/2014 DIFFICULT TO WAKE UP FROM Nsaids (Non-Steroidal Anti-Inflammatory Drug) Anaphylaxis High 01/17/2019 Medications atenolol (TENORMIN) 50 mg tablet 11/27/2018 Active cyanocobalamin 1,000 mcg Tablet Take 1,000 mcg by mouth. Active ferrous sulfate 324 mg (65 mg iron) Tablet, Delayed Release (E.C.) Take 65 mg by mouth. Active losartan-hydroC HLOROthiazide (HYZAAR) 50-12.5 mg tablet 05/27/2018 Active magnesium oxide 500 mg Capsule Take by mouth. Active Multivitamin Capsule Take 1 Capsule by mouth. Active omega 1-cjq-ape-fish oil 60-90-500 mg Capsule Take by mouth. Active pantoprazole (PROTONIX) 40 mg Tablet, Delayed Release (E.C.) 05/09/2018 Active pyridoxine, vitamin B6, 500 mg Tablet Take 500 mg by mouth. Active thiamine mononitrate, vit B1, (THIAMINE) 100 mg tablet Take 100 mg by mouth. Active vitamin B complex Capsule Take 1 Capsule by mouth. Active Active Problems Problem Noted Date Diagnosed Date Meningioma 01/16/2019 Family History Medical History Relation Name Comments Cancer Brother Cancer Father Emphysema Father No Known Problems Mother Relation Name Status Comments Brother Father Mother Social History Tobacco Use Types Packs/Day Years Used Date Smoking Tobacco: Never Alcohol Use Standard Drinks/Week Comments Never 0 (1 standard drink = 0.6 oz pur e alcohol) Comments Unknown Sex and Gender Information Value Date Recorded Sex Assigned at Not on file Legal Sex Female 9:30 PM CDT Gender Identity Not on file Sexual Orientation Not on file Occupation Industry Job Start Date Job End Date retired Not on file Not on file Not on file Last Filed Vital Signs Vital Sign Reading Time Taken Comments Blood Pressure 170/89 01/17/2019 11:15 AM CDT Pulse - - Temperature - - Respiratory Rate - - Oxygen Saturation - - Inhaled Oxygen Concentration - - Weight 57.2 kg (126 lb) 02/20/2019 2:23 PM INSURANCE COMMISSIONER Height 157.5 cm (5' 2 ) 02/20/2019 2:23 PM INSURANCE COMMISSIONER Body Mass Index 23.05 02/20/2019 2:23 PM INSURANCE COMMISSIONER Plan of Treatment Health Maintenance Due Date Last Done Comments DTAP/TDAP/TD VACCINES (1 - Tdap) 1961 PNEUMOCOCCAL VACCINE 50+ YEARS (1 of 1 - PCV) 04/30/18 93 ZOSTER VACCINE (1 of 2) 1992 OSTEOPOROSIS SCREENING 2007 RSV VACCINE (60+ or ) (1 - 1-dose 75+ series) 2017 INFLUENZA VACCINE (#1) 2023 Insurance MEDICARE PART A AND B [employer] CHOICE POS II Care Teams Air Traffic Control Specialist Relationship Specialty Start [place] [address] [address] [address] PCP - General Gastroenterology 01/09/19
--- OUTSIDE RECORDS SUMMARY | 2024-07-13 11:06 | XMS_ITS | Encounter Summary ---
Author Organization [facility] Address [address] [facility] [place] [address] Care Team Providers Care Java Tech Lead Name Role Phone Maria Del Carmen Gil MD Primary Care Provider [phone] Maria Del Carmen Gil MD Unavailable [phone] Maria Del Carmen Gil MD Unavailable [phone] Encounter Details Date Type Department Care Team (Latest Contact Info) Description 07/22/2020 11:46 AM CDT Hospital Encounter [facility] [id number] [place] [address] [place] [address] [place] [address] [facility] Social History Tobacco Use Types Packs/Day Years Used Date Smoking Tobacco: Never Smokeless Tobacco: Never Alcohol Use Standard Drinks/Week Comments Never 0 (1 standard drink = 0.6 oz pur e alcohol) AUDIT-C Answer Date Recorded Q1: How often do you have a drink containing alcohol? Patient unable to answer 06/07/2024 Q2: How many drinks containi ng alcohol do you have on a typical day when you are drinking? Patient unable to answer Q3: How often do you have si x or more drinks on one occasion? Patient unable to answer 06/07/2024 Overall Financial Resource Strain (CARDIA) Answe r Date Recorded How hard is it for you to pa y for the very basics like food, housing, medical care, and heating? Patient unable to answer 06/07/2024 Housing Stability Vital Sign Answer Sergey e Recorded In the last 12 months, was t here a time when you were not able to pay the mortgage or rent on time? Patient unable to answer 06/07/2024 Number of Times Moved in the Last Year Not on fi le 06/07/2024 At any time in the past 12 m [facility], were you homeless or living in a senior care (including now)? Patient unable to answer 06/07/2024 Sex and Gender Information Value Date Recorded Sex Assigned at Not on file Gender Identity Not on file Sexual Orientation Not on file COVID-19 Exposure Response Date Recorded In the last 10 days, have yo u been in contact with someone who was confirmed or suspected to have Coronavirus/COVID-19? Unable to assess 07/22/2021 3:56 PM CDT documented as of this encounter Functional Status Functional Status Response Date of Assess ment Is person deaf or have serious hearing difficult y? No 07/22/2020 Is person blind or have serious difficulty seein g? No 07/22/2020 Does person have serious dif ficulty walking/climbing stairs? No 07/22/2020 Does person have difficulty dressing/bathing? No 07/22/2020 Does person have difficulty doing errands alone? No 07/22/2020 Cognitive Status Response Date of Assessm ent Does person have difficulty concentrating/remembering/making decisions? Yes 07/22/2020 documented as of this encounter Plan of Treatment Upcoming Encounters Date Type Department Care Team (Late st Contact Info) Description 11/27/2024 1:00 PM CDT Office Visit [facility] - Neurology [address] [place] [phone] Kyung Haq APRN-PERFORMANCE ARCHITECT [address] [place] [id number] documented as of this encounter Visit Diagnoses Not on filedocumented in this encounter Additional Health Concerns Infection Onset Date Last Indicated Resolved Time COVID-19 Under Investigation 10/05/2021 10/05/2021 10/05/2021 11:10 AM CDT documented as of this encounter Care Teams Java Tech Lead Relationship Specialty Start Date End Date Maria Del Carmen Gil MD [address] [place] [address] PCP - General 07/22/20 07/23/20 Maria Del Carmen Gli MD [address] [place] [address] Gastroenterology 07/22/20 Maria Del Carmen Gil MD [address] [place] [address] 07/15/20 documented as of this encounter
--- OUTSIDE RECORDS SUMMARY | 2024-07-13 11:06 | XMS_ITS | Clinical Summary ---
Author Organization [facility] Address [address] [place] [address] Phone Care Team Providers Care Buckle Wire Inserter Name Role Phone Provider, Not On File Primary Care Provider Unav ailable Social History Tobacco Use Types Packs/Day Years Used Date Smoking Tobacco: Never Assessed Comments Unknown Sex and Gender Information Value Date Recorded Sex Assigned at Not on file Legal Sex Female 1:36 PM CDT Gender Identity Not on file Sexual Orientation Not on file Last Filed Vital Signs Vital Sign Reading Time Taken Comments Blood Pressure 145/78 12/04/2015 10:50 AM CDT Pulse 58 12/04/2015 10:50 AM CDT Temperature 35.8 C (96.5 F) 12/04/2015 10:50 AM CDT Respiratory Rate 16 12/04/2015 10:50 AM CDT Oxygen Saturation 99% 12/04/2015 10:50 AM CDT Inhaled Oxygen Concentration - - Weight - - Height - - Body Mass Index - - Plan of Treatment Not on file Insurance MEDICARE Care Teams Buckle Wire Inserter Relationship Specialty Start Date End Date Provider, Not On File [place] PCP - General 11/12/15
--- OUTSIDE RECORDS SUMMARY | 2024-07-13 11:06 | XMS_ITS | Continuity of Care Document ---
Author Organization [facility] Address [address] [place] [address] Phone Care Team Providers Care Concrete Paving Machine Operator Name Role Phone Ankush Barrera MD Unavailable Unavailable Allergies, Adverse Reactions, Alerts Substance Reaction Status Criticality MORPHINE HCL Active No Information NSAIDS (Non-Steroidal Anti-Inflammatory Drug) Active No Information ibuprofen Active No Information Medications Medication Instructions Dosage Effective Dates (start - stop) Status Comments atenolol 50 mg tablet take 1 tablet by oral route every day 50 MG - Active cyanocobalamin (vit B-12) 1,000 mcg tablet take 1 capsule by oral route every day 1 capsule - Active ferrous sulfate 325 mg (65 mg iron) tablet take 1 capsule by oral route every day 1 capsule - Active losartan 50 mg-hydrochlorothiazi de 12.5 mg tablet take 1 tablet by oral route every day 1.00 tablet - Active magnesium oxide 500 mg tablet take 1 capsule by oral route every day 1 capsule - Active multivitamin capsule spray 1 capsule by oral route every day - Active Fish Oil 60 mg-90 mg-500 mg capsule,delayed release take 1 capsule by oral route every day 1 capsule - Active pantoprazole 40 mg tablet,delayed release take 1 tablet by oral route every day 40 MG - Active pyridoxine (vitamin B6) 500 mg tablet - Active thiamine mononitrate (vitamin B1) 100 mg tablet - Active vitamin B complex capsule - Active ondansetron HCl 4 mg tablet take 1 tablet by oral route 1/2 hour before meals - No Longer Active Procedures Procedure Date OFFICE [id number]-[id number]-KDDE-MED BODY MASS INDEX DOCD SYST BP >= 140 MM HG6 IT DIAST BP >= 90 MM HG Advance Directives Directive Yes / No Effective Date File Name No Information Encounters Encounter Description Practice Location Reason(s) For Visit Diagnoses Date Provider Providers Copied on Encounter OFFICE [facility], [address], [place], [place], [id number] , [place] tel: [phone] [facility] GI issues (chief complaint) Early satietyNauseaEpiga stric pain 0 Bruce Lechuga. [address] [facility], [address], [place], [place], [id number] , [place]. tel: [phone] Referring Provider: Win Gil, [address] [place] [address], [address]. [phone] Family History Family Member Type Diagnosis Age At Onset Problem Family history of celiac dis ease Problem Family history of ulcerative colitis Problem Family history of Crohn's di sease Problem Family history of cancer of the esophagus Problem Family history of stomach ca ncer Problem Family history of cancer of colon Payers Payer name Insurance type Covered democrat ID Authoriza tion(s) [employer] PPO CI [id number] MEDICARE MB [id number] Social History Type Description Quantity Date Captured Comments Alcohol Use Details Unknown Caffeine Use Details Unknown Tobacco Use Status Current non-smoker 20 Smoking Status Never smoker Non-Smoking Tobacco Use Details : No Details Available : No Details Available Sex Female Vital Signs Date / Time: Height Weight BMI Pulse Rate Blood Pressure Temperature Respiratory Rate Body Surface Area Head Circumference Head Circ. Percentile Wt./Hiram. Percentile BMI percentile Pulse Ox Inhaled Ox 3:31 PM 61.00 in 57.153 kg (126.00 lbs) 23.8 1 kg/m eter (2) 54 /min 190/93 mm[Hg] 1.57 meter(2) Chief Complaint And Reason For Visit From encounter dated 02/19/2020 15:30'. GI issues (chief complaint). Description: After Gastric Bypass, couldn't eat Got down to 90lbsHas epigastric pain with eating.Also has pain in upper left quadrant.Feels nauseated but does not vomit.Problems started since surgery (gastric bypass)Wants to be able to eat without getting sick.Cannot tell when full. PPIs do not help with symptoms.Weight is stable at this point. (170 was top weight down to 125 now)Has been seen by Dr. Chau's office for pain problems. Reason For Referral Reason For Referral No Information History Of Present Illness Encounter Date Complaint History Of Prese nt Illness GI issues After Gastric By pass, couldn't eat Got down to 90 lbsHas epigastric pain with eating.Also has pain in upper left quadrant.Feels nauseated but does not vomit.Problems started since surgery (gastric bypass)Wants to be able to eat without getting sick.Cannot tell when full. PPIs do not help with symptoms.Weight is stable at this point. (170 was top weight down to 125 now)Has been seen by Dr. Chau's office for pain problems. Functional Status Date Functional Assessmen t No Information Instructions Date Instruction Additional Infor mation Ondansetron take one 1/2 hour before mealsCall if problems. Related to Early satiety See above Related to Nause a See above Related to Epiga stric pain Handout Assessments Type Assessment Date assessment Early satiety assessment Nausea assessment Epigastric pain Mental Status Date Cognitive Assessment Orientation - [place] ed to time, place, person, situation. Patient Care Teams Name Effective Dates (start - stop) Status Members No Information
--- OUTSIDE RECORDS SUMMARY | 2024-07-13 11:06 | XMS_ITS | Continuity of Care Document ---
Author Organization [facility] Address [address] [address] Insurance Providers Payer Plan Claims Address Claims Phone Policy Number Group Number Relation Employer Guarantor Name Guarantor Guarantor Address Guarantor Phone MEDIC ARE [address], [facility] , [facility], [place] [address] tel:[phone] Self Nicole Patricia 1940 [address], [place] [address] MEDIC ARE tel:[phone] [id number] Self Nicole Patricia 1940 [address], [place] [address] [employer] [address], [place] [address] tel:[phone] Self Nicole Patricia 1940 [address] [place] [address] Problems Condition ICD9 code ICD10 code SNOMED code Start Date End Date S tatus Dysuria R30.0 Working Other marketing analyst (current) drug therapy Z79.899 Wo rking Frequency of micturition R35.0 Working Hematuria, unspecified R31.9 W orking Urgency of urination R39.15 Wor merlyn Pain due to genitourinary prosthetic devices, implants and grafts, initial encounter T83.84XA Working 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 Encounter for screening mammogram for malignant neoplasm of breast Z12.31 Workin g Epigastric pain R10.13 Working Retention of urine, unspecified R33.9 Working Urinary catheterization as the cause of abnormal reaction of the patient, or of later complication, without mention of misadventure at the time of the procedure Y84.6 Working Other mechanical complication of indwelling urethral catheter, initial encounter T83.091A Working Gastrojejunal ulcer, unspecified as acute or chronic, without hemorrhage or perforation K28.9 Working Pelvic and perineal pain R10.2 Working penitentiary (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 Z79.82 Working Results No Results Allergies, adverse reactions, alerts No known allergies and adverse reactions Medications No administered medications reported Vital Signs No vital signs reported Social History No smoking Hx information available
--- OUTSIDE RECORDS SUMMARY | 2024-07-13 11:06 | XMS_ITS | Clinical Summary ---
Author Organization [facility] Address [address] [facility] [place] [address] Care Team Providers Care Consumer Recruiter Name Role Phone Fernando Caputo MD Primary Care Provider [phone] Allergies Active Allergy Reactions Criticality Noted Date [...] 50-12.5 mg per tablet 9 Active omega 6-mxv-grk-fish oil (FISH OIL) 60-90-500 mg capsule Take by mouth Active pantoprazole DR (PROTONIX) 40 mg EC tablet 9 Active [...] Plan CT scan lumbar spine and re-evaluation Encounters Date Type Department Care Team Description 06/15/2024 Telephone [facility] [address] [place] [phone] Ann Jaimes RN from Last 3 Months Surgical History Surgery Date Site/Laterality Comments BARIATRIC SURGERY 01/28/2009 CHOLECYSTECTOMY HERNIA REPAIR HYSTERECTOMY CERVICAL FUSION 03/14/1998 C4-6 SPINAL FUSION 10/27/1998 L3-5 ALIF KNEE ARTHROSCOPY JOINT REPLACEMENT 03/31/2004 BILATERAL KNEE FL UPPER GI AIR CONTRAST W KUB 12/04/2015 Left FL UPPER GI AIR CONTRAST W KUB 11/12/2015 Left COLONOSCOPY Medical History Medical History Date Comments Hypertension GERD (gastroesophageal reflux disease) Stroke (HCC) Seizures (HCC) Urinary tract infection 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) Suprapubic catheter (HCC) Gastric ulcer 2023 Family History Medical History Relation Name Comments Cancer Brother Family history of malignant neoplasm - (Added by TW Conv) Cancer Father Cancer Other Family history of malignant neoplasm - Relation: Grandmother (Added by TW Conv) Relation Name Status Comments Brother Father Other Social History Tobacco Use Types Packs/Day Years [...] on file Legal Sex 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 Gender Identity Not on file Sexual Orientation Not on file Occupation Industry Job Start Date Job End Date RETIRED Not on file Not on file Not on file Obstetrics History Last Filed Vital Signs Vital Sign Reading [...] 10/31/2023 10:55 AM CDT Plan of Treatment Health Maintenance Due Date Last Done Comments Osteoporosis Screening-Bone Density Scan 1940 Hepatitis B Screening 1960 Pneumococcal vaccine 65+ (1 of 1 - PCV) 1992 Zoster Vaccine (1 of 2) 1992 Well Visit 65+ 2007 Depression Screening 06/22/2019 06/21/2018, 06/22/19 19 Covid-19 Vaccine (5 - 4-2 5 season) 2023 02/02/2022, 03/05/2021, 06/25/2020, Additional history exists Fall Risk Assessment 10/30/2024 10/31/2023 DTaP/Tdap/Td Vaccine (2 - Td or Tdap) 08/05/2025 08/06/2015 Influenza Vaccine Completed 05/08/2024, , 02/02/2022, Additional history exists Insurance [facility] PPO MEDICARE [facility] Address: [address] [address] [place] [address] [facility] MEDICARE AET MEDICARE [facility] HMO Advance Directives For more information, please contact: [phone] * Full Code (Latest Code Status on File) Date Activated Date Inactivated Comments 10/31/2023 10:54 AM 10/31/2023 5:10 PM Care Teams Consumer Recruiter Relationship Specialty Start Date End Date Fernando Caputo MD [address] [place] [address] PCP - General Internal Medicine 06/15/24
--- OUTSIDE RECORDS SUMMARY | 2024-07-13 11:06 | XMS_ITS | CONTINUITY OF CARE DOCUMENT ---
Author Name yara livingston Address Unknown Organization [facility] Address [address] [place] [address] Phone [phone] Care Team Providers Care Printer Slotter Feeder Name Role Phone Tom ORO, Scott Unavailable NELA LEUNG MD Unavailable [phone] NELA LEUNG MD Unavailable [phone] PROBLEMS Condition Status Date Provider Notes Cardiology examination active Scott kumar MD TIA active Scott Santos MD Meningioma, brain active Scott Santos MD Palpitations active Yves Alarconte ENCOUNTERS Date Type Provider Location Encounter Diag nosis - In-person encounter Office Visit Scott Santos MD [place] [facility] - In-person encounter Office Visit Scott Santos MD [facility] Cardiology examinationTIAMeningioma , brainPalpitations VITAL SIGNS Date Observation Value Provider Body Mass Index (Ratio) 23.59 kg/m2 Dixon Santos MD blood pressure, diastolic 80 mm[Hg] Rh christin Nielsen blood pressure, systolic 132 mm[Hg] Rho gt Nielsen blood pressure, cuff size regular Rh christin Nielsen oxygen saturation, oximetry 98 % Liss Nielsen respiratory rate E&M 16 /min Liss Nielsen pulse rate 58 /min Liss Nielsen weight E&M 129 [lb_av] Liss Nielsen height E&M 62 [in_i] Liss Nielsen Body Mass Index (Ratio) 23.92 kg/m2 Paulino Villagomez blood pressure, resting Yes Perla Wick respiratory rate E&M 18 /min Leigh Wick blood pressure, cuff size regular Ирина Wick blood pressure, diastolic 64 mm[Hg] Ирина Wick blood pressure, systolic 122 mm[Hg] LaW leelee Wick oxygen saturation, oximetry 98 % Leigh Wick pulse rate 60 /min Leigh Wick weight E&M 130.8 [lb_av] Leigh Clemente r height E&M 62 [in_i] Leigh Wick ALLERGIES Allergy Name Onset Date Reaction Criticality Status ANTIINFLAMMATORY High Criticality ac tive RESULTS Date Observation Value Provider Reference Range Interpretation Location 1 lipoprotein, beta, serum, point, quantitative, calculated 66 mg/dL [facility] 0-99 1 very low density lipoproteins 25 mg/dL [facility] 5-40 1 HDL cholesterol, serum 71 mg/dL [facility] >39 1 triglyceride, serum, random 127 mg/dL [facility] 0-149 1 cholesterol, serum 162 mg/dL [facility] 920-260 3833/02/0 1 free thyroxine index 1.8 [facility] 1.2-4.9 1 triiodothyronine resin uptake 26 % [facility] 24-39 1 thyroxine, serum, total 7.0 ug/dL [facility] 4.5-12.0 1 thyroid stimulating hormone, serum 5.680 u[IU]/mL [facility] 0.450-4.500 High HISTORY OF MEDICATION USE Medication Status Instructions Dates Provider Indications Com ments OMEPRAZOLE 20 MG ORAL CAPSULE DELAYED RELEASE active one tab daily Leigh Delano MISOPROSTOL 200 MCG ORAL TABLET active one tab daily Leigh Wick MECLIZINE HCL 25 MG ORAL TABLET CHEWABLE active one tab twice daily Leigh Wick LOSARTAN POTASSIUM-HCTZ 50-12.5 MG ORAL TABLET active one tab daily Leigh Wick ATENOLOL TABLET active one tab daily Tahmina Wick SOCIAL HISTORY Date Observation Value Provider social history E&M S moking History: Fadi gilman has never smoked. Scott Santos MD social history reviewed E&M revi ewed - no changes required Scott Santos MD smoking status Never smoker Liss Nielsen number of grandchildren Scott Villagomez social history E&M S moking History: Fadi gilman has never smoked. Yves Villagomez social history reviewed E&M revi ewed - no changes required Yves Villagomez smoking status Never smoker Leigh Rodriguez er FAMILY HISTORY Family Member Condition Mother Family History of Co ngestive Heart Failure: INSURANCE PROVIDERS Payer name Policy type / Coverage type [place] [employer] party ID [employer] [facility] Other [id number] [place] MEDICARE PART B Medicare [id number] ADVANCE DIRECTIVES Name Date DISCUSSED - NO DECISION MADE TREATMENT PLAN Date Name Performer Cardiology:No recurr ence. Her telesentry monitor showed normal sinus rhythm with no arrhythmias and she has been reassured. Scott Santos MD Cardiology:Calcified . Follows neurology. Scott Santos MD Cardiology:Episode o f TIA. Her echocardiogram, stress test, carotid doppler, telesentry monitor, and labs were unremarkable. The patient has been reassured. She continues to follow neurology for meningioma. Scott Santos MD Cardiology:Calcified. Follows ne urology. Yves Villagomez Cardiology:Infrequen t palpitations. Will arrange telesentry monitor and thyroid panel. Yves Villagomez Cardiology:Episode o f TIA. Will arrange echo, carotid, stress, and telesentry to evaluate cardiac and vascular etiologies. will check Lipid panel. Continues to follow neurology. Yves Villagomez Date Name Carotid Duplex Bilat eral Complete Echo Stress Regadenoson THYROID PANEL WITH T SH, 3RD GENERATION Other LIPID PANEL HISTORY OF PROCEDURES Procedure Date Procedure Name Provider Procedure Notes S tatus EKG Scott Santos MD complet ed Regadenoson, 4 units Scott Santos MD completed Cardiolite, 2 units Scott Santos MD completed SPECT Images Scott Santos MD compl eted Stress EKG Scott Santos MD complet ed Mobile Cardiac Telem etry - Tech Scott Santos MD completed Mobile Cardiac Telem etry - Prof Scott Santos MD completed EKG Scott Santos MD complet ed
--- OUTSIDE RECORDS SUMMARY | 2024-07-13 11:06 | XMS_ITS | Clinical Summary ---
Author Organization [facility] [employer] Address [address] [place] [address] Care Team Providers Care Cut Lace Machine Operator Name Role Phone Maria Del Carmen Gil MD Unavailable [phone] Maria Del Carmen Gil MD Unavailable [phone] Maria Del Carmen Gil MD Unavailable [phone] Fernando Caputo MD Primary Care Provider [phone] Source Comments [facility],non-owned Affiliates and Associated Physician Practices is amultiple site organization consisting of ambulatory clinics and hospital sitesin [place], [place], [place] and [place]. This disclosure is being madepursuant to the Care Everywhere program and may not contain all information available regarding this patient. Last updated 17.[facility] Allergies Active Allergy Reactions Criticality Noted Date Comments Ibuprofen Anaphylaxis High 07/16/2020 Morphine Other 07/16/2020 Difficult to wake up from (imported from other chart) Nsaids Cardiac Injury High 07/16/2020 Imported from other chart. Reported to cause cardiac arrest? Medications * Be aware that medications may not be up to date on this document. Alwaysverify current medications with the patient. Medication Sig Dispensed Refills Start Date End Date Status VITAMIN E PO Take 200 Units by mouth once daily. Active cyanocobalamin (VITAMIN B-12) 1000 MCG tablet Take 1 (one) tablet by mouth once daily Active B Complex Vitamins (VITAMIN B COMPLEX PO) Take by mouth once daily. Active vitamin D3-cholecalcifer ol (CHOLECACIFEROL) 400 UNIT tablet Take 1 (one) tablet by mouth once daily Active [place]-3 Fatty Acids (FISH OIL PO) Take by mouth once daily. Active thiamine (VITAMIN B-1) 100 MG tablet Active acetaminophen (TYLENOL) 325 MG tablet Take 2 (two) tablets by mouth every 4 hours as needed Maximum allowable Acetaminophen amount = 4 Grams (4000 mg) / 24 hours. 07/22/2020 Active atorvastatin (LIPITOR) 80 MG tablet Take 1 (one) tablet by mouth at bedtime 07/22/2020 Active senna-docusate (SENOKOT-S) 8.6-50 MG tablet Take 1 (one) tablet by mouth 2 times daily 07/22/2020 Active calcium citrate (CITRACAL 950) 950 MG tablet Take 1 (one) tablet by mouth once daily 07/23/2020 Active multivitamin daily tablet Take 1 (one) tablet by mouth once daily 07/23/2020 Active cyclobenzaprine (FLEXERIL) 10 MG tablet Take 1 (one) tablet by mouth 3 times daily as needed for Muscle Spasms Active pantoprazole EC (PROTONIX) 40 MG tablet Take 1 (one) tablet by mouth 2 times daily 120 tablet 3 10/04/2021 Active aspirin (ASPIRIN) 81 MG chew tablet Take 1 (one) tablet by mouth once daily 30 tablet 3 10/13/2021 Active chlorthalidone (HYGROTON) 25 MG tablet 10/15/2021 Active citalopram (CELEXA) 20 MG tablet Take 1 (one) tablet by mouth once daily 09/09/2021 Active EFFER-K 25 MEQ efferv tablet 2 mEq once daily 09/29/2021 Activ e sacubitril-valsa rtan (ENTRESTO) 24-26 MG tablet Take 1 (one) tablet by mouth 2 times daily 180 tablet 2 10/19/2021 Active triple antibiotic (Neosporin) 5-400-5000 ointment Apply to affected area 3 times daily 30 g 11/11/2021 Active miSOPROStol (Cytotec) 200 MCG tablet TAKE 1 TABLET BY MOUTH EVERY DAY WITH A MEAL 11/25/2021 Active carvedilol (Coreg) 12.5 MG tablet Take 1 (one) tablet by mouth 2 times daily with morning and evening meal 180 tablet 3 05/11/2023 Active busPIRone (Buspar) 15 MG tablet Take 1 (one) tablet by mouth 3 times daily 02/20/2024 Active sucralfate (Carafate) 1 GM/10ML suspension TAKE 10 ML BY MOUTH BEFORE MEALS AND BEFORE BEDTIME. 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, not intractable, without status epilepticus (HCC) Take 1 (one) tablet by mouth 2 times daily 180 tablet 3 05/30/2024 Active cephalexin (Keflex) 250 MG capsuleIndicatio ns:recurrent UTI, chronic prophylaxis Take 1 (one) capsule by mouth once daily Reasons: recurrent UTI, chronic prophylaxis 30 capsule 1 06/15/2024 Active ferrous sulfate 325 (65 FE) MG tablet Take 1 (one) tablet by mouth every 2 days 06/16/2024 Active clopidogrel (plaVIX) 75 MG tablet Take 1 (one) tablet by mouth once daily 30 tablet 06/16/2024 Active renal vitamin (Dialyvite) tablet Take 1 (one) tablet by mouth once daily 06/16/2024 Active ferrous sulfate 325 (65 FE) MG tablet Take 1 (one) tablet by mouth once daily 07/23/2020 5 Discontinue d(Dose Adjustment) clopidogrel (PLAVIX) 75 MG tablet 10/15/2021 5 Discontinue d(List Clean-Up) cephalexin (Keflex) 250 MG capsule 02/16/2022 5 Discontinue d(List Clean-Up) cefdinir (Omnicef) 300 MG capsule TAKE 1 CAPSULE (300 MG) ORALLY EVERY 12 HOURS FOR 1 WEEK 02/28/2024 5 Discontinue d(List Clean-Up) Active Problems Problem Noted Date Diagnosed Date Cerebral infarction, unspecified 02/21/2024 Chronic or unspecified gastrojejunal ulcer with hemorrhage 02/21/2024 Dysuria 02/21/2024 Encounter for screening mamm ogram for malignant neoplasm of breast 02/21/2024 Epigastric pain 02/21/2024 Epilepsy, unspecified, not i ntractable, without status epilepticus 02/21/2024 Frequency of micturition 02/21/2024 Hematuria, unspecified 02/21/2024 termite helper (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 02/21/2024 Metabolic encephalopathy 02/21/2024 Noninfective gastroenteritis and colitis, unspec ified 02/21/2024 Other fecal abnormalities 02/21/2024 [facility] Pain due to genitourinary pr osthetic devices, implants and grafts, initial encounter 02/21/2024 Pelvic and perineal pain 02/21/2024 Status post bariatric surgery 02/21/2024 Urgency of urination 02/21/2024 Mechanical complication of indwelling urinary ca theter 02/21/2024 Hematemesis with nausea 10/05/2021 History of seizure disorder 10/05/2021 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 Continue ASA, Plavix and high dose Statin. Follows with Neurology. History of suprapubic catheter 10/05/2021 DNR (do not resuscitate) 10/05/2021 DNI (do not intubate) 10/05/2021 Debility 10/05/2021 Chronic heart failure with preserved ejection fr action 10/05/2021 Assessment & Plan (10/19/2021 10:58 AM CDT): Chronic Grade II HFpEF with ongoing SOB and YOUNGER. NHYA class II-III findings improved, Entresto stopped while in house for hypotension. Resume Entresto 24/26mg BID BMP in 1-2 weeks. Continue chlorthalidone 25mg daily, coreg 25mg BID and Norvasc 10mg stopped for hypotension. Repeat ECHO in October while in house stable with grade II diastolic dysfucntion and moderate LVH and Ef of 67%. Acute respiratory failure with hypoxia History of Marlee-en-Y gastric bypass 10/05/2021 Acute blood loss anemia 09/30/2021 Altered mental status, unspe cified altered mental status type 09/30/2021 Fall, initial encounter 09/30/2021 Upper GI bleed 09/30/2021 Acute cystitis without hematuria 03/13/2021 Neurogenic bladder due to old stroke 11/12/2020 Dysphagia 07/17/2020 Aphasia 07/15/2020 Hypertension 07/15/2020 Assessment & Plan (10/19/2021 10:58 AM CDT): See HFpEF Assessment & Plan (09/18/2021 9:59 AM CDT): See HFpEF Facial droop 07/15/2020 Cerebrovascular accident (CVA) 07/15/2020 Assessment & Plan (09/18/2021 9:57 AM CDT): With residual speech deficits. Continue ASA, Plavix and high dose Statin. Follows with Neurology. Meningioma 2020 Palpitations 05/04/2019 Assessment & Plan (10/19/2021 10:59 AM CDT): No arrhthymias noted on implanted loop. Assessment & Plan (09/18/2021 9:59 AM CDT): No arrhthymias noted on implanted loop. Resolved Problems Problem Noted Date Diagnosed Date Resolved Date Unresponsive 06/06/2024 06/12/2024 Endotracheally intubated 06/06/202402/2025 Elevated liver enzymes 06/06/202406/12 Acute encephalopathy 10/05/2021 022 Gastrointestinal hemorrhage with melena 10/05/2021 10/05/2021 Anemia in stage 2 chronic kidney disease 10/05/2021 10/05/2021 Hemorrhagic shock 10/05/2021 10/07/2021 Hyperkalemia 10/05/2021 10/07/2021 Metabolic acidosis 10/05/2021 Seizure 09/26/2021 06/12/2024 UTI (urinary tract infection) 09/26/2021 06/12/2024 Acute kidney injury 09/26/2021 06/13/19 25 Weakness 07/15/2020 10/05/2021 Hypertension 2020 10/05/2021 Encounters Date Type Department Care Team Description 06/18/2024 Telephone Transitional Care at [address] [phone] Cheri Harrell RNsolutions manager 06/07/2024 Travel 06/06/2024 1:41 PM IGNITION EXPERT - 06/15/2024 4:45 PM CDT Hospital Encounter [facility] [address] [place] [phone] Cornelio Mandujano MD Linares, MD Anurag Nuñez, MD Dandre Morillo, MD Elio Rodarte, MD Bushra Garcia Ryan, Neurology Discharge [place]position[place] [facility] [place] 12:30 PM IGNITION EXPERT Office Visit [facility] - Neurology [address] [place] [phone] Kyung Haq APRN-CNP Localization-related (focal) (partial) idiopathic epilepsy and epileptic syndromes with seizures of localized onset, not intractable, without status epilepticus (Primary Dx) 05/30/2024 Telephone [facility] - Neurology [address] [place] [phone] Kyung Haq APRN-CNP Results (Lab Results from PCP) 05/30/2024 Travel from Last 3 Months Immunizations Name Administration Dates Next Due INFLUENZA VACCINE 01/10/2020, 9,01/06/2019, 017,12/18/2014 INFLUENZA VACCINE, ADJUVANTE D, QUADR. (FLUAD QUADRIVALENT; 65Y+) (AIIV4) 06/09/2024(Deferred: Patient Condition) TDAP (7yrs+) 08/06/2015 Family History Medical History Relation Name Comments Hypertension Mother Relation Name Status Comments Mother Social History Tobacco Use Types Packs/Day [...] any time in the past 12 m ont, were you homeless or living in a prison (including now)? Patient unable to answer 06/07/2024 Sex and Gender Information Value Date Recorded Sex Assigned at Not on file Gender Identity Not on file Sexual Orientation Not on file Last Filed Vital Signs Vital Sign Reading Time Taken Comments Blood Pressure 130/56 06/15/2024 8:20 AM CDT Pulse 75 06/15/2024 8:20 AM CDT Temperature 36.6 C (97.9 F) 06/15/2024 8:23 AM CDT Respiratory Rate 16 06/15/2024 8:23 AM CDT Oxygen Saturation 97% 06/14/2024 8:13 PM CDT Inhaled Oxygen Concentration 35% 06/08/2024 1 0:00 AM IGNITION EXPERT Weight 50.1 kg (110 lb 7.2 oz) 06/09/2024 2:00 A M IGNITION EXPERT Height 160 cm (5' 2.99 ) 06/07/2024 3:00 AM IGNITION EXPERT Body Mass Index 19.57 06/07/2024 3:00 AM IGNITION EXPERT Plan of Treatment Upcoming Encounters Date Type Department Care Team (Late st Contact Info) Description 11/27/2024 1:00 PM CDT Office Visit [facility] - Neurology [address] [facility], [facility] [place] [phone] Kyung Haq, KIRSTEN-SUPERVISOR TELEVISION [employer] [facility] [address] [place] [phone] Health Maintenance Due Date Last Done Comments BONE DENSITY TESTING 1942 PNEUMOCOCCAL VACCINE 50+ (1 of 2 - PCV) 1961 ZOSTER VACCINE (1 of 2) 1992 Respiratory Syncytial Virus (RSV) Vaccine Pt: or over 60 yrs (1 - 1-dose 75+ series) 2017 COVID-19 VACCINE ( - season) 2023 03/05/2021, 06/25/2020, 06/03/2020 DEPRESSION SCREENING 04/04/2024 MEDICARE AWV CALENDAR YEAR 2024 INFLUENZA VACCINE (Season Ended) 2024 01/10/2020, 01/30/2019, 01/06/2019, Additional history exists DTAP/TDAP/TD VACCINES (2 - Td or Tdap) 08/05/2025 08/06/2015 HEPATITIS B VACCINE Aged Out No longe r eligible based on patient's age to complete this topic HIB VACCINE Aged Out No longer eligi ble based on patient's age to complete this topic HPV VACCINE Aged Out No longer eligi ble based on patient's age to complete this topic MENINGOCOCCAL (Group B) VACCINE SHARED DECISION-MAKING Aged Out No longer eligible based on patient's age to complete this topic MENINGOCOCCAL GROUPS A/C/Y/W VACCINE Aged Out No longer eligible based on patient's age to complete this topic Medical Devices Implanted Type Area Pipeline Controller Device Identifier Shelf Expiration Date Model / Serial / Lot Rcdr Crd Rvl Linq Loop - [id number] Implanted:Qty: 1 on 07/21/2020 by Fanny Beach MD at [facility] Loop Recorder Chest Wall [employer] [address] 03/01/2021 [id number] / [id number] / Wire K .035 X 5.5in Implanted:Qty: 2 on 06/20/2014 by Josh Sibley MD at [facility] Right: Thumb [email or web address] 5600-21-0 00 / / Description:Placed for tempo rary fixation Procedures Procedure Name Priority Date/Time Associated Diagnosis Comments PHOSPHORUS BLOOD Routine 06/15/2024 4:30 AM CDT MAGNESIUM BLOOD Routine 06/15/2024 4:30 AM CDT CBC W AUTO DIFFERENTIAL Routine 06/15/2024 4:30 AM CDT BASIC METABOLIC PANEL (CALCIUM TOTAL) Routine 06/15/2024 4:30 AM CDT PHOSPHORUS BLOOD Routine 06/14/2024 4:48 AM CDT MAGNESIUM BLOOD Routine 06/14/2024 4:48 AM CDT CBC W AUTO DIFFERENTIAL Routine 06/14/2024 4:48 AM CDT BASIC METABOLIC PANEL (CALCIUM TOTAL) Routine 06/14/2024 4:48 AM CDT PHOSPHORUS BLOOD Routine 06/13/2024 8:54 AM CDT MAGNESIUM BLOOD Routine 06/13/2024 8:54 AM CDT CBC W AUTO DIFFERENTIAL Routine 06/13/2024 8:54 AM CDT BASIC METABOLIC PANEL (CALCIUM TOTAL) Routine 06/13/2024 8:54 AM CDT PHOSPHORUS BLOOD Routine 06/12/2024 7:37 AM CDT MAGNESIUM BLOOD Routine 06/12/2024 7:37 AM CDT CBC W AUTO DIFFERENTIAL Routine 06/12/2024 7:37 AM CDT BASIC METABOLIC PANEL (CALCIUM TOTAL) Routine 06/12/2024 7:37 AM CDT HEMOGLOBIN A1C Routine 06/11/2024 4:52 AM CDT LIPID PROFILE AM Draw 06/11/2024 4:52 AM CDT PHOSPHORUS BLOOD Routine 06/11/2024 4:52 AM CDT MAGNESIUM BLOOD Routine 06/11/2024 4:52 AM CDT CBC W AUTO DIFFERENTIAL Routine 06/11/2024 4:52 AM CDT BASIC METABOLIC PANEL (CALCIUM TOTAL) Routine 06/11/2024 4:52 AM CDT GLUCOSE - POINT OF CARE Routine 06/10/2024 10:23 AM CDT PHOSPHORUS BLOOD Routine 06/10/2024 4:01 AM CDT MAGNESIUM BLOOD Routine 06/10/2024 4:01 AM CDT CBC W AUTO DIFFERENTIAL Routine 06/10/2024 4:01 AM CDT BASIC METABOLIC PANEL (CALCIUM TOTAL) Routine 06/10/2024 4:01 AM CDT PHOSPHORUS BLOOD Routine 06/09/2024 1:54 AM IGNITION EXPERT MAGNESIUM BLOOD Routine 06/09/2024 1:54 AM IGNITION EXPERT CBC W AUTO DIFFERENTIAL Routine 06/09/2024 1:54 AM IGNITION EXPERT BASIC METABOLIC PANEL (CALCIUM TOTAL) Routine 06/09/2024 1:[address] HEAD WO CONTRAST STAT 06/08/2024 5 :47 PM IGNITION EXPERT Endotracheally intubated XR CHEST 1VW PORTABLE Routine 06/08/2024 4:50 PM IGNITION EXPERT Altered mental status, unspecified altered mental status type MRSA DNA PCR STAT 06/08/2024 4:43 PM IGNITION EXPERT HEPATIC FUNCTION PANEL STAT 8:28 AM IGNITION EXPERT PHOSPHORUS BLOOD Routine 06/07/2024 11:3 4 PM IGNITION EXPERT MAGNESIUM BLOOD Routine 06/07/2024 11:34 PM IGNITION EXPERT CBC W AUTO DIFFERENTIAL Routine 06/07/2024 11:34 PM IGNITION EXPERT BASIC METABOLIC PANEL (CALCIUM TOTAL) Routine 06/07/2024 11:34 PM IGNITION EXPERT BLOOD GASES RANDI + COOX PANEL Routine 06/07/2024 6:32 AM IGNITION EXPERT BLOOD GASES ART + COOX PANEL Routine 06/07/2024 3:12 AM IGNITION EXPERT BLOOD GASES ART + COOX PANEL STAT 06/07/2024 12:33 AM IGNITION EXPERT TRIGLYCERIDES BLOOD Timed 06/06/2024 1 1:49 PM IGNITION EXPERT PHOSPHORUS BLOOD Routine 06/06/2024 11:4 9 PM IGNITION EXPERT MAGNESIUM BLOOD Routine 06/06/2024 11:49 PM IGNITION EXPERT CBC W AUTO DIFFERENTIAL Routine 06/06/2024 11:49 PM IGNITION EXPERT BASIC METABOLIC PANEL (CALCIUM TOTAL) Routine 06/06/2024 11:49 PM IGNITION EXPERT XR ABDOMEN KUB PORTABLE STAT 06/06/2024 6:55 PM IGNITION EXPERT Endotracheally intubated XR CHEST 1VW PORTABLE STAT 06/06/2024 6:55 PM IGNITION EXPERT Endotracheally intubated VENTILATOR LIBERATION TRIAL PROTOCOL Routine 06/06/2024 6:49 PM IGNITION EXPERT ALCOHOL ETHYL BLOOD STAT 06/06/2024 3 :06 PM IGNITION EXPERT CK BLOOD STAT 06/06/2024 3:06 PM IGNITION EXPERT OXCARBAZEPINE BLOOD STAT 06/06/2024 2 :38 PM IGNITION EXPERT BLOOD GASES RANDI + COOX PANEL Timed 06/06/2024 2:35 PM IGNITION EXPERT TROPONIN-I HIGH SENSITIVE REFLEX 1HOUR Timed 06/06/2024 2:35 PM IGNITION EXPERT LEVETIRACETAM LEVEL STAT 06/06/2024 2 :35 PM IGNITION EXPERT URINALYSIS REFLEX MICROSCOPIC REFLEX CULTURE STAT 06/06/2024 2:35 PM IGNITION EXPERT URINE DRUG SCREEN IMMUNOASSAY STAT 06/06/2024 2:35 PM IGNITION EXPERT CULTURE URINE STAT 06/06/2024 2:35 PM IGNITION EXPERT XR CHEST 1VW PORTABLE STAT 06/06/2024 2:31 PM IGNITION EXPERT Unresponsive EKG 12-LEAD STAT 06/06/2024 2:16 PM IGNITION EXPERT Unresponsive CT ANGIO BRAIN NECK STROKE STAT 06/06/2024 2:10 PM IGNITION EXPERT Unresponsive CREATININE - POCT INTERFACED Routine 06/06/2024 2:01 PM IGNITION EXPERT INR WHOLE BLOOD - POINT OF CARE (IP) STROKE Routine 06/06/2024 2:[address] BRAIN STROKE STAT 06/06/2024 1:58 PM IGNITION EXPERT Unresponsive TYPE + SCREEN PANEL STAT 06/06/2024 1 :52 PM IGNITION EXPERT ALCOHOL ETHYL BLOOD STAT 06/06/2024 1 :52 PM IGNITION EXPERT BLOOD GASES RANDI + COOX PANEL STAT 06/06/2024 1:52 PM IGNITION EXPERT TROPONIN-I HIGH SENSITIVE BASELINE + 1HR STAT 06/06/2024 1:52 PM IGNITION EXPERT PT-INR [facility] STAT 06/06/2024 1:52 PM IGNITION EXPERT COMPREHENSIVE METABOLIC PANEL STAT 06/06/2024 1:52 PM IGNITION EXPERT CBC W AUTO DIFFERENTIAL STAT 06/06/2024 1:52 PM IGNITION EXPERT GLUCOSE - POINT OF CARE Routine 06/06/2024 1:51 PM IGNITION EXPERT from Last 3 Months Results * (ABNORMAL) CBC W AUTO DIFFERENTIAL (06/15/2024 4:30 AM CDT) Only the most recent of10 resultswithin the time period is included. WBC 5.0 4.0 - 10.7 x10E9/L 06/15/2024 5:05 AM [facility] RBC Count 3.75(L) 3.90 - 5.20 x10E12/L 06/15/2024 5:05 AM [facility] Hemoglobin 10.9(L) 11.9 - 15.8 g/dL 06/15/2024 5:05 AM [facility] Hematocrit 33.1(L) 34.8 - 46.1 % 06/15/2024 5:05 AM [facility] MCV 88.3 80.0 - 98.0 fL 06/15/2024 5:05 AM [facility] MCH 29.1 26.7 - 33.6 pg 06/15/2024 5:05 AM [facility] MCHC 32.9 31.7 - 36.3 g/dL 06/15/2024 5:05 AM [facility] RDW-CV 13.5 11.3 - 14.8 % 06/15/2024 5:05 AM [facility] Platelet Count 275 150 - 420 x10E9/L 06/15/2024 5:05 AM [facility] MPV 10.5 7.8 - 11.4 fL 06/15/2024 5:05 AM [facility] Neutrophil % 51.7 41.0 - 74.0 % 06/15/2024 5:05 AM [facility] Lymphocyte % 32.7 17.0 - 47.0 % 06/15/2024 5:05 AM [facility] Monocyte % 11.2(H) 3.0 - 11.0 % 06/15/2024 5:05 AM [facility] Eosinophil % 3.2 0.0 - 7.0 % 06/15/2024 5:05 AM [facility] Basophil % 1.0 0.0 - 1.6 % 06/15/2024 5:05 AM [facility] Immature Granulocytes % 0.2 0.0 - 1.0 % 06/15/2024 5:05 AM [facility] Neutrophil Absolute 2.58 1.60 - 7.50 x10E9/L 06/15/2024 5:05 AM [facility] Lymphocyte Absolute 1.63 1.00 - 4.40 x10E9/L 06/15/2024 5:05 AM [facility] Monocyte Absolute 0.56 0.15 - 1.00 x10E9/L 06/15/2024 5:05 AM [facility] Eosinophil Absolute 0.16 0.00 - 0.60 x10E9/L 06/15/2024 5:05 AM [facility] Basophil Absolute 0.05 0.00 - 0.13 x10E9/L 06/15/2024 5:05 AM [facility] Blood BLOOD SPECIMEN / Unknown Lab Venipuncture / Unknown 06/15/2024 4:30 AM CDT 06/15/2024 4:55 AM CDT Susan Amos MD LAB - HEMATOLOGY ORD ERABLES [facility] [address] [place] [address], [facility] [phone] * (ABNORMAL) BASIC METABOLIC PANEL (CALCIUM TOTAL) (06/15/2024 4:30 AM CDT) Only the most recent of9 resultswithin the time period is included. BUN 29(H) 7 - 26 mg/dL 06/15/2024 5:18 AM [facility] Creatinine 1.16(H) 0.56 - 0.96 mg/dL 06/15/2024 5:18 AM [facility] Sodium 140 136 - 145 mmol/L 06/15/2024 5:18 AM [facility] Potassium 4.0 3.5 - 4.5 mmol/L 06/15/2024 5:18 AM [facility] Chloride 111(H) 98 - 107 mmol/L 06/15/2024 5:18 AM [facility] CO2 19(L) 22 - 29 mmol/L 06/15/2024 5:18 AM [facility] Glucose 91 70 - 99 mg/dL 06/15/2024 5:18 AM [facility] Calcium 8.4 8.4 - 10.2 mg/dL 06/15/2024 5:18 AM [facility] Anion Gap 10 6 - 16 06/15/2024 5:18 AM [facility] BUN/Creatinine Ratio 25(H) 7 - 23 06/15/2024 5:18 AM [facility] Osmolality Calculated 295 275 - 295 mOsm/kg 06/15/2024 5:18 AM [facility] eGFR by CKD-EPI 47(L) >=90 mL/min/1.7 3 m2 06/15/2024 5:18 AM [facility] Blood BLOOD SPECIMEN / Unknown Lab Venipuncture / Unknown 06/15/2024 4:30 AM CDT 06/15/2024 4:51 AM CDT Susan Amos MD LAB - CHEMISTRY AGUEDA RAMIREZ [facility] Organization Address City/State/ZIP Co de Phone Number [facility] [address] [place] [phone], [facility] [phone] * PHOSPHORUS BLOOD (06/15/2024 4:30 AM CDT) Only the most recent of9 resultswithin the time period is included. Phosphorus 3.5 2.9 - 5.1 mg/dL 06/15/2024 5:18 AM CDT [facility] Blood BLOOD SPECIMEN / Unknown Lab Venipuncture / Unknown 06/15/2024 4:30 AM CDT 06/15/2024 4:51 AM CDT Susan Amos MD LAB - CHEMISTRY AGUEDA RAMIREZ [facility] [address] [place] [address], [place] [phone] * MAGNESIUM BLOOD (06/15/2024 4:30 AM CDT) Only the most recent of9 resultswithin the time period is included. Magnesium 1.9 1.6 - 2.6 mg/dL 06/15/2024 5:18 AM CDT [facility] Blood BLOOD SPECIMEN / Unknown Lab Venipuncture / Unknown 06/15/2024 4:30 AM CDT 06/15/2024 4:51 AM CDT Susan Amos MD LAB - CHEMISTRY AGUEDA RAMIREZ [facility] [address] [place] [phone], [place] [phone] * HEMOGLOBIN A1C (06/11/2024 4:52 AM CDT) Hemoglobin A1c 4.9 <=5.6 % 06/11/2024 11:57 AM CDT [facility] Estimated Average Glucose 94 mg/dL 06/11/2024 11:57 AM CDT [facility] Comment: HbA1c Interpretation: Normal : < 5.7% Pre-diabetes: 5.7-6.4% Diabetes: Equal to or greater than 6.5% Test results diagnostic of diabetes should be repeated for confirmation. Treatment target values recommended by ADA and other clinical organizations should be used to evaluate metabolic control in patients. Reference: [place] [employer], Standards of Care in Diabetes -2020 In patients 70 years and older consider HbA1c target range of 7.0-7.5% (Reference: Harvinder Pablo, et al. JAMDA. 2012) The Sebia assay for the measurement of HbA1c is a National Glycohemoglobin Standardization Program (NGSP) certified method. Blood BLOOD SPECIMEN / Unknown Lab Venipuncture / Unknown 06/11/2024 4:52 AM CDT 06/11/2024 5:54 AM CDT Joaquin Plascencia MD LAB - CHEMISTRY ORD ERABLES [address] [address], [place] [phone] * LIPID PROFILE (06/11/2024 4:52 AM CDT) [facility] Cholesterol Total 143 <200 mg/dL 06/11/2024 6:27 AM T [facility] HDL 64 >40 mg/dL 06/11/2024 6:27 AM CDT [facility] Comment: ATP III Classification of HDL Cholesterol: <40 mg/dL: Considered a major risk factor. >60 mg/dL: Considered a negative risk factor. LDL Calculated 62 <100 mg/dL 06/11/2024 6:27 AM T [facility] Comment: ATP III Classification of LDL Cholesterol: <100 mg/dL: Optimal 100 - 129 mg/dL: Near Optimal/Above Optimal 130 - 159 mg/dL: Borderline High 160 - 189 mg/dL: High >190 mg/dL: Very High Triglycerides 83 <150 mg/dL 06/11/2024 6:27 AM T [facility] Comment: ATP III Classification of Triglycerides: <150 mg/dL: Normal 150 - 199 mg/dL: Borderline High 200 - 400 mg/dL: High >500 mg/dL: Very High Blood BLOOD SPECIMEN / Unknown Lab Venipuncture / Unknown 06/11/2024 4:52 AM CDT 06/11/2024 5:58 AM CDT Joaquin Plascencia MD LAB - CHEMISTRY ORD ERABLES [address] [address], [place] [phone] * (ABNORMAL) GLUCOSE - POINT OF CARE (06/10/2024 10:23 AM CDT) Only the most recent of2 resultswithin the time period is included. Glucose WB/POC 104(H) 70 - 99 mg/dL 06/10/2024 10:24 AM CDT [facility] Specimen Type Cap Fingerstick 2024 10:24 AM CDT [facility] Blood BLOOD SPECIMEN / Unknown 06/10/2024 10:23 AM CDT 06/10/2024 10:24 AM CDT Eduardo Osborn MD LAB - POINT OF CARE ORDERABLES [address] [address], [facility] [phone] * [place] Head Wo Contrast (06/08/2024 5:47 PM IGNITION EXPERT) Anatomical Region Laterality Modality Head Computed Tomogra phy 06/08/2024 5:45 PM IGNITION EXPERT Impressions 06/08/2024 8:22 PM IGNITION EXPERT IMPRESSION: The study is limited due to beam hardening artifacts of the external materials. 1.No acute intracranial hemorrhage, midline shift, or significant mass effect. 2.Chronic large left MCA territory infarct. 3.Left parietal calcified meningioma. 4.No midline shift 5.Please note that CT is insensitive to hemorrhagic strokes and MRI of the brain should be considered, if there is clinical concern for acute cerebral infarction. Report dictated by Ko Flores MD, (Fitter Welder). I, Mike Sam MD have personally reviewed and interpreted this examination/study. > Interpreting Provider: Mike Sam MD on 06/08/2024 8:22 PM Narrative 06/08/2024 8:22 PM IGNITION EXPERT PROCEDURE: CT HEAD WO CONTRAST, DATE/TIME OF EXAM: 06/08/2024 5:47 PM, LOCATION [facility] INDICATION: Z97.8: Endotracheally intubated EXAMINATION: Computed tomography (CT) of the head without contrast ADDITIONAL CLINICAL INFORMATION: Ordering Provider Reason For Exam: Acute intracranial changes TECHNIQUE: CT of the head was performed without contrast according to standard protocol. CT dose reduction technique was used, including Automated Exposure Control. COMPARISON: CT brain stroke 06/06/2024. FINDINGS: The study is limited due to beam hardening artifacts of the external materials. Redemonstration of a large chronic infarct in the left frontoparietal lobe in the left MCA distribution. There is a 2.4 x 2.2 cm calcified mass in the superior left parietal region, likely calcified meningioma. No acute intra- or extra-axial fluid collections are identified. There is mild cerebral volume loss with associated ex vacuo ventricular dilatation. The basilar cisterns are patent. No mass effect or midline shift is seen. The yadav-white matter differentiation is normal. Periventricular white matter hypoattenuation is indicative of chronic small vessel ischemic disease. There is vascular calcification of the carotid siphons and the V4 segments of the vertebral arteries. No acute calvarial fracture is identified. Other than bilateral cataract extractions, the orbits appear normal. There is mild paranasal sinus disease. The mastoid air cells are clear. No soft tissue abnormality is identified. Small amount of cerumen is present in the right external auditory canal. There are degenerative changes of the temporal mandibular joints, worse on the right. Procedure Note Mike Sam MD - 06/08/2024 PROCEDURE: CT HEAD WO CONTRAST, DATE/TIME OF EXAM: 06/08/2024 5:47 PM, LOCATION [facility] INDICATION: Z97.8: Endotracheally intubated EXAMINATION: Computed tomography (CT) of the head without contrast ADDITIONAL CLINICAL INFORMATION: Ordering Provider Reason For Exam: Acute intracranial changes TECHNIQUE: CT of the head was performed without contrast according to standard protocol. CT dose reduction technique was used, including Automated Exposure Control. COMPARISON: CT brain stroke 06/06/2024. FINDINGS: The study is limited due to beam hardening artifacts of the external materials. Redemonstration of a large chronic infarct in the left frontoparietallobe in the left MCA distribution. There is a 2.4 x 2.2 cm calcified mass inthe superior left parietal region, likely calcified meningioma. No acuteintra- or extra-axial fluid collections are identified. There is mild cerebral volume loss with associated ex vacuo ventricular dilatation. The basilar cisterns are patent. No mass effect or midline shift is seen. The yadav-white matter differentiation is normal. Periventricular whitematter hypoattenuation is indicative of chronic small vessel ischemic disease. There is vascular calcification of the carotid siphons and the [id number] of the vertebral arteries. No acute calvarial fracture is identified.Other than bilateral cataract extractions, the orbits appear normal. There is mild paranasal sinus disease. The mastoid air cells are clear. No soft tissue abnormality is identified. Small amount of cerumen is present inthe right external auditory canal. There are degenerative changes of the temporal mandibular joints, worse on the right. IMPRESSION: The study is limited due to beam hardening artifacts of the external materials. 1.No acute intracranial hemorrhage, midline shift, or significant mass effect. 2.Chronic large left MCA territory infarct. 3.Left parietal calcified meningioma. 4.No midline shift 5.Please note that CT is insensitive to hemorrhagic strokes and MRI ofthe brain should be considered, if there is clinical concern for acutecerebral infarction. Report dictated by Ko Flores MD, (Fitter Welder). I, Mike Sam MD have personally reviewed and interpretedthis examination/study. > Interpreting Provider: Mike Sam MD on 06/08/2024 8:22 PM Joaquin Plascencia MD CT ORDERABLES * XR Chest 1Vw Portable (06/08/2024 4:50 PM IGNITION EXPERT) Only the most recent of3 resultswithin the time period is included. Anatomical Region Laterality Modality Chest Digital Radiogra phy 06/09/2024 1:18 PM IGNITION EXPERT Narrative 06/09/2024 2:40 PM IGNITION EXPERT PROCEDURE: XR CHEST 1VW PORTABLE, DATE/TIME OF EXAM: 06/08/2024 4:50 PM, LOCATION [facility] INDICATION: R41.82: Altered mental status, unspecified altered mental status type ADDITIONAL CLINICAL INFORMATION: Ordering Provider Reason For Exam: Post extubation Technologist Note: Additional: COMPARISON: Chest x-ray dated 06/06/2024 FINDINGS/IMPRESSION: *Loop recorder overlies the cardiac silhouette *Surgical clips overlie the superior abdominal midline *Interval removal of the endotracheal tube and nasogastric tube. Small volume left pleural effusion with adjacent atelectasis. No pneumothorax. The right lung is clear. The cardiac silhouette is normal. There is atherosclerotic calcification of the aorta. No displaced fractures identified. Report dictated by Argenis Kumar Dr, MD (head resident). Gael Toscano MD have personally reviewed and interpreted this examination/study. > Interpreting Provider: Gael Perdomo MD on 06/09/2024 2:40 PM Procedure Note Gael Perdomo MD - 06/09/2024 PROCEDURE: XR CHEST 1VW PORTABLE, DATE/TIME OF EXAM: 06/08/2024 4:50 PM, LOCATION [facility] INDICATION: R41.82: Altered mental status, unspecified altered mental status type ADDITIONAL CLINICAL INFORMATION: Ordering Provider Reason For Exam: Post extubation Technologist Note: Additional: COMPARISON: Chest x-ray dated 06/06/2024 FINDINGS/IMPRESSION: *Loop recorder overlies the cardiac silhouette *Surgical clips overlie the superior abdominal midline *Interval removal of the endotracheal tube and nasogastric tube. Small volume left pleural effusion with adjacent atelectasis. No pneumothorax. The right lung is clear. The cardiac silhouette is normal. There is atherosclerotic calcification of the aorta. No displacedfractures identified. Report dictated by Argenis Kumar Dr, MD (head resident). Gael Toscano MD have personally reviewed and interpreted this examination/study. > Interpreting Provider: Gael Perdomo MD on 06/09/2024 2:40 PM Joaquin Plascencia MD DIAGNOSTIC IMAGING ORDERABLES * MRSA DNA PCR (06/08/2024 4:43 PM IGNITION EXPERT) Pathologist [facility] MRSA DNA by PCR Not detected Not detected 06/08/2024 8:58 PM IGNITION EXPERT [facility] MICROBIOLOGY Microbiology SPECIMEN FROM NASAL FOSSAE / Unknown Collection / Unknown 06/08/2024 4:43 PM IGNITION EXPERT 06/08/2024 4:48 PM IGNITION EXPERT Narrative [facility] - 06/08/2024 8:58 PM IGNITION EXPERT Methicillin-resistant Staphylococcus aureus (MRSA) DNA is not detected (presumed not colonized with MRSA). Joaquin Plascencia MD LAB - MICROBIOLOGY ORDERABLES [facility] [address] [place] [address], [facility] [phone] * (ABNORMAL) HEPATIC FUNCTION PANEL (06/08/2024 8:28 AM IGNITION EXPERT) [facility] Protein Total 5.7(L) 6.0 - 8.3 g/dL 025 9:04 AM [facility] Albumin 3.0(L) 3.4 - 5.0 g/dL 06/08/2024 9:04 AM [facility] Bilirubin Total 0.3 0.2 - 1.2 mg/dL 10/2024 9:04 AM [facility] Bilirubin Conjugated 0.2 0.1 - 0.5 mg/dL 06/08/2024 9:04 AM [facility] Bilirubin Unconjugated 0.1 Unconjugated Bilirubin is a calculated value: Reference ranges have not been established. mg/dL 06/08/2024 9:04 AM [facility] Alkaline Phosphatase 133 40 - 150 U/L 06/08/2024 9:04 AM [facility] ALT 185(H) 5 - 55 U/L 06/08/2024 9:04 AM [facility] AST 76(H) 5 - 34 U/L 06/08/2024 9:04 AM [facility] Albumin/Globulin Ratio 1.1 1.1 - 2.3 06/08/2024 9:04 AM [facility] Blood BLOOD SPECIMEN / Unknown Venipuncture / Unknown 06/08/2024 8:28 AM IGNITION EXPERT 06/08/2024 8:34 AM [facility] Joaquin Plascencia MD LAB - CHEMISTRY ORD ERABLES [facility] [address] [place] [address], [place] [phone] * (ABNORMAL) BLOOD GASES RANDI + COOX PANEL (06/07/2024 6:32 AM IGNITION EXPERT) Only the most recent of3 resultswithin the time period is included. [facility] pH Venous 7.40 7.32 - 7.42 pH 06/07/2024 6:46 AM [facility] pO2 Venous 52(H) 35 - 40 mmHg 06/07/2024 6:46 AM [facility] pCO2 Venous 35(L) 40 - 50 mmHg 06/07/2024 6:46 AM [facility] HCO3 Venous 21.7 20 - 30 mmol/L 06/07/2024 6:46 AM [facility] Base Excess Venous -2.7(L) -2.0 - 2.0 mmol/L 06/07/2024 6:46 AM [facility] Oxyhemoglobin Venous 85.3 % 09/2024 6:46 AM [facility] Deoxyhemoglobin (HHB) Venous % 13.6 % 06/07/2024 6:46 AM [facility] Methemoglobin <0.8 0.0 - 2.0 % 06/07/2024 6:46 AM [facility] Carboxyhemoglobin 0.6 0.0 - 2.0 % 2024 6:46 AM [facility] O2 Content Venous 11.9 Interpret within clinical context ml/dL 06/07/2024 6:46 AM [facility] Hemoglobin by COOX 9.9(L) 12.0 - 15.6 g/dL 06/07/2024 6:46 AM [facility] O2 Saturation Venous 86 >=70 % 09/2024 6:46 AM [facility] FI O2 Mixed Venous 40.0 % 2024 6:46 AM [facility] Blood BLOOD SPECIMEN / Unknown Venipuncture / Unknown 06/07/2024 6:32 AM IGNITION EXPERT 06/07/2024 6:36 AM [facility] - 06/07/2024 6:46 AM [facility] Carboxyhemoglobin Normal Concentration: Non-smokers: 0-2%; Smokers: 0-9%; Toxic: >20% Joaquin Plascencia MD LAB - BLOOD GASES O RDERABLES [facility] [address] [place] [phone], [facility] [phone] * (ABNORMAL) BLOOD GASES ART + COOX PANEL (06/07/2024 3:12 AM [facility]) Only the most recent of2 resultswithin the time period is included. pH Arterial 7.50(H) 7.35 - 7.45 pH 06/07/2024 3:24 AM [facility] pO2 Arterial 166(H) 80 - 100 mmHg 06/07/2024 3:24 AM [facility] pCO2 Arterial 27(L) 35 - 45 mmHg 3:24 AM [facility] HCO3 Arterial 21.1 20.0 - 30.0 mmol/L 06/07/2024 3:24 AM [facility] BE Arterial -1.3 -2.0 - 2.0 mmol/L 06/07/2024 3:24 AM [facility] Oxyhemoglobin Arterial 97.8 % 06/07/2024 3:24 AM [facility] Dexoyhemoglobin (HHB) % 1.6 % 06/07/2024 3:24 AM [facility] Methemoglobin <0.8 0.0 - 2.0 % 06/07/2024 3:24 AM [facility] Carboxyhemoglobin <0.4 0.0 - 2.0 % 2024 3:24 AM [facility] O2 Content Arterial 14.1 Interpret within clinical context ml/dL 06/07/2024 3:24 AM [facility] Hemoglobin by COOX 10.0(L) 12.0 - 15.6 g/dL 06/07/2024 3:24 AM [facility] O2 Saturation Arterial 98 90 - 100 % 06/07/2024 3:24 AM [facility] FI O2 Arterial 50.0 % 06/07/2024 3:24 AM [facility] Blood, arterial ARTERIAL BLOOD SPECIMEN / Unknown Arterial Puncture / Unknown 06/07/2024 3:12 AM IGNITION EXPERT 06/07/2024 3:16 AM [facility] - 06/07/2024 3:24 AM [facility] Carboxyhemoglobin Normal Concentration: Non-smokers: 0-2%; Smokers: 0-9%; Toxic: >20% Joaquin Plascencia MD LAB - BLOOD GASES O RDERABLES Performing Organization Address [facility]/ZIP Co de Phone Number [address] [address], [facility] [phone] * (ABNORMAL) TRIGLYCERIDES BLOOD (06/06/2024 11:49 PM IGNITION EXPERT) Triglycerides 460(H) <150 mg/dL 06/07/2024 12:30 AM IGNITION EXPERT [facility] Comment: ATP III Classification of Triglycerides: <150 mg/dL: Normal 150 - 199 mg/dL: Borderline High 200 - 400 mg/dL: High >500 mg/dL: Very High Blood BLOOD SPECIMEN / Unknown Venipuncture / Unknown 06/06/2024 11:49 PM IGNITION EXPERT 06/07/2024 12:06 AM IGNITION EXPERT Joaquin Plascencia MD LAB - CHEMISTRY ORD ERABLES Performing Organization Address [facility] Co de Phone Number [address] [phone], [facility] [phone] * XR Abdomen Kub Portable (06/06/2024 6:55 PM IGNITION EXPERT) Anatomical Region Laterality Modality Abdomen Digital Radiogra phy 06/07/2024 9:01 AM IGNITION EXPERT Narrative 06/07/2024 9:10 AM IGNITION EXPERT PROCEDURE: XR ABDOMEN KUB PORTABLE, DATE/TIME OF EXAM: 06/06/2024 6:55 PM, LOCATION [facility] INDICATION: Z97.8: Endotracheally intubated ADDITIONAL CLINICAL INFORMATION: Ordering Provider Reason For Exam: OG tube placement Technologist Note: Additional: COMPARISON: None. TECHNIQUE: Supine frontal radiograph of the abdomen. FINDINGS/ IMPRESSION: Enteric tube with side port in the gastric body, tip is not visualized. > Dictated by Teressa Marcano MD, (head resident). I, Arun Lee MD have personally reviewed and interpreted this examination/study. > Interpreting Provider: Arun Lee MD on 06/07/2024 9:10 AM Procedure Note Arun Lee MD - 06/07/2024 PROCEDURE: XR ABDOMEN KUB PORTABLE, DATE/TIME OF EXAM: 06/06/2024 6:55PM, LOCATION [facility] INDICATION: Z97.8: Endotracheally intubated ADDITIONAL CLINICAL INFORMATION: Ordering Provider Reason For Exam: OG tube placement Technologist Note: Additional: COMPARISON: None. TECHNIQUE: Supine frontal radiograph of the abdomen. FINDINGS/ IMPRESSION: Enteric tube with side port in the gastric body, tip is not visualized. > Dictated by Teressa Marcano MD, (head resident). I, Arun Lee MD have personally reviewed and interpreted this examination/study. > Interpreting Provider: Arun Lee MD on 06/07/2024 9:10 AM Joaquin Plascencia MD DIAGNOSTIC IMAGING ORDERABLES * CK BLOOD (06/06/2024 3:06 PM IGNITION EXPERT) Pathologist [facility] CK Total 65 30 - 200 U/L 06/06/2024 3:43 PM [facility] Blood BLOOD SPECIMEN / Unknown Venipuncture / Unknown 06/06/2024 3:06 PM IGNITION EXPERT 06/06/2024 3:13 PM IGNITION EXPERT Joaquin Plascencia MD LAB - CHEMISTRY ORD ERABLES [facility] [address] [place] [phone], [facility] [phone] * ALCOHOL ETHYL BLOOD (06/06/2024 3:06 PM IGNITION EXPERT) Only the most recent of2 resultswithin the time period is included. Ethanol (mg/dL) <10 <10 mg/dL 3:43 PM [facility] Ethanol Calculated (g/dL) <0.010 <=0.010 g/dL 06/06/2024 3:43 PM [facility] Blood BLOOD SPECIMEN / Unknown Venipuncture / Unknown 06/06/2024 3:06 PM IGNITION EXPERT 06/06/2024 3:13 PM IGNITION EXPERT Narrative [facility] - 06/06/2024 3:43 PM IGNITION EXPERT Ethanol Interp <10: None Detected. Depression of FISHING ROD MECHANIC: >100 mg/dl Potentially Critical: >250 mg/dl Potentially Fatal >400 mg/dl Ethanol in the patient's blood will contribute to the osmolar gap. Ethanol's contribution to the osmolar gap can be estimated by dividing the concentration of ethanol in mg/dL by 4.6. This test is for clinical use only and does not equal a CAMILA for legal purposes. Joaquin Plascencia MD LAB - CHEMISTRY ORD ERABLES Performing Organization Address City/[facility]/ZIP Co de Phone Number [facility] [address] [place] [address], [facility] [phone] * OXCARBAZEPINE BLOOD (06/06/2024 2:38 PM IGNITION EXPERT) Pathologist [facility] Oxcarbazepine Metabolite 16.8 10.0 - 35.0 ug/mL 06/08/2024 9:16 PM IGNITION EXPERT DEZ[facility] ([facility]) Comment: INTERPRETIVE INFORMATION: Oxcarbazepine Metabolite, Serum Therapeutic Range: 10.0 - 35.0 ug/mL Toxic Range: >=40.0 ug/mL This test measures monohydroxyoxcarbazepine (MHD). Adverse effects may include dizziness, fatigue, nausea, headache, somnolence, ataxia, and tremor. Performed By: [email or web address] [address] [place] [address] Bridge Painter: Bola Sandoval MD, PhD CLIA Number: [id number] Blood BLOOD SPECIMEN / Unknown Venipuncture / Unknown 06/06/2024 2:38 PM IGNITION EXPERT 06/06/2024 2:43 PM IGNITION EXPERT Cornelio Mandujano MD LAB - CHEMISTRY OR DERABLES Performing Organization Address [facility]/ZIP Co de Phone Number [facility]) [address] [place] [address] * (ABNORMAL) TROPONIN-I HIGH SENSITIVE REFLEX 1HOUR (06/06/2024 2:35 PM IGNITION EXPERT) Pathologist [facility] Troponin I High Sensitive 19(H) <=14 ng/L 06/06/2024 3:23 PM IGNITION EXPERT [facility] Delta Troponin I HS 06/06/2024 3:23 PM [facility] Comment:Delta value intentio garcia not calculated. Baseline to 1 hour specimen collection interval exceeded. Blood BLOOD SPECIMEN / Unknown Venipuncture / Unknown 06/06/2024 2:35 PM IGNITION EXPERT 06/06/2024 2:49 PM IGNITION EXPERT Cornelio Mandujano MD LAB - CHEMISTRY OR DERABLES Performing Organization Address [facility] Co de Phone Number [address] [phone], [facility] [phone] * (ABNORMAL) URINALYSIS REFLEX MICROSCOPIC REFLEX CULTURE (06/06/2024 2:35 PM IGNITION EXPERT) Color UA Yellow Yellow, Straw 06/06/2024 2:58 PM [facility] Clarity UA Clear Clear 06/06/2024 2:58 PM [facility] Glucose UA Trace(A) Normal 06/06/2024 2:58 PM [facility] Bilirubin UA Negative Negative 06/06/2024 2:58 PM [facility] Ketone UA Negative Negative 06/06/2024 2:58 PM [facility] Specific Damar UA 1.043(H) 1.005 - 1.030 06/06/2024 2:58 PM [facility] Blood UA 1+(A) Negative 06/06/2024 2:58 PM [facility] pH UA 6.5 5.0 - 9.0 pH 06/06/2024 2:58 PM [facility] Protein UA 2+(A) Negative 06/06/2024 2:58 PM [facility] Urobilinogen UA Normal Normal mg/dL 06/06/2024 2:58 PM [facility] Nitrite UA Positive(A) Negative 06/06/2024 2:58 PM [facility] Leukocyte UA 75 ISIDRO/uL(A) Negative 06/06/2024 2:58 PM [facility] RBC UA 11-20(A) 0 - 5 # /hpf 06/06/2024 2:58 PM [facility] WBC UA 51-100(A) 0 - 5 # /hpf 06/06/2024 2:58 PM IGNITION EXPERT [facility] Bacteria UA 1+(A) None Seen 06/06/2024 2:58 PM IGNITION EXPERT [facility] Squamous Epithelial Cells 0-2 0 - 5 /hpf 06/06/2024 2:58 PM IGNITION EXPERT [facility] Transitional Epithelial Cell UA 0-2(A) None Seen /HPF 06/06/2024 2:58 PM IGNITION EXPERT [facility] Mucus UA 1+ /LPF 06/06/2024 2:58 PM IGNITION EXPERT [facility] Urine URINE SPECIMEN OBTAINED VIA [employer]WELL[employer] URINARY CATHETER / Unknown Collection / Unknown 06/06/2024 2:35 PM IGNITION EXPERT 06/06/2024 2:43 PM IGNITION EXPERT Narrative [facility] - 06/06/2024 2:58 PM IGNITION EXPERT Cornelio Mandujano MD LAB - URINALYSIS O RDERABLES [facility] [address] [place] [phone], [facility] [phone] * (ABNORMAL) LEVETIRACETAM LEVEL (06/06/2024 2:35 PM IGNITION EXPERT) Levetiracetam <2(L) 10 - 40 ug/mL 06/08/2024 9:58 AM IGNITION EXPERT [facility] ([facility]) Comment: INTERPRETIVE INFORMATION: Keppra (Levetiracetam) Therapeutic Range: 10-40 ug/mL Toxic: Not well Established Pharmacokinetics of levetiracetam are affected by renal function. Adverse effects may include somnolence, weakness, headache and vomiting. This levetiracetam (Keppra) immunoassay uses the [employer] reagents, which has known cross-reactivity with the drug brivaracetam (Briviact) and may report inaccurate results. Patients transitioning from levetiracetam to brivaracetam or those who are using both medications should not monitor drug concentrations with the [employer] assay. These patients should be monitored using a validated chromatographic methodology that distinguishes between drugs to determine drug concentrations. Performed By: [email or web address] [address] [place] [address] Bridge Painter: Bola Sandoval MD, PhD CLIA Number: [id number] Blood BLOOD SPECIMEN / Unknown Venipuncture / Unknown 06/06/2024 2:35 PM IGNITION EXPERT 06/06/2024 2:43 PM IGNITION EXPERT Cornelio Mandujano MD LAB - THERAPEUTIC DRUG MONITORING ORDERABLES [facility]) [address] [place], [place] [id number] [place] [address] * CULTURE URINE (06/06/2024 2:35 PM IGNITION EXPERT) Culture Urine More than 2 organisms seen at >=50,000 CFU/mL. Recollect if clinically indicated. CONNIE 06/08/2024 7:37 AM IGNITION EXPERT [facility] MICROBIOLOGY Urine URINE SPECIMEN OBTAINED VIA [employer]WELL[employer] URINARY CATHETER / Unknown Collection / Unknown 06/06/2024 2:35 PM IGNITION EXPERT 06/06/2024 2:43 PM IGNITION EXPERT Cornelio Mandujano MD LAB - MICROBIOLOGY ORDERABLES [facility] [address] [place], [address] [phone] * (ABNORMAL) URINE DRUG SCREEN IMMUNOASSAY (06/06/2024 2:35 PM IGNITION EXPERT) Pathologist [facility] Amphetamines Screen Urine Negative Negative : < 1000 ng/mL 06/06/2024 3:12 PM [facility] Barbiturates Screen Urine Negative Negative : < 200 ng/mL 06/06/2024 3:12 PM [facility] Benzodiazepine Screen Urine Positive(A) Negative : < 200 ng/mL 06/06/2024 3:12 PM [facility] Comment: Positive urine benzodiazepine screening results should be confirmed by another generally accepted non-immunological method such as gas chromatography or mass spectrometry. Opiates Urine Negative Negative : < 300 ng/mL 06/06/2024 3:12 PM [facility] Cocaine Metabolites Urine Negative Negative : < 300 ng/mL 06/06/2024 3:12 PM [facility] Phencyclidine Screen Urine Negative Negative : < 25 ng/ml 06/06/2024 3:12 PM [facility] Cannabinoids Screen Urine Negative Negative : <50 ng/mL 06/06/2024 3:12 PM [facility] Methadone Screen Urine Negative Negative : < 300 ng/mL 06/06/2024 3:12 PM [facility] Fentanyl Screen Urine Negative Negative : <1.5 ng/mL 06/06/2024 3:12 PM [facility] Urine URINE / Unknown Collection / Unknown 06/06/2024 2:35 PM IGNITION EXPERT 06/06/2024 2:43 PM IGNITION EXPERT [facility] - 06/06/2024 3:12 PM IGNITION EXPERT The Urine Toxicology Screening Panel does not screen for Propoxyphene, Meprobamate, Carisoprodol, Trazodone, [id number] medications and/or volatiles (Acetone, Isopropanol, Methanol or Ethylene Glycol). Ethanol, Salicylate, Acetaminophen, Tricyclic Antidepressants and several therapeutic drugs may be individually assayed in serum or plasma specimen. Toxicology testing by the [facility] is an aid to medical diagnosis and treatment of patients. No documented chain of custody was maintained. Results are intended to be used for clinical purposes only. Cornelio Mandujano MD LAB - URINE CHEMIS TRY ORDERABLES [facility] [address] [place] [phone], [facility] [phone] * EKG 12-LEAD (06/06/2024 2:16 PM IGNITION EXPERT) Ventricular Rate 66 BPM [facility] M[facility] Atrial Rate 66 BPM [facility] P-R Interval 178 ms [facility] QRS Duration ms 86 ms [facility] Q-T Interval ms 428 ms [facility] QTC Calculation (Bezet) 448 ms [facility] Calculated P [place] 74 degrees [facility] M[facility] Calculated R [place] 72 degrees [facility] M[facility] Calculated T [place] -135 degrees [facility] Interpretation EKG NORMAL SINUS RHYTHM ST & T WAVE ABNORMALITY, CONSIDER INFEROLATERAL ISCHEMIA ABNORMAL ECG WHEN COMPARED WITH ECG OF 17-FEB-2022 22:52, T WAVE INVERSION NOW EVIDENT IN INFERIOR LEADS T WAVE INVERSION MORE EVIDENT IN LATERAL LEADS Confirmed by MD STEPHANIE, ROLANDA ([id number]) on 06/07/2024 9:18:02 AM [facility] MUSE 06/06/2024 2:16 PM IGNITION EXPERT 06/07/2024 9:18 AM IGNITION EXPERT Cornelio Mandujano MD ECG ORDERABLES [facility] * CT ANGIO BRAIN NECK STROKE (06/06/2024 2:10 PM IGNITION EXPERT) Anatomical Region Laterality Modality Head Computed Tomogra phy 06/06/2024 3:04 PM IGNITION EXPERT Impressions 06/06/2024 3:19 PM IGNITION EXPERT IMPRESSION: 1. No large arterial occlusions, significant stenoses identified in the head or neck. 3. Enlarged pulmonary artery may represent underlying chronic pulmonary hypertension. The report is dictated by Kyle Ruiz MD, (head resident) IGael MD have personally reviewed and interpreted this examination/study. > Interpreting Provider: Gael Perdomo MD on 06/06/2024 3:19 PM Narrative 06/06/2024 3:19 PM IGNITION EXPERT PROCEDURE: CT ANGIO BRAIN NECK STROKE, DATE/TIME OF EXAM: 06/06/2024 2:11 PM, LOCATION [facility] INDICATION: Code Stroke ADDITIONAL CLINICAL INFORMATION: Ordering Provider Reason For Exam: Technologist Note: Additional: EXAMINATION: 1. Computed tomographic (CT) angiography of the head without and with contrast 2. CT angiography of the neck with contrast TECHNIQUE: CT of the head was performed without contrast according to standard protocol. Then CT angiography of the head and neck was obtained after the uneventful administration of intravenous contrast. Three dimensional postprocessing was performed by the technologist and sent to the workstation for review. CONTRAST: IOPAMIDOL 76 % IV SOLN:100 mL COMPARISON: No prior study is available for comparison at the time of this dictation. FINDINGS: See concurrent head CT for nonangiographic findings. There is an endotracheal tube with tip terminating in the mid thoracic trachea. There is a partially visualized enteric tube coursing along the esophagus. Angiographic findings: Neck: The main pulmonary artery is dilated measuring 3.3 cm. There is atherosclerotic disease of the aortic arch. The configuration of the brachiocephalic vessels is typical. The innominate artery and both subclavian arteries appear normal. The right common and internal carotid arteries as well as the right carotid bifurcation are patent. The left common and internal carotid arteries as well as the left carotid bifurcation are patent. The right cervical vertebral artery is hypoplastic. The left cervical vertebral artery is normal. Head: There is atherosclerotic disease involving the distal internal carotid arteries without significant focal stenosis. The anterior cerebral arteries are patent. The middle cerebral arteries are patent. The posterior cerebral arteries are patent. The distal vertebral arteries are patent. The basilar artery is patent. No aneurysms, spot sign, or signs of a high flow vascular malformation are identified. Procedure Note Gael Perdomo MD - 06/06/2024 PROCEDURE: CT ANGIO BRAIN NECK STROKE, DATE/TIME OF EXAM: :11 PM, LOCATION [facility] INDICATION: Code Stroke ADDITIONAL CLINICAL INFORMATION: Ordering Provider Reason For Exam: Technologist Note: Additional: EXAMINATION: 1. Computed tomographic (CT) angiography of the head without and with contrast 2. CT angiography of the neck with contrast TECHNIQUE: CT of the head was performed without contrast according to standard protocol. Then CT angiography of the head and neck was obtained after the uneventful administration of intravenous contrast. Three dimensional postprocessing was performed by the technologist and sent to the workstation for review. CONTRAST: IOPAMIDOL 76 % IV SOLN:100 mL COMPARISON: No prior study is available for comparison at the time ofthis dictation. FINDINGS: See concurrent head CT for nonangiographic findings. There is an endotracheal tube with tip terminating in the mid thoracic trachea. There is a partially visualized enteric tube coursing along the esophagus. Angiographic findings: Neck: The main pulmonary artery is dilated measuring 3.3 cm. There is atherosclerotic disease of the aortic arch. The configuration of the brachiocephalic vessels is typical. The innominate artery and both subclavian arteries appear normal. The right common and internal carotid arteries as well as the right carotid bifurcation are patent. The left common and internal carotid arteries as well as the left carotid bifurcation are patent. The right cervical vertebral artery ishypoplastic. The left cervical vertebral artery is normal. Head: There is atherosclerotic disease involving the distal internal carotid arteries without significant focal stenosis. The anterior cerebralarteries are patent. The middle cerebral arteries are patent. The posterior cerebral arteries are patent. The distal vertebral arteries are patent.The basilar artery is patent. No aneurysms, spot sign, or signs of a highflow vascular malformation are identified. IMPRESSION: 1. No large arterial occlusions, significant stenoses identified in the head or neck. 3. Enlarged pulmonary artery may represent underlying chronic pulmonary hypertension. The report is dictated by Kyle Ruiz MD, (head resident) I, Gael Perdomo MD have personally reviewed and interpreted this examination/study. > Interpreting Provider: Gael Perdomo MD on 06/06/2024 3:19 PM Cornelio Mandujano MD CT ORDERABLES * INR WHOLE BLOOD - POINT OF CARE (IP) STROKE (06/06/2024 2:01 PM IGNITION EXPERT) INR 1.2 0.9 - 1.2 06/06/2024 2:04 PM [facility] Device [id number] 06/06/2024 2:04 PM [facility] Accounts Payable Accountant ID [id number] 06/06/2024 2:04 PM [facility] Blood BLOOD SPECIMEN / Unknown 06/06/2024 2:01 PM IGNITION EXPERT 06/06/2024 2:04 PM IGNITION EXPERT Cornelio Mandujano MD LAB - POINT OF CAR E ORDERABLES Performing Organization Address City/[facility] Co de Phone Number [facility] [address] [place] [phone], [facility] [phone] * (ABNORMAL) CREATININE - POCT INTERFACED (06/06/2024 2:01 PM IGNITION EXPERT) Creatinine POCT 1.05 0.30 - 1.30 mg/dL 06/06/2024 2:04 PM [facility] eGFR 53(L) >=90 mL/min/1.7 3 m2 06/06/2024 2:04 PM [facility] Blood BLOOD SPECIMEN / Unknown 06/06/2024 2:01 PM IGNITION EXPERT 06/06/2024 2:04 PM IGNITION EXPERT Cornelio Mandujano MD LAB - POINT OF CAR E ORDERABLES [facility] [address] [place] [address], [facility] [phone] * CT BRAIN - Stroke (06/06/2024 1:58 PM IGNITION EXPERT) Anatomical Region Laterality Modality Head Computed Tomogra phy 06/06/2024 2:05 PM IGNITION EXPERT Impressions 06/06/2024 2:10 PM IGNITION EXPERT IMPRESSION: 1. No acute intracranial hemorrhage. 2. Redemonstration of a large chronic infarct in the left frontoparietal lobe in the left MCA distribution. These findings were discussed in detail with the patient's care provider, Dr. Gomez by Dr. Dailey via telephone at 06/06/2024 2:08 PM with readback comprehension and verification. > Interpreting Provider: Fern Dailey MD on 06/06/2024 2:10 PM Narrative 06/06/2024 2:10 PM IGNITION EXPERT PROCEDURE: CT BRAIN STROKE, DATE/TIME OF EXAM: 06/06/2024 2:01 PM, LOCATION [facility] INDICATION: Code Stroke ADDITIONAL CLINICAL INFORMATION: Ordering Provider Reason For Exam: Technologist Note: Additional: TECHNIQUE: CT of the head was performed without contrast according to standard protocol. CONTRAST: COMPARISON: 10/05/2021. FINDINGS: No acute intracranial hemorrhage or intra- or extra-axial fluid collections are identified. There is mild cerebral volume loss with associated ex vacuo ventricular dilatation. Redemonstration of a large chronic infarct in the left frontoparietal lobe in the left MCA distribution. The basal cisterns are patent. No mass effect or midline shift is seen. The yadav-white matter differentiation is normal. Periventricular white matter hypoattenuation is a nonspecific finding that may be indicative of chronic small vessel ischemic disease. There is atherosclerotic calcification of the carotid siphons. Redemonstration of a calcified mass in the high left parietal region near to vertex measuring up to 2.5 cm, likely representing a calcified meningioma. Other than bilateral cataract extractions, the visualized portions of the orbits, paranasal sinuses, and mastoids appear normal. No acute calvarial fracture is identified. Procedure Note Fern Dailey MD - 06/06/2024 PROCEDURE: CT BRAIN STROKE, DATE/TIME OF EXAM: 06/06/2024 2:01 PM,LOCATION [facility] INDICATION: Code Stroke ADDITIONAL CLINICAL INFORMATION: Ordering Provider Reason For Exam: Technologist Note: Additional: TECHNIQUE: CT of the head was performed without contrast according to standard protocol. CONTRAST: COMPARISON: 10/05/2021. FINDINGS: No acute intracranial hemorrhage or intra- or extra-axial fluidcollections are identified. There is mild cerebral volume loss with associated exvacuo ventricular dilatation. Redemonstration of a large chronic infarct inthe left frontoparietal lobe in the left MCA distribution. The basalcisterns are patent. No mass effect or midline shift is seen. The yadav-whitematter differentiation is normal. Periventricular white matter hypoattenuationis a nonspecific finding that may be indicative of chronic small vessel ischemic disease. There is atherosclerotic calcification of the carotid siphons. Redemonstration of a calcified mass in the high left parietal region near to vertex measuring up to 2.5 cm, likely representing a calcified meningioma. Other than bilateral cataract extractions, the visualized portions ofthe orbits, paranasal sinuses, and mastoids appear normal. No acute calvarial fracture is identified. IMPRESSION: 1. No acute intracranial hemorrhage. 2. Redemonstration of a large chronic infarct in the left frontoparietal lobe in the left MCA distribution. These findings were discussed in detail with the patient's careprovider, Dr. Gomez by Dr. Dailey via telephone at 06/06/2024 2:08 PM with readback comprehension and verification. > Interpreting Provider: Fern Dailey MD on 06/06/2024 2:10 PM Cornelio Mandujano MD CT ORDERABLES * (ABNORMAL) PT-INR [facility] (06/06/2024 1:52 PM IGNITION EXPERT) PT 15.5(H) 12.1 - 14.8 Seconds 06/06/2024 2:26 PM IGNITION EXPERT [facility] INR 1.3 See Comment 06/06/2024 2:26 PM IGNITION EXPERT [facility] Comment:The suggested therap eutic range for standard coumadin (warfarin) therapy is an INR of 2.0-3.0. For high-risk patients (Mechanical Mitral Valve Prosthesis, etc.), the suggested prophylactic therapeutic range is an INR of 2.5-3.5. Blood BLOOD SPECIMEN / Unknown Venipuncture / Unknown 06/06/2024 1:52 PM IGNITION EXPERT 06/06/2024 1:59 PM IGNITION EXPERT Cornelio Mandujano MD LAB - COAGULATION ORDERABLES Performing Organization Address [facility]/ZIP Co de Phone Number [address] [phone], [employer] [place] [phone] * (ABNORMAL) TROPONIN-I HIGH SENSITIVE BASELINE + 1HR (06/06/2024 1:52 PM IGNITION EXPERT) Pathologist [facility] Troponin I High Sensitive 20(H) <=14 ng/L 06/06/2024 2:29 PM IGNITION EXPERT [facility] Blood BLOOD SPECIMEN / Unknown Venipuncture / Unknown 06/06/2024 1:52 PM IGNITION EXPERT 06/06/2024 1:59 PM IGNITION EXPERT Cornelio Mandujano MD LAB - CHEMISTRY OR DERABLES Performing Organization Address [facility] Co de Phone Number [address] [address], [place] [phone] * TYPE + SCREEN PANEL (06/06/2024 1:52 PM IGNITION EXPERT) [facility] Antibody Screen NEG 2:46 PM IGNITION EXPERT [facility] BLOOD BANK LAB ABO Rh A POS 06/06/2024 2:46 PM IGNITION EXPERT [facility] BLOOD BANK LAB Blood Bank BLOOD SPECIMEN / Unknown Venipuncture / Unknown 06/06/2024 1:52 PM IGNITION EXPERT 06/06/2024 2:05 PM IGNITION EXPERT Cornelio Mandujano MD LAB - BLOOD BANK O RDERABLES Performing Organization Address [facility]/ZIP Co de Phone Number [facility] BLOOD BANK LAB [address] [place] [phone], [place] [phone] * (ABNORMAL) COMPREHENSIVE METABOLIC PANEL (06/06/2024 1:52 PM IGNITION EXPERT) Pathologist [facility] BUN 17 7 - 26 mg/dL 06/06/2024 2:25 PM [facility] Creatinine 1.17(H) 0.56 - 0.96 mg/dL 06/06/2024 2:25 PM [facility] Sodium 138 136 - 145 mmol/L 06/06/2024 2:25 PM [facility] Potassium 4.6(H) 3.5 - 4.5 mmol/L 06/06/2024 2:25 PM [facility] Chloride 105 98 - 107 mmol/L 06/06/2024 2:25 PM [facility] CO2 17(L) 22 - 29 mmol/L 06/06/2024 2:25 PM [facility] Glucose 212(H) 70 - 99 mg/dL 06/06/2024 2:25 PM [facility] Calcium 8.0(L) 8.4 - 10.2 mg/dL 06/06/2024 2:25 PM [facility] Protein Total 6.3 6.0 - 8.3 g/dL 06/06/2024 2:25 PM [facility] Albumin 3.5 3.4 - 5.0 g/dL 06/06/2024 2:25 PM [facility] Bilirubin Total 0.4 0.2 - 1.2 mg/dL 06/06/2024 2:25 PM [facility] Alkaline Phosphatase 153(H) 40 - 150 U/L 06/06/2024 2:25 PM [facility] ALT 201(H) 5 - 55 U/L 06/06/2024 2:25 PM [facility] AST 316(H) 5 - 34 U/L 06/06/2024 2:25 PM [facility] Anion Gap 16 6 - 16 06/06/2024 2:25 PM [facility] BUN/Creatinine Ratio 15 7 - 23 06/06/2024 2:25 PM [facility] Osmolality Calculated 294 275 - 295 mOsm/kg 06/06/2024 2:25 PM [facility] Albumin/Globulin Ratio 1.3 1.1 - 2.3 06/06/2024 2:25 PM [facility] eGFR by CKD-EPI 47(L) >=90 mL/min/1.7 3 m2 06/06/2024 2:25 PM IGNITION EXPERT [facility] Blood BLOOD SPECIMEN / Unknown Venipuncture / Unknown 06/06/2024 1:52 PM IGNITION EXPERT 06/06/2024 1:59 PM IGNITION EXPERT Cornelio Mandujano MD LAB - CHEMISTRY OR DERABLES [facility] [address] [place] [address], [facility] [phone] from Last 3 Months Advance Directives Documents on File Type Date Recorded Patient Reception Interviewer Expl anation Adv Directive/Living Will/POA 10/13/2021 12:34 PM * LIMITED RESUSCITATION-PRIOR AND AFTER ARREST (Latest Code Status on File) Date Activated Date Inactivated Comments 06/08/2024 12:32 PM 06/15/2024 6:52 PM Question Answer Comments Limited Resuscitation: No Chest Compress ionNo Cardioversion, No Defibrilation, No External or Internal PacemakerNo Intubation, No Invasive Ventilation Code Bracelet Applied: Yes * LIMITED RESUSCITATION-PRIOR AND AFTER ARREST Date Activated Date Inactivated Comments 06/06/2024 3:35 PM 06/08/2024 12:32 PM Question Answer Comments Limited Resuscitation: No Chest Compress ionNo Cardioversion, No Defibrilation, No External or Internal PacemakerNo Cardioactive Drugs, No Vasopressors * Full Code Date Activated Date Inactivated Comments 06/06/2024 3:02 PM 06/06/2024 3:35 PM * LIMITED RESUSCITATION-PRIOR AND AFTER ARREST Date Activated Date Inactivated Comments 10/05/2021 1:15 PM 10/12/2021 5:53 PM Question Answer Comments Limited Resuscitation: No Intubation, No Invasive VentilationNo Cardioversion, No Defibrilation, No External or Internal PacemakerNo Chest Compression * DNR - IF PULSELESS NO CPR, NO SHOCK Date Activated Date Inactivated Comments 10/05/2021 12:17 PM 10/05/2021 1:15 PM Question Answer Comments : DO NOT discontinue a ny active orders without asking attending physician. Care Teams Cut Lace Machine Operator Relationship Specialty Start Date End Date Fernando Caputo MD [address] [place] [phone] PCP - General Internal Medicine 05/30/24 Maria Del Carmen Gil MD [address] [place] [address] 07/24/20 Maria Del Carmen Gil MD [address] [place] [phone] Gastroenterology 07/22/20 Maria Del Carmen Gil MD [address] [place] [phone] 07/15/20
--- NOTE | 2024-07-13 11:08 | ED_ITS ---
HPI - General Adult General Chief complaint: Recheck/Abnormal Lab/Rx Stated complaint: elevated BP Time Seen by Provider: 07/13/24 10:59 History of Present Illness HPI narrative: This is an 84-year-old female presenting ED for complaint of elevated blood pressure. She was getting her suprapubic catheter switched out earlier today when the nursing staff noticed that her blood pressure was elevated at 190/100. They then recommended she come to the hospital to be evaluated emergently. Patient is asymptomatic. She says that she feels fine overall. She is denying headaches, chest pain, difficulty breathing or any new neurologic deficits. She took her dose of losartan 50 mg this morning. Related Data Home Medications ?Medication ?Instructions ?Recorded ?Confirmed ?Last Taken ?Type misoprostol 200 mcg tablet 200 mcg PO DAILY 11/05/19 02/04/24 02/03/24 History atorvastatin 80 mg tablet 80 mg PO HS 08/29/20 02/04/24 02/03/24 History citalopram 20 mg tablet 20 mg PO DAILY 05/11/22 02/04/24 02/03/24 History buspirone 15 mg tablet 15 mg PO TID 01/04/23 02/04/24 02/03/24 History pyridoxine (vitamin B6) 100 mg 100 mg PO DAILY 01/04/23 02/04/24 02/03/24 History tablet potassium bicarbonate-citric acid 25 meq PO BID 02/04/24 02/04/24 02/03/24 History 25 mEq effervescent tablet (Effer-K) Allergies Allergy/AdvReac Type Severity Reaction Status Date / Time naproxen Allergy Severe cardiac Verified 07/05/23 18:14 arrest NSAIDS (Non-Steroidal Allergy Severe cardiac Verified 07/05/23 18:14 Anti-Inflamma arrest morphine Allergy Mild unknown Verified 07/05/23 18:14 [facility] Past Medical History Medical History Left-sided cerebrovascular accident (CVA) Chronic kidney disease Meningioma Seizure disorder Gastrojejunal ulcer with hemorrhage Urinary incontinence Expressive aphasia Ischemic cerebrovascular accident (CVA) (08/14/20) Treated with tPA and thrombectomy Atrophy of left kidney History of gastroscopy 08/18/09, 09/09/09, with structure Vaginal delivery 1960, , full term, female, 7#10 1970, , full term, female, 7#10 Hypertension Iron (Fe) deficiency anemia Surgical History Surgical History History of spinal surgery 02/10/16 lumbar decompressive laminectomy, transformal lumbar interbody fusion with PEEK spacers, posterior intertransverse fusion, posterior spinal instrumentation, harvesting bone graft History of knee replacement 03/31/04 bilateral History of meniscectomy of right knee 03/29/03 orthoscopic with lateral release History of stress incontinence procedure using tension free vaginal tape 05/18/01 History of meniscectomy of left knee 05/18/00 orthoscopic with lateral release History of spinal fusion 03/14/98 cervical discectomy and fusion of c4-6 10/27/98 anterior interbody fusion level using MARCUS L4-5, L3-4, Doscectomy/fusion lt iliac crest graft 10/12/01 cervical discectomy and fusion of c6-7 History of hysterectomy 07/1982 total History of eye surgery 11/05/14 cataract right eye, 11/20/14 cataract left eye, 07/28/18 bilateral removal of scar tissue History of esophagogastroduodenoscopy (EGD) 04/25/12, with upper GI Hx of breast surgery 07/27/10, mastopexy History of breast biopsy 06/09/10, stereotactic, biopsy rt breast History of laparoscopy 03/17/10, reduction of small bowel obstruction, release of internal hernia History of endoscopy 12/16/09, 02/10/10, 08/25/10, 04/26/18 History of cholecystectomy 05/09/09 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 H/O right heart catheterization 12/17/08 unsure if lt or rt H/O rectal polypectomy 11/13/08, 08/27/03 Family History Family History Grandparent Family history of malignant neoplasm of ovary Father Family history of lung cancer Sibling Family history of lung cancer Social History Social History Social History: Surrogate medical decision maker: Pavithra Vargas ([phone]), daughter. Code status: Full code. Smoking status: Never smoker Alcohol intake: never Substance use: never Substance use type: does not use Do You Feel Safe in your Home?: Yes Lack of Transportation: No Lack of Food: Never True Current Housing: I Have Housing Concerned About Future Housing: No Difficulty Paying Gas/Electric Bills: No Difficulty Paying for Meds: No Currently Unemployed: No Education: High School Diploma/GED Difficulty w/ Childcare or Family Care: No Living arrangements: with family Additional living arrangements comments: with 2 children. She lives with her significant other in [place]. 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 Spiritual care concerns: No Exam Narrative: APPEARANCE: No apparent distress. Head: atraumatic. EYES: EOMI, NOSE: Atraumatic NECK: Trachea midline RESPIRATORY: No increased rate of breathing, clear to auscultation CARDIOVASCULAR: RRR, no peripheral edema ABDOMINAL: Non-distended soft nontender no guarding or rebound MUSCULOSKELETAl: No obvious deformities NEURO: Alert. Mild aphasia, Cranial nerves 2-12 grossly intact. Sensation light touch, motor function cerebellar function intact for 4 extremities. Gait exam was deferred SKIN:: Warm, dry. Normal color PSYCHIATRIC: Normal affect Course Vital Signs Vital signs: Vital Signs Temperature 97.9 F 07/13/24 10:31 Pulse Rate 75 07/13/24 10:31 Respiratory Rate 16 07/13/24 10:31 Blood Pressure 196/92 H 07/13/24 10:31 Pulse Oximetry 99 07/13/24 10:31 Oxygen Delivery Room Air 07/13/24 10:31 Temperature 97.9 F 07/13/24 10:31 Pulse Rate 75 07/13/24 10:31 Respiratory Rate 16 07/13/24 10:31 Blood Pressure 196/92 H 07/13/24 10:31 Pulse Oximetry 99 07/13/24 10:31 Oxygen Delivery Room Air 07/13/24 10:31 Medical Decision Making MDM Narrative Medical decision making narrative: -Course: 84-year-old female sent from her clinic for asymptomatic hypertension. Patient is resting comfortably with no complaints. Her neurologic exam is at her baseline with some mild aphasia but no other focal deficits. She has no chest pain,difficulty breathing. I discussed doing a workup including CT of her head and laboratory studies and the patient is not interested. She states that she feels fine overall and does not want the emergency department. Patient was given a 50 mg dose of losartan. She has been instructed to call her primary care physician and schedule follow-up. She should return to the ED if she develops confusion, new neurologic deficits chest pain or difficulty breathing. Vital Signs Vital Signs: Vital Signs Temperature 97.9 F 07/13/24 10:31 Pulse Rate 75 07/13/24 10:31 Respiratory Rate 16 07/13/24 10:31 Blood Pressure 196/92 H 07/13/24 10:31 Pulse Oximetry 99 07/13/24 10:31 Oxygen Delivery Room Air 07/13/24 10:31 Temperature 97.9 F 07/13/24 10:31 Pulse Rate 75 07/13/24 10:31 Respiratory Rate 16 07/13/24 10:31 Blood Pressure 196/92 H 07/13/24 10:31 Pulse Oximetry 99 07/13/24 10:31 Oxygen Delivery Room Air 07/13/24 10:31 Discharge Plan Discharge Clinical Impression: Asymptomatic hypertension Patient Disposition: Home Condition: Stable Instructions: Antibiotic Form, Hypertension (ED) Additional Instructions: Using emergency department for hypertension. Please continue taking your losartan as directed. Please call your primary care physician to schedule outpatient follow-up. If you develop any new neurologic deficits, headache, chest pain or difficulty breathing please return to the ED for re-evaluation Patient Language: Nigerien Prescriptions: No Action misoprostol 200 mcg tablet 200 mcg PO DAILY Rx Instructions: administer with meal citalopram 20 mg Tablet 20 mg PO DAILY atorvastatin 80 mg tablet 80 mg PO HS pyridoxine (vitamin B6) 100 mg tablet 100 mg PO DAILY buspirone 15 mg tablet 15 mg PO TID sucralfate 100 mg/mL Suspension 1,000 mg PO ACHS Qty: 1000 1RF ferrous sulfate 325 mg (65 mg iron) tablet 325 mg PO BID Qty: 60 0RF Effer-K 25 mEq tablet, effervescent 25 meq PO BID losartan 50 mg tablet 50 mg PO DAILY Qty: 30 0RF levetiracetam 1,000 mg tablet 1,000 mg PO BID Qty: 60 0RF clopidogrel 75 mg Tablet 75 mg PO QAM Qty: 30 0RF cefdinir 300 mg capsule 300 mg PO Q12H 7 Days Qty: 14 0RF pantoprazole 40 mg tablet,delayed release (DR/EC) See Rx Instructions .ROUTE .COMPLEX Qty: 180 3RF Dose Instruction: TAKE 1 TABLET BY MOUTH TWICE A DAY Rx Instructions: TAKE 1 TABLET BY MOUTH TWICE A DAY Follow-up/Referrals: Jeffery,Maria Del Carmen Horton MD [Primary Care Provider] -
[2024-07-13] MEDS: LOSARTAN POTASSIUM 50 MG TABLET PO (11:16)
[2024-07-13 11:25] VITALS: BP 165/75; PULSE 65; RESP 23; TEMP 37.1; O2SAT 99
--- OUTSIDE RECORDS SUMMARY | 2024-07-13 11:39 | XMS_ITS | Encounter Summary ---
Author Organization [facility] Address [address] [place] [address] Care Team Providers Care Window Clerk Name Role Phone Maria Del Carmen Gil MD Primary Care Provider [phone] Maria Del Carmen Gil MD Unavailable [phone] Maria Del Carmen Gil MD Unavailable [phone] Encounter Details Date Type Department Care Team (Latest Contact Info) Description 07/22/2020 11:46 AM CDT Hospital Encounter [facility] [id number] [place] [id number] [place] [address] [facility] [place] [address] [employer] Social History Tobacco Use Types [...] any time in the past 12 m [facility], were you homeless or living in a [...] Visit [facility] - Neurology [address] [place] [phone] Kyung Haq APRN-ACCOUNTING SUPERVISOR [address] [place] [id number] documented as of this encounter Visit Diagnoses Not on filedocumented in this encounter Additional Health Concerns Infection Onset Date Last Indicated Resolved Time COVID-19 Under Investigation 10/05/2021 10/05/2021 10/05/2021 11:10 AM CDT documented as of this encounter Care Teams Window Clerk Relationship Specialty Start Date End Date Maria Del Carmen Gil MD [address] [place] [address] PCP - General 07/22/20 07/23/20 Maria Del Carmen Gil MD [address] [place] [address] Gastroenterology 07/22/20 Maria Del Carmen Gil MD [address] [place] [address] 07/15/20 documented as of this encounter
--- OUTSIDE RECORDS SUMMARY | 2024-07-13 11:39 | XMS_ITS | CONTINUITY OF CARE DOCUMENT ---
Author Name yara livingston Address Unknown Organization [facility] Address [address] [place] [address] Phone [phone] Care Team Providers Care Workforce Investment Act Career Manager Name Role Phone Tom ORO, Scott Unavailable NELA LEUNG MD Unavailable [phone] NELA LEUNG MD Unavailable PROBLEMS Condition Status Date Provider Notes Cardiology examination active Scott kumar MD TIA active Scott Santos MD Meningioma, brain active Scott Santos MD Palpitations active Yves Alarconte ENCOUNTERS Date Type Provider Location Encounter Diag nosis - In-person encounter Office Visit Scott Santos MD [place] [facility] - In-person encounter Office Visit Scott Santos MD [facility] Cardiology examinationTIAMeningioma , brainPalpitations VITAL SIGNS [...] 0-149 1 cholesterol, serum 162 mg/dL [employer] [id number]/02/[id number] 1 free thyroxine index 1.8 [employer] 1.2-4.9 [...] Payer name Policy type / Coverage type Tyler red republican ID AETNA [facility] Other [id number] [place] MEDICARE PART B Medicare [id number] ADVANCE DIRECTIVES Name Date DISCUSSED - NO [...]
--- OUTSIDE RECORDS SUMMARY | 2024-07-13 11:39 | XMS_ITS | Clinical Summary ---
Author Organization [facility] Address [address] [place] [address] Care Team Providers Care Field Operations Farm Manager Name Role Phone Maria Del Carmen Gil MD Primary Care Provider [phone] Allergies Active Allergy Reactions Criticality Noted Date [...] Take 1 Capsule by mouth. Active omega 8-gxw-lvi-fish oil 60-90-500 mg Capsule Take by mouth. [...] 57.2 kg (126 lb) 02/20/2019 2:23 PM SR TECHNICAL SALES CONSULTANT Height 157.5 cm (5' 2 ) 02/20/2019 2:23 PM SR TECHNICAL SALES CONSULTANT Body Mass Index 23.05 02/20/2019 2:23 PM SR TECHNICAL SALES CONSULTANT Plan of Treatment Health Maintenance Due Date Last Done Comments DTAP/TDAP/TD VACCINES (1 - Tdap) 1961 PNEUMOCOCCAL VACCINE 50+ YEARS (1 of 1 - PCV) 04/30/18 93 ZOSTER VACCINE (1 of 2) 1992 OSTEOPOROSIS SCREENING 2007 RSV VACCINE (60+ or ) (1 - 1-dose 75+ series) 2017 INFLUENZA VACCINE (#1) 2023 Insurance MEDICARE PART A AND B AETNA CHOICE POS II Care Teams Field Operations Farm Manager Relationship Specialty Start [place] [address] [address] [address] PCP - General Gastroenterology 01/09/19
--- OUTSIDE RECORDS SUMMARY | 2024-07-13 11:39 | XMS_ITS | Clinical Summary ---
Author Organization [facility] Address [address] [place], [place] [id number] Care Team Providers Care Lap Cutter Name Role Phone Unavailable Primary Care Provider [...]
--- OUTSIDE RECORDS SUMMARY | 2024-07-13 11:39 | XMS_ITS | Continuity of Care Document ---
Author Organization [facility] Address [address] [place] [address] Phone Care Team Providers Care Customs Director Name Role Phone Ankush Barrera MD Unavailable [...] No Longer Active Procedures Procedure Date OFFICE [id number] BODY MASS INDEX DOCD SYST BP >= 140 MM HG6 IT DIAST BP >= 90 MM HG Advance Directives Directive Yes / No Effective Date File Name No Information Encounters Encounter Description Practice Location Reason(s) For Visit Diagnoses Date Provider Providers Copied on Encounter OFFICE [id number], [address], [place], [place], [id number] , [place] tel: [phone] [facility] GI issues (chief complaint) Early satietyNauseaEpiga stric pain 0 Bruce Lechuga. [address] [facility], [address], [place], [place], [id number] , [place]. tel: [phone] Referring Provider: Win Gil, [address] [place] [address], [address]. tel:[phone] Family History Family Member Type Diagnosis Age [...] democrat ID Authoriza tion(s) AETNA PPO CI [id number] MEDICARE MB [id number] Social History Type Description Quantity Date Captured [...] Mental Status Date Cognitive Assessment Orientation - Idanha ed to time, place, person, situation. Patient Care Teams Name Effective Dates (start - stop) Status Members No Information
--- OUTSIDE RECORDS SUMMARY | 2024-07-13 11:39 | XMS_ITS | Clinical Summary ---
Author Organization [facility] Address [address] [place] [address] Care Team Providers Care Detective Bureau Chief Name Role Phone Maria Del Carmen Gil [...] 4 (four) hours as needed. 07/22/2020 Active Donie-3 Fatty Acids (OMEGA-3 FISH OIL OR) Take [...] age to complete this topic Insurance [facility]ICARE [facility] Care Teams Detective Bureau Chief Relationship Specialty Start Date End Date Maria Del Carmen Gil MD [address] [facility] [address] [place] [address] PCP - General INTERNAL MEDICINE 11/06/20
--- OUTSIDE RECORDS SUMMARY | 2024-07-13 11:39 | XMS_ITS | Clinical Summary ---
Author Organization [facility] Address [address] [place] [address] Phone Care Team Providers Care Publicity Manager Name Role Phone Provider, Not On File [...] Not on file Insurance MEDICARE Care Teams Publicity Manager Relationship Specialty Start Date End Date Provider, Not On File [place] PCP - General 11/12/15
--- OUTSIDE RECORDS SUMMARY | 2024-07-13 11:39 | XMS_ITS | Clinical Summary ---
Author Organization [facility] [email or web address] Address [address] [place] [address] Care Team Providers Care Wedding Cake Designer Name Role Phone Maria Del Carmen Gil MD Unavailable [phone] Maria Del Carmen Gil MD Unavailable [phone] Maria Del Carmen Gil MD Unavailable [phone] Fernando Caputo MD Primary Care Provider Source Comments [facility],non-owned Affiliates and Associated Physician Practices is amultiple site organization consisting of ambulatory clinics and hospital sitesin [place], [place], [place] and [place]. This disclosure is being madepursuant to the Care Everywhere program and may not contain all information available regarding this patient. Last updated 17.[facility] Allergies Active Allergy Reactions Criticality Noted Date [...] (one) tablet by mouth once daily Active [place]-3 Fatty Acids (FISH OIL PO) Take by [...] Frequency of micturition 02/21/2024 Hematuria, unspecified 02/21/2024 terminal worker (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 02/21/2024 Metabolic encephalopathy 02/21/2024 Noninfective gastroenteritis and colitis, unspec ified 02/21/2024 Other fecal abnormalities 02/21/2024 Other snf (current) drug therapy Pain due to genitourinary [...] Team Description 06/18/2024 Telephone Transitional Care at [address] [phone] Cheri Harrell RNnews assignment editor 06/07/2024 Travel 06/06/2024 1:41 PM GARBAGE TRUCK HELPER - 06/15/2024 4:45 PM CDT Hospital Encounter JEANETTE HALL [address] [place] [phone] Cornelio Mandujano MD Linares, MD Anurag Nuñez, MD Dandre Morillo, MD Elio Rodarte, MD Bushra Garcia Ryan, Neurology Discharge Dis[place]: [place] [facility] [place] 12:30 PM GARBAGE TRUCK HELPER Office Visit [facility] - Neurology [address] [place] [phone] Kyung Haq APRN-CNP Localization-related (focal) (partial) idiopathic epilepsy and epileptic syndromes with seizures of localized onset, not intractable, without status epilepticus (Primary Dx) 05/30/2024 Telephone [facility] - Neurology [address] [place] [phone] Kyung Haq APRN-CNP Results (Lab Results from [...] were you homeless or living in a nursing home (including now)? Patient unable to answer 06/07/2024 [...] Oxygen Concentration 35% 06/08/2024 1 0:00 AM GARBAGE TRUCK HELPER Weight 50.1 kg (110 lb 7.2 oz) 06/09/2024 2:00 A M GARBAGE TRUCK HELPER Height 160 cm (5' 2.99 ) 06/07/2024 3:00 AM GARBAGE TRUCK HELPER Body Mass Index 19.57 06/07/2024 3:00 AM GARBAGE TRUCK HELPER Plan of Treatment Upcoming Encounters Date Type Department Care Team (Late st Contact Info) Description 11/27/2024 1:00 PM CDT Office Visit [facility] - Neurology [address] [facility] [phone] Kyung Haq, KIRSTEN-AIR/OCEAN EXPORT CLERK [address] [place] [phone] Health Maintenance Due Date Last Done Comments [...] this topic Medical Devices Implanted Type Area Alum Plant Supervisor Device Identifier Shelf Expiration Date Model / Serial / Lot Rcdr Crd Rvl Linq Loop - [id number] Implanted:Qty: 1 on 07/21/2020 by Fanny Beach MD at [facility] Loop Recorder Chest Wall [employer] [address] 03/01/2021 [id number] / [id number] / Wire K .035 X 5.5in Implanted:Qty: 2 on 06/20/2014 by Josh Sibley MD at [facility] Right: [employer]umb [employer] 5600-21-0 00 / / Description:Placed [...] CDT PHOSPHORUS BLOOD Routine 06/09/2024 1:54 AM GARBAGE TRUCK HELPER MAGNESIUM BLOOD Routine 06/09/2024 1:54 AM GARBAGE TRUCK HELPER CBC W AUTO DIFFERENTIAL Routine 06/09/2024 1:54 AM GARBAGE TRUCK HELPER BASIC METABOLIC PANEL (CALCIUM TOTAL) Routine 06/09/2024 1:[address] HEAD WO CONTRAST STAT 06/08/2024 5 :47 PM GARBAGE TRUCK HELPER Endotracheally intubated XR CHEST 1VW PORTABLE Routine 06/08/2024 4:50 PM GARBAGE TRUCK HELPER Altered mental status, unspecified altered mental status type MRSA DNA PCR STAT 06/08/2024 4:43 PM GARBAGE TRUCK HELPER HEPATIC FUNCTION PANEL STAT 8:28 AM GARBAGE TRUCK HELPER PHOSPHORUS BLOOD Routine 06/07/2024 11:3 4 PM GARBAGE TRUCK HELPER MAGNESIUM BLOOD Routine 06/07/2024 11:34 PM GARBAGE TRUCK HELPER CBC W AUTO DIFFERENTIAL Routine 06/07/2024 11:34 PM GARBAGE TRUCK HELPER BASIC METABOLIC PANEL (CALCIUM TOTAL) Routine 06/07/2024 11:34 PM GARBAGE TRUCK HELPER BLOOD GASES RANDI + COOX PANEL Routine 06/07/2024 6:32 AM GARBAGE TRUCK HELPER BLOOD GASES ART + COOX PANEL Routine 06/07/2024 3:12 AM GARBAGE TRUCK HELPER BLOOD GASES ART + COOX PANEL STAT 06/07/2024 12:33 AM GARBAGE TRUCK HELPER TRIGLYCERIDES BLOOD Timed 06/06/2024 1 1:49 PM GARBAGE TRUCK HELPER PHOSPHORUS BLOOD Routine 06/06/2024 11:4 9 PM GARBAGE TRUCK HELPER MAGNESIUM BLOOD Routine 06/06/2024 11:49 PM GARBAGE TRUCK HELPER CBC W AUTO DIFFERENTIAL Routine 06/06/2024 11:49 PM GARBAGE TRUCK HELPER BASIC METABOLIC PANEL (CALCIUM TOTAL) Routine 06/06/2024 11:49 PM GARBAGE TRUCK HELPER XR ABDOMEN KUB PORTABLE STAT 06/06/2024 6:55 PM GARBAGE TRUCK HELPER Endotracheally intubated XR CHEST 1VW PORTABLE STAT 06/06/2024 6:55 PM GARBAGE TRUCK HELPER Endotracheally intubated VENTILATOR LIBERATION TRIAL PROTOCOL Routine 06/06/2024 6:49 PM GARBAGE TRUCK HELPER ALCOHOL ETHYL BLOOD STAT 06/06/2024 3 :06 PM GARBAGE TRUCK HELPER CK BLOOD STAT 06/06/2024 3:06 PM GARBAGE TRUCK HELPER OXCARBAZEPINE BLOOD STAT 06/06/2024 2 :38 PM GARBAGE TRUCK HELPER BLOOD GASES RANDI + COOX PANEL Timed 06/06/2024 2:35 PM GARBAGE TRUCK HELPER TROPONIN-I HIGH SENSITIVE REFLEX 1HOUR Timed 06/06/2024 2:35 PM GARBAGE TRUCK HELPER LEVETIRACETAM LEVEL STAT 06/06/2024 2 :35 PM GARBAGE TRUCK HELPER URINALYSIS REFLEX MICROSCOPIC REFLEX CULTURE STAT 06/06/2024 2:35 PM GARBAGE TRUCK HELPER URINE DRUG SCREEN IMMUNOASSAY STAT 06/06/2024 2:35 PM GARBAGE TRUCK HELPER CULTURE URINE STAT 06/06/2024 2:35 PM GARBAGE TRUCK HELPER XR CHEST 1VW PORTABLE STAT 06/06/2024 2:31 PM GARBAGE TRUCK HELPER Unresponsive EKG 12-LEAD STAT 06/06/2024 2:16 PM GARBAGE TRUCK HELPER Unresponsive CT ANGIO BRAIN NECK STROKE STAT 06/06/2024 2:10 PM GARBAGE TRUCK HELPER Unresponsive CREATININE - POCT INTERFACED Routine 06/06/2024 2:01 PM GARBAGE TRUCK HELPER INR WHOLE BLOOD - POINT OF CARE (IP) STROKE Routine 06/06/2024 2:[address] BRAIN STROKE STAT 06/06/2024 1:58 PM GARBAGE TRUCK HELPER Unresponsive TYPE + SCREEN PANEL STAT 06/06/2024 1 :52 PM GARBAGE TRUCK HELPER ALCOHOL ETHYL BLOOD STAT 06/06/2024 1 :52 PM GARBAGE TRUCK HELPER BLOOD GASES RANDI + COOX PANEL STAT 06/06/2024 1:52 PM GARBAGE TRUCK HELPER TROPONIN-I HIGH SENSITIVE BASELINE + 1HR STAT 06/06/2024 1:52 PM GARBAGE TRUCK HELPER PT-INR [facility] STAT 06/06/2024 1:52 PM GARBAGE TRUCK HELPER COMPREHENSIVE METABOLIC PANEL STAT 06/06/2024 1:52 PM GARBAGE TRUCK HELPER CBC W AUTO DIFFERENTIAL STAT 06/06/2024 1:52 PM GARBAGE TRUCK HELPER GLUCOSE - POINT OF CARE Routine 06/06/2024 1:51 PM GARBAGE TRUCK HELPER from Last 3 Months Results * (ABNORMAL) CBC W AUTO DIFFERENTIAL (06/15/2024 4:30 AM CDT) Only the most recent of10 resultswithin the time period is included. WBC 5.0 4.0 - 10.7 x10E9/L 06/15/2024 5:05 AM [facility] RBC Count 3.75(L) 3.90 - 5.20 x10E12/L 06/15/2024 5:05 AM [facility] Hemoglobin 10.9(L) 11.9 - 15.8 g/dL 06/15/2024 5:05 AM [facility] Hematocrit 33.1(L) 34.8 - 46.1 % 06/15/2024 5:05 AM [facility] MCV 88.3 80.0 - 98.0 fL 06/15/2024 5:05 AM [facility] MCH 29.1 26.7 - 33.6 pg 06/15/2024 5:05 AM [facility] MCHC 32.9 31.7 - 36.3 g/dL 06/15/2024 5:05 AM [facility] RDW-CV 13.5 11.3 - 14.8 % 06/15/2024 5:05 AM [facility] Platelet Count 275 150 - 420 x10E9/L 06/15/2024 5:05 AM [facility] MPV 10.5 7.8 - 11.4 fL 06/15/2024 5:05 AM [facility] Neutrophil % 51.7 41.0 - 74.0 % 06/15/2024 5:05 AM [facility] Lymphocyte % 32.7 17.0 - 47.0 % 06/15/2024 5:05 AM [facility] Monocyte % 11.2(H) 3.0 - 11.0 % 06/15/2024 5:05 AM [facility] Eosinophil % 3.2 0.0 - 7.0 % 06/15/2024 5:05 AM [facility] Basophil % 1.0 0.0 - 1.6 % 06/15/2024 5:05 AM [facility] Immature Granulocytes % 0.2 0.0 - 1.0 % 06/15/2024 5:05 AM [facility] Neutrophil Absolute 2.58 1.60 - 7.50 x10E9/L 06/15/2024 5:05 AM [facility] Lymphocyte Absolute 1.63 1.00 - 4.40 x10E9/L 06/15/2024 5:05 AM [facility] Monocyte Absolute 0.56 0.15 - 1.00 x10E9/L 06/15/2024 5:05 AM [facility] Eosinophil Absolute 0.16 0.00 - 0.60 x10E9/L 06/15/2024 5:05 AM [facility] Basophil Absolute 0.05 0.00 - 0.13 x10E9/L 06/15/2024 5:05 AM [facility] Blood BLOOD SPECIMEN / Unknown Lab Venipuncture / Unknown 06/15/2024 4:30 AM CDT 06/15/2024 4:55 AM CDT Susan Amos MD LAB - HEMATOLOGY ORD ERABLES [facility] [address] [place] [address], [facility] [phone] * (ABNORMAL) BASIC METABOLIC PANEL (CALCIUM TOTAL) (06/15/2024 4:30 AM CDT) Only the most recent of9 resultswithin the time period is included. BUN 29(H) 7 - 26 mg/dL 06/15/2024 5:18 AM [facility] Creatinine 1.16(H) 0.56 - 0.96 mg/dL 06/15/2024 5:18 AM [facility] Sodium 140 136 - 145 mmol/L 06/15/2024 5:18 AM [facility] Potassium 4.0 3.5 - 4.5 mmol/L 06/15/2024 5:18 AM [facility] Chloride 111(H) 98 - 107 mmol/L 06/15/2024 5:18 AM [facility] CO2 19(L) 22 - 29 mmol/L 06/15/2024 5:18 AM [facility] Glucose 91 70 - 99 mg/dL 06/15/2024 5:18 AM [facility] Calcium 8.4 8.4 - 10.2 mg/dL 06/15/2024 5:18 AM [facility] Anion Gap 10 6 - 16 06/15/2024 5:18 AM [facility] BUN/Creatinine Ratio 25(H) 7 - 23 06/15/2024 5:18 AM [facility] Osmolality Calculated 295 275 - 295 mOsm/kg 06/15/2024 5:18 AM [facility] eGFR by CKD-EPI 47(L) >=90 mL/min/1.7 3 m2 06/15/2024 5:18 AM [facility] Blood BLOOD SPECIMEN / Unknown Lab Venipuncture / Unknown 06/15/2024 4:30 AM CDT 06/15/2024 4:51 AM CDT Susan Amos MD LAB - CHEMISTRY AGUEDA RAMIREZ [facility] Organization Address City/State/ZIP Co de Phone Number [facility] [address] [place] [phone], [facility] [phone] * PHOSPHORUS BLOOD (06/15/2024 4:30 AM CDT) Only the most recent of9 resultswithin the time period is included. Phosphorus 3.5 2.9 - 5.1 mg/dL 06/15/2024 5:18 AM CDT [facility] Blood BLOOD SPECIMEN / Unknown Lab Venipuncture / Unknown 06/15/2024 4:30 AM CDT 06/15/2024 4:51 AM CDT Susan Amos MD LAB - CHEMISTRY AGUEDA RAMIREZ [facility] [address] [place] [address], [place] [phone] * MAGNESIUM BLOOD (06/15/2024 4:30 AM CDT) Only the most recent of9 resultswithin the time period is included. Magnesium 1.9 1.6 - 2.6 mg/dL 06/15/2024 5:18 AM CDT [facility] Blood BLOOD SPECIMEN / Unknown Lab Venipuncture / Unknown 06/15/2024 4:30 AM CDT 06/15/2024 4:51 AM CDT Susan Amos MD LAB - CHEMISTRY AGUEDA RAMIREZ [facility] [address] [place] [phone], [place] [phone] * HEMOGLOBIN A1C (06/11/2024 4:52 AM CDT) Hemoglobin A1c 4.9 <=5.6 % 06/11/2024 11:57 AM CDT [facility] Estimated Average Glucose 94 mg/dL 06/11/2024 11:57 AM CDT [facility] Comment: HbA1c Interpretation: Normal : < 5.7% Pre-diabetes: 5.7-6.4% Diabetes: Equal to or greater than 6.5% Test results diagnostic of diabetes should be repeated for confirmation. Treatment target values recommended by ADA and other clinical organizations should be used to evaluate metabolic control in patients. Reference: [place] Diabetes Association, Standards of Care in Diabetes [...] Plascencia MD LAB - CHEMISTRY ORD ERABLES [address] [address], [place] [phone] * LIPID PROFILE (06/11/2024 4:52 AM CDT) [facility] Cholesterol Total 143 <200 mg/dL 06/11/2024 6:27 AM T [facility] HDL 64 >40 mg/dL 06/11/2024 6:27 AM CDT [facility] Comment: ATP III Classification of HDL Cholesterol: <40 mg/dL: Considered a major risk factor. >60 mg/dL: Considered a negative risk factor. LDL Calculated 62 <100 mg/dL 06/11/2024 6:27 AM T [facility] Comment: ATP III Classification of LDL Cholesterol: <100 mg/dL: Optimal 100 - 129 mg/dL: Near Optimal/Above Optimal 130 - 159 mg/dL: Borderline High 160 - 189 mg/dL: High >190 mg/dL: Very High Triglycerides 83 <150 mg/dL 06/11/2024 6:27 AM T [facility] Comment: ATP III Classification of Triglycerides: <150 mg/dL: Normal 150 - 199 mg/dL: Borderline High 200 - 400 mg/dL: High >500 mg/dL: Very High Blood BLOOD SPECIMEN / Unknown Lab Venipuncture / Unknown 06/11/2024 4:52 AM CDT 06/11/2024 5:58 AM CDT Joaquin Plascencia MD LAB - CHEMISTRY ORD ERABLES [address] [address], [place] [phone] * (ABNORMAL) GLUCOSE - POINT OF CARE (06/10/2024 10:23 AM CDT) Only the most recent of2 resultswithin the time period is included. Glucose WB/POC 104(H) 70 - 99 mg/dL 06/10/2024 10:24 AM CDT [facility] Specimen Type Cap Fingerstick 2024 10:24 AM CDT [facility] Blood BLOOD SPECIMEN / Unknown 06/10/2024 10:23 AM CDT 06/10/2024 10:24 AM CDT Eduardo Osborn MD LAB - POINT OF CARE ORDERABLES [address] [address], [facility] [phone] * CT Head Wo Contrast (06/08/2024 5:47 PM GARBAGE TRUCK HELPER) Anatomical Region Laterality Modality Head Computed Tomogra phy 06/08/2024 5:45 PM GARBAGE TRUCK HELPER Impressions 06/08/2024 8:22 PM GARBAGE TRUCK HELPER IMPRESSION: The study is limited due to [...] infarction. Report dictated by Ko Flores MD, (Waste Picker). I, Mike Sam MD have personally reviewed and interpreted this examination/study. > Interpreting Provider: Mike Sam MD on 06/08/2024 8:22 PM Narrative 06/08/2024 8:22 PM GARBAGE TRUCK HELPER PROCEDURE: CT HEAD WO CONTRAST, DATE/TIME OF EXAM: 06/08/2024 5:47 PM, LOCATION [facility] INDICATION: Z97.8: Endotracheally intubated EXAMINATION: Computed tomography [...] DATE/TIME OF EXAM: 06/08/2024 5:47 PM, LOCATION [facility] INDICATION: Z97.8: Endotracheally intubated EXAMINATION: Computed tomography [...] calcification of the carotid siphons and the [id number] of the vertebral arteries. No acute calvarial [...] infarction. Report dictated by Ko Flores MD, (Waste Picker). I, Mike Sam MD have personally reviewed and interpretedthis examination/study. > Interpreting Provider: Mike Sam MD on 06/08/2024 8:22 PM Joaquin Plascencia MD CT ORDERABLES * XR Chest 1Vw Portable (06/08/2024 4:50 PM GARBAGE TRUCK HELPER) Only the most recent of3 resultswithin the time period is included. Anatomical Region Laterality Modality Chest Digital Radiogra phy 06/09/2024 1:18 PM GARBAGE TRUCK HELPER Narrative 06/09/2024 2:40 PM GARBAGE TRUCK HELPER PROCEDURE: XR CHEST 1VW PORTABLE, DATE/TIME OF EXAM: 06/08/2024 4:50 PM, LOCATION [facility] INDICATION: R41.82: Altered mental status, unspecified altered [...] Report dictated by Argenis Kumar Dr, MD (residential mental health worker). Gael Toscano MD have personally reviewed and interpreted this examination/study. > Interpreting Provider: Gael Perdomo MD on 06/09/2024 2:40 PM Procedure Note Gael Perdomo MD - 06/09/2024 PROCEDURE: XR CHEST 1VW PORTABLE, DATE/TIME OF EXAM: 06/08/2024 4:50 PM, LOCATION [facility] INDICATION: R41.82: Altered mental status, unspecified altered [...] Report dictated by Argenis Kumar Dr, MD (residential mental health worker). Gael Toscano MD have personally reviewed and interpreted this examination/study. > Interpreting Provider: Gael Perdomo MD on 06/09/2024 2:40 PM Joaquin Plascencia MD DIAGNOSTIC IMAGING ORDERABLES * MRSA DNA PCR (06/08/2024 4:43 PM GARBAGE TRUCK HELPER) Pathologist [facility] MRSA DNA by PCR Not detected Not detected 06/08/2024 8:58 PM GARBAGE TRUCK HELPER [facility] MICROBIOLOGY Microbiology SPECIMEN FROM NASAL FOSSAE / Unknown Collection / Unknown 06/08/2024 4:43 PM GARBAGE TRUCK HELPER 06/08/2024 4:48 PM GARBAGE TRUCK HELPER Narrative [facility] MICRO[facility]OLOG[facility] - 06/08/2024 8:58 PM GARBAGE TRUCK HELPER Methicillin-resistant Staphylococcus aureus (MRSA) DNA is not detected (presumed not colonized with MRSA). Joaquin Plascencia MD LAB - MICROBIOLOGY ORDERABLES [facility] MICROBIOLOGY [address] [place] [address], [facility] [phone] * (ABNORMAL) HEPATIC FUNCTION PANEL (06/08/2024 8:28 AM GARBAGE TRUCK HELPER) [facility] Protein Total 5.7(L) 6.0 - 8.3 g/dL 025 9:04 AM [facility] Albumin 3.0(L) 3.4 - 5.0 g/dL 06/08/2024 9:04 AM [facility] Bilirubin Total 0.3 0.2 - 1.2 mg/dL 10/2024 9:04 AM [facility] Bilirubin Conjugated 0.2 0.1 - 0.5 mg/dL 06/08/2024 9:04 AM [facility] Bilirubin Unconjugated 0.1 Unconjugated Bilirubin is a calculated value: Reference ranges have not been established. mg/dL 06/08/2024 9:04 AM [facility] Alkaline Phosphatase 133 40 - 150 U/L 06/08/2024 9:04 AM [facility] ALT 185(H) 5 - 55 U/L 06/08/2024 9:04 AM [facility] AST 76(H) 5 - 34 U/L 06/08/2024 9:04 AM [facility] Albumin/Globulin Ratio 1.1 1.1 - 2.3 06/08/2024 9:04 AM [facility] Blood BLOOD SPECIMEN / Unknown Venipuncture / Unknown 06/08/2024 8:28 AM GARBAGE TRUCK HELPER 06/08/2024 8:34 AM [facility] Joa[facility] Plascencia MD LAB - CHEMISTRY ORD ERABLES [facility] [address] [place] [address], [place] [phone] * (ABNORMAL) BLOOD GASES RANDI + COOX PANEL (06/07/2024 6:32 AM GARBAGE TRUCK HELPER) Only the most recent of3 resultswithin the time period is included. [facility] pH Venous 7.40 7.32 - 7.42 pH 06/07/2024 6:46 AM [facility] pO2 Venous 52(H) 35 - 40 mmHg 06/07/2024 6:46 AM [facility] pCO2 Venous 35(L) 40 - 50 mmHg 06/07/2024 6:46 AM [facility] HCO3 Venous 21.7 20 - 30 mmol/L 06/07/2024 6:46 AM [facility] Base Excess Venous -2.7(L) -2.0 - 2.0 mmol/L 06/07/2024 6:46 AM [facility] Oxyhemoglobin Venous 85.3 % 09/2024 6:46 AM [facility] Deoxyhemoglobin (HHB) Venous % 13.6 % 06/07/2024 6:46 AM [facility] Methemoglobin <0.8 0.0 - 2.0 % 06/07/2024 6:46 AM [facility] Carboxyhemoglobin 0.6 0.0 - 2.0 % 2024 6:46 AM [facility] O2 Content Venous 11.9 Interpret within clinical context ml/dL 06/07/2024 6:46 AM [facility] Hemoglobin by COOX 9.9(L) 12.0 - 15.6 g/dL 06/07/2024 6:46 AM [facility] O2 Saturation Venous 86 >=70 % 09/2024 6:46 AM [facility] FI O2 Mixed Venous 40.0 % 2024 6:46 AM [facility] Blood BLOOD SPECIMEN / Unknown Venipuncture / Unknown 06/07/2024 6:32 AM GARBAGE TRUCK HELPER 06/07/2024 6:36 AM [facility] - 06/07/2024 6:46 AM [facility] Carboxyhemoglobin Normal Concentration: Non-smokers: 0-2%; Smokers: 0-9%; Toxic: >20% Joaquin Plascencia MD LAB - BLOOD GASES O RDERABLES [facility] [address] [place] [address], [facility] [phone] * (ABNORMAL) BLOOD GASES ART + COOX PANEL (06/07/2024 3:12 AM [facility]) Only the most recent of2 resultswithin the time period is included. pH Arterial 7.50(H) 7.35 - 7.45 pH 06/07/2024 3:24 AM [facility] pO2 Arterial 166(H) 80 - 100 mmHg 06/07/2024 3:24 AM [facility] pCO2 Arterial 27(L) 35 - 45 mmHg 3:24 AM [facility] HCO3 Arterial 21.1 20.0 - 30.0 mmol/L 06/07/2024 3:24 AM [facility] BE Arterial -1.3 -2.0 - 2.0 mmol/L 06/07/2024 3:24 AM [facility] Oxyhemoglobin Arterial 97.8 % 06/07/2024 3:24 AM [facility] Dexoyhemoglobin (HHB) % 1.6 % 06/07/2024 3:24 AM [facility] Methemoglobin <0.8 0.0 - 2.0 % 06/07/2024 3:24 AM [facility] Carboxyhemoglobin <0.4 0.0 - 2.0 % 2024 3:24 AM [facility] O2 Content Arterial 14.1 Interpret within clinical context ml/dL 06/07/2024 3:24 AM [facility] Hemoglobin by COOX 10.0(L) 12.0 - 15.6 g/dL 06/07/2024 3:24 AM [facility] O2 Saturation Arterial 98 90 - 100 % 06/07/2024 3:24 AM [facility] FI O2 Arterial 50.0 % 06/07/2024 3:24 AM [facility] Blood, arterial ARTERIAL BLOOD SPECIMEN / Unknown Arterial Puncture / Unknown 06/07/2024 3:12 AM G[employer]BAGE TRUCK HELPER 06/07/2024 3:16 AM [facility] - 06/07/2024 3:24 AM [facility] Carboxyhemoglobin Normal Concentration: Non-smokers: 0-2%; Smokers: 0-9%; Toxic: >20% Joaquin Plascencia MD LAB - BLOOD GASES O RDERABLES Performing Organization Address [facility]/ZIP Co de Phone Number [address] [address], [facility] [phone] * (ABNORMAL) TRIGLYCERIDES BLOOD (06/06/2024 11:49 PM GARBAGE TRUCK HELPER) Triglycerides 460(H) <150 mg/dL 06/07/2024 12:30 AM GARBAGE TRUCK HELPER [facility] Comment: ATP III Classification of Triglycerides: <150 mg/dL: Normal 150 - 199 mg/dL: Borderline High 200 - 400 mg/dL: High >500 mg/dL: Very High Blood BLOOD SPECIMEN / Unknown Venipuncture / Unknown 06/06/2024 11:49 PM GARBAGE TRUCK HELPER 06/07/2024 12:06 AM GARBAGE TRUCK HELPER Joaquin Plascencia MD LAB - CHEMISTRY ORD ERABLES Performing Organization Address [facility] Co de Phone Number [address] [address], [facility] [phone] * XR Abdomen Kub Portable (06/06/2024 6:55 PM GARBAGE TRUCK HELPER) Anatomical Region Laterality Modality Abdomen Digital Radiogra phy 06/07/2024 9:01 AM GARBAGE TRUCK HELPER Narrative 06/07/2024 9:10 AM GARBAGE TRUCK HELPER PROCEDURE: XR ABDOMEN KUB PORTABLE, DATE/TIME OF EXAM: 06/06/2024 6:55 PM, LOCATION [facility] INDICATION: Z97.8: Endotracheally intubated ADDITIONAL CLINICAL INFORMATION: Ordering Provider Reason For Exam: OG tube placement Technologist Note: Additional: COMPARISON: None. TECHNIQUE: Supine frontal radiograph of the abdomen. FINDINGS/ IMPRESSION: Enteric tube with side port in the gastric body, tip is not visualized. > Dictated by Teressa Marcano MD, (residential mental health worker). I, Arun Lee MD have personally reviewed and interpreted this examination/study. > Interpreting Provider: Arun Lee MD on 06/07/2024 9:10 AM Procedure Note Arun Lee MD - 06/07/2024 PROCEDURE: XR ABDOMEN KUB PORTABLE, DATE/TIME OF EXAM: 06/06/2024 6:55PM, LOCATION [facility] INDICATION: Z97.8: Endotracheally intubated ADDITIONAL CLINICAL INFORMATION: Ordering Provider Reason For Exam: OG tube placement Technologist Note: Additional: COMPARISON: None. TECHNIQUE: Supine frontal radiograph of the abdomen. FINDINGS/ IMPRESSION: Enteric tube with side port in the gastric body, tip is not visualized. > Dictated by Teressa Marcano MD, (residential mental health worker). I, Arun Lee MD have personally reviewed and interpreted this examination/study. > Interpreting Provider: Arun Lee MD on 06/07/2024 9:10 AM Joaquin Plascencia MD DIAGNOSTIC IMAGING ORDERABLES * CK BLOOD (06/06/2024 3:06 PM [employer]) Pathologist [facility] CK Total 65 30 - 200 U/L 06/06/2024 3:43 PM [facility] Blood BLOOD SPECIMEN / Unknown Venipuncture / Unknown 06/06/2024 3:06 PM [employer] 06/06/2024 3:13 PM [employer] Joaquin Plascencia MD LAB - CHEMISTRY ORD ERABLES [facility] [address] [place] [id number], [facility] [phone] * ALCOHOL ETHYL BLOOD (06/06/2024 3:06 PM [employer]) Only the most recent of2 resultswithin the time period is included. Ethanol (mg/dL) <10 <10 mg/dL 3:43 PM [facility] Ethanol Calculated (g/dL) <0.010 <=0.010 g/dL 06/06/2024 3:43 PM [facility] Blood BLOOD SPECIMEN / Unknown Venipuncture / Unknown 06/06/2024 3:06 PM [facility] [employer] [facility] 06/06/2024 3:13 PM [employer] Narrative [facility] - 06/06/2024 3:43 PM [employer] Ethanol Interp <10: None Detected. 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 Adverse effects may include dizziness, fatigue, nausea, headache, somnolence, ataxia, and tremor. Performed By: [facility] [address] [place] [address] Software Implementation Specialist: Bola Sandoval MD, PhD CLIA Number: [id number] Blood BLOOD SPECIMEN / Unknown Venipuncture / Unknown 06/06/2024 2:38 PM [employer] 06/06/2024 2:43 PM [employer] HEL[employer] Cornelio Mandujano MD LAB - CHEMISTRY OR DERABLES Performing Organization Address [facility]/ZIP Co de Phone Number [facility] Jobaline [facility]) [address] [place] [address] * (ABNORMAL) TROPONIN-I HIGH SENSITIVE REFLEX 1HOUR (06/06/2024 2:35 PM [employer] TR[employer] HEL[employer]) Pathologist [facility] Troponin I High Sensitive 19(H) <=14 ng/L 06/06/2024 3:23 PM [employer] TR[employer] HELPER [facility] Delta Troponin I HS 06/06/2024 3:23 PM [facility] Comment:Delta value intentio garcia not calculated. Baseline to 1 hour specimen collection interval exceeded. Blood BLOOD SPECIMEN / Unknown Venipuncture / Unknown 06/06/2024 2:35 PM [employer] TRUCK HELPER 06/06/2024 2:49 PM [employer] TR[employer] HELPER Cornelio Mandujano MD LAB - CHEMISTRY OR DERABLES Performing Organization Address [facility] Co de Phone Number [address] [address], [facility] [phone] * (ABNORMAL) URINALYSIS REFLEX MICROSCOPIC REFLEX CULTURE (06/06/2024 2:35 PM [employer]) Color UA Yellow Yellow, Straw 06/06/2024 2:58 PM [facility] Clarity UA Clear Clear 06/06/2024 2:58 PM [facility] Glucose UA Trace(A) Normal 06/06/2024 2:58 PM [facility] Bilirubin UA Negative Negative 06/06/2024 2:58 PM [facility] Ketone UA Negative Negative 06/06/2024 2:58 PM [facility] Specific [place] UA 1.043(H) 1.005 - 1.030 06/06/2024 2:58 PM [facility] Blood UA 1+(A) Negative 06/06/2024 2:58 PM [facility] pH UA 6.5 5.0 - 9.0 pH 06/06/2024 2:58 PM [facility] Protein UA 2+(A) Negative 06/06/2024 2:58 PM [facility] Urobilinogen UA Normal Normal mg/dL 06/06/2024 2:58 PM [facility] Nitrite UA Positive(A) Negative 06/06/2024 2:58 PM [facility] Leukocyte UA 75 ISIDRO/uL(A) Negative 06/06/2024 2:58 PM [facility] RBC UA 11-20(A) 0 - 5 # /hpf 06/06/2024 2:58 PM [facility] WBC UA 51-100(A) 0 - 5 # /hpf 06/06/2024 2:58 PM [employer]BAGE TRUCK HELPER [facility] Bacteria UA 1+(A) None Seen 06/06/2024 2:58 PM [employer] TR[employer] HELPER [facility] Squamous Epithelial Cells 0-2 0 - 5 /hpf 06/06/2024 2:58 PM [employer] TR[employer] HELPER [facility] Transitional Epithelial Cell UA 0-2(A) None Seen /HPF 06/06/2024 2:58 PM [employer]BAGE TRUCK HELPER [facility] Mucus UA 1+ /LPF 06/06/2024 2:58 PM GARBAGE TRUCK HELPER [facility] Urine URINE SPECIMEN OBTAINED VIA [employer] URINARY CATHETER / Unknown Collection / Unknown 06/06/2024 2:35 PM [employer] TRUCK HELPER 06/06/2024 2:43 PM [employer] TRUCK HELPER Narrative [facility] - 06/06/2024 2:58 PM [employer] TR[employer] HELPER Cornelio Mandujano MD LAB - URINALYSIS O RDERABLES [facility] [address] [place] [phone], [facility] [phone] * (ABNORMAL) LEVETIRACETAM LEVEL (06/06/2024 2:35 PM G[employer]BAGE TRUCK HELPER) Levetiracetam <2(L) 10 - 40 ug/mL 06/08/2024 9:58 AM G[employer]BAGE TR[employer] HELPER [employer] ([facility]) Comment: INTERPRETIVE INFORMATION: Keppra (Levetiracetam) Therapeutic Range: 10-40 ug/mL Toxic: Not well Established Pharmacokinetics of levetiracetam are affected by renal function. Adverse effects may include somnolence, weakness, headache and vomiting. This levetiracetam (Keppra) immunoassay uses the [employer] reagents, which has known cross-reactivity with the drug brivaracetam (Briviact) and may report inaccurate results. Patients transitioning from levetiracetam to brivaracetam or those who are using both medications should not monitor drug concentrations with the [employer] assay. These patients should be monitored using a validated chromatographic methodology that distinguishes between drugs to determine drug concentrations. Performed By: [facility] [address] [place] [address] Software Implementation Specialist: Bola Sandoval MD, PhD CLIA Number: [id number] Blood BLOOD SPECIMEN / Unknown Venipuncture / Unknown 06/06/2024 2:35 PM [employer] HEL[employer] 06/06/2024 2:43 PM [employer] HELPER Cornelio Mandujano MD LAB - THERAPEUTIC DRUG MONITORING ORDERABLES [facility]) [address] [place], [place] [id number] [place] [address] * CULTURE URINE (06/06/2024 2:35 PM G[employer]BAGE TR[employer] HELPER) Culture Urine More than 2 organisms seen at >=50,000 CFU/mL. Recollect if clinically indicated. CONNIE 06/08/2024 7:37 AM GARBAGE TRUCK HELPER [facility] MICROBIOLOG[facility] Urine URINE SPECIMEN OBTAINED VIA [employer] URINARY CATHETER / Unknown Collection / Unknown 06/06/2024 2:35 PM [employer]BAGE TRUCK HELPER 06/06/2024 2:43 PM [employer]BAGE TRUCK HELPER Cornelio Mandujano MD LAB - MICROBIOLOGY ORDERABLES [facility] [address] [place], [address] [phone] * (ABNORMAL) URINE DRUG SCREEN IMMUNOASSAY (06/06/2024 2:35 PM GARBAGE TRUCK HELPER) Pathologist [facility] Amphetamines Screen Urine Negative Negative : < 1000 ng/mL 06/06/2024 3:12 PM [facility] Barbiturates Screen Urine Negative Negative : < 200 ng/mL 06/06/2024 3:12 PM [facility] Benzodiazepine Screen Urine Positive(A) Negative : < 200 ng/mL 06/06/2024 3:12 PM [facility] Comment: Positive urine benzodiazepine screening results should be confirmed by another generally accepted non-immunological method such as gas chromatography or mass spectrometry. Opiates Urine Negative Negative : < 300 ng/mL 06/06/2024 3:12 PM [facility] Cocaine Metabolites Urine Negative Negative : < 300 ng/mL 06/06/2024 3:12 PM [facility] Phencyclidine Screen Urine Negative Negative : < 25 ng/ml 06/06/2024 3:12 PM [facility] Cannabinoids Screen Urine Negative Negative : <50 ng/mL 06/06/2024 3:12 PM [facility] Methadone Screen Urine Negative Negative : < 300 ng/mL 06/06/2024 3:12 PM [facility] Fentanyl Screen Urine Negative Negative : <1.5 ng/mL 06/06/2024 3:12 PM [facility] Urine URINE / Unknown Collection / Unknown 06/06/2024 2:35 PM [employer] TR[employer] HEL[employer] 06/06/2024 2:43 PM GARBAGE TRUCK HELPER [facility] - 06/06/2024 3:12 PM GARBAGE TRUCK HELPER The Urine Toxicology Screening Panel does not screen for Propoxyphene, Meprobamate, Carisoprodol, Trazodone, oaws-vka-xijmdxm medications and/or volatiles (Acetone, Isopropanol, Methanol or Ethylene Glycol). Ethanol, Salicylate, Acetaminophen, Tricyclic Antidepressants and several therapeutic drugs may be individually assayed in serum or plasma specimen. Toxicology testing by the [facility] is an aid to medical diagnosis and treatment of patients. No documented chain of custody was maintained. Results are intended to be used for clinical purposes only. Cornelio Mandujano MD LAB - URINE CHEMIS TRY ORDERABLES [facility] [address] [place] [phone], [facility] [phone] * EKG 12-LEAD (06/06/2024 2:16 PM GARBAGE TRUCK HELPER) Ventricular Rate 66 BPM [facility] Atrial Rate 66 BPM [facility] P-R Interval 178 ms [facility] QRS Duration ms 86 ms [facility] Q-T Interval ms 428 ms [facility] QTC Calculation (Bezet) 448 ms [facility] Calculated P [place] 74 degrees [facility] Calculated R [place] 72 degrees [facility] Calculated T [place] -135 degrees [facility] Interpretation EKG NORMAL SINUS RHYTHM ST & T WAVE ABNORMALITY, CONSIDER INFEROLATERAL ISCHEMIA ABNORMAL ECG WHEN COMPARED WITH ECG OF 17-FEB-2022 22:52, T WAVE INVERSION NOW EVIDENT IN INFERIOR LEADS T WAVE INVERSION MORE EVIDENT IN LATERAL LEADS Confirmed by MD STEPHANIE, ROLANDA ([id number]) on 06/07/2024 9:18:02 AM [facility] 06/06/2024 2:16 PM G[employer]BAGE TRUCK HELPER 06/07/2024 9:18 AM GARBAGE TRUCK HELPER Cornelio Mandujano MD ECG ORDERABLES [facility] * CT ANGIO BRAIN NECK STROKE (06/06/2024 2:10 PM GARBAGE TRUCK HELPER) Anatomical Region Laterality Modality Head Computed Tomogra phy 06/06/2024 3:04 PM G[employer]BAGE TRUCK HELPER Impressions 06/06/2024 3:19 PM [employer]BAGE TRUCK HELPER IMPRESSION: 1. No large arterial occlusions, significant stenoses identified in the head or neck. 3. Enlarged pulmonary artery may represent underlying chronic pulmonary hypertension. The report is dictated by Kyle Ruiz MD, (residential mental health worker) IGael MD have personally reviewed and interpreted this examination/study. > Interpreting Provider: Gael Perdomo MD on 06/06/2024 3:19 PM Narrative 06/06/2024 3:19 PM [employer]BAGE TR[employer] HELPER PROCEDURE: CT ANGIO BRAIN NECK STROKE, DATE/TIME OF EXAM: 06/06/2024 2:11 PM, LOCATION [facility] INDICATION: Code Stroke ADDITIONAL CLINICAL INFORMATION: Ordering [...] STROKE, DATE/TIME OF EXAM: :11 PM, LOCATION [facility] INDICATION: Code Stroke ADDITIONAL CLINICAL INFORMATION: Ordering [...] report is dictated by Kyle Ruiz MD, (residential mental health worker) I, Gael Perdomo MD have personally reviewed and interpreted this examination/study. > Interpreting Provider: Gael Perdomo MD on 06/06/2024 3:19 PM Cornelio Mandujano MD CT ORDERABLES * INR WHOLE BLOOD - POINT OF CARE (IP) STROKE (06/06/2024 2:01 PM G[employer]BAGE TR[employer] HELPER) INR 1.2 0.9 - 1.2 06/06/2024 2:04 PM [facility] Device [id number] 06/06/2024 2:04 PM [facility] Continuous Process Coffee Roaster ID [id number] 06/06/2024 2:04 PM [facility] Blood BLOOD SPECIMEN / Unknown 06/06/2024 2:01 PM [employer] HELPER 06/06/2024 2:04 PM [employer]BAGE TRUCK HELPER Cornelio Mandujano MD LAB - POINT OF CAR E ORDERABLES Performing Organization Address City/[facility] Co de Phone Number [facility] [address] [place] [phone], [facility] [phone] * (ABNORMAL) CREATININE - POCT INTERFACED (06/06/2024 2:01 PM GARBAGE TRUCK HELPER) Creatinine POCT 1.05 0.30 - 1.30 mg/dL 06/06/2024 2:04 PM [facility] eGFR 53(L) >=90 mL/min/1.7 3 m2 06/06/2024 2:04 PM [facility] Blood BLOOD SPECIMEN / Unknown 06/06/2024 2:01 PM [employer] TRUCK HELPER 06/06/2024 2:04 PM [employer]AGE TRUCK HELPER Cornelio Mandujano MD LAB - POINT OF CAR E ORDERABLES [facility] [address] [place] [address], [facility] [phone] * CT BRAIN - Stroke (06/06/2024 1:58 PM GARBAGE TRUCK HELPER) Anatomical Region Laterality Modality Head Computed Tomogra phy 06/06/2024 2:05 PM [employer]AGE TR[employer] HELPER Impressions 06/06/2024 2:10 PM GARBAGE TRUCK HELPER IMPRESSION: 1. No acute intracranial hemorrhage. 2. [...] 06/06/2024 2:10 PM Narrative 06/06/2024 2:10 PM [employer]BAGE TRUCK HELPER PROCEDURE: CT BRAIN STROKE, DATE/TIME OF EXAM: 06/06/2024 2:01 PM, LOCATION [facility] INDICATION: Code Stroke ADDITIONAL CLINICAL INFORMATION: Ordering [...] STROKE, DATE/TIME OF EXAM: 06/06/2024 2:01 PM,LOCATION [facility] INDICATION: Code Stroke ADDITIONAL CLINICAL INFORMATION: Ordering [...] Mandujano MD CT ORDERABLES * (ABNORMAL) PT-INR [facility] (06/06/2024 1:52 PM GARBAGE TRUCK HELPER) PT 15.5(H) 12.1 - 14.8 Seconds 06/06/2024 2:26 PM GARBAGE TRUCK HELPER [facility] INR 1.3 See Comment 06/06/2024 2:26 PM GARBAGE TRUCK HELPER [facility] Comment:The suggested therap eutic range for standard coumadin (warfarin) therapy is an INR of 2.0-3.0. For high-risk patients (Mechanical Mitral Valve Prosthesis, etc.), the suggested prophylactic therapeutic range is an INR of 2.5-3.5. Blood BLOOD SPECIMEN / Unknown Venipuncture / Unknown 06/06/2024 1:52 PM GARBAGE TRUCK HELPER 06/06/2024 1:59 PM GARBAGE TRUCK HELPER Cornelio Mandujano MD LAB - COAGULATION ORDERABLES Performing Organization Address [facility]/ZIP Co de Phone Number [address] [phone], [employer] [phone] * (ABNORMAL) TROPONIN-I HIGH SENSITIVE BASELINE + 1HR (06/06/2024 1:52 PM GARBAGE TRUCK HELPER) Pathologist [facility] Troponin I High Sensitive 20(H) <=14 ng/L 06/06/2024 2:29 PM GARBAGE TRUCK HELPER [facility] Blood BLOOD SPECIMEN / Unknown Venipuncture / Unknown 06/06/2024 1:52 PM GARBAGE TRUCK HELPER 06/06/2024 1:59 PM G[employer]BAGE TRUCK HELPER Cornelio Mandujano MD LAB - CHEMISTRY OR DERABLES Performing Organization Address [facility] Co de Phone Number [address] [phone], [place] [phone] * TYPE + SCREEN PANEL (06/06/2024 1:52 PM GARBAGE TRUCK HELPER) [facility] Antibody Screen NEG 2:46 PM GARBAGE TRUCK HELPER [facility] ABO Rh A POS 06/06/2024 2:46 PM GARBAGE TRUCK HELPER [facility] Blood Bank BLOOD SPECIMEN / Unknown Venipuncture / Unknown 06/06/2024 1:52 PM GARBAGE TRUCK HELPER 06/06/2024 2:05 PM GARBAGE TRUCK HELPER Cornelio Mandujano MD LAB - BLOOD BANK O RDERABLES Performing Organization Address [facility]/ZIP Co de Phone Number [facility] [address] [place] [phone], [place] [phone] * (ABNORMAL) COMPREHENSIVE METABOLIC PANEL (06/06/2024 1:52 PM GARBAGE TRUCK HELPER) Pathologist [facility] BUN 17 7 - 26 mg/dL 06/06/2024 2:25 PM [facility] Creatinine 1.17(H) 0.56 - 0.96 mg/dL 06/06/2024 2:25 PM [facility] Sodium 138 136 - 145 mmol/L 06/06/2024 2:25 PM [facility] Potassium 4.6(H) 3.5 - 4.5 mmol/L 06/06/2024 2:25 PM [facility] Chloride 105 98 - 107 mmol/L 06/06/2024 2:25 PM [facility] CO2 17(L) 22 - 29 mmol/L 06/06/2024 2:25 PM [facility] Glucose 212(H) 70 - 99 mg/dL 06/06/2024 2:25 PM [facility] Calcium 8.0(L) 8.4 - 10.2 mg/dL 06/06/2024 2:25 PM [facility] Protein Total 6.3 6.0 - 8.3 g/dL 06/06/2024 2:25 PM [facility] Albumin 3.5 3.4 - 5.0 g/dL 06/06/2024 2:25 PM [facility] Bilirubin Total 0.4 0.2 - 1.2 mg/dL 06/06/2024 2:25 PM [facility] Alkaline Phosphatase 153(H) 40 - 150 U/L 06/06/2024 2:25 PM [facility] ALT 201(H) 5 - 55 U/L 06/06/2024 2:25 PM [facility] AST 316(H) 5 - 34 U/L 06/06/2024 2:25 PM [facility] Anion Gap 16 6 - 16 06/06/2024 2:25 PM [facility] BUN/Creatinine Ratio 15 7 - 23 06/06/2024 2:25 PM [facility] Osmolality Calculated 294 275 - 295 mOsm/kg 06/06/2024 2:25 PM [facility] Albumin/Globulin Ratio 1.3 1.1 - 2.3 06/06/2024 2:25 PM [facility] eGFR by CKD-EPI 47(L) >=90 mL/min/1.7 3 m2 06/06/2024 2:25 PM GARBAGE TRUCK HELPER [facility] Blood BLOOD SPECIMEN / Unknown Venipuncture / Unknown 06/06/2024 1:52 PM GARBAGE TRUCK HELPER 06/06/2024 1:59 PM GARBAGE TRUCK HELPER Cornelio Mandujano MD LAB - CHEMISTRY OR DERABLES [facility] [address] [place] [address], [facility] [phone] from Last 3 Months Advance Directives Documents on File Type Date Recorded Patient Universal Grinder Operator Expl anation Adv Directive/Living Will/POA 10/13/2021 12:34 [...] orders without asking attending physician. Care Teams Wedding Cake Designer Relationship Specialty Start Date End Date Fernando Caputo MD [address] [place] [phone] PCP - General Internal Medicine 05/30/24 Maria Del Carmen Gil MD [address] [place] [address] 07/24/20 Maria Del Carmen Gil MD [address] [place] [id number] Gastroenterology 07/22/20 Maria Del Carmen Gil MD [address] [place] [id number] 07/15/20
--- OUTSIDE RECORDS SUMMARY | 2024-07-13 11:39 | XMS_ITS | Clinical Summary ---
Author Organization Unknown Care Team Providers Care Cocoa Bean Cleaner Name Role Phone MARIELENA ORO, TAZ Unavailable Unavailable VALENTIN RN, TADEO Unavailable Unavailtimothy WILLIAM LPN, PAMELA Unavailable Unavailable SHELLEY PT, VERN Unavailable Unavailable TYLER SECURITY DISPATCHER, TERESITA Unavailable Unavailable JANICE OT, YOGI Unavailable Unavailable Payers Payer Name Policy Type Policy Number Effective Date Expira tion Date [facility] [id number] Problems Condition Name Condition Details Condition Category Status Onset Date Resolution Date Last Treatment Date Treating Clinician Comments OTHER SEQUELAE OF CEREBRAL INFARCTION Active 06-06 00:00: 00 EPILEPSY, UNSP, NOT INTRACTABLE, WITHOUT STATUS EPILEPTICUS Active 06-06 00:00: 00 OTHER ENCEPHALOPAT HY Active 06-06 00:00: 00 NEUROMUSCULA R DYSFUNCTION OF BLADDER, UNSPECIFIED Active 06-06 00:00: 00 ACUTE RESPIRATORY FAILURE WITH HYPOXIA Active 06-06 00:00: 00 HYPERTENSIVE HEART DISEASE WITH HEART FAILURE Active 04-04 00:00: 00 CHRONIC DIASTOLIC (CONGESTIVE) HEART FAILURE Active 04-04 00:00: 00 IRON DEFICIENCY ANEMIA, UNSPECIFIED Active 06-06 00:00: 00 ANXIETY DISORDER, UNSPECIFIED Active 06-06 00:00: 00 DEPRESSION, UNSPECIFIED Active 04-04 00:00: 00 PEPTIC ULC, SITE UNSP, UNSP AC OR CHR, W/O HEMOR OR PERF Active 04-04 00:00: 00 APHASIA Active 06-06 00:00: 00 DYSPHAGIA, UNSPECIFIED Active 06-06 00:00: 00 INTESTINAL BYPASS AND ANASTOMOSIS STATUS Active 04-04 00:00: 00 ENCOUNTER FOR ATTENTION TO CYSTOSTOMY Active 06-12 00:00: 00 ENCOUNTER FOR FITTING AND ADJUSTMENT OF URINARY DEVICE Active 06-12 00:00: 00 ALF (CURRENT) USE OF ASPIRIN Active 06-21 00:00: 00 GYPSUM BLOCK SETTER (CURRENT) USE OF ANTITHROMBOT ICS/ANTIPLAT ELETS Active 06-21 00:00: 00 Allergies, Adverse Reactions, Alerts Allergy Name Allergy Type Status Severity Reaction(s) Onset Date Inactive Date Treating Clinician Comments NO KNOWN ALLERGIES Propensity to adverse reactions Active 06-21 14:00: 02 Medications Ordered Medication Name Filled Medication Name Start Date Stop Date Current Medication? Ordering Clinician Indication Dosage Frequency Signature (SIG) Comments Components citalopram 20 mg tablet 06-09 00:00: 00 Yes [id number] DEPRESSION 1 tablet DAILY 1 tablet DAILY (route: oral) Med Classific ation: Central Nervous System Agents cephalexin 250 mg capsule 05-26 00:00: 00 Yes [id number] PROPHYLACTI C 1 capsule BEDTIME 1 capsule BEDTIME (route: oral) Med Classific ation: Anti-Infe ctive Agents misoprostol 200 mcg tablet 05-26 00:00: 00 Yes [id number] ULCER PREVENTION 1 tablet EVERY DAY 1 tablet EVERY DAY (route: oral) Med Classific ation: Gastroint estinal Therapy Agents pyridoxine (vitamin B6) 100 mg tablet 05-26 00:00: 00 Yes [id number] SUPPLEMENT 1 tablet DAILY 1 tablet DAILY (route: oral) Med Classific ation: Electroly te Balance-N utritiona l Products carvedilol 12.5 mg tablet 05-24 00:00: 00 Yes [id number] HIGH BLOOD PRESSURE 1 tablet 2 TIMES DAILY 1 tablet 2 TIMES DAILY (route: oral) Med Classific ation: Cardiovas cular Therapy Agents sucralfate 100 mg/mL oral suspension 15 00:00: 00 Yes [id number] PREVENT ULCER 10 mL BEFORE MEALS AND BEDTIME 10 mL BEFORE MEALS AND BEDTIME (route: oral) Med Classific ation: Gastroint estinal Therapy Agents acetaminoph en 325 mg tablet 06-21 00:00: 00 Yes [id number] NEEDED FOR MILD PAIN 2 tablet EVERY 4 HOURS 2 tablet EVERY 4 HOURS (route: oral) Med Classific ation: Analgesic , Anti-infl ammatory or Antipyret ic Aspirin Childrens 81 mg chewable tablet 06-21 00:00: 00 Yes [id number] BLOOD THINNER 1 tablet DAILY 1 tablet DAILY (route: oral) Med Classific ation: Hematolog ical Agents atorvastati n 80 mg tablet 06-21 00:00: 00 Yes [id number] CHOLESTEROL 1 tablet BEDTIME 1 tablet BEDTIME (route: oral) Med Classific ation: Cardiovas cular Therapy Agents buspirone 15 mg tablet 06-21 00:00: 00 Yes [id number] ANXIETY 1 tablet 3 TIMES DAILY 1 tablet 3 TIMES DAILY (route: oral) Med Classific ation: Central Nervous System Agents calcium 200 mg (as calcium citrate 950 mg) tablet 06-21 00:00: 00 Yes [id number] SUPPLEMENT 1 tablet DAILY 1 tablet DAILY (route: oral) Med Classific ation: Electroly te Balance-N utritiona l Products clopidogrel 75 mg tablet 06-21 00:00: 00 Yes [id number] BLOOD THINNER 1 tablet DAILY 1 tablet DAILY (route: oral) Med Classific ation: Hematolog ical Agents cyanocobala min (vit B-12) 1,000 mcg tablet 06-21 00:00: 00 Yes [id number] SUPPLEMENT 1 tablet DAILY 1 tablet DAILY (route: oral) Med Classific ation: Electroly te Balance-N utritiona l Products cyclobenzap rine 10 mg tablet 06-21 00:00: 00 Yes [id number] NEEDED FOR MUSCLE SPASMS 1 tablet 3 TIMES DAILY 1 tablet 3 TIMES DAILY (route: oral) Med Classific ation: Locomotor System Effer-K 25 mEq effervescen t tablet 06-21 00:00: 00 Yes [id number] LOW POTASSIUM 1 tablet DAILY 1 tablet DAILY (route: oral) Med Classific ation: Electroly te Balance-N utritiona l Products Entresto 24 mg-26 mg tablet 06-21 00:00: 00 Yes [id number] HEART FAILURE 1 tablet 2 TIMES DAILY 1 tablet 2 TIMES DAILY (route: oral) Med Classific ation: Cardiovas cular Therapy Agents ferrous sulfate 325 mg (65 mg iron) tablet 06-21 00:00: 00 Yes [id number] SUPPLEMENT 1 tablet EVERY OTHER DAY 1 tablet EVERY OTHER DAY (route: oral) Med Classific ation: Electroly te Balance-N utritiona l Products multivitami n tablet 06-21 00:00: 00 Yes [id number] SUPPLEMENT 1 tablet DAILY 1 tablet DAILY (route: oral) Med Classific ation: Electroly te Balance-N utritiona l Products oxcarbazepi ne 300 mg tablet 06-21 00:00: 00 Yes [id number] SEIZURE PREVENTION 1 tablet 2 TIMES DAILY 1 tablet 2 TIMES DAILY (route: oral) Med Classific ation: Central Nervous System Agents pantoprazol e 40 mg tablet,maritza yed release 06-21 00:00: 00 Yes [id number] ULCER PREVENTION 1 tablet 2 TIMES DAILY 1 tablet 2 TIMES DAILY (route: oral) Med Classific ation: Gastroint estinal Therapy Agents Renal Vitamin 0.8 mg tablet 06-21 00:00: 00 Yes [id number] SUPPLEMENT 1 tablet DAILY 1 tablet DAILY (route: oral) Med Classific ation: Electroly te Balance-N utritiona l Products Senna with Docusate Sodium 8.6 mg-50 mg tablet 06-21 00:00: 00 Yes [id number] PREVENT CONSTIPATIO N 1 tablet 2 TIMES DAILY 1 tablet 2 TIMES DAILY (route: oral) Med Classific ation: Gastroint estinal Therapy Agents Vitamin D3 10 mcg (400 unit) tablet 06-21 00:00: 00 Yes [id number] SUPPLEMENT 1 tablet DAILY 1 tablet DAILY (route: oral) Med Classific ation: Electroly te Balance-N utritiona l Products vitamin E (dl, acetate) 90 mg (200 unit) capsule 06-21 00:00: 00 Yes [id number] SUPPLEMENT 1 capsule DAILY 1 capsule DAILY (route: oral) Med Classific ation: Electroly te Balance-N utritiona l Products Vital Signs Vital Name Observation Time Observation Value Commen ts Temperature 2024-07-09 09:58:00.000 98.1 [degF] Temperature 2024-07-03 11:28:00.000 97.4 [degF] Temperature 2024-07-02 12:25:00.000 98.1 [degF] Temperature 2024-06-27 12:04:00.000 97.1 [degF] Temperature 2024-06-25 11:56:00.000 97.9 [degF] Temperature 2024-06-21 14:47:00.000 98 [degF] BMI (%) 2024-06-21 14:38:52.000 19 kg/m2 Height 2024-06-21 14:37:56.000 62 [in_us] Pulse 2024-07-09 09:58:00.000 74 /min Pulse 2024-07-03 11:28:00.000 60 /min Pulse 2024-07-02 12:25:00.000 68 /min Pulse 2024-06-27 12:04:00.000 60 /min Pulse 2024-06-25 11:56:00.000 60 /min Pulse 2024-06-21 14:47:00.000 77 /min O2 Saturation (%) 2024-07-09 09:58:00.000 96 % O2 Saturation (%) 2024-07-03 11:28:00.000 100 % O2 Saturation (%) 2024-07-02 12:25:00.000 91 % O2 Saturation (%) 2024-06-27 12:04:00.000 100 % O2 Saturation (%) 2024-06-25 11:56:00.000 99 % O2 Saturation (%) 2024-06-21 14:47:00.000 99 % Respirations 2024-07-09 09:58:00.000 18 /min Respirations 2024-07-03 11:28:00.000 18 /min Respirations 2024-07-02 12:25:00.000 18 /min Respirations 2024-06-27 12:04:00.000 18 /min Respirations 2024-06-25 11:56:00.000 18 /min Respirations 2024-06-21 14:47:00.000 16 /min Weight (lbs) 2024-07-03 11:31:00.000 109 [lb_av] Weight (lbs) 2024-06-21 14:38:52.000 109 [lb_av] Systolic Blood Pressure 2024-07-09 09:58:00.000 126 mm [Hg] Systolic Blood Pressure 2024-07-03 11:28:00.000 130 mm [Hg] Systolic Blood Pressure 2024-07-02 12:25:00.000 168 mm [Hg] Systolic Blood Pressure 2024-06-27 12:04:00.000 130 mm [Hg] Systolic Blood Pressure 2024-06-25 11:56:00.000 130 mm [Hg] Systolic Blood Pressure 2024-06-21 14:47:00.000 126 mm [Hg] Diastolic Blood Pressure 2024-07-09 09:58:00.000 78 mm [Hg] Diastolic Blood Pressure 2024-07-03 11:28:00.000 70 mm [Hg] Diastolic Blood Pressure 2024-07-02 12:25:00.000 90 mm [Hg] Diastolic Blood Pressure 2024-06-27 12:04:00.000 72 mm [Hg] Diastolic Blood Pressure 2024-06-25 11:56:00.000 76 mm [Hg] Diastolic Blood Pressure 2024-06-21 14:47:00.000 64 mm [Hg] Plan of Treatment Planned Activity Planned Date Details Comments Future Scheduled Test RN TO OBSE RVE, ASSESS, EVALUATE, AND DEVELOP AN INDIVIDUALIZED PLAN OF CARE. AGENCY MAY ACCEPT ORDERS FROM CONSULTING PHYSICIANS MARIELENA. RN TO OBSERVE AND ASSESS, CELL ATTENDANT/JUMPBASTING CANVAS BASTER TO OBSERVE FOR RISK FOR FALLS AND INSTRUCT IN FALL PREVENTION, HOME SAFETY, MEDICATION MANAGEMENT, INFECTION PREVENTION, AND NUTRITION MANAGEMENT. RN/CELL ATTENDANT/JUMPBASTING CANVAS BASTER NURSE MAY PERFORM O2 SATURATION LEVEL ON ADMISSION AND PRN FOR 2 FOR RN TO ASSESS/CELL ATTENDANT TO OBSERVE PATIENT, WITH NOTIFICATION TO THE PHYSICIAN IF SATURATION IS 90% IN THE ABSENCE OF MORE SPECIFIC PARAMETERS FROM THE PHYSICIAN. AGENCY MAY PERFORM A RESUMPTION OF CARE VISIT FOLLOWING ANY HOSPITAL ADMISSION. RN/CELL ATTENDANT/JUMPBASTING CANVAS BASTER TO MONITOR CO-MORBID CONDITIONS LISTED ON THE PLAN OF CARE AND ANY NEW CONDITIONS THAT PRESENT THEMSELVES DURING THIS EPISODE TO IDENTIFY CHANGES AND INTERVENE TO MINIMIZE COMPLICATIONS. [code = RN TO OBSERVE, ASSESS, EVALUATE, AND DEVELOP AN INDIVIDUALIZED PLAN OF CARE. AGENCY MAY ACCEPT ORDERS FROM CONSULTING PHYSICIANS MARIELENA. RN TO OBSERVE AND ASSESS, CELL ATTENDANT/JUMPBASTING CANVAS BASTER TO OBSERVE FOR RISK FOR FALLS AND INSTRUCT IN FALL PREVENTION, HOME SAFETY, MEDICATION MANAGEMENT, INFECTION PREVENTION, AND NUTRITION MANAGEMENT. RN/CELL ATTENDANT/JUMPBASTING CANVAS BASTER NURSE MAY PERFORM O2 SATURATION LEVEL ON ADMISSION AND PRN FOR 2 FOR RN TO ASSESS/CELL ATTENDANT TO OBSERVE PATIENT, WITH NOTIFICATION TO THE PHYSICIAN IF SATURATION IS 90% IN THE ABSENCE OF MORE SPECIFIC PARAMETERS FROM THE PHYSICIAN. AGENCY MAY PERFORM A RESUMPTION OF CARE VISIT FOLLOWING ANY HOSPITAL ADMISSION. RN/CELL ATTENDANT/JUMPBASTING CANVAS BASTER TO MONITOR CO-MORBID CONDITIONS LISTED ON THE PLAN OF CARE AND ANY NEW CONDITIONS THAT PRESENT THEMSELVES DURING THIS EPISODE TO IDENTIFY CHANGES AND INTERVENE TO MINIMIZE COMPLICATIONS.] Future Scheduled Test PHYSICAL T HERAPIST TO EVALUATE FOR UNSTEADY GAIT [code = PHYSICAL THERAPIST TO EVALUATE FOR UNSTEADY GAIT] Future Scheduled Test SPEECH THE RAPIST TO EVALUATE FOR DIFFICULTY FORMING WORDS [code = SPEECH THERAPIST TO EVALUATE FOR DIFFICULTY FORMING WORDS] Future Scheduled Test OCCUPATION AL THERAPIST TO EVALUATE FOR DIFFICULTY WITH ADLS [code = OCCUPATIONAL THERAPIST TO EVALUATE FOR DIFFICULTY WITH ADLS] Future Scheduled Test MEDICATION MANAGEMENT; RN/CELL ATTENDANT/JUMPBASTING CANVAS BASTER TO REVIEW MEDICATIONS FOR INTERACTIONS, EFFECTIVENESS OF DRUG THERAPY, AND SIGNS/SYMPTOMS OF ADVERSE REACTIONS. MAY INSTRUCT AND REINFORCE MEDICATION TEACHING RELATED TO THE USE OF MEDICATIONS, DOSAGE, FREQUENCY, PURPOSE, SIDE EFFECTS, AND TO REPORT COMPLICATIONS. [code = MEDICATION MANAGEMENT; RN/CELL ATTENDANT/JUMPBASTING CANVAS BASTER TO REVIEW MEDICATIONS FOR INTERACTIONS, EFFECTIVENESS OF DRUG THERAPY, AND SIGNS/SYMPTOMS OF ADVERSE REACTIONS. MAY INSTRUCT AND REINFORCE MEDICATION TEACHING RELATED TO THE USE OF MEDICATIONS, DOSAGE, FREQUENCY, PURPOSE, SIDE EFFECTS, AND TO REPORT COMPLICATIONS.] Future Scheduled Test ANTICOAGUL ATION MANAGEMENT; RN TO ASSESS AND TEACH, CELL ATTENDANT/JUMPBASTING CANVAS BASTER TO OBSERVE/TEACH/MONITOR EFFECTIVENESS OF ANTICOAGULATION THERAPY. RN/CELL ATTENDANT/JUMPBASTING CANVAS BASTER TO INSTRUCT ON SIGNS AND SYMPTOMS OF BLEEDING/ADVERSE REACTIONS TO REPORT TO PHYSICIAN. [code = ANTICOAGULATION MANAGEMENT; RN TO ASSESS AND TEACH, CELL ATTENDANT/JUMPBASTING CANVAS BASTER TO OBSERVE/TEACH/MONITOR EFFECTIVENESS OF ANTICOAGULATION THERAPY. RN/CELL ATTENDANT/JUMPBASTING CANVAS BASTER TO INSTRUCT ON SIGNS AND SYMPTOMS OF BLEEDING/ADVERSE REACTIONS TO REPORT TO PHYSICIAN. ] Future Scheduled Test FALL REDUC TION MANAGEMENT; RN TO ASSESS AND OBSERVE, CELL ATTENDANT/JUMPBASTING CANVAS BASTER TO OBSERVE FALL RISK FACTORS AND EDUCATE PATIENT/CAREGIVER ON STRATEGIES TO MINIMIZE THE RISK OF FALLING. [code = FALL REDUCTION MANAGEMENT; RN TO ASSESS AND OBSERVE, CELL ATTENDANT/JUMPBASTING CANVAS BASTER TO OBSERVE FALL RISK FACTORS AND EDUCATE PATIENT/CAREGIVER ON STRATEGIES TO MINIMIZE THE RISK OF FALLING.] Future Scheduled Test GENITOURIN LUIS MANAGEMENT; RN TO ASSESS AND TEACH, CELL ATTENDANT/JUMPBASTING CANVAS BASTER TO OBSERVE AND TEACH RELATED TO ALTERED GENITOURINARY STATUS TO MINIMIZE COMPLICATIONS AND REDUCE HOSPITALIZATION. [code = GENITOURINARY MANAGEMENT; RN TO ASSESS AND TEACH, CELL ATTENDANT/JUMPBASTING CANVAS BASTER TO OBSERVE AND TEACH RELATED TO ALTERED GENITOURINARY STATUS TO MINIMIZE COMPLICATIONS AND REDUCE HOSPITALIZATION.] Future Scheduled Test INDWELLING URINARY CATHETER INSERTION; RN/CELL ATTENDANT/JUMPBASTING CANVAS BASTER TO PERFORM INSERTION OF 16 FR INDWELLING CATHETER, INSTILL 10 CC OF SALINE INTO BALLOON, SECURE TUBING WITH APPROPRIATE SECUREMENT DEVICE CHANGE EVERY 4WEEKSAND PRN FOR LEAKAGE, BLOCKAGE, DISLODGEMENT, OR MALFUNCTION. [code = INDWELLING URINARY CATHETER INSERTION; RN/CELL ATTENDANT/JUMPBASTING CANVAS BASTER TO PERFORM INSERTION OF 16 FR INDWELLING CATHETER, INSTILL 10 CC OF SALINE INTO BALLOON, SECURE TUBING WITH APPROPRIATE SECUREMENT DEVICE CHANGE EVERY 4WEEKSAND PRN FOR LEAKAGE, BLOCKAGE, DISLODGEMENT, OR MALFUNCTION.] Future Scheduled Test NEUROLOGIC AL SYSTEM MANAGEMENT; RN TO ASSESS AND TEACH, JUMPBASTING CANVAS BASTER/CELL ATTENDANT TO OBSERVE AND TEACH RELATED TO ALTERED NEUROLOGICAL STATUS TO MINIMIZE COMPLICATIONS AND REDUCE HOSPITALIZATION. [code = NEUROLOGICAL SYSTEM MANAGEMENT; RN TO ASSESS AND TEACH, JUMPBASTING CANVAS BASTER/CELL ATTENDANT TO OBSERVE AND TEACH RELATED TO ALTERED NEUROLOGICAL STATUS TO MINIMIZE COMPLICATIONS AND REDUCE HOSPITALIZATION.] Future Scheduled Test ANEMIA MAN AGEMENT; RN TO ASSESS AND TEACH, JUMPBASTING CANVAS BASTER/CELL ATTENDANT TO OBSERVE AND TEACH AND PROVIDE EDUCATION ON ANEMIA. [code = ANEMIA MANAGEMENT; RN TO ASSESS AND TEACH, JUMPBASTING CANVAS BASTER/CELL ATTENDANT TO OBSERVE AND TEACH AND PROVIDE EDUCATION ON ANEMIA.] Future Scheduled Test GASTROINTE STINAL MANAGEMENT; RN TO ASSESS AND TEACH, JUMPBASTING CANVAS BASTER/CELL ATTENDANT TO OBSERVE AND TEACH RELATED TO ALTERED GASTROINTESTINAL STATUS TO MINIMIZE COMPLICATIONS AND REDUCE HOSPITALIZATION. [code = GASTROINTESTINAL MANAGEMENT; RN TO ASSESS AND TEACH, JUMPBASTING CANVAS BASTER/CELL ATTENDANT TO OBSERVE AND TEACH RELATED TO ALTERED GASTROINTESTINAL STATUS TO MINIMIZE COMPLICATIONS AND REDUCE HOSPITALIZATION.] Future Scheduled Test PAIN MANAG EMENT; RN TO ASSESS AND TEACH, JUMPBASTING CANVAS BASTER/CELL ATTENDANT TO OBSERVE AND TEACH AND PROVIDE EDUCATION ON PAIN MANAGEMENT TECHNIQUES. [code = PAIN MANAGEMENT; RN TO ASSESS AND TEACH, JUMPBASTING CANVAS BASTER/CELL ATTENDANT TO OBSERVE AND TEACH AND PROVIDE EDUCATION ON PAIN MANAGEMENT TECHNIQUES.] Future Scheduled Test PRN VISITS ; NUMBER OF RN/CELL ATTENDANT/JUMPBASTING CANVAS BASTER VISITS: 2 RN/CELL ATTENDANT/JUMPBASTING CANVAS BASTER TO PERFORM: OCCUP THER FOR THE FOLLOWING REASONS: URINARY COMPLICATIONS AND URINARY MOLECULAR TESTING [code = PRN VISITS; NUMBER OF RN/CELL ATTENDANT/JUMPBASTING CANVAS BASTER VISITS: 2 RN/CELL ATTENDANT/JUMPBASTING CANVAS BASTER TO PERFORM: OCCUP THER FOR THE FOLLOWING REASONS: URINARY COMPLICATIONS AND URINARY MOLECULAR TESTING ] Future Scheduled Test RISK FOR H OSPITALIZATION; RN TO ASSESS/TEACH, JUMPBASTING CANVAS BASTER/CELL ATTENDANT TO OBSERVE/TEACH PATIENT/CAREGIVER ON RISK FOR HOSPITALIZATION/EMERGENCY ROOM VISITS, TEACH SIGNS AND SYMPTOMS THAT PUT PATIENT AT RISK, WHEN TO NOTIFY NURSE/PHYSICIAN OF COMPLICATIONS/DECLINE, AND WHEN TO CALL 911. [code = RISK FOR HOSPITALIZATION; RN TO ASSESS/TEACH, JUMPBASTING CANVAS BASTER/CELL ATTENDANT TO OBSERVE/TEACH PATIENT/CAREGIVER ON RISK FOR HOSPITALIZATION/EMERGENCY ROOM VISITS, TEACH SIGNS AND SYMPTOMS THAT PUT PATIENT AT RISK, WHEN TO NOTIFY NURSE/PHYSICIAN OF COMPLICATIONS/DECLINE, AND WHEN TO CALL 911.] Future Scheduled Test CARDIOVASC ULAR SYSTEM; RN TO ASSESS/TEACH, CELL ATTENDANT/JUMPBASTING CANVAS BASTER TO OBSERVE/TEACH RELATED TO ALTERED CARDIOVASCULAR STATUS TO MINIMIZE COMPLICATIONS AND REDUCE HOSPITALIZATION. [code = CARDIOVASCULAR SYSTEM; RN TO ASSESS/TEACH, CELL ATTENDANT/JUMPBASTING CANVAS BASTER TO OBSERVE/TEACH RELATED TO ALTERED CARDIOVASCULAR STATUS TO MINIMIZE COMPLICATIONS AND REDUCE HOSPITALIZATION.] Future Scheduled Test HYPERTENSI ON MANAGEMENT; RN TO ASSESS AND TEACH, CELL ATTENDANT/JUMPBASTING CANVAS BASTER TO OBSERVE AND TEACH WARNING SIGNS AND SYMPTOMS TO AVOID HOSPITALIZATION. [code = HYPERTENSION MANAGEMENT; RN TO ASSESS AND TEACH, CELL ATTENDANT/JUMPBASTING CANVAS BASTER TO OBSERVE AND TEACH WARNING SIGNS AND SYMPTOMS TO AVOID HOSPITALIZATION. ] Future Scheduled Test URINARY MO LECULAR TESTING PROTOCOL UP TO 2 PRN RN/CELL ATTENDANT/JUMPBASTING CANVAS BASTER VISITS MAY BE PERFORMED FOR S/S OF UTI. RN TO ASSESS, CELL ATTENDANT/JUMPBASTING CANVAS BASTER TO OBSERVE INITIATION OF UTI PROTOCOL. RN/JUMPBASTING CANVAS BASTER/CELL ATTENDANT TO INSTRUCT PATIENT AND/OR CAREGIVER ON S/S OF UTI TO REPORT TO RN/JUMPBASTING CANVAS BASTER/CELL ATTENDANT IF NEW OR WORSENING SYMPTOMS. DRINK PLENTY OF WATER THROUGHOUT THE DAY TO MAINTAIN HYDRATION (UNLESS CONTRAINDICATED.) URINATE WHEN THE URGE IS FELT, DO NOT WAIT. WASH GENITALS DAILY. WIPE FROM FRONT TO BACK AFTER HAVING A BOWEL MOVEMENT. RN/JUMPBASTING CANVAS BASTER/CELL ATTENDANT TO OBTAIN MOLECULAR URINE TESTING BY OPTION 1 OR OPTION 2 (OPTION 1) RN/JUMPBASTING CANVAS BASTER/CELL ATTENDANT TO OBTAIN U/A WITH REFLEX TO UTI PANEL (MOLECULAR) VIA CLEAN CATCH URINE AND IF UNABLE TO OBTAIN MAY PERFORM AN IN AND OUT CATH. IF PATIENT HAS INDWELLING CATHETER MAY OBTAIN FROM SAMPLING PORT. (OPTION 2) RN/JUMPBASTING CANVAS BASTER/CELL ATTENDANT TO OBTAIN UTI PANEL (MOLECULAR) VIA SWAB COLLECTION METHOD FROM ADULT BRIEF/DIAPER OR PAD IF PATIENT IS INCONTINENT. NOTIFY PROVIDER OF RESULTS AND OBTAIN FURTHER ORDERS. [code = URINARY MOLECULAR TESTING PROTOCOL UP TO 2 PRN RN/CELL ATTENDANT/JUMPBASTING CANVAS BASTER VISITS MAY BE PERFORMED FOR S/S OF UTI. RN TO ASSESS, CELL ATTENDANT/JUMPBASTING CANVAS BASTER TO OBSERVE INITIATION OF UTI PROTOCOL. RN/JUMPBASTING CANVAS BASTER/CELL ATTENDANT TO INSTRUCT PATIENT AND/OR CAREGIVER ON S/S OF UTI TO REPORT TO RN/JUMPBASTING CANVAS BASTER/CELL ATTENDANT IF NEW OR WORSENING SYMPTOMS. DRINK PLENTY OF WATER THROUGHOUT THE DAY TO MAINTAIN HYDRATION (UNLESS CONTRAINDICATED.) URINATE WHEN THE URGE IS FELT, DO NOT WAIT. WASH GENITALS DAILY. WIPE FROM FRONT TO BACK AFTER HAVING A BOWEL MOVEMENT. RN/JUMPBASTING CANVAS BASTER/CELL ATTENDANT TO OBTAIN MOLECULAR URINE TESTING BY OPTION 1 OR OPTION 2 (OPTION 1) RN/JUMPBASTING CANVAS BASTER/CELL ATTENDANT TO OBTAIN U/A WITH REFLEX TO UTI PANEL (MOLECULAR) VIA CLEAN CATCH URINE AND IF UNABLE TO OBTAIN MAY PERFORM AN IN AND OUT CATH. IF PATIENT HAS INDWELLING CATHETER MAY OBTAIN FROM SAMPLING PORT. (OPTION 2) RN/JUMPBASTING CANVAS BASTER/CELL ATTENDANT TO OBTAIN UTI PANEL (MOLECULAR) VIA SWAB COLLECTION METHOD FROM ADULT BRIEF/DIAPER OR PAD IF PATIENT IS INCONTINENT. NOTIFY PROVIDER OF RESULTS AND OBTAIN FURTHER ORDERS.] Goal Patient Goal - T O COMMUNICATE BETTER AND IMPROVE GAIT Goal Provider Goal - A PLAN OF CARE WILL BE ESTABLISHED THAT MEETS THE PATIENTS NEEDS. PATIENT WILL DEMONSTRATE OXYGEN SATURATION WITHIN NORMAL LIMITS OR PATIENTS OPTIMAL LEVEL ESTABLISHED BY THE PHYSICIAN THROUGHOUT CARE. CHANGES TO CO-MORBID CONDITIONS AND ANY NEW CONDITIONS WILL BE IDENTIFIED AND REPORTED TO THE PHYSICIAN. Goal Provider Goal - PATIENT WILL BENEFIT FROM PT SERVICES BY 5.18.25 Goal Provider Goal - PATIENT WILL BENEFIT FROM ST SERVICES BY 5.18.25 Goal Provider Goal - PATIENT WILL BENEFIT FROM OT SERVICES BY 5.18.25 Goal Provider Goal - PATIENT/CAREGIVER TO VERBALIZE, AND CONSISTENTLY DEMONSTRATE EFFECTIVE, SAFE MANAGEMENT OF MEDICATION INCLUDING KNOWLEDGE OF EFFECTIVENESS, POTENTIAL SIDE EFFECTS AND DRUG REACTIONS AND WHEN TO CONTACT THE APPROPRIATE CARE PROVIDER. PATIENT/CAREGIVER WILL BE ABLE TO VERBALIZE UNDERSTANDING OF MEDICATION REGIMEN AND ACCURATELY TAKE MEDICATIONS PRESCRIBED WITHOUT ADVERSE EFFECTS BY 5.18.25 Goal Provider Goal - INEFFECTIVE ANTICOAGULATION THERAPY WILL BE IDENTIFIED AND PROMPTLY REPORTED TO THE PHYSICIAN. PATIENT / CAREGIVER WILL VERBALIZE UNDERSTANDING OF MEASURES TO MAINTAIN EFFECTIVE ANTICOAGULATION THERAPY BY 5.18.25 Goal Provider Goal - PATIENT/CAREGIVER WILL VERBALIZE/DEMONSTRATE UNDERSTANDING OF FALL RISK FACTORS AND IMPLEMENT STRATEGIES TO MINIMIZE FALL RISK. PATIENT/CAREGIVER WILL VERBALIZE/DEMONSTRATE AN ABILITY TO ADHERE TO FALL REDUCTION SELF-MANAGEMENT AND LIFE-STYLE CHANGES BY 5.18.25 Goal Provider Goal - PATIENT / CAREGIVER WILL VERBALIZE/DEMONSTRATE UNDERSTANDING OF MEASURES TO MANAGE ALTERED GENITOURINARY STATUS BY 5.18.25 Goal Provider Goal - PATIENT WILL VERBALIZE/TOLERATE CATHETER CHANGE BY 5.18.25 Goal Provider Goal - PATIENT / CAREGIVER WILL VERBALIZE/DEMONSTRATE UNDERSTANDING OF MEASURES TO MANAGE ALTERED NEUROLOGICAL STATUS BY 5.18.25 Goal Provider Goal - PATIENT/CAREGIVER WILL VERBALIZE UNDERSTANDING OF CARE AND MANAGEMENT OF ANEMIA BY 5.18.25 Goal Provider Goal - PATIENT / CAREGIVER WILL VERBALIZE/DEMONSTRATE UNDERSTANDING OF MEASURES TO MANAGE ALTERED GASTROINTESTINAL STATUS BY 5.18.25 Goal Provider Goal - PATIENT / CAREGIVER WILL VERBALIZE / DEMONSTRATE UNDERSTANDING OF PAIN CONTROL MEASURES BY 5.18.25 Goal Provider Goal - PATIENT WILL UTILIZE PRN VISITS TO PREVENT HOSPITALIZATION BY 5.18.25 Goal Provider Goal - PATIENT/CAREGIVER WILL VERBALIZE UNDERSTANDING OF SIGNS AND SYMPTOMS THAT PUT THE PATIENT AT RISK FOR HOSPITALIZATION /EMERGENCY ROOM VISITS, WHEN TO NOTIFY NURSE/PHYSICIAN OF COMPLICATIONS/DECLINE AND WHEN TO CALL 911. Goal Provider Goal - PATIENT / CAREGIVER WILL VERBALIZE/DEMONSTRATE UNDERSTANDING OF MEASURES TO MANAGE ALTERED CARDIOVASCULAR STATUS BY 5.18.25 Goal Provider Goal - PATIENT / CAREGIVER WILL VERBALIZE/DEMONSTRATE AN ABILITY TO ADHERE TO SELF-MANAGEMENT OF HTN TO MINIMIZE COMPLICATIONS AND AVOID HOSPITALIZATION BY 5.18.25 Goal Provider Goal - PATIENT WILL DEMONSTRATE IMPROVEMENT IN S/S OF UTI TO AVOID HOSPITALIZATION. Encounters Start Date/Time End Date/Time Encounter Type Admission Type Attending Clinicians Care Facility Care Department Encounter ID Discharge Date Discharge Status Discharge Condition Discharge Reason Percent Goals Met 2024-06-21 00:00:00 2024-08-19 00:00:00 Outpatient NEW ADMISSION TADEO HANSON [facility] [place] [id number] 18.75
--- OUTSIDE RECORDS SUMMARY | 2024-07-13 11:39 | XMS_ITS | Continuity of Care Document ---
Author Organization [facility] Address [address] [place] [id number] Phone Care Team Providers Care Aoc Aad[employer] Operations Staff Officer Name Role Phone Brisa ORO, Tyler Unavailable [...] Providers Copied on Encounter [facility], [address], [facility], tel:[phone] [facility] Emergency Department Orthopedics [facility] No Information 2 Brisa Scott. [address] [facility] [place], [id number] . tel: [phone] [facility], [address] [place] [address], [facility], tel:[phone] [facility] Emergency Department Orthopedics [facility] CervicalgiaPain, Low Back 2 Brisa Scott. [address] [facility] [place], [place], [id number] . tel: [phone] [facility], [address] [place] [address], [facility], tel:[phone] [facility] Emergency Department Orthopedics [facility] No Information 2 Brisa Scott. [address], [place], [place], [id number] . tel:[phone] [facility], [address], [place], [address], tel:[phone] [facility] My back hurts (chief complaint) CervicalgiaCervic al StrainPain, Low Back 2 Brisa Scott. [address], [place], [place], [id number] . tel:[phone] Referring Provider: [address], [place], [address] . tel:[phone] Family History Family Member Type Diagnosis Age At Onset No Information Payers Payer name Insurance type Covered constitution party ID Authoriza tion(s) No Information Social History [...]
--- OUTSIDE RECORDS SUMMARY | 2024-07-13 11:39 | XMS_ITS | Encounter Summary ---
Author Organization [facility] Address [address] [place] [address] Care Team Providers Care Grounds Crew Supervisor Name Role Phone Maria Del Carmen Gil MD Primary Care Provider Encounter Details Date Type Department Care Team (Late st Contact Info) Description 11/12/2020 Prep for Procedure [facility] Pre-Admission Testing [address] [place], [place] [id number] Bradley Turner MD [address] [place] [address] Social History Tobacco Use Types Packs/Day Years [...] seen. IMPRESSION: No acute findings Referred By: BRALDEY TURNER Interpreted By: Oni Flower MD, 11/11/2020 2:18 PM Bradley Turner MD GENERAL IMAGING Kori l Result * PTT, PARTIAL THROMBOPLASTIN TIME (11/10/2020 9:37 AM CDT) PTT 28.5 25.1 - 36.5 SEC 11/10/2020 10:28 AM CDT [facility] 11/10/2020 9:37 AM CDT Bradley Turner MD LABORATORY Kori l Result [facility] [address] [place] [address], [place] [phone] * (ABNORMAL) PROTIME/INR, VENOUS (11/10/2020 9:37 AM CDT) Pathologist [facility] PROTIME 13.0(H) 10.2 - 12.9 SEC 11/10/2020 10:28 AM CDT [facility] INR 1.1 11/10/2020 10:28 AM CDT [facility] Comment: Recommended INR Therapeutic Goals: 2.0-3.0 Routine Therapy 2.5-3.5 Mechanical Prosthetic Valves (High Risk) 11/10/2020 9:37 AM CDT Bradley Turner MD LABORATORY Kori l Result [facility] [address] [place] [address], * (ABNORMAL) BASIC METABOLIC PANEL (11/10/2020 9:37 AM CDT) Pathologist [facility] GLUCOSE 98 70 - 99 MG/DL 11/10/2020 10:17 AM CDT [facility] BUN 29(H) 7 - 18 MG/DL 11/10/2020 10:17 AM CDT [facility] CREATININE S/P/B 1.38(H) 0.55 - 1.02 MG/DL 11/10/2020 10:17 AM CDT [facility] SODIUM S/P/B 138 136 - 145 MMOL/L 11/10/2020 10:17 AM CDT [facility] POTASSIUM S/P/B 4.8 3.5 - 5.1 MMOL/L 11/10/2020 10:17 AM CDT [facility] CHLORIDE S/P/B 108 100 - 108 MMOL/L 11/10/2020 10:17 AM CDT [facility] CO2 24.5 21 - 32 MMOL/L 11/10/2020 10:17 AM CDT [facility] CALCIUM S/P/B 9.0 8.5 - 10.1 MG/DL 11/10/2020 10:17 AM CDT [facility] ANION GAP 5.5 5 - 15 MMOL/L 11/10/2020 10:17 AM CDT [facility] BUN CREATININE RATIO 21.0 6 - 26 11/10/2020 10:17 AM CDT [facility] EGFR NON-AFR. AMER. 37(L) >90 ML/MIN/1.7 3 M2 11/10/2020 10:17 AM CDT [facility] EGFR AFR. AMER. 42(L) >90 ML/MIN/1.7 3 M2 11/10/2020 10:17 AM CDT [facility] Comment: NOTE: eGFR is not calculated for patients <18 years of age. This is an estimated GFR (CKD EPI) and should not be used for calculating drug doses. 11/10/2020 9:37 AM CDT Bradley Turner MD LABORATORY Kori renteria Result [facility] [address] [place] [address], [place] [phone] * (ABNORMAL) CBC W/DIFF AUTOMATED (11/10/2020 9:37 AM CDT) WBC 5.8 4.5 - 11.0 x10'3/uL 11/10/2020 9:57 AM CDT [facility] RBC 3.54(L) 4.20 - 5.40 x10'6/uL 11/10/2020 9:57 AM CDT [facility] HGB 11.1(L) 12.0 - 16.0 G/DL 11/10/2020 9:57 AM CDT [facility] HCT 34.2(L) 38.0 - 48.0 % 11/10/2020 9:57 AM CDT [facility] MCV 96.6 81.0 - 99.0 FL 11/10/2020 9:57 AM CDT [facility] MCH 31.4(H) 27.0 - 31.0 PG 11/10/2020 9:57 AM CDT [facility] MCHC 32.5 32.0 - 36.0 G/DL 11/10/2020 9:57 AM CDT [facility] RDW 12.4 11.5 - 14.5 % 11/10/2020 9:57 AM CDT [facility] PLT 217 130 - 400 x10'3/uL 11/10/2020 9:57 AM CDT [facility] MPV 10.5 9.3 - 12.2 FL 11/10/2020 9:57 AM CDT [facility] DIFFERENTIAL TYPE AUTOMATED DIFFERENTIAL 11/10/2020 9:57 AM CDT [facility] NEUTROPHILS % 65.7 % 11/10/2020 9:57 AM CDT [facility] LYMPHOCYTES % 24.1 % 11/10/2020 9:57 AM CDT [facility] MONOCYTES % 6.9 % 11/10/2020 9:57 AM CDT [facility] EOSINOPHILS 1.9 % 11/10/2020 9:57 AM CDT [facility] BASOPHILS 1.2 % 11/10/2020 9:57 AM CDT [facility] IMMATURE GRANS % 0.2 % 11/11/19 9:57 AM CDT [facility] ABS. NEUTROPHILS TOTAL 3.79 1.80 - 7.70 x10'3/uL 11/10/2020 9:57 AM CDT [facility] ABS. LYMPHOCYTES 1.39 1.00 - 4.80 x10'3/uL 11/10/2020 9:57 AM CDT [facility] ABS. MONOCYTES 0.40 0.24 - 0.86 x10'3/uL 11/10/2020 9:57 AM CDT [facility] ABS. EOSINOPHILS 0.11 0.04 - 0.36 x10'3/uL 11/10/2020 9:57 AM CDT [facility] ABS. BASOPHILS 0.07 0.01 - 0.08 x10'3/uL 11/10/2020 9:57 AM CDT [facility] ABS. IMMATURE GRANULOCYTES 0.01 0.00 - 0.49 x10'3/uL 11/10/2020 9:57 AM CDT [facility] 11/10/2020 9:37 AM CDT Bradley Turner MD LABORATORY Kori l Result Performing Organization Address City/State/[facility] Co de Phone Number [facility] [address] [place] [address], documented in this encounter Visit Diagnoses Diagnosis Neurogenic bladder due to old stroke Preoperative testing Preoperative examination, unspecified Neurogenic bladder due to old stroke- Primary Preoperative testing Preoperative examination, unspecified documented in this encounter Care Teams Grounds Crew Supervisor Relationship Specialty Start Date End Date Maria Del Carmen Gil MD [address] [address] PCP - General INTERNAL MEDICINE 11/06/20 documented as of this encounter
--- OUTSIDE RECORDS SUMMARY | 2024-07-13 11:39 | XMS_ITS | Clinical Summary ---
Author Organization Unknown Care Team Providers Care Copy Cutter Name Role Phone MARIELENA ORO, TAZ Unavailable Unavailable VALENTIN RN, TADEO Unavailable Unavailtimothy WILLIAM LPN, PAMELA Unavailable Unavailable SHELLEY PT, VERN Unavailable Unavailable TYLER COKE INSPECTOR, TERESITA Unavailable Unavailable JANICE OT, YOGI Unavailable Unavailable Payers Payer Name Policy Type Policy Number Effective Date Expira tion Date [facility] [id number] Problems Condition Name Condition Details Condition Category [...] OF URINARY DEVICE Active 06-12 00:00: 00 LONGTERM (CURRENT) USE OF ASPIRIN Active 06-21 00:00: 00 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 (CURRENT) USE OF ANTITHROMBOT ICS/ANTIPLAT ELETS Active [...] 20 mg tablet 06-09 00:00: 00 Yes [id number] DEPRESSION 1 tablet DAILY 1 tablet DAILY (route: oral) Med Classific ation: Central Nervous System Agents cephalexin 250 mg capsule 05-26 00:00: 00 Yes [id number] PROPHYLACTI C 1 capsule BEDTIME 1 capsule BEDTIME (route: oral) Med Classific ation: Anti-Infe ctive Agents misoprostol 200 mcg tablet 05-26 00:00: 00 Yes [id number] ULCER PREVENTION 1 tablet EVERY DAY 1 tablet EVERY DAY (route: oral) Med Classific ation: Gastroint estinal Therapy Agents pyridoxine (vitamin B6) 100 mg tablet 05-26 00:00: 00 Yes [id number] SUPPLEMENT 1 tablet DAILY 1 tablet DAILY (route: oral) Med Classific ation: Electroly te Balance-N utritiona l Products carvedilol 12.5 mg tablet 05-24 00:00: 00 Yes [id number] HIGH BLOOD PRESSURE 1 tablet 2 TIMES DAILY 1 tablet 2 TIMES DAILY (route: oral) Med Classific ation: Cardiovas cular Therapy Agents sucralfate 100 mg/mL oral suspension 15 00:00: 00 Yes [id number] PREVENT ULCER 10 mL BEFORE MEALS AND BEDTIME 10 mL BEFORE MEALS AND BEDTIME (route: oral) Med Classific ation: Gastroint estinal Therapy Agents acetaminoph en 325 mg tablet 06-21 00:00: 00 Yes [id number] NEEDED FOR MILD PAIN 2 tablet EVERY 4 HOURS 2 tablet EVERY 4 HOURS (route: oral) Med Classific ation: Analgesic , Anti-infl ammatory or Antipyret ic Aspirin Childrens 81 mg chewable tablet 06-21 00:00: 00 Yes [id number] BLOOD THINNER 1 tablet DAILY 1 tablet DAILY (route: oral) Med Classific ation: Hematolog ical Agents atorvastati n 80 mg tablet 06-21 00:00: 00 Yes [id number] CHOLESTEROL 1 tablet BEDTIME 1 tablet BEDTIME (route: oral) Med Classific ation: Cardiovas cular Therapy Agents buspirone 15 mg tablet 06-21 00:00: 00 Yes [id number] ANXIETY 1 tablet 3 TIMES DAILY 1 tablet 3 TIMES DAILY (route: oral) Med Classific ation: Central Nervous System Agents calcium 200 mg (as calcium citrate 950 mg) tablet 06-21 00:00: 00 Yes [id number] SUPPLEMENT 1 tablet DAILY 1 tablet DAILY (route: oral) Med Classific ation: Electroly te Balance-N utritiona l Products clopidogrel 75 mg tablet 06-21 00:00: 00 Yes [id number] BLOOD THINNER 1 tablet DAILY 1 tablet DAILY (route: oral) Med Classific ation: Hematolog ical Agents cyanocobala min (vit B-12) 1,000 mcg tablet 06-21 00:00: 00 Yes [id number] SUPPLEMENT 1 tablet DAILY 1 tablet DAILY (route: oral) Med Classific ation: Electroly te Balance-N utritiona l Products cyclobenzap rine 10 mg tablet 06-21 00:00: 00 Yes [id number] NEEDED FOR MUSCLE SPASMS 1 tablet 3 TIMES DAILY 1 tablet 3 TIMES DAILY (route: oral) Med Classific ation: Locomotor System Effer-K 25 mEq effervescen t tablet 06-21 00:00: 00 Yes [id number] LOW POTASSIUM 1 tablet DAILY 1 tablet DAILY (route: oral) Med Classific ation: Electroly te Balance-N utritiona l Products Entresto 24 mg-26 mg tablet 06-21 00:00: 00 Yes [id number] HEART FAILURE 1 tablet 2 TIMES DAILY 1 tablet 2 TIMES DAILY (route: oral) Med Classific ation: Cardiovas cular Therapy Agents ferrous sulfate 325 mg (65 mg iron) tablet 06-21 00:00: 00 Yes [id number] SUPPLEMENT 1 tablet EVERY OTHER DAY 1 tablet EVERY OTHER DAY (route: oral) Med Classific ation: Electroly te Balance-N utritiona l Products multivitami n tablet 06-21 00:00: 00 Yes [id number] SUPPLEMENT 1 tablet DAILY 1 tablet DAILY (route: oral) Med Classific ation: Electroly te Balance-N utritiona l Products oxcarbazepi ne 300 mg tablet 06-21 00:00: 00 Yes [id number] SEIZURE PREVENTION 1 tablet 2 TIMES DAILY 1 tablet 2 TIMES DAILY (route: oral) Med Classific ation: Central Nervous System Agents pantoprazol e 40 mg tablet,maritza yed release 06-21 00:00: 00 Yes [id number] ULCER PREVENTION 1 tablet 2 TIMES DAILY 1 tablet 2 TIMES DAILY (route: oral) Med Classific ation: Gastroint estinal Therapy Agents Renal Vitamin 0.8 mg tablet 06-21 00:00: 00 Yes [id number] SUPPLEMENT 1 tablet DAILY 1 tablet DAILY (route: oral) Med Classific ation: Electroly te Balance-N utritiona l Products Senna with Docusate Sodium 8.6 mg-50 mg tablet 06-21 00:00: 00 Yes [id number] PREVENT CONSTIPATIO N 1 tablet 2 TIMES DAILY 1 tablet 2 TIMES DAILY (route: oral) Med Classific ation: Gastroint estinal Therapy Agents Vitamin D3 10 mcg (400 unit) tablet 06-21 00:00: 00 Yes [id number] SUPPLEMENT 1 tablet DAILY 1 tablet DAILY (route: oral) Med Classific ation: Electroly te Balance-N utritiona l Products vitamin E (dl, acetate) 90 mg (200 unit) capsule 06-21 00:00: 00 Yes [id number] SUPPLEMENT 1 capsule DAILY 1 capsule DAILY [...] PHYSICIANS MARIELENA. RN TO OBSERVE AND ASSESS, DYED RAW STOCK BLOWER FEEDER/CHANNELING MACHINE OPERATOR TO OBSERVE FOR RISK FOR FALLS AND INSTRUCT IN FALL PREVENTION, HOME SAFETY, MEDICATION MANAGEMENT, INFECTION PREVENTION, AND NUTRITION MANAGEMENT. RN/DYED RAW STOCK BLOWER FEEDER/CHANNELING MACHINE OPERATOR NURSE MAY PERFORM O2 SATURATION LEVEL ON ADMISSION AND PRN FOR 2 FOR RN TO ASSESS/DYED RAW STOCK BLOWER FEEDER TO OBSERVE PATIENT, WITH NOTIFICATION TO THE PHYSICIAN IF SATURATION IS 90% IN THE ABSENCE OF MORE SPECIFIC PARAMETERS FROM THE PHYSICIAN. AGENCY MAY PERFORM A RESUMPTION OF CARE VISIT FOLLOWING ANY HOSPITAL ADMISSION. RN/DYED RAW STOCK BLOWER FEEDER/CHANNELING MACHINE OPERATOR TO MONITOR CO-MORBID CONDITIONS LISTED ON THE PLAN OF CARE AND ANY NEW CONDITIONS THAT PRESENT THEMSELVES DURING THIS EPISODE TO IDENTIFY CHANGES AND INTERVENE TO MINIMIZE COMPLICATIONS. [code = RN TO OBSERVE, ASSESS, EVALUATE, AND DEVELOP AN INDIVIDUALIZED PLAN OF CARE. AGENCY MAY ACCEPT ORDERS FROM CONSULTING PHYSICIANS MARIELENA. RN TO OBSERVE AND ASSESS, DYED RAW STOCK BLOWER FEEDER/CHANNELING MACHINE OPERATOR TO OBSERVE FOR RISK FOR FALLS AND INSTRUCT IN FALL PREVENTION, HOME SAFETY, MEDICATION MANAGEMENT, INFECTION PREVENTION, AND NUTRITION MANAGEMENT. RN/DYED RAW STOCK BLOWER FEEDER/CHANNELING MACHINE OPERATOR NURSE MAY PERFORM O2 SATURATION LEVEL ON ADMISSION AND PRN FOR 2 FOR RN TO ASSESS/DYED RAW STOCK BLOWER FEEDER TO OBSERVE PATIENT, WITH NOTIFICATION TO THE PHYSICIAN IF SATURATION IS 90% IN THE ABSENCE OF MORE SPECIFIC PARAMETERS FROM THE PHYSICIAN. AGENCY MAY PERFORM A RESUMPTION OF CARE VISIT FOLLOWING ANY HOSPITAL ADMISSION. RN/DYED RAW STOCK BLOWER FEEDER/CHANNELING MACHINE OPERATOR TO MONITOR CO-MORBID CONDITIONS LISTED ON THE [...] WITH ADLS] Future Scheduled Test MEDICATION MANAGEMENT; RN/DYED RAW STOCK BLOWER FEEDER/CHANNELING MACHINE OPERATOR TO REVIEW MEDICATIONS FOR INTERACTIONS, EFFECTIVENESS OF DRUG THERAPY, AND SIGNS/SYMPTOMS OF ADVERSE REACTIONS. MAY INSTRUCT AND REINFORCE MEDICATION TEACHING RELATED TO THE USE OF MEDICATIONS, DOSAGE, FREQUENCY, PURPOSE, SIDE EFFECTS, AND TO REPORT COMPLICATIONS. [code = MEDICATION MANAGEMENT; RN/DYED RAW STOCK BLOWER FEEDER/CHANNELING MACHINE OPERATOR TO REVIEW MEDICATIONS FOR INTERACTIONS, EFFECTIVENESS OF DRUG THERAPY, AND SIGNS/SYMPTOMS OF ADVERSE REACTIONS. MAY INSTRUCT AND REINFORCE MEDICATION TEACHING RELATED TO THE USE OF MEDICATIONS, DOSAGE, FREQUENCY, PURPOSE, SIDE EFFECTS, AND TO REPORT COMPLICATIONS.] Future Scheduled Test ANTICOAGUL ATION MANAGEMENT; RN TO ASSESS AND TEACH, DYED RAW STOCK BLOWER FEEDER/CHANNELING MACHINE OPERATOR TO OBSERVE/TEACH/MONITOR EFFECTIVENESS OF ANTICOAGULATION THERAPY. RN/DYED RAW STOCK BLOWER FEEDER/CHANNELING MACHINE OPERATOR TO INSTRUCT ON SIGNS AND SYMPTOMS OF BLEEDING/ADVERSE REACTIONS TO REPORT TO PHYSICIAN. [code = ANTICOAGULATION MANAGEMENT; RN TO ASSESS AND TEACH, DYED RAW STOCK BLOWER FEEDER/CHANNELING MACHINE OPERATOR TO OBSERVE/TEACH/MONITOR EFFECTIVENESS OF ANTICOAGULATION THERAPY. RN/DYED RAW STOCK BLOWER FEEDER/CHANNELING MACHINE OPERATOR TO INSTRUCT ON SIGNS AND SYMPTOMS OF BLEEDING/ADVERSE REACTIONS TO REPORT TO PHYSICIAN. ] Future Scheduled Test FALL REDUC TION MANAGEMENT; RN TO ASSESS AND OBSERVE, DYED RAW STOCK BLOWER FEEDER/CHANNELING MACHINE OPERATOR TO OBSERVE FALL RISK FACTORS AND EDUCATE PATIENT/CAREGIVER ON STRATEGIES TO MINIMIZE THE RISK OF FALLING. [code = FALL REDUCTION MANAGEMENT; RN TO ASSESS AND OBSERVE, DYED RAW STOCK BLOWER FEEDER/CHANNELING MACHINE OPERATOR TO OBSERVE FALL RISK FACTORS AND EDUCATE PATIENT/CAREGIVER ON STRATEGIES TO MINIMIZE THE RISK OF FALLING.] Future Scheduled Test GENITOURIN LUIS MANAGEMENT; RN TO ASSESS AND TEACH, DYED RAW STOCK BLOWER FEEDER/CHANNELING MACHINE OPERATOR TO OBSERVE AND TEACH RELATED TO ALTERED GENITOURINARY STATUS TO MINIMIZE COMPLICATIONS AND REDUCE HOSPITALIZATION. [code = GENITOURINARY MANAGEMENT; RN TO ASSESS AND TEACH, DYED RAW STOCK BLOWER FEEDER/CHANNELING MACHINE OPERATOR TO OBSERVE AND TEACH RELATED TO ALTERED GENITOURINARY STATUS TO MINIMIZE COMPLICATIONS AND REDUCE HOSPITALIZATION.] Future Scheduled Test INDWELLING URINARY CATHETER INSERTION; RN/DYED RAW STOCK BLOWER FEEDER/CHANNELING MACHINE OPERATOR TO PERFORM INSERTION OF 16 FR INDWELLING CATHETER, INSTILL 10 CC OF SALINE INTO BALLOON, SECURE TUBING WITH APPROPRIATE SECUREMENT DEVICE CHANGE EVERY 4WEEKSAND PRN FOR LEAKAGE, BLOCKAGE, DISLODGEMENT, OR MALFUNCTION. [code = INDWELLING URINARY CATHETER INSERTION; RN/DYED RAW STOCK BLOWER FEEDER/CHANNELING MACHINE OPERATOR TO PERFORM INSERTION OF 16 FR INDWELLING CATHETER, INSTILL 10 CC OF SALINE INTO BALLOON, SECURE TUBING WITH APPROPRIATE SECUREMENT DEVICE CHANGE EVERY 4WEEKSAND PRN FOR LEAKAGE, BLOCKAGE, DISLODGEMENT, OR MALFUNCTION.] Future Scheduled Test NEUROLOGIC AL SYSTEM MANAGEMENT; RN TO ASSESS AND TEACH, CHANNELING MACHINE OPERATOR/DYED RAW STOCK BLOWER FEEDER TO OBSERVE AND TEACH RELATED TO ALTERED NEUROLOGICAL STATUS TO MINIMIZE COMPLICATIONS AND REDUCE HOSPITALIZATION. [code = NEUROLOGICAL SYSTEM MANAGEMENT; RN TO ASSESS AND TEACH, CHANNELING MACHINE OPERATOR/DYED RAW STOCK BLOWER FEEDER TO OBSERVE AND TEACH RELATED TO ALTERED NEUROLOGICAL STATUS TO MINIMIZE COMPLICATIONS AND REDUCE HOSPITALIZATION.] Future Scheduled Test ANEMIA MAN AGEMENT; RN TO ASSESS AND TEACH, CHANNELING MACHINE OPERATOR/DYED RAW STOCK BLOWER FEEDER TO OBSERVE AND TEACH AND PROVIDE EDUCATION ON ANEMIA. [code = ANEMIA MANAGEMENT; RN TO ASSESS AND TEACH, CHANNELING MACHINE OPERATOR/DYED RAW STOCK BLOWER FEEDER TO OBSERVE AND TEACH AND PROVIDE EDUCATION ON ANEMIA.] Future Scheduled Test GASTROINTE STINAL MANAGEMENT; RN TO ASSESS AND TEACH, CHANNELING MACHINE OPERATOR/DYED RAW STOCK BLOWER FEEDER TO OBSERVE AND TEACH RELATED TO ALTERED GASTROINTESTINAL STATUS TO MINIMIZE COMPLICATIONS AND REDUCE HOSPITALIZATION. [code = GASTROINTESTINAL MANAGEMENT; RN TO ASSESS AND TEACH, CHANNELING MACHINE OPERATOR/DYED RAW STOCK BLOWER FEEDER TO OBSERVE AND TEACH RELATED TO ALTERED GASTROINTESTINAL STATUS TO MINIMIZE COMPLICATIONS AND REDUCE HOSPITALIZATION.] Future Scheduled Test PAIN MANAG EMENT; RN TO ASSESS AND TEACH, CHANNELING MACHINE OPERATOR/DYED RAW STOCK BLOWER FEEDER TO OBSERVE AND TEACH AND PROVIDE EDUCATION ON PAIN MANAGEMENT TECHNIQUES. [code = PAIN MANAGEMENT; RN TO ASSESS AND TEACH, CHANNELING MACHINE OPERATOR/DYED RAW STOCK BLOWER FEEDER TO OBSERVE AND TEACH AND PROVIDE EDUCATION ON PAIN MANAGEMENT TECHNIQUES.] Future Scheduled Test PRN VISITS ; NUMBER OF RN/DYED RAW STOCK BLOWER FEEDER/CHANNELING MACHINE OPERATOR VISITS: 2 RN/DYED RAW STOCK BLOWER FEEDER/CHANNELING MACHINE OPERATOR TO PERFORM: LITHOGRAPHIC ARTIST FOR THE FOLLOWING REASONS: URINARY COMPLICATIONS AND URINARY MOLECULAR TESTING [code = PRN VISITS; NUMBER OF RN/DYED RAW STOCK BLOWER FEEDER/CHANNELING MACHINE OPERATOR VISITS: 2 RN/DYED RAW STOCK BLOWER FEEDER/CHANNELING MACHINE OPERATOR TO PERFORM: LITHOGRAPHIC ARTIST FOR THE FOLLOWING REASONS: URINARY COMPLICATIONS AND URINARY MOLECULAR TESTING ] Future Scheduled Test RISK FOR H OSPITALIZATION; RN TO ASSESS/TEACH, CHANNELING MACHINE OPERATOR/DYED RAW STOCK BLOWER FEEDER TO OBSERVE/TEACH PATIENT/CAREGIVER ON RISK FOR HOSPITALIZATION/EMERGENCY ROOM VISITS, TEACH SIGNS AND SYMPTOMS THAT PUT PATIENT AT RISK, WHEN TO NOTIFY NURSE/PHYSICIAN OF COMPLICATIONS/DECLINE, AND WHEN TO CALL 911. [code = RISK FOR HOSPITALIZATION; RN TO ASSESS/TEACH, CHANNELING MACHINE OPERATOR/DYED RAW STOCK BLOWER FEEDER TO OBSERVE/TEACH PATIENT/CAREGIVER ON RISK FOR HOSPITALIZATION/EMERGENCY ROOM VISITS, TEACH SIGNS AND SYMPTOMS THAT PUT PATIENT AT RISK, WHEN TO NOTIFY NURSE/PHYSICIAN OF COMPLICATIONS/DECLINE, AND WHEN TO CALL 911.] Future Scheduled Test CARDIOVASC ULAR SYSTEM; RN TO ASSESS/TEACH, DYED RAW STOCK BLOWER FEEDER/CHANNELING MACHINE OPERATOR TO OBSERVE/TEACH RELATED TO ALTERED CARDIOVASCULAR STATUS TO MINIMIZE COMPLICATIONS AND REDUCE HOSPITALIZATION. [code = CARDIOVASCULAR SYSTEM; RN TO ASSESS/TEACH, DYED RAW STOCK BLOWER FEEDER/CHANNELING MACHINE OPERATOR TO OBSERVE/TEACH RELATED TO ALTERED CARDIOVASCULAR STATUS TO MINIMIZE COMPLICATIONS AND REDUCE HOSPITALIZATION.] Future Scheduled Test HYPERTENSI ON MANAGEMENT; RN TO ASSESS AND TEACH, DYED RAW STOCK BLOWER FEEDER/CHANNELING MACHINE OPERATOR TO OBSERVE AND TEACH WARNING SIGNS AND SYMPTOMS TO AVOID HOSPITALIZATION. [code = HYPERTENSION MANAGEMENT; RN TO ASSESS AND TEACH, DYED RAW STOCK BLOWER FEEDER/CHANNELING MACHINE OPERATOR TO OBSERVE AND TEACH WARNING SIGNS AND SYMPTOMS TO AVOID HOSPITALIZATION. ] Future Scheduled Test URINARY MO LECULAR TESTING PROTOCOL UP TO 2 PRN RN/DYED RAW STOCK BLOWER FEEDER/CHANNELING MACHINE OPERATOR VISITS MAY BE PERFORMED FOR S/S OF UTI. RN TO ASSESS, DYED RAW STOCK BLOWER FEEDER/CHANNELING MACHINE OPERATOR TO OBSERVE INITIATION OF UTI PROTOCOL. RN/CHANNELING MACHINE OPERATOR/DYED RAW STOCK BLOWER FEEDER TO INSTRUCT PATIENT AND/OR CAREGIVER ON S/S OF UTI TO REPORT TO RN/CHANNELING MACHINE OPERATOR/DYED RAW STOCK BLOWER FEEDER IF NEW OR WORSENING SYMPTOMS. DRINK PLENTY OF WATER THROUGHOUT THE DAY TO MAINTAIN HYDRATION (UNLESS CONTRAINDICATED.) URINATE WHEN THE URGE IS FELT, DO NOT WAIT. WASH GENITALS DAILY. WIPE FROM FRONT TO BACK AFTER HAVING A BOWEL MOVEMENT. RN/CHANNELING MACHINE OPERATOR/DYED RAW STOCK BLOWER FEEDER TO OBTAIN MOLECULAR URINE TESTING BY OPTION 1 OR OPTION 2 (OPTION 1) RN/CHANNELING MACHINE OPERATOR/DYED RAW STOCK BLOWER FEEDER TO OBTAIN U/A WITH REFLEX TO UTI PANEL (MOLECULAR) VIA CLEAN CATCH URINE AND IF UNABLE TO OBTAIN MAY PERFORM AN IN AND OUT CATH. IF PATIENT HAS INDWELLING CATHETER MAY OBTAIN FROM SAMPLING PORT. (OPTION 2) RN/CHANNELING MACHINE OPERATOR/DYED RAW STOCK BLOWER FEEDER TO OBTAIN UTI PANEL (MOLECULAR) VIA SWAB COLLECTION METHOD FROM ADULT BRIEF/DIAPER OR PAD IF PATIENT IS INCONTINENT. NOTIFY PROVIDER OF RESULTS AND OBTAIN FURTHER ORDERS. [code = URINARY MOLECULAR TESTING PROTOCOL UP TO 2 PRN RN/DYED RAW STOCK BLOWER FEEDER/CHANNELING MACHINE OPERATOR VISITS MAY BE PERFORMED FOR S/S OF UTI. RN TO ASSESS, DYED RAW STOCK BLOWER FEEDER/CHANNELING MACHINE OPERATOR TO OBSERVE INITIATION OF UTI PROTOCOL. RN/CHANNELING MACHINE OPERATOR/DYED RAW STOCK BLOWER FEEDER TO INSTRUCT PATIENT AND/OR CAREGIVER ON S/S OF UTI TO REPORT TO RN/CHANNELING MACHINE OPERATOR/DYED RAW STOCK BLOWER FEEDER IF NEW OR WORSENING SYMPTOMS. DRINK PLENTY OF WATER THROUGHOUT THE DAY TO MAINTAIN HYDRATION (UNLESS CONTRAINDICATED.) URINATE WHEN THE URGE IS FELT, DO NOT WAIT. WASH GENITALS DAILY. WIPE FROM FRONT TO BACK AFTER HAVING A BOWEL MOVEMENT. RN/CHANNELING MACHINE OPERATOR/DYED RAW STOCK BLOWER FEEDER TO OBTAIN MOLECULAR URINE TESTING BY OPTION 1 OR OPTION 2 (OPTION 1) RN/CHANNELING MACHINE OPERATOR/DYED RAW STOCK BLOWER FEEDER TO OBTAIN U/A WITH REFLEX TO UTI PANEL (MOLECULAR) VIA CLEAN CATCH URINE AND IF UNABLE TO OBTAIN MAY PERFORM AN IN AND OUT CATH. IF PATIENT HAS INDWELLING CATHETER MAY OBTAIN FROM SAMPLING PORT. (OPTION 2) RN/CHANNELING MACHINE OPERATOR/DYED RAW STOCK BLOWER FEEDER TO OBTAIN UTI PANEL (MOLECULAR) VIA SWAB [...] 2024-08-19 00:00:00 Outpatient NEW ADMISSION TADEO HANSON [facility] [id number] 18.75
== END 2024-07-13 11:26 | disposition home or self-care (01) ==
PROVIDERS: Emergency Provider Emergency Medicine; PCP Internal Medicine
DX: I12.9 Hypertensive chronic kidney disease with stage 1 through stage 4 chronic kidney disease, or unspecified chronic kidney disease (principal); N18.9 Chronic kidney disease, unspecified; I69.920 Aphasia following unspecified cerebrovascular disease; G40.909 Epilepsy, unspecified, not intractable, without status epilepticus; D50.9 Iron deficiency anemia, unspecified; R32 Unspecified urinary incontinence; Z96.653 Presence of artificial knee joint, bilateral; Z98.84 Bariatric surgery status; Z98.1 Arthrodesis status; Z86.0100 Personal history of colon polyps, unspecified; Z90.710 Acquired absence of both cervix and uterus; Z90.49 Acquired absence of other specified parts of digestive tract; Z79.899 Other long term (current) drug therapy; Z79.02 Long term (current) use of antithrombotics/antiplatelets
CPT/HCPCS: 99283; A9270

== ENCOUNTER 2024-11-13 09:34 | Outpatient (CLI) | payer MEDICARE, OTHER, SELFPAY ==
--- NOTE | ~2024-11-13 | XR_ITS ---
Exam: X-ray left hand minimum 3 views CLINICAL HISTORY: Pain in hand. TECHNIQUE: 3 images of the left hand were obtained. Comparisons: None available. FINDINGS: Bones appear osteopenic. Severe degenerative change in the first carpometacarpal joint. Mild joint space narrowing in the first and second metacarpophalangeal joints. Moderate joint space narrowing in all of the interphalangeal joints of all 5 fingers. No fracture. No dislocation. Soft tissue swelling about the left hand. IMPRESSION: 1. No fracture identified. 2. Extensive degenerative change scattered throughout the left hand as detailed above. Reviewed, dictated and finalized at location A.
--- NOTE | ~2024-11-13 | XR_ITS ---
Exam: X-ray hand right minimum 3 views. CLINICAL HISTORY: Pain Comparisons: None available. TECHNIQUE: 3 images of the right hand were obtained. 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 Soft tissue swelling about the right hand and right wrist. Bones appear osteopenic. Moderate joint space narrowing in the first carpometacarpal joint and first, second and third metacar pophalangeal joints. Moderate joint space narrowing in the interphalangeal joints of all 5 digits. No fracture. IMPRESSION: 1. No fracture. 2. Extensive degenerative change throughout the right hand as detailed above. Reviewed, dictated and finalized at location A.
--- OUTSIDE RECORDS SUMMARY | 2024-11-13 10:11 | XMS_ITS | Clinical Summary ---
Author Organization [facility] Address [address] [place] [address] Care Team Providers Care Filling Mixer Name Role Phone Maria Del Carmen Gil [...] Take 1 Capsule by mouth. Active omega 6-two-zbu-fish oil 60-90-500 mg Capsule Take by mouth. [...] 57.2 kg (126 lb) 02/20/2019 2:23 PM OPERATIONS SUPERVISOR Height 157.5 cm (5' 2) 02/20/2019 2:23 PM OPERATIONS SUPERVISOR Body Mass Index 23.05 02/20/2019 2:23 PM OPERATIONS SUPERVISOR Plan of Treatment Health Maintenance Due Date Last Done Comments DTAP/TDAP/TD VACCINES (1 - Tdap) 1959 PNEUMOCOCCAL VACCINE 50+ YEARS (1 of 1 - PCV) 04/30/18 93 ZOSTER VACCINE (1 of 2) 1992 OSTEOPOROSIS SCREENING 2007 RSV VACCINE (60+ or ) (1 - 1-dose 75+ series) 2017 INFLUENZA VACCINE (#1) 2024 Insurance MEDICARE PART A AND B [employer] CHOICE POS II Care Teams Filling Mixer Relationship Specialty Start [place] [id number] [address] [address] PCP - General Gastroenterology 01/09/19
--- OUTSIDE RECORDS SUMMARY | 2024-11-13 10:11 | XMS_ITS | Clinical Summary ---
Author Organization [facility] Address [address] [place], [place] [id number] Care Team Providers Care Hair Clipper Power Name Role Phone Unavailable Primary Care Provider [...] P M CDT Height 157.5 cm (5' 2) 07/22/2020 5:06 PM CDT Body Mass Index 22.72 07/22/2020 5:06 PM CDT Plan of Treatment Health Maintenance Due Date Last Done Comments Annual Visit Topic 1941 DTaP/Tdap/Td Vaccines (1 - Tdap) 1961 Pneumococcal Vaccine: 65+ Ye ars (1 of 2 - PCV) 1992 HIB Vaccines Aged Out No longer eligi ble based on patient's age to complete this topic HPV Vaccines Aged Out No longer eligi ble based on patient's age to complete this topic Hepatitis A Vaccines Aged Out No long er eligible based on patient's age to complete this topic Hepatitis B Vaccines Aged Out No long er eligible based on patient's age to complete this topic IPV Vaccines Aged Out No longer eligi ble based on patient's age to complete this topic Meningococcal Vaccine Aged Out No rip gale eligible based on patient's age to complete this topic Advance Directives * Full Resuscitation (Latest Code Status on File) Date Activated Date Inactivated Comments 07/22/2020 5:56 PM 07/31/2020 2:47 PM
--- OUTSIDE RECORDS SUMMARY | 2024-11-13 10:11 | XMS_ITS | Encounter Summary ---
Author Organization [facility] Address [address] [facility] [place] [address] Care Team Providers Care Production Clerks Supervisor Name Role Phone Maria Del Carmen Gil MD Primary Care Provider [phone] Maria Del Carmen Gil MD Unavailable [phone] Maria Del Carmen Gil MD Unavailable [phone] Encounter Details Date Type Department Care Team (Latest Contact Info) Description 07/22/2020 11:46 AM CDT Hospital Encounter [facility] [id number] [place] [id number] [place] [address] [facility] [place] [address] [facility] Social History Tobacco Use Types [...] any time in the past 12 m [facility], were you homeless or living in a fci (including now)? Patient unable to answer 06/07/2024 Comments No Sex and Gender Information Value Date Recorded Sex Assigned at Not on file Legal Sex Female 11:43 AM CDT Gender Identity Not on file Sexual Orientation Not on file COVID-19 Exposure Response Date Recorded In the last 10 days, have yo u been in contact with someone who was confirmed or suspected to have Coronavirus/COVID-19? Unable to assess 07/22/2021 3:56 PM CDT documented as of this encounter Functional Status * Question Answer Date of Assessment Author Q1: How often do you have a drink containing alcohol? Patient unable to answer 06/07/2024 9:00 AM Tamika Bhakta BSW Q2: How many drinks containing alcohol do you have on a typical day when you are drinking? Patient unable to answer 06/07/2024 9:00 AM Tamika Bhakta BSW Q3: How often do you have six or more drinks on one occasion? Patient unable to answer 06/07/2024 9:00 AM Tamika Bhakta BSW * Audit-C Score Answer Date of Assessment Author -1 06/07/2024 9:00 AM Tamika Bhakta BSW * Is person deaf or have serious hearing difficulty? Answer Date of Assessment Author No 07/22/2020 11:24 AM CDT Robby Godfrey RN * Is person blind or have serious difficulty seeing? Answer Date of Assessment Author No 07/22/2020 11:24 AM CDT Robby Godfrey RN * Does person have serious difficulty walking/climbing stairs? Answer Date of Assessment Author No 07/22/2020 11:24 AM CDT Robby Godfrey RN * Does person have difficulty dressing/bathing? Answer Date of Assessment Author No 07/22/2020 11:24 AM CDT Robby Godfrey RN * Does person have difficulty doing errands alone? Answer Date of Assessment Author No 07/22/2020 11:24 AM CDT Robby Godfrey RN documented as of this encounter Mental Status * Does person have difficulty concentrating/remembering/making decisions? Answer Entry Date Author Yes 07/22/2020 11:24 AM CDT Robby Godfrey RN documented in this encounter Plan of Treatment Upcoming Encounters Date Type Department Care Team (Late st Contact Info) Description 11/27/2024 1:00 PM CDT Office Visit [facility] - Neurology [address] [place] [address] Kyung Haq APRN-PIECE GOODS PACKER [address] [place] [id number] documented as of this encounter Visit Diagnoses Not on filedocumented in this encounter Additional Health Concerns Infection Onset Date Last Indicated Resolved Time COVID-19 Under Investigation 10/05/2021 10/05/2021 10/05/2021 11:10 AM CDT documented as of this encounter Care Teams Production Clerks Supervisor Relationship Specialty Start Date End Date Maria Del Carmen Gil MD [address] [place] [id number] PCP - General 07/22/20 07/23/20 Maria Del Carmen Gil MD [address] [place] [id number] Gastroenterology 07/22/20 Maria Del Carmen Gil MD [address] [place] [id number] 07/15/20 documented as of this encounter
--- OUTSIDE RECORDS SUMMARY | 2024-11-13 10:12 | XMS_ITS | Encounter Summary ---
Author Organization [facility] Address [address] [place] [address] Care Team Providers Care Lathe Spotter Name Role Phone Maria Del Carmen Gil MD Primary Care Provider Encounter Details Date Type Department Care Team (Late st Contact Info) Description 11/12/2020 Prep for Procedure [facility] Pre-Admission Testing [facility] [address] [place], [place] [id number] Bradley Turner MD 3 [facility] [place] [address] Social History Tobacco Use Types Packs/Day Years [...] as of this encounter Functional Status * Calculated C-SSRS Risk Score (Lifetime/Recent) Answer Date of Assessment Author Status No Risk Indicated 11/12/2020 5:40 AM CDT Jerilyn Wilson RN Active * [place] Suicide Severity Rating Scale (Screener/Recent Self-Report) Question Answer Date of Assessment Author Status 1. Wish to be (Past 1 Month) No 11/12/2020 5:40 AM CDT Jerilyn Wilson RN Active 2. Non-Specific Active Suicidal Thoughts (Past 1 Month) No 11/12/2020 5:40 AM CDT Jerilyn Wilson RN Active 6. Suicidal Behavior (Lifetime) No 11/12/2020 5:40 AM CDT Jerilyn Wilson RN Active documented as of this encounter Plan of [...] By: Oni Flower MD, 11/11/2020 2:18 PM us Bradley Turner MD GENERAL IMAGING Kori l Result * PTT, PARTIAL THROMBOPLASTIN TIME (11/10/2020 9:37 AM CDT) PTT 28.5 25.1 - 36.5 SEC 11/10/2020 10:28 AM CDT [facility] 11/10/2020 9:37 AM CDT Bradley Turner MD LABORATORY Kori l Result Performing Organization Address [facility] de Phone Number [facility] [address] [place] [address], * (ABNORMAL) PROTIME/INR, VENOUS (11/10/2020 9:37 AM CDT) PROTIME 13.0(H) 10.2 - 12.9 SEC 11/10/2020 10:28 AM CDT [facility] INR 1.1 11/10/2020 10:28 AM CDT [facility] Comment: Recommended INR Therapeutic Goals: 2.0-3.0 Routine Therapy 2.5-3.5 Mechanical Prosthetic Valves (High Risk) 11/10/2020 9:37 AM CDT Bradley Turner MD LABORATORY Kori l Result Performing Organization Address [facility] Co de Phone Number [facility] [address] [place] [address], * (ABNORMAL) BASIC METABOLIC PANEL (11/10/2020 9:37 AM CDT) GLUCOSE 98 70 - 99 MG/DL 11/10/2020 10:17 AM CDT [facility] BUN 29(H) 7 - 18 MG/DL 11/10/2020 10:17 AM CDT [facility] CREATININE S/P/B 1.38(H) 0.55 - 1.02 MG/DL 11/10/2020 10:17 AM CDT [facility] SODIUM S/P/B 138 136 - 145 MMOL/L 11/10/2020 10:17 AM CDT [facility] POTASSIUM S/P/B 4.8 3.5 - 5.1 MMOL/L 11/10/2020 10:17 AM CDT [facility] CHLORIDE S/P/B 108 100 - 108 MMOL/L 11/10/2020 10:17 AM CDT [facility] CO2 24.5 21 - 32 MMOL/L 11/10/2020 10:17 AM CDT [facility] CALCIUM S/P/B 9.0 8.5 - 10.1 MG/DL 11/10/2020 10:17 AM CDT [facility] ANION GAP 5.5 5 - 15 MMOL/L 11/10/2020 10:17 AM T [facility] BUN CREATININE RATIO 21.0 6 - 26 11/10/2020 10:17 AM CDT [facility] EGFR NON-AFR. AMER. 37(L) >90 ML/MIN/1.7 3 M2 11/10/2020 10:17 AM CDT [facility] EGFR AFR. AMER. 42(L) >90 ML/MIN/1.7 3 M2 11/10/2020 10:17 AM T [facility] Comment: NOTE: eGFR is not calculated for patients <18 years of age. This is an estimated GFR (CKD EPI) and should not be used for calculating drug doses. 11/10/2020 9:37 AM CDT Bradley Turner MD LABORATORY Kori l Result [facility] [address] [place] [address], [place] [phone] * (ABNORMAL) CBC W/DIFF AUTOMATED (11/10/2020 9:37 AM CDT) [facility] WBC 5.8 4.5 - 11.0 x10'3/uL 11/10/2020 9:57 AM CDT [facility] RBC 3.54(L) 4.20 - 5.40 x10'6/uL 11/10/2020 9:57 AM CDT [facility] HGB 11.1(L) 12.0 - 16.0 G/DL 11/10/2020 9:57 AM CDT [facility] HCT 34.2(L) 38.0 - 48.0 % 11/10/2020 9:57 AM CDT [facility] MCV 96.6 81.0 - 99.0 FL 11/10/2020 9:57 AM CDT [facility] MCH 31.4(H) 27.0 - 31.0 PG 11/10/2020 9:57 AM CDT [facility] MCHC 32.5 32.0 - 36.0 G/DL 11/10/2020 9:57 AM CDT [facility] RDW 12.4 11.5 - 14.5 % 11/10/2020 9:57 AM CDT [facility] PLT 217 130 - 400 x10'3/uL 11/10/2020 9:57 AM CDT [facility] MPV 10.5 9.3 - 12.2 FL 11/10/2020 9:57 AM CDT [facility] DIFFERENTIAL TYPE AUTOMATED DIFFERENTIAL 11/10/2020 9:57 AM CDT [facility] NEUTROPHILS % 65.7 % 11/10/2020 9:57 AM CDT [facility] LYMPHOCYTES % 24.1 % 11/10/2020 9:57 AM CDT [facility] MONOCYTES % 6.9 % 11/10/2020 9:57 AM CDT [facility] EOSINOPHILS 1.9 % 11/10/2020 9:57 AM CDT [facility] BASOPHILS 1.2 % 11/10/2020 9:57 AM CDT [facility] IMMATURE GRANS % 0.2 % 11/11/19 9:57 AM CDT [facility] ABS. NEUTROPHILS TOTAL 3.79 1.80 - 7.70 x10'3/uL 11/10/2020 9:57 AM CDT [facility] ABS. LYMPHOCYTES 1.39 1.00 - 4.80 x10'3/uL 11/10/2020 9:57 AM CDT [facility] ABS. MONOCYTES 0.40 0.24 - 0.86 x10'3/uL 11/10/2020 9:57 AM CDT [facility] ABS. EOSINOPHILS 0.11 0.04 - 0.36 x10'3/uL 11/10/2020 9:57 AM CDT [facility] ABS. BASOPHILS 0.07 0.01 - 0.08 x10'3/uL 11/10/2020 9:57 AM CDT [facility] ABS. IMMATURE GRANULOCYTES 0.01 0.00 - 0.49 x10'3/uL 11/10/2020 9:57 AM CDT [facility] 11/10/2020 9:37 AM CDT Bradley Turner MD LABORATORY Kori l Result [facility] [address] [place] [address], documented in this encounter Visit Diagnoses Diagnosis Neurogenic bladder due to old stroke Preoperative testing Preoperative examination, unspecified Neurogenic bladder due to old stroke- Primary Preoperative testing Preoperative examination, unspecified documented in this encounter Care Teams Lathe Spotter Relationship Specialty Start Date End Date Maria Del Carmen Gil MD [address] [address] PCP - General INTERNAL MEDICINE 11/06/20 documented as of this encounter
--- OUTSIDE RECORDS SUMMARY | 2024-11-13 10:12 | XMS_ITS | Clinical Summary ---
Author Organization [facility] Address [address] [facility] [place] [address] Care Team Providers Care Refuge Manager Name Role Phone Fernando Caputo MD Primary Care Provider [phone] Allergies Active Allergy Reactions Criticality Noted Date [...] 50-12.5 mg per tablet 9 Active omega 8-xat-occ-fish oil (FISH OIL) 60-90-500 mg capsule Take [...] Plan CT scan lumbar spine and re-evaluation Surgical History Surgery Date Site/Laterality Comments BARIATRIC [...] often do you have a drink containing alc ohol? Never 10/31/2023 Average Number of Drinks Not on file 024 Frequency of Binge Drinking Not on file 10/03 PHQ-2 Answer Date Recorded PHQ-2 Score 0 11/25/2018 Personal Safety Answer Date Recorded Have you ever been in or are you currently in a harmful physical or emotional relationship or is someone making you feel afraid or unsafe? Denies 10/31/2023 Comments No Sex and Gender Information Value Date Recorded Sex Assigned at Not on file Legal Sex Female 1:38 AM CUTTER [employer]UMIN[employer] SHEET Gender Identity Not on file Sexual Orientation [...] 10:55 AM CDT Height 149.9 cm (4' 11) 10/31/2023 10:55 AM CDT Body Mass Index 21.01 10/31/2023 10:55 AM CDT Plan of Treatment Health Maintenance Due Date Last Done Comments Osteoporosis Screening-Bone Density Scan 1940 Hepatitis B Screening 1960 Pneumococcal vaccine 65+ (1 of 1 - PCV) 1992 Zoster Vaccine (1 of 2) 1992 Well Visit 65+ 2007 Depression Screening 06/22/2019 06/21/2018, 06/22/19 19 Covid-19 Vaccine (5 2023-2 5 season) 2023 02/02/2022, 03/05/2021, 06/25/2020, Additional history exists Fall Risk Assessment 10/30/2024 10/31/2023 Influenza Vaccine (#1) 2024 , 02/15/2023, 02/02/2022, Additional history exists DTaP/Tdap/Td Vaccine (2 - Td or Tdap) 08/05/2025 08/06/2015 Insurance [facility] P[facility] MEDICARE [facility] MEDICARE T [facility] Address: [facility] [id number] [place] [address] [facility] Advance Directives For more information, please contact: [phone] * Full Code (Latest Code Status on File) Date Activated Date Inactivated Comments 10/31/2023 10:54 AM 10/31/2023 5:10 PM Care Teams Refuge Manager Relationship Specialty Start Date End Date Fernando Caputo MD PCP - General Internal Medicine 06/15/24
--- OUTSIDE RECORDS SUMMARY | 2024-11-13 10:12 | XMS_ITS | Clinical Summary ---
Author Organization [facility] Address [address] [place] [address] Care Team Providers Care Hand Developer Name Role Phone Maria Del Carmen Gil [...] 4 (four) hours as needed. 07/22/2020 Active [place]-3 Fatty Acids (OMEGA-3 FISH OIL OR) Take [...] 6:21 AM CDT Height 157.5 cm (5' 2) 11/12/2020 6:21 AM CDT Body Mass Index 19.96 11/12/2020 6:21 AM CDT Plan of Treatment Health Maintenance Due Date Last Done Comments DTaP, Tdap and Td Vaccines ( 1 - Tdap) 1961 Pneumococcal Vaccine: 50+ Years (1 of 1 - PCV) 1992 Zoster Vaccines (1 of 2) 1992 Annual Medicare Wellness Visit 2007 Dexa Scan (General) 2007 RSV Immunization or 60+ Years (1 [...] age to complete this topic Insurance [facility]ICARE [facility] Care Teams Hand Developer Relationship Specialty Start Date End Date Maria Del Carmen Gil MD [address] [facility] [address] [place] [address] PCP - General INTERNAL MEDICINE 11/06/20
--- OUTSIDE RECORDS SUMMARY | 2024-11-13 10:12 | XMS_ITS | Clinical Summary ---
Author Organization [facility] [employer] Address [address] [facility] [place] [address] Care Team Providers Care Donor Technician Name Role Phone Maria Del Carmen Gil MD Unavailable [phone] Maria Del Carmen Gil MD Unavailable [phone] Maria Del Carmen Gil MD Unavailable [phone] Fernando Caputo MD Primary Care Provider [phone] Source Comments [facility],non-owned Affiliates and Associated Physician Practices is amultiple site organization consisting of ambulatory clinics and hospital sitesin [place] and [place]. This disclosure is being madepursuant to the Care Everywhere program and may not contain all information available regarding this patient. Last updated 17.[facility] Allergies Active Allergy Reactions Criticality Noted Date Comments Ibuprofen Anaphylaxis High 07/16/2020 Morphine Other 07/16/2020 Difficult to wake up from (imported from other chart) Nsaids Cardiac Injury High 07/16/2020 Imported from other chart. Reported to cause cardiac arrest? Medications * Be aware that medications may not be up to date on this document. Alwaysverify current medications with the patient. VITAMIN E PO Take 200 Units by mouth once daily. Active cyanocobalamin (VITAMIN B-12) 1000 MCG tablet Take 1 (one) tablet by mouth once daily Active B Complex Vitamins (VITAMIN B COMPLEX PO) Take by mouth once daily. Active vitamin D3-cholecalcife rol (CHOLECACIFEROL ) 400 UNIT tablet Take 1 (one) tablet by mouth once daily Active Rock-3 Fatty Acids (FISH OIL PO) Take by mouth once daily. Active thiamine (VITAMIN B-1) 100 MG tablet Active acetaminophen (TYLENOL) 325 MG tablet Take 2 (two) tablets by mouth every 4 hours as needed Maximum allowable Acetaminophen amount = 4 Grams (4000 mg) / 24 hours. 1 Active atorvastatin (LIPITOR) 80 MG tablet Take 1 (one) tablet by mouth at bedtime 1 Active senna-docusate (SENOKOT-S) 8.6-50 MG tablet Take 1 (one) tablet by mouth 2 times daily 1 Active calcium citrate (CITRACAL 950) 950 MG tablet Take 1 (one) tablet by mouth once daily 1 Active multivitamin daily tablet Take 1 (one) tablet by mouth once daily 1 Active cyclobenzaprine (FLEXERIL) 10 MG tablet Take 1 (one) tablet by mouth 3 times daily as needed for Muscle Spasms Active pantoprazole EC (PROTONIX) 40 MG tablet Take 1 (one) tablet by mouth 2 times daily 120 tablet 3 2 Active aspirin (ASPIRIN) 81 MG chew tablet Take 1 (one) tablet by mouth once daily 30 tablet 3 2 Active chlorthalidone (HYGROTON) 25 MG tablet 2 Active citalopram (CELEXA) 20 MG tablet Take 1 (one) tablet by mouth once daily 2 Active EFFER-K 25 MEQ efferv tablet 2 mEq once daily 2 Active sacubitril-vals dimas (ENTRESTO) 24-26 MG tablet Take 1 (one) tablet by mouth 2 times daily 180 tablet 2 2 Active triple antibiotic (Neosporin) 5-400-5000 ointment Apply to affected area 3 times daily 30 g 2 Active miSOPROStol (Cytotec) 200 MCG tablet TAKE 1 TABLET BY MOUTH EVERY DAY WITH A MEAL 2 Active carvedilol (Coreg) 12.5 MG tablet Take 1 (one) tablet by mouth 2 times daily with morning and evening meal 180 tablet 3 4 Active busPIRone (Buspar) 15 MG tablet Take 1 (one) tablet by mouth 3 times daily 4 Active sucralfate (Carafate) 1 GM/10ML suspension TAKE 10 ML BY MOUTH BEFORE MEALS AND BEFORE BEDTIME. 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, not intractable, without status epilepticus (HCC) Take 1 (one) tablet by mouth 2 times daily 180 tablet 3 5 Active cephalexin (Keflex) 250 MG capsuleIndicati ons:recurrent UTI, chronic prophylaxis Take 1 (one) capsule by mouth once daily Reasons: recurrent UTI, chronic prophylaxis 30 capsule 1 5 Active ferrous sulfate 325 (65 FE) MG tablet Take 1 (one) tablet by mouth every 2 days 5 Active clopidogrel (plaVIX) 75 MG tablet Take 1 (one) tablet by mouth once daily 30 tablet 5 Active renal vitamin (Dialyvite) tablet Take 1 (one) tablet by mouth once daily 5 Active Active Problems Problem Noted Date Diagnosed Date Cerebral infarction, unspecified 02/21/2024 Chronic or unspecified gastrojejunal ulcer with hemorrhage 02/21/2024 Dysuria 02/21/2024 Encounter for screening mamm ogram for malignant neoplasm of breast 02/21/2024 Epigastric pain 02/21/2024 Epilepsy, unspecified, not i ntractable, without status epilepticus 02/21/2024 Frequency of micturition 02/21/2024 Hematuria, unspecified 02/21/2024 spiritual care coordinator (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 02/21/2024 Metabolic encephalopathy 02/21/2024 Noninfective gastroenteritis and colitis, unspec ified 02/21/2024 Other fecal abnormalities 02/21/2024 Other engraving plate maker (current) drug therapy 4 Pain due to genitourinary pr osthetic devices, [...] Encounters Date Type Department Care Team Description 09/24/2024 Refill [facility] - Cardiology [address] [facility], [facility] [address] [place] [address] Sharon Harman APRN-REGISTERED NURSE NURSERY Refill Request 08/29/2024 Refill [facility] - Neurology [address] [facility] [place] [phone] Kyung Haq APRN-REGISTERED NURSE NURSERY Refill Request 08/19/2024 Refill [facility] - Cardiology [address], [facility] [address] [place] [address] Sharon Harman APRN-WOLF Refill Request from Last 3 Months Immunizations Immunization Administration Dates Next Due INFLUENZA VACCINE 01/10/2020, 9,01/06/2019,2016,12/18/2014 INFLUENZA VACCINE, ADJUVANTE D, QUADR. (FLUAD QUADRIVALENT; [...] any time in the past [address] [facility], were you homeless or living in a residential (including now)? Patient unable to answer 06/07/2024 [...] Oxygen Concentration 35% 06/08/2024 1 0:00 AM MILLING GENERAL SUPERINTENDENT Weight 50.1 kg (110 lb 7.2 oz) 06/09/2024 2:00 A M MILLING GENERAL SUPERINTENDENT Height 160 cm (5' 2.99) 06/07/2024 3:00 AM MILLING GENERAL SUPERINTENDENT Body Mass Index 19.57 06/07/2024 3:00 AM MILLING GENERAL SUPERINTENDENT Plan of Treatment Upcoming Encounters Date Type Department Care Team (Late st Contact Info) Description 11/27/2024 1:00 PM CDT Office Visit [facility] - Neurology [address] [place] [address] Kyung Haq, MECHANICAL MAINTENANCE-REGISTERED NURSE NURSERY [address] [place] [id number] Health Maintenance Due Date Last Done Comments BONE DENSITY TESTING 1940 PNEUMOCOCCAL VACCINE 50+ (1 of 2 - PCV) 1961 ZOSTER VACCINE (1 of 2) 1992 Respiratory Syncytial Virus (RSV) Vaccine Pt: or over 60 yrs (1 - 1-dose 75+ series) 2017 COVID-19 VACCINE ( season) 2023 03/05/2021, 06/25/2020, 06/03/2020 DEPRESSION SCREENING 04/04/2024 MEDICARE AWV CALENDAR YEAR 2024 INFLUENZA VACCINE (#1) 2024 , 01/30/2019, 01/06/2019, Additional history exists DTAP/TDAP/TD VACCINES [...] this topic Medical Devices Implanted Type Area Resource Program Teacher Device Identifier Shelf Expiration Date Model / Serial / Lot Rcdr Crd Rvl Linq Loop - [id number] Implanted:Qty: 1 on 07/21/2020 by Fanny Beach MD at [facility] Loop Recorder Chest Wall [employer] [address] 03/01/2021 [id number] / [id number] / Wire K .035 X 5.5in Implanted:Qty: 2 on 06/20/2014 by Josh Sibley MD at [facility] Right: Thumb [employer] 5600-21-0 00 / / Description:Placed for tempo rary fixation Insurance AETNA MEDICARE ADV AETNA AETNA AETNA MEDICARE Member Subscriber Plan / Payer (Ef fective 2000-Present) Name:Ahmet Patricia Member ID:[id number] Relation to Subscriber:Self Name:AHMET PATRICIA Subscriber ID:[id number] Payer ID:Not on file Group ID:Not on file Type:Medicare Address: [address] [address] AETNA * Guarantor: AHMET PATRICIA Account Type Relation to Patient Date of Phone Billing Address Personal/Family 1940 [address] AETNA MEDICARE ADV Advance Directives Documents on File Type Date Recorded 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 Care Teams Donor Technician Relationship Specialty Start Date End Date Fernando Caputo MD [address] [place] [address] PCP - General Internal Medicine 05/30/24 Maria Del Carmen Gil MD [address] [place] [address] 07/24/20 Maria Del Carmen Gil MD [address] [address] Gastroenterology 07/22/20 Maria Del Carmen Gil MD [address] [place] [address] 07/15/20
--- OUTSIDE RECORDS SUMMARY | 2024-11-13 10:12 | XMS_ITS | Clinical Summary ---
Author Organization [facility] Address [address] [place] [address] Phone Care Team Providers Care Medical Lab Assistant Name Role Phone Provider, Not On File [...] Not on file Insurance MEDICARE Care Teams Medical Lab Assistant Relationship Specialty Start Date End Date Provider, Not On File [place] PCP - General 11/12/15
== END 2024-11-13 09:35 | disposition home or self-care (01) ==
PROVIDERS: PCP Internal Medicine; Visit Provider Plastic Surgery
DX: M19.041 Primary osteoarthritis, right hand (principal); M19.042 Primary osteoarthritis, left hand
CPT/HCPCS: 73130